=== PATIENT | female | born 1985 | race Caucasian/White ===

== ENCOUNTER 2019-08-12 11:07 | Emergency (ER) | payer OTHER, SELFPAY ==
--- NOTE | ~2019-08-12 | CT_ITS ---
EXAMINATION: CT soft tissue neck w con EXAM DATE: 08/12/2019 12:47 INDICATION: Left-sided facial swelling, started on antibiotics for infected tooth. Swelling has progr essed. TECHNIQUE: Spiral CT of the neck was performed following intravenous injection of 75 mL Omnipaque 350 . Axial, coronal and sagittal images were reviewed. The dose-length product (DLP) for this examinat ion was 493.52 mGy-cm. The exposure was tailored according to patient size (auto mA exposure control ), and iterative reconstruction (ASIR) was used as additional dose reduction technique. There is no prior study for comparison. FINDINGS: There is swelling along the left side of the face, superficial and deep to the platysmas mu scle. There is some reactive left submandibular lymph node. No pathologically enlarged lymph nodes or drainable abscess identified. There are several dental cavities noted. There is a thin-walled cystic mass in the midline at the level of the hyoid and thyroid cartilage jacobo suring up to 3 cm, without any solid component or adjacent inflammation. Appearance is most consisten t with an incidental thyroglossal duct cyst. The thyroid gland is unremarkable. The submandibular and parotid glands are symmetric. The superior mediastinum is unremarkable. The airway is unremar kable. Parapharyngeal and pre-glottic fat planes are preserved. The opacified vasculature is solis nt. The orbits are unremarkable. Visualized sinuses and mastoid air cells are well aerated. Mary g apices are clear. Cervical spine unremarkable. IMPRESSION: 1. Left facial swelling, some reactive submandibular lymph nodes. No drainable abscess. 2. Incidental anterior midline simple cystic neck mass most likely thyroglossal duct cyst. 3. Dental cavities. Reviewed, dictated and finalized at location B. IMPRESSION: 1. Left facial swelling, some reactive submandibular lymph nodes. No drainable abscess. 2. Incidental anterior midline simple cystic neck mass most likely thyroglossa l duct cyst. 3. Dental cavities.
[2019-08-12 11:11] VITALS: BP 131/95; PULSE 99; RESP 17; TEMP 37.4; O2SAT 98
[2019-08-12] MEDS: SODIUM CHLORIDE 0.9% IV 1,000 ML 999 ML IV CONT (12:06)
[2019-08-12] MEDS: CLINDAMYCIN 900 MG/NS 50 ML 900 MG/50 ML PIGGYBACK 50 MG IVPB (12:10)
[2019-08-12 12:17] LABS: Basophils Absolute Auto 0.1 K/mm3 (0.0-0.1); Basophils Percent Auto 0.4 % (0.2-1.2); Eosinophils Absolute Auto 0.3 K/mm3 (0-0.3); Eosinophils Percent Auto 2.8 % (0-4.4); Hematocrit 44.8 % (37.0-47.0); Hemoglobin 14.7 g/dL (12.0-15.0); Immature Granulocyte Absolute 0.04 K/mm3 (0.00-0.031); Immature Granulocyte Percent A 0.3 % (0-0.5); Lymphocytes Absolute Auto 2.99 K/mm3 (0.9-3.2); Lymphocytes Percent Auto 24.5 % (18.3-44.2); Mean Corpuscular HGB Conc 32.8 g/dl (32-36); Mean Corpuscular Hemoglobin 27.4 pg (26-34); Mean Corpuscular Volume 83.6 fl (80-100); Mean Platelet Volume 11.6 fl (7.4-10.4); Monocytes Absolute Auto 1.1 K/mm3 (0.1-0.6); Monocytes Percent Auto 9.2 % (2.6-8.5); Neutrophils Absolute Auto 7.7 K/mm3 (1.3-6.7); Neutrophils Percent Auto 62.8 % (45.5-73.1); Platelet Count Result 262 k/mm3 (150-375); Red Blood Count 5.36 M/mm3 (4.2-5.4); Red Cell Distribution Width 13.6 % (11.5-14.5); White Blood Count 12.2 K/mm3 (4.5-10.0)
--- NOTE | 2019-08-12 12:19 | ED.GENADULT ---
HPI - General Adult General Chief complaint: Unspecified <Zaid Amaya PA-C - Last Filed: 08/12/19 14:19> Stated complaint: left side of face is swollen <Zaid Amaya PA-C - Last Filed: 08/12/19 14:19> Time Seen by Provider: 08/12/19 11:08 <Zaid Amaya PA-C - Last Filed: 08/12/19 14:19> Source: patient <Zaid Amaya PA-C - Last Filed: 08/12/19 14:19> Mode of arrival: ambulatory <Zaid Amaya PA-C - Last Filed: 08/12/19 14:19> Limitations: no limitations <Zaid Amaya PA-C - Last Filed: 08/12/19 14:19> History of Present Illness HPI narrative: Patient is a 34-year-old female who presents with left-sided facial pain and dental pain that began over the course of the last several days on Monday was started on amoxicillin twice daily. Patient has been taking this medication with minimal improvement noting that she continues to have some swelling also took ibuprofen patient denies any difficulty swallowing patient denies any fever chills nausea vomiting. Patient notes that her sugars have been normal and have not elevated. On arrival patient in the room in no distress <Zaid Amaya PA-C - Last Filed: 08/12/19 14:19> Related Data Home medications: Home Medications Medication Instructions Recorded Confirmed amoxicillin 250 mg PO TID 08/12/19 <Zaid Amaya PA-C - Last Filed: 08/12/19 14:19> Allergies/adverse reactions: Allergies Allergy/AdvReac Type Severity Reaction Status Date / Time No Known Allergies Allergy Unknown Verified 08/12/19 11:10 <Zaid Amaya PA-C - Last Filed: 08/12/19 14:19> Review of Systems Review of Systems: All systems reviewed & are unremarkable except as noted in HPI and below <Zaid Amaya PA-C - Last Filed: 08/12/19 14:19> PMFSH Past Medical History Medical History: Medical History Diabetes <CONNER Irvin Last Filed: 08/12/19 14:19> Social History Social History: Social History Smoking status: Never smoker Gender identity (if verbalized by the patient): Female <Zaid Amaya PA-C - Last Filed: 08/12/19 14:19> Exam Narrative: Exam Narrative: GENERAL: Well-appearing, obese, and in no acute distress. HEAD: Normocephalic, atraumatic. Swelling along the left cheek no erythema with tenderness along the mandible EYES: PERRLA and EOMI. ENT: Nares clear, no rhinorrhea or epistaxis. Mucous membranes moist. Oropharynx without tonsillar hypertrophy exudate or other lesions. Patient with gross dentition with tenderness along the lateral gumline patient with soft floor of the mouth uvula midline no trismus or drooling NECK: Supple. No adenopathy or masses. CHEST: Clear to auscultation. No respiratory distress. No wheezes rales or rhonchi HEART: Regular rate and rhythm. No murmur heard. EXTREMITIES: Normal range of motion. No edema. SKIN: Warm, dry, no rash. NEURO: No focal deficits. Alert and oriented x3. PSYCH: Normal mood and affect. <Zaid Amaya PA-C - Last Filed: 08/12/19 14:19> Course Course Emergency Course: Patient in the room aware of case findings treatment plan and diagnosis was given medications in the emergency department will be switched to clindamycin and advised to follow-up with dentistry and given reasons to return patient is afebrile nontoxic-appearing no distress <Zaid Amaya PA-C - Last Filed: 08/12/19 14:19> Vital Signs Vital signs: Vital Signs Temperature 99.3 F 08/12/19 11:11 Pulse Rate 99 08/12/19 11:11 Respiratory Rate 17 08/12/19 11:11 Blood Pressure 131/95 H 08/12/19 11:11 Pulse Oximetry 98 08/12/19 11:11 Temperature 99.3 F 08/12/19 11:11 Pulse Rate 88 08/12/19 14:25 Respiratory Rate 19 08/12/19 14:25 Blood Pressure 118/85 08/12/19 14:25 Pulse Oximetr
[2019-08-12 12:33] LABS: Blood Urea Nitrogen 11 mg/dL (7-17); Carbon Dioxide 27 mmol/L (22-30); Chloride 102 mmol/L (98-107); Estimated Glomerular Filt Rate > 60; Glucose 276 mg/dL (65-105); Potassium 3.5 mmol/L (3.4-5.0); Sodium 139 mmol/L (137-145)
[2019-08-12 12:36] LABS: Estimated Glomerular Filt Rate > 60
[2019-08-12 14:25] VITALS: BP 118/85; PULSE 88; RESP 19; O2SAT 98
== END 2019-08-12 14:27 | disposition home or self-care (01) ==
PROVIDERS: Emergency Medicine Emergency Medical Services; Emergency Provider General Practice
DX: K04.7 Periapical abscess without sinus (principal); E11.9 Type 2 diabetes mellitus without complications
CPT/HCPCS: 36415; 70491; 80048; 81025; 85025; 96365; 96375; 99284; J0131; J7030; Q9967

== ENCOUNTER 2020-06-08 20:48 | Emergency (ER) | payer OTHER, SELFPAY ==
[2020-06-08 20:53] VITALS: BP 157/100; PULSE 111; RESP 16; TEMP 37; O2SAT 100
--- NOTE | 2020-06-08 21:56 | ED.SKABFB ---
HPI - Skin/Abscess/Foreign Bdy General Chief complaint: Skin/Abscess/Foreign Body Stated complaint: lump on my back, bump to left axilla Time Seen by Provider: 06/08/20 21:12 History of Present Illness HPI narrative: Patient is a 35-year-old female who presents ER with concerns for abscess formation. Patient reports on her right back she developed an area couple days ago that began draining pus and is very tender around it. She has a similar lesion along the hairline back of her head that is actively draining. She also started developing a lump in her left axilla that is not red and has no draining. She is unsure why this is occurring. She said no fevers or chills or sweats. No nausea/vomiting. Related Data Home Medications Medication Instructions Recorded Confirmed amoxicillin 250 mg PO TID 08/12/19 Allergies Allergy/AdvReac Type Severity Reaction Status Date / Time No Known Allergies Allergy Unknown Verified 06/08/20 20:49 Review of Systems Constitutional: Constitutional: Denies chills, Denies fever(s) and Denies weakness Musculoskeletal: Musculoskeletal: Denies back pain, Denies muscle cramps and Denies muscle weakness Integumentary/Breasts: Skin/Breast: Reports erythema Comments: Pain, abscesses. [facility] Past Medical History Medical History (Updated 06/08/20 @ 23:36 by Imtiaz Looney MD) Asthma Diabetes Hypercholesterolemia Hypertension Psoriasis Surgical History Surgical History (Updated 06/08/20 @ 21:58 by Imtiaz Looney MD) History of tonsillectomy Social History Social History Smoking status: Never smoker Gender identity (if verbalized by the patient): Female Exam Narrative: Exam Narrative: GENERAL: Well-appearing, well-nourished, and in no acute distress. HEAD: Normocephalic, atraumatic. EXTREMITIES: Normal range of motion. No edema. SKIN: Warm, dry. Small cutaneous abscess right back near the scapula that has 4 cm diameter of cellulitis. There is additional small abscess at the nape of the neck posteriorly is actively draining with scant cellulitis surrounding it. Left axilla with a palpable abscess without overlying cellulitis. NEURO: Alert and oriented x3. PSYCH: Normal mood and affect. Course Course Emergency Course: Patient tolerated procedure well. Discharged with Bactrim. Follow-up with PCP. Remove packing in 2 days. Vital Signs Vital signs: Vital Signs Temperature 98.6 F 06/08/20 20:53 Pulse Rate 111 H 06/08/20 20:53 Respiratory Rate 16 06/08/20 20:53 Blood Pressure 157/100 H 06/08/20 20:53 Pulse Oximetry 100 06/08/20 20:53 Temperature 98.6 F 06/08/20 20:53 Pulse Rate 111 H 06/08/20 20:53 Respiratory Rate 16 06/08/20 20:53 Blood Pressure 157/100 H 06/08/20 20:53 Pulse Oximetry 100 06/08/20 20:53 Procedures Abscess I/D back: Date of Incision: 06/08/20 Time of Incision: 23:00 Local Anesthetic: lidocaine 1% and with epi Amount of anesthesia used (mL): 5 Technique: incised with #11 blade Irrigation: No Packing used?: iodoform I&D Results: Pus Complications: pain left axilla: Date of Incision: 06/08/20 Time of Incision: 23:15 Local Anesthetic: lidocaine 1% and with epi Amount of anesthesia used (mL): 4 Technique: incised with #11 blade Packing used?: iodoform I&D Results: Pus Discharge Plan Discharge Clinical Impression: Abscess of skin or subcutaneous tissue Patient Disposition: Home, Self-Care Condition: Stable Instructions: Antibiotic Form, Abscess (ED) Additional Instructions: Remove your packing in 2 days. Return the ER if you have fever over 100.4 ?F, you have increased swelling or pain, or you have any additional concerns. Prescriptions: New sulfamethoxazole-trimethoprim [Bactrim DS] 800-160 mg tablet 1 tablet PO Q12H Qty: 14 RF:
--- NOTE | 2020-06-08 23:18 | PC.NURSE ---
Assumed care of Pt. at this time. Report from SUSIE Hood
[2020-06-08 23:40] VITALS: BP 132/87; PULSE 71; RESP 20; O2SAT 97
== END 2020-06-08 23:40 | disposition home or self-care (01) ==
PROVIDERS: Emergency Provider Emergency Medicine; PCP Internal Medicine Gastroenterology
DX: L02.412 Cutaneous abscess of left axilla (principal); L02.212 Cutaneous abscess of back [any part, except buttock and flank]; J45.909 Unspecified asthma, uncomplicated; E11.9 Type 2 diabetes mellitus without complications; I10 Essential (primary) hypertension; E78.00 Pure hypercholesterolemia, unspecified; L40.9 Psoriasis, unspecified
CPT/HCPCS: 10061; 95863; 99283

== ENCOUNTER 2020-06-30 20:42 | Emergency (ER) | payer OTHER, SELFPAY ==
[2020-06-30 21:28] VITALS: BP 130/89; PULSE 110; RESP 20; TEMP 36.4; O2SAT 97
[2020-07-01] VITALS: BP 144/85; PULSE 118; O2SAT 95
[2020-07-01 00:03] VITALS: BP 154/94; PULSE 114; RESP 18; O2SAT 96
--- NOTE | 2020-07-01 00:10 | ED.SKABFB ---
HPI - Skin/Abscess/Foreign Bdy General Chief complaint: Skin/Abscess/Foreign Body Stated complaint: abcess on back Time Seen by Provider: 06/30/20 23:56 Source: patient Mode of arrival: ambulatory Limitations: no limitations History of Present Illness HPI narrative: 35-year-old female comes into the emergency department with complaints of an abscess on her upper back. Patient states that she gets multiple abscesses and usually has to have them drained. She states this 1 has been there for approximately 1 week and is been very tender. She notes that it does continuously open has started draining on its own. Patient denies any fevers or chills. Related Data Home Medications Medication Instructions Recorded Confirmed amoxicillin 250 mg PO TID 08/12/19 Allergies Allergy/AdvReac Type Severity Reaction Status Date / Time No Known Allergies Allergy Unknown Verified 06/08/20 20:49 Review of Systems Review of Systems: Narrative: CONSTITUTIONAL: Denies fever, chills, or sweats. EYES: Denies visual changes, redness, or discharge. ENT: Denies rhinorrhea, congestion, sore throat, or otalgia. CARDIOVASCULAR: Denies chest pain, palpitations, or edema. RESPIRATORY: Denies cough or dyspnea. GASTROINTESTINAL: Denies abdominal pain, nausea, vomiting, or diarrhea. GENITOURINARY: Denies dysuria or hematuria. SKIN: Denies rash or itching. MUSCULOSKELETAL: Denies back pain, joint pain, or myalgia. NEUROLOGIC: Denies headache, numbness, dizziness, or weakness. PSYCHIATRIC: Denies anxiety or depression. [facility] Past Medical History Medical History Asthma Diabetes Hypercholesterolemia Hypertension Psoriasis Surgical History Surgical History History of tonsillectomy Social History Social History Smoking status: Never smoker Gender identity (if verbalized by the patient): Female Exam Narrative: Exam Narrative: GENERAL: Well-appearing, well-nourished, and in no acute distress. HEAD: Normocephalic, atraumatic. EYES: PERRLA and EOMI. ENT: Nares clear, no rhinorrhea or epistaxis. Mucous membranes moist. Oropharynx without tonsillar hypertrophy exudate or other lesions. Bilateral TMs pearly zheng nonbulging NECK: Supple. No adenopathy or masses. No carotid bruits or JVD CHEST: Clear to auscultation. No respiratory distress. No wheezes rales or rhonchi HEART: Regular rate and rhythm. No murmur heard. Normal peripheral pulses. ABDOMEN: Soft, nontender, nondistended, normal active bowel sounds. EXTREMITIES: Normal range of motion. No edema. SKIN: Warm, dry, no rash. Indurated area at the level of T2-T4, approximately 5 cm in diameter. Actively draining purulent material NEURO: No focal deficits. Alert and oriented x3. PSYCH: Normal mood and affect. Course Vital Signs Vital signs: Vital Signs Temperature 36.4 C L 06/30/20 21:28 Pulse Rate 110 H 06/30/20 21:28 Respiratory Rate 20 06/30/20 21:28 Blood Pressure 130/89 06/30/20 21:28 Pulse Oximetry 97 06/30/20 21:28 Temperature 36.4 C L 06/30/20 21:28 Pulse Rate 110 H 06/30/20 21:28 Respiratory Rate 20 06/30/20 21:28 Blood Pressure 130/89 06/30/20 21:28 Pulse Oximetry 97 06/30/20 21:28 MDM - Skin/Abscess/Foreign Bdy MDM Narrative Medical decision making narrative: In brief this 35-year-old female came into the emergency department with complaints of an actively draining abscess. On my exam I did see an indurated area with a spontaneous opening draining purulent material. I was able to express a good deal of purulent material out. Patient was given a dose of pain medication antibiotics. She will be given a prescription for Bactrim upon discharge. Encouraged patient and family member to continue expressing purulent material so that the tract does not close back up. She states that she
[2020-07-01] MEDS: HYDROcodone/acetaminophen (*CRX) 5-325 MG TABLET 1 TAB PO (01:02)
[2020-07-01] MEDS: IBUPROFEN 600 MG TABLET PO (01:03)
[2020-07-01 01:08] VITALS: BP 144/90; PULSE 98; RESP 15; O2SAT 99
== END 2020-07-01 01:09 | disposition home or self-care (01) ==
PROVIDERS: Emergency Provider Emergency Medicine; PCP Internal Medicine Gastroenterology
DX: L02.212 Cutaneous abscess of back [any part, except buttock and flank] (principal); J45.909 Unspecified asthma, uncomplicated; E11.9 Type 2 diabetes mellitus without complications; E78.00 Pure hypercholesterolemia, unspecified; I10 Essential (primary) hypertension
CPT/HCPCS: 99283; A9270

== ENCOUNTER 2021-03-10 22:10 | Inpatient (IN) | payer OTHER, SELFPAY ==
--- NOTE | ~2021-03-10 | XR_ITS ---
EXAMINATION: XR foot LT min 3V DATE: 03/11/2021 01:22 INDICATION: Osteomyelitis TECHNIQUE: Dorsoplantar, two oblique and lateral views of the left foot were obtained. COMPARISON: 04/18/2014 FINDINGS: There is osteolysis at the base of the left fourth proximal phalanx consistent with osteomyelitis. Mi nimally displaced secondary pathologic fracture extending across the proximal metaphyseal region. Ali gnment remains near-anatomic. There is slight widening of the fourth metatarsophalangeal joint space suspicious for septic arthritis although there is no evident osteolysis of the head of the fourth met atarsal. No other fractures or lesions suspicious for osteomyelitis identified. Mild osteoarthritis a t a few of the interphalangeal joints. Small Achilles and plantar calcaneal spurs. Soft tissue swelli ng in the forefoot centered about the base of the fourth toe. No evident soft tissue gas or radiopaqu e foreign bodies. IMPRESSION: 1. Osteomyelitis and secondary pathologic fracture at the base of the left fourth proximal phalanx wi th possible septic arthritis at the fourth metatarsophalangeal joint. Reviewed, dictated and finalized at location A. IMPRESSION: 1. Osteomyelitis and secondary pathologic fracture at the base of the left four th proximal phalanx with possible septic arthritis at the fourth metatarsophala ngeal joint.
--- NOTE | ~2021-03-10 | US_ITS ---
EXAMINATION: US soft tissue upper back EXAM DATE: 03/11/2021 09:06 INDICATION: Assess extent of abscess. TECHNIQUE: Multiple grayscale and Doppler images of the soft tissue upper back were obtained (by a te chnologist who performed the scan) and subsequently reviewed. There is no prior study for comparison . FINDINGS: Scanning in symptomatic region demonstrates ill-defined heterogeneous subcutaneous region measuring a bout 1 cm in thickness by about 2 cm in diameter. Within the more superficial and central portion of this there is focal region with echogenic wall causing some shadowing measuring about 8 mm. The echog enic foci could be some calcification such as calcified sebaceous cyst wall, or could be foci of gas. Central portion to this does not well evaluated due to artifact, uncertain whether or not there is a ny drainable fluid but the possible drainable component would be less than 7 mm in diameter. Larger s urrounding ill-defined region does have some hypervascularity, consistent with phlegmon given history provided. No evidence of involvement of underlying musculature. IMPRESSION: Heterogeneous hypervascular subcutaneous upper back region as reported above. Reviewed, dictated and finalized at location A. IMPRESSION: Heterogeneous hypervascular subcutaneous upper back region as repor marni above.
--- NOTE | ~2021-03-10 | XR_ITS ---
XR chest PICC line DATE: 03/13/2021 20:31 INDICATION: PICC placement TECHNIQUE: Portable AP chest on 03/13/20212024 hours COMPARISON: 03/27/2019 PA and lateral chest FINDINGS: Right upper extremity PICC catheter tip overlies the proximal superior vena cava. Patchy diffuse bilateral pulmonary infiltrates. No pleural effusion. No pneumothorax. Heart size is l ikely within normal range considering magnification associated with AP projection. IMPRESSION: Right upper extremity PIC catheter tip overlying proximal superior vena cava Reviewed, dictated and finalized at Location A. Reviewed, dictated and finalized at location A.
[2021-03-10 23:02] VITALS: BP 138/71; PULSE 120; RESP 18; TEMP 37.3; O2SAT 98
[2021-03-10 23:16] VITALS: O2SAT 96
[2021-03-10 23:19] VITALS: BP 116/70; RESP 17; O2SAT 94
[2021-03-10 23:56] VITALS: PULSE 117; RESP 17; O2SAT 95
[2021-03-10 23:56] LABS: Add Urine Microscopic? YES; Appearance Urine Cloudy (Clear); Bilirubin Urine Negative (Negative); Blood Urine 1+ (Negative); Color Urine Yellow (Yellow); Glucose Urine UA 3+ mg/dL (Negative); Ketones Urine Negative (Negative); Leukocyte Esterase Ur 2+ LEU/UL (Negative); Nitrate Urine Negative (Negative); Protein Urine 1+ mg/dL (Negative); Specific Grav Ur 1.028 (1.001-1.035); Squamous Epithelial Cell Urine Many /hpf (Few); Urobilinogen Urine Negative mg/dL (<2.0); WBC Urine 51-75 /hpf
[2021-03-11] VITALS (13 sets, daily range): BP systolic 105–136; BP diastolic 62–77; PULSE 89–120; RESP 13–23; TEMP 36.1–37.1; O2SAT 92–100; BMI 39.4
[2021-03-11] MEDS: SODIUM CHLORIDE 0.9% IV 1,000 ML 150 ML IV CONT (00:25)
[2021-03-11 00:45] LABS: Basophils Absolute Auto 0.1 K/mm3 (0.0-0.1); Basophils Percent Auto 0.7 % (0.2-1.2); Eosinophils Absolute Auto 0.2 K/mm3 (0-0.3); Eosinophils Percent Auto 1.7 % (0-4.4); Hematocrit 39.2 % (37.0-47.0); Hemoglobin 11.9 g/dL (12.0-15.0); Immature Granulocyte Absolute 0.03 K/mm3 (0.00-0.031); Immature Granulocyte Percent A 0.3 % (0-0.5); Lymphocytes Absolute Auto 2.73 K/mm3 (0.9-3.2); Lymphocytes Percent Auto 23.8 % (18.3-44.2); Mean Corpuscular HGB Conc 30.4 g/dl (32-36); Mean Corpuscular Hemoglobin 26.8 pg (26-34); Mean Corpuscular Volume 88.3 fl (80-100); Mean Platelet Volume 10.5 fl (7.4-10.4); Monocytes Absolute Auto 0.9 K/mm3 (0.1-0.6); Neutrophils Absolute Auto 7.5 K/mm3 (1.3-6.7); Neutrophils Percent Auto 65.5 % (45.5-73.1); Platelet Count Result 383 k/mm3 (150-375); Red Blood Count 4.44 M/mm3 (4.2-5.4); Red Cell Distribution Width 13.8 % (11.5-14.5); White Blood Count 11.5 K/mm3 (4.5-10.0)
[2021-03-11 00:47] LABS: Lactic Acid Reflex 1.9 mmol/L (0.7-2.1)
--- NOTE | 2021-03-11 00:51 | ED.EXTPRO ---
HPI - Extremity Problem General Chief complaint: Extremity Problem,Nontraumatic Stated complaint: left foot swelling x 2 weeks Time Seen by Provider: 03/10/21 23:19 Source: patient Mode of arrival: ambulatory Limitations: no limitations History of Present Illness HPI Narrative: 36-year-old with a history of diabetes here with complaints of left foot ulcer for past 1 week. Patient states that she was seen in [facility] was started on antibiotic and she also states that she has seen her primary doctor who ordered an x-ray but had no results. She states that she has been having chills. Denies any nausea or vomiting. She states her blood sugars are running high Complaint: extremity pain and extremity swelling Onset (ago): week(s) (1) Pain Consistency: constant Location: left Radiation: none Relieving factors: nothing Exacerbating factors: nothing Related Data Home Medications Medication Instructions Recorded Confirmed amoxicillin 250 mg PO TID 08/12/19 Allergies Allergy/AdvReac Type Severity Reaction Status Date / Time No Known Allergies Allergy Unknown Verified 06/08/20 20:49 Review of Systems Review of Systems: All systems reviewed & are unremarkable except as noted in HPI and below Constitutional: Constitutional: Reports no additional constitutional complaints Eyes: Eyes: Reports no additional eye complaints ENT: Reports system reviewed and no additional complaints, except as documented Cardiovascular: Cardiovascular: Reports no additional cardiovascular complaints Respiratory: Respiratory: Reports no additional respiratory complaints Gastrointestinal: Gastrointestinal: Reports no additional gastrointestinal complaints Musculoskeletal: Musculoskeletal: Reports as per HPI Integumentary/Breasts: Skin/Breast: Reports as per HPI PMFSH Past Medical History Medical History Asthma Diabetes Hypercholesterolemia Hypertension Psoriasis Surgical History Surgical History History of tonsillectomy Social History Social History Smoking status: Never smoker Gender identity (if verbalized by the patient): Female Exam Narrative: GENERAL: Well-appearing, well-nourished, and in no acute distress. HEAD: Normocephalic, atraumatic. EYES: PERRLA and EOMI. NECK: Supple. CHEST: Clear to auscultation. No respiratory distress. HEART: Regular rate and rhythm. No murmur heard. Normal peripheral pulses. ABDOMEN: Soft, nontender, nondistended, normal active bowel sounds. EXTREMITIES: Normal range of motion. No edema Examination of the left foot . 4 th and 5 th toe are inflamed , pustular with drainage skin on the sole is peeling has pressure ulcer at the base of the great toe. SKIN: Warm, dry, no rash. NEURO: No focal deficits. Alert and oriented x3. PSYCH: Normal mood and affect. Course Course Emergency Course: Informed pt about her lab work , will admit to the Hospital and start on IV Antibiotic. Vital Signs Vital signs: Vital Signs Temperature 37.3 C 03/10/21 23:02 Pulse Rate 120 H 03/10/21 23:02 Respiratory Rate 18 03/10/21 23:02 Blood Pressure 138/71 03/10/21 23:02 Pulse Oximetry 98 03/10/21 23:02 Temperature 37.3 C 03/10/21 23:02 Pulse Rate 120 H 03/10/21 23:02 Respiratory Rate 18 03/10/21 23:02 Blood Pressure 138/71 03/10/21 23:02 Pulse Oximetry 98 03/10/21 23:02 MDM - Extremity (Nontraumatic) Lab Data Result diagrams: 03/11/21 00:24 03/11/21 00:24 Labs: Lab Results 03/10/21 03/11/21 03/11/21 Range/Units 23:45 00:24 00:24 WBC 11.5 H (4.5-10.0) K/mm3 RBC 4.44 (4.2-5.4) M/mm3 Hgb 11.9 L (12.0-15.0) g/dL Hct 39.2 (37.0-47.0) % MCV 88.3 (80-100) fl MCH 26.8 (26-34) pg MCHC 30.4 L (32-36) g/dl RDW 13.8 (11.5-1
[2021-03-11 01:09] LABS: Alanine Aminotransferase 23 U/L (4-35); Albumin Level 3.8 g/dL (3.5-5.1); Alkaline Phosphatase 110 U/L (38-126); Anion Gap 8 mmol/L (8-16); Aspartate Amino Transferase 25 U/L (14-36); Bilirubin,Total 0.4 mg/dL (0.2-1.3); Blood Urea Nitrogen 11 mg/dL (7-17); Calcium 9.5 mg/dL (8.4-10.2); Carbon Dioxide 25 mmol/L (22-30); Chloride 100 mmol/L (98-107); Estimated Glomerular Filt Rate > 60; Glucose 419 mg/dL (65-110); Potassium 4.3 mmol/L (3.4-5.0); Sodium 133 mmol/L (137-145)
--- NOTE | 2021-03-11 03:20 | PC.NURSE ---
RN spoke with Dr. Laboy (Hospitalist) about elevated BG level. Dr. Rahman had already left for the night.MD gave order that he did not want to give additional insulin, wanted to continue SSI but start AM dose now for aspart. RN attempted to call Sindhu RICHARDS on the floor to relay message, but RN busy and will call back
--- NOTE | 2021-03-11 03:45 | ADMGEN ---
This patient, Gem Morales, was admitted to Medical Room 258-01. Patient/family oriented to hospital policies and general routines including ID bracelet, bed and alarms, visiting hours, pain management, procedures, bathroom and other care routines, personal items, smoking policy, room service/diet, and visiting hours. Information on how to activate the Rapid Response Team has been discussed. Patient/Family are encouraged to report perceived risks to care and to ask questions if they do not understand what they are told or what they should do.
[2021-03-11] MEDS: SODIUM CHLORIDE 0.9% IV 1,000 ML 75 ML IV CONT ×2 (03:54→21:11)
[2021-03-11] MEDS: INSULIN ASPART (*BKC) 100 UNITS/ML SUB-Q ×3 (04:28→16:36)
--- NOTE | 2021-03-11 05:25 | PM.IMHP ---
H&P: HPI History of Present Illness Date/Time: 03/11/21 05:25 Chief Complaint: Left foot wound Narrative: 36-year-old with a history of diabetes on oral hypoglycemic agent presents with left foot infection for the past 2 weeks. She states that it started with some shortness in her left 4th and 5th toe without any blister however started to turn reddish with increased pain. She was seen in [facility] and was started on antibiotic and later saw her primary care doctor who ordered an x-ray the result of which is not known. She reports no fever or chills no nausea vomiting abdominal pain. She notes her blood sugar has been running high. She does not know her recent A1c. The foot wound has worsened with increased involvement of her forefoot and hence came to the ED for evaluation. Which is an ongoing since past several months. It was not draining until today when he started draining pus-like drainage is from a small opening in the back. She states it does not hurt in that area and wants it to be left alone. Review of Systems Review of Systems: - CONSTITUTIONAL: Denies weight loss, fever and chills. - HEENT: Denies changes in vision and hearing - RESPIRATORY: Denies SOB and cough. - CV: Denies palpitations and CP. - GI: Denies abdominal pain, nausea, vomiting and diarrhea. - : Denies dysuria and urinary frequency. - MSK: Denies myalgia and joint pain. Reports left foot wound as described in HPI - SKIN: Denies rash and pruritus. - NEUROLOGICAL: Denies headache and syncope. - PSYCHIATRIC: Denies recent changes in mood. Denies anxiety and depression. All systems reviewed & are unremarkable except as noted in HPI and below Constitutional: Constitutional: Reports fatigue and Reports weakness Neurologic: Reports weakness Endocrine: Endocrine: Reports fatigue PMF Past Medical History Medical History (Updated 03/11/21 @ 05:38 by Julien Snowden MD) Asthma Diabetes Hypercholesterolemia Hypertension Psoriasis Surgical History Surgical History History of tonsillectomy Social History Social History Smoking status: Never smoker Alcohol intake: never Substance use: never Gender identity (if verbalized by the patient): Female Spiritual care concerns: No Meds Home Medications and Allergies Home Medications Medication Instructions Recorded Confirmed Type ibuprofen [Motrin IB] 600 mg PO Q6H PRN 3 Days #7 cap 03/10/19 Rx amoxicillin 250 mg PO TID 08/12/19 History clindamycin HCl 300 mg PO BID 03/11/21 03/11/21 History gabapentin 1,200 mg PO HS 03/11/21 03/11/21 History gabapentin 600 mg PO BID 03/11/21 03/11/21 History metformin 1,000 mg PO BID 03/11/21 03/11/21 History Allergies Allergy/AdvReac Type Severity Reaction Status Date / Time No Known Allergies Allergy Unknown Verified 03/11/21 05:18 Vital Signs Vital Signs - 24 hr 03/10/21 23:02 03/10/21 23:16 03/10/21 23:19 Temperature 99.2 F Pulse Rate 120 H Respiratory Rate 18 17 Blood Pressure 138/71 116/70 Pulse Oximetry 98 96 94 03/10/21 23:56 03/11/21 00:00 03/11/21 00:01 Temperature Pulse Rate 117 H 120 H 118 H Respiratory Rate 17 23 H 20 Blood Pressure 136/68 Pulse Oximetry 95 03/11/21 00:15 03/11/21 00:30 03/11/21 01:21 Temperature Pulse Rate 109 H 109 H 100 Respiratory Rate 13 21 H 20 Blood Pressure Pulse Oximetry 03/11/21 01:36 03/11/21 01:37 03/11/21 01:45 Temperature Pulse Rate 89 91 95 Respiratory Rate 17 15 20 Blood Pressure 105/64 Pulse Oximetry 93 94 92 03/11/21 04:00 Temperature 97.0 F L Pulse Rate 93 Respiratory Rate 21 H Blood Pressure 111/73 Pulse Oximetry 100 Exam Narrative: GENERAL: Well-appearing, well-nourished, and in no acute distress. HEAD: Normocephalic, atraumatic. EYES: PERRLA and EOMI. NECK: Supple. Nontender er
[2021-03-11] MEDS: INSULIN GLARGINE (*BKC) 100 UNITS/ML 20 UNITS SUB-Q ×2 (06:26→08:16)
[2021-03-11 07:44] LABS: Glucose Point of Care 193 mg/dl (65-105)
[2021-03-11 08:03] LABS: Glucose Point of Care 230 mg/dl (65-105)
[2021-03-11 08:03] LABS: Glucose Point of Care 321 mg/dl (65-105)
[2021-03-11] MEDS: HYDROcodone/acetaminophen (*CRX) 5-325 MG TABLET 1 TAB PO ×3 (08:15→21:06)
[2021-03-11] MEDS: INSULIN ASPART (*BKC) 100 UNITS/ML 7 UNITS SUB-Q ×3 (08:15→16:36)
[2021-03-11 12:03] LABS: Glucose Point of Care 210 mg/dl (65-105)
[2021-03-11 12:49] LABS: Hemoglobin A1C 13.5 % (<5.7)
--- NOTE | 2021-03-11 15:07 | PM.IMPN ---
Progress Note: A&P Assessment and Plan (1) Osteomyelitis of ankle or foot, left, acute: Code(s): M86.172 - Other acute osteomyelitis, left ankle and foot Status: Acute (2) Pathological fracture: Qualifiers: Pathology associated with fracture: unspecified disease Site of pathological fracture: foot Encounter type: initial encounter Laterality: left Qualified Code(s): M84.475A - Pathological fracture, left foot, initial encounter for fracture Code(s): M84.40XA - Pathological fracture, unspecified site, initial encounter for fracture Status: Acute (3) Septic arthritis: Qualifiers: Septic arthritis organism: due to unspecified organism Laterality: left Septic arthritis location: foot Qualified Code(s): M00.9 - Pyogenic arthritis, unspecified Code(s): M00.9 - Pyogenic arthritis, unspecified Status: Acute (4) Leukocytosis: Qualifiers: Leukocytosis type: unspecified Qualified Code(s): D72.829 - Elevated white blood cell count, unspecified Code(s): D72.829 - Elevated white blood cell count, unspecified Status: Acute (5) Hyponatremia: Code(s): E87.1 - Hypo-osmolality and hyponatremia Status: Acute (6) Abnormal urinalysis: Code(s): R82.90 - Unspecified abnormal findings in urine Status: Acute (7) Hypertension: Qualifiers: Hypertension type: unspecified Qualified Code(s): I10 - Essential (primary) hypertension Code(s): I10 - Essential (primary) hypertension Status: Acute (8) Hypercholesterolemia: Code(s): E78.00 - Pure hypercholesterolemia, unspecified Status: Acute (9) Diabetic foot ulcer: Qualifiers: Diabetes mellitus type: type 2 Diabetic foot ulcer location: toe Laterality: left Non-pressure ulcer stage: limited to breakdown of skin Qualified Code(s): E11.621 - Type 2 diabetes mellitus with foot ulcer; L97.521 - Non-pressure chronic ulcer of other part of left foot limited to breakdown of skin Code(s): E11.621 - Type 2 diabetes mellitus with foot ulcer; L97.509 - Non-pressure chronic ulcer of other part of unspecified foot with unspecified severity Status: Acute (10) Cellulitis: Qualifiers: Laterality: left Site of cellulitis: extremity Site of cellulitis of extremity: toe Qualified Code(s): L03.032 - Cellulitis of left toe Code(s): L03.90 - Cellulitis, unspecified Status: Acute (11) Type 2 diabetes mellitus: Qualifiers: Diabetes mellitus meterman insulin use: without meterman use Diabetes mellitus complication status: with hyperglycemia Qualified Code(s): E11.65 - Type 2 diabetes mellitus with hyperglycemia Code(s): E11.9 - Type 2 diabetes mellitus without complications Status: Acute (12) Abscess of back: Code(s): L02.212 - Cutaneous abscess of back [any part, except buttock] Status: Acute Additional Plan 1. Osteomyelitis of the left fourth proximal phalanx: -patient remaining ulcer noted over the left 4th proximal phalanx probing to the bone -started on IV vancomycin and imipenem; continue for now -blood cultures sent -given the abscess or the back which has been present for a longer time than the development of this osteomyelitis, we will wait for blood cultures to result before moving ahead with the possibility of an ECHO -podiatry be brought on board for further recommendations regarding possibility of debridement, if required -based on recommendations from Podiatry and if debridement is needed, patient will be considered for long-term IV antibiotics for osteomyelitis; antibiotics will need to be streamlined as per wound culture results 2. Pathological fracture at the base of left 4th proximal phalanx: -noted in the x-ray -await recommendations from Podiatry 3. Septic arthritis 4th metatarsophalangeal joint: -continue antibiotics as above 4. Disposition: -will wait for Podia
--- NOTE | 2021-03-11 15:09 | PM.CNGS ---
Assessment and Plan Assessment and plan (1) Osteomyelitis of ankle or foot, left, acute: Code(s): M86.172 - Other acute osteomyelitis, left ankle and foot Status: Acute Assessment and Plan: imaging and wound reviewed, will likely need amputation, pt would like second opinion, will get ortho to see, cont local wound care and IV abx for now (2) Abscess of back: Code(s): L02.212 - Cutaneous abscess of back [any part, except buttock] Status: Acute Assessment and Plan: likely infected sebaceous cyst, already drained, no s/s active infection, cont local wound care (3) Type 2 diabetes mellitus: Qualifiers: 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 Pt reports area had a small ulcer that she had been treating at home and seemed to be controlled. About 2 wks ago, area became much more infected appearing. Pt was seen at OSH and admitted for IV abx. Pt then dc'd c po abx. Pt reports area cont to worsen after dc and finally came to ED last night because area had extended to forefoot. Pt also c small abscess on mid upper back. Pt reports area has already opened up and drained. Pt denies any pain from that area. Pt denies any systemic sx although reports sugars have been out of control. Review of Systems Constitutional: Constitutional: Denies chills, Reports fatigue, Denies fever(s), Denies headache(s), Denies lethargy, Denies malaise, Denies poor appetite, Reports weakness, Denies weight gain and Denies weight loss Eyes: Eyes: Reports no additional eye complaints ENT: Reports system reviewed and no additional complaints, except as documented Cardiovascular: Cardiovascular: Reports no additional cardiovascular complaints Respiratory: Respiratory: Reports no additional respiratory complaints Gastrointestinal: Gastrointestinal: Reports no additional gastrointestinal complaints Genitourinary: Genitourinary: Reports no additional female genitourinary complaints Musculoskeletal: Musculoskeletal: Reports as per HPI, Reports abnormal gait, Reports arthralgias and Reports joint swelling Integumentary/Breasts: Skin/Breast: Reports as per HPI, Reports swelling, Reports skin ulcer and Reports wounds Neurologic: Reports system reviewed and no additional complaints, except as documented Psychiatric: Psychiatric: Reports no additional psychiatric complaints Endocrine: Endocrine: Reports no additional endocrine complaints Hematologic/Lymphatic: Hematologic/Lymphatic: Reports no additional hematologic/lymphatic complaints Allergic/Immunologic: Allergic/Immunologic: Reports no additional allergic/immunologic complaints [facility] Past Medical History Medical History Asthma Diabetes Hypercholesterolemia Hypertension Psoriasis Surgical History Surgical History History of tonsillectomy Social History Social History Smoking status: Never smoker Alcohol intake: never Substance use: never Gender identity (if verbalized by the patient): Female Spiritual care concerns: No Meds Home Medications and Allergies Home Medications Medication Instructions Recorded Confirmed Type clindamycin HCl 300 mg PO BID 03/11/21 03/11/21 History gabapentin 1,200 mg PO HS 03/11/21 03/11/21
--- NOTE | 2021-03-11 15:44 | PC.NURSE ---
Call placed to Dr Barclay regarding consult, stated that he does not see patients with diabetic wounds on their feet, pt needs podiatry.
--- NOTE | 2021-03-11 16:03 | PC.NURSE ---
Spoke with Rosa with Dr. Solo's office regarding consult for orthopedics. Dr. Barclay (on-call ortho) declined consult. Called Dr. Cadena (podiatry) who also declined consult. Per Rosa, Dr. Solo wishes to consult Dr. Bingham. Spoke with Jessica Doan, Dr. Bingham cannot accept consult due to being out of town. Notified Uma with Dr. Solo's office of the unsuccessful consults.
[2021-03-11 16:27] LABS: Glucose Point of Care 314 mg/dl (65-105)
[2021-03-11] MEDS: GABAPENTIN 400 MG CAPSULE 1200 MG PO (16:37)
[2021-03-11] MEDS: HEPARIN SODIUM 5,000 UNITS/ML VIAL 5000 UNITS SUB-Q (20:51)
[2021-03-12 01:30] VITALS: BP 120/66; PULSE 87; RESP 14; TEMP 36.6; O2SAT 99
[2021-03-12 02:35] LABS: Glucose Point of Care 179 mg/dl (65-105)
[2021-03-12 05:30] VITALS: BP 122/81; PULSE 85; RESP 14; TEMP 36.4; O2SAT 96
[2021-03-12 07:49] LABS: Glucose Point of Care 191 mg/dl (65-105)
[2021-03-12 08:00] VITALS: BP 109/66; PULSE 92; RESP 14; TEMP 36.2; O2SAT 95
[2021-03-12] MEDS: INSULIN ASPART (*BKC) 100 UNITS/ML 7 UNITS SUB-Q ×3 (08:03→16:36)
[2021-03-12] MEDS: INSULIN GLARGINE (*BKC) 100 UNITS/ML 20 UNITS SUB-Q (08:03)
[2021-03-12] MEDS: GABAPENTIN 300 MG CAPSULE 600 MG PO ×2 (08:03→11:56)
[2021-03-12] MEDS: HEPARIN SODIUM 5,000 UNITS/ML VIAL 5000 UNITS SUB-Q ×2 (08:03→21:52)
[2021-03-12 10:05] LABS: Basophils Absolute Auto 0.1 K/mm3 (0.0-0.1); Basophils Percent Auto 0.5 % (0.2-1.2); Eosinophils Absolute Auto 0.2 K/mm3 (0-0.3); Eosinophils Percent Auto 2.4 % (0-4.4); Hematocrit 35.3 % (37.0-47.0); Hemoglobin 11.4 g/dL (12.0-15.0); Immature Granulocyte Absolute 0.03 K/mm3 (0.00-0.031); Immature Granulocyte Percent A 0.3 % (0-0.5); Lymphocytes Absolute Auto 2.91 K/mm3 (0.9-3.2); Lymphocytes Percent Auto 30.5 % (18.3-44.2); Mean Corpuscular HGB Conc 32.3 g/dl (32-36); Mean Corpuscular Hemoglobin 26.7 pg (26-34); Mean Corpuscular Volume 82.7 fl (80-100); Mean Platelet Volume 9.8 fl (7.4-10.4); Monocytes Absolute Auto 0.8 K/mm3 (0.1-0.6); Neutrophils Absolute Auto 5.6 K/mm3 (1.3-6.7); Neutrophils Percent Auto 58.3 % (45.5-73.1); Platelet Count Result 352 k/mm3 (150-375); Red Blood Count 4.27 M/mm3 (4.2-5.4); Red Cell Distribution Width 13.6 % (11.5-14.5); White Blood Count 9.6 K/mm3 (4.5-10.0)
[2021-03-12 10:31] LABS: Vancomycin Trough 10.5 ug/mL (10.0-20.0)
[2021-03-12 10:43] LABS: Hemoglobin A1C 12.4 % (<5.7)
[2021-03-12 11:12] LABS: Alanine Aminotransferase 25 U/L (4-35); Albumin Level 3.7 g/dL (3.5-5.1); Alkaline Phosphatase 98 U/L (38-126); Anion Gap 11 mmol/L (8-16); Aspartate Amino Transferase 35 U/L (14-36); Bilirubin,Total 0.4 mg/dL (0.2-1.3); Blood Urea Nitrogen 7 mg/dL (7-17); CRP 14.8 mg/dL (<1.0); Calcium 9.3 mg/dL (8.4-10.2); Carbon Dioxide 25 mmol/L (22-30); Chloride 102 mmol/L (98-107); Creatine Kinase 35 U/L (30-135); Estimated Glomerular Filt Rate > 60; Glucose 269 mg/dL (65-110); Magnesium 1.8 mg/dL (1.6-2.3); Phosphorus 3.1 mg/dL (2.5-4.5); Potassium 3.9 mmol/L (3.4-5.0); Sodium 138 mmol/L (137-145)
--- NOTE | 2021-03-12 11:45 | PM.PNGS ---
Progress Note: A&P Assessment and Plan (1) Diabetic foot ulcer: Qualifiers: Diabetes mellitus type: type 2 Diabetic foot ulcer location: toe Laterality: left Non-pressure ulcer stage: limited to breakdown of skin Qualified Code(s): E11.621 - Type 2 diabetes mellitus with foot ulcer; L97.521 - Non-pressure chronic ulcer of other part of left foot limited to breakdown of skin Code(s): E11.621 - Type 2 diabetes mellitus with foot ulcer; L97.509 - Non-pressure chronic ulcer of other part of unspecified foot with unspecified severity Status: Acute Assessment and Plan: long d/w pt re: likely need for amputation, pt would like to try conservative mgmt c IV abx and wound care for now (2) Osteomyelitis of ankle or foot, left, acute: Code(s): M86.172 - Other acute osteomyelitis, left ankle and foot Status: Acute Assessment and Plan: will need IV abx, likely needs PICC (3) Type 2 diabetes mellitus: Qualifiers: 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: without half-way use Diabetes mellitus complication status: with hyperglycemia Qualified Code(s): E11.65 - Type 2 diabetes mellitus with hyperglycemia Code(s): E11.9 - Type 2 diabetes mellitus without complications Status: Acute Assessment and Plan: stressed importance of tight control Subjective Subjective Date/Time Seen: 03/12/21 11:45 feels ok, no acute issues, pt much more receptive today Review of Systems Review of Systems: All systems reviewed & are unremarkable except as noted in HPI and below Exam Const: General: cooperative, comfortable and no acute distress Resp: Effort & Inspection: normal respiratory effort Auscultation: clear to auscultation bilaterally Cardio: Rate: regular rate Rhythm: regular rhythm GI: Inspection: normal to inspection, no edema and non-distended GI Palp: Yes Soft to palpation Skin: Other: L 4th digit ulcer - unchanged, dressing C/D/I Objective Data Vital Signs Vital Signs: Vital Signs - 24 hr 03/11/21 12:00 03/11/21 16:00 03/11/21 21:12 Temperature 36.2 C L 36.3 C L 37.1 C Pulse Rate 97 97 94 Respiratory Rate 21 H 20 18 Blood Pressure 108/62 110/62 123/77 Pulse Oximetry 98 98 97 03/12/21 01:30 03/12/21 05:30 03/12/21 08:00 Temperature 36.6 C 36.4 C 36.2 C L Pulse Rate 87 85 92 Respiratory Rate 14 14 14 Blood Pressure 120/66 122/81 109/66 Pulse Oximetry 99 96 95 Intake/Output Intake/Output: Intake & Output 03/09/21 03/10/21 03/11/21 03/12/21 23:59 23:59 23:59 23:59 Intake Total 4120 1190 Output Total 1050 800 Balance 3070 390 Meds/Results Medications: Active Medications Generic Name Dose Route Start Last Admin Trade Name Freq PRN Reason Stop Dose Admin Acetaminophen 650 mg 03/11/21 01:18 Acetaminophen 325 Mg Tablet PO Q4H PRN Mild Pain (1-3) or Fever Hydrocodone Bitart/Acetaminophen 1 tab 03/11/21 01:18 03/11/21 21:06 Hydrocodone/Acetaminophen (*Crx) 5-325 Mg Tablet PO 1 tab Q4H PRN Administration Pain Rated 4-6 Dextrose 12.5 gm 03/11/21 05:35 Dextrose 50% 25 Gm/50 Ml Syringe IV PUSH PRN PRN Hypoglycemia Protocol Gabapentin 600 mg 03/12/21 08:00 03/12/21 08:03 Gabapentin 300 Mg Capsule PO 600 mg DAILY@0800,1200 LELE Administration Gabapentin 1,200 mg 03/11/21 17:00 03/11/21 16:37 Gabapentin 400 Mg Capsule PO 1,200 mg DAILY@1700 LELE Administration Glucagon 1 mg 03/11/21 05:35 Glucagon For Inj 1 Mg Vial IM PRN PRN Hypoglycemia Protocol Glucose 15 gm 03/11/21 05:35 Glucose Oral Gel 15 Gm Of Glucse In 37.5 Gm Tube PO PRN PRN Hypoglycemia Protocol Heparin Sodium (Porcine) 5,000 units 03/11/21 21:00 03/12/21 08:03 Heparin Sodium 5,000 Units/Ml Vial SUB-Q 5,000 units Q12HR LELE Administration Sodium Chloride 1,000 mls @ 75 mls/hr 03/11/21 06:00 03/11/21 21:11 Normal Saline Iv IV CONT
[2021-03-12 11:48] LABS: Glucose Point of Care 226 mg/dl (65-105)
[2021-03-12] MEDS: INSULIN ASPART (*BKC) 100 UNITS/ML SUB-Q ×2 (11:55→16:37)
[2021-03-12 12:00] VITALS: BP 118/64; PULSE 93; RESP 14; TEMP 36.4; O2SAT 96
[2021-03-12] MEDS: HYDROcodone/acetaminophen (*CRX) 5-325 MG TABLET 1 TAB PO (12:59)
[2021-03-12] MEDS: SILVERGEL (ELTA) 45 ML 1 APPLIC TOPICAL (14:18)
--- NOTE | 2021-03-12 14:33 | WPDINFPN2 ---
Progress Note: A&P Assessment and Plan (1) Osteomyelitis of ankle or foot, left, acute: Code(s): M86.172 - Other acute osteomyelitis, left ankle and foot Status: Acute Assessment and Plan: I spoke personally with Dr. Solo, and he asked me to see this patient in consultation re: osteomyelitis. IMP Acute OM of L 4th toe and MT and intervening joint REC Ray amputation at a minimum (further resection if any would be decided during the operation). If instead she opts for medical treatment, she will need 6 weeks of her current Imipenem and Vanc, today is #3. I think there is less than 5 % chance that she will achieve cure with medical therapy. We discussed pros and cons of all modes of treatment. If surgery done, oral antibiotic 14 post op. Call if Qs. Subjective Date/time seen: 03/12/21 14:33 Objective Data Vital Signs Vital Signs: Vital Signs - 24 hr 03/11/21 16:00 03/11/21 21:12 03/12/21 01:30 Temperature 36.3 C L 37.1 C 36.6 C Pulse Rate 97 94 87 Respiratory Rate 20 18 14 Blood Pressure 110/62 123/77 120/66 Pulse Oximetry 98 97 99 03/12/21 05:30 03/12/21 08:00 03/12/21 12:00 Temperature 36.4 C 36.2 C L 36.4 C L Pulse Rate 85 92 93 Respiratory Rate 14 14 14 Blood Pressure 122/81 109/66 118/64 Pulse Oximetry 96 95 96 Intake/Output Intake/Output: Intake & Output 03/09/21 03/10/21 03/11/21 03/12/21 23:59 23:59 23:59 23:59 Intake Total 4120 1530 Output Total 1050 800 Balance 3070 730 Meds/Results Medications: Active Medications Generic Name Dose Route Start Last Admin Trade Name Freq PRN Reason Stop Dose Admin Acetaminophen 650 mg 03/11/21 01:18 Acetaminophen 325 Mg Tablet PO Q4H PRN Mild Pain (1-3) or Fever Hydrocodone Bitart/Acetaminophen 1 tab 03/12/21 12:27 03/12/21 12:59 Hydrocodone/Acetaminophen (*Crx) 5-325 Mg Tablet PO 1 tab Q6H PRN Administration Pain Rated 4-10 Dextrose 12.5 gm 03/11/21 05:35 Dextrose 50% 25 Gm/50 Ml Syringe IV PUSH PRN PRN Hypoglycemia Protocol Gabapentin 600 mg 03/12/21 08:00 03/12/21 11:56 Gabapentin 300 Mg Capsule PO 600 mg DAILY@0800,1200 LELE Administration Gabapentin 1,200 mg 03/11/21 17:00 03/11/21 16:37 Gabapentin 400 Mg Capsule PO 1,200 mg DAILY@1700 LELE Administration Glucagon 1 mg 03/11/21 05:35 Glucagon For Inj 1 Mg Vial IM PRN PRN Hypoglycemia Protocol Glucose 15 gm 03/11/21 05:35 Glucose Oral Gel 15 Gm Of Glucse In 37.5 Gm Tube PO PRN PRN Hypoglycemia Protocol Heparin Sodium (Porcine) 5,000 units 03/11/21 21:00 03/12/21 08:03 Heparin Sodium 5,000 Units/Ml Vial SUB-Q 5,000 units Q12HR LELE Administration Sodium Chloride 1,000 mls @ 75 mls/hr 03/11/21 06:00 03/11/21 21:11 Normal Saline Iv IV CONT 75 mls/hr .[id number] LELE Administration Imipenem/Cilastatin Sodium 500 mg in 100 mls @ 300 mls/hr 03/11/21 02:00 03/12/21 08:33 Primaxin 500 Mg/D5w 100 Ml IVPB Infused Q6H LELE Infusion Dextrose 1,000 mls @ 100 mls/hr 03/11/21 05:35 Dextrose 5% 1,000 Ml IVPB PRN PRN Hypoglycemia Protocol Vancomycin HCl 1,750 mg in 500 mls @ 250 mls/hr 03/12/21 12:00 03/12/21 12:58 Vancomycin 1,750 Mg/D5w 500 Ml IVPB 250 mls/hr Q12H LELE Administration Insulin Aspart 7 units 03/11/21 08:00 03/12/21 11:55 Insulin Aspart (*Bkc) 100 Units/Ml SUB-Q 7 units TIDWM LELE Administration Insulin Aspart 3 - 6 units 03/11/21 08:00 03/12/21 11:55 Insulin Aspart (*Bkc) 100 Units/Ml SUB-Q 3 units TIDWM LELE Administration Protocol Insulin Glargine 20 units 03/11/21 05:40 03/12/21 08:03 Insulin Glargine (*Bkc) 100 Units/Ml SUB-Q 20 units DAILY LELE Administration Ondansetron HCl 4 mg 03/11/21 01:18 Ondansetron Inj 4 Mg/2 Ml Vial IV PUSH Q4H PRN Nausea Silver Nitrate 1 applic 03/12/21 09:00 03/12/21 14:18 Silvergel (Elta) 45 Ml TOPICAL 1
[2021-03-12 15:00] VITALS: BMI 39.4
[2021-03-12 16:00] VITALS: BP 122/76; PULSE 93; RESP 14; TEMP 36.4; O2SAT 96
[2021-03-12 16:33] LABS: Glucose Point of Care 237 mg/dl (65-105)
[2021-03-12] MEDS: GABAPENTIN 400 MG CAPSULE 1200 MG PO (16:44)
--- NOTE | 2021-03-12 17:06 | PM.IMPN ---
Progress Note: A&P Assessment and Plan (1) Osteomyelitis of ankle or foot, left, acute: Code(s): M86.172 - Other acute osteomyelitis, left ankle and foot Status: Acute (2) Pathological fracture: Qualifiers: Pathology associated with fracture: unspecified disease Site of pathological fracture: foot Encounter type: initial encounter Laterality: left Qualified Code(s): M84.475A - Pathological fracture, left foot, initial encounter for fracture Code(s): M84.40XA - Pathological fracture, unspecified site, initial encounter for fracture Status: Acute (3) Septic arthritis: Qualifiers: Septic arthritis location: foot Septic arthritis organism: due to unspecified organism Laterality: left Qualified Code(s): M00.9 - Pyogenic arthritis, unspecified Code(s): M00.9 - Pyogenic arthritis, unspecified Status: Acute (4) Leukocytosis: Qualifiers: Leukocytosis type: unspecified Qualified Code(s): D72.829 - Elevated white blood cell count, unspecified Code(s): D72.829 - Elevated white blood cell count, unspecified Status: Acute (5) Hyponatremia: Code(s): E87.1 - Hypo-osmolality and hyponatremia Status: Acute (6) Abnormal urinalysis: Code(s): R82.90 - Unspecified abnormal findings in urine Status: Acute (7) Hypertension: Qualifiers: Hypertension type: unspecified Qualified Code(s): I10 - Essential (primary) hypertension Code(s): I10 - Essential (primary) hypertension Status: Acute (8) Hypercholesterolemia: Code(s): E78.00 - Pure hypercholesterolemia, unspecified Status: Acute (9) Diabetic foot ulcer: Qualifiers: Diabetes mellitus type: type 2 Diabetic foot ulcer location: toe Laterality: left Non-pressure ulcer stage: limited to breakdown of skin Qualified Code(s): E11.621 - Type 2 diabetes mellitus with foot ulcer; L97.521 - Non-pressure chronic ulcer of other part of left foot limited to breakdown of skin Code(s): E11.621 - Type 2 diabetes mellitus with foot ulcer; L97.509 - Non-pressure chronic ulcer of other part of unspecified foot with unspecified severity Status: Acute (10) Cellulitis: Qualifiers: Laterality: left Site of cellulitis: extremity Site of cellulitis of extremity: toe Qualified Code(s): L03.032 - Cellulitis of left toe Code(s): L03.90 - Cellulitis, unspecified Status: Acute (11) Type 2 diabetes mellitus: Qualifiers: Diabetes mellitus intermediate designer insulin use: without nursing home use Diabetes mellitus complication status: with hyperglycemia Qualified Code(s): E11.65 - Type 2 diabetes mellitus with hyperglycemia Code(s): E11.9 - Type 2 diabetes mellitus without complications Status: Acute (12) Abscess of back: Code(s): L02.212 - Cutaneous abscess of back [any part, except buttock] Status: Acute Additional Plan 1. Osteomyelitis of the left fourth proximal phalanx and intervening joint : -patient remaining ulcer noted over the left 4th proximal phalanx probing to the bone -continue on IV vancomycin and imipenem; continue for now -blood cultures sent; Results are pending at the time of the dictation. - Per ID less dense 5% chance of medical cure; however patient wants to pursue this avenue. -given the abscess or the back which has been present for a longer time than the development of this osteomyelitis, we will wait for blood cultures 2. Pathological fracture at the base of left 4th proximal phalanx: -noted in the x-ray -Per surgery: likely need for amputation, pt would like to try conservative mgmt c IV abx and wound care for now 3. Disposition -Continue IV antibiotics. -Decision for 6-week antibiotic prior to discharge to a facility would be required for the duration of the time she would require antibiotics Subjective Date/time seen: 03/12/21 17:06 S: Patient is examined at
--- NOTE | 2021-03-12 17:15 | CONS_ITS ---
DATE OF CONSULTATION: 03/12/2021 REASON FOR CONSULTATION: Osteomyelitis. HISTORY OF PRESENT ILLNESS: 36-year-old female who has had diabetes for some 8 to 10 years. She reports her best A1c in the past has been about 8.0%. She does admit to higher Accu-Cheks recently, but is vague on timing. She has had no previous operations to the toe, knows of no trauma, and knows of no vascular compromise to the left lower extremity. She was admitted through the emergency room 2 days ago with 2 weeks of left 4th toe pain, swelling, redness with subsequent skin breakdown, also 1 week of erythema, pain, swelling over the adjacent aspects of the dorsal foot. She has been given imipenem and vancomycin and consultation requested today. No events here in the hospital. No fever, chills, sweats. No previous treatment for left foot infections. No previous operations. She has known peripheral neuropathy due to her diabetes. She denies any other end-organ complications. ALLERGIES: NONE KNOWN. PRESENT MEDICATIONS: See above. No immunosuppressants, was on clindamycin from her primary physician just before admission, per record. SOCIAL HISTORY: She lives with her parents locally. Does not work. FAMILY HISTORY: Not pertinent to her present illness. PAST MEDICAL HISTORY: Tonsillectomy, psoriasis, no systemic immunosuppressants, hypertension, hyperlipidemia, asthma, morbid obesity. REVIEW OF SYSTEMS: Hyperglycemia. Draining nodule over her back that she is not interested in having examined by me. 14-point review otherwise negative. PHYSICAL EXAMINATION: GENERAL: Young female appears her actual age. No respiratory distress. VITAL SIGNS: On arrival, 37.9, afebrile since. 118/64, 93, 14, 96%. SKIN: No generalized rashes. Warm and dry. EENT: Conjunctivae are normal. The pupils are equal, round, and reactive to light. Extraocular movements are normal. No paranasal sinus inflammation. The oropharynx, oral mucosa normal. Teeth in good repair. NECK: No masses, thyromegaly, tenderness, or meningismus. LUNGS: Clear to auscultation and percussion. CARDIAC: Regular rate and rhythm. No murmurs or gallops. Peripheral pulses are 2+ and equal, dorsalis pedis, popliteals, radials. ABDOMEN: Obese. No masses, tenderness, organomegaly, or distention, and she has normal bowel sounds. No bruits. EXTREMITIES: Right lower extremity is bland. On the left, she has erythema of the 3rd and 5th toes as well as in the distal dorsal lateral foot. She has skin breakdown, erythema, slough over the entire fourth toe. No bone is exposed and no purulence is apparent. She has tenderness over the dorsum of the foot. LAB: A superficial swab from her back wound has Staph aureus to be identified. Blood cultures, no growth so far, 1-1/2 days incubation. White count 11.5 initially, now 9.6; hemoglobin 11.4, platelets are 352. Differential is normal. Chemistry panel normal other than hyperglycemia. Her A1c is 12.4%. CRP 14.8. Liver function tests otherwise normal. RADIOLOGY: Plain films of the foot, osteolysis base of the 4th proximal phalanx, pathologic fracture at the proximal metaphysis, widening of the MTP. No osteolysis present at the 4th metatarsal head, osteoarthritis, spurring, soft tissue edema, no gas, foreign body. ASSESSMENT: 1. Diabetic foot infection with acute osteomyelitis of the left proximal phalanx #4 and also the MTP joint. I suspect she has osteomyelitis of the metatarsal head, despite her plain films. Skin ashanti suspected rather than hematogenous spread from a distant focus of infection. History and exam do not suggest regional infection elsewhere in the foot primarily. However, exam does suggest that she has soft tissue infection proximal to the toe. 2. Fever and leukocyto
[2021-03-12 20:00] VITALS: BP 114/65; PULSE 88; RESP 18; TEMP 36.3; O2SAT 96
[2021-03-12 23:00] LABS: Glucose Point of Care 230 mg/dl (65-105)
[2021-03-13] VITALS: BP 122/73; PULSE 90; RESP 20; TEMP 36.1; O2SAT 96
[2021-03-13 04:00] VITALS: BP 105/67; PULSE 86; RESP 16; TEMP 35.9; O2SAT 94
[2021-03-13 07:49] LABS: Glucose Point of Care 143 mg/dl (65-105)
[2021-03-13 08:00] VITALS: BP 114/75; PULSE 86; RESP 20; TEMP 35.9; O2SAT 97
[2021-03-13 08:01] LABS: Estimated Glomerular Filt Rate > 60
[2021-03-13] MEDS: SILVERGEL (ELTA) 45 ML 1 APPLIC TOPICAL (08:28)
[2021-03-13] MEDS: HEPARIN SODIUM 5,000 UNITS/ML VIAL 5000 UNITS SUB-Q ×2 (08:28→21:06)
[2021-03-13] MEDS: GABAPENTIN 300 MG CAPSULE 600 MG PO ×2 (08:28→12:19)
[2021-03-13] MEDS: INSULIN ASPART (*BKC) 100 UNITS/ML 7 UNITS SUB-Q ×3 (08:29→17:53)
[2021-03-13] MEDS: INSULIN GLARGINE (*BKC) 100 UNITS/ML 20 UNITS SUB-Q (08:29)
--- NOTE | 2021-03-13 08:51 | PM.PNGS ---
Progress Note: A&P Assessment and Plan (1) Osteomyelitis of ankle or foot, left, acute: Code(s): M86.172 - Other acute osteomyelitis, left ankle and foot Status: Acute Assessment and Plan: cont abx and local wound care, appreciate ID consultation, await decision re: surgery vs abx per pt Subjective Subjective Date/Time Seen: 03/13/21 08:51 no acute issues, long d/w pt and she is leaning towards surgery but has not yet made a final decision Review of Systems Review of Systems: All systems reviewed & are unremarkable except as noted in HPI and below Exam Const: General: cooperative and comfortable Resp: Effort & Inspection: normal respiratory effort Auscultation: clear to auscultation bilaterally Cardio: Rate: regular rate Rhythm: regular rhythm GI: Inspection: normal to inspection GI Palp: Yes Soft to palpation and No Tenderness to palpation present (GI) Skin: Other: L foot - dressing C/D/I Objective Data Vital Signs Vital Signs: Vital Signs - 24 hr 03/12/21 12:00 03/12/21 16:00 03/12/21 20:00 Temperature 36.4 C L 36.4 C 36.3 C L Pulse Rate 93 93 88 Respiratory Rate 14 14 18 Blood Pressure 118/64 122/76 114/65 Pulse Oximetry 96 96 96 03/13/21 00:00 03/13/21 04:00 Temperature 36.1 C L 35.9 C L Pulse Rate 90 86 Respiratory Rate 20 16 Blood Pressure 122/73 105/67 Pulse Oximetry 96 94 Intake/Output Intake/Output: Intake & Output 03/10/21 03/11/21 03/12/21 03/13/21 23:59 23:59 23:59 23:59 Intake Total 4120 2470 240 Output Total 1050 2750 Balance 3070 -280 240 Meds/Results Medications: Active Medications Generic Name Dose Route Start Last Admin Trade Name Freq PRN Reason Stop Dose Admin Acetaminophen 650 mg 03/11/21 01:18 Acetaminophen 325 Mg Tablet PO Q4H PRN Mild Pain (1-3) or Fever Hydrocodone Bitart/Acetaminophen 1 tab 03/12/21 12:27 03/12/21 12:59 Hydrocodone/Acetaminophen (*Crx) 5-325 Mg Tablet PO 1 tab Q6H PRN Administration Pain Rated 4-10 Dextrose 12.5 gm 03/11/21 05:35 Dextrose 50% 25 Gm/50 Ml Syringe IV PUSH PRN PRN Hypoglycemia Protocol Gabapentin 600 mg 03/12/21 08:00 03/12/21 11:56 Gabapentin 300 Mg Capsule PO 600 mg DAILY@0800,1200 LELE Administration Gabapentin 1,200 mg 03/11/21 17:00 03/12/21 16:44 Gabapentin 400 Mg Capsule PO 1,200 mg DAILY@1700 LELE Administration Glucagon 1 mg 03/11/21 05:35 Glucagon For Inj 1 Mg Vial IM PRN PRN Hypoglycemia Protocol Glucose 15 gm 03/11/21 05:35 Glucose Oral Gel 15 Gm Of Glucse In 37.5 Gm Tube PO PRN PRN Hypoglycemia Protocol Heparin Sodium (Porcine) 5,000 units 03/11/21 21:00 03/12/21 21:52 Heparin Sodium 5,000 Units/Ml Vial SUB-Q 5,000 units Q12HR LELE Administration Sodium Chloride 1,000 mls @ 75 mls/hr 03/11/21 06:00 03/12/21 15:14 Normal Saline Iv IV CONT 0 mls/hr .[id number] LELE Infusion Imipenem/Cilastatin Sodium 500 mg in 100 mls @ 300 mls/hr 03/11/21 02:00 03/13/21 01:59 Primaxin 500 Mg/D5w 100 Ml IVPB Not Given Q6H LELE Dextrose 1,000 mls @ 100 mls/hr 03/11/21 05:35 Dextrose 5% 1,000 Ml IVPB PRN PRN Hypoglycemia Protocol Vancomycin HCl 1,750 mg in 500 mls @ 250 mls/hr 03/12/21 12:00 03/13/21 00:58 Vancomycin 1,750 Mg/D5w 500 Ml IVPB Not Given Q12H LELE Insulin Aspart 7 units 03/11/21 08:00 03/12/21 16:36 Insulin Aspart (*Bkc) 100 Units/Ml SUB-Q 7 units TIDWM LELE Administration Insulin Aspart 3 - 6 units 03/11/21 08:00 03/13/21 08:23 Insulin Aspart (*Bkc) 100 Units/Ml SUB-Q Not Given TIDWM LELE Protocol Insulin Glargine 20 units 03/11/21 05:40 03/12/21 08:03 Insulin Glargine (*Bkc) 100 Units/Ml SUB-Q 20 units DAILY LELE Administration Ondansetron HCl 4 mg 03/11/21 01:18 Ondansetron Inj 4 Mg/2 Ml Vial IV PUSH Q4H PRN Nausea Silver Nitrate 1 applic 03/12/21 09:00
[2021-03-13] MEDS: HYDROcodone/acetaminophen (*CRX) 5-325 MG TABLET 1 TAB PO ×3 (08:59→23:35)
--- NOTE | 2021-03-13 09:52 | PC.NURSE ---
UNABLE TO HANG FLUIDS OR IMEPENEM THIS MORNING. PT HAS NOT HAD IV ACCESS SINCE YESTERDAY. FAILED ATTEMPTS FROM MULTIPLE NURSES WELL ULTRASOUND. MD NOTIFIED AND WILL TALK WITH PATIENT
[2021-03-13 11:46] LABS: Glucose Point of Care 171 mg/dl (65-105)
[2021-03-13 12:00] VITALS: BP 126/82; PULSE 86; RESP 16; TEMP 36.1; O2SAT 95
--- NOTE | 2021-03-13 12:35 | PM.IMPN ---
Progress Note: A&P Assessment and Plan (1) Osteomyelitis of ankle or foot, left, acute: Code(s): M86.172 - Other acute osteomyelitis, left ankle and foot Status: Acute (2) Pathological fracture: Qualifiers: Pathology associated with fracture: unspecified disease Site of pathological fracture: foot Encounter type: initial encounter Laterality: left Qualified Code(s): M84.475A - Pathological fracture, left foot, initial encounter for fracture Code(s): M84.40XA - Pathological fracture, unspecified site, initial encounter for fracture Status: Acute (3) Septic arthritis: Qualifiers: Septic arthritis location: foot Septic arthritis organism: due to unspecified organism Laterality: left Qualified Code(s): M00.9 - Pyogenic arthritis, unspecified Code(s): M00.9 - Pyogenic arthritis, unspecified Status: Acute (4) Leukocytosis: Qualifiers: Leukocytosis type: unspecified Qualified Code(s): D72.829 - Elevated white blood cell count, unspecified Code(s): D72.829 - Elevated white blood cell count, unspecified Status: Acute Assessment and Plan: Currently improving with a WBC down from 11 0.5-9.6 on 03/12/2021. Continue to monitor. (5) Hyponatremia: Code(s): E87.1 - Hypo-osmolality and hyponatremia Status: Acute Assessment and Plan: Resolved with a sodium of 138 on 03/12/2021. (6) Abnormal urinalysis: Code(s): R82.90 - Unspecified abnormal findings in urine Status: Acute (7) Hypertension: Qualifiers: Hypertension type: unspecified Qualified Code(s): I10 - Essential (primary) hypertension Code(s): I10 - Essential (primary) hypertension Status: Acute Assessment and Plan: Currently blood pressure is stable and go without any antihypertensive. Continue to monitor. (8) Hypercholesterolemia: Code(s): E78.00 - Pure hypercholesterolemia, unspecified Status: Acute (9) Diabetic foot ulcer: Qualifiers: Diabetes mellitus type: type 2 Diabetic foot ulcer location: toe Laterality: left Non-pressure ulcer stage: limited to breakdown of skin Qualified Code(s): E11.621 - Type 2 diabetes mellitus with foot ulcer; L97.521 - Non-pressure chronic ulcer of other part of left foot limited to breakdown of skin Code(s): E11.621 - Type 2 diabetes mellitus with foot ulcer; L97.509 - Non-pressure chronic ulcer of other part of unspecified foot with unspecified severity Status: Acute (10) Cellulitis: Qualifiers: Laterality: left Site of cellulitis: extremity Site of cellulitis of extremity: toe Qualified Code(s): L03.032 - Cellulitis of left toe Code(s): L03.90 - Cellulitis, unspecified Status: Acute Assessment and Plan: Continue imipenem min and vancomycin by ID recommendation. (11) Type 2 diabetes mellitus: Qualifiers: Diabetes mellitus bed bug exterminator insulin use: without m[facility]p use Diabetes mellitus complication status: with hyperglycemia Qualified Code(s): E11.65 - Type 2 diabetes mellitus with hyperglycemia Code(s): E11.9 - Type 2 diabetes mellitus without complications Status: Acute Assessment and Plan: Accu-Cheks are in the 143-171 range . (12) Abscess of back: Code(s): L02.212 - Cutaneous abscess of back [any part, except buttock] Status: Acute Additional Plan 1. Osteomyelitis of the left fourth proximal phalanx and intervening joint : -patient remaining ulcer noted over the left 4th proximal phalanx probing to the bone -continue on IV vancomycin and imipenem; -there is no IV access currently and patient is declining the placement of a PICC line. Consult surgery for a midline placement. -blood cultures sent; Results are pending at the time of the dictation. - Per ID less dense 5% chance of medical cure; however patient wants to pursue this avenue. -wound culture is growing
[2021-03-13] MEDS: ACETAMINOPHEN 325 MG TABLET 650 MG PO (13:59)
[2021-03-13 16:00] VITALS: BP 114/75; PULSE 82; RESP 16; TEMP 35.9; O2SAT 94
[2021-03-13 16:59] LABS: Glucose Point of Care 178 mg/dl (65-105)
[2021-03-13] MEDS: GABAPENTIN 400 MG CAPSULE 1200 MG PO (17:54)
[2021-03-13 20:00] VITALS: BP 143/77; PULSE 96; RESP 16; TEMP 36.5; O2SAT 100
[2021-03-13] MEDS: SODIUM CHLORIDE 0.9% IV 1,000 ML 75 ML IV CONT (21:02)
[2021-03-14] VITALS (8 sets, daily range): BP systolic 102–120; BP diastolic 60–65; PULSE 76–90; RESP 16–17; TEMP 36–36.6; O2SAT 93–99
[2021-03-14 00:15] LABS: Glucose Point of Care 179 mg/dl (65-105)
[2021-03-14 00:55] LABS: Vancomycin Trough < 5.0 ug/mL (10.0-20.0)
--- NOTE | 2021-03-14 03:20 | PC.NURSE ---
Daylight Savings Time For Daylight Savings Time Ending in the Fall - Clocks are moved back. For Daylight Savings Time Beginning in the Spring - Clocks are moved ahead. For [facility], the time of change occurs at 0200 hrs. Time is taken from the process server. This entry on the patient's chart recognizes the change in time reflected during documentation. Example: 2 entries for vital signs may be charted for 0200 hrs.
[2021-03-14 06:47] LABS: Basophils Absolute Auto 0.1 K/mm3 (0.0-0.1); Basophils Percent Auto 0.6 % (0.2-1.2); Eosinophils Absolute Auto 0.3 K/mm3 (0-0.3); Eosinophils Percent Auto 3.9 % (0-4.4); Hematocrit 32.1 % (37.0-47.0); Hemoglobin 10.3 g/dL (12.0-15.0); Immature Granulocyte Absolute 0.03 K/mm3 (0.00-0.031); Immature Granulocyte Percent A 0.4 % (0-0.5); Lymphocytes Absolute Auto 2.51 K/mm3 (0.9-3.2); Mean Corpuscular HGB Conc 32.1 g/dl (32-36); Mean Corpuscular Hemoglobin 26.3 pg (26-34); Mean Corpuscular Volume 82.1 fl (80-100); Mean Platelet Volume 9.7 fl (7.4-10.4); Monocytes Absolute Auto 0.8 K/mm3 (0.1-0.6); Neutrophils Absolute Auto 4.6 K/mm3 (1.3-6.7); Neutrophils Percent Auto 55.1 % (45.5-73.1); Platelet Count Result 369 k/mm3 (150-375); Red Blood Count 3.91 M/mm3 (4.2-5.4); Red Cell Distribution Width 13.5 % (11.5-14.5); White Blood Count 8.4 K/mm3 (4.5-10.0)
[2021-03-14 06:57] LABS: Anion Gap 6 mmol/L (8-16); Blood Urea Nitrogen 12 mg/dL (7-17); Calcium 8.5 mg/dL (8.4-10.2); Carbon Dioxide 28 mmol/L (22-30); Chloride 103 mmol/L (98-107); Estimated Glomerular Filt Rate > 60; Glucose 188 mg/dL (65-110); Potassium 4.1 mmol/L (3.4-5.0); Sodium 137 mmol/L (137-145)
[2021-03-14] MEDS: HYDROcodone/acetaminophen (*CRX) 5-325 MG TABLET 1 TAB PO ×3 (07:51→22:02)
[2021-03-14 08:09] LABS: Glucose Point of Care 165 mg/dl (65-105)
[2021-03-14] MEDS: SILVERGEL (ELTA) 45 ML 1 APPLIC TOPICAL (09:11)
[2021-03-14] MEDS: GABAPENTIN 300 MG CAPSULE 600 MG PO ×2 (09:11→12:05)
[2021-03-14] MEDS: HEPARIN SODIUM 5,000 UNITS/ML VIAL 5000 UNITS SUB-Q ×2 (09:11→21:06)
[2021-03-14] MEDS: INSULIN GLARGINE (*BKC) 100 UNITS/ML 20 UNITS SUB-Q (09:12)
[2021-03-14] MEDS: INSULIN ASPART (*BKC) 100 UNITS/ML 7 UNITS SUB-Q ×3 (09:14→17:43)
--- NOTE | 2021-03-14 09:52 | PM.PNGS ---
Progress Note: A&P Assessment and Plan (1) Osteomyelitis of ankle or foot, left, acute: Code(s): M86.172 - Other acute osteomyelitis, left ankle and foot Status: Acute Assessment and Plan: pt still c no decision re: surgery vs abx, cont conservative management for now (2) Type 2 diabetes mellitus: Qualifiers: Diabetes mellitus long-term insulin use: without equipment operator intermodal yard use Diabetes mellitus complication status: with hyperglycemia Qualified Code(s): E11.65 - Type 2 diabetes mellitus with hyperglycemia Code(s): E11.9 - Type 2 diabetes mellitus without complications Status: Acute Assessment and Plan: better control Subjective Subjective Date/Time Seen: 03/14/21 09:52 feels ok, no acute issues, PICC placed yesterday Review of Systems Review of Systems: All systems reviewed & are unremarkable except as noted in HPI and below Exam Const: General: cooperative, comfortable and no acute distress Resp: Effort & Inspection: normal respiratory effort Auscultation: clear to auscultation bilaterally Cardio: Rate: regular rate Rhythm: regular rhythm GI: Inspection: normal to inspection GI Palp: Yes Soft to palpation and No Tenderness to palpation present (GI) Extrem: Other: LLE - juang C/D/I Objective Data Vital Signs Vital Signs: Vital Signs - 24 hr 03/13/21 12:00 03/13/21 16:00 03/13/21 20:00 Temperature 36.1 C L 35.9 C L 36.5 C Pulse Rate 86 82 96 Respiratory Rate 16 16 16 Blood Pressure 126/82 114/75 143/77 H Pulse Oximetry 95 94 100 03/14/21 00:00 03/14/21 01:52 CDT 03/14/21 04:00 Temperature 36.0 C L 36.2 C L Pulse Rate 76 76 Respiratory Rate 16 16 Blood Pressure 102/64 120/65 Pulse Oximetry 97 93 98 03/14/21 08:00 Temperature 36.3 C L Pulse Rate 84 Respiratory Rate 16 Blood Pressure 118/63 Pulse Oximetry 99 Intake/Output Intake/Output: Intake & Output 03/11/21 03/12/21 03/13/21 03/14/21 23:59 23:59 23:59 22:59 Intake Total 4120 2470 1740 1340 Output Total 1050 2750 652 1200 Balance 3070 -280 1088 140 Meds/Results Medications: Active Medications Generic Name Dose Route Start Last Admin Trade Name Sterlingq PRN Reason Stop Dose Admin Acetaminophen 650 mg 03/11/21 01:18 03/13/21 13:59 Acetaminophen 325 Mg Tablet PO 650 mg Q4H PRN Administration Mild Pain (1-3) or Fever Hydrocodone Bitart/Acetaminophen 1 tab 03/12/21 12:27 03/14/21 07:51 Hydrocodone/Acetaminophen (*Crx) 5-325 Mg Tablet PO 1 tab Q6H PRN Administration Pain Rated 4-10 Dextrose 12.5 gm 03/11/21 05:35 Dextrose 50% 25 Gm/50 Ml Syringe IV PUSH PRN PRN Hypoglycemia Protocol Gabapentin 600 mg 03/12/21 08:00 03/14/21 09:11 Gabapentin 300 Mg Capsule PO 600 mg DAILY@0800,1200 LELE Administration Gabapentin 1,200 mg 03/11/21 17:00 03/13/21 17:54 Gabapentin 400 Mg Capsule PO 1,200 mg DAILY@1700 LELE Administration Glucagon 1 mg 03/11/21 05:35 Glucagon For Inj 1 Mg Vial IM PRN PRN Hypoglycemia Protocol Glucose 15 gm 03/11/21 05:35 Glucose Oral Gel 15 Gm Of Glucse In 37.5 Gm Tube PO PRN PRN Hypoglycemia Protocol Heparin Sodium (Porcine) 5,000 units 03/11/21 21:00 03/14/21 09:11 Heparin Sodium 5,000 Units/Ml Vial SUB-Q 5,000 units Q12HR LELE Administration Sodium Chloride 1,000 mls @ 75 mls/hr 03/11/21 06:00 03/13/21 21:02 Normal Saline Iv IV CONT 75 mls/hr .[id number] LELE Administration Dextrose 1,000 mls @ 100 mls/hr 03/11/21 05:35 Dextrose 5% 1,000 Ml IVPB PRN PRN Hypoglycemia Protocol Vancomycin HCl 1,750 mg in 500 mls @ 250 mls/hr 03/12/21 12:00 03/14/21 02:32 Vancomycin 1,750 Mg/D5w 500 Ml IVPB Infused Q12H LELE Infusion Imipenem/Cilastatin Sodium 500 mg in 100 mls @ 300 mls/hr 03/14/21 03:00 03/14/21 09:12 Primaxin 500 Mg/D5w 100 Ml IVPB 200 mls/hr Q6H LELE Administration Insulin Aspart 7 uni
[2021-03-14 11:52] LABS: Glucose Point of Care 176 mg/dl (65-105)
--- NOTE | 2021-03-14 14:21 | PM.IMPN ---
Progress Note: A&P Assessment and Plan (1) Osteomyelitis of ankle or foot, left, acute: Code(s): M86.172 - Other acute osteomyelitis, left ankle and foot Status: Acute Assessment and Plan: 1. Osteomyelitis of the left fourth proximal phalanx and intervening joint : -patient remaining ulcer noted over the left 4th proximal phalanx probing to the bone -continue on IV vancomycin and imipenem; - PICC line Was placed for continuation of IV antibiotics on 03/13/2021. -blood cultures sent; Results are pending at the time of the dictation. - Per ID less dense 5% chance of medical cure; however patient wants to pursue this avenue. -wound culture is growing MRSA. Patient was already appro (2) Pathological fracture: Qualifiers: Encounter type: initial encounter Laterality: left Pathology associated with fracture: unspecified disease Site of pathological fracture: foot Qualified Code(s): M84.475A - Pathological fracture, left foot, initial encounter for fracture Code(s): M84.40XA - Pathological fracture, unspecified site, initial encounter for fracture Status: Acute (3) Septic arthritis: Qualifiers: Laterality: left Septic arthritis location: foot Septic arthritis organism: due to unspecified organism Qualified Code(s): M00.9 - Pyogenic arthritis, unspecified Code(s): M00.9 - Pyogenic arthritis, unspecified Status: Acute (4) Leukocytosis: Qualifiers: Leukocytosis type: unspecified Qualified Code(s): D72.829 - Elevated white blood cell count, unspecified Code(s): D72.829 - Elevated white blood cell count, unspecified Status: Acute Assessment and Plan: Currently improving with a WBC down from 11 0.5-9.6 on 03/12/2021. Continue to monitor. (5) Hyponatremia: Code(s): E87.1 - Hypo-osmolality and hyponatremia Status: Acute Assessment and Plan: Resolved with a sodium of 138 on 03/12/2021. (6) Abnormal urinalysis: Code(s): R82.90 - Unspecified abnormal findings in urine Status: Acute (7) Hypertension: Qualifiers: Hypertension type: unspecified Qualified Code(s): I10 - Essential (primary) hypertension Code(s): I10 - Essential (primary) hypertension Status: Acute Assessment and Plan: Currently blood pressure is stable and go without any antihypertensive. Continue to monitor. (8) Hypercholesterolemia: Code(s): E78.00 - Pure hypercholesterolemia, unspecified Status: Acute (9) Diabetic foot ulcer: Qualifiers: Diabetes mellitus type: type 2 Diabetic foot ulcer location: toe Laterality: left Non-pressure ulcer stage: limited to breakdown of skin Qualified Code(s): E11.621 - Type 2 diabetes mellitus with foot ulcer; L97.521 - Non-pressure chronic ulcer of other part of left foot limited to breakdown of skin Code(s): E11.621 - Type 2 diabetes mellitus with foot ulcer; L97.509 - Non-pressure chronic ulcer of other part of unspecified foot with unspecified severity Status: Acute (10) Cellulitis: Qualifiers: Laterality: left Site of cellulitis: extremity Site of cellulitis of extremity: toe Qualified Code(s): L03.032 - Cellulitis of left toe Code(s): L03.90 - Cellulitis, unspecified Status: Acute Assessment and Plan: Continue imipenem min and vancomycin by ID recommendation. (11) Type 2 diabetes mellitus: Qualifiers: Diabetes mellitus complication status: with hyperglycemia Diabetes mellitus care home insulin use: without care home use Qualified Code(s): E11.65 - Type 2 diabetes mellitus with hyperglycemia Code(s): E11.9 - Type 2 diabetes mellitus without complications Status: Acute Assessment and Plan: Accu-Cheks are in the 143-171 range . (12) Abscess of back: Code(s): L02.212 - Cutaneous abscess of back [any part, except buttock] Status: Acute Additional
[2021-03-14] MEDS: SODIUM CHLORIDE 0.9% IV 1,000 ML 75 ML IV CONT (15:11)
[2021-03-14 16:37] LABS: Glucose Point of Care 202 mg/dl (65-105)
[2021-03-14] MEDS: GABAPENTIN 400 MG CAPSULE 1200 MG PO (17:42)
[2021-03-14] MEDS: INSULIN ASPART (*BKC) 100 UNITS/ML SUB-Q (17:43)
[2021-03-14 22:19] LABS: Glucose Point of Care 128 mg/dl (65-105)
[2021-03-15] VITALS (8 sets, daily range): BP systolic 100–119; BP diastolic 54–76; PULSE 52–94; RESP 14–18; TEMP 35.8–36.6; O2SAT 95–100
[2021-03-15 06:35] LABS: Basophils Percent Auto 0.5 % (0.2-1.2); Eosinophils Absolute Auto 0.4 K/mm3 (0-0.3); Eosinophils Percent Auto 4.7 % (0-4.4); Hematocrit 32.3 % (37.0-47.0); Hemoglobin 10.2 g/dL (12.0-15.0); Immature Granulocyte Absolute 0.03 K/mm3 (0.00-0.031); Immature Granulocyte Percent A 0.4 % (0-0.5); Lymphocytes Absolute Auto 2.61 K/mm3 (0.9-3.2); Lymphocytes Percent Auto 34.8 % (18.3-44.2); Mean Corpuscular HGB Conc 31.6 g/dl (32-36); Mean Corpuscular Hemoglobin 26.5 pg (26-34); Mean Corpuscular Volume 83.9 fl (80-100); Mean Platelet Volume 9.4 fl (7.4-10.4); Monocytes Absolute Auto 0.9 K/mm3 (0.1-0.6); Monocytes Percent Auto 11.3 % (2.6-8.5); Neutrophils Absolute Auto 3.6 K/mm3 (1.3-6.7); Neutrophils Percent Auto 48.3 % (45.5-73.1); Platelet Count Result 376 k/mm3 (150-375); Red Blood Count 3.85 M/mm3 (4.2-5.4); Red Cell Distribution Width 13.7 % (11.5-14.5); White Blood Count 7.5 K/mm3 (4.5-10.0)
[2021-03-15 06:45] LABS: Anion Gap 6 mmol/L (8-16); Blood Urea Nitrogen 9 mg/dL (7-17); Calcium 8.4 mg/dL (8.4-10.2); Carbon Dioxide 27 mmol/L (22-30); Chloride 105 mmol/L (98-107); Estimated Glomerular Filt Rate > 60; Glucose 167 mg/dL (65-110); Potassium 3.9 mmol/L (3.4-5.0); Sodium 138 mmol/L (137-145)
--- NOTE | 2021-03-15 06:48 | PM.IMPN ---
Progress Note: A&P Assessment and Plan (1) Osteomyelitis of ankle or foot, left, acute: Code(s): M86.172 - Other acute osteomyelitis, left ankle and foot Status: Acute Assessment and Plan: 1. Osteomyelitis of the left fourth proximal phalanx and intervening joint : -patient remaining ulcer noted over the left 4th proximal phalanx probing to the bone -continue on IV vancomycin and imipenem; - PICC line Was placed for continuation of IV antibiotics on 03/13/2021. -blood cultures sent; Results are pending at the time of the dictation. - Per ID less dense 5% chance of medical cure; however patient wants to pursue this avenue. -wound culture is growing MRSA. (2) Pathological fracture: Qualifiers: Pathology associated with fracture: unspecified disease Site of pathological fracture: foot Encounter type: initial encounter Laterality: left Qualified Code(s): M84.475A - Pathological fracture, left foot, initial encounter for fracture Code(s): M84.40XA - Pathological fracture, unspecified site, initial encounter for fracture Status: Acute (3) Septic arthritis: Qualifiers: Septic arthritis location: foot Septic arthritis organism: due to unspecified organism Laterality: left Qualified Code(s): M00.9 - Pyogenic arthritis, unspecified Code(s): M00.9 - Pyogenic arthritis, unspecified Status: Acute (4) Leukocytosis: Qualifiers: Leukocytosis type: unspecified Qualified Code(s): D72.829 - Elevated white blood cell count, unspecified Code(s): D72.829 - Elevated white blood cell count, unspecified Status: Acute Assessment and Plan: Resolved. (5) Hyponatremia: Code(s): E87.1 - Hypo-osmolality and hyponatremia Status: Acute Assessment and Plan: Resolved with a sodium of 138 on 03/12/2021. (6) Abnormal urinalysis: Code(s): R82.90 - Unspecified abnormal findings in urine Status: Acute (7) Hypertension: Qualifiers: Hypertension type: unspecified Qualified Code(s): I10 - Essential (primary) hypertension Code(s): I10 - Essential (primary) hypertension Status: Acute Assessment and Plan: Currently blood pressure is stable and go without any antihypertensive. Continue to monitor. (8) Hypercholesterolemia: Code(s): E78.00 - Pure hypercholesterolemia, unspecified Status: Acute (9) Diabetic foot ulcer: Qualifiers: Diabetes mellitus type: type 2 Diabetic foot ulcer location: toe Laterality: left Non-pressure ulcer stage: limited to breakdown of skin Qualified Code(s): E11.621 - Type 2 diabetes mellitus with foot ulcer; L97.521 - Non-pressure chronic ulcer of other part of left foot limited to breakdown of skin Code(s): E11.621 - Type 2 diabetes mellitus with foot ulcer; L97.509 - Non-pressure chronic ulcer of other part of unspecified foot with unspecified severity Status: Acute (10) Cellulitis: Qualifiers: Laterality: left Site of cellulitis: extremity Site of cellulitis of extremity: toe Qualified Code(s): L03.032 - Cellulitis of left toe Code(s): L03.90 - Cellulitis, unspecified Status: Acute Assessment and Plan: Continue imipenem min and vancomycin by ID recommendation. (11) Type 2 diabetes mellitus: Qualifiers: Diabetes mellitus termite exterminator helper insulin use: without group home use Diabetes mellitus complication status: with hyperglycemia Qualified Code(s): E11.65 - Type 2 diabetes mellitus with hyperglycemia Code(s): E11.9 - Type 2 diabetes mellitus without complications Status: Acute Assessment and Plan: Fasting blood sugar is 167. Accu-Cheks are in the 138-152 range . (12) Abscess of back: Code(s): L02.212 - Cutaneous abscess of back [any part, except buttock] Status: Acute Additional Plan priately started on vancomycin. 2. Pathological fracture at th
[2021-03-15] MEDS: HYDROcodone/acetaminophen (*CRX) 5-325 MG TABLET 1 TAB PO ×3 (06:55→23:09)
[2021-03-15 07:41] LABS: Glucose Point of Care 138 mg/dl (65-105)
[2021-03-15] MEDS: HEPARIN SODIUM 5,000 UNITS/ML VIAL 5000 UNITS SUB-Q ×2 (08:20→22:06)
[2021-03-15] MEDS: INSULIN ASPART (*BKC) 100 UNITS/ML 7 UNITS SUB-Q ×3 (08:21→16:50)
[2021-03-15] MEDS: GABAPENTIN 300 MG CAPSULE 600 MG PO ×2 (08:21→12:04)
[2021-03-15] MEDS: INSULIN GLARGINE (*BKC) 100 UNITS/ML 20 UNITS SUB-Q (08:22)
[2021-03-15] MEDS: CENTRAL LINE FLUSH 20 ML IV PUSH (11:14)
[2021-03-15 11:53] LABS: Glucose Point of Care 152 mg/dl (65-105)
[2021-03-15 13:48] LABS: Vancomycin Trough 12.7 ug/mL (10.0-20.0)
[2021-03-15] MEDS: SILVERGEL (ELTA) 45 ML 1 APPLIC TOPICAL (13:57)
[2021-03-15] MEDS: CENTRAL LINE FLUSH 10 ML IV PUSH ×2 (14:09→22:07)
--- NOTE | 2021-03-15 15:38 | PM.PNGS ---
Progress Note: A&P Assessment and Plan (1) Osteomyelitis of ankle or foot, left, acute: Code(s): M86.172 - Other acute osteomyelitis, left ankle and foot Status: Acute Assessment and Plan: Patient decided to choose non-surgical treatment and to continue with long-term course of IV antibiotics (ID rec 6 weeks) with close outpatient follow-up. She knows the potential risks and complications that can arise with this treatment option. I discussed this with her again today, and we talked about worsening infection that extends proximally that could require more extensive amputation. She understands the risks. Okay from our standpoint to discharge when okay with other services. Continue local wound care. IV abx per ID. I have asked the wound care nurses to set up an appointment for her to follow-up with Dr. Solo in the wound clinic in 1-2 weeks as an outpatient. I discussed with the patient reasons to call sooner. (2) Type 2 diabetes mellitus: Qualifiers: Diabetes mellitus manager intermediate insulin use: without senior living use Diabetes mellitus complication status: with hyperglycemia Qualified Code(s): E11.65 - Type 2 diabetes mellitus with hyperglycemia Code(s): E11.9 - Type 2 diabetes mellitus without complications Status: Acute Assessment and Plan: Management per primary service. We spoke about the need for tight glycemic control even once discharged to help avoid complications with healing or infections. Additional Plan I have discussed the patient's case and plan of care with Dr. Solo. Subjective Subjective Date/Time Seen: 03/15/21 13:38 Patient reports: no new complaints, feels better and afebrile Interval history: This is a 36 yo obese diabetic female who was admitted with osteomyelitis of the left 4th phalanx and possibly metatarsal head, surrounding soft tissue infection, back abscess, and hyperglycemia. She was started on broad-spectrum IV antibiotics. ID was consulted and has narrowed this. Our service has seen the patient for surgical evaluation of the osteomyelitis and diabetic left foot infection. Chart reviewed. The patient is seen on the medical floor with her boyfriend at the bedside. She reports feeling well today. She has had multiple conversations with Dr. Solo, the Hospitalist, and ID regarding treatment options. She had a PICC line placed over the weekend due to lack of peripheral IV access. She would like to continue with a long-term IV abx course rather than proceeding with surgical intervention. She has no further questions today. No specific complaints. Her left foot dressing was recently changed and wrapped shortly before I entered the room. Review of Systems Review of Systems: All systems reviewed & are unremarkable except as noted in HPI and below Exam Const: General: comfortable, no acute distress, alert and awake Orientation/consciousness: patient oriented x3 Extrem: Right upper extremity: Extremity exam: right hand (slight edema reportedly from IV infiltration) other (Right PICC in place, drsg clean and dry) Left upper extremity: elbow/forearm (bruising noted reportedly from previous IV attempts) Right lower extremity: normal to inspection Left lower extremity: lower leg Details: other (1-2+ edema noted to lower leg) Other: LLE - drsg C/D/I Psych: Appearance: grossly normal Insight: Good insight present (Psych) Judgement: Good judgement present (Psych) Objective Data Vital Signs Vital Signs: Vital Signs - 24 hr 03/14/21 16:00 03/14/21 19:56 03/14/21 23:16 Temperature 98 F 98 F Pulse Rate 83 86 Respiratory Rate 16 17 Blood Pressure 112/60 104/60 Pulse Oximetry 96 98 95 03/15/21 00:00 03/15/21 03:28 03/15/21 10:08 Temperature 97 F L 96.5 F L 96.9 F L Pulse Rate 52 L 83 85 Respiratory Rate 17 18 16 Blood Pressure 102/76 100/54 L 102/62 Pulse Oximetry 99 96 95 03/15/21 15:00 Temperature 97.6 F Pulse Rate 78 Respiratory Rate 14 Blood Pre
[2021-03-15] MEDS: INSULIN ASPART (*BKC) 100 UNITS/ML SUB-Q (16:50)
[2021-03-15] MEDS: GABAPENTIN 400 MG CAPSULE 1200 MG PO (16:53)
[2021-03-15 17:05] LABS: Glucose Point of Care 256 mg/dl (65-105)
[2021-03-15 22:20] LABS: Glucose Point of Care 185 mg/dl (65-105)
[2021-03-16 03:52] VITALS: BP 110/72; PULSE 76; RESP 16; TEMP 36.6; O2SAT 98
[2021-03-16] MEDS: CENTRAL LINE FLUSH 10 ML IV PUSH ×3 (06:13→21:01)
[2021-03-16] MEDS: HYDROcodone/acetaminophen (*CRX) 5-325 MG TABLET 1 TAB PO ×3 (07:05→21:00)
--- NOTE | 2021-03-16 07:11 | P.DS_ITS ---
DS: Summary Time Spent with Patient Time attestation: Total time spent providing and/or coordinating discharge ser vices: DS: Data Data Completed and Pending Labs on day of discharge: Labs from last 24 hours 03/15/21 03/15/21 03/15/21 22:10 16:41 11:41 POC Capillary Glucose 185 H 256 H 152 H Vancomycin Trough 03/15/21 03/15/21 11:13 07:31 POC Capillary Glucose 138 H Vancomycin Trough 12.7 Preliminary micro results at discharge 03/11/21 01:05 Blood Culture - Preliminary Blood 03/11/21 00:24 Blood Culture - Preliminary Blood Discharge Plan Discharge Attending physician on discharge: Mila Hernandez Consulting providers: Lilian Solo Discharging Clinician: Mila Hernandez Anticipated Discharge Date/Time: 03/16/21 11:00 Activity: september shower Diet: diabetic Wound Care Instructions: other - see discharge instructions Discharge Instructions: Daily apply silver gel to open wound on the left foot, cover with dry gauze dressing. Follow up with Dr Lilian Solo on April 06 at 1:00 pm at [facility] wound center. arrive 30 minutes early to register before appointment. register at [facility] Lab/registration area. After registration proceed to the wound center on the 2nd floor. Patient Language: Ukrainian Follow-up/Referrals: Lisa Vieira APRN [Advanced Practice Nurse] - 2 Weeks Lilian Solo MD [Physician] - 04/06/21 1:00 pm (arrive 30 minutes early to register, appointment is at the [facility] wound center.) Darin,Alissa Monson MD [Primary Care Provider] - 1 Week Discharge Medications: No Action metformin 500 mg tablet 1,000 mg PO BID RF: 0 gabapentin 600 mg tablet 600 mg PO BID RF: 0 gabapentin 600 mg tablet 1,200 mg PO DAILY@1700 RF: 0 clindamycin HCl 300 mg capsule 300 mg PO BID RF: 0 Other Ambulatory Orders: Complete Blood Count no Diff (DAILY) Timeframe: [id number] Location: Determined by Patient Ordered By: Mila Hernandez CRP (Routine) Timeframe: 1 Week Location: Determined by Patient Ordered By: Mila Hernandez Erythrocyte Sedimentation Rate (Routine) Timeframe: 1 Week Location: Determined by Patient Ordered By: Mila Hernandez Date of admission: 03/11/21 01:18 Primary Care Provider: DarinAlissa Admitting Provider: Julien Snowden Attending physician on admission: Michelle Sotelo Condition: Stable Quality VTE Prophylaxis VTE prophylaxis: pharmacologic ordered
[2021-03-16 07:19] LABS: Basophils Percent Auto 0.4 % (0.2-1.2); Eosinophils Absolute Auto 0.4 K/mm3 (0-0.3); Eosinophils Percent Auto 5.8 % (0-4.4); Hematocrit 33.9 % (37.0-47.0); Hemoglobin 10.8 g/dL (12.0-15.0); Immature Granulocyte Absolute 0.04 K/mm3 (0.00-0.031); Immature Granulocyte Percent A 0.6 % (0-0.5); Lymphocytes Absolute Auto 2.52 K/mm3 (0.9-3.2); Lymphocytes Percent Auto 36.4 % (18.3-44.2); Mean Corpuscular HGB Conc 31.9 g/dl (32-36); Mean Corpuscular Hemoglobin 26.7 pg (26-34); Mean Corpuscular Volume 83.9 fl (80-100); Mean Platelet Volume 9.7 fl (7.4-10.4); Monocytes Absolute Auto 0.8 K/mm3 (0.1-0.6); Monocytes Percent Auto 11.3 % (2.6-8.5); Neutrophils Absolute Auto 3.2 K/mm3 (1.3-6.7); Neutrophils Percent Auto 45.5 % (45.5-73.1); Platelet Count Result 387 k/mm3 (150-375); Red Blood Count 4.04 M/mm3 (4.2-5.4); Red Cell Distribution Width 13.6 % (11.5-14.5); White Blood Count 6.9 K/mm3 (4.5-10.0)
[2021-03-16 07:34] LABS: Anion Gap 6 mmol/L (8-16); Blood Urea Nitrogen 8 mg/dL (7-17); Calcium 8.8 mg/dL (8.4-10.2); Carbon Dioxide 29 mmol/L (22-30); Chloride 103 mmol/L (98-107); Estimated Glomerular Filt Rate > 60; Glucose 167 mg/dL (65-110); Potassium 3.8 mmol/L (3.4-5.0); Sodium 138 mmol/L (137-145)
[2021-03-16 07:47] LABS: Glucose Point of Care 144 mg/dl (65-105)
[2021-03-16] MEDS: INSULIN GLARGINE (*BKC) 100 UNITS/ML 20 UNITS SUB-Q (08:47)
[2021-03-16] MEDS: GABAPENTIN 300 MG CAPSULE 600 MG PO ×2 (08:47→12:28)
[2021-03-16] MEDS: INSULIN ASPART (*BKC) 100 UNITS/ML 7 UNITS SUB-Q ×3 (08:48→16:33)
[2021-03-16] MEDS: HEPARIN SODIUM 5,000 UNITS/ML VIAL 5000 UNITS SUB-Q ×2 (08:49→20:53)
[2021-03-16 10:00] VITALS: BP 100/64; PULSE 87; RESP 16; TEMP 35.5; O2SAT 95
--- NOTE | 2021-03-16 11:27 | PC.NURSE ---
On 03/16/21, the student, [ Sherri Cm], provided care and completed [facility] documentation on this patient. I have reviewed the student's documentation and agree with the findings.
--- NOTE | 2021-03-16 11:37 | PM.PNGS ---
Progress Note: A&P Assessment and Plan (1) Osteomyelitis of ankle or foot, left, acute: Code(s): M86.172 - Other acute osteomyelitis, left ankle and foot Status: Acute Assessment and Plan: Patient decided to choose non-surgical treatment and to continue with long-term course of IV antibiotics (ID rec 6 weeks) with close outpatient follow-up. She knows the potential risks and complications that can arise with this treatment option, has had multiple discussions with multiple providers involved. Working on disposition for discharge. She has been accepted with [facility], but does not currently have a provider who will follow her IV antibiotics as an outpatient. PCP and ID unable to manage these IV abx per CC. Patient is going to call her insurance and see what possible PCPs would accept her insurance and call to see if any other primary care provider would follow her abx and be able to get her in within a week after discharge. If this is not possible, she may also need to consider a SNF if unable to find a provider to follow her IV abx. I have discussed this with the patient. Will continue to work on discharge planning. (2) Type 2 diabetes mellitus: Qualifiers: Diabetes mellitus terminal press operator insulin use: without terminal press operator use Diabetes mellitus complication status: with hyperglycemia Qualified Code(s): E11.65 - Type 2 diabetes mellitus with hyperglycemia Code(s): E11.9 - Type 2 diabetes mellitus without complications Status: Acute Additional Plan I have discussed the patient's case and plan of care with Dr. Solo. Subjective Subjective Date/Time Seen: 03/16/21 11:37 Patient reports: no new complaints and afebrile Interval history: The patient has no complaints this morning. She has had no acute events overnight. Spoke with the nurse and care coordination this morning. There is an issue with who can follow her IV antibiotics with [facility] after discharge. ID is not able to follow. Her PCP will not follow/manage the IV abx. Review of Systems Review of Systems: All systems reviewed & are unremarkable except as noted in HPI and below Exam Const: General: comfortable, no acute distress, alert and awake Nutritional Appearance: obese Orientation/consciousness: patient oriented x3 Extrem: General: full ROM Right upper extremity: Extremity exam: right hand (slight edema reportedly from IV infiltration) other (Right PICC in place, drsg clean and dry) Left upper extremity: elbow/forearm (bruising noted reportedly from previous IV attempts) Right lower extremity: normal to inspection Left lower extremity: lower leg Details: other (1-2+ edema noted to lower leg) Other: LLE - drsg C/D/I Psych: Appearance: grossly normal Insight: Good insight present (Psych) Judgement: Good judgement present (Psych) Objective Data Vital Signs Vital Signs: Vital Signs - 24 hr 03/15/21 15:00 03/15/21 18:10 03/15/21 19:50 Temperature 97.6 F 97.9 F 96.8 F L Pulse Rate 78 87 94 Respiratory Rate 14 16 18 Blood Pressure 112/64 119/69 114/66 Pulse Oximetry 98 100 97 03/15/21 22:49 03/15/21 23:19 03/16/21 03:52 Temperature 96.8 F L 98 F Pulse Rate 87 76 Respiratory Rate 17 16 Blood Pressure 115/69 110/72 Pulse Oximetry 95 98 98 03/16/21 10:00 Temperature 96 F L Pulse Rate 87 Respiratory Rate 16 Blood Pressure 100/64 Pulse Oximetry 95 Intake/Output Intake/Output: Intake & Output 03/14/21 03/14/21 03/15/21 03/16/21 00:59 23:59 23:59 23:59 Intake Total 5610 1840 Output Total 5700 1800 Balance -90 40 Meds/Results Medications: Active Medications Generic Name Dose Route Start Last Admin Trade Name Freq PRN Reason Stop Dose Admin Acetaminophen 650 mg 03/11/21 01:18 03/13/21 13:59 Acetaminophen 325 Mg Tablet PO 650 mg Q4H PRN Administration Mild Pain (1-3) or Fever Hydrocodone Bitart/Acetaminophen 1 tab 03/12/21 12:27 03/16/21 07:05 Hydrocodone/Acet
[2021-03-16 11:53] LABS: Glucose Point of Care 170 mg/dl (65-105)
--- NOTE | 2021-03-16 12:06 | PM.IMPN ---
Progress Note: A&P Assessment and Plan (1) Osteomyelitis of ankle or foot, left, acute: Code(s): M86.172 - Other acute osteomyelitis, left ankle and foot Status: Acute Assessment and Plan: 1. Osteomyelitis of the left fourth proximal phalanx and intervening joint : -patient remaining ulcer noted over the left 4th proximal phalanx probing to the bone -continue on IV vancomycin and imipenem; - PICC line was placed for continuation of IV antibiotics on 03/13/2021. -blood cultures sent; Results are pending at the time of the dictation. - Per ID less dense 5% chance of medical cure; however patient wants to pursue this avenue. -wound culture is growing MRSA. -primary care to monitor IV antibiotics as an outpatient. Plan for discharge as soon as insurance coverage is verified. (2) Pathological fracture: Qualifiers: Pathology associated with fracture: unspecified disease Site of pathological fracture: foot Encounter type: initial encounter Laterality: left Qualified Code(s): M84.475A - Pathological fracture, left foot, initial encounter for fracture Code(s): M84.40XA - Pathological fracture, unspecified site, initial encounter for fracture Status: Acute Assessment and Plan: Continue pain management. Currently on IV antibiotics. Patient instructed to follow-up with surgery if there is any deterioration for immediate amputation. Continue IV antibiotics for 6-weeks. (3) Septic arthritis: Qualifiers: Septic arthritis location: foot Septic arthritis organism: due to unspecified organism Laterality: left Qualified Code(s): M00.9 - Pyogenic arthritis, unspecified Code(s): M00.9 - Pyogenic arthritis, unspecified Status: Acute Assessment and Plan: Pathological fracture at the base of left 4th proximal phalanx: -noted in the x-ray -Per surgery: Requires amputation, pt would like to try conservative mgmt c IV abx and wound care for now (4) Leukocytosis: Qualifiers: Leukocytosis type: unspecified Qualified Code(s): D72.829 - Elevated white blood cell count, unspecified Code(s): D72.829 - Elevated white blood cell count, unspecified Status: Acute Assessment and Plan: Resolved. (5) Hyponatremia: Code(s): E87.1 - Hypo-osmolality and hyponatremia Status: Acute Assessment and Plan: Resolved with a sodium of 138 on 03/12/2021. (6) Abnormal urinalysis: Code(s): R82.90 - Unspecified abnormal findings in urine Status: Acute (7) Hypertension: Qualifiers: Hypertension type: unspecified Qualified Code(s): I10 - Essential (primary) hypertension Code(s): I10 - Essential (primary) hypertension Status: Acute Assessment and Plan: Currently blood pressure is stable and go without any antihypertensive. Continue to monitor. (8) Hypercholesterolemia: Code(s): E78.00 - Pure hypercholesterolemia, unspecified Status: Acute (9) Diabetic foot ulcer: Qualifiers: Diabetes mellitus type: type 2 Diabetic foot ulcer location: toe Laterality: left Non-pressure ulcer stage: limited to breakdown of skin Qualified Code(s): E11.621 - Type 2 diabetes mellitus with foot ulcer; L97.521 - Non-pressure chronic ulcer of other part of left foot limited to breakdown of skin Code(s): E11.621 - Type 2 diabetes mellitus with foot ulcer; L97.509 - Non-pressure chronic ulcer of other part of unspecified foot with unspecified severity Status: Acute (10) Cellulitis: Qualifiers: Laterality: left Site of cellulitis: extremity Site of cellulitis of extremity: toe Qualified Code(s): L03.032 - Cellulitis of left toe Code(s): L03.90 - Cellulitis, unspecified Status: Acute Assessment and Plan: Continue imipenem min and vancomycin by ID recommendation. (11) Type 2 diabetes mellitus: Qualifiers: Diabetes mellitus long
[2021-03-16 14:10] VITALS: BP 131/80; PULSE 86; RESP 18; TEMP 36.5; O2SAT 100
[2021-03-16] MEDS: SILVERGEL (ELTA) 45 ML 1 APPLIC TOPICAL (16:29)
[2021-03-16] MEDS: INSULIN ASPART (*BKC) 100 UNITS/ML SUB-Q (16:33)
[2021-03-16] MEDS: GABAPENTIN 400 MG CAPSULE 1200 MG PO (16:33)
[2021-03-16 16:36] LABS: Glucose Point of Care 232 mg/dl (65-105)
[2021-03-16 18:25] VITALS: BP 127/75; PULSE 92; RESP 18; TEMP 36.2; O2SAT 97
[2021-03-16 20:50] VITALS: BP 109/65; PULSE 84; RESP 14; TEMP 36.7; O2SAT 96
[2021-03-16 21:39] LABS: Glucose Point of Care 170 mg/dl (65-105)
[2021-03-17 00:02] VITALS: BP 107/58; PULSE 83; RESP 14; TEMP 36.5; O2SAT 95
[2021-03-17 01:51] LABS: Vancomycin Trough 18.6 ug/mL (10.0-20.0)
[2021-03-17 05:08] VITALS: BP 102/54; PULSE 80; RESP 14; TEMP 36.7; O2SAT 94
[2021-03-17 06:31] LABS: Basophils Absolute Auto 0.1 K/mm3 (0.0-0.1); Basophils Percent Auto 0.7 % (0.2-1.2); Eosinophils Absolute Auto 0.4 K/mm3 (0-0.3); Eosinophils Percent Auto 5.1 % (0-4.4); Hematocrit 32.7 % (37.0-47.0); Hemoglobin 10.4 g/dL (12.0-15.0); Immature Granulocyte Absolute 0.05 K/mm3 (0.00-0.031); Immature Granulocyte Percent A 0.7 % (0-0.5); Lymphocytes Absolute Auto 2.56 K/mm3 (0.9-3.2); Lymphocytes Percent Auto 34.6 % (18.3-44.2); Mean Corpuscular HGB Conc 31.8 g/dl (32-36); Mean Corpuscular Hemoglobin 26.3 pg (26-34); Mean Corpuscular Volume 82.8 fl (80-100); Mean Platelet Volume 9.8 fl (7.4-10.4); Monocytes Absolute Auto 0.8 K/mm3 (0.1-0.6); Monocytes Percent Auto 11.1 % (2.6-8.5); Neutrophils Absolute Auto 3.5 K/mm3 (1.3-6.7); Neutrophils Percent Auto 47.8 % (45.5-73.1); Platelet Count Result 341 k/mm3 (150-375); Red Blood Count 3.95 M/mm3 (4.2-5.4); Red Cell Distribution Width 13.7 % (11.5-14.5); White Blood Count 7.4 K/mm3 (4.5-10.0)
[2021-03-17 06:47] LABS: Anion Gap 6 mmol/L (8-16); Blood Urea Nitrogen 10 mg/dL (7-17); Calcium 8.7 mg/dL (8.4-10.2); Carbon Dioxide 28 mmol/L (22-30); Chloride 102 mmol/L (98-107); Estimated Glomerular Filt Rate > 60; Glucose 214 mg/dL (65-110); Potassium 4.1 mmol/L (3.4-5.0); Sodium 136 mmol/L (137-145)
[2021-03-17] MEDS: CENTRAL LINE FLUSH 10 ML IV PUSH ×3 (06:52→21:18)
--- NOTE | 2021-03-17 07:22 | PM.IMPN ---
Progress Note: A&P Assessment and Plan (1) Osteomyelitis of ankle or foot, left, acute: Code(s): M86.172 - Other acute osteomyelitis, left ankle and foot Status: Acute Assessment and Plan: 1. Osteomyelitis of the left fourth proximal phalanx and intervening joint : -patient presenting with an ulcer noted over the left 4th proximal phalanx probing to the bone -continue on IV vancomycin and imipenem; - PICC line was placed for continuation of IV antibiotics on 03/13/2021. -blood cultures sent; Results are pending at the time of the dictation. - Per ID less dense 5% chance of medical cure; however patient wants to pursue this avenue. -wound culture is growing MRSA. -primary care to monitor IV antibiotics as an outpatient. Plan for discharge as soon as insurance coverage is verified. (2) Pathological fracture: Qualifiers: Pathology associated with fracture: unspecified disease Site of pathological fracture: foot Encounter type: initial encounter Laterality: left Qualified Code(s): M84.475A - Pathological fracture, left foot, initial encounter for fracture Code(s): M84.40XA - Pathological fracture, unspecified site, initial encounter for fracture Status: Acute Assessment and Plan: Continue pain management. Currently on IV antibiotics. Patient instructed to follow-up with surgery if there is any deterioration for immediate amputation. Patient was educated about the risk inherent to delaying her surgery, including higher level of amputation. She still wants to explore a conservative management. Continue IV antibiotics for 6-weeks. (3) Septic arthritis: Qualifiers: Septic arthritis location: foot Septic arthritis organism: due to unspecified organism Laterality: left Qualified Code(s): M00.9 - Pyogenic arthritis, unspecified Code(s): M00.9 - Pyogenic arthritis, unspecified Status: Acute Assessment and Plan: Pathological fracture at the base of left 4th proximal phalanx: -noted in the x-ray -Per surgery: Requires amputation, pt would like to try conservative mgmt c IV abx and wound care for now (4) Leukocytosis: Qualifiers: Leukocytosis type: unspecified Qualified Code(s): D72.829 - Elevated white blood cell count, unspecified Code(s): D72.829 - Elevated white blood cell count, unspecified Status: Acute Assessment and Plan: Resolved. (5) Hyponatremia: Code(s): E87.1 - Hypo-osmolality and hyponatremia Status: Acute Assessment and Plan: Resolved with a sodium of 136 on 03/12/2021. (6) Abnormal urinalysis: Code(s): R82.90 - Unspecified abnormal findings in urine Status: Acute (7) Hypertension: Qualifiers: Hypertension type: unspecified Qualified Code(s): I10 - Essential (primary) hypertension Code(s): I10 - Essential (primary) hypertension Status: Acute Assessment and Plan: Currently blood pressure is stable and go without any antihypertensive. Continue to monitor. (8) Hypercholesterolemia: Code(s): E78.00 - Pure hypercholesterolemia, unspecified Status: Acute (9) Diabetic foot ulcer: Qualifiers: Diabetes mellitus type: type 2 Diabetic foot ulcer location: toe Laterality: left Non-pressure ulcer stage: limited to breakdown of skin Qualified Code(s): E11.621 - Type 2 diabetes mellitus with foot ulcer; L97.521 - Non-pressure chronic ulcer of other part of left foot limited to breakdown of skin Code(s): E11.621 - Type 2 diabetes mellitus with foot ulcer; L97.509 - Non-pressure chronic ulcer of other part of unspecified foot with unspecified severity Status: Acute (10) Cellulitis: Qualifiers: Laterality: left Site of cellulitis: extremity Site of cellulitis of extremity: toe Qualified Code(s): L03.032 - Cellulitis of left toe Code(s): L03.90 - Cellulitis, unspecified Status: Ac
[2021-03-17 08:03] LABS: Glucose Point of Care 170 mg/dl (65-105)
[2021-03-17] MEDS: GABAPENTIN 300 MG CAPSULE 600 MG PO ×2 (08:26→12:46)
[2021-03-17] MEDS: HEPARIN SODIUM 5,000 UNITS/ML VIAL 5000 UNITS SUB-Q ×2 (08:26→21:18)
[2021-03-17] MEDS: HYDROcodone/acetaminophen (*CRX) 5-325 MG TABLET 1 TAB PO ×3 (08:27→21:17)
[2021-03-17] MEDS: INSULIN ASPART (*BKC) 100 UNITS/ML 7 UNITS SUB-Q ×3 (08:27→16:45)
[2021-03-17] MEDS: INSULIN GLARGINE (*BKC) 100 UNITS/ML 20 UNITS SUB-Q (08:31)
[2021-03-17 10:12] VITALS: BP 110/69; PULSE 86; RESP 14; TEMP 35.7; O2SAT 95
--- NOTE | 2021-03-17 10:30 | PCCDE ---
Diabetes education f/up: pt continues on basal, bolus and corrrection scale insulin regimen. Noted BG pattern 03/16 [phone], 03/17 170 Provided h/o Mealtime insulin Management and reviewed types of insulin and when to take each. Explained how to use correction scale and pt was able to v/u. Would recommend discharge with correction scale to optimize glycemic control for healing. Pt stated she was out of test strips and then pt wasn't sure what meter she has or if it is covered by [employer]. Provided ONE TOUCH VERIO REFLECT BG meter (free of charge and test strips covered by [employer]). Recommended to use with ONE TOUCH REVEAL jethro. Discussed the importance of consistent carb intake while on set insulin doses. Insulin coverage by [employer] is: Marv Ramso and Nacho Mendoza Pt to call DM Specialist with questions
--- NOTE | 2021-03-17 11:54 | PM.PNGS ---
Progress Note: A&P Assessment and Plan (1) Osteomyelitis of ankle or foot, left, acute: Code(s): M86.172 - Other acute osteomyelitis, left ankle and foot Status: Acute Assessment and Plan: Patient decided to choose non-surgical treatment and to continue with long-term course of IV antibiotics (ID rec 6 weeks) with close outpatient follow-up. She knows the potential risks and complications that can arise with this treatment option, has had multiple discussions with multiple providers involved. Continue working on discharge planning. I discussed with patient and care coordination today, they are awaiting a reply from a PCP who potentially will follow her IV antibiotics. (2) Type 2 diabetes mellitus: Qualifiers: Diabetes mellitus keno terminal operator insulin use: without keno terminal operator use Diabetes mellitus complication status: with hyperglycemia Qualified Code(s): E11.65 - Type 2 diabetes mellitus with hyperglycemia Code(s): E11.9 - Type 2 diabetes mellitus without complications Status: Acute Additional Plan I have discussed the plan of care with Dr. Solo. Subjective Subjective Date/Time Seen: 03/17/21 11:00 Patient reports: no new complaints, feels better and afebrile Interval history: Patient seen and examined today. The patient reports still having some pain in her left foot but it has improved some since admission. She is being compliant with the post-op shoe when ambulating. She reports that she has called her insurance regarding discharge planning, and care coordination was working on a PCP who potentially would follow her IV antibiotics. The patient refused to have her dressing removed on her left foot so I could assess this. She wanted to wait until the afternoon when it needs to be changed. Review of Systems Review of Systems: All systems reviewed & are unremarkable except as noted in HPI and below Exam Const: General: comfortable, no acute distress, alert and awake Nutritional Appearance: obese Orientation/consciousness: patient oriented x3 Extrem: Right upper extremity: Extremity exam: right hand (slight edema reportedly from IV infiltration) other (Right PICC in place, drsg clean and dry) Left upper extremity: elbow/forearm (bruising noted reportedly from previous IV attempts) Left lower extremity: lower leg Details: other (1-2+ edema noted to lower leg) Other: LLE - drsg C/D/I Psych: Appearance: grossly normal Judgement: Good judgement present (Psych) Objective Data Vital Signs Vital Signs: Vital Signs - 24 hr 03/16/21 14:10 03/16/21 18:25 03/16/21 20:50 Temperature 97.7 F 97.1 F L 98.1 F Pulse Rate 86 92 84 Respiratory Rate 18 18 14 Blood Pressure 131/80 127/75 109/65 Pulse Oximetry 100 97 96 03/17/21 00:02 03/17/21 05:08 03/17/21 10:12 Temperature 97.7 F 98.1 F 96.2 F L Pulse Rate 83 80 86 Respiratory Rate 14 14 14 Blood Pressure 107/58 L 102/54 L 110/69 Pulse Oximetry 95 94 95 Intake/Output Intake/Output: Intake & Output 03/14/21 03/15/21 03/16/21 03/17/21 23:59 23:59 23:59 23:59 Intake Total 5610 3620 990 Output Total 5700 4000 800 Balance -90 -380 190 Meds/Results Medications: Active Medications Generic Name Dose Route Start Last Admin Trade Name Freq PRN Reason Stop Dose Admin Acetaminophen 650 mg 03/11/21 01:18 03/13/21 13:59 Acetaminophen 325 Mg Tablet PO 650 mg Q4H PRN Administration Mild Pain (1-3) or Fever Hydrocodone Bitart/Acetaminophen 1 tab 03/12/21 12:27 03/17/21 08:27 Hydrocodone/Acetaminophen (*Crx) 5-325 Mg Tablet PO 1 tab Q6H PRN Administration Pain Rated 4-10 Dextrose 12.5 gm 03/11/21 05:35 Dextrose 50% 25 Gm/50 Ml Syringe IV PUSH PRN PRN Hypoglycemia Protocol Gabapentin 600 mg 03/12/21 08:00 03/17/21 08:26 Gabapentin 300 Mg Capsule PO 600 mg DAILY@0800,1200 LELE Administration Gabapentin 1,200 mg 03/11/21 17:00 03/16/21 16:33 Gabapentin 400 Mg Capsule
[2021-03-17 12:26] LABS: Glucose Point of Care 152 mg/dl (65-105)
[2021-03-17 15:45] VITALS: BP 127/75; PULSE 78; RESP 14; TEMP 36.3; O2SAT 97
[2021-03-17] MEDS: SILVERGEL (ELTA) 45 ML 1 APPLIC TOPICAL (16:27)
[2021-03-17] MEDS: GABAPENTIN 400 MG CAPSULE 1200 MG PO (16:42)
[2021-03-17] MEDS: INSULIN ASPART (*BKC) 100 UNITS/ML SUB-Q (16:45)
[2021-03-17 17:05] LABS: Glucose Point of Care 224 mg/dl (65-105)
[2021-03-17 19:47] VITALS: BP 101/54; PULSE 81; RESP 17; TEMP 36.6; O2SAT 95
[2021-03-17 21:34] LABS: Glucose Point of Care 236 mg/dl (65-105)
[2021-03-17 23:44] VITALS: BP 100/52; PULSE 80; RESP 17; TEMP 36.6; O2SAT 94
[2021-03-18 03:35] VITALS: BP 103/60; PULSE 82; RESP 16; TEMP 36.4; O2SAT 96
[2021-03-18 05:30] LABS: Basophils Absolute Auto 0.1 K/mm3 (0.0-0.1); Basophils Percent Auto 0.6 % (0.2-1.2); Eosinophils Absolute Auto 0.5 K/mm3 (0-0.3); Eosinophils Percent Auto 6.4 % (0-4.4); Hematocrit 32.2 % (37.0-47.0); Hemoglobin 10.5 g/dL (12.0-15.0); Immature Granulocyte Absolute 0.05 K/mm3 (0.00-0.031); Immature Granulocyte Percent A 0.6 % (0-0.5); Lymphocytes Percent Auto 33.4 % (18.3-44.2); Mean Corpuscular HGB Conc 32.6 g/dl (32-36); Mean Corpuscular Hemoglobin 26.8 pg (26-34); Mean Corpuscular Volume 82.1 fl (80-100); Mean Platelet Volume 9.5 fl (7.4-10.4); Monocytes Absolute Auto 0.8 K/mm3 (0.1-0.6); Monocytes Percent Auto 10.8 % (2.6-8.5); Neutrophils Absolute Auto 3.8 K/mm3 (1.3-6.7); Neutrophils Percent Auto 48.2 % (45.5-73.1); Platelet Count Result 324 k/mm3 (150-375); Red Blood Count 3.92 M/mm3 (4.2-5.4); White Blood Count 7.8 K/mm3 (4.5-10.0)
[2021-03-18 05:49] LABS: Anion Gap 8 mmol/L (8-16); Blood Urea Nitrogen 10 mg/dL (7-17); Carbon Dioxide 26 mmol/L (22-30); Chloride 102 mmol/L (98-107); Estimated Glomerular Filt Rate > 60; Glucose 284 mg/dL (65-110); Sodium 136 mmol/L (137-145)
[2021-03-18 05:50] LABS: Calcium 8.6 mg/dL (8.4-10.2)
[2021-03-18] MEDS: CENTRAL LINE FLUSH 10 ML IV PUSH ×3 (06:37→21:55)
[2021-03-18 08:02] LABS: Glucose Point of Care 186 mg/dl (65-105)
[2021-03-18] MEDS: INSULIN ASPART (*BKC) 100 UNITS/ML 7 UNITS SUB-Q ×3 (08:17→16:50)
[2021-03-18] MEDS: INSULIN GLARGINE (*BKC) 100 UNITS/ML 20 UNITS SUB-Q (08:18)
[2021-03-18] MEDS: GABAPENTIN 300 MG CAPSULE 600 MG PO ×2 (08:22→11:49)
[2021-03-18] MEDS: SILVERGEL (ELTA) 45 ML 1 APPLIC TOPICAL (08:22)
[2021-03-18] MEDS: HYDROcodone/acetaminophen (*CRX) 5-325 MG TABLET 1 TAB PO ×3 (08:31→21:56)
[2021-03-18 09:50] VITALS: BP 107/65; PULSE 88; RESP 18; TEMP 36.2; O2SAT 96
--- NOTE | 2021-03-18 10:36 | PM.IMPN ---
Progress Note: A&P Assessment and Plan (1) Osteomyelitis of ankle or foot, left, acute: Code(s): M86.172 - Other acute osteomyelitis, left ankle and foot Status: Acute Assessment and Plan: 1. Osteomyelitis of the left fourth proximal phalanx and intervening joint : -patient presenting with an ulcer noted over the left 4th proximal phalanx probing to the bone -continue on IV vancomycin and imipenem; - PICC line was placed for continuation of IV antibiotics on 03/13/2021. -blood cultures have remained unrevealing. Wound cultures growing MRSA. - Per ID less dense 5% chance of medical cure; however patient wants to pursue this avenue. -wound culture is growing MRSA. -primary care to monitor IV antibiotics as an outpatient. Plan for discharge as soon as insurance coverage is verified. (2) Pathological fracture: Qualifiers: Pathology associated with fracture: unspecified disease Site of pathological fracture: foot Encounter type: initial encounter Laterality: left Qualified Code(s): M84.475A - Pathological fracture, left foot, initial encounter for fracture Code(s): M84.40XA - Pathological fracture, unspecified site, initial encounter for fracture Status: Acute Assessment and Plan: Continue pain management. Currently on broad-spectrum IV antibiotics. Patient instructed to follow-up with surgery if there is any deterioration for immediate amputation. Patient was educated about the risk inherent to delaying her surgery, including higher level of amputation. She still wants to explore a conservative management. Continue IV antibiotics for 6-weeks. (3) Septic arthritis: Qualifiers: Septic arthritis location: foot Septic arthritis organism: due to unspecified organism Laterality: left Qualified Code(s): M00.9 - Pyogenic arthritis, unspecified Code(s): M00.9 - Pyogenic arthritis, unspecified Status: Acute Assessment and Plan: Pathological fracture at the base of left 4th proximal phalanx: -noted in the x-ray -Per surgery: Requires amputation, pt would like to try conservative mgmt c IV abx and wound care for now (4) Abnormal urinalysis: Code(s): R82.90 - Unspecified abnormal findings in urine Status: Acute (5) Hypertension: Qualifiers: Hypertension type: unspecified Qualified Code(s): I10 - Essential (primary) hypertension Code(s): I10 - Essential (primary) hypertension Status: Acute Assessment and Plan: Currently blood pressure is stable and go without any antihypertensive. Continue to monitor. (6) Hypercholesterolemia: Code(s): E78.00 - Pure hypercholesterolemia, unspecified Status: Acute (7) Diabetic foot ulcer: Qualifiers: Diabetes mellitus type: type 2 Diabetic foot ulcer location: toe Laterality: left Non-pressure ulcer stage: limited to breakdown of skin Qualified Code(s): E11.621 - Type 2 diabetes mellitus with foot ulcer; L97.521 - Non-pressure chronic ulcer of other part of left foot limited to breakdown of skin Code(s): E11.621 - Type 2 diabetes mellitus with foot ulcer; L97.509 - Non-pressure chronic ulcer of other part of unspecified foot with unspecified severity Status: Acute (8) Cellulitis: Qualifiers: Laterality: left Site of cellulitis: extremity Site of cellulitis of extremity: toe Qualified Code(s): L03.032 - Cellulitis of left toe Code(s): L03.90 - Cellulitis, unspecified Status: Acute Assessment and Plan: Continue imipenem and vancomycin by ID recommendation. Wound culture is growing MRSA.. (9) Type 2 diabetes mellitus: Qualifiers: Diabetes mellitus correction insulin use: without correction use Diabetes mellitus complication status: with hyperglycemia Qualified Code(s): E11.65 - Type 2 diabetes mellitus with hyperglycemia Code(s): E11.9 - Type 2 diabetes mellitus without complications
[2021-03-18] MEDS: ALTEPLASE 2 MG VIAL (CATHFLO) IV PUSH (10:37)
--- NOTE | 2021-03-18 12:20 | PCNWS ---
Weekly nutritional screen. Patient is tolerating current diet with adequate intake of 100%. No weight loss reported. No nutritional needs at this time.
[2021-03-18 13:15] LABS: Glucose Point of Care 171 mg/dl (65-105)
[2021-03-18 14:40] VITALS: BP 114/78; PULSE 86; RESP 18; TEMP 35.7; O2SAT 97
--- NOTE | 2021-03-18 16:27 | PM.PNGS ---
Progress Note: A&P Assessment and Plan (1) Osteomyelitis of ankle or foot, left, acute: Code(s): M86.172 - Other acute osteomyelitis, left ankle and foot Status: Acute Assessment and Plan: Patient decided to choose non-surgical treatment and to continue with long-term course of IV antibiotics (ID rec 6 weeks) with close outpatient follow-up. She knows the potential risks and complications that can arise with this treatment option, has had multiple discussions with multiple providers involved. Her PCP has agreed to follow her IV antibiotics. Working on approval from insurance for discharge. Continue with discharge planning. Continue IV abx per ID. Okay to d/c from our standpoint. F/u with Dr. Solo in the wound clinic in 1-2 weeks. 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 Solo. Subjective Subjective Date/Time Seen: 03/18/21 15:27 Patient reports: no new complaints, feels better and afebrile Interval history: Patient seen and examined. She reports that her swelling in the left foot has come down and she feels her pain with ambulation is improved with wearing the post-op shoe. No new complaints. Overall feeling better. Review of Systems Review of Systems: All systems reviewed & are unremarkable except as noted in HPI and below Constitutional: Constitutional: Denies fever(s) Exam Const: General: comfortable, no acute distress, alert and awake Nutritional Appearance: obese Orientation/consciousness: patient oriented x3 Extrem: Right upper extremity: Extremity exam: right hand other (Right PICC in place, drsg clean and dry) Left upper extremity: elbow/forearm (bruising noted reportedly from previous IV attempts) Left lower extremity: lower leg Details: other (1+ edema noted to left foot, improving) Other: Left 4th toe with erythema and black ulcer on the plantar aspect of distal part of toe and a small pinpoint open wound at the base of the toe on the dorsal aspect. Edema appears to be improving. No erythema extending to the foot. Able to wiggle toes. Strong palpable DP and PT pulses. Psych: Appearance: grossly normal Insight: Good insight present (Psych) Judgement: Good judgement present (Psych) Objective Data Vital Signs Vital Signs: Vital Signs - 24 hr 03/17/21 19:47 03/17/21 23:44 03/18/21 03:35 Temperature 97.8 F 98 F 97.6 F Pulse Rate 81 80 82 Respiratory Rate 17 17 16 Blood Pressure 101/54 L 100/52 L 103/60 Pulse Oximetry 95 94 96 03/18/21 09:50 03/18/21 14:40 Temperature 97.1 F L 96.3 F L Pulse Rate 88 86 Respiratory Rate 18 18 Blood Pressure 107/65 114/78 Pulse Oximetry 96 97 Intake/Output Intake/Output: Intake & Output 03/15/21 03/16/21 03/17/21 03/18/21 23:59 23:59 23:59 23:59 Intake Total 5610 3620 3370 2780 Output Total 5700 4000 3800 1500 Balance -90 -380 -430 1280 Meds/Results Medications: Active Medications Generic Name Dose Route Start Last Admin Trade Name Freq PRN Reason Stop Dose Admin Acetaminophen 650 mg 03/11/21 01:18 03/13/21 13:59 Acetaminophen 325 Mg Tablet PO 650 mg Q4H PRN Administration Mild Pain (1-3) or Fever Hydrocodone Bitart/Acetaminophen 1 tab 03/12/21 12:27 03/18/21 14:13 Hydrocodone/Acetaminophen (*Crx) 5-325 Mg Tablet PO 1 tab Q6H PRN Administration Pain Rated 4-10 Alteplase, Recombinant 2 mg 03/18/21 10:13 03/18/21 10:37 Alteplase 2 Mg Vial (Cathflo) IV PUSH 2 mg ONCE PRN Administration Line Occlusion Dextrose 12.5 gm 03/11/21 05:35 Dextrose 50% 25 Gm/50 Ml Syringe IV PUSH PRN PRN Hypoglycemia Protocol Gabapen
[2021-03-18 16:45] LABS: Glucose Point of Care 252 mg/dl (65-105)
[2021-03-18] MEDS: INSULIN ASPART (*BKC) 100 UNITS/ML SUB-Q (16:51)
[2021-03-18] MEDS: GABAPENTIN 400 MG CAPSULE 1200 MG PO (16:53)
[2021-03-18 18:00] VITALS: BP 123/79; PULSE 105; RESP 20; TEMP 36.1; O2SAT 99
[2021-03-18 19:41] VITALS: BP 100/58; PULSE 86; RESP 18; TEMP 37.1; O2SAT 96
[2021-03-18 21:51] VITALS: BP 109/57
[2021-03-18 22:12] LABS: Glucose Point of Care 202 mg/dl (65-105)
[2021-03-19 00:13] VITALS: BP 100/50; PULSE 89; RESP 17; TEMP 36.4; O2SAT 95
[2021-03-19 03:15] VITALS: BP 100/64; PULSE 86; RESP 17; TEMP 35.8; O2SAT 97
[2021-03-19 03:51] LABS: Vancomycin Trough 20.1 ug/mL (10.0-20.0)
[2021-03-19] MEDS: CENTRAL LINE FLUSH 10 ML IV PUSH ×3 (05:48→21:00)
[2021-03-19 05:54] LABS: Basophils Absolute Auto 0.1 K/mm3 (0.0-0.1); Basophils Percent Auto 0.6 % (0.2-1.2); Eosinophils Absolute Auto 0.5 K/mm3 (0-0.3); Eosinophils Percent Auto 5.7 % (0-4.4); Hematocrit 34.3 % (37.0-47.0); Hemoglobin 10.8 g/dL (12.0-15.0); Immature Granulocyte Absolute 0.05 K/mm3 (0.00-0.031); Immature Granulocyte Percent A 0.5 % (0-0.5); Lymphocytes Absolute Auto 3.22 K/mm3 (0.9-3.2); Lymphocytes Percent Auto 34.6 % (18.3-44.2); Mean Corpuscular HGB Conc 31.5 g/dl (32-36); Mean Corpuscular Hemoglobin 26.8 pg (26-34); Mean Corpuscular Volume 85.1 fl (80-100); Mean Platelet Volume 9.5 fl (7.4-10.4); Monocytes Percent Auto 10.9 % (2.6-8.5); Neutrophils Absolute Auto 4.4 K/mm3 (1.3-6.7); Neutrophils Percent Auto 47.7 % (45.5-73.1); Platelet Count Result 350 k/mm3 (150-375); Red Blood Count 4.03 M/mm3 (4.2-5.4); Red Cell Distribution Width 13.9 % (11.5-14.5); White Blood Count 9.3 K/mm3 (4.5-10.0)
[2021-03-19 06:00] LABS: Anion Gap 6 mmol/L (8-16); Blood Urea Nitrogen 11 mg/dL (7-17); Calcium 9.1 mg/dL (8.4-10.2); Carbon Dioxide 28 mmol/L (22-30); Chloride 103 mmol/L (98-107); Estimated Glomerular Filt Rate > 60; Glucose 177 mg/dL (65-110); Potassium 4.4 mmol/L (3.4-5.0); Sodium 137 mmol/L (137-145)
--- NOTE | 2021-03-19 07:34 | PCNSR ---
On 03/19/21, the student,Puja Harris, provided care and completed [facility] documentation on this patient. I have reviewed the student's documentation and agree with the findings.
[2021-03-19] MEDS: INSULIN ASPART (*BKC) 100 UNITS/ML 8 UNITS SUB-Q ×3 (07:54→16:34)
[2021-03-19] MEDS: INSULIN GLARGINE (*BKC) 100 UNITS/ML 22 UNITS SUB-Q (07:55)
[2021-03-19 07:57] LABS: Glucose Point of Care 147 mg/dl (65-105)
[2021-03-19] MEDS: GABAPENTIN 300 MG CAPSULE 600 MG PO ×2 (07:58→12:16)
[2021-03-19 08:08] VITALS: BP 118/64; PULSE 85; RESP 16; TEMP 36.6; O2SAT 97
[2021-03-19] MEDS: HYDROcodone/acetaminophen (*CRX) 5-325 MG TABLET 1 TAB PO ×3 (08:16→22:01)
--- NOTE | 2021-03-19 08:48 | PM.IMPN ---
Progress Note: A&P Assessment and Plan (1) Osteomyelitis of ankle or foot, left, acute: Code(s): M86.172 - Other acute osteomyelitis, left ankle and foot Status: Acute Assessment and Plan: 1. Osteomyelitis of the left fourth proximal phalanx and intervening joint : -patient presenting with an ulcer noted over the left 4th proximal phalanx probing to the bone -continue on IV vancomycin and imipenem; run, he level was 20.1 on 03/19/2021. Recheck level prior to next dose tomorrow morning. - PICC line was placed for continuation of IV antibiotics on 03/13/2021. -blood cultures have remained unrevealing. Wound cultures growing MRSA. - Per ID less dense 5% chance of medical cure; however patient wants to pursue this avenue. -wound culture is growing MRSA. -primary care to monitor IV antibiotics as an outpatient. Plan for discharge as soon as insurance coverage for home antibiotic therapy is verified. (2) Pathological fracture: Qualifiers: Pathology associated with fracture: unspecified disease Site of pathological fracture: foot Encounter type: initial encounter Laterality: left Qualified Code(s): M84.475A - Pathological fracture, left foot, initial encounter for fracture Code(s): M84.40XA - Pathological fracture, unspecified site, initial encounter for fracture Status: Acute Assessment and Plan: Continue pain management. Currently on broad-spectrum IV antibiotics. Patient instructed to follow-up with surgery if there is any deterioration for immediate amputation. Patient was educated about the risk inherent to delaying her surgery, including higher level of amputation. She still wants to explore a conservative management. Continue IV antibiotics for 6-weeks. (3) Septic arthritis: Qualifiers: Septic arthritis location: foot Septic arthritis organism: due to unspecified organism Laterality: left Qualified Code(s): M00.9 - Pyogenic arthritis, unspecified Code(s): M00.9 - Pyogenic arthritis, unspecified Status: Acute Assessment and Plan: Pathological fracture at the base of left 4th proximal phalanx: -noted in the x-ray -Per surgery: Requires amputation, pt would like to try conservative mgmt c IV abx and wound care for now (4) Abnormal urinalysis: Code(s): R82.90 - Unspecified abnormal findings in urine Status: Acute Assessment and Plan: Currently asymptomatic. Nothing to do. (5) Hypertension: Qualifiers: Hypertension type: unspecified Qualified Code(s): I10 - Essential (primary) hypertension Code(s): I10 - Essential (primary) hypertension Status: Acute Assessment and Plan: Currently blood pressure is stable and at goal without any antihypertensive. Continue to monitor. (6) Hypercholesterolemia: Code(s): E78.00 - Pure hypercholesterolemia, unspecified Status: Acute (7) Diabetic foot ulcer: Qualifiers: Diabetes mellitus type: type 2 Diabetic foot ulcer location: toe Laterality: left Non-pressure ulcer stage: limited to breakdown of skin Qualified Code(s): E11.621 - Type 2 diabetes mellitus with foot ulcer; L97.521 - Non-pressure chronic ulcer of other part of left foot limited to breakdown of skin Code(s): E11.621 - Type 2 diabetes mellitus with foot ulcer; L97.509 - Non-pressure chronic ulcer of other part of unspecified foot with unspecified severity Status: Acute (8) Cellulitis: Qualifiers: Laterality: left Site of cellulitis: extremity Site of cellulitis of extremity: toe Qualified Code(s): L03.032 - Cellulitis of left toe Code(s): L03.90 - Cellulitis, unspecified Status: Acute Assessment and Plan: Continue imipenem and vancomycin by ID recommendation. Wound culture is growing MRSA.. 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
[2021-03-19 12:09] LABS: Glucose Point of Care 156 mg/dl (65-105)
[2021-03-19] MEDS: SILVERGEL (ELTA) 45 ML 1 APPLIC TOPICAL (14:56)
[2021-03-19 14:57] VITALS: BP 148/64
[2021-03-19 16:35] LABS: Glucose Point of Care 195 mg/dl (65-105)
[2021-03-19] MEDS: GABAPENTIN 400 MG CAPSULE 1200 MG PO (17:29)
[2021-03-19 18:00] VITALS: BP 109/65; PULSE 92; RESP 16; TEMP 36.9; O2SAT 100
[2021-03-19 21:07] LABS: Glucose Point of Care 244 mg/dl (65-105)
[2021-03-19 22:00] VITALS: BP 125/82; PULSE 95; RESP 18; TEMP 36.2; O2SAT 99
[2021-03-20 02:00] VITALS: BP 94/56; PULSE 75; RESP 18; TEMP 36.1; O2SAT 97
[2021-03-20] MEDS: CENTRAL LINE FLUSH 10 ML IV PUSH (06:22)
[2021-03-20] MEDS: CENTRAL LINE FLUSH 20 ML IV PUSH (06:23)
[2021-03-20 06:33] LABS: Basophils Absolute Auto 0.1 K/mm3 (0.0-0.1); Basophils Percent Auto 0.8 % (0.2-1.2); Eosinophils Absolute Auto 0.6 K/mm3 (0-0.3); Eosinophils Percent Auto 6.4 % (0-4.4); Hematocrit 35.3 % (37.0-47.0); Hemoglobin 11.2 g/dL (12.0-15.0); Immature Granulocyte Absolute 0.05 K/mm3 (0.00-0.031); Immature Granulocyte Percent A 0.6 % (0-0.5); Lymphocytes Percent Auto 34.5 % (18.3-44.2); Mean Corpuscular HGB Conc 31.7 g/dl (32-36); Mean Corpuscular Hemoglobin 26.7 pg (26-34); Mean Corpuscular Volume 84.2 fl (80-100); Mean Platelet Volume 9.3 fl (7.4-10.4); Monocytes Absolute Auto 0.9 K/mm3 (0.1-0.6); Monocytes Percent Auto 10.7 % (2.6-8.5); Neutrophils Absolute Auto 4.1 K/mm3 (1.3-6.7); Platelet Count Result 361 k/mm3 (150-375); Red Blood Count 4.19 M/mm3 (4.2-5.4); Red Cell Distribution Width 13.8 % (11.5-14.5); White Blood Count 8.7 K/mm3 (4.5-10.0)
[2021-03-20 06:47] LABS: Anion Gap 9 mmol/L (8-16); Blood Urea Nitrogen 11 mg/dL (7-17); Calcium 8.8 mg/dL (8.4-10.2); Carbon Dioxide 28 mmol/L (22-30); Chloride 102 mmol/L (98-107); Estimated Glomerular Filt Rate > 60; Glucose 195 mg/dL (65-110); Potassium 4.7 mmol/L (3.4-5.0); Sodium 139 mmol/L (137-145)
[2021-03-20 07:52] LABS: Glucose Point of Care 173 mg/dl (65-105)
[2021-03-20 08:00] VITALS: BP 116/70; PULSE 90
[2021-03-20] MEDS: HYDROcodone/acetaminophen (*CRX) 5-325 MG TABLET 1 TAB PO (08:06)
[2021-03-20] MEDS: GABAPENTIN 300 MG CAPSULE 600 MG PO (08:07)
[2021-03-20] MEDS: INSULIN ASPART (*BKC) 100 UNITS/ML 8 UNITS SUB-Q (08:08)
[2021-03-20] MEDS: INSULIN GLARGINE (*BKC) 100 UNITS/ML 22 UNITS SUB-Q (08:09)
[2021-03-20] MEDS: SILVERGEL (ELTA) 45 ML 1 APPLIC TOPICAL (08:11)
--- NOTE | 2021-03-20 08:51 | PM.DS ---
DS: Admitting Diagnosis Discharge Date 03/20/21 Admitting Diagnosis left toe cellulitis diabetic foot ulcer diabetes mellitus hyperlipidemia hypertension asthma DS: Discharge Diagnosis Discharge Diagnosis (1) Osteomyelitis of ankle or foot, left, acute: Code(s): M86.172 - Other acute osteomyelitis, left ankle and foot Status: Acute Assessment and Plan: 1. Osteomyelitis of the left fourth proximal phalanx and intervening joint : -patient presenting with an ulcer noted over the left 4th proximal phalanx probing to the bone -continue on IV vancomycin and imipenem. infectious Disease has evaluated the patient and recommended 6 weeks of antibiotics. She was started on antibiotics on 03/11/21 and the last dose of antibiotics will be 04/22/21. - PICC line was placed for continuation of IV antibiotics on 03/13/2021. -blood cultures have remained unrevealing. Wound cultures growing MRSA. - Per ID 5% chance of medical cure; however patient wants to pursue this avenue. -wound culture is growing MRSA. -primary care to monitor IV antibiotics as an outpatient. (2) Pathological fracture: Qualifiers: Pathology associated with fracture: unspecified disease Site of pathological fracture: foot Encounter type: initial encounter Laterality: left Qualified Code(s): M84.475A - Pathological fracture, left foot, initial encounter for fracture Code(s): M84.40XA - Pathological fracture, unspecified site, initial encounter for fracture Status: Acute Assessment and Plan: Continue pain management. Currently on broad-spectrum IV antibiotics. Patient instructed to follow-up with surgery if there is any deterioration for immediate amputation. Patient was educated about the risk inherent to delaying her surgery, including higher level of amputation. She still wants to explore a conservative management. Continue IV antibiotics for 6-weeks. (3) Septic arthritis: Qualifiers: Septic arthritis location: foot Septic arthritis organism: due to unspecified organism Laterality: left Qualified Code(s): M00.9 - Pyogenic arthritis, unspecified Code(s): M00.9 - Pyogenic arthritis, unspecified Status: Acute Assessment and Plan: Pathological fracture at the base of left 4th proximal phalanx: -noted in the x-ray -Per surgery: Requires amputation, pt would like to try conservative mgmt c IV abx and wound care for now (4) Abnormal urinalysis: Code(s): R82.90 - Unspecified abnormal findings in urine Status: Acute Assessment and Plan: Currently asymptomatic. culture remained negative. (5) Hypertension: Qualifiers: Hypertension type: unspecified Qualified Code(s): I10 - Essential (primary) hypertension Code(s): I10 - Essential (primary) hypertension Status: Acute Assessment and Plan: Currently blood pressure is stable and at goal without any antihypertensive. Continue to monitor. (6) Hypercholesterolemia: Code(s): E78.00 - Pure hypercholesterolemia, unspecified Status: Acute Assessment and Plan: Continue to monitor (7) Diabetic foot ulcer: Qualifiers: Diabetes mellitus type: type 2 Diabetic foot ulcer location: toe Laterality: left Non-pressure ulcer stage: limited to breakdown of skin Qualified Code(s): E11.621 - Type 2 diabetes mellitus with foot ulcer; L97.521 - Non-pressure chronic ulcer of other part of left foot limited to breakdown of skin Code(s): E11.621 - Type 2 diabetes mellitus with foot ulcer; L97.509 - Non-pressure chronic ulcer of other part of unspecified foot with unspecified severity Status: Acute Assessment and Plan: as above (8) Cellulitis: Qualifiers: Laterality: left Site of cellulitis: extremity Site of cellulitis of extremity: toe Qualified Code(s): L03.032 - Cellulitis of left toe Code(s): L03.90 - Cellulitis, unspec
== END 2021-03-20 11:40 | disposition home health service (06) | DRG 344 ==
LOC: ANHED 03-11 00:51 → ANH2MED 03-11 07:17
PROVIDERS: Internal Medicine; Admitting Provider Internal Medicine; Emergency Provider Family Medicine; PCP Internal Medicine Gastroenterology; Visit Provider Internal Medicine
DX: L03.032 Cellulitis of left toe (principal); E11.621 Type 2 diabetes mellitus with foot ulcer; L97.521 Non-pressure chronic ulcer of other part of left foot limited to breakdown of skin; L02.212 Cutaneous abscess of back [any part, except buttock and flank]; E78.00 Pure hypercholesterolemia, unspecified; E78.5 Hyperlipidemia, unspecified; I10 Essential (primary) hypertension; M86.172 Other acute osteomyelitis, left ankle and foot; E11.69 Type 2 diabetes mellitus with other specified complication; M84.478A Pathological fracture, left toe(s), initial encounter for fracture; M00.9 Pyogenic arthritis, unspecified; J45.909 Unspecified asthma, uncomplicated; D72.829 Elevated white blood cell count, unspecified; R82.90 Unspecified abnormal findings in urine; L40.9 Psoriasis, unspecified; E87.1 Hypo-osmolality and hyponatremia; B95.62 Methicillin resistant Staphylococcus aureus infection as the cause of diseases classified elsewhere; E11.65 Type 2 diabetes mellitus with hyperglycemia; E11.42 Type 2 diabetes mellitus with diabetic polyneuropathy; Z28.21 Immunization not carried out because of patient refusal; E66.01 Morbid (severe) obesity due to excess calories; Z68.39 Body mass index [BMI] 39.0-39.9, adult; Z79.84 Long term (current) use of oral hypoglycemic drugs; Z79.899 Other long term (current) drug therapy
CPT/HCPCS: 36415; 36569; 73630; 76604; 80048; 80053; 80202; 81001; 81025; 82550; 82565; 82948; 83036; 83605; 83735; 84100; 85025; 86140; 87040; 87070; 87086; 87088; 87147; 87186; 87205; 99285; A9270; C1751; J0743; J1644; J1815; J2997; J3370; J7030

== ENCOUNTER 2021-03-23 17:50 | Emergency (ER) | payer OTHER, SELFPAY ==
--- NOTE | ~2021-03-23 | XR_ITS ---
EXAMINATION: XR chest 1V portable DATE: 03/23/2021 21:23 INDICATION: PICC line placement TECHNIQUE: frontal view of the chest was obtained. COMPARISON: Chest radiograph dated 03/13/2021 FINDINGS: Right upper extremity peripherally inserted central venous catheter (PICC) tip remains at the cephala d superior vena cava. Lungs are clear with no focal airspace opacities, pulmonary edema, pleural effu perry or pneumothorax. The cardiomediastinal silhouette is normal. Visualized bones and soft tissues a re unremarkable. IMPRESSION: 1. Right PICC line tip unchanged in the cephalad superior vena cava. 2. No acute cardiopulmonary disease. Reviewed, dictated and finalized at location [facility]
[2021-03-23 18:02] VITALS: BP 118/79; PULSE 107; RESP 18; TEMP 36.6; O2SAT 98
[2021-03-23 20:20] VITALS: BP 129/86; PULSE 106; RESP 18; TEMP 36.6; O2SAT 95
--- NOTE | 2021-03-23 21:30 | ED.GENADULT ---
HPI - General Adult General Chief complaint: Unspecified Stated complaint: my PICC line is coming out Time Seen by Provider: 03/23/21 21:08 Source: patient and RN notes reviewed History of Present Illness HPI narrative: Patient is a 36 y/o female complaining of right arm PICC line partially came out. She states that she was getting outpatient IV antibiotics from her PICC line. She was recently diagnosed with osteomyelitis of right foot and she is receiving IV antibiotics. Related Data Home Medications Medication Instructions Recorded Confirmed gabapentin 1,200 mg PO DAILY@1700 03/11/21 03/27/21 gabapentin 600 mg PO BID 03/11/21 03/27/21 metformin 1,000 mg PO BID 03/11/21 03/27/21 tramadol 50 mg PO Q8H PRN 03/27/21 03/27/21 Allergies Allergy/AdvReac Type Severity Reaction Status Date / Time No Known Allergies Allergy Unknown Verified 03/26/21 23:48 Review of Systems Constitutional: Constitutional: Denies chills, Denies fever(s), Denies headache(s) and Denies weakness Eyes: Eyes: Denies blurry vision ENT: Denies headache(s) and Denies neck pain Cardiovascular: Cardiovascular: Denies chest pain and Denies dyspnea Respiratory: Respiratory: Denies cough and Denies dyspnea Gastrointestinal: Gastrointestinal: Denies abdominal pain, Denies diarrhea, Denies nausea and Denies vomiting Genitourinary: Genitourinary: Denies hematuria and Denies dysuria Musculoskeletal: Musculoskeletal: Denies back pain, Denies neck pain and Reports other (right foot pain) Neurologic: Denies headache(s) and Denies weakness [facility] Past Medical History Medical History (Updated 03/30/21 @ 12:23 by Mechelle Felton MD) Asthma Diabetes 03/12/2021 hemoglobin A1c 12.4 Diabetic neuropathy GERD (gastroesophageal reflux disease) Hypercholesterolemia Hypertension Kidney stones Obesity (BMI 30.0-34.9) Psoriasis Surgical History Surgical History History of tonsillectomy Family History Family History Grandparent Diabetes mellitus Father Diabetes mellitus Mother Diabetes mellitus Mother Hypertension Social History Social History (Updated 03/27/21 @ 06:54 by SOLIS Morley Social History: She lives at home with 19-year-old and 14-year-old children. As well as her mother. 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 Smoking status: Never smoker Alcohol intake: current Drinks per week: 1 Substance use: never Gender identity (if verbalized by the patient): Female Spiritual care concerns: No Exam Const: General: no acute distress and well developed Orientation/consciousness: oriented to person, oriented to place, oriented to time and patient oriented x3 HENMT: Head: normocephalic Ears: external ears normal General nose exam: Normal external nose present Eyes: General: appearance normal, both eyes and all related structures Conjunctivae: conjunctivae normal Neck: Neck: normal visual inspection and full ROM Chest: Chest palpation & inspection: normal inspection of the chest and no tenderness Resp: Effort & Inspection: normal respiratory effort Auscultation: clear to auscultation bilaterally Cardio: Rate: regular rate Rhythm: regular rhythm GI: GI Palp: No abdominal tenderness and Yes Soft to palpation Skin: General skin exam: normal color and turgor normal Neuro: General: oriented to person, oriented to place, oriented to time and patient oriented x3 Cognition (Neuro): normal cognition Extrem: General: normal to inspection, full ROM and no pedal edema Psych: Appearance: grossly normal Mental Status: mental status grossly normal Affect: normal affect Course Reevaluation(s) Reevaluation #1: Patient is expected to have new PICC inserted in AM and be discharged after. Dr. Braun is informed that patient will be
[2021-03-24] MEDS: traMADol HCL (*CRX) 50 MG TABLET PO (02:44)
--- NOTE | 2021-03-24 03:26 | PC.NURSE ---
pt had stated it was silvadine cream that she was using at home for her wound on the left foot, but when RN took the jar into the RM pt stated that it did not look the same as what she is using at home. RN unable to find name of medication, will change dressing and just do a dry dressing
--- NOTE | 2021-03-24 07:42 | PC.NURSE ---
PICC line nurse called and reports she will be coming in to see patient to redress and reeducate patient on PICC line. No ETA given at this time. Will continue to monitor patient.
[2021-03-24] MEDS: ALTEPLASE 2 MG VIAL (CATHFLO) IV PUSH ×4 (08:46→11:24)
[2021-03-24] MEDS: WATER, STERILE FOR INJECTION 10 ML VIAL XX (08:49)
[2021-03-24 08:52] VITALS: BP 107/70; PULSE 99; RESP 14; O2SAT 98
--- NOTE | 2021-03-24 09:02 | PC.NURSE ---
Patient was seen by nurse and had PICC line redressed. Upon assessment, PICC line did not have blood return. New orders received. Will continue to monitor patient.
--- NOTE | 2021-03-24 11:09 | PC.NURSE ---
Patient PICC line was not cleared with the first dose of the medication. Patient is due for IV antibiotics at this time. Attempted to do peripheral IV on patient to maintain antibiotic schedule. Patient refused this, states she will not allow anyone to try for one. States if needed she will allow a new PICC line if the 2nd dose does not clear the PICC line, but will not do a peripheral. Charge nurse made aware of this at this time.
[2021-03-24 14:17] VITALS: BP 110/80; PULSE 88; RESP 14; O2SAT 99
== END 2021-03-24 14:37 | disposition home or self-care (01) ==
PROVIDERS: Emergency Provider Emergency Medicine; PCP Internal Medicine Gastroenterology
DX: Z45.2 Encounter for adjustment and management of vascular access device (principal); M86.9 Osteomyelitis, unspecified; J45.909 Unspecified asthma, uncomplicated; E11.40 Type 2 diabetes mellitus with diabetic neuropathy, unspecified; K21.9 Gastro-esophageal reflux disease without esophagitis; E78.00 Pure hypercholesterolemia, unspecified; Z87.442 Personal history of urinary calculi; E66.9 Obesity, unspecified; Z68.33 Body mass index [BMI] 33.0-33.9, adult; Z79.84 Long term (current) use of oral hypoglycemic drugs
CPT/HCPCS: 37195; 71045; 96365; 96366; 96367; 96376; 99284; A9270; J0743; J2997; J3370

== ENCOUNTER 2021-03-26 15:01 | Observation (INO) | payer OTHER, SELFPAY ==
--- NOTE | ~2021-03-26 | XR_ITS ---
EXAMINATION: XR chest PICC line EXAM DATE: 03/28/2021 10:49 INDICATION: PICC line placement. TECHNIQUE: Portable AP frontal chest x-ray was obtained. Comparison is made to prior examination from 03/26/2021. FINDINGS: There is a new left-sided PICC line, tip projecting over cavoatrial junction, expected posi tion. The right-sided PICC line is at the brachiocephalic junction. No confluent consolidation, pneum othorax or pleural effusion suspected. Cardiomediastinal silhouette is normal. There are no osseous a bnormalities identified. IMPRESSION: 1. Left PICC line in position. 2. Right PICC line retraction. Reviewed, dictated and finalized at location A. STRIAL SEWER
--- NOTE | ~2021-03-26 | XR_ITS ---
EXAMINATION: XR chest 1V portable DATE: 03/26/2021 17:08 INDICATION: Midsternal issues and sluggish return on a PICC line. TECHNIQUE: frontal view of the chest was obtained. COMPARISON: Chest radiograph dated 03/23/2021 FINDINGS: The lungs remain clear with no focal airspace opacities, pulmonary edema, pleural effusion or pneumot horax. The cardiomediastinal silhouette is normal. Visualized bones and soft tissues are unremarkable . Right upper extremity peripherally inserted central venous catheter (PICC) tip near the junction of the right brachiocephalic vein and superior vena cava. IMPRESSION: 1. No acute cardiopulmonary disease. Reviewed, dictated and finalized at location A. E BLOCK MAKER
[2021-03-26 15:31] VITALS: BP 115/75; PULSE 101; RESP 14; TEMP 36; O2SAT 100
--- NOTE | 2021-03-26 17:14 | ED.GENADULT ---
HPI - General Adult General Chief complaint: Unspecified <CONNER Lyons Last Filed: 03/26/21 22:04> Stated complaint: PICC line not working right <CONNER Lyons Last Filed: 03/26/21 22:04> Time Seen by Provider: 03/26/21 16:37 <CONNER Lyons Last Filed: 03/26/21 22:04> Source: patient <CONNER Lyons Last Filed: 03/26/21 22:04> Mode of arrival: ambulatory <CONNER Lyons Last Filed: 03/26/21 22:04> Limitations: no limitations <CONNER Lyons Last Filed: 03/26/21 22:04> History of Present Illness HPI narrative: This is a 36 year old female that presents to the ER for PICC line issues. Reports she was seen for this a couple of days ago. Had catheters flushed with Cathflo and a chest x-ray that showed PICC line in place. Reports since yesterday she has been having trouble with her Primaxin. It is supposed to take 30 minutes and has been taking a couple of hours. She is not having any issues with the Vancomycin. Denies erythema of the area or fevers. <CONNER Lyons Last Filed: 03/26/21 22:04> Related Data Home medications: Home Medications Medication Instructions Recorded Confirmed gabapentin 1,200 mg PO DAILY@1700 03/11/21 03/11/21 gabapentin 600 mg PO BID 03/11/21 03/11/21 metformin 1,000 mg PO BID 03/11/21 03/11/21 <CONNER Lyons Last Filed: 03/26/21 22:04> Allergies/adverse reactions: Allergies Allergy/AdvReac Type Severity Reaction Status Date / Time No Known Allergies Allergy Unknown Verified 03/11/21 05:18 <CONNER Lyons Last Filed: 03/26/21 22:04> Review of Systems Review of Systems: CONSTITUTIONAL: Denies fever SKIN: Denies rash <Emy Young PA-C - Last Filed: 03/26/21 22:04> All systems reviewed & are unremarkable except as noted in HPI and below <Emy Young PA-C - Last Filed: 03/26/21 22:04> [facility] Past Medical History Medical History: Medical History Asthma Diabetes Hypercholesterolemia Hypertension Psoriasis <Emy Young PA-C - Last Filed: 03/26/21 22:04> Surgical History Surgical History: Surgical History History of tonsillectomy <Emy Young PA-C - Last Filed: 03/26/21 22:04> Social History Social History: Social History Smoking status: Never smoker Alcohol intake: never Substance use: never Gender identity (if verbalized by the patient): Female Spiritual care concerns: No <Emy Young PA-C - Last Filed: 03/26/21 22:04> Exam Narrative: GENERAL: Well-appearing, well-nourished, and in no acute distress. HEAD: Normocephalic, atraumatic. EYES: EOMI. CHEST: No respiratory distress. HEART: Regular rate EXTREMITIES: Normal range of motion. No edema or erythema. PICC line in place in the right upper arm SKIN: Warm, dry, no rash. NEURO: No focal deficits. Alert and oriented x3. PSYCH: Normal mood and affect <Emy Young PA-C - Last Filed: 03/26/21 22:04> Course ALLEY TENDER/PA Physician Supervision Patient seen and examined, vital signs stable, not in distress, regular rhythm, clear to auscultation bilateral, soft nontender nondistended, awake alert and oriented x4. Agreed with current plan and treatment. <Guillermo Braun MD - Last Filed: 03/26/21 22:16> Consultations Consultation #1: Spoke with Dr. Farah about patient and workup who accepts admission <Emy Young PA-C - Last Filed: 03/26/21 22:04> Date: 03/26/21 <Emy Young PA-C - Last Filed: 03/26/21 22:04> Time: 21:58 <Emy Young PA-C - Last Filed: 03/26/21 22:04> Vital Signs Vital signs: Vital Signs Temperature 36.0 C L 03/26/21 15:31 Pulse Rate 101 H 03/26/21 15:31 Respiratory Rate 14 03/26/21 15:31 Blood Pressure 115/75
[2021-03-26] MEDS: ALTEPLASE 2 MG VIAL (CATHFLO) IV PUSH ×2 (17:57)
--- NOTE | 2021-03-26 18:08 | PC.NURSE ---
Cathflo started at 1800.
[2021-03-26 19:25] VITALS: BP 116/79; PULSE 94; RESP 16; O2SAT 100
--- NOTE | 2021-03-26 20:11 | PC.NURSE ---
Cathflo treatment completed, little improvement noted in PICC. Blood return is sluggish.
[2021-03-26 23:17] LABS: Basophils Percent Auto 0.2 % (0.2-1.2); Eosinophils Absolute Auto 0.5 K/mm3 (0-0.3); Eosinophils Percent Auto 9.2 % (0-4.4); Hematocrit 31.9 % (37.0-47.0); Hemoglobin 10.4 g/dL (12.0-15.0); Immature Granulocyte Absolute 0.01 K/mm3 (0.00-0.031); Immature Granulocyte Percent A 0.2 % (0-0.5); Lymphocytes Absolute Auto 2.07 K/mm3 (0.9-3.2); Lymphocytes Percent Auto 35.4 % (18.3-44.2); Mean Corpuscular HGB Conc 32.6 g/dl (32-36); Mean Corpuscular Volume 82.9 fl (80-100); Monocytes Absolute Auto 0.6 K/mm3 (0.1-0.6); Monocytes Percent Auto 9.4 % (2.6-8.5); Neutrophils Absolute Auto 2.7 K/mm3 (1.3-6.7); Neutrophils Percent Auto 45.6 % (45.5-73.1); Platelet Count Result 205 k/mm3 (150-375); Red Blood Count 3.85 M/mm3 (4.2-5.4); Red Cell Distribution Width 14.4 % (11.5-14.5); White Blood Count 5.8 K/mm3 (4.5-10.0)
[2021-03-26 23:18] VITALS: BP 112/74; PULSE 97; RESP 16; O2SAT 100
--- NOTE | 2021-03-26 23:18 | PC.NURSE ---
Assuming care of pt.
[2021-03-26 23:19] LABS: Anion Gap 4 mmol/L (8-16); Blood Urea Nitrogen 10 mg/dL (7-17); Calcium 8.8 mg/dL (8.4-10.2); Carbon Dioxide 30 mmol/L (22-30); Chloride 99 mmol/L (98-107); Estimated Glomerular Filt Rate > 60; Glucose 234 mg/dL (65-110); Potassium 3.8 mmol/L (3.4-5.0); Sodium 133 mmol/L (137-145)
--- NOTE | 2021-03-26 23:37 | ADMGEN ---
This patient, Gem Morales, was admitted to Medical Room 347-. Patient/family oriented to hospital policies and general routines including ID bracelet, bed and alarms, visiting hours, pain management, procedures, bathroom and other care routines, personal items, smoking policy, room service/diet, and visiting hours. Information on how to activate the Rapid Response Team has been discussed. Patient/Family are encouraged to report perceived risks to care and to ask questions if they do not understand what they are told or what they should do.
[2021-03-27] VITALS: BP 129/73; PULSE 94; RESP 20; TEMP 36.2; O2SAT 99; BMI 34.7
[2021-03-27 00:49] VITALS: O2SAT 98
--- NOTE | 2021-03-27 04:39 | PM.IMHP ---
H&P: HPI History of Present Illness Date/Time: 03/27/21 04:39 Chief Complaint: PICC line not working Narrative: 36-year-old female with a past medical history of obesity, hypertension, psoriasis, diabetes, diabetic peripheral neuropathy and left diabetic foot infection presented to the ER with issues with her PICC line not infusing correctly. The patient was hospitalized 03/11/2021 through 03/20/2021 due to a left diabetic foot infection and was found to have osteomyelitis of the proximal 4th phalanx. ID was consulted during her last hospitalization and stated the patient had a 5% chance of medical care with antibiotic therapy but the patient wanted to give a trial for this. Surgery concurred and recommended amputation. The patient wanted to try management with antibiotic therapy. Patient was placed on Primaxin and vancomycin. The plan was to continue antibiotics through 04/22/2021 for MRSA osteomyelitis. She had a PICC line placed on 03/13/2021 for outpatient antibiotic administration. She began having difficulty with infusing antibiotics through the PICC line after PICC line had pulled out slightly and she was evaluated in the ER on 03/23/2021 were Cathflo was administered. However she still continued to have difficulty infusing the antibiotics instead of antibiotics infusing over 20 minutes they were taking 3 hours to infuse. She was on antibiotics 4 times a day. She is also having sluggish return of blood from the PICC line. On the she again started having difficulty with infusing her Primaxin. Her vancomycin infusions without difficulty. Her PICC line appeared to have pulled out further than on previous exam. In the ER she was given another dose of calf flow in the ER this time but the staff was still not able to give blood return from 1 of the lumens and very 1st sluggish return from the other lumen. Staff was able to infuse the medications with a pump in the ER. However, the patient's medical supply company is unable to provide her with a pump. Subsequently the patient has been admitted as observation for placement of a new PICC line. The patient denies any fevers, chills, nausea, vomiting, changes in appetite. She is still having some mild drainage from her foot but it is improved compared to the drainage during her last hospitalization. She has been changing her dressings daily. She is having pain in her foot but was recently evaluated as outpatient and prescribed tramadol. She reports that the tramadol helps significantly with her pain. In the ER the patient's glucoses were elevated at 234. She was started on Lantus, mealtime bolus insulin and metformin at the hospital. She reports that since she has been home her sugars from most part have been running between 120 and 170. She previously at chronically uncontrolled diabetes with her hemoglobin A1c 03/12/2021 of 12.4%. The patient had only been on oral hypoglycemic medications prior to her recent hospitalization. She has only had 1 hypoglycemic episode since discharge from the hospital. She reports she does have some increased hyperglycemia after vancomycin administration since it is mixed with dextrose. Review of Systems Review of Systems: 10 systems were reviewed with pertinent positives and negatives per HPI. Except as documented in the HPI, all other systems were reviewed and are negative. [facility] Past Medical History Medical History (Updated 03/27/21 @ 05:02 by Gertrudis Farah DO) Asthma Diabetes 03/12/2021 hemoglobin A1c 12.4 Diabetic neuropathy GERD (gastroesophageal reflux disease) Hypercholesterolemia Hypertension Kidney stones Obesity (BMI 30.0-34.9) Psoriasis Surgical History Surgical History History of tonsillectomy Family History Family History Grandparent Diabetes mellitus Father Diabetes mellitus Mother Diabetes mellitus Mother Hy
[2021-03-27 06:00] VITALS: BP 116/70; PULSE 101; RESP 20; TEMP 36.2; O2SAT 98
[2021-03-27] MEDS: traMADol HCL (*CRX) 50 MG TABLET PO ×2 (06:15→16:27)
--- NOTE | 2021-03-27 06:29 | PC.NURSE ---
NEHA MESSAGE FOR LISA Reyes ON EXT [id number] REGARDING PICC PLACEMENT ORDER.
[2021-03-27 07:47] LABS: Glucose Point of Care 101 mg/dl (65-105)
--- NOTE | 2021-03-27 08:17 | PC.NURSE ---
Patient refused PICC line, hospitalist Ryan escobar.
[2021-03-27] MEDS: GABAPENTIN 300 MG CAPSULE 600 MG PO ×2 (08:24→12:20)
[2021-03-27] MEDS: metFORMIN HCL 500 MG TABLET 1000 MG PO ×2 (08:24→16:28)
--- NOTE | 2021-03-27 08:30 | PM.IMPN ---
Progress Note: A&P Assessment and Plan (1) Status post peripherally inserted central catheter (PICC) central line placement: Code(s): Z95.828 - Presence of other vascular implants and grafts Status: Acute Assessment and Plan: PICC line is no longer in the superior rate and cava it has migrated to the brachiocephalic junction. Complaints of issues with flow and infusion Tiny extension tubing attached Extension tubing changed out and flow and rate is fine Blood return and flushes fine Chest xray confirms placement Will hold off on replacement PICC for now Antibiotics given at gravity and only took one hour (2) Osteomyelitis: Qualifiers: Laterality: left Osteomyelitis location: foot Osteomyelitis type: unspecified type Qualified Code(s): M86.9 - Osteomyelitis, unspecified Code(s): M86.9 - Osteomyelitis, unspecified Status: Acute Assessment and Plan: Continue Primaxin and vancomycin as previously ordered until 04/22/2021 (3) Septic arthritis: Qualifiers: Septic arthritis location: foot Septic arthritis organism: due to unspecified organism Laterality: left Qualified Code(s): M00.9 - Pyogenic arthritis, unspecified Code(s): M00.9 - Pyogenic arthritis, unspecified Status: Acute Assessment and Plan: As discussed above. 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 Will resume patient's home Lantus and mealtime bolus insulin. moderate dose sliding scale insulin Accu-Cheks a.c. HS She would benefit from instructions on sliding scale insulin on discharge. Additional Plan Working with PICC line Time Spent With Patient Time with patient: Greater than 35 minutes Subjective Date/time seen: 03/27/21 13:58 Interval history: Date/Time: 03/27/21 04:39 Narrative: 36-year-old female with a past medical history of obesity, hypertension, psoriasis, diabetes, diabetic peripheral neuropathy and left diabetic foot infection presented to the ER with issues with her PICC line not infusing correctly. The patient was hospitalized 03/11/2021 through 03/20/2021 due to a left diabetic foot infection and was found to have osteomyelitis of the proximal 4th phalanx. ID was consulted during her last hospitalization and stated the patient had a 5% chance of medical care with antibiotic therapy but the patient wanted to give a trial for this. Surgery concurred and recommended amputation. The patient wanted to try management with antibiotic therapy. Patient was placed on Primaxin and vancomycin. The plan was to continue antibiotics through 04/22/2021 for MRSA osteomyelitis. She had a PICC line placed on 03/13/2021 for outpatient antibiotic administration. She began having difficulty with infusing antibiotics through the PICC line after PICC line had pulled out slightly and she was evaluated in the ER on 03/23/2021 were Cathflo was administered. However she still continued to have difficulty infusing the antibiotics instead of antibiotics infusing over 20 minutes they were taking 3 hours to infuse. She was on antibiotics 4 times a day. She is also having sluggish return of blood from the PICC line. On the she again started having difficulty with infusing her Primaxin. Her vancomycin infusions without difficulty. Her PICC line appeared to have pulled out further than on previous exam. In the ER she was given another dose of calf flow in the ER this time but the staff was still not able to give blood return from 1 of the lumens and very 1st sluggish return from the other lumen. Staff
[2021-03-27] MEDS: INSULIN ASPART (*BKC) 100 UNITS/ML 8 UNITS SUB-Q ×2 (08:40→16:30)
[2021-03-27] MEDS: INSULIN GLARGINE (*BKC) 100 UNITS/ML 22 UNITS SUB-Q (08:40)
[2021-03-27 11:26] LABS: Glucose Point of Care 84 mg/dl (65-105)
[2021-03-27 14:00] VITALS: BP 108/64; PULSE 94; RESP 16; TEMP 36.4; O2SAT 98
[2021-03-27 16:13] LABS: Glucose Point of Care 138 mg/dl (65-105)
[2021-03-27] MEDS: GABAPENTIN 400 MG CAPSULE 1200 MG PO (16:27)
[2021-03-27 21:27] VITALS: BP 107/60; PULSE 87; RESP 12; TEMP 36.9; O2SAT 98
[2021-03-27 21:53] LABS: Glucose Point of Care 124 mg/dl (65-105)
[2021-03-28 05:10] VITALS: BP 116/68; PULSE 94; RESP 12; TEMP 36.8; O2SAT 100
[2021-03-28] MEDS: traMADol HCL (*CRX) 50 MG TABLET PO ×2 (05:33→13:20)
--- NOTE | 2021-03-28 05:36 | PC.NURSE ---
attempt of morning lab draw through both lumens unsuccessful. cathflo order placed.
[2021-03-28] MEDS: ALTEPLASE 2 MG VIAL (CATHFLO) IV PUSH (06:11)
--- NOTE | 2021-03-28 07:20 | PM.DS ---
DS: Admitting Diagnosis Discharge Date Date of service 03/28/2021 at 0720am Admitting Diagnosis Dysfunctional PICC line DS: Discharge Diagnosis Discharge Diagnosis (1) Status post peripherally inserted central catheter (PICC) central line placement: Code(s): Z95.828 - Presence of other vascular implants and grafts Status: Acute Assessment and Plan: PICC line is no longer in the superior rate and cava it has migrated to the brachiocephalic junction. Complaints of issues with flow and infusion Tiny extension tubing attached Extension tubing changed out and flow and rate is fine Blood return and flushes fine Chest xray confirms placement Will hold off on replacement PICC for now Antibiotics given at gravity and only took one hour New PICC line inserted (2) Osteomyelitis: Qualifiers: Laterality: left Osteomyelitis location: foot Osteomyelitis type: unspecified type Qualified Code(s): M86.9 - Osteomyelitis, unspecified Code(s): M86.9 - Osteomyelitis, unspecified Status: Acute Assessment and Plan: Continue Primaxin and vancomycin as previously ordered until 04/22/2021 (3) Septic arthritis: Qualifiers: Laterality: left Septic arthritis location: foot Septic arthritis organism: due to unspecified organism Qualified Code(s): M00.9 - Pyogenic arthritis, unspecified Code(s): M00.9 - Pyogenic arthritis, unspecified Status: Acute Assessment and Plan: As discussed above. (4) Type 2 diabetes mellitus with hyperglycemia: Qualifiers: Diabetes mellitus alf insulin use: unspecified alf insulin use status Qualified Code(s): E11.65 - Type 2 diabetes mellitus with hyperglycemia Code(s): E11.65 - Type 2 diabetes mellitus with hyperglycemia Status: Acute Assessment and Plan: Current glucose 234 With recent addition of insulin use. Will resume patient's home Lantus and mealtime bolus insulin. moderate dose sliding scale insulin Accu-Cheks a.c. HS She would benefit from instructions on sliding scale insulin on discharge. DS: Summary Hospital Course Hospital Course: Patient is a 36-year-old female with a past medical history obesity, hypertension, psoriasis, diabetes, diabetic neuropathy with left diabetic foot infection who presented the ED for evaluation of her PICC line that was not working/. Cathflo was initiated and did work to get blood flow. However that did not last. Patient does use very small extension tubing which was switched with other tubing and it worked fine. However this morning she was not able to get blood return so the PICC line was switched out today. Patient has no complaints today and was feeling fine. When I went into the room she was eating breakfast. Patient denies chest pain, shortness of breath, weakness, fatigue, sweats, fevers, chills. Patient's glucose was also trended throughout the visit and has been stable. Status at Discharge Functional status at discharge: independent ambulation Overall status at discharge: patient is back to baseline Time Spent with Patient Time attestation: Total time spent providing and/or coordinating discharge services: 45 minutes Time spent: Greater than 30 minutes Exam Const: General: cooperative, healthy appearing, no acute distress, well developed, alert and awake Nutritional Appearance: well nourished Orientation/consciousness: patient oriented x3 Limitations: no limitations HENMT: Head: normal to inspection Ears: hearing grossly normal bilaterally General nose exam: Normal external nose present Mouth: Yes Normal oral and palatal mucosa present, Yes lip normal and Yes tongue normal Teeth and gingiva: abnormal tooth and associated gingiva and poor dentition Eyes: General: appearance normal, both eyes and all related structures Neck: Neck: normal visual inspection, full ROM, trachea midline and supple Ches
[2021-03-28 08:07] LABS: Glucose Point of Care 105 mg/dl (65-105)
[2021-03-28] MEDS: metFORMIN HCL 500 MG TABLET 1000 MG PO (09:14)
[2021-03-28] MEDS: INSULIN GLARGINE (*BKC) 100 UNITS/ML 22 UNITS SUB-Q (09:15)
[2021-03-28] MEDS: INSULIN ASPART (*BKC) 100 UNITS/ML 8 UNITS SUB-Q (09:15)
[2021-03-28] MEDS: GABAPENTIN 300 MG CAPSULE 600 MG PO ×2 (09:15→12:03)
[2021-03-28 12:02] LABS: Glucose Point of Care 116 mg/dl (65-105)
== END 2021-03-28 15:59 | disposition home health service (06) ==
LOC: ANHED 22:03 → ANH3MED 03-27 07:30
PROVIDERS: Physician Assistant; Admitting Provider Internal Medicine; Emergency Provider Emergency Medicine; PCP Internal Medicine Gastroenterology; Visit Provider Internal Medicine
DX: T82.898A Other specified complication of vascular prosthetic devices, implants and grafts, initial encounter (principal); M86.9 Osteomyelitis, unspecified; L97.529 Non-pressure chronic ulcer of other part of left foot with unspecified severity; B95.62 Methicillin resistant Staphylococcus aureus infection as the cause of diseases classified elsewhere; E66.9 Obesity, unspecified; E11.42 Type 2 diabetes mellitus with diabetic polyneuropathy; E11.65 Type 2 diabetes mellitus with hyperglycemia; E11.621 Type 2 diabetes mellitus with foot ulcer; I10 Essential (primary) hypertension; L40.9 Psoriasis, unspecified; M00.9 Pyogenic arthritis, unspecified; Z68.34 Body mass index [BMI] 34.0-34.9, adult; Z79.84 Long term (current) use of oral hypoglycemic drugs
CPT/HCPCS: 36415; 36569; 71045; 80048; 82948; 85025; 96365; 96366; 96367; 96368; 96375; 96376; 99285; A9270; C1751; G0378; G0379; J0743; J1815; J2997; J3370; J7040

== ENCOUNTER 2021-03-31 22:15 | Emergency (ER) | payer OTHER, SELFPAY ==
--- NOTE | ~2021-03-31 | XR_ITS ---
XR chest 1V portable 03/31/2021 22:57 Indication: PICC line placement Procedure: AP portable chest Comparison: Comparison to multiple prior studies sequentially, with oldest reviewed study dated 10/2020. Findings: Left subclavian PICC line tip in the SVC. Heart size normal. Subtle right basilar airspace disease. No pleural effusion, edema or pneumothorax. Impression: 1: Subtle right basilar airspace disease which may represent atelectasis or pneumonia. Reviewed, dictated and finalized at location A. MOTIVE POWER ELECTRONICS ENGINEER Impression: 1: Subtle right basilar airspace disease which may represent atelectasis or pne umonia.
[2021-03-31 22:21] VITALS: BP 137/90; PULSE 113; RESP 18; TEMP 36; O2SAT 100
--- NOTE | 2021-03-31 22:57 | PC.NURSE ---
cap removed that patient states is leaking, extension tubing applied to pic line no drainage noted
--- NOTE | 2021-04-01 00:16 | ED.GENADULT ---
HPI - General Adult General Chief complaint: Unspecified Stated complaint: PICC line leakage, clogging Time Seen by Provider: 03/31/21 22:59 Source: patient, RN notes reviewed and old records reviewed Mode of arrival: ambulatory Limitations: no limitations History of Present Illness HPI narrative: This is a 36 year old female with history DM , osteomyelitis of toe who presents for evaluation of dysfunction of her PICC line. She states she had PICC line placed on Monday for her IV antibiotics. She reports today she has some leakage from port in PICC line today. She also reports her home health nurse had difficulty drawing blood from her PICC line and her infusion was running slow. On arrival to ER, nursing staff removed cap that was leaking so there is no more leaking. He is able to flush through both lines. He was unable to draw blood. PAtient came to ER to get Cathflo. Related Data Home Medications Medication Instructions Recorded Confirmed gabapentin 1,200 mg PO DAILY@1700 03/11/21 03/27/21 gabapentin 600 mg PO BID 03/11/21 03/27/21 metformin 1,000 mg PO BID 03/11/21 03/27/21 tramadol 50 mg PO Q8H PRN 03/27/21 03/27/21 Allergies Allergy/AdvReac Type Severity Reaction Status Date / Time No Known Allergies Allergy Unknown Verified 03/26/21 23:48 Review of Systems Review of Systems: All systems reviewed & are unremarkable except as noted in HPI and below PMFSH Past Medical History Medical History Asthma Diabetes 03/12/2021 hemoglobin A1c 12.4 Diabetic neuropathy GERD (gastroesophageal reflux disease) Hypercholesterolemia Hypertension Kidney stones Obesity (BMI 30.0-34.9) Psoriasis Surgical History Surgical History History of tonsillectomy Family History Family History Grandparent Diabetes mellitus Father Diabetes mellitus Mother Diabetes mellitus Mother Hypertension Social History Social History (Updated 03/27/21 @ 06:54 by Gertrudis Farah DO) Social History: She lives at home with 19-year-old and 14-year-old children. As well as her mother. 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 Smoking status: Never smoker Alcohol intake: current Drinks per week: 1 Substance use: never Gender identity (if verbalized by the patient): Female Spiritual care concerns: No Exam Narrative: GENERAL: Well-appearing, well-nourished, and in no acute distress. HEAD: Normocephalic, atraumatic EYES: and EOMI, conjunctiva clear without discharge NECK: Supple, without lymphadenopathy or mass RESPIRATORY: No respiratory distress, Airway patent, Respirations non-labored, Clear to auscultation without rales, rhonchi or wheeze HEART: Regular rate and rhythm. No murmur heard. Normal peripheral pulses. ABDOMEN: Soft, nontender, nondistended, normal active bowel sounds. No masses. No rebound or guarding, No organomegaly. EXTREMITIES: left foot wrapped in bandage; PICC line in placed in left arm, no leakage, no erythema, SKIN: Warm, dry, normal color without rash NEURO: Alert and oriented x3. CN 2-12 grossly intact. No focal deficits. PSYCH: Normal mood and affect. Course Reevaluation(s) Reevaluation #1: Nursing staff reports both lines in PICC line are now working and drawing blood. Patient's PICC line tip in SVC . She will be discharged home Date: 04/01/21 Time: 03:18 Vital Signs Vital signs: Vital Signs Temperature 96.8 F L 03/31/21 22:21 Pulse Rate 113 H 03/31/21 22:21 Respiratory Rate 18 03/31/21 22:21 Blood Pressure 137/90 03/31/21 22:21 Pulse Oximetry 100 03/31/21 22:21 Temperature 96.8 F L 03/31/21 22:21 Pulse Rate 87 04/01/21 03:12 Respiratory Rate 16 04/01/21 03:12 Blood Pressure 121/76 04/01/21 03:12 Pulse O
[2021-04-01] MEDS: ALTEPLASE 2 MG VIAL (CATHFLO) IV PUSH ×2 (00:55→00:56)
[2021-04-01] MEDS: WATER, STERILE FOR INJECTION 10 ML VIAL XX (00:57)
--- NOTE | 2021-04-01 03:10 | PC.NURSE ---
6cc blood withdrew after cathflo treatment to both ports left pic line, both ports flushed with 20cc saline flush
[2021-04-01 03:12] VITALS: BP 121/76; PULSE 87; RESP 16; O2SAT 98
== END 2021-04-01 03:27 | disposition home or self-care (01) ==
PROVIDERS: Emergency Provider General Practice; PCP Internal Medicine Gastroenterology
DX: T82.594A Other mechanical complication of infusion catheter, initial encounter (principal); M86.172 Other acute osteomyelitis, left ankle and foot; E11.40 Type 2 diabetes mellitus with diabetic neuropathy, unspecified; E66.9 Obesity, unspecified; Z68.37 Body mass index [BMI] 37.0-37.9, adult; E78.00 Pure hypercholesterolemia, unspecified; K21.9 Gastro-esophageal reflux disease without esophagitis; Z87.442 Personal history of urinary calculi; R91.8 Other nonspecific abnormal finding of lung field; Z79.4 Long term (current) use of insulin; Z79.84 Long term (current) use of oral hypoglycemic drugs
CPT/HCPCS: 36593; 37195; 71045; 99283; J2997

== ENCOUNTER 2021-04-06 20:20 | Emergency (ER) | payer OTHER, SELFPAY ==
[2021-04-06 20:31] VITALS: BP 126/70; PULSE 100; RESP 16; TEMP 36.6; O2SAT 99
--- NOTE | 2021-04-06 21:39 | ED.GENADULT ---
HPI - General Adult General Chief complaint: Unspecified Stated complaint: PICC needs flushed Time Seen by Provider: 04/06/21 21:16 History of Present Illness HPI narrative: Patient is a 36-year-old female who presents to emergency department with complaint of PICC line issue. Patient reports that she has osteomyelitis in her left foot and is currently receiving IV antibiotics. The patient states that the PICC line about every 4 days gets clogged and that she has to get the PICC line cleared. The patient states she is not having any other complaints reports that her antibiotic took about 2-1/2 hours versus 1 hour to run. Patient denies chest pain denies fever reports the foot is getting better. Related Data Home Medications Medication Instructions Recorded Confirmed gabapentin 1,200 mg PO DAILY@1700 03/11/21 04/06/21 gabapentin 600 mg PO BID 03/11/21 04/06/21 metformin 1,000 mg PO BID 03/11/21 04/06/21 tramadol 50 mg PO Q8H PRN 03/27/21 04/06/21 Allergies Allergy/AdvReac Type Severity Reaction Status Date / Time No Known Allergies Allergy Unknown Verified 04/06/21 20:54 Review of Systems Review of Systems: A 10 system review of systems was completed on the patient and is negative except for what is stated in the HPI. Nursing and ancillary documentation was reviewed. [facility] Past Medical History Medical History Asthma Diabetes 03/12/2021 hemoglobin A1c 12.4 Diabetic neuropathy GERD (gastroesophageal reflux disease) Hypercholesterolemia Hypertension Kidney stones Obesity (BMI 30.0-34.9) Psoriasis Surgical History Surgical History History of tonsillectomy Family History Family History Grandparent Diabetes mellitus Father Diabetes mellitus Mother Diabetes mellitus Mother Hypertension Social History Social History Social History: She lives at home with 19-year-old and 14-year-old children. As well as her mother. 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 Smoking status: Never smoker Alcohol intake: current Drinks per week: 1 Substance use: never Gender identity (if verbalized by the patient): Female Spiritual care concerns: No Exam Narrative: GENERAL: Well-appearing, well-nourished, and in no acute distress. HEAD: Normocephalic, atraumatic. EYES: PERRLA and EOMI. ENT: Nares clear, no rhinorrhea or epistaxis. Mucous membranes moist. NECK: Supple. CHEST: Clear to auscultation. No respiratory distress. HEART: Regular rate and rhythm. No murmur heard. Normal peripheral pulses. ABDOMEN: Soft, nontender, nondistended, normal active bowel sounds. EXTREMITIES: Normal range of motion. No edema. There is a PICC line present in the left upper extremity SKIN: Warm, dry, no rash. NEURO: No focal deficits. Alert and oriented x3. PSYCH: Normal mood and affect. Course Vital Signs Vital signs: Vital Signs Temperature 36.6 C 04/06/21 20:31 Pulse Rate 100 04/06/21 20:31 Respiratory Rate 16 04/06/21 20:31 Blood Pressure 126/70 04/06/21 20:31 Pulse Oximetry 99 04/06/21 20:31 Temperature 36.6 C 04/06/21 20:31 Pulse Rate 101 H 04/06/21 23:28 Respiratory Rate 18 04/06/21 23:28 Blood Pressure 129/88 04/06/21 23:28 Pulse Oximetry 98 04/06/21 23:28 Medical Decision Making Vital Signs Vital Signs: Vital Signs Temperature 36.6 C 04/06/21 20:31 Pulse Rate 100 04/06/21 20:31 Respiratory Rate 16 04/06/21 20:31 Blood Pressure 126/70 04/06/21 20:31 Pulse Oximetry 99 04/06/21 20:31 Temperature 36.6 C 04/06/21 20:31 Pulse Rate 101 H 04/06/21 23:28 Respiratory Rate 18 04/06/21 23:28 Blood Pressure 129/88
[2021-04-06] MEDS: ALTEPLASE 2 MG VIAL (CATHFLO) IV PUSH ×2 (22:03→22:04)
--- NOTE | 2021-04-06 22:11 | PC.NURSE ---
CathFlo inserted, labeled per policy. Pt educated on Cathflo. Prior to administration, PICC line flushed sluggishly, no blood return noted. Reassess in two hours.
[2021-04-06 23:28] VITALS: BP 129/88; PULSE 101; RESP 18; O2SAT 98
--- NOTE | 2021-04-07 00:28 | PC.NURSE ---
PICC line flushed successfully at this time.
[2021-04-07 00:36] VITALS: BP 121/87; PULSE 102; RESP 16; O2SAT 98
== END 2021-04-07 00:37 | disposition home or self-care (01) ==
PROVIDERS: Emergency Provider Emergency Medicine; PCP Internal Medicine Gastroenterology
DX: T82.898A Other specified complication of vascular prosthetic devices, implants and grafts, initial encounter (principal); J45.909 Unspecified asthma, uncomplicated; E11.9 Type 2 diabetes mellitus without complications; Z79.84 Long term (current) use of oral hypoglycemic drugs; K21.9 Gastro-esophageal reflux disease without esophagitis; E78.5 Hyperlipidemia, unspecified; I10 Essential (primary) hypertension; Z87.442 Personal history of urinary calculi
CPT/HCPCS: 96374; 99284; J2997

== ENCOUNTER 2021-04-07 15:14 | Outpatient (CLI) | payer OTHER, SELFPAY ==
--- NOTE | ~2021-04-07 | XR_ITS ---
EXAMINATION: XR foot LT 2V EXAM DATE: 04/07/2021 15:25 INDICATION: M86.172 - Other acute osteomyelitis, left ankle and foot. TECHNIQUE: Left foot frontal and lateral projections. Comparison is made to prior examination from 05/11/2020. FINDINGS: Again there is abnormal appearance to the left 5th phalanx, with both erosive change along the medial cortex and also interval development of sclerosis of this bone, healing response. Appearan ce is consistent with subacute osteomyelitis. No erosions of other bones. There may be some swelling over the forefoot. There are no acute fractures identified. Small posterior and inferior calcaneal sp urs. IMPRESSION: Left 4th proximal phalangeal subacute osteomyelitis. Reviewed, dictated and finalized at location A. [employer]
== END 2021-04-07 15:15 | disposition home or self-care (01) ==
LOC: ANHIMG 15:16
PROVIDERS: PCP Internal Medicine Gastroenterology; Visit Provider Surgery
DX: M86.172 Other acute osteomyelitis, left ankle and foot (principal); M77.32 Calcaneal spur, left foot
CPT/HCPCS: 73620

== ENCOUNTER 2021-04-08 10:56 | Emergency (ER) | payer OTHER, SELFPAY ==
[2021-04-08 11:04] VITALS: BP 127/86; PULSE 88; RESP 20; O2SAT 98
--- NOTE | 2021-04-08 11:44 | ED.GENADULT ---
HPI - General Adult General Chief complaint: Unspecified Stated complaint: PICC not working Time Seen by Provider: 04/08/21 11:44 Source: patient Mode of arrival: ambulatory Limitations: no limitations History of Present Illness HPI narrative: The patient is a 36-year-old female who presents to emergency department with complaint of PICC line being clogged. Patient has a history of osteomyelitis in her left foot and is currently receiving IV antibiotics through this. Patient with recent PICC line clogged and visit to this ER with resolution approximately one week ago. Pt states that her PICC line is clogged again. This is her fourth visit for this where she requires the cath flow. She denies any arm pain, redness, swelling. No numbness or weakness. She denies chest pain. No fever or chills. Foot seems to be improving to her. Pt is quite frustrated that there is not a way for this to be remedied outside of the ER. Pt states initially she had a left arm PICC line but had similar issues, and it was moved to her right arm. Related Data Home Medications Medication Instructions Recorded Confirmed gabapentin 1,200 mg PO DAILY@1700 03/11/21 04/06/21 gabapentin 600 mg PO BID 03/11/21 04/06/21 metformin 1,000 mg PO BID 03/11/21 04/06/21 tramadol 50 mg PO Q8H PRN 03/27/21 04/06/21 Allergies Allergy/AdvReac Type Severity Reaction Status Date / Time No Known Allergies Allergy Unknown Verified 04/06/21 20:54 Review of Systems Review of Systems: CONSTITUTIONAL: Denies fever CARDIOVASCULAR: Denies chest pain RESPIRATORY: Denies cough or dyspnea. GASTROINTESTINAL: Denies abdominal pain SKIN: Denies rash MUSCULOSKELETAL: Denies back pain NEUROLOGIC: Denies headache REPLACED BY [facility] Past Medical History Medical History Asthma Diabetes 03/12/2021 hemoglobin A1c 12.4 Diabetic neuropathy GERD (gastroesophageal reflux disease) Hypercholesterolemia Hypertension Kidney stones Obesity (BMI 30.0-34.9) Psoriasis Surgical History Surgical History History of tonsillectomy Family History Family History Grandparent Diabetes mellitus Father Diabetes mellitus Mother Diabetes mellitus Mother Hypertension Social History Social History Social History: She lives at home with 19-year-old and 14-year-old children. As well as her mother. 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 Smoking status: Never smoker Alcohol intake: current Drinks per week: 1 Substance use: never Gender identity (if verbalized by the patient): Female Spiritual care concerns: No Exam Narrative: GENERAL: Awake, alert, conversant HEAD: Normocephalic, atraumatic. EYES: PERRLA and EOMI. ENT: Nares clear, no rhinorrhea or epistaxis. Mucous membranes moist. NECK: Supple. CHEST: No respiratory distress, breathing even and non labored HEART: Regular rate, sinus rhythm ABDOMEN:Non distended, non tender EXTREMITIES: Normal range of motion. No edema. PICC line present left upper extremity. No induration, erythema or pain at the site. Radial pulse 2+. Intact sensation m/u/r nerve distribution. SKIN: Warm, dry, no rash. NEURO:No focal deficits. Alert and oriented x3 Course Vital Signs Vital signs: Vital Signs Pulse Rate 88 04/08/21 11:04 Respiratory Rate 20 04/08/21 11:04 Blood Pressure 127/86 04/08/21 11:04 Pulse Oximetry 98 04/08/21 11:04 Pulse Rate 88 04/08/21 11:04 Respiratory Rate 20 04/08/21 11:04 Blood Pressure 127/86 04/08/21 11:04 Pulse Oximetry 98 04/08/21 11:04 Medical Decision Making MDM Narrative Medical decision making narrative: Patient presents for occlusion of PICC line. At the time of assessment, ABCs are
[2021-04-08] MEDS: ALTEPLASE 2 MG VIAL (CATHFLO) IV PUSH (12:45)
--- NOTE | 2021-04-08 14:46 | PC.NURSE ---
After pt 2 hours of cath flow, pt PICC line was drawn 5ml of blood each, and flushed without resistance
== END 2021-04-08 15:40 | disposition home or self-care (01) ==
PROVIDERS: Emergency Provider Emergency Medicine; PCP Internal Medicine Gastroenterology
DX: T82.898A Other specified complication of vascular prosthetic devices, implants and grafts, initial encounter (principal); E11.40 Type 2 diabetes mellitus with diabetic neuropathy, unspecified; E78.00 Pure hypercholesterolemia, unspecified; I10 Essential (primary) hypertension; E66.9 Obesity, unspecified; Z87.09 Personal history of other diseases of the respiratory system; Z87.19 Personal history of other diseases of the digestive system; Z87.442 Personal history of urinary calculi; Z90.89 Acquired absence of other organs
CPT/HCPCS: 96374; 99281; 99284; J2997

== ENCOUNTER 2021-04-08 22:17 | Emergency (ER) | payer OTHER, SELFPAY ==
[2021-04-08 22:20] VITALS: BP 123/86; PULSE 96; RESP 20; TEMP 36.5; O2SAT 100
--- NOTE | 2021-04-08 23:39 | PC.NURSE ---
patient states she was here earlier today and is still unable to flush one of her ports. RN able to flush port without difficulty
--- NOTE | 2021-04-08 23:54 | ED.GENADULT ---
HPI - General Adult General Chief complaint: Unspecified Stated complaint: PICC Line not flushing Time Seen by Provider: 04/08/21 23:39 History of Present Illness HPI narrative: Patient is a 36-year-old female presents emerged from with chief complaint of catheter not flushing. Patient states she has a PICC line in her left upper extremity is receiving IV antibiotics and reports this evening it was difficult for it to flush. Patient is seen in emergency department earlier today received TPA to unclog the port. The patient states his evening the 2nd port was flushing well. Related Data Home Medications Medication Instructions Recorded Confirmed gabapentin 1,200 mg PO DAILY@1700 03/11/21 04/06/21 gabapentin 600 mg PO BID 03/11/21 04/06/21 metformin 1,000 mg PO BID 03/11/21 04/06/21 tramadol 50 mg PO Q8H PRN 03/27/21 04/06/21 Allergies Allergy/AdvReac Type Severity Reaction Status Date / Time No Known Allergies Allergy Unknown Verified 04/06/21 20:54 Review of Systems Review of Systems: A 10 system review of systems was completed on the patient and is negative except for what is stated in the HPI. Nursing and ancillary documentation was reviewed. [facility] Past Medical History Medical History Asthma Diabetes 03/12/2021 hemoglobin A1c 12.4 Diabetic neuropathy GERD (gastroesophageal reflux disease) Hypercholesterolemia Hypertension Kidney stones Obesity (BMI 30.0-34.9) Psoriasis Surgical History Surgical History History of tonsillectomy Family History Family History Grandparent Diabetes mellitus Father Diabetes mellitus Mother Diabetes mellitus Mother Hypertension Social History Social History Social History: She lives at home with 19-year-old and 14-year-old children. As well as her mother. 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 Smoking status: Never smoker Alcohol intake: current Drinks per week: 1 Substance use: never Gender identity (if verbalized by the patient): Female Spiritual care concerns: No Exam Narrative: GENERAL: Well-appearing, well-nourished, and in no acute distress. HEAD: Normocephalic, atraumatic. EYES: PERRLA and EOMI. ENT: Nares clear, no rhinorrhea or epistaxis. Mucous membranes moist. NECK: Supple. CHEST: Clear to auscultation. No respiratory distress. HEART: Regular rate and rhythm. No murmur heard. Normal peripheral pulses. ABDOMEN: Soft, nontender, nondistended, normal active bowel sounds. EXTREMITIES: Normal range of motion. No edema. There is a PICC line present in the left upper extremity SKIN: Warm, dry, no rash. NEURO: No focal deficits. Alert and oriented x3. PSYCH: Normal mood and affect. Course Course Emergency Course: The PICC line flushed without difficulty by two nurses. Vital Signs Vital signs: Vital Signs Temperature 36.5 C 04/08/21 22:20 Pulse Rate 96 04/08/21 22:20 Respiratory Rate 20 04/08/21 22:20 Blood Pressure 123/86 04/08/21 22:20 Pulse Oximetry 100 04/08/21 22:20 Temperature 36.5 C 04/08/21 22:20 Pulse Rate 96 04/08/21 22:20 Respiratory Rate 20 04/08/21 22:20 Blood Pressure 123/86 04/08/21 22:20 Pulse Oximetry 100 04/08/21 22:20 Medical Decision Making Vital Signs Vital Signs: Vital Signs Temperature 36.5 C 04/08/21 22:20 Pulse Rate 96 04/08/21 22:20 Respiratory Rate 20 04/08/21 22:20 Blood Pressure 123/86 04/08/21 22:20 Pulse Oximetry 100 04/08/21 22:20 Temperature 36.5 C 04/08/21 22:20 Pulse Rate 96 04/08/21 22:20 Respiratory Rate 20 04/08/21 22:20 Blood Pressure 123/86 04/08/21 22:20 Pulse Oximetry 100 04/08/21 22:20
== END 2021-04-09 00:04 | disposition home or self-care (01) ==
PROVIDERS: Emergency Provider Emergency Medicine; PCP Internal Medicine Gastroenterology
DX: Z45.2 Encounter for adjustment and management of vascular access device (principal); E11.40 Type 2 diabetes mellitus with diabetic neuropathy, unspecified; E78.00 Pure hypercholesterolemia, unspecified; I10 Essential (primary) hypertension; E66.9 Obesity, unspecified; Z87.09 Personal history of other diseases of the respiratory system; Z87.19 Personal history of other diseases of the digestive system; Z87.442 Personal history of urinary calculi
CPT/HCPCS: 99281

== ENCOUNTER 2021-04-09 11:37 | Outpatient (NON) | payer OTHER, SELFPAY ==
[2021-04-09 12:17] LABS: Basophils Absolute Auto 0.1 K/mm3 (0.0-0.1); Basophils Percent Auto 1.1 % (0.2-1.2); Eosinophils Absolute Auto 0.6 K/mm3 (0-0.3); Eosinophils Percent Auto 8.6 % (0-4.4); Hematocrit 33.4 % (37.0-47.0); Hemoglobin 10.8 g/dL (12.0-15.0); Immature Granulocyte Absolute 0.03 K/mm3 (0.00-0.031); Immature Granulocyte Percent A 0.4 % (0-0.5); Lymphocytes Absolute Auto 2.24 K/mm3 (0.9-3.2); Lymphocytes Percent Auto 31.4 % (18.3-44.2); Mean Corpuscular HGB Conc 32.3 g/dl (32-36); Mean Corpuscular Hemoglobin 26.9 pg (26-34); Mean Corpuscular Volume 83.1 fl (80-100); Mean Platelet Volume 10.3 fl (7.4-10.4); Monocytes Absolute Auto 0.8 K/mm3 (0.1-0.6); Monocytes Percent Auto 10.7 % (2.6-8.5); Neutrophils Absolute Auto 3.4 K/mm3 (1.3-6.7); Neutrophils Percent Auto 47.8 % (45.5-73.1); Platelet Count Result 257 k/mm3 (150-375); Red Blood Count 4.02 M/mm3 (4.2-5.4); Red Cell Distribution Width 14.5 % (11.5-14.5); White Blood Count 7.1 K/mm3 (4.5-10.0)
== END 2021-04-09 11:38 | disposition home or self-care (01) ==
LOC: HOME HLTH 11:42
PROVIDERS: PCP Internal Medicine Gastroenterology; Visit Provider Internal Medicine Gastroenterology
DX: L02.12 Furuncle of neck (principal); M86.172 Other acute osteomyelitis, left ankle and foot
CPT/HCPCS: 85025

== ENCOUNTER 2021-04-11 21:18 | Emergency (ER) | payer OTHER, SELFPAY ==
[2021-04-11 21:32] VITALS: BP 133/80; PULSE 99; RESP 18; TEMP 35.8; O2SAT 98
--- NOTE | 2021-04-12 01:20 | ED.GENADULT ---
HPI - General Adult General Chief complaint: Unspecified Stated complaint: picc line running slow again Time Seen by Provider: 04/12/21 00:07 Source: patient History of Present Illness HPI narrative: Patient has a PICC line for IV antibiotics due to osteomyelitis. Reports it frequently runs low when administering her antibiotics. Reports she has frequently had come to the ER for the situation she usually Cathflo and her device works for the next 4 to 7 days after return to the ER. She she has a time to contact her PICC team multiple times. Related Data Home Medications Medication Instructions Recorded Confirmed gabapentin 1,200 mg PO DAILY@1700 03/11/21 04/06/21 gabapentin 600 mg PO BID 03/11/21 04/06/21 metformin 1,000 mg PO BID 03/11/21 04/06/21 tramadol 50 mg PO Q8H PRN 03/27/21 04/06/21 Allergies Allergy/AdvReac Type Severity Reaction Status Date / Time No Known Allergies Allergy Unknown Verified 04/11/21 21:35 Review of Systems Review of Systems: CONSTITUTIONAL: Denies fever, chills, or sweats. EYES: Denies visual changes, redness, or discharge. ENT: Denies rhinorrhea, congestion, sore throat, or otalgia. CARDIOVASCULAR: Denies chest pain, palpitations, or edema. RESPIRATORY: Denies cough or dyspnea. GASTROINTESTINAL: Denies abdominal pain, nausea, vomiting, or diarrhea. GENITOURINARY: Denies dysuria or hematuria. SKIN: Denies rash or itching. MUSCULOSKELETAL: Denies back pain, joint pain, or myalgia. NEUROLOGIC: Denies headache, numbness, dizziness, or weakness. PSYCHIATRIC: Denies anxiety or depression. All systems reviewed & are unremarkable except as noted in HPI and below [facility] Past Medical History Medical History Asthma Diabetes 03/12/2021 hemoglobin A1c 12.4 Diabetic neuropathy GERD (gastroesophageal reflux disease) Hypercholesterolemia Hypertension Kidney stones Obesity (BMI 30.0-34.9) Psoriasis Surgical History Surgical History History of tonsillectomy Family History Family History Grandparent Diabetes mellitus Father Diabetes mellitus Mother Diabetes mellitus Mother Hypertension Social History Social History Social History: She lives at home with 19-year-old and 14-year-old children. As well as her mother. 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 Smoking status: Never smoker Alcohol intake: current Drinks per week: 1 Substance use: never Gender identity (if verbalized by the patient): Female Spiritual care concerns: No Exam Narrative: GENERAL: Well-appearing, well-nourished, and in no acute distress. HEAD: Normocephalic, atraumatic. EYES: PERRLA and EOMI. ENT: Nares clear, no rhinorrhea or epistaxis. Mucous membranes moist. NECK: Supple. No masses. No JVD EXTREMITIES: Normal range of motion. No edema. SKIN: Warm, dry, no rash. NEURO: No focal deficits. Alert and oriented x3. PSYCH: Normal mood and affect. Course Vital Signs Vital signs: Vital Signs Temperature 35.8 C L 04/11/21 21:32 Pulse Rate 99 04/11/21 21:32 Respiratory Rate 18 04/11/21 21:32 Blood Pressure 133/80 04/11/21 21:32 Pulse Oximetry 98 04/11/21 21:32 Temperature 35.8 C L 04/11/21 21:32 Pulse Rate 100 04/12/21 04:47 Respiratory Rate 18 04/12/21 04:47 Blood Pressure 129/89 04/12/21 04:47 Pulse Oximetry 96 04/12/21 04:47 Medical Decision Making [facility] Narrative Medical decision making narrative: H&P as above, vss, pt looks clinically well, exam reassuring, labs/img considered, symptomatic relief available as needed, patient was treated with Cathflo.Through this PICC line remains of unclear etiology however seems to be functioning outpatient is appropriate for c
[2021-04-12] MEDS: ALTEPLASE 2 MG VIAL (CATHFLO) IV PUSH ×2 (02:39→02:43)
[2021-04-12 04:47] VITALS: BP 129/89; PULSE 100; RESP 18; O2SAT 96
--- NOTE | 2021-04-12 04:53 | PC.NURSE ---
0440 blood return from both ports left picc line each port flushed with 10cc ns easily.
== END 2021-04-12 04:57 | disposition home or self-care (01) ==
PROVIDERS: Emergency Provider Emergency Medicine; PCP Internal Medicine Gastroenterology
DX: T82.868A Thrombosis due to vascular prosthetic devices, implants and grafts, initial encounter (principal); M86.9 Osteomyelitis, unspecified; E11.9 Type 2 diabetes mellitus without complications; Z79.84 Long term (current) use of oral hypoglycemic drugs; K21.9 Gastro-esophageal reflux disease without esophagitis; J45.909 Unspecified asthma, uncomplicated; E78.5 Hyperlipidemia, unspecified; I10 Essential (primary) hypertension; Z87.442 Personal history of urinary calculi
CPT/HCPCS: 36593; 96374; 99284; J2997

== ENCOUNTER 2021-04-12 10:00 | Outpatient (NON) | payer OTHER, SELFPAY ==
[2021-04-12 10:23] LABS: Alanine Aminotransferase 30 U/L (4-35); Albumin Level 3.7 g/dL (3.5-5.1); Alkaline Phosphatase 71 U/L (38-126); Anion Gap 7 mmol/L (8-16); Aspartate Amino Transferase 41 U/L (14-36); Bilirubin,Total 0.3 mg/dL (0.2-1.3); Blood Urea Nitrogen 11 mg/dL (7-17); Calcium 8.9 mg/dL (8.4-10.2); Carbon Dioxide 26 mmol/L (22-30); Chloride 103 mmol/L (98-107); Estimated Glomerular Filt Rate > 60; Glucose 94 mg/dL (65-110); Potassium 3.3 mmol/L (3.4-5.0); Sodium 136 mmol/L (137-145)
[2021-04-12 10:28] LABS: Basophils Absolute Auto 0.1 K/mm3 (0.0-0.1); Basophils Percent Auto 1.4 % (0.2-1.2); Eosinophils Absolute Auto 0.6 K/mm3 (0-0.3); Eosinophils Percent Auto 7.4 % (0-4.4); Hematocrit 32.5 % (37.0-47.0); Hemoglobin 10.3 g/dL (12.0-15.0); Immature Granulocyte Absolute 0.03 K/mm3 (0.00-0.031); Immature Granulocyte Percent A 0.4 % (0-0.5); Lymphocytes Absolute Auto 3.46 K/mm3 (0.9-3.2); Lymphocytes Percent Auto 43.7 % (18.3-44.2); Mean Corpuscular HGB Conc 31.7 g/dl (32-36); Mean Corpuscular Hemoglobin 26.4 pg (26-34); Mean Corpuscular Volume 83.3 fl (80-100); Mean Platelet Volume 10.3 fl (7.4-10.4); Monocytes Percent Auto 12.9 % (2.6-8.5); Neutrophils Absolute Auto 2.7 K/mm3 (1.3-6.7); Neutrophils Percent Auto 34.2 % (45.5-73.1); Platelet Count Result 277 k/mm3 (150-375); Red Cell Distribution Width 14.6 % (11.5-14.5); White Blood Count 7.9 K/mm3 (4.5-10.0)
[2021-04-12 12:04] LABS: Vancomycin Trough 7.5 ug/mL (10.0-20.0)
[2021-04-12 13:45] LABS: Erythrocyte Sedimentation Rate 31 mm/hr (0-20)
== END 2021-04-12 10:01 | disposition home or self-care (01) ==
LOC: HOME HLTH 10:03
PROVIDERS: PCP Internal Medicine Gastroenterology; Visit Provider Internal Medicine
DX: L02.212 Cutaneous abscess of back [any part, except buttock and flank] (principal); M86.172 Other acute osteomyelitis, left ankle and foot
CPT/HCPCS: 80053; 80202; 85025; 85652; 86140

== ENCOUNTER 2021-04-16 20:41 | Emergency (ER) | payer OTHER, SELFPAY ==
[2021-04-16 20:46] VITALS: BP 139/81; PULSE 100; RESP 20; TEMP 36.3; O2SAT 100
--- NOTE | 2021-04-16 21:15 | PC.NURSE ---
Charge nurse to wr to update all waiting pts on delay.
--- NOTE | 2021-04-16 22:36 | PC.NURSE ---
Pt seen by Dr. Monteiro in triage room.
--- NOTE | 2021-04-16 22:36 | ED.GENADULT ---
HPI - General Adult General Chief complaint: Unspecified Stated complaint: Picc line running slow Time Seen by Provider: 04/16/21 22:36 Source: patient Mode of arrival: ambulatory Limitations: no limitations History of Present Illness HPI narrative: Patient is a 36-year-old female with a history of diabetes, osteomyelitis, currently receiving antibiotics on PICC line in her left upper extremity, who presents for evaluation of a slowed rate of antibiotic administration through her PICC line. Patient states it is taking 2 to 3 hours to administer her antibiotic. Patient states that usually when this happens, it means that she is going to have complete occlusion without ability to administer antibiotic within the next day or so. Patient denies any arm pain or wrist pain. Patient has worked through [employer] last week with my visit with her, but she currently does not have any access to [employer] through [employer]. Related Data Home Medications Medication Instructions Recorded Confirmed gabapentin 1,200 mg PO DAILY@1700 03/11/21 04/06/21 gabapentin 600 mg PO BID 03/11/21 04/06/21 metformin 1,000 mg PO BID 03/11/21 04/06/21 tramadol 50 mg PO Q8H PRN 03/27/21 04/06/21 Allergies Allergy/AdvReac Type Severity Reaction Status Date / Time No Known Allergies Allergy Unknown Verified 04/16/21 20:49 Review of Systems Review of Systems: CONSTITUTIONAL: Denies fever CARDIOVASCULAR: Denies chest pain RESPIRATORY: Denies cough or dyspnea. GASTROINTESTINAL: Denies abdominal pain SKIN: Denies rash MUSCULOSKELETAL: Denies back pain NEUROLOGIC: Denies headache [facility] Past Medical History Medical History Asthma Diabetes 03/12/2021 hemoglobin A1c 12.4 Diabetic neuropathy GERD (gastroesophageal reflux disease) Hypercholesterolemia Hypertension Kidney stones Obesity (BMI 30.0-34.9) Psoriasis Surgical History Surgical History History of tonsillectomy Family History Family History Grandparent Diabetes mellitus Father Diabetes mellitus Mother Diabetes mellitus Mother Hypertension Social History Social History Social History: She lives at home with 19-year-old and 14-year-old children. As well as her mother. 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 Smoking status: Never smoker Alcohol intake: current Drinks per week: 1 Substance use: never Gender identity (if verbalized by the patient): Female Spiritual care concerns: No Exam Narrative: GENERAL: Awake, alert, conversant HEAD: Normocephalic, atraumatic. EYES: PERRLA and EOMI. ENT: Nares clear, no rhinorrhea or epistaxis. Mucous membranes moist. NECK: Supple. CHEST: No respiratory distress, breathing even and non labored HEART: Regular rate, sinus rhythm ABDOMEN:Non distended, non tender EXTREMITIES: Normal range of motion. No edema. PICC line left upper extremity. SKIN: Warm, dry, no rash. NEURO:No focal deficits. Alert and oriented x3 Course Vital Signs Vital signs: Vital Signs Temperature 36.3 C L 04/16/21 20:46 Pulse Rate 100 04/16/21 20:46 Respiratory Rate 20 04/16/21 20:46 Blood Pressure 139/81 04/16/21 20:46 Pulse Oximetry 100 04/16/21 20:46 Temperature 36.3 C L 04/16/21 20:46 Pulse Rate 100 04/16/21 20:46 Respiratory Rate 20 04/16/21 20:46 Blood Pressure 139/81 04/16/21 20:46 Pulse Oximetry 100 04/16/21 20:46 Medical Decision Making MDM Narrative Medical decision making narrative: Patient here for evaluation of PICC line which may be consistent with partial occlusion, however when tested at bedside with nursing staff, PICC line is flushing appropriately. Patient states that it runs very slowly on her pump
--- NOTE | 2021-04-16 22:41 | PC.NURSE ---
Pt denies pain, sob, and chest pain. Pt picc line running slow and would like it to be flushed.
[2021-04-16] MEDS: ALTEPLASE 2 MG VIAL (CATHFLO) IV PUSH ×2 (23:13→23:19)
--- NOTE | 2021-04-16 23:58 | PC.NURSE ---
Seen in wr talking with other patients, no s/s of distress noted. awaiting cath-giovanny instill time of 2 hours at 0110.
[2021-04-17 01:17] VITALS: BP 128/86; PULSE 96; RESP 18; O2SAT 100
== END 2021-04-17 01:36 | disposition home or self-care (01) ==
LOC: ANHED 23:26
PROVIDERS: Emergency Provider Emergency Medicine; PCP Internal Medicine Gastroenterology
DX: T82.868A Thrombosis due to vascular prosthetic devices, implants and grafts, initial encounter (principal); M86.9 Osteomyelitis, unspecified; J45.909 Unspecified asthma, uncomplicated; E11.40 Type 2 diabetes mellitus with diabetic neuropathy, unspecified; K21.9 Gastro-esophageal reflux disease without esophagitis; E78.00 Pure hypercholesterolemia, unspecified; I10 Essential (primary) hypertension; Z87.442 Personal history of urinary calculi; E66.9 Obesity, unspecified; Z68.37 Body mass index [BMI] 37.0-37.9, adult; Z79.4 Long term (current) use of insulin
CPT/HCPCS: 36593; 96374; 99284; J2997

== ENCOUNTER 2021-04-19 19:47 | Emergency (ER) | payer OTHER, SELFPAY ==
[2021-04-19 19:56] VITALS: BP 134/76; PULSE 114; RESP 16; TEMP 36.2; O2SAT 100
--- NOTE | 2021-04-20 | ED.GENADULT ---
HPI - General Adult General Chief complaint: Unspecified Stated complaint: PICC line issue Time Seen by Provider: 04/19/21 23:53 Source: patient History of Present Illness HPI narrative: presents with PICC line occlusion. Reports her antibiotics were not infusing this evening. Patient's been seen multiple times in this ER for the same complaint multiple attempts been made to contact care coordination and PICC team without success. Patient reports she gets Cathflo her PICC line works for a few days she will return to the ER for occlusion. Patient denies any fevers, cough, congestion, chest pain Related Data Home Medications Medication Instructions Recorded Confirmed gabapentin 1,200 mg PO DAILY@1700 03/11/21 04/06/21 gabapentin 600 mg PO BID 03/11/21 04/06/21 metformin 1,000 mg PO BID 03/11/21 04/06/21 tramadol 50 mg PO Q8H PRN 03/27/21 04/06/21 Allergies Allergy/AdvReac Type Severity Reaction Status Date / Time No Known Allergies Allergy Unknown Verified 04/19/21 19:58 Review of Systems Review of Systems: CONSTITUTIONAL: Denies fever, chills, or sweats. EYES: Denies visual changes, redness, or discharge. ENT: Denies rhinorrhea, congestion, sore throat, or otalgia. CARDIOVASCULAR: Denies chest pain, palpitations, or edema. RESPIRATORY: Denies cough or dyspnea. GASTROINTESTINAL: Denies abdominal pain, nausea, vomiting, or diarrhea. GENITOURINARY: Denies dysuria or hematuria. SKIN: Denies rash or itching. MUSCULOSKELETAL: Denies back pain, joint pain, or myalgia. NEUROLOGIC: Denies headache, numbness, dizziness, or weakness. PSYCHIATRIC: Denies anxiety or depression. All systems reviewed & are unremarkable except as noted in HPI and below [facility] Past Medical History Medical History Asthma Diabetes 03/12/2021 hemoglobin A1c 12.4 Diabetic neuropathy GERD (gastroesophageal reflux disease) Hypercholesterolemia Hypertension Kidney stones Obesity (BMI 30.0-34.9) Psoriasis Surgical History Surgical History History of tonsillectomy Family History Family History Grandparent Diabetes mellitus Father Diabetes mellitus Mother Diabetes mellitus Mother Hypertension Social History Social History Social History: She lives at home with 19-year-old and 14-year-old children. As well as her mother. 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 Smoking status: Never smoker Alcohol intake: current Drinks per week: 1 Substance use: never Gender identity (if verbalized by the patient): Female Spiritual care concerns: No Exam Narrative: GENERAL: Well-appearing, well-nourished, and in no acute distress. HEAD: Normocephalic, atraumatic. EYES: PERRLA and EOMI. ENT: Nares clear, no rhinorrhea or epistaxis. Mucous membranes moist. NECK: Supple. No masses. No JVD EXTREMITIES: Normal range of motion. No edema. SKIN: Warm, dry, no rash. NEURO: No focal deficits. Alert and oriented x3. PSYCH: Normal mood and affect. Course Vital Signs Vital signs: Vital Signs Temperature 36.2 C L 04/19/21 19:56 Pulse Rate 114 H 04/19/21 19:56 Respiratory Rate 16 04/19/21 19:56 Blood Pressure 134/76 04/19/21 19:56 Pulse Oximetry 100 04/19/21 19:56 Temperature 36.2 C L 04/19/21 19:56 Pulse Rate 94 04/20/21 03:30 Respiratory Rate 16 04/20/21 03:30 Blood Pressure 124/65 04/20/21 03:30 Pulse Oximetry 100 04/20/21 03:30 Medical Decision Making MDM Narrative Medical decision making narrative: H&P as above, vss, pt looks clinically well, exam reassuring, additional labs/img considered, symptomatic relief available as needed, patient given Cathflo on reevaluation pt continues to looks clinically well,
[2021-04-20 00:07] VITALS: BP 137/85; PULSE 99; RESP 17; O2SAT 100
[2021-04-20] MEDS: ALTEPLASE 2 MG VIAL (CATHFLO) IV PUSH (01:24)
[2021-04-20 03:30] VITALS: BP 124/65; PULSE 94; RESP 16; O2SAT 100
== END 2021-04-20 03:34 | disposition home or self-care (01) ==
PROVIDERS: Emergency Provider Emergency Medicine; PCP Internal Medicine Gastroenterology
DX: T82.868A Thrombosis due to vascular prosthetic devices, implants and grafts, initial encounter (principal); J45.909 Unspecified asthma, uncomplicated; E11.40 Type 2 diabetes mellitus with diabetic neuropathy, unspecified; K21.9 Gastro-esophageal reflux disease without esophagitis; E78.00 Pure hypercholesterolemia, unspecified; I10 Essential (primary) hypertension; Z87.442 Personal history of urinary calculi; E66.9 Obesity, unspecified; Z68.37 Body mass index [BMI] 37.0-37.9, adult; Z79.4 Long term (current) use of insulin
CPT/HCPCS: 36593; 96374; 99284; J2997

== ENCOUNTER 2021-04-24 18:15 | Emergency (ER) | payer OTHER, SELFPAY ==
[2021-04-24 18:36] VITALS: BP 144/84; PULSE 100; RESP 19; TEMP 36.2; O2SAT 100
--- NOTE | 2021-04-24 22:23 | PC.NURSE ---
waiting on orders from ERP
--- NOTE | 2021-04-24 22:44 | ED.GENADULT ---
HPI - General Adult General Chief complaint: Recheck/Abnormal Lab/Rx Stated complaint: picc line not working Time Seen by Provider: 04/24/21 21:29 History of Present Illness HPI narrative: Patient 36-year-old female presents the emergency department with chief complaint of slow flowing PICC line. The patient states that she noticed that her antibiotic has not been flowing quickly through the line and states that this feels like whenever she gets clotted up and needs Cathflo PICC line. The patient denies shortness of breath denies chest pain reports that her wound is healing okay and reports that hopefully she will be able to have her PICC line removed later this week Related Data Home Medications Medication Instructions Recorded Confirmed gabapentin 1,200 mg PO DAILY@1700 03/11/21 04/06/21 gabapentin 600 mg PO BID 03/11/21 04/06/21 metformin 1,000 mg PO BID 03/11/21 04/06/21 tramadol 50 mg PO Q8H PRN 03/27/21 04/06/21 Allergies Allergy/AdvReac Type Severity Reaction Status Date / Time No Known Allergies Allergy Unknown Verified 04/19/21 19:58 Review of Systems Review of Systems: A 10 system review of systems was completed on the patient and is negative except for what is stated in the HPI. Nursing and ancillary documentation was reviewed. [facility] Past Medical History Medical History Asthma Diabetes 03/12/2021 hemoglobin A1c 12.4 Diabetic neuropathy GERD (gastroesophageal reflux disease) Hypercholesterolemia Hypertension Kidney stones Obesity (BMI 30.0-34.9) Psoriasis Surgical History Surgical History History of tonsillectomy Family History Family History Grandparent Diabetes mellitus Father Diabetes mellitus Mother Diabetes mellitus Mother Hypertension Social History Social History Social History: She lives at home with 19-year-old and 14-year-old children. As well as her mother. 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 Smoking status: Never smoker Alcohol intake: current Drinks per week: 1 Substance use: never Gender identity (if verbalized by the patient): Female Spiritual care concerns: No Exam Narrative: GENERAL: Well-appearing, well-nourished, and in no acute distress. HEAD: Normocephalic, atraumatic. EYES: PERRLA and EOMI. ENT: Nares clear, no rhinorrhea or epistaxis. Mucous membranes moist. NECK: Supple. CHEST: Clear to auscultation. No respiratory distress. HEART: Regular rate and rhythm. No murmur heard. Normal peripheral pulses. ABDOMEN: Soft, nontender, nondistended, normal active bowel sounds. EXTREMITIES: Normal range of motion. No edema. There is a PICC line present in the left upper extremity SKIN: Warm, dry, no rash. NEURO: No focal deficits. Alert and oriented x3. PSYCH: Normal mood and affect. Course Vital Signs Vital signs: Vital Signs Temperature 36.2 C L 04/24/21 18:36 Pulse Rate 100 04/24/21 18:36 Respiratory Rate 19 04/24/21 18:36 Blood Pressure 144/84 H 04/24/21 18:36 Pulse Oximetry 100 04/24/21 18:36 Temperature 36.2 C L 04/24/21 18:36 Pulse Rate 100 04/24/21 18:36 Respiratory Rate 19 04/24/21 18:36 Blood Pressure 144/84 H 04/24/21 18:36 Pulse Oximetry 100 04/24/21 18:36 Medical Decision Making Vital Signs Vital Signs: Vital Signs Temperature 36.2 C L 04/24/21 18:36 Pulse Rate 100 04/24/21 18:36 Respiratory Rate 19 04/24/21 18:36 Blood Pressure 144/84 H 04/24/21 18:36 Pulse Oximetry 100 04/24/21 18:36 Temperature 36.2 C L 04/24/21 18:36 Pulse Rate 100 04/24/21 18:36 Respiratory Rate 19 04/24/21 18:36 Blood Pressure 144/84 H 04/24/21 18:36 Pulse Oxime
[2021-04-24] MEDS: ALTEPLASE 2 MG VIAL (CATHFLO) IV PUSH ×2 (23:47→23:48)
[2021-04-25 02:14] VITALS: PULSE 68; RESP 16; O2SAT 100
== END 2021-04-25 02:16 | disposition home or self-care (01) ==
PROVIDERS: Emergency Provider Emergency Medicine; PCP Internal Medicine Gastroenterology
DX: T82.868A Thrombosis due to vascular prosthetic devices, implants and grafts, initial encounter (principal); I10 Essential (primary) hypertension; E11.40 Type 2 diabetes mellitus with diabetic neuropathy, unspecified; K21.9 Gastro-esophageal reflux disease without esophagitis; J45.909 Unspecified asthma, uncomplicated; Z87.442 Personal history of urinary calculi; E66.9 Obesity, unspecified; Z68.37 Body mass index [BMI] 37.0-37.9, adult; Z79.84 Long term (current) use of oral hypoglycemic drugs; Z79.4 Long term (current) use of insulin
CPT/HCPCS: 36593; 96374; 99284; J2997

== ENCOUNTER 2021-04-26 10:35 | Outpatient (RCR) | payer OTHER, SELFPAY ==
[2021-03-23 15:10] LABS: Basophils Percent Auto 0.6 % (0.2-1.2); Eosinophils Absolute Auto 0.5 K/mm3 (0-0.3); Eosinophils Percent Auto 8.1 % (0-4.4); Hematocrit 33.6 % (37.0-47.0); Hemoglobin 10.7 g/dL (12.0-15.0); Immature Granulocyte Absolute 0.03 K/mm3 (0.00-0.031); Immature Granulocyte Percent A 0.5 % (0-0.5); Lymphocytes Absolute Auto 2.23 K/mm3 (0.9-3.2); Lymphocytes Percent Auto 33.5 % (18.3-44.2); Mean Corpuscular HGB Conc 31.8 g/dl (32-36); Mean Corpuscular Hemoglobin 26.6 pg (26-34); Mean Corpuscular Volume 83.4 fl (80-100); Mean Platelet Volume 10.3 fl (7.4-10.4); Monocytes Absolute Auto 0.9 K/mm3 (0.1-0.6); Monocytes Percent Auto 13.4 % (2.6-8.5); Neutrophils Absolute Auto 2.9 K/mm3 (1.3-6.7); Neutrophils Percent Auto 43.9 % (45.5-73.1); Platelet Count Result 297 k/mm3 (150-375); Red Blood Count 4.03 M/mm3 (4.2-5.4); Red Cell Distribution Width 14.3 % (11.5-14.5); White Blood Count 6.7 K/mm3 (4.5-10.0)
[2021-03-23 15:15] LABS: Anion Gap 9 mmol/L (8-16); Carbon Dioxide 25 mmol/L (22-30); Chloride 105 mmol/L (98-107); Sodium 139 mmol/L (137-145)
[2021-03-23 15:16] LABS: Alanine Aminotransferase 26 U/L (4-35); Albumin Level 3.4 g/dL (3.5-5.1); Alkaline Phosphatase 73 U/L (38-126); Aspartate Amino Transferase 51 U/L (14-36); Bilirubin,Total 0.4 mg/dL (0.2-1.3); Blood Urea Nitrogen 13 mg/dL (7-17); CRP 3.4 mg/dL (<1.0); Calcium 9.2 mg/dL (8.4-10.2); Estimated Glomerular Filt Rate > 60; Glucose 165 mg/dL (65-110)
[2021-03-23 15:18] LABS: Potassium 4.6 mmol/L (3.4-5.0); Vancomycin Trough 15.9 ug/mL (10.0-20.0)
[2021-03-25 10:10] LABS: Alanine Aminotransferase 25 U/L (4-35); Albumin Level 3.9 g/dL (3.5-5.1); Alkaline Phosphatase 68 U/L (38-126); Anion Gap 9 mmol/L (8-16); Aspartate Amino Transferase 50 U/L (14-36); Bilirubin,Total 0.4 mg/dL (0.2-1.3); Blood Urea Nitrogen 12 mg/dL (7-17); Calcium 9.2 mg/dL (8.4-10.2); Carbon Dioxide 25 mmol/L (22-30); Chloride 102 mmol/L (98-107); Estimated Glomerular Filt Rate > 60; Glucose 127 mg/dL (65-110); Potassium 4.2 mmol/L (3.4-5.0); Sodium 136 mmol/L (137-145)
[2021-03-25 10:17] LABS: Vancomycin Trough 12.1 ug/mL (10.0-20.0)
[2021-03-25 10:26] LABS: Basophils Percent Auto 0.3 % (0.2-1.2); Eosinophils Absolute Auto 0.6 K/mm3 (0-0.3); Eosinophils Percent Auto 8.6 % (0-4.4); Hematocrit 33.6 % (37.0-47.0); Hemoglobin 10.6 g/dL (12.0-15.0); Immature Granulocyte Absolute 0.03 K/mm3 (0.00-0.031); Immature Granulocyte Percent A 0.4 % (0-0.5); Lymphocytes Absolute Auto 2.61 K/mm3 (0.9-3.2); Lymphocytes Percent Auto 37.4 % (18.3-44.2); Mean Corpuscular HGB Conc 31.5 g/dl (32-36); Mean Corpuscular Hemoglobin 26.4 pg (26-34); Mean Corpuscular Volume 83.8 fl (80-100); Mean Platelet Volume 10.3 fl (7.4-10.4); Monocytes Absolute Auto 0.8 K/mm3 (0.1-0.6); Monocytes Percent Auto 11.3 % (2.6-8.5); Neutrophils Absolute Auto 2.9 K/mm3 (1.3-6.7); Platelet Count Result 250 k/mm3 (150-375); Red Blood Count 4.01 M/mm3 (4.2-5.4); Red Cell Distribution Width 14.3 % (11.5-14.5)
[2021-03-29 10:37] LABS: Alanine Aminotransferase 29 U/L (4-35); Albumin Level 3.7 g/dL (3.5-5.1); Alkaline Phosphatase 89 U/L (38-126); Anion Gap 7 mmol/L (8-16); Aspartate Amino Transferase 43 U/L (14-36); Bilirubin,Total 0.4 mg/dL (0.2-1.3); Blood Urea Nitrogen 13 mg/dL (7-17); Calcium 9.6 mg/dL (8.4-10.2); Carbon Dioxide 28 mmol/L (22-30); Chloride 103 mmol/L (98-107); Estimated Glomerular Filt Rate > 60; Glucose 114 mg/dL (65-110); Sodium 138 mmol/L (137-145)
[2021-03-29 10:38] LABS: Vancomycin Trough 13.4 ug/mL (10.0-20.0)
[2021-03-29 11:01] LABS: Basophils Percent Auto 0.3 % (0.2-1.2); Eosinophils Absolute Auto 0.7 K/mm3 (0-0.3); Eosinophils Percent Auto 8.4 % (0-4.4); Hematocrit 31.9 % (37.0-47.0); Hemoglobin 10.3 g/dL (12.0-15.0); Immature Granulocyte Absolute 0.03 K/mm3 (0.00-0.031); Immature Granulocyte Percent A 0.4 % (0-0.5); Lymphocytes Absolute Auto 2.63 K/mm3 (0.9-3.2); Lymphocytes Percent Auto 33.2 % (18.3-44.2); Mean Corpuscular HGB Conc 32.3 g/dl (32-36); Mean Corpuscular Volume 83.7 fl (80-100); Mean Platelet Volume 10.6 fl (7.4-10.4); Monocytes Percent Auto 12.4 % (2.6-8.5); Neutrophils Absolute Auto 3.6 K/mm3 (1.3-6.7); Neutrophils Percent Auto 45.3 % (45.5-73.1); Platelet Count Result 224 k/mm3 (150-375); Red Blood Count 3.81 M/mm3 (4.2-5.4); Red Cell Distribution Width 14.2 % (11.5-14.5); White Blood Count 7.9 K/mm3 (4.5-10.0)
[2021-03-31 09:45] LABS: Basophils Absolute Auto 0.1 K/mm3 (0.0-0.1); Basophils Percent Auto 0.7 % (0.2-1.2); Eosinophils Absolute Auto 0.7 K/mm3 (0-0.3); Eosinophils Percent Auto 8.1 % (0-4.4); Hematocrit 33.1 % (37.0-47.0); Hemoglobin 10.9 g/dL (12.0-15.0); Immature Granulocyte Absolute 0.02 K/mm3 (0.00-0.031); Immature Granulocyte Percent A 0.2 % (0-0.5); Lymphocytes Absolute Auto 2.51 K/mm3 (0.9-3.2); Lymphocytes Percent Auto 29.8 % (18.3-44.2); Mean Corpuscular HGB Conc 32.9 g/dl (32-36); Mean Corpuscular Hemoglobin 26.7 pg (26-34); Mean Corpuscular Volume 80.9 fl (80-100); Mean Platelet Volume 10.3 fl (7.4-10.4); Monocytes Absolute Auto 0.9 K/mm3 (0.1-0.6); Monocytes Percent Auto 10.9 % (2.6-8.5); Neutrophils Absolute Auto 4.2 K/mm3 (1.3-6.7); Neutrophils Percent Auto 50.3 % (45.5-73.1); Platelet Count Result 270 k/mm3 (150-375); Red Blood Count 4.09 M/mm3 (4.2-5.4); Red Cell Distribution Width 14.2 % (11.5-14.5); White Blood Count 8.4 K/mm3 (4.5-10.0)
[2021-03-31 10:05] LABS: Alanine Aminotransferase 26 U/L (4-35); Albumin Level 3.8 g/dL (3.5-5.1); Alkaline Phosphatase 95 U/L (38-126); Anion Gap 10 mmol/L (8-16); Aspartate Amino Transferase 35 U/L (14-36); Bilirubin,Total 0.4 mg/dL (0.2-1.3); Blood Urea Nitrogen 10 mg/dL (7-17); Calcium 9.1 mg/dL (8.4-10.2); Carbon Dioxide 26 mmol/L (22-30); Chloride 104 mmol/L (98-107); Estimated Glomerular Filt Rate > 60; Glucose 120 mg/dL (65-110); Potassium 3.6 mmol/L (3.4-5.0); Sodium 140 mmol/L (137-145)
[2021-03-31 10:17] LABS: Vancomycin Trough 12.7 ug/mL (10.0-20.0)
[2021-04-05 10:47] LABS: Basophils Absolute Auto 0.1 K/mm3 (0.0-0.1); Basophils Percent Auto 1.2 % (0.2-1.2); Eosinophils Percent Auto 10.8 % (0-4.4); Hematocrit 32.3 % (37.0-47.0); Hemoglobin 10.6 g/dL (12.0-15.0); Immature Granulocyte Absolute 0.05 K/mm3 (0.00-0.031); Immature Granulocyte Percent A 0.5 % (0-0.5); Lymphocytes Absolute Auto 3.14 K/mm3 (0.9-3.2); Lymphocytes Percent Auto 33.8 % (18.3-44.2); Mean Corpuscular HGB Conc 32.8 g/dl (32-36); Mean Corpuscular Hemoglobin 26.8 pg (26-34); Mean Corpuscular Volume 81.6 fl (80-100); Mean Platelet Volume 10.2 fl (7.4-10.4); Monocytes Absolute Auto 1.2 K/mm3 (0.1-0.6); Monocytes Percent Auto 12.9 % (2.6-8.5); Neutrophils Absolute Auto 3.8 K/mm3 (1.3-6.7); Neutrophils Percent Auto 40.8 % (45.5-73.1); Platelet Count Result 274 k/mm3 (150-375); Red Blood Count 3.96 M/mm3 (4.2-5.4); Red Cell Distribution Width 14.3 % (11.5-14.5); White Blood Count 9.3 K/mm3 (4.5-10.0)
[2021-04-05 11:07] LABS: Alanine Aminotransferase 28 U/L (4-35); Albumin Level 3.6 g/dL (3.5-5.1); Alkaline Phosphatase 84 U/L (38-126); Anion Gap 10 mmol/L (8-16); Aspartate Amino Transferase 40 U/L (14-36); Bilirubin,Total 0.4 mg/dL (0.2-1.3); Blood Urea Nitrogen 17 mg/dL (7-17); Calcium 9.2 mg/dL (8.4-10.2); Carbon Dioxide 26 mmol/L (22-30); Chloride 103 mmol/L (98-107); Estimated Glomerular Filt Rate > 60; Glucose 95 mg/dL (65-110); Potassium 3.8 mmol/L (3.4-5.0); Sodium 139 mmol/L (137-145)
[2021-04-05 11:10] LABS: Vancomycin Trough 10.8 ug/mL (10.0-20.0)
[2021-04-08 11:01] LABS: Alanine Aminotransferase 34 U/L (4-35); Albumin Level 3.7 g/dL (3.5-5.1); Alkaline Phosphatase 72 U/L (38-126); Anion Gap 10 mmol/L (8-16); Aspartate Amino Transferase 41 U/L (14-36); Bilirubin,Total 0.5 mg/dL (0.2-1.3); Blood Urea Nitrogen 12 mg/dL (7-17); Calcium 9.3 mg/dL (8.4-10.2); Carbon Dioxide 25 mmol/L (22-30); Chloride 105 mmol/L (98-107); Estimated Glomerular Filt Rate > 60; Glucose 96 mg/dL (65-110); Sodium 140 mmol/L (137-145)
[2021-04-08 11:04] LABS: Vancomycin Trough 11.2 ug/mL (10.0-20.0)
[2021-04-15 10:05] LABS: Basophils Absolute Auto 0.1 K/mm3 (0.0-0.1); Basophils Percent Auto 1.2 % (0.2-1.2); Eosinophils Absolute Auto 0.6 K/mm3 (0-0.3); Eosinophils Percent Auto 6.5 % (0-4.4); Hematocrit 34.9 % (37.0-47.0); Hemoglobin 11.2 g/dL (12.0-15.0); Immature Granulocyte Absolute 0.05 K/mm3 (0.00-0.031); Immature Granulocyte Percent A 0.5 % (0-0.5); Lymphocytes Absolute Auto 3.18 K/mm3 (0.9-3.2); Lymphocytes Percent Auto 32.7 % (18.3-44.2); Mean Corpuscular HGB Conc 32.1 g/dl (32-36); Mean Corpuscular Hemoglobin 26.7 pg (26-34); Mean Corpuscular Volume 83.3 fl (80-100); Mean Platelet Volume 10.1 fl (7.4-10.4); Monocytes Absolute Auto 1.2 K/mm3 (0.1-0.6); Neutrophils Absolute Auto 4.6 K/mm3 (1.3-6.7); Neutrophils Percent Auto 47.1 % (45.5-73.1); Platelet Count Result 291 k/mm3 (150-375); Red Blood Count 4.19 M/mm3 (4.2-5.4); Red Cell Distribution Width 14.9 % (11.5-14.5); White Blood Count 9.7 K/mm3 (4.5-10.0)
[2021-04-15 10:14] LABS: Alanine Aminotransferase 32 U/L (4-35); Albumin Level 3.8 g/dL (3.5-5.1); Alkaline Phosphatase 70 U/L (38-126); Anion Gap 9 mmol/L (8-16); Aspartate Amino Transferase 40 U/L (14-36); Bilirubin,Total 0.4 mg/dL (0.2-1.3); Blood Urea Nitrogen 11 mg/dL (7-17); Calcium 9.3 mg/dL (8.4-10.2); Carbon Dioxide 26 mmol/L (22-30); Chloride 104 mmol/L (98-107); Estimated Glomerular Filt Rate > 60; Glucose 126 mg/dL (65-110); Sodium 139 mmol/L (137-145)
[2021-04-15 10:18] LABS: Vancomycin Trough 13.3 ug/mL (10.0-20.0)
[2021-04-19 10:39] LABS: Hematocrit 33.1 % (37.0-47.0); Hemoglobin 10.5 g/dL (12.0-15.0); Mean Corpuscular HGB Conc 31.7 g/dl (32-36); Mean Corpuscular Hemoglobin 26.6 pg (26-34); Mean Corpuscular Volume 83.8 fl (80-100); Mean Platelet Volume 10.5 fl (7.4-10.4); Platelet Count Result 255 k/mm3 (150-375); Red Blood Count 3.95 M/mm3 (4.2-5.4); White Blood Count 8.6 K/mm3 (4.5-10.0)
[2021-04-19 10:49] LABS: Alanine Aminotransferase 36 U/L (4-35); Albumin Level 3.8 g/dL (3.5-5.1); Alkaline Phosphatase 65 U/L (38-126); Anion Gap 7 mmol/L (8-16); Aspartate Amino Transferase 55 U/L (14-36); Bilirubin,Total 0.4 mg/dL (0.2-1.3); Blood Urea Nitrogen 10 mg/dL (7-17); Carbon Dioxide 27 mmol/L (22-30); Chloride 100 mmol/L (98-107); Estimated Glomerular Filt Rate > 60; Glucose 144 mg/dL (65-110); Potassium 3.7 mmol/L (3.4-5.0); Sodium 134 mmol/L (137-145)
[2021-04-23 11:35] LABS: Basophils Absolute Auto 0.1 K/mm3 (0.0-0.1); Basophils Percent Auto 1.1 % (0.2-1.2); Eosinophils Absolute Auto 0.6 K/mm3 (0-0.3); Eosinophils Percent Auto 6.2 % (0-4.4); Hemoglobin 11.6 g/dL (12.0-15.0); Immature Granulocyte Absolute 0.02 K/mm3 (0.00-0.031); Immature Granulocyte Percent A 0.2 % (0-0.5); Lymphocytes Percent Auto 32.5 % (18.3-44.2); Mean Corpuscular HGB Conc 31.4 g/dl (32-36); Mean Corpuscular Hemoglobin 26.2 pg (26-34); Mean Corpuscular Volume 83.5 fl (80-100); Mean Platelet Volume 10.5 fl (7.4-10.4); Monocytes Absolute Auto 1.2 K/mm3 (0.1-0.6); Monocytes Percent Auto 12.7 % (2.6-8.5); Neutrophils Absolute Auto 4.4 K/mm3 (1.3-6.7); Neutrophils Percent Auto 47.3 % (45.5-73.1); Platelet Count Result 284 k/mm3 (150-375); Red Blood Count 4.43 M/mm3 (4.2-5.4); White Blood Count 9.2 K/mm3 (4.5-10.0)
[2021-04-23 11:52] LABS: Alanine Aminotransferase 54 U/L (4-35); Albumin Level 4.3 g/dL (3.5-5.1); Alkaline Phosphatase 63 U/L (38-126); Anion Gap 8 mmol/L (8-16); Aspartate Amino Transferase 89 U/L (14-36); Bilirubin,Total 0.6 mg/dL (0.2-1.3); Blood Urea Nitrogen 11 mg/dL (7-17); Calcium 9.4 mg/dL (8.4-10.2); Carbon Dioxide 27 mmol/L (22-30); Chloride 102 mmol/L (98-107); Estimated Glomerular Filt Rate > 60; Glucose 102 mg/dL (65-110); Potassium 4.8 mmol/L (3.4-5.0); Sodium 137 mmol/L (137-145)
[2021-04-23 11:54] LABS: Vancomycin Trough 14.6 ug/mL (10.0-20.0)
[2021-04-26 11:15] LABS: Basophils Absolute Auto 0.1 K/mm3 (0.0-0.1); Basophils Percent Auto 1.1 % (0.2-1.2); Eosinophils Absolute Auto 0.4 K/mm3 (0-0.3); Eosinophils Percent Auto 5.3 % (0-4.4); Hematocrit 35.6 % (37.0-47.0); Hemoglobin 11.3 g/dL (12.0-15.0); Immature Granulocyte Absolute 0.02 K/mm3 (0.00-0.031); Immature Granulocyte Percent A 0.2 % (0-0.5); Lymphocytes Absolute Auto 3.48 K/mm3 (0.9-3.2); Lymphocytes Percent Auto 41.5 % (18.3-44.2); Mean Corpuscular HGB Conc 31.7 g/dl (32-36); Mean Corpuscular Hemoglobin 26.5 pg (26-34); Mean Corpuscular Volume 83.4 fl (80-100); Mean Platelet Volume 10.5 fl (7.4-10.4); Monocytes Absolute Auto 1.2 K/mm3 (0.1-0.6); Monocytes Percent Auto 14.1 % (2.6-8.5); Neutrophils Absolute Auto 3.2 K/mm3 (1.3-6.7); Neutrophils Percent Auto 37.8 % (45.5-73.1); Platelet Count Result 273 k/mm3 (150-375); Red Blood Count 4.27 M/mm3 (4.2-5.4); Red Cell Distribution Width 14.9 % (11.5-14.5); White Blood Count 8.4 K/mm3 (4.5-10.0)
[2021-04-26 11:17] LABS: Vancomycin Trough 11.9 ug/mL (10.0-20.0)
[2021-04-26 11:19] LABS: Alanine Aminotransferase 53 U/L (4-35); Alkaline Phosphatase 74 U/L (38-126); Anion Gap 8 mmol/L (8-16); Aspartate Amino Transferase 74 U/L (14-36); Bilirubin,Total 0.4 mg/dL (0.2-1.3); Blood Urea Nitrogen 14 mg/dL (7-17); Calcium 9.5 mg/dL (8.4-10.2); Carbon Dioxide 28 mmol/L (22-30); Chloride 103 mmol/L (98-107); Estimated Glomerular Filt Rate > 60; Glucose 109 mg/dL (65-110); Sodium 139 mmol/L (137-145)
== END 2021-06-20 23:59 | disposition home or self-care (01) ==
LOC: HOME HLTH 10:35
PROVIDERS: PCP Internal Medicine Gastroenterology; Visit Provider Internal Medicine Infectious Disease
DX: L02.212 Cutaneous abscess of back [any part, except buttock and flank] (principal); M86.172 Other acute osteomyelitis, left ankle and foot; E11.621 Type 2 diabetes mellitus with foot ulcer; L97.521 Non-pressure chronic ulcer of other part of left foot limited to breakdown of skin
CPT/HCPCS: 80053; 80202; 85025; 85027; 86140

== ENCOUNTER → 2021-05-14 03:19 | Outpatient (CLI) | payer OTHER, SELFPAY ==
[2021-05-14 22:12] LABS: SARS-CoV-2 RNA PCR Negative
== END ==
PROVIDERS: PCP Internal Medicine Gastroenterology; Visit Provider Surgery
DX: Z01.812 Encounter for preprocedural laboratory examination (principal); Z20.822 Contact with and (suspected) exposure to COVID-19
CPT/HCPCS: 93005; C9803; U0003; U0005

== ENCOUNTER 2021-05-14 09:07 | Outpatient (CLI) | payer OTHER, SELFPAY ==
--- NOTE | 2021-05-14 09:17 | ECG_ITS ---
Measurements Intervals [place] Rate: 91 P: 47 NE: 167 QRS: 9 QRSD: 108 T: 43 QT: 340 QTc: 419 Interpretive Statements SINUS RHYTHM ANTEROSEPTAL INFARCT, AGE INDETERMINATE BASELINE ARTIFACT- I, III, AVL, AVF ABNORMAL ECG Electronically Signed On 05-14-2021 10:18:25 SAP BASIS CONSULTANT by Arnol Berry D.O.
== END 2021-05-14 09:08 | disposition home or self-care (01) ==
LOC: ANHSURGERY 09:12
PROVIDERS: PCP Internal Medicine Gastroenterology; Visit Provider Surgery
DX: Z01.810 Encounter for preprocedural cardiovascular examination (principal); E11.9 Type 2 diabetes mellitus without complications; I25.2 Old myocardial infarction
CPT/HCPCS: 93005

== ENCOUNTER 2021-06-07 07:32 | Outpatient (RCR) | payer OTHER, SELFPAY ==
--- NOTE | 2021-04-06 14:11 | WPDWOUNDNOTE ---
Wound Care Note Date/Time: 04/06/21 14:11 feels better, reports toe seems to be healing and swelling resolved Assessment and Plan Assessment and plan (1) Osteomyelitis of ankle or foot, left, acute: Code(s): M86.172 - Other acute osteomyelitis, left ankle and foot Status: Acute Assessment and Plan: no progression of disease, cont abx and local wound care, reevaluate after completion of IV abx, will repeat foot xray as well Review of Systems Review of Systems: All systems reviewed & are unremarkable except as noted in HPI and below Exam Const: General: cooperative, comfortable and no acute distress Nutritional Appearance: obese Resp: Effort & Inspection: normal respiratory effort Auscultation: clear to auscultation bilaterally Cardio: Rate: regular rate Rhythm: regular rhythm GI: Inspection: normal to inspection and non-distended GI Palp: Yes Soft to palpation and No Tenderness to palpation present (GI) Skin: General skin exam: normal color and no rashes or lesions noted Neuro: General: patient oriented x3 Extrem: Other: L foot 4th digit - 1x1x1 cm ulcer plantar surface distally, no drainage, no s/s active infection, DIP space c 1 cm opening that tunnels superiorly 1 cm, previous plantar ulcer healed
[2021-04-06 14:12] VITALS: BMI 34.7
--- NOTE | 2021-05-05 10:00 | WPDWOUNDNOTE ---
Wound Care Note Date/Time: 05/05/21 10:00 cont pain and swelling in L 4th toe, reports ulcer on forefoot is resolved Assessment and Plan Assessment and plan (1) Diabetic foot ulcer: Qualifiers: Diabetes mellitus type: type 2 Diabetic foot ulcer location: toe Laterality: left Non-pressure ulcer stage: limited to breakdown of skin Qualified Code(s): E11.621 - Type 2 diabetes mellitus with foot ulcer; L97.521 - Non-pressure chronic ulcer of other part of left foot limited to breakdown of skin Code(s): E11.621 - Type 2 diabetes mellitus with foot ulcer; L97.509 - Non-pressure chronic ulcer of other part of unspecified foot with unspecified severity Status: Acute Assessment and Plan: evidence of cont infection/compromise of L 4th digit, d/w pt and plan for amputation Review of Systems Review of Systems: All systems reviewed & are unremarkable except as noted in HPI and below Exam Const: General: cooperative, comfortable and no acute distress Nutritional Appearance: obese Orientation/consciousness: patient oriented x3 Resp: Effort & Inspection: normal respiratory effort Auscultation: clear to auscultation bilaterally Cardio: Rate: regular rate Rhythm: regular rhythm GI: Inspection: normal to inspection GI Palp: Yes Soft to palpation and No Tenderness to palpation present (GI) Skin: Other: L 4th digit foot - discolored, cool to touch, mod TTP, mod induration, no further extension to forefoot, small ulceration top of digit c no tracking/drainage
== END 2021-07-05 08:10 | disposition home or self-care (01) ==
LOC: ANHWOC 07:32
PROVIDERS: PCP Internal Medicine Gastroenterology; Visit Provider Surgery
DX: E11.621 Type 2 diabetes mellitus with foot ulcer (principal); L97.529 Non-pressure chronic ulcer of other part of left foot with unspecified severity
CPT/HCPCS: 99211; 99212; 99213; G0463

== ENCOUNTER → 2021-06-21 03:06 | Outpatient (CLI) | payer OTHER, SELFPAY ==
[2021-06-21 17:26] LABS: SARS-CoV-2 RNA PCR Negative
== END ==
PROVIDERS: PCP Internal Medicine Gastroenterology; Visit Provider Surgery
DX: Z01.812 Encounter for preprocedural laboratory examination (principal); Z20.822 Contact with and (suspected) exposure to COVID-19
CPT/HCPCS: C9803; U0003; U0005

== ENCOUNTER 2021-06-24 00:16 | Day surgery (SDC) | payer OTHER, SELFPAY ==
[2021-05-11 09:36] VITALS: BMI 36.3
--- NOTE | 2021-05-11 10:01 | PC.NURSE ---
Addendum entered by Maya Molina RN 06/15/21 12:13: PT TO ARRIVE AT 1000 ON 06/24/21 FOR SURGERY AT 1200. COVID TEST ON 06/21 AT 0930. Original Note: Report to the Outpatient Waiting Room, entrance under the green pavilion located off [facility], at time 10:30 on date 05/17/21. OR Time: 12:30. - You will be asked a series of questions to screen for COVID 19 for your protection. - A mask is required within the hospital. - No visitors are allowed at this time. Preoperative COVID Testing Requirements: COVID TEST 05/14 AT 9:10 No COVID Test needed if: (proof is required; if not received patient will have Rapid Test prior to entry) - Patient has received COVID Vaccine at least 14 days prior to procedure date or - Patient has positive COVID test result within last 90 days of surgery date. COVID Test needed if above criteria is not met If not COVID vaccinated a COVID test must be conducted within 72 hours of surgery and patient is asked to isolate self from time of testing until procedure. You will go to the [facility] Site for your COVID testing. The [facility] site is located at the corner of [address] from [facility]. You will only be called if COVID results are positive and your surgeon may reschedule your elective surgery date. Patients may have clear liquids (water, carbonated beverages, clear teas, apple juice) until 3 hours prior to surgery (9:30) with a maximum of 20 ounces. - No food from midnight until time of surgery Take the following medications with a SIP of water the morning of surgery: GABAPENTIN, PAIN PILL (IF NEEDED), 11 UNITS INSULIN (1/2 OF NORMAL DOSE - DO NOT TAKE THE SHORT ACTING) Medications to discontinue per physician: VITAMINS/SUPPLEMENTS Date to take last dose: 05/14/21 AM Please no make-up, nail montserratian, hairspray, perfume, deodorant, or body powder the day of surgery. No jewelry (including any body piercings) or valuables the day of surgery, leave them at home. Please take a shower or bath the night before, or the morning of, surgery with an antibacterial soap. Wear comfortable, loose fitting clothing. - Jewelry must be removed prior to entering the operating room. Rings and piercings that are not removed may be cut off. - The hospital will not accept responsibility for valuables. - Please leave all valuables, including medications, at home the day of surgery. If you are going home after surgery, a licensed hazardous materials tanker driver must drive you home. - NO public transportation without another adult. - We recommend that an adult stay with you for 24 hours following discharge. - We also recommend that you do not drive, make important decision, drink alcoholic beverages, or take any drugs that were not prescribed by your health care provider for at least 24 hours after your discharge time. Follow any additional instructions given to you from your surgeon. Telephone instructions given to JUAN J MAURICIO and asked if any additional questions and then verbalized understanding. Patient advised to call surgeon office or pre surgery nurse liaison [phone] if any additional questions.
--- NOTE | 2021-05-17 08:27 | SUR.PREOP ---
PATIENT ARRIVED STATES WAS SICK WITH RUNNY NOSE SORE THROAT AND COUCH SPOKE TO DR SIEGEL AND DR STATON WHO BOTH STATED CASE CANCELED TODAY PATIENT ADVISED TO CALL OFFICE TO RESCHEDULE AND CALL PRIMARY IF SICKNESS WORSENS
--- NOTE | 2021-06-15 12:13 | PC.NURSE ---
Pt states no changes in medications since initial interview. Medical history updated. New instructions reviewed with pt. Pt denies further questions at this time.
[2021-06-24] VITALS (7 sets, daily range): BP systolic 119–148; BP diastolic 69–88; PULSE 70–93; RESP 13–20; TEMP 35.9–36.1; O2SAT 95–100
[2021-06-24] MEDS: LACTATED RINGERS 1,000 ML 30 ML IV CONT ×2 (10:20→14:16)
[2021-06-24 10:25] LABS: Glucose Point of Care 109 mg/dl (65-105)
--- NOTE | 2021-06-24 10:53 | WPDANESEPPF ---
Anes - Initial Pre Proc Eval Procedure: Operation Date: 06/24/21 11:30 Proposed Procedures p Amputation of Left Fourth Toe - Lilian Solo MD Date/Time: 06/24/21 10:53 Surgeon: Lilian Solo MD Pre Op Diagnosis: diabetic left foot ulcer Patient Data Age: 36 Gender: F Height: 1.51 m Weight: 83.6 kg Last Vital Signs Temp 35.9 C L 06/24/21 09:37 Pulse 93 06/24/21 09:37 Resp 20 06/24/21 09:37 BP 148/88 H 06/24/21 09:37 Pulse Ox 100 06/24/21 09:37 Allergies Allergy/AdvReac Type Severity Reaction Status Date / Time No Known Allergies Allergy Unknown Verified 06/24/21 09:52 Home Medications Medication Instructions Recorded Confirmed Type gabapentin See Rx Instructions .ROUTE .COMPLEX 03/11/21 06/24/21 History gabapentin See Rx Instructions .ROUTE .COMPLEX 03/11/21 06/24/21 History metformin 1,000 mg PO BID 03/11/21 06/24/21 History tramadol 50 mg PO Q8H PRN 03/27/21 06/24/21 History hydrocodone 5 mg-acetaminophen 325 1 tablet PO Q6H PRN #30 tablet 04/06/21 06/24/21 Rx mg tablet lactobacillus combo no.11 1 cap PO BID 05/11/21 06/24/21 History [Probiotic] Lantus U-100 Insulin 22 unit SUBCUT QAM 06/24/21 06/24/21 History insulin lispro [Humalog KwikPen 8 unit SUBCUT TIDWMEAL 06/24/21 06/24/21 History Insulin] Laboratory Tests 06/24/21 10:21 POC Capillary Glucose 109 mg/dl H mg/dl (65-105) Patient hx anesthesia problems: none Family hx anesthesia problems: none Results Review: All pre-operative results and documents have been reviewed as part of the pre-operative evaluation. [facility] Past Medical History Medical History Asthma Diabetes 03/12/2021 hemoglobin A1c 12.4 Diabetic neuropathy GERD (gastroesophageal reflux disease) Hypercholesterolemia Hypertension Kidney stones Obesity (BMI 30.0-34.9) Psoriasis Surgical History Surgical History History of tonsillectomy Family History Family History Grandparent Diabetes mellitus Father Diabetes mellitus Mother Diabetes mellitus Mother Hypertension Social History Social History Social History: She lives at home with 19-year-old and 14-year-old children. As well as her mother. 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 Smoking status: Never smoker Alcohol intake: current Drinks per week: 1 Alcohol use details: A COUPLE/YEAR Substance use: never Substance use type: does not use Living arrangements: with family Gender identity (if verbalized by the patient): Female Spiritual care concerns: No Anes - Eval Final PreProcedure Day of Procedure 06/24/21 10:53 Patient weight: obese Heart: regular rate and rhythm Lungs: clear to auscultation and normal air movement Airway: Mallampati scale class II Neurological: alert and oriented Last oral intake: >/= 8 hours ASA classification: III Emergent: no Anesthetic plan: proceed Anesthesia type and monitoring: general GIVS Results Review: All pre-operative results and documents have been reviewed as part of the pre-operative evaluation. Informed Consent: The patient's anesthetic plan and its attendant risks and benefits were discussed with the patient/family/POA. Questions were solicited and answers provided to the satisfaction of the patient/family/POA.
--- NOTE | 2021-06-24 12:18 | SUR.PREOP ---
1205-PT AWARE SURGEON DELAYS SELF 1- 1 1/2HOURS. PT WILL TEXT MOM TO MAKE HER AWARE.
--- NOTE | 2021-06-24 12:58 | PM.IMHP ---
H&P: HPI History of Present Illness Date/Time: 06/24/21 12:58 Pt is a 36 y/o F well known to my service. Pt c DM and known non-healing L 4th toe ulcer. Pt c known osteomyelitis to toe as well. Pt has been on halfway IV abx and area has not really improved. Chief Complaint: L 4th toe osteomyelitis, diabetic ulcer Review of Systems Review of Systems: All systems reviewed & are unremarkable except as noted in HPI and below PMFSH Past Medical History Medical History Asthma Diabetes 03/12/2021 hemoglobin A1c 12.4 Diabetic neuropathy GERD (gastroesophageal reflux disease) Hypercholesterolemia Hypertension Kidney stones Obesity (BMI 30.0-34.9) Psoriasis Surgical History Surgical History History of tonsillectomy Family History Family History Grandparent Diabetes mellitus Father Diabetes mellitus Mother Diabetes mellitus Mother Hypertension Social History Social History Social History: She lives at home with 19-year-old and 14-year-old children. As well as her mother. 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 Smoking status: Never smoker Alcohol intake: current Drinks per week: 1 Alcohol use details: A COUPLE/YEAR Substance use: never Substance use type: does not use Living arrangements: with family Gender identity (if verbalized by the patient): Female Spiritual care concerns: No Meds Home Medications and Allergies Home Medications Medication Instructions Recorded Confirmed Type gabapentin See Rx Instructions .ROUTE .COMPLEX 03/11/21 06/24/21 History gabapentin See Rx Instructions .ROUTE .COMPLEX 03/11/21 06/24/21 History metformin 1,000 mg PO BID 03/11/21 06/24/21 History tramadol 50 mg PO Q8H PRN 03/27/21 06/24/21 History hydrocodone 5 mg-acetaminophen 325 1 tablet PO Q6H PRN #30 tablet 04/06/21 06/24/21 Rx mg tablet lactobacillus combo no.11 1 cap PO BID 05/11/21 06/24/21 History [Probiotic] Lantus U-100 Insulin 22 unit SUBCUT QAM 06/24/21 06/24/21 History insulin lispro [Humalog KwikPen 8 unit SUBCUT TIDWMEAL 06/24/21 06/24/21 History Insulin] Allergies Allergy/AdvReac Type Severity Reaction Status Date / Time No Known Allergies Allergy Unknown Verified 06/24/21 09:52 Vital Signs Vital Signs - 24 hr 06/24/21 09:37 Temperature 35.9 C L Pulse Rate 93 Respiratory Rate 20 Blood Pressure 148/88 H Pulse Oximetry 100 Exam Const: General: cooperative, comfortable and no acute distress Orientation/consciousness: patient oriented x3 Limitations: no limitations Resp: Effort & Inspection: normal respiratory effort Auscultation: clear to auscultation bilaterally Cardio: Rate: regular rate Rhythm: regular rhythm GI: Inspection: normal to inspection GI Palp: Yes Soft to palpation, No Tenderness to palpation present (GI) and No Guarding due to palpation present (GI) Skin: Other: L 4th toe - moderate swelling, TTP, no drainage Assessment and Plan Assessment and plan (1) Diabetic foot ulcer: Qualifiers: Diabetes mellitus type: type 2 Diabetic foot ulcer location: toe Laterality: left Non-pressure ulcer stage: limited to breakdown of skin Qualified Code(s): E11.621 - Type 2 diabetes mellitus with foot ulcer; L97.521 - Non-pressure chronic ulcer of other part of left foot limited to breakdown of skin Code(s): E11.621 - Type 2 diabetes mellitus with foot ulcer; L97.509 - Non-pressure chronic ulcer of other part of unspecified foot with unspecified severity Status: Acute Assessment and Plan: will setup for amputation of left 4th toe in OR
--- NOTE | 2021-06-24 13:02 | WPDHPUPDATE1 ---
History and Physical Update Update Date/Time: 06/24/21 13:02 History and Physical has been reviewed, including an updated exam of the patient. There are NO changes in the patient's condition. Risks, benefits, and alternatives have been discussed and questions answered. Patient agrees to proceed with procedure.
[2021-06-24] MEDS: ceFAZolin 2 GM/D5W 50 ML 2 GM/50 ML BAG IVPB (13:47)
[2021-06-24 14:24] LABS: Glucose Point of Care 83 mg/dl (65-105)
--- NOTE | 2021-06-24 14:32 | W.PM.PROC2 ---
Procedure Note - Detailed Date of Procedure 06/24/21 Pre-op Diagnosis diabetic left 4th toe ulcer, osteomyelitis Post-op Diagnosis same Procedure Performed left 4th toe amputation Surgeon Lilian Solo MD Anesthesia general Indications 36-year-old female with known left 4th toe diabetic foot ulcer and osteomyelitis refractory to IV antibiotics Findings left 4th toe osteomyelitis and proximal phalanx Description of Procedure The patient was taken to the operating room and placed in the supine position. After adequate induction of general anesthesia, the patient was prepped and draped in the normal sterile fashion. A time-out was then done to verify the patient's identity, as well as the procedure being performed. I began by making an fishmouth incision around the 4th digit of the left toe. This was carried through the dermis and into the subcutaneous tissue. I was able to note a nonhealing ulcer on the plantar aspect of her distal 4th toe. Upon getting to the proximal phalanx, it was noted that the bone was very soft and spongy. I then disarticulated the proximal phalanx. The toe was then completely detached by transecting the tendon. The specimen will be sent to pathology for further review. The bone in the forefoot was noted to be largely unremarkable, no other signs or symptoms of infection was noted. I then copiously washed out the wound. I then closed the incision with interrupted 3-0 nylon horizontal mattress sutures. Sterile dressing was then placed. The patient tolerated the procedure well and was extubated in the operating room postoperatively. She will be sent to the recovery room in stable condition. Estimated Blood Loss 10 Drains No Packing No Pathology yes Complications No immediate complications Condition stable Disposition PACU
--- NOTE | 2021-06-24 16:34 | SUR.PHASEII ---
this nurse called md taylor and he said pt can use her boot she has at home and no other assistive devices needed. He also said pt did not need to be on any antibiotics after her surgery.
== END 2021-06-24 16:20 | disposition home or self-care (01) ==
PROVIDERS: PCP Internal Medicine Gastroenterology; Visit Provider Surgery
PROC: (CPT 28825; principal; 2021-06-24 11:30)
DX: E11.621 Type 2 diabetes mellitus with foot ulcer (principal); L97.521 Non-pressure chronic ulcer of other part of left foot limited to breakdown of skin; E11.69 Type 2 diabetes mellitus with other specified complication; M86.8X7 Other osteomyelitis, ankle and foot; J45.909 Unspecified asthma, uncomplicated; K21.9 Gastro-esophageal reflux disease without esophagitis; E11.40 Type 2 diabetes mellitus with diabetic neuropathy, unspecified; E78.00 Pure hypercholesterolemia, unspecified; I10 Essential (primary) hypertension; L40.9 Psoriasis, unspecified; Z79.84 Long term (current) use of oral hypoglycemic drugs; Z79.4 Long term (current) use of insulin; E66.9 Obesity, unspecified; Z68.36 Body mass index [BMI] 36.0-36.9, adult
CPT/HCPCS: 28825; 82948; 88305; 88311; J0690; J2250; J2270; J2405; J2704; J7120

== ENCOUNTER 2021-07-03 13:56 | Emergency (ER) | payer OTHER, SELFPAY ==
--- NOTE | ~2021-07-03 | XR_ITS ---
EXAMINATION: XR foot LT min 3V DATE: 07/03/2021 14:56 INDICATION: Left foot wound, history of fourth toe amputation TECHNIQUE: Dorsoplantar, lateral, and 2 oblique views of the left foot were obtained. COMPARISON: 04/07/2021 FINDINGS: There are changes of interval fourth toe resection with a small remnant of the proximal pha lanx. No fracture is identified. 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 There is no fracture. There is mild dorsal soft tissue swelling of the distal foot overlying the metatarsals. . IMPRESSION: 1. Changes of interval fourth toe resection without acute osseous abnormality. Reviewed, dictated and finalized at location F. OPERATOR
[2021-07-03 13:58] VITALS: BP 144/94; PULSE 92; RESP 18; TEMP 36.4; O2SAT 100
--- NOTE | 2021-07-03 14:17 | ED.EXTPRO ---
HPI - Extremity Problem General Chief complaint: Extremity Problem,Nontraumatic Stated complaint: wound drainage Time Seen by Provider: 07/03/21 14:03 Source: patient Mode of arrival: ambulatory Limitations: no limitations History of Present Illness HPI Narrative: 36-year-old female presents with drainage from the left fourth toe x2 days. Patient states she had her left fourth toe amputated [address] Solo related to osteomyelitis. Patient states she is not on antibiotics currently. Patient denies fever nausea, vomiting, or abdominal pain. Patient denies any injuries or any other symptoms. Onset (ago): day(s) (2 days) Related Data Home Medications Medication Instructions Recorded Confirmed gabapentin See Rx Instructions .ROUTE .COMPLEX 03/11/21 06/24/21 gabapentin See Rx Instructions .ROUTE .COMPLEX 03/11/21 06/24/21 metformin 1,000 mg PO BID 03/11/21 06/24/21 tramadol 50 mg PO Q8H PRN 03/27/21 06/24/21 Probiotic 1 cap PO BID 05/11/21 06/24/21 Lantus U-100 Insulin 22 unit SUBCUT QAM 06/24/21 06/24/21 insulin lispro [Humalog KwikPen 8 unit SUBCUT TIDWMEAL 06/24/21 06/24/21 Insulin] Allergies Allergy/AdvReac Type Severity Reaction Status Date / Time No Known Allergies Allergy Unknown Verified 06/24/21 09:52 Review of Systems Constitutional: Constitutional: Reports no additional constitutional complaints Eyes: Eyes: Reports no additional eye complaints ENT: Reports system reviewed and no additional complaints, except as documented Cardiovascular: Cardiovascular: Reports no additional cardiovascular complaints Respiratory: Respiratory: Reports no additional respiratory complaints Gastrointestinal: Gastrointestinal: Reports no additional gastrointestinal complaints Genitourinary: Genitourinary: Reports no additional female genitourinary complaints Musculoskeletal: Musculoskeletal: Reports no additional musculoskeletal complaints Integumentary/Breasts: Skin/Breast: Reports erythema Neurologic: Reports system reviewed and no additional complaints, except as documented Psychiatric: Psychiatric: Reports no additional psychiatric complaints Endocrine: Endocrine: Reports no additional endocrine complaints Hematologic/Lymphatic: Hematologic/Lymphatic: Reports no additional hematologic/lymphatic complaints Allergic/Immunologic: Allergic/Immunologic: Reports no additional allergic/immunologic complaints PMFSH Past Medical History Medical History Asthma Diabetes 03/12/2021 hemoglobin A1c 12.4 Diabetic neuropathy GERD (gastroesophageal reflux disease) Hypercholesterolemia Hypertension Kidney stones Obesity (BMI 30.0-34.9) Psoriasis Surgical History Surgical History History of tonsillectomy Family History Family History Grandparent Diabetes mellitus Father Diabetes mellitus Mother Diabetes mellitus Mother Hypertension Social History Social History Social History: She lives at home with 19-year-old and 14-year-old children. As well as her mother. 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 Smoking status: Never smoker Alcohol intake: current Drinks per week: 1 Alcohol use details: A COUPLE/YEAR Substance use: never Substance use type: does not use Gender identity (if verbalized by the patient): Female Spiritual care concerns: No Exam Narrative: General appearance: Well-developed, well-nourished Skin: White drainage from left fourth digit with 6 sutures present. Left fourth digit is removed with erythema around the area incision senior site manager: Normocephalic, nontraumatic Eyes: Clear conjunctiva ENT: Oropharynx normal, ears normal, nose normal Neck: Supple, nontender Chest and re
[2021-07-03 14:48] LABS: Basophils Absolute Auto 0.1 K/mm3 (0.0-0.1); Basophils Percent Auto 0.5 % (0.2-1.2); Eosinophils Absolute Auto 0.2 K/mm3 (0-0.3); Eosinophils Percent Auto 2.2 % (0-4.4); Hematocrit 42.2 % (37.0-47.0); Hemoglobin 13.7 g/dL (12.0-15.0); Immature Granulocyte Absolute 0.03 K/mm3 (0.00-0.031); Immature Granulocyte Percent A 0.3 % (0-0.5); Lymphocytes Absolute Auto 3.13 K/mm3 (0.9-3.2); Lymphocytes Percent Auto 29.3 % (18.3-44.2); Mean Corpuscular HGB Conc 32.5 g/dl (32-36); Mean Corpuscular Hemoglobin 26.4 pg (26-34); Mean Corpuscular Volume 81.5 fl (80-100); Monocytes Absolute Auto 0.8 K/mm3 (0.1-0.6); Monocytes Percent Auto 7.3 % (2.6-8.5); Neutrophils Absolute Auto 6.5 K/mm3 (1.3-6.7); Neutrophils Percent Auto 60.4 % (45.5-73.1); Platelet Count Result 365 k/mm3 (150-375); Red Blood Count 5.18 M/mm3 (4.2-5.4); Red Cell Distribution Width 16.1 % (11.5-14.5); White Blood Count 10.7 K/mm3 (4.5-10.0)
[2021-07-03 15:03] LABS: Alanine Aminotransferase 33 U/L (4-35); Albumin Level 4.6 g/dL (3.5-5.1); Alkaline Phosphatase 82 U/L (38-126); Anion Gap 11 mmol/L (8-16); Aspartate Amino Transferase 39 U/L (14-36); Bilirubin,Total 0.5 mg/dL (0.2-1.3); Blood Urea Nitrogen 17 mg/dL (7-17); Calcium 9.6 mg/dL (8.4-10.2); Carbon Dioxide 25 mmol/L (22-30); Chloride 105 mmol/L (98-107); Estimated Glomerular Filt Rate > 60; Glucose 177 mg/dL (65-110); Potassium 4.7 mmol/L (3.4-5.0); Sodium 141 mmol/L (137-145)
== END 2021-07-03 16:27 | disposition home or self-care (01) ==
PROVIDERS: Emergency Provider Nurse Practitioner Family; PCP Internal Medicine Gastroenterology
DX: T81.41XA Infection following a procedure, superficial incisional surgical site, initial encounter (principal); L08.9 Local infection of the skin and subcutaneous tissue, unspecified; E11.40 Type 2 diabetes mellitus with diabetic neuropathy, unspecified; K21.9 Gastro-esophageal reflux disease without esophagitis; E78.00 Pure hypercholesterolemia, unspecified; I10 Essential (primary) hypertension; Z89.422 Acquired absence of other left toe(s); Z87.442 Personal history of urinary calculi; Z79.4 Long term (current) use of insulin; Z79.84 Long term (current) use of oral hypoglycemic drugs; E66.9 Obesity, unspecified; Z68.36 Body mass index [BMI] 36.0-36.9, adult
CPT/HCPCS: 36415; 73630; 80053; 85025; 87070; 87147; 87186; 87205; 99283

== ENCOUNTER 2022-04-24 21:24 | Inpatient (IN) | payer OTHER, SELFPAY ==
--- NOTE | ~2022-04-24 | US_ITS ---
EXAMINATION: US abdomen limited DATE: 04/25/2022 07:49 INDICATION: Abdominal pain. TECHNIQUE: Multiple grayscale and Doppler ultrasound images of the abdomen were obtained. COMPARISON: CT abdomen and pelvis 04/25/2022 FINDINGS: The visualized portions of the body of the pancreas are normal. Note that ultrasound has po or sensitivity for pancreatitis. There is diffuse hepatic steatosis. There is normal flow in main por divina vein. The gallbladder is normal in size. No gallstones or gallbladder wall thickening. There was no sonographic Espinoza sign. The common duct is normal and measures 5 mm . IMPRESSION: 1. Diffuse hepatic steatosis. Reviewed, dictated and finalized at location A. UTER CLERK
--- NOTE | ~2022-04-24 | NM_ITS ---
EXAMINATION: NM hepatobiliary w pharm DATE: 04/29/2022 15:21 INDICATION: Right upper quadrant abdominal pain. Assess gallbladder function. COMPARISON: None. TECHNIQUE: 4.5 mCi Tc-99m mebrofenin (Choletec) was administered intravenously. Scintigraphic images of the abdomen were obtained for one hour. 2 mg morphine was administered by slow intravenous infusi on, and imaging was continued for 30 minutes. FINDINGS: There is normal clearance of radiotracer from the blood pool. There is homogeneous tracer uptake by t he liver. Activity progresses to the common bile duct by 10 minutes with activity first seen within the small bowel at 20 minutes. There is activity accumulation within the gallbladder following morphi ne administration which essentially excludes acute cholecystitis. Following morphine administration t here is some reflux of activity into the stomach. IMPRESSION: 1. Activity in the gallbladder during the first one of imaging with delayed accumulation occurring f ollowing morphine administration which argues against acute cholecystitis but which could be seen wit h chronic cholecystitis. 2. Gastroduodenal reflux of activity following morphine administration. Reviewed, dictated and finalized at location A. OR QUALITY SUPERVISOR IMPRESSION: 1. Activity in the gallbladder during the first one of imaging with delayed ac cumulation occurring following morphine administration which argues against acu te cholecystitis but which could be seen with chronic cholecystitis. 2. Gastroduodenal reflux of activity following morphine administration.
--- NOTE | ~2022-04-24 | CT_ITS ---
EXAMINATION: CT abdomen pelvis w con DATE: 04/25/2022 05:29 INDICATION: Generalized abdominal pain. Nausea and vomiting. TECHNIQUE: Computed tomography (CT) of the abdomen and pelvis was performed with 100 mL Omnipaque 350 intravenous contrast. Automated exposure control and iterative reconstruction technique were employe d. The dose-length product was 1033.22 mGy-cm. COMPARISON: CT abdomen and pelvis 02/17/2019 FINDINGS: The visualized portions of the lung bases demonstrate mild atelectasis. No pleural effusion . The heart size is normal. No pericardial effusion. There is diffuse hepatic steatosis. The gallblad betsy, spleen, and adrenal glands are normal. There is fat stranding around the pancreas, consistent wi th acute interstitial pancreatitis. There are calcifications in the head of the pancreas, consistent with chronic pancreatitis. There is cortical thinning of the kidneys. There are cysts in the kidneys measuring up to 9 mm on the right. There are approximately 4 stones in right kidney measuring up to 2 mm. There is a 2 mm stone in left kidney. There is an intrauterine device in expected position. Ther e are no dilated loops of bowel. The appendix is normal. There are no pathologically enlarged lymph n odes. There is no free intraperitoneal fluid. There is mild thoracolumbar spondylosis. IMPRESSION: 1. Acute interstitial pancreatitis on chronic pancreatitis. Reviewed, dictated and finalized at location A. RDING ARTIST
[2022-04-24 21:34] VITALS: BP 130/80; PULSE 134; RESP 18; TEMP 36.3; O2SAT 100
[2022-04-25] VITALS (7 sets, daily range): BP systolic 138–157; BP diastolic 78–96; PULSE 100–118; RESP 18–21; TEMP 36.6–36.8; O2SAT 94–100
--- NOTE | 2022-04-25 03:08 | PC.NURSE ---
Patient will not answer this nurses questions. Patient will not look at the nurse at all. Patient family member in the room tried to answer questions for this patient.
[2022-04-25 03:16] LABS: Glucose Point of Care 227 mg/dl (65-105)
[2022-04-25] MEDS: SODIUM CHLORIDE 0.9% IV 1,000 ML 999 ML IV CONT (04:04)
[2022-04-25] MEDS: ONDANSETRON INJ 4 MG/2 ML VIAL IV PUSH (04:05)
--- NOTE | 2022-04-25 04:35 | ED.ABDPAIN ---
HPI - Abdominal Pain General Chief Complaint: Abdominal Pain Stated Complaint: ABD PAIN FOR 2 DAYS Time Seen by Provider: 04/25/22 03:07 History of Present Illness HPI narrative: Patient is a 37-year-old female who presents ER with upper abdominal pain. Ongoing for 2 days. Cannot describe aggravating or alleviating factors or if it radiates. History given to me from the boyfriend. Patient walked back to the room and I saw the patient within several minutes of her arrival. As I see her she will not wake up to talk to me. I have sternal rub to her and applied pressure to the nailbeds patient will wake up and talk but is very poor historian. Her friend reports she is not sleeping out in the waiting room. Currently her blood sugar is 227. Related Data Home Medications Medication Instructions Recorded Confirmed gabapentin 600 mg tablet See Rx Instructions .Route .COMPLEX 03/11/21 09/01/21 gabapentin 600 mg tablet See Rx Instructions .Route .COMPLEX 03/11/21 09/01/21 metformin 500 mg tablet 1,000 mg PO BID 03/11/21 09/01/21 lactobacillus combo no.11 15 1 cap PO BID 05/11/21 09/01/21 billion cell sprinkle capsule (Probiotic) insulin glargine 100 unit/mL 22 unit subcut QAM 06/24/21 09/01/21 subcutaneous solution (Lantus U-100 Insulin) insulin lispro 100 unit/mL 8 unit subcut TIDWMEAL 06/24/21 09/01/21 subcutaneous pen (Humalog KwikPen (U-100) Insulin) Allergies Allergy/AdvReac Type Severity Reaction Status Date / Time No Known Allergies Allergy Unknown Verified 09/01/21 10:07 Review of Systems Review of Systems: ROS unobtainable: Yes unobtainable due to medical condition PMFSH Past Medical History Medical History Asthma Diabetes 03/12/2021 hemoglobin A1c 12.4 Diabetic neuropathy GERD (gastroesophageal reflux disease) Hypercholesterolemia Hypertension Kidney stones Obesity (BMI 30.0-34.9) Psoriasis Surgical History Surgical History Amputation of toe of left foot 4th toe 06/24/21 History of tonsillectomy Family History Family History Grandparent Diabetes mellitus Father Diabetes mellitus Mother Diabetes mellitus Mother Hypertension Social History Social History Social History: She lives at home with 19-year-old and 14-year-old children. As well as her mother. 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 Smoking status: Never smoker Alcohol intake: current Drinks per week: 1 Alcohol use details: A COUPLE/YEAR Substance use: never Substance use type: does not use Gender identity (if verbalized by the patient): Female Spiritual care concerns: No Exam Narrative: GENERAL: Fatigued-appearing, well-nourished, and in no acute distress. HEAD: Normocephalic, atraumatic. EYES: PERRL and EOMI. ENT: Mucous membranes moist. CHEST: Clear to auscultation. No respiratory distress. HEART: Tachycardic regular. Normal peripheral pulses. ABDOMEN: Soft, bilateral upper quadrant tenderness with guarding, nondistended. EXTREMITIES: Normal range of motion. No edema. SKIN: Warm, dry, no rash. NEURO: Alert and oriented x3. PSYCH: Normal mood and affect. Course Vital Signs Vital signs: Vital Signs Temperature 97.3 F L 04/24/22 21:34 Pulse Rate 134 H 04/24/22 21:34 Respiratory Rate 18 04/24/22 21:34 Blood Pressure 130/80 04/24/22 21:34 Pulse Oximetry 100 04/24/22 21:34 Temperature 97.3 F L 04/24/22 21:34 Pulse Rate 110 H 04/25/22 08:01 Respiratory Rate 20 04/25/22 08:01 Blood Pressure 152/96 H 04/25/22 08:01 Pulse Oximetry 99 04/25/22 08:01 MDM - Abdominal Pain Lab Data 04/25/22 04:31 04/25/22 04:31 Labs: Lab Results 04/25/22 1
[2022-04-25 04:45] LABS: Basophils Absolute Auto 0.1 K/mm3 (0.0-0.1); Basophils Percent Auto 0.3 % (0.2-1.2); Hematocrit 43.3 % (37.0-47.0); Hemoglobin 14.5 g/dL (12.0-15.0); Immature Granulocyte Absolute 0.22 K/mm3 (0.00-0.031); Immature Granulocyte Percent A 0.8 % (0-0.5); Lymphocytes Absolute Auto 2.67 K/mm3 (0.9-3.2); Lymphocytes Percent Auto 9.9 % (18.3-44.2); Mean Corpuscular HGB Conc 33.5 g/dl (32-36); Mean Corpuscular Hemoglobin 27.9 pg (26-34); Mean Corpuscular Volume 83.4 fl (80-100); Mean Platelet Volume 11.3 fl (7.4-10.4); Monocytes Absolute Auto 1.5 K/mm3 (0.1-0.6); Monocytes Percent Auto 5.5 % (2.6-8.5); Neutrophils Absolute Auto 22.4 K/mm3 (1.3-6.7); Neutrophils Percent Auto 83.5 % (45.5-73.1); Platelet Count Result 284 k/mm3 (150-375); Red Blood Count 5.19 M/mm3 (4.2-5.4); Red Cell Distribution Width 14.3 % (11.5-14.5); White Blood Count 26.9 K/mm3 (4.5-10.0)
[2022-04-25 05:02] LABS: Lactic Acid Reflex 1.2 mmol/L (0.7-2.0)
[2022-04-25 05:03] LABS: Alanine Aminotransferase 32 U/L (6-35); Albumin Level 4.6 g/dL (3.5-5.1); Alkaline Phosphatase 105 U/L (38-126); Anion Gap 10 mmol/L (8-16); Aspartate Amino Transferase 28 U/L (14-36); Bilirubin,Total 0.8 mg/dL (0.2-1.3); Blood Urea Nitrogen 21 mg/dL (7-17); Calcium 8.6 mg/dL (8.4-10.2); Carbon Dioxide 25 mmol/L (22-30); Chloride 101 mmol/L (98-107); Estimated Glomerular Filt Rate > 60; Glucose 219 mg/dL (65-110); Lipase 1620 U/L (23-300); Potassium 3.9 mmol/L (3.4-5.0); Sodium 136 mmol/L (137-145)
[2022-04-25 06:00] LABS: Add Urine Microscopic? YES; Appearance Urine Clear (Clear); Bilirubin Urine 2+ (Negative); Blood Urine 1+ (Negative); Color Urine Yellow (Yellow); Glucose Urine UA 1+ mg/dL (Negative); Ketones Urine 3+ mg/dL (Negative); Leukocyte Esterase Ur Negative LEU/UL (Negative); Nitrate Urine Negative (Negative); Protein Urine 3+ mg/dL (Negative); Specific Grav Ur >= 1.030 (1.001-1.035); Urobilinogen Urine 0.2 mg/dL (<2.0); pH Urine 5.5 (5.0-9.0)
[2022-04-25 06:20] LABS: Budding Yeast Urine Present /hpf; Mucus Urine Rare /lpf; Squamous Epithelial Cell Urine Many /hpf (Few)
[2022-04-25 06:30] LABS: Bacteria Urine 2+ /hpf
[2022-04-25 06:44] LABS: Lactate Dehydrogenase 285 U/L (120-246)
--- NOTE | 2022-04-25 07:16 | PM.IMHP ---
H&P: HPI History of Present Illness Date/Time: 04/25/22 07:16 Chief Complaint: abd pain Narrative: Gem Morales is a 37 yo female with insulin dependent diabetes mellitus with neuropathy, GERD, hypertension, obesity BMI 34, intermittent asthma, and osteomyelitis s/p amputation in June of this year. She presented to the ED for evaluation of acute abdominal pain for approximately 2 days. The pain is constant, aching in the epigastric region and radiating to her back. She reports associated nausea, non-bloody vomiting, fever Tmax 101F at home, chills, and anorexia. She does endorse occasional nonproductive cough and temporary SOB yesterday, that has since resolved. She does not know when her last BM was or when she last administered her insulin. She denies recent medication changes or sick contacts. She has never had this pain before and did not take any medications at home for symptoms. In the ED, she was afebrile T97.3F, tachycardiac HR 136 bpm, RR 18, BP 130/80 and spO2 100% room air. Lab work was significant for leukocytosis WBC 26.9 with bandemia, stable H/H and platelets. Chemistry showed normal electrolytes, stable renal function, elevated lipase 1620, glucose 219, and LDH 285. LFTs and lactic acid were within normal limits. UA showed WBC 4-6, many epi cells, 2+ bacteria, 3+ ketones, 3+ protein and 1+ blood. CT abdomen & pelvis demonstrated acute interstitial pancreatitis and calcifications in the head of the pancreas suggestive of chronic pancreatitis. She was treated with 1L NS fluids and morephine 4 mg IV for pain. She will be admitted to the medical floor further management of pancreatitis. Review of Systems Review of Systems: All systems reviewed & are unremarkable except as noted in HPI and below [facility] Past Medical History Medical History (Updated 04/25/22 @ 16:22 by Monica Kaur APRN) Asthma Diabetes 03/12/2021 hemoglobin A1c 12.4 Diabetic neuropathy GERD (gastroesophageal reflux disease) Hypercholesterolemia Hypertension Kidney stones Obesity (BMI 30.0-34.9) Osteomyelitis of ankle or foot, left, acute Psoriasis Surgical History Surgical History (Updated 04/25/22 @ 15:54 by Monica Kaur APRN) Amputation of toe of left foot 4th toe 06/24/21 History of tonsillectomy Family History Family History Grandparent Diabetes mellitus Father Diabetes mellitus Mother Diabetes mellitus Mother Hypertension Social History Social History Social History: She lives at home with 19-year-old and 14-year-old children. As well as her mother. 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 Smoking status: Never smoker Alcohol intake: never Drinks per week: 1 Alcohol use details: A COUPLE/YEAR Substance use: never Substance use type: does not use Lack of Transportation: No Lack of Food: Never True Current Housing: I Have Housing Concerned About Future Housing: No Difficulty Paying Gas/Electric Bills: No Difficulty Paying for Meds: No Currently Unemployed: No Education: Don't Know Difficulty w/ Childcare or Family Care: No Gender identity (if verbalized by the patient): Female Spiritual care concerns: No Meds Home Medications and Allergies Home Medications Medication Instructions Recorded Confirmed Type gabapentin 600 mg tablet 600 mg PO TID 03/11/21 04/25/22 History metformin 500 mg tablet 1,000 mg PO BID 03/11/21 04/25/22 History lactobacillus combo no.11 15 1 cap PO BID 05/11/21 04/25/22 History billion cell sprinkle capsule (Probiotic) insulin glargine 100 unit/mL 22 unit subcut QAM 06/24/21 04/25/22 History subcutaneous solution (Lantus U-100 Insulin) insulin lispro 100 unit/mL 8 unit subcut TIDWMEAL 06/24/21 04/25/22 History subcutaneous pen (Humalog KwikPen (U
[2022-04-25 07:56] LABS: Influenza A QL RT-PCR Negative (Negative); Influenza B QL RT-PCR Negative (Negative); SARS-CoV-2 RNA PCR Negative
[2022-04-25] MEDS: SODIUM CHLORIDE 0.9% IV 1,000 ML 200 ML IV CONT ×3 (07:58→20:20)
[2022-04-25 08:09] LABS: Glucose Point of Care 188 mg/dl (65-105)
--- NOTE | 2022-04-25 08:10 | PC.NURSE ---
Blood sugar 188
[2022-04-25 08:11] LABS: Hemoglobin A1C 8.1 % (<5.7)
[2022-04-25 08:13] LABS: Cholesterol 249 mg/dL (0-200); HDL Direct 42 mg/dL; Triglycerides 210 mg/dL (<150)
[2022-04-25 08:24] LABS: LDL Cholesterol Direct 135 mg/dL
[2022-04-25 12:47] LABS: Lipase 581 U/L (23-300)
[2022-04-25 13:38] LABS: Glucose Point of Care 177 mg/dl (65-105)
--- NOTE | 2022-04-25 15:30 | ADMGEN ---
This patient, Gem Morales, was admitted to Medical Room 261-01. Patient/family oriented to hospital policies and general routines including ID bracelet, bed and alarms, visiting hours, pain management, procedures, bathroom and other care routines, personal items, smoking policy, room service/diet, and visiting hours. Information on how to activate the Rapid Response Team has been discussed. Patient/Family are encouraged to report perceived risks to care and to ask questions if they do not understand what they are told or what they should do.
--- NOTE | 2022-04-25 15:53 | PC.NURSE ---
This RN was completing patient's admission and was informed pt had medications from home with her. During reconciliation, hydrocodone-acetaminophen was listed as a prescribed medication but pt stated she does not take it . When asked which medications pt had on hand, pt stated she only had insulin and metformin on her. RN advised patient that we would have to lock up the medications either in her closet or in our med room. Pt was hesitant and stated I'm just going to send them with my boyfriend when he gets here. RN informed pt that would be fine, however we would still need them to be locked up in the meantime. RN lowered pt's bedside table and noticed several prescription bottles in pt's purse, however pt only turned in 2 prescription bottles, 2 insulin pens, and a generic [employer] Stool Softener. Pt then zipped her purse closed. Informed RN caring for patient that it was unknown if pt had more medications on her that were not turned in.
--- NOTE | 2022-04-25 15:55 | PC.NURSE ---
Nurse educated patient on pain medication. Made especially aware of the importance of avoiding mixing any home pain medications with the hospital's medication. Patient verbalized understanding and will take IV pain medicine per hospital policy.
[2022-04-25] MEDS: MORPHINE SULFATE (*CRX) 4 MG/ML INJ IV PUSH ×2 (15:58→20:23)
[2022-04-25] MEDS: ENOXAPARIN 40 MG/0.4 ML SYRINGE SUB-Q (17:44)
[2022-04-25] MEDS: GABAPENTIN 300 MG CAPSULE 600 MG PO (17:45)
[2022-04-25 17:46] LABS: Glucose Point of Care 147 mg/dl (65-105)
[2022-04-25] MEDS: INSULIN GLARGINE (*BKC) 100 UNITS/ML SUB-Q (20:20)
[2022-04-25 21:42] LABS: Glucose Point of Care 148 mg/dl (65-105)
[2022-04-26] VITALS (8 sets, daily range): BP systolic 116–136; BP diastolic 67–77; PULSE 100–110; RESP 16–20; TEMP 36.7–37.4; O2SAT 93–97
[2022-04-26] MEDS: MORPHINE SULFATE (*CRX) 4 MG/ML INJ IV PUSH ×5 (00:15→16:16)
[2022-04-26 00:58] LABS: Glucose Point of Care 139 mg/dl (65-105)
[2022-04-26] MEDS: SODIUM CHLORIDE 0.9% IV 1,000 ML 200 ML IV CONT (03:47)
[2022-04-26 05:28] LABS: Basophils Absolute Auto 0.1 K/mm3 (0.0-0.1); Basophils Percent Auto 0.3 % (0.2-1.2); Eosinophils Absolute Auto 0.1 K/mm3 (0-0.3); Eosinophils Percent Auto 0.2 % (0-4.4); Hematocrit 36.9 % (37.0-47.0); Hemoglobin 12.1 g/dL (12.0-15.0); Immature Granulocyte Absolute 0.29 K/mm3 (0.00-0.031); Immature Granulocyte Percent A 1.3 % (0-0.5); Lymphocytes Absolute Auto 2.62 K/mm3 (0.9-3.2); Lymphocytes Percent Auto 11.5 % (18.3-44.2); Mean Corpuscular HGB Conc 32.8 g/dl (32-36); Mean Corpuscular Hemoglobin 27.8 pg (26-34); Mean Corpuscular Volume 84.8 fl (80-100); Mean Platelet Volume 10.9 fl (7.4-10.4); Monocytes Absolute Auto 1.4 K/mm3 (0.1-0.6); Monocytes Percent Auto 6.3 % (2.6-8.5); Neutrophils Absolute Auto 18.3 K/mm3 (1.3-6.7); Neutrophils Percent Auto 80.4 % (45.5-73.1); Platelet Count Result 235 k/mm3 (150-375); Red Blood Count 4.35 M/mm3 (4.2-5.4); Red Cell Distribution Width 14.2 % (11.5-14.5); White Blood Count 22.7 K/mm3 (4.5-10.0)
[2022-04-26 05:32] LABS: Alanine Aminotransferase 22 U/L (6-35); Albumin Level 3.7 g/dL (3.5-5.1); Alkaline Phosphatase 91 U/L (38-126); Anion Gap 8 mmol/L (8-16); Aspartate Amino Transferase 21 U/L (14-36); Bilirubin,Total 0.6 mg/dL (0.2-1.3); Blood Urea Nitrogen 11 mg/dL (7-17); Calcium 7.5 mg/dL (8.4-10.2); Carbon Dioxide 23 mmol/L (22-30); Chloride 106 mmol/L (98-107); Estimated Glomerular Filt Rate > 60; Glucose 129 mg/dL (65-110); Lipase 248 U/L (23-300); Potassium 3.8 mmol/L (3.4-5.0); Sodium 137 mmol/L (137-145)
[2022-04-26 06:02] LABS: Glucose Point of Care 123 mg/dl (65-105)
[2022-04-26] MEDS: GABAPENTIN 300 MG CAPSULE 600 MG PO ×3 (08:12→16:17)
[2022-04-26] MEDS: SODIUM CHLORIDE 0.9% IV 1,000 ML 100 ML IV CONT ×2 (11:35→21:11)
[2022-04-26 12:43] LABS: Glucose Point of Care 120 mg/dl (65-105)
--- NOTE | 2022-04-26 13:05 | PM.IMPN ---
Progress Note: A&P Assessment and Plan (1) Acute pancreatitis: Qualifiers: Acute pancreatitis complication: no infection or necrosis Pancreatitis type: idiopathic Qualified Code(s): K85.00 - Idiopathic acute pancreatitis without necrosis or infection Code(s): K85.90 - Acute pancreatitis without necrosis or infection, unspecified Status: Acute Assessment and Plan: c/o epigastric pain radiating to her back, lipase 1620, CT scan shows pancreatic fat stranding around the pancreas with head of pancreas with calcifications suggesting chronic pancreatitis. trial clear liquid diet, 04/26 continue IV hydration- transition to normal saline at 100 mL/hour Lipase trending down Pain control with IV morphine PRN, add p.r.n. [place] 5325 mg tablets if patient is able to take p.o. Antiemetics for nausea Triglycerides not significantly elevated RUQ US shows hepatic steatosis, but no acute/chronic cholecystitis, sludge, gallstones or obstruction. She denies alcohol intake. She takes metformin, but is not on any other medications to predispose to pancreatitis. Calcium within normal limits. (2) Hepatic steatosis: Code(s): K76.0 - Fatty (change of) liver, not elsewhere classified Status: Acute Assessment and Plan: Presumed PEREZ secondary to obesity Recommend weight loss and low fat diet (3) Abnormal urinalysis: Code(s): R82.90 - Unspecified abnormal findings in urine Status: Acute Assessment and Plan: UA with 2+ bacteria, WBC 4-6, but no leukocytes or nitrates and many epi cells suggesting contamination/mixed ashanti. WBC is 26, however this is likely from pancreatitis. Will hold antibiotics for now as she denies urinary symptoms. WBC 22.7 and trending down off antibiotics. Leukocytosis is likely secondary to acute pancreatitis. Continue to monitor. (4) Type 2 diabetes mellitus with hyperglycemia: Qualifiers: Diabetes mellitus half-way insulin use: unspecified half-way insulin use status Qualified Code(s): E11.65 - Type 2 diabetes mellitus with hyperglycemia Code(s): E11.65 - Type 2 diabetes mellitus with hyperglycemia Status: Chronic Assessment and Plan: A1c 8.1% improved from 12% in 03/2021 Continue basal lantus 5 units with sliding scale insulin Q6 hours while on clears. insulin will need to be adjusted if patient is taking oral intake. Fasting glucose 165 this a.m. Adjust insulin per blood sugars with goal <180 mg/dL. Accu-checks Q6 hours Hold metformin while inpatient. Continue gabapentin for neuropathy as pain/nausea allows (5) Asthma: Qualifiers: Asthma complication type: uncomplicated Asthma persistence: intermittent Asthma severity: mild Qualified Code(s): J45.20 - Mild intermittent asthma, uncomplicated Code(s): J45.909 - Unspecified asthma, uncomplicated Status: Chronic Assessment and Plan: Mild, intermittent without acute exacerbations. She denies maintenance inhaler use or day/nighttime symptoms. No prior hospitalizations for asthma and minimal rescue inhaler use, per patient. PRN albuterol nebs for SOB/wheezing. Stable (6) Hypertension: Qualifiers: Hypertension type: unspecified Qualified Code(s): I10 - Essential (primary) hypertension Code(s): I10 - Essential (primary) hypertension Status: Chronic Assessment and Plan: Blood pressures reviewed and mildly elevated. SBP 140-150s. She does not appear to be taking any antihypertensives per medication reconciliation. Patient did not know her medications when interviewed. Add PRN Hydralazine IV SBP>160 stable Plan CODE STATUS: FULL CODE Disposition: observation Discharge plan: possible discharge home tomorrow if tolerating diet. Time Spent With Patient Time with patient: 15 - 25 minutes Subjective Date/time seen: 04/26/22 13:05 she reports abdominal pain is somewhat improve
[2022-04-26 17:28] LABS: Glucose Point of Care 131 mg/dl (65-105)
[2022-04-26] MEDS: HYDROcodone/acetaminophen (*CRX) 5-325 MG TABLET 1 TAB PO (18:54)
[2022-04-26] MEDS: INSULIN GLARGINE (*BKC) 100 UNITS/ML SUB-Q (21:11)
[2022-04-27] VITALS (8 sets, daily range): BP systolic 119–139; BP diastolic 71–81; PULSE 81–105; RESP 16–20; TEMP 35.7–37.1; O2SAT 91–98
[2022-04-27] MEDS: HYDROcodone/acetaminophen (*CRX) 5-325 MG TABLET 1 TAB PO ×2 (01:09→16:31)
[2022-04-27 01:15] LABS: Glucose Point of Care 135 mg/dl (65-105)
[2022-04-27 06:05] LABS: Basophils Absolute Auto 0.1 K/mm3 (0.0-0.1); Basophils Percent Auto 0.4 % (0.2-1.2); Eosinophils Absolute Auto 0.2 K/mm3 (0-0.3); Eosinophils Percent Auto 1.4 % (0-4.4); Hemoglobin 11.6 g/dL (12.0-15.0); Immature Granulocyte Absolute 0.17 K/mm3 (0.00-0.031); Immature Granulocyte Percent A 1.1 % (0-0.5); Lymphocytes Absolute Auto 2.21 K/mm3 (0.9-3.2); Lymphocytes Percent Auto 14.8 % (18.3-44.2); Mean Corpuscular HGB Conc 32.2 g/dl (32-36); Mean Corpuscular Hemoglobin 27.8 pg (26-34); Mean Corpuscular Volume 86.1 fl (80-100); Mean Platelet Volume 10.8 fl (7.4-10.4); Neutrophils Absolute Auto 11.2 K/mm3 (1.3-6.7); Neutrophils Percent Auto 75.3 % (45.5-73.1); Platelet Count Result 221 k/mm3 (150-375); Red Blood Count 4.18 M/mm3 (4.2-5.4); Red Cell Distribution Width 14.1 % (11.5-14.5); White Blood Count 14.9 K/mm3 (4.5-10.0)
[2022-04-27 06:18] LABS: Alanine Aminotransferase 19 U/L (6-35); Albumin Level 3.3 g/dL (3.5-5.1); Alkaline Phosphatase 93 U/L (38-126); Anion Gap 7 mmol/L (8-16); Aspartate Amino Transferase 27 U/L (14-36); Bilirubin,Total 0.8 mg/dL (0.2-1.3); Blood Urea Nitrogen 9 mg/dL (7-17); Calcium 7.7 mg/dL (8.4-10.2); Carbon Dioxide 22 mmol/L (22-30); Chloride 103 mmol/L (98-107); Estimated Glomerular Filt Rate > 60; Glucose 122 mg/dL (65-110); Potassium 3.6 mmol/L (3.4-5.0); Sodium 132 mmol/L (137-145)
[2022-04-27] MEDS: SODIUM CHLORIDE 0.9% IV 1,000 ML 100 ML IV CONT ×2 (08:29→18:28)
[2022-04-27] MEDS: GABAPENTIN 300 MG CAPSULE 600 MG PO ×3 (08:30→16:29)
[2022-04-27] MEDS: ENOXAPARIN 40 MG/0.4 ML SYRINGE SUB-Q (08:30)
[2022-04-27] MEDS: MORPHINE SULFATE (*CRX) 4 MG/ML INJ IV PUSH ×3 (08:30→22:25)
[2022-04-27 09:15] LABS: Glucose Point of Care 126 mg/dl (65-105)
[2022-04-27 11:54] LABS: Glucose Point of Care 123 mg/dl (65-105)
--- NOTE | 2022-04-27 14:26 | PM.IMPN ---
Progress Note: A&P Assessment and Plan (1) Acute pancreatitis: Qualifiers: Acute pancreatitis complication: no infection or necrosis Pancreatitis type: idiopathic Qualified Code(s): K85.00 - Idiopathic acute pancreatitis without necrosis or infection Code(s): K85.90 - Acute pancreatitis without necrosis or infection, unspecified Status: Acute Assessment and Plan: c/o epigastric pain radiating to her back, lipase 1620, CT scan shows pancreatic fat stranding around the pancreas with head of pancreas with calcifications suggesting chronic pancreatitis. trial clear liquid diet, 04/26 continue IV hydration- transition to normal saline at 100 mL/hour Lipase trending down and within normal limits as of 04/27/2022 Pain control with IV morphine PRN, add p.r.n. [place] 5325 mg tablets if patient is able to take p.o. Antiemetics for nausea Triglycerides not significantly elevated RUQ US shows hepatic steatosis, but no acute/chronic cholecystitis, sludge, gallstones or obstruction. She denies alcohol intake. She takes metformin, but is not on any other medications to predispose to pancreatitis. Calcium within normal limits. Consulted dietitian. Increased patient's diet to full liquid. Plan to advance patient's diet as tolerated. (2) Hepatic steatosis: Code(s): K76.0 - Fatty (change of) liver, not elsewhere classified Status: Acute Assessment and Plan: Presumed PEREZ secondary to obesity Recommend weight loss and low fat diet (3) Abnormal urinalysis: Code(s): R82.90 - Unspecified abnormal findings in urine Status: Acute Assessment and Plan: UA with 2+ bacteria, WBC 4-6, but no leukocytes or nitrates and many epi cells suggesting contamination/mixed ashanti. WBC is 26, however this is likely from pancreatitis. Will hold antibiotics for now as she denies urinary symptoms. WBC 22.7 and trending down off antibiotics. Leukocytosis is likely secondary to acute pancreatitis. Continue to monitor. 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 insulin will need to be adjusted if patient is taking oral intake. Fasting glucose 165 this a.m. Adjust insulin per blood sugars with goal <180 mg/dL. Accu-checks Q6 hours Hold metformin while inpatient. Continue gabapentin for neuropathy as pain/nausea allows (5) Asthma: Qualifiers: Asthma complication type: uncomplicated Asthma persistence: intermittent Asthma severity: mild Qualified Code(s): J45.20 - Mild intermittent asthma, uncomplicated Code(s): J45.909 - Unspecified asthma, uncomplicated Status: Chronic Assessment and Plan: Mild, intermittent without acute exacerbations. She denies maintenance inhaler use or day/nighttime symptoms. No prior hospitalizations for asthma and minimal rescue inhaler use, per patient. PRN albuterol nebs for SOB/wheezing. Stable (6) Hypertension: Qualifiers: Hypertension type: unspecified Qualified Code(s): I10 - Essential (primary) hypertension Code(s): I10 - Essential (primary) hypertension Status: Chronic Assessment and Plan: Blood pressures reviewed and mildly elevated. SBP 140-150s. She does not appear to be taking any antihypertensives per medication reconciliation. Patient did not know her medications when interviewed. Add PRN Hydralazine IV SBP>160 stable Plan CODE STATUS: FULL CODE Disposition: observation Discharge plan: possible discharge home tomorrow if tolerating diet. Time
[2022-04-27 17:07] LABS: Glucose Point of Care 155 mg/dl (65-105)
[2022-04-27] MEDS: INSULIN GLARGINE (*BKC) 100 UNITS/ML SUB-Q (22:23)
[2022-04-27] MEDS: diphenhydrAMINE HCl CAP 25 MG CAPSULE PO (22:49)
[2022-04-28] VITALS (8 sets, daily range): BP systolic 115–134; BP diastolic 60–78; PULSE 72–100; RESP 16–20; TEMP 36.3–37.1; O2SAT 91–99
[2022-04-28 01:10] LABS: Glucose Point of Care 108 mg/dl (65-105)
[2022-04-28] MEDS: SODIUM CHLORIDE 0.9% IV 1,000 ML 100 ML IV CONT ×2 (04:07→18:06)
[2022-04-28] MEDS: MORPHINE SULFATE (*CRX) 4 MG/ML INJ IV PUSH ×3 (04:26→20:38)
[2022-04-28 05:23] LABS: Basophils Absolute Auto 0.1 K/mm3 (0.0-0.1); Basophils Percent Auto 0.4 % (0.2-1.2); Eosinophils Absolute Auto 0.3 K/mm3 (0-0.3); Eosinophils Percent Auto 2.1 % (0-4.4); Hematocrit 34.2 % (37.0-47.0); Hemoglobin 11.3 g/dL (12.0-15.0); Immature Granulocyte Absolute 0.12 K/mm3 (0.00-0.031); Immature Granulocyte Percent A 0.8 % (0-0.5); Lymphocytes Absolute Auto 2.32 K/mm3 (0.9-3.2); Lymphocytes Percent Auto 14.5 % (18.3-44.2); Mean Corpuscular Hemoglobin 28.2 pg (26-34); Mean Corpuscular Volume 85.3 fl (80-100); Mean Platelet Volume 10.5 fl (7.4-10.4); Monocytes Absolute Auto 1.2 K/mm3 (0.1-0.6); Monocytes Percent Auto 7.2 % (2.6-8.5); Platelet Count Result 252 k/mm3 (150-375); Red Blood Count 4.01 M/mm3 (4.2-5.4)
[2022-04-28 05:36] LABS: Alanine Aminotransferase 28 U/L (6-35); Albumin Level 3.3 g/dL (3.5-5.1); Alkaline Phosphatase 127 U/L (38-126); Anion Gap 7 mmol/L (8-16); Aspartate Amino Transferase 42 U/L (14-36); Bilirubin,Total 0.7 mg/dL (0.2-1.3); Blood Urea Nitrogen 7 mg/dL (7-17); Calcium 7.8 mg/dL (8.4-10.2); Carbon Dioxide 23 mmol/L (22-30); Chloride 101 mmol/L (98-107); Estimated Glomerular Filt Rate > 60; Glucose 142 mg/dL (65-110); Lipase 131 U/L (23-300); Potassium 3.3 mmol/L (3.4-5.0); Sodium 131 mmol/L (137-145)
[2022-04-28 08:33] LABS: Glucose Point of Care 129 mg/dl (65-105)
[2022-04-28] MEDS: GABAPENTIN 300 MG CAPSULE 600 MG PO ×3 (09:22→18:06)
[2022-04-28] MEDS: ENOXAPARIN 40 MG/0.4 ML SYRINGE SUB-Q (09:22)
[2022-04-28 12:39] LABS: Glucose Point of Care 141 mg/dl (65-105)
[2022-04-28] MEDS: polyethylene glycoL 3350 17 GM POWD.PACK PO (12:53)
[2022-04-28] MEDS: HYDROcodone/acetaminophen (*CRX) 5-325 MG TABLET 1 TAB PO ×3 (12:58→23:49)
--- NOTE | 2022-04-28 14:38 | PM.IMPN ---
Progress Note: A&P Assessment and Plan (1) Acute pancreatitis: Qualifiers: Acute pancreatitis complication: no infection or necrosis Pancreatitis type: idiopathic Qualified Code(s): K85.00 - Idiopathic acute pancreatitis without necrosis or infection Code(s): K85.90 - Acute pancreatitis without necrosis or infection, unspecified Status: Acute Assessment and Plan: c/o epigastric pain radiating to her back, lipase 1620, CT scan shows pancreatic fat stranding around the pancreas with head of pancreas with calcifications suggesting chronic pancreatitis. trial clear liquid diet, 04/26 04/27 continue IV hydration- transition to normal saline at 100 mL/hour Lipase trending down and within normal limits as of 04/27/2022 Pain control with IV morphine PRN, add p.r.n. [place] 5325 mg tablets if patient is able to take p.o. Antiemetics for nausea Triglycerides not significantly elevated RUQ US shows hepatic steatosis, but no acute/chronic cholecystitis, sludge, gallstones or obstruction. She denies alcohol intake. She takes metformin, but is not on any other medications to predispose to pancreatitis. Calcium within normal limits. Consulted dietitian. Increased patient's diet to full liquid 04/27. Plan to advance patient's diet as tolerated. 04/28 Patient still having abdominal pain today Patient has had recent abdominal ultrasound and CTA abdomen pelvis on 04/25 that revealed hepatic steatosis. Ordered HIDA scan to rule out gallbladder dysfunction. Lipase decreased to 131 Continue IV hydration Advance diet to low-fat GI consulted (2) Hepatic steatosis: Code(s): K76.0 - Fatty (change of) liver, not elsewhere classified Status: Acute Assessment and Plan: Presumed PEREZ secondary to obesity Recommend weight loss and low fat diet (3) Abnormal urinalysis: Code(s): R82.90 - Unspecified abnormal findings in urine Status: Acute Assessment and Plan: UA with 2+ bacteria, WBC 4-6, but no leukocytes or nitrates and many epi cells suggesting contamination/mixed ashanti. WBC is 26, however this is likely from pancreatitis. Will hold antibiotics for now as she denies urinary symptoms. WBC 22.7 and trending down off antibiotics. Leukocytosis is likely secondary to acute pancreatitis. Continue to monitor. 04/28/22 Due to patient still having abdominal pain plan to repeat UA. 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 insulin will need to be adjusted if patient is taking oral intake. Fasting glucose 165 this a.m. Adjust insulin per blood sugars with goal <180 mg/dL. Accu-checks Q6 hours Hold metformin while inpatient. Continue gabapentin for neuropathy as pain/nausea allows (5) Asthma: Qualifiers: Asthma complication type: uncomplicated Asthma persistence: intermittent Asthma severity: mild Qualified Code(s): J45.20 - Mild intermittent asthma, uncomplicated Code(s): J45.909 - Unspecified asthma, uncomplicated Status: Chronic Assessment and Plan: Mild, intermittent without acute exacerbations. She denies maintenance inhaler use or day/nighttime symptoms. No prior hospitalizations for asthma and minimal rescue inhaler use, per patient. PRN albuterol nebs for SOB/wheezing. Stable (6) Hypertension: Qualifiers: Hypertension type: unspecified Qualified Code(s): I10 - Essential (primary) hypertension Code(s): I10 - Essential (primary) hypertension Status: Chronic Assessment
[2022-04-28 17:34] LABS: Glucose Point of Care 149 mg/dl (65-105)
[2022-04-28] MEDS: INSULIN GLARGINE (*BKC) 100 UNITS/ML SUB-Q (20:30)
[2022-04-28] MEDS: diphenhydrAMINE HCl CAP 25 MG CAPSULE PO (20:38)
[2022-04-28 20:55] LABS: Add Urine Microscopic? YES; Appearance Urine Cloudy (Clear); Bilirubin Urine Negative (Negative); Blood Urine 2+ (Negative); Color Urine Light Yellow (Yellow); Glucose Urine UA 2+ mg/dL (Negative); Ketones Urine Negative (Negative); Leukocyte Esterase Ur Negative LEU/UL (Negative); Nitrate Urine Negative (Negative); Protein Urine 1+ mg/dL (Negative); pH Urine 6.5 (5.0-9.0)
[2022-04-28 21:00] LABS: Amorphous Sediment Urine Few; Bacteria Urine 2+ /hpf; Mucus Urine Rare /lpf; Squamous Epithelial Cell Urine Many /hpf (Few); WBC Urine 16-20 /hpf
[2022-04-28 21:56] LABS: Glucose Point of Care 176 mg/dl (65-105)
[2022-04-29] VITALS: BP 115/74; PULSE 88; RESP 18; TEMP 36.9; O2SAT 95
[2022-04-29 04:00] VITALS: BP 122/72; PULSE 84; RESP 20; TEMP 36.6; O2SAT 92
[2022-04-29] MEDS: SODIUM CHLORIDE 0.9% IV 1,000 ML 100 ML IV CONT ×2 (05:01→18:33)
[2022-04-29 06:27] LABS: Hematocrit 33.8 % (37.0-47.0); Hemoglobin 11.2 g/dL (12.0-15.0); Mean Corpuscular HGB Conc 33.1 g/dl (32-36); Mean Corpuscular Hemoglobin 27.6 pg (26-34); Mean Corpuscular Volume 83.3 fl (80-100); Mean Platelet Volume 10.4 fl (7.4-10.4); Platelet Count Result 256 k/mm3 (150-375); Red Blood Count 4.06 M/mm3 (4.2-5.4); White Blood Count 15.1 K/mm3 (4.5-10.0)
[2022-04-29 06:47] LABS: Alanine Aminotransferase 51 U/L (6-35); Albumin Level 3.4 g/dL (3.5-5.1); Alkaline Phosphatase 147 U/L (38-126); Anion Gap 6 mmol/L (8-16); Aspartate Amino Transferase 56 U/L (14-36); Bilirubin,Total 0.5 mg/dL (0.2-1.3); Blood Urea Nitrogen 9 mg/dL (7-17); Calcium 8.2 mg/dL (8.4-10.2); Carbon Dioxide 26 mmol/L (22-30); Chloride 106 mmol/L (98-107); Estimated Glomerular Filt Rate > 60; Glucose 132 mg/dL (65-110); Lipase 164 U/L (23-300); Potassium 3.4 mmol/L (3.4-5.0); Sodium 138 mmol/L (137-145)
[2022-04-29] MEDS: HYDROcodone/acetaminophen (*CRX) 5-325 MG TABLET 1 TAB PO ×3 (06:55→20:11)
[2022-04-29 08:08] VITALS: BP 127/73; PULSE 91; RESP 16; TEMP 37.1; O2SAT 94
--- NOTE | 2022-04-29 08:11 | PM.IMPN ---
Progress Note: A&P Assessment and Plan (1) Acute pancreatitis: Qualifiers: Acute pancreatitis complication: no infection or necrosis Pancreatitis type: idiopathic Qualified Code(s): K85.00 - Idiopathic acute pancreatitis without necrosis or infection Code(s): K85.90 - Acute pancreatitis without necrosis or infection, unspecified Status: Acute Assessment and Plan: c/o epigastric pain radiating to her back, lipase 1620, CT scan shows pancreatic fat stranding around the pancreas with head of pancreas with calcifications suggesting chronic pancreatitis. trial clear liquid diet, 04/26 04/27 continue IV hydration- transition to normal saline at 100 mL/hour Lipase trending down and within normal limits as of 04/27/2022 Pain control with IV morphine PRN, add p.r.n. [place] 5325 mg tablets if patient is able to take p.o. Antiemetics for nausea Triglycerides not significantly elevated RUQ US shows hepatic steatosis, but no acute/chronic cholecystitis, sludge, gallstones or obstruction. She denies alcohol intake. She takes metformin, but is not on any other medications to predispose to pancreatitis. Calcium within normal limits. Consulted dietitian. Increased patient's diet to full liquid 04/27. Plan to advance patient's diet as tolerated. 04/28 Patient still having abdominal pain today Patient has had recent abdominal ultrasound and CTA abdomen pelvis on 04/25 that revealed hepatic steatosis. Ordered HIDA scan to rule out gallbladder dysfunction. Lipase decreased to 131 Continue IV hydration Advance diet to low-fat GI consulted 04/29 Patient still having abdominal pain today, when touching the patient's abdomen elicits a significant amount of pain and the patient bends over and cries out in pain. I checked a lactic acid rule out ischemia and it was within normal limits. GI has been consulted. (2) Hepatic steatosis: Code(s): K76.0 - Fatty (change of) liver, not elsewhere classified Status: Acute Assessment and Plan: Presumed PEREZ secondary to obesity Recommend weight loss and low fat diet (3) Abnormal urinalysis: Code(s): R82.90 - Unspecified abnormal findings in urine Status: Acute Assessment and Plan: UA with 2+ bacteria, WBC 4-6, but no leukocytes or nitrates and many epi cells suggesting contamination/mixed ashanti. WBC is 26, however this is likely from pancreatitis. Will hold antibiotics for now as she denies urinary symptoms. WBC 22.7 and trending down off antibiotics. Leukocytosis is likely secondary to acute pancreatitis. Continue to monitor. 04/28/22 Due to patient still having abdominal pain plan to repeat UA. (4) Type 2 diabetes mellitus with hyperglycemia: Qualifiers: Diabetes mellitus terminal makeup operator insulin use: unspecified group home insulin use status Qualified Code(s): E11.65 - Type 2 diabetes mellitus with hyperglycemia Code(s): E11.65 - Type 2 diabetes mellitus with hyperglycemia Status: Chronic Assessment and Plan: A1c 8.1% improved from 12% in 03/2021 Continue basal lantus 5 units with sliding scale insulin Q6 hours while on clears. insulin will need to be adjusted if patient is taking oral intake. Fasting glucose 165 this a.m. Adjust insulin per blood sugars with goal <180 mg/dL. Accu-checks Q6 hours Hold metformin while inpatient. Continue gabapentin for neuropathy as pain/nausea allows (5) Asthma: Qualifiers: Asthma complication type: uncomplicated Asthma persistence: intermittent Asthma severity: mild Qualified Code(s): J45.20 - Mild intermittent asthma, uncomplicated Code(s): J45.909 - Unspecified asthma, uncomplicated Status: Chronic Assessment and Plan: Mild, intermittent without acute exacerbations. She denies maintenance inhaler use or day/nighttime symptoms. No prior hospitalizations for asthma and minimal rescue inhaler use, per patient. PRN
[2022-04-29 08:28] LABS: Glucose Point of Care 145 mg/dl (65-105)
[2022-04-29 10:05] LABS: Basophils Absolute Auto 0.1 K/mm3 (0.0-0.1); Basophils Percent Auto 0.6 % (0.2-1.2); Eosinophils Absolute Auto 0.4 K/mm3 (0-0.3); Hematocrit 35.4 % (37.0-47.0); Hemoglobin 11.3 g/dL (12.0-15.0); Immature Granulocyte Absolute 0.13 K/mm3 (0.00-0.031); Immature Granulocyte Percent A 0.9 % (0-0.5); Lymphocytes Absolute Auto 2.75 K/mm3 (0.9-3.2); Lymphocytes Percent Auto 18.9 % (18.3-44.2); Mean Corpuscular HGB Conc 31.9 g/dl (32-36); Mean Corpuscular Hemoglobin 27.7 pg (26-34); Mean Corpuscular Volume 86.8 fl (80-100); Mean Platelet Volume 10.9 fl (7.4-10.4); Monocytes Absolute Auto 1.2 K/mm3 (0.1-0.6); Monocytes Percent Auto 8.1 % (2.6-8.5); Neutrophils Absolute Auto 9.9 K/mm3 (1.3-6.7); Neutrophils Percent Auto 68.5 % (45.5-73.1); Platelet Count Result 266 k/mm3 (150-375); Red Blood Count 4.08 M/mm3 (4.2-5.4); Red Cell Distribution Width 14.5 % (11.5-14.5); White Blood Count 14.5 K/mm3 (4.5-10.0)
[2022-04-29 10:57] LABS: Lactic Acid Reflex 0.7 mmol/L (0.7-2.0)
[2022-04-29 12:36] LABS: Glucose Point of Care 120 mg/dl (65-105)
[2022-04-29] MEDS: MORPHINE SULFATE (*CRX) 2 MG/ML INJ IV PUSH (14:37)
--- NOTE | 2022-04-29 15:43 | WPDGICN ---
Assessment and Plan Assessment and plan (1) Acute pancreatitis: Qualifiers: Acute pancreatitis complication: no infection or necrosis Pancreatitis type: idiopathic Qualified Code(s): K85.00 - Idiopathic acute pancreatitis without necrosis or infection Code(s): K85.90 - Acute pancreatitis without necrosis or infection, unspecified Status: Acute Assessment and Plan: pain control, feeling better CL diet and will reassess GB was normal, mild elevated transaminases, denies alcohol changes of possible chronic pancreatitis but denies previous episode, h/o DM (2) Hepatic steatosis: Code(s): K76.0 - Fatty (change of) liver, not elsewhere classified Status: Acute (3) Type 2 diabetes mellitus with hyperglycemia: Qualifiers: Diabetes mellitus snf insulin use: unspecified snf insulin use status Qualified Code(s): E11.65 - Type 2 diabetes mellitus with hyperglycemia Code(s): E11.65 - Type 2 diabetes mellitus with hyperglycemia Status: Chronic Assessment and Plan: on meds (4) Nausea and vomiting in adult: Code(s): R11.2 - Nausea with vomiting, unspecified Status: Acute Assessment and Plan: better (5) Leukocytosis: Qualifiers: Leukocytosis type: unspecified Qualified Code(s): D72.829 - Elevated white blood cell count, unspecified Code(s): D72.829 - Elevated white blood cell count, unspecified Status: Resolved Assessment and Plan: monitor, probably due to pancreatitis/stress response GI Consult Note Consult date/time: 04/29/22 15:43 Reason for consult: pancreatitis, n/v HPI: Gem Morales is a 37 year old female with history of insulin dependent diabetes mellitus with neuropathy, GERD, hypertension, obesity BMI 34, intermittent asthma, and osteomyelitis s/p amputation in June of this year. She came to the ED with new onset of severe pain in upper abdomen radiating to her back. Also had nausea, non-bloody vomiting, fever Tmax 101F at home, chills, and anorexia. She denies recent medication changes or sick contacts. She has never had this pain before, denies alcohol use. In the ED lab work was significant for leukocytosis WBC 26.9 with bandemia, stable H/H and platelets. She had elevated lipase 1620, glucose 219, and LDH 285. transaminases 50's, normal lactic acid. CT abdomen & pelvis demonstrated acute interstitial pancreatitis and calcifications in the head of the pancreas suggestive of chronic pancreatitis.?She still has pain but improved after pain med, still npo. Review of Systems Constitutional: Constitutional: Reports chills Eyes: Eyes: Denies blurry vision ENT: Reports Normal hearing present Cardiovascular: Cardiovascular: Denies chest pain Respiratory: Respiratory: Denies hemoptysis Gastrointestinal: Gastrointestinal: Reports abdominal pain, Reports nausea and Reports vomiting Genitourinary: Genitourinary: Denies urinary incontinence Musculoskeletal: Musculoskeletal: Denies myalgias Integumentary/Breasts: Skin/Breast: Denies dry skin Neurologic: Denies Abnormal speech present Psychiatric: Psychiatric: Denies behavioral changes [facility] Past Medical History Medical History (Updated 04/29/22 @ 15:47 by Issac Delvalle MD) Asthma Diabetes 03/12/2021 hemoglobin A1c 12.4 Diabetic neuropathy GERD (gastroesophageal reflux disease) Hypercholesterolemia Hypertension Kidney stones Nausea and vomiting in adult Obesity (BMI 30.0-34.9) Osteomyelitis of ankle or foot, left, acute Psoriasis Surgical History Surgical History (Updated 04/25/22 @ 15:54 by Monica Kaur APRN) Amputation of toe of left foot 4th toe 06/24/21 History of tonsillectomy Family History Family History Grandparent Diabetes mellitus Father Diabetes mellitus Mother Diabetes mellitus Mother Hypertension Social His
[2022-04-29 16:08] VITALS: BP 136/80; PULSE 88; RESP 18; TEMP 37; O2SAT 97
[2022-04-29] MEDS: GABAPENTIN 300 MG CAPSULE 600 MG PO (16:22)
[2022-04-29 17:10] LABS: Hepatitis B Surface Antigen Negative (Negative)
[2022-04-29 17:16] LABS: Glucose Point of Care 115 mg/dl (65-105)
[2022-04-29 17:24] LABS: HAV RESULT Negative (Negative); Hepatitis B Core IgM Result Negative (Negative); Hepatitis C Virus Antibody Negative (Negative)
[2022-04-29 20:00] VITALS: BP 132/71; PULSE 86; RESP 16; TEMP 36.6; O2SAT 99
[2022-04-29] MEDS: INSULIN GLARGINE (*BKC) 100 UNITS/ML SUB-Q (20:08)
[2022-04-29] MEDS: diphenhydrAMINE HCl CAP 25 MG CAPSULE PO (20:15)
[2022-04-29 23:06] LABS: Glucose Point of Care 128 mg/dl (65-105)
[2022-04-30] MEDS: HYDROcodone/acetaminophen (*CRX) 5-325 MG TABLET 1 TAB PO (01:15)
[2022-04-30 04:00] VITALS: BP 117/68; PULSE 78; RESP 16; TEMP 36.8; O2SAT 100
[2022-04-30] MEDS: SODIUM CHLORIDE 0.9% IV 1,000 ML 100 ML IV CONT (04:33)
[2022-04-30 05:41] LABS: Basophils Absolute Auto 0.1 K/mm3 (0.0-0.1); Basophils Percent Auto 0.4 % (0.2-1.2); Eosinophils Absolute Auto 0.4 K/mm3 (0-0.3); Eosinophils Percent Auto 3.3 % (0-4.4); Hematocrit 31.7 % (37.0-47.0); Hemoglobin 10.3 g/dL (12.0-15.0); Immature Granulocyte Absolute 0.21 K/mm3 (0.00-0.031); Immature Granulocyte Percent A 1.8 % (0-0.5); Lymphocytes Absolute Auto 2.27 K/mm3 (0.9-3.2); Lymphocytes Percent Auto 19.5 % (18.3-44.2); Mean Corpuscular HGB Conc 32.5 g/dl (32-36); Mean Corpuscular Hemoglobin 27.5 pg (26-34); Mean Corpuscular Volume 84.5 fl (80-100); Mean Platelet Volume 10.2 fl (7.4-10.4); Monocytes Percent Auto 8.2 % (2.6-8.5); Neutrophils Absolute Auto 7.8 K/mm3 (1.3-6.7); Neutrophils Percent Auto 66.8 % (45.5-73.1); Platelet Count Result 256 k/mm3 (150-375); Red Blood Count 3.75 M/mm3 (4.2-5.4); White Blood Count 11.7 K/mm3 (4.5-10.0)
[2022-04-30 05:53] LABS: Alanine Aminotransferase 31 U/L (6-35); Alkaline Phosphatase 116 U/L (38-126); Anion Gap 3 mmol/L (8-16); Aspartate Amino Transferase 27 U/L (14-36); Bilirubin,Total 0.3 mg/dL (0.2-1.3); Blood Urea Nitrogen 7 mg/dL (7-17); Calcium 7.7 mg/dL (8.4-10.2); Carbon Dioxide 26 mmol/L (22-30); Chloride 104 mmol/L (98-107); Estimated Glomerular Filt Rate > 60; Glucose 134 mg/dL (65-110); Potassium 3.1 mmol/L (3.4-5.0); Sodium 133 mmol/L (137-145)
--- NOTE | 2022-04-30 08:02 | PM.IMPN ---
Progress Note: A&P Assessment and Plan (1) Acute pancreatitis: Qualifiers: Acute pancreatitis complication: no infection or necrosis Pancreatitis type: idiopathic Qualified Code(s): K85.00 - Idiopathic acute pancreatitis without necrosis or infection Code(s): K85.90 - Acute pancreatitis without necrosis or infection, unspecified Status: Acute Assessment and Plan: c/o epigastric pain radiating to her back, lipase 1620, CT scan shows pancreatic fat stranding around the pancreas with head of pancreas with calcifications suggesting chronic pancreatitis. trial clear liquid diet, 04/26 04/27 continue IV hydration- transition to normal saline at 100 mL/hour Lipase trending down and within normal limits as of 04/27/2022 Pain control with IV morphine PRN, add p.r.n. [place] 5325 mg tablets if patient is able to take p.o. Antiemetics for nausea Triglycerides not significantly elevated RUQ US shows hepatic steatosis, but no acute/chronic cholecystitis, sludge, gallstones or obstruction. She denies alcohol intake. She takes metformin, but is not on any other medications to predispose to pancreatitis. Calcium within normal limits. Consulted dietitian. Increased patient's diet to full liquid 04/27. Plan to advance patient's diet as tolerated. 04/28 Patient still having abdominal pain today Patient has had recent abdominal ultrasound and CTA abdomen pelvis on 04/25 that revealed hepatic steatosis. Ordered HIDA scan to rule out gallbladder dysfunction. Lipase decreased to 131 Continue IV hydration Advance diet to low-fat GI consulted 04/29 Patient still having abdominal pain today, when touching the patient's abdomen elicits a significant amount of pain and the patient bends over and cries out in pain. I checked a lactic acid rule out ischemia and it was within normal limits. GI has been consulted. 04/30 Hepatobiliary Scan Nuclear Medicine revealed chronic cholecystitis. This could explain patients acute on chronic pancreatitis. Pt has a hx of intermittent abdominal pain in the past but never this bad. Does not have hx of previous acute pancreatitis. General surgery consulted for possible cholecystectomy. GI has evaluated pt and have agreed to follow, appreciate their recommendations. (2) Hepatic steatosis: Code(s): K76.0 - Fatty (change of) liver, not elsewhere classified Status: Acute Assessment and Plan: Presumed PEREZ secondary to obesity Recommend weight loss and low fat diet (3) Abnormal urinalysis: Code(s): R82.90 - Unspecified abnormal findings in urine Status: Acute Assessment and Plan: UA with 2+ bacteria, WBC 4-6, but no leukocytes or nitrates and many epi cells suggesting contamination/mixed ashanti. WBC is 26, however this is likely from pancreatitis. Will hold antibiotics for now as she denies urinary symptoms. WBC 22.7 and trending down off antibiotics. Leukocytosis is likely secondary to acute pancreatitis. Continue to monitor. 04/28/22 Due to patient still having abdominal pain plan to repeat UA. 04/30 Pt not having urinary symptoms and urine appears to be contaminated. Will not treat for now and continue to monitor. (4) Type 2 diabetes mellitus with hyperglycemia: Qualifiers: Diabetes mellitus mcc insulin use: unspecified terminal operations manager insulin use status Qualified Code(s): E11.65 - Type 2 diabetes mellitus with hyperglycemia Code(s): E11.65 - Type 2 diabetes mellitus with hyperglycemia Status: Chronic Assessment and Plan: A1c 8.1% improved from 12% in 03/2021 Continue basal lantus 5 units with sliding scale insulin Q6 hours while on clears. insulin will need to be adjusted if patient is taking oral intake. Fasting glucose 165 this a.m. Adjust insulin per blood sugars with goal <180 mg/dL. Accu-checks Q6 hours Hold metformin while inpatient. Continue gabapentin for neuropathy as biju
[2022-04-30 08:43] LABS: Glucose Point of Care 111 mg/dl (65-105)
[2022-04-30] MEDS: ENOXAPARIN 40 MG/0.4 ML SYRINGE SUB-Q (09:37)
[2022-04-30] MEDS: GABAPENTIN 300 MG CAPSULE 600 MG PO ×2 (09:37→13:26)
[2022-04-30] MEDS: ACETAMINOPHEN 325 MG TABLET 650 MG PO ×2 (09:38→13:32)
[2022-04-30] MEDS: polyethylene glycoL 3350 17 GM POWD.PACK PO (09:38)
[2022-04-30] MEDS: DOCUSATE SODIUM 100 MG CAPSULE PO (09:52)
--- NOTE | 2022-04-30 10:43 | WPDGIPROGNO ---
Progress Note: A&P Assessment and Plan (1) Acute pancreatitis: Qualifiers: Acute pancreatitis complication: no infection or necrosis Pancreatitis type: idiopathic Qualified Code(s): K85.00 - Idiopathic acute pancreatitis without necrosis or infection Code(s): K85.90 - Acute pancreatitis without necrosis or infection, unspecified Status: Acute Assessment and Plan: improving, liver enzymes back to normal first episode per patient, imaging showed calcification in pancreas ? chronic surgery to see patient but no obvious GS liquid diet and advance as tolerated pain control with oral med, also given miralax (2) Nausea and vomiting in adult: Code(s): R11.2 - Nausea with vomiting, unspecified Status: Acute Assessment and Plan: improving (3) Hepatic steatosis: Code(s): K76.0 - Fatty (change of) liver, not elsewhere classified Status: Acute (4) Type 2 diabetes mellitus with hyperglycemia: Qualifiers: Diabetes mellitus alf insulin use: unspecified alf insulin use status Qualified Code(s): E11.65 - Type 2 diabetes mellitus with hyperglycemia Code(s): E11.65 - Type 2 diabetes mellitus with hyperglycemia Status: Chronic (5) Elevated liver enzymes: Code(s): R74.8 - Abnormal levels of other serum enzymes Status: Acute Assessment and Plan: normalization of liver enzymes bilirubin was normal Subjective Date/time seen: 04/30/22 10:43 Interval history: overall better but still with pain, she just took tylenol and would like to try without iv narcotics before going home. Still has not had a BM, just took miralax and stool softners Review of Systems Review of Systems: All systems reviewed & are unremarkable except as noted in HPI and below Exam Const: General: no acute distress Other: obese HENMT: Face/Nose/Sinus: Normal nares present Eyes: General: appearance normal, both eyes and all related structures Neck: Neck: no JVD Resp: Auscultation: clear to auscultation bilaterally Cardio: Rate: regular rate Rhythm: regular rhythm GI: GI Palp: Yes Soft to palpation, Yes Tenderness to palpation present (GI) (mild ttp in epigastric, no rebound) and No Guarding due to palpation present (GI) Auscultation: normal bowel sounds Skin: General skin exam: normal color Neuro: Speech: normal speech Motor exam (neuro): 5/5 motor strength present throughout Extrem: General: normal to inspection Psych: Mental Status: mental status grossly normal Objective Data Vital Signs Vital Signs: Vital Signs - 24 hr 04/29/22 16:08 04/29/22 20:00 04/29/22 20:00 Temperature 98.6 F 97.8 F Pulse Rate 88 86 Respiratory Rate 18 16 Blood Pressure 136/80 132/71 Pulse Oximetry 97 99 Oxygen Delivery Room Air 04/30/22 04:00 Temperature 98.2 F Pulse Rate 78 Respiratory Rate 16 Blood Pressure 117/68 Pulse Oximetry 100 Oxygen Delivery Intake/Output Intake/Output: Intake & Output 04/27/22 04/28/22 04/29/22 04/30/22 23:59 23:59 23:59 23:59 Intake Total 3400 3420 3240 1550 Balance 3400 3420 3240 1550 Meds/Results Medications: Active Medications Generic Name Dose Route Start Last Admin Trade Name Freq PRN Reason Stop Dose Admin Acetaminophen 650 mg 04/25/22 16:26 04/30/22 09:38 Acetaminophen 325 Mg Tablet PO 650 mg Q4H PRN Administration Mild Pain (1-3) or Fever Hydrocodone Bitart/Acetaminophen 1 tab 04/26/22 08:57 04/30/22 01:15 Hydrocodone/Acetaminophen (*Crx) 5-325 Mg Tablet PO 1 tab Q4H PRN Administration Pain Rated 4-6 Albuterol 2.5 mg 04/25/22 10:53 Albuterol Sulfate Neb 2.5 Mg/3 Ml Inh INHALATION Q4HRT PRN Shortness Of Breath Or Wheezing Dextrose 12.5 gm 04/25/22 07:20 Dextrose 50% 25 Gm/50 Ml Syringe IV PUSH PRN PRN Hypoglycemia Protocol Diphenhydramine HCl 25 mg 04/27/22 22:28 04/29/22 20:15 Diphenhydramine H
[2022-04-30 11:12] VITALS: O2SAT 94
[2022-04-30 11:24] VITALS: BP 138/71; PULSE 89; RESP 18; TEMP 36.9; O2SAT 97
--- NOTE | 2022-04-30 11:58 | PM.CNGS ---
Assessment and Plan Assessment and plan (1) Acute pancreatitis: Qualifiers: Acute pancreatitis complication: no infection or necrosis Pancreatitis type: idiopathic Qualified Code(s): K85.00 - Idiopathic acute pancreatitis without necrosis or infection Code(s): K85.90 - Acute pancreatitis without necrosis or infection, unspecified Status: Acute Assessment and Plan: I have reviewed the patient's CT and discussed all of the imaging findings with the patient. She presented with acute pancreatitis and does not have any history of heavy alcohol use. Gallbladder seems likely as a potential cause, however her imaging has not shown any definite signs of gallbladder as the cause. She could have some signs of chronic cholecystitis, but she has no signs of gallstones to suggest this would be a recurring problem. She does not require emergent surgery at this time since her pain is gradually improving and pancreatitis appears to be resolving. She is okay to be discharged when medically stable. I will follow-up with patient as an outpatient discuss proceeding with elective cholecystectomy at some point in the future. Optimizing glucose control will help perioperative risks. Would recommend low-fat diet to prevent recurrent pancreatitis. (2) Type 2 diabetes mellitus with hyperglycemia: Qualifiers: Diabetes mellitus exterminator helper insulin use: unspecified exterminator helper insulin use status Qualified Code(s): E11.65 - Type 2 diabetes mellitus with hyperglycemia Code(s): E11.65 - Type 2 diabetes mellitus with hyperglycemia Status: Chronic (3) Elevated liver enzymes: Code(s): R74.8 - Abnormal levels of other serum enzymes Status: Acute History of Present Illness Consult details Consult date: 04/30/22 Reason for consult: other (Possible chronic cholecystitis) Narrative: This is a 37-year-old woman who I am asked to see for possible chronic cholecystitis as a cause for acute pancreatitis. She was admitted to the hospital 5 days ago with findings of acute pancreatitis. She began having abdominal pain about 2 days prior to presentation. She does not recall anything that she ate that cause the pain. She denies any alcohol use. She has never experienced symptoms like this past. Her pain has gradually improved since being admitted. Her initial imaging showed evidence of acute pancreatitis but no evidence of cholelithiasis or cholecystitis. She then had a gallbladder ultrasound which was normal aside from hepatic steatosis. She then also had a HIDA scan which still showed patent cystic duct excluding acute cholecystitis. Review of Systems Review of Systems: All systems reviewed & are unremarkable except as noted in HPI and below Eyes: Eyes: Denies change in vision ENT: Denies hearing loss, Denies neck pain and Denies sore throat Cardiovascular: Cardiovascular: Denies chest pain and Denies dyspnea Respiratory: Respiratory: Denies cough, Denies dyspnea and Denies wheezing Gastrointestinal: Gastrointestinal: Reports as per HPI Genitourinary: Genitourinary: Denies hematuria and Denies dysuria Musculoskeletal: Musculoskeletal: Denies arthralgias, Denies joint swelling and Denies neck pain Allergic/Immunologic: Allergic/Immunologic: Denies wheezing [facility] Past Medical History Medical History (Updated 04/30/22 @ 10:45 by Issac Delvalle MD) Asthma Diabetes 03/12/2021 hemoglobin A1c 12.4 Diabetic neuropathy Elevated liver enzymes GERD (gastroesophageal reflux disease) Hypercholesterolemia Hypertension Kidney stones Nausea and vomiting in adult Obesity (BMI 30.0-34.9) Osteomyelitis of ankle or foot, left, acute Psoriasis Surgical History Surgical History (Updated 04/25/22 @ 15:54 by Monica Kaur APRN) Amputation of toe of left foot 4th toe 06/24/21 History of tonsillectomy Family History Family History
[2022-04-30 12:16] LABS: Glucose Point of Care 165 mg/dl (65-105)
--- NOTE | 2022-04-30 13:15 | PM.DS ---
DS: Admitting Diagnosis Discharge Date 04/30/22 Admitting Diagnosis Acute pancreatitis DS: Discharge Diagnosis Discharge Diagnosis (1) Acute pancreatitis: Qualifiers: Acute pancreatitis complication: no infection or necrosis Pancreatitis type: idiopathic Qualified Code(s): K85.00 - Idiopathic acute pancreatitis without necrosis or infection Code(s): K85.90 - Acute pancreatitis without necrosis or infection, unspecified Status: Acute Assessment and Plan: c/o epigastric pain radiating to her back, lipase 1620, CT scan shows pancreatic fat stranding around the pancreas with head of pancreas with calcifications suggesting chronic pancreatitis. trial clear liquid diet, 04/26 04/27 continue IV hydration- transition to normal saline at 100 mL/hour Lipase trending down and within normal limits as of 04/27/2022 Pain control with IV morphine PRN, add p.r.n. [employer] 5325 mg tablets if patient is able to take p.o. Antiemetics for nausea Triglycerides not significantly elevated RUQ US shows hepatic steatosis, but no acute/chronic cholecystitis, sludge, gallstones or obstruction. She denies alcohol intake. She takes metformin, but is not on any other medications to predispose to pancreatitis. Calcium within normal limits. Consulted dietitian. Increased patient's diet to full liquid 04/27. Plan to advance patient's diet as tolerated. 04/28 Patient still having abdominal pain today Patient has had recent abdominal ultrasound and CTA abdomen pelvis on 04/25 that revealed hepatic steatosis. Ordered HIDA scan to rule out gallbladder dysfunction. Lipase decreased to 131 Continue IV hydration Advance diet to low-fat GI consulted 04/29 Patient still having abdominal pain today, when touching the patient's abdomen elicits a significant amount of pain and the patient bends over and cries out in pain. I checked a lactic acid rule out ischemia and it was within normal limits. GI has been consulted. 04/30 Hepatobiliary Scan Nuclear Medicine revealed chronic cholecystitis. This could explain patients acute on chronic pancreatitis. Pt has a hx of intermittent abdominal pain in the past but never this bad. Does not have hx of previous acute pancreatitis. General surgery consulted for possible cholecystectomy. GI has evaluated pt and have agreed to follow, appreciate their recommendations. (2) Hepatic steatosis: Code(s): K76.0 - Fatty (change of) liver, not elsewhere classified Status: Acute Assessment and Plan: Presumed PEREZ secondary to obesity Recommend weight loss and low fat diet (3) Abnormal urinalysis: Code(s): R82.90 - Unspecified abnormal findings in urine Status: Acute Assessment and Plan: UA with 2+ bacteria, WBC 4-6, but no leukocytes or nitrates and many epi cells suggesting contamination/mixed ashanti. WBC is 26, however this is likely from pancreatitis. Will hold antibiotics for now as she denies urinary symptoms. WBC 22.7 and trending down off antibiotics. Leukocytosis is likely secondary to acute pancreatitis. Continue to monitor. 04/28/22 Due to patient still having abdominal pain plan to repeat UA. 04/30 Pt not having urinary symptoms and urine appears to be contaminated. Will not treat for now and continue to monitor. (4) Type 2 diabetes mellitus with hyperglycemia: Qualifiers: Diabetes mellitus halfway insulin use: unspecified halfway insulin use status Qualified Code(s): E11.65 - Type 2 diabetes mellitus with hyperglycemia Code(s): E11.65 - Type 2 diabetes mellitus with hyperglycemia Status: Chronic Assessment and Plan: A1c 8.1% improved from 12% in 03/2021 Continue basal lantus 5 units with sliding scale insulin Q6 hours while on clears. insulin will need to be adjusted if patient is taking oral intake. Fasting glucose 165 this a.m. Adjust insulin per blood sugars with goal <180 mg/dL.
[2022-04-30 17:44] LABS: Glucose Point of Care 140 mg/dl (65-105)
== END 2022-04-30 18:33 | disposition home or self-care (01) | DRG 282 ==
LOC: ANHED 04-25 03:07 → ANH3MEDSUR 04-25 09:42 → ANH2MED 04-25 15:01
PROVIDERS: Nurse Practitioner Family; Admitting Provider Internal Medicine; Emergency Provider Emergency Medicine; PCP Internal Medicine Gastroenterology; Visit Provider Internal Medicine Critical Care Medicine
DX: K85.00 Idiopathic acute pancreatitis without necrosis or infection (principal); E11.40 Type 2 diabetes mellitus with diabetic neuropathy, unspecified; K75.81 Nonalcoholic steatohepatitis (NASH); E11.65 Type 2 diabetes mellitus with hyperglycemia; E66.9 Obesity, unspecified; Z68.34 Body mass index [BMI] 34.0-34.9, adult; J45.20 Mild intermittent asthma, uncomplicated; Z20.822 Contact with and (suspected) exposure to COVID-19; I10 Essential (primary) hypertension; K21.9 Gastro-esophageal reflux disease without esophagitis; Z83.3 Family history of diabetes mellitus; Z79.84 Long term (current) use of oral hypoglycemic drugs; Z82.49 Family history of ischemic heart disease and other diseases of the circulatory system; Z79.4 Long term (current) use of insulin; Z79.899 Other long term (current) drug therapy
CPT/HCPCS: 36415; 74177; 76705; 78227; 80053; 80061; 80074; 81001; 81025; 82948; 83036; 83605; 83615; 83690; 85025; 85027; 87086; 87088; 87636; 96361; 96374; 96375; 99285; A9270; A9537; G0378; G0379; J1650; J1815; J2270; J2405; J7030; Q9967

== ENCOUNTER 2022-06-14 11:17 | Outpatient (CLI) | payer OTHER, SELFPAY ==
--- NOTE | 2022-06-14 11:27 | ECG_ITS ---
Measurements Intervals [place] Rate: 82 P: 46 PA: 176 QRS: 26 QRSD: 75 T: 37 QT: 348 QTc: 407 Interpretive Statements SINUS RHYTHM ANTEROSEPTAL MYOCARDIAL INFARCTION [40+ ms Q WAVE IN V1-V4], PROBABLY OLD COMPARED TO ECG 05/14/2021 09:47:25 NO SIGNIFICANT CHANGES Electronically Signed On 06-14-2022 14:54:45 GROUP RESERVATIONS COORDINATOR by Johan Rogel M.D.
[2022-06-14 12:05] LABS: Amylase 53 U/L (30-110); Anion Gap 6 mmol/L (8-16); Blood Urea Nitrogen 10 mg/dL (7-17); Calcium 8.8 mg/dL (8.4-10.2); Carbon Dioxide 28 mmol/L (22-30); Chloride 103 mmol/L (98-107); Estimated Glomerular Filt Rate > 60; Glucose 203 mg/dL (65-110); Potassium 4.7 mmol/L (3.4-5.0); Sodium 137 mmol/L (137-145)
== END 2022-06-14 11:18 | disposition home or self-care (01) ==
LOC: ANHSURGERY 11:21
PROVIDERS: Anesthesiology; PCP Internal Medicine Gastroenterology; Visit Provider Surgery
DX: Z01.818 Encounter for other preprocedural examination (principal); K81.1 Chronic cholecystitis; E11.9 Type 2 diabetes mellitus without complications; R94.31 Abnormal electrocardiogram [ECG] [EKG]
CPT/HCPCS: 36415; 80048; 82150; 93005

== ENCOUNTER 2022-06-20 00:11 | Day surgery (SDC) | payer OTHER, SELFPAY ==
[2022-06-07 13:02] VITALS: BMI 35.3
--- NOTE | 2022-06-07 13:05 | SUR.PREOP ---
Report to the Outpatient Waiting Room, entrance under the green pavilion located off [facility], at time ___1000____ on date ____06/20/22___. Planned Procedure Time: ___1200____. Time changes happen often and if your time is changed the preop area will call you the afternoon before. - You and your visitor will be asked to self-screen and do not enter if you have any COVID symptoms. - Only one visitor is requested with a max of two and NO children visitors are allowed at this time. - The patient visitor may be requested to leave or wait in car when not with patient due to distancing restrictions. - A mask is optional within the hospital at this time. Patients may have clear liquids (water, carbonated beverages, clear teas, apple juice) until 3 hours prior to surgery with a maximum of 20 ounces. - No food from midnight until time of surgery - Infants may have breast milk until 4 hours before surgery, formula 6 hours prior to surgery. - Children will be allowed to drink immediately following surgery. If applicable, please bring a bottle or sippy cup to assist with drinking. Juice, water, soda, and popsicles are readily available. For infants on formula, please bring formula the day of surgery. Pacifiers are allowed. Take the following medications with a SIP of water the morning of surgery: MAY TAKE GABAPENTIN DAY OF PROCEDURE DO NOT STOP ANY OF YOUR OTHER PRESCRIPTION MEDICATIONS PRIOR TO SURGERY ?EXCEPT THE FOLLOWING Medications to discontinue per physician N/A Date to take last dose N/A Please no make-up, nail italian, hairspray, perfume, deodorant, or body powder the day of surgery. No jewelry (including any body piercings) or valuables the day of surgery, leave them at home. Please take a shower or bath the night before, or the morning of, surgery with an antibacterial soap. Wear comfortable, loose fitting clothing. Children are encouraged to wear pajamas. - Jewelry must be removed prior to entering the operating room. Rings and piercings that are not removed may be cut off. - The hospital will not accept responsibility for valuables. - Please leave all valuables, including medications, at home the day of surgery. If you are going home after surgery, a licensed yard driver must drive you home. - NO public transportation without another adult if you receive anesthesia. - We recommend that an adult stay with you for 24 hours following discharge. - We also recommend that you do not drive, make important decision, drink alcoholic beverages, or take any drugs that were not prescribed by your health care provider for at least 24 hours after your discharge time. For Pediatric surgeries, we recommend two adults accompany the child home. Follow any additional instructions given to you from your surgeon. If you or anyone in your household have experienced Covid symptoms in the past week, please notify your surgeon or the nurse liaison at the phone number below for possible testing. Telephone instructions given to JUAN J MAURICIO and asked if any additional questions and then verbalized understanding. Patient advised to call surgeon office or pre surgery nurse liaison [phone] if any additional questions.
[2022-06-20] VITALS (9 sets, daily range): BP systolic 99–152; BP diastolic 67–90; PULSE 76–92; RESP 12–16; TEMP 36.4–36.8; O2SAT 93–100
--- NOTE | ~2022-06-20 | XR_ITS ---
EXAMINATION: XR cholangiogram surg 1st inj DATE: 06/20/2022 12:55 INDICATION: Laparoscopic cholecystectomy TECHNIQUE: 69 intraoperative fluoroscopic images of the right upper quadrant were obtained during int raoperative cholangiography performed by the surgeon. I was not present in the operating room. Fluoro scopy exposure time was 12.1 seconds. COMPARISON: None. FINDINGS: There is no stone or stricture of the common bile duct. The common bile duct is normal in c aliber. IMPRESSION: 1. Unremarkable intraoperative cholangiogram. Reviewed, dictated and finalized at location B. D TRUCK OPERATOR
[2022-06-20] MEDS: ACETAMINOPHEN 500 MG TABLET 1000 MG PO (10:12)
--- NOTE | 2022-06-20 10:41 | WPDANESEPPF ---
Anes - Initial Pre Proc Eval Procedure: Operation Date: 06/20/22 12:00 Proposed Procedures p Laparoscopic Cholecystectomy with Intraoperative Cholangiogram, Possible Open - Glenn Milton DO Date/Time: 06/20/22 10:41 Surgeon: Glenn Milton DO Pre Op Diagnosis: Chronic Cholecystitis, Accute Pancreatitis Patient Data Age: 37 Gender: F Height: 1.5 m Weight: 79.38 kg Allergies Allergy/AdvReac Type Severity Reaction Status Date / Time No Known Allergies Allergy Unknown Verified 06/20/22 10:09 Home Medications Medication Instructions Recorded Confirmed Type gabapentin 600 mg tablet 600 mg PO TID 03/11/21 06/07/22 History insulin glargine 100 unit/mL 22 unit subcut HS 06/24/21 06/07/22 History subcutaneous solution (Lantus U-100 Insulin) insulin lispro 100 unit/mL 8 unit subcut TIDWMEAL 06/24/21 06/07/22 History subcutaneous pen (Humalog KwikPen (U-100) Insulin) acetaminophen 325 mg capsule 650 mg PO Q4-6H PRN fever or pain 04/30/22 06/20/22 Rx #30 caps ondansetron HCl 4 mg tablet 4 mg PO Q8H PRN nausea and 04/30/22 06/07/22 Rx vomiting #14 tabs Patient hx anesthesia problems: none Family hx anesthesia problems: none Results Review: All pre-operative results and documents have been reviewed as part of the pre-operative evaluation. [facility] Past Medical History Medical History Asthma Diabetes 03/12/2021 hemoglobin A1c 12.4 Diabetic neuropathy Elevated liver enzymes GERD (gastroesophageal reflux disease) Hypercholesterolemia Hypertension Kidney stones Nausea and vomiting in adult Obesity (BMI 30.0-34.9) Osteomyelitis of ankle or foot, left, acute Psoriasis Surgical History Surgical History Amputation of toe of left foot 4th toe 06/24/21 History of tonsillectomy Family History Family History Grandparent Diabetes mellitus Father Diabetes mellitus Mother Diabetes mellitus Mother Hypertension Social History Social History Social History: She lives at home with 19-year-old and 14-year-old children. As well as her mother. 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 Smoking status: Never smoker Alcohol intake: never Drinks per week: 1 Alcohol use details: A COUPLE/YEAR Substance use: never Substance use type: does not use Lack of Transportation: No Lack of Food: Never True Current Housing: I Have Housing Concerned About Future Housing: No Difficulty Paying Gas/Electric Bills: No Difficulty Paying for Meds: No Currently Unemployed: No Education: Don't Know Difficulty w/ Childcare or Family Care: No Living arrangements: with family Gender identity (if verbalized by the patient): Female Spiritual care concerns: No Anes - Eval Final PreProcedure Day of Procedure 06/20/22 10:41 Patient weight: obese Heart: regular rate and rhythm Lungs: clear to auscultation Airway: Mallampati scale class II Neurological: alert and oriented Last oral intake: >/= 8 hours ASA classification: III Emergent: no Anesthetic plan: proceed Anesthesia type and monitoring: general ETT and standard monitoring Results Review: All pre-operative results and documents have been reviewed as part of the pre-operative evaluation. Informed Consent: The patient's anesthetic plan and its attendant risks and benefits were discussed with the patient/family/POA. Questions were solicited and answers provided to the satisfaction of the patient/family/POA.
[2022-06-20] MEDS: LACTATED RINGERS 1,000 ML 30 ML IV CONT ×2 (10:54→14:01)
[2022-06-20] MEDS: KETOROLAC 15 MG/ML VIAL (*BKC) IV PUSH (10:54)
[2022-06-20 10:55] LABS: Glucose Point of Care 282 mg/dl (65-105)
--- NOTE | 2022-06-20 10:57 | SUR.PREOP ---
Informed Dr Somers of blood sugar 282.
--- NOTE | 2022-06-20 11:58 | WPDHPUPDATE1 ---
History and Physical Update Update Date/Time: 06/20/22 11:58 History and Physical has been reviewed, including an updated exam of the patient. There are NO changes in the patient's condition. Risks, benefits, and alternatives have been discussed and questions answered. Patient agrees to proceed with procedure.
--- NOTE | 2022-06-20 11:58 | PM.IMHP ---
H&P: HPI History of Present Illness Date/Time: 06/20/22 11:58 Chief Complaint: chronic cholecystitis Narrative: 37 yo woman presents for lap sherman with ioc. She denies any changes since last seen in office. Review of Systems Review of Systems: All systems reviewed & are unremarkable except as noted in HPI and below Constitutional: Constitutional: Denies chills, Denies fever(s), Denies headache(s) and Denies weight loss Eyes: Eyes: Denies change in vision ENT: Denies dizziness, Denies headache(s), Denies neck mass and Denies throat swelling Cardiovascular: Cardiovascular: Denies chest pain, Denies lightheadedness and Denies dyspnea Respiratory: Respiratory: Denies cough, Denies dyspnea and Denies wheezing Gastrointestinal: Gastrointestinal: Denies abdominal pain, Denies change in bowel habits, Denies nausea and Denies vomiting Genitourinary: Genitourinary: Denies hematuria and Denies dysuria Musculoskeletal: Musculoskeletal: Reports as per HPI Integumentary/Breasts: Skin/Breast: Reports as per HPI Neurologic: Denies dizziness and Denies headache(s) Allergic/Immunologic: Allergic/Immunologic: Denies throat swelling and Denies wheezing [facility] Past Medical History Medical History Asthma Diabetes 03/12/2021 hemoglobin A1c 12.4 Diabetic neuropathy Elevated liver enzymes GERD (gastroesophageal reflux disease) Hypercholesterolemia Hypertension Kidney stones Nausea and vomiting in adult Obesity (BMI 30.0-34.9) Osteomyelitis of ankle or foot, left, acute Psoriasis Surgical History Surgical History Amputation of toe of left foot 4th toe 06/24/21 History of tonsillectomy Family History Family History Grandparent Diabetes mellitus Father Diabetes mellitus Mother Diabetes mellitus Mother Hypertension Social History Social History Social History: She lives at home with 19-year-old and 14-year-old children. As well as her mother. 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 Smoking status: Never smoker Alcohol intake: never Drinks per week: 1 Alcohol use details: A COUPLE/YEAR Substance use: never Substance use type: does not use Lack of Transportation: No Lack of Food: Never True Current Housing: I Have Housing Concerned About Future Housing: No Difficulty Paying Gas/Electric Bills: No Difficulty Paying for Meds: No Currently Unemployed: No Education: Don't Know Difficulty w/ Childcare or Family Care: No Living arrangements: with family Gender identity (if verbalized by the patient): Female Spiritual care concerns: No Meds Home Medications and Allergies Home Medications Medication Instructions Recorded Confirmed Type gabapentin 600 mg tablet 600 mg PO TID 03/11/21 06/07/22 History insulin glargine 100 unit/mL 22 unit subcut HS 06/24/21 06/07/22 History subcutaneous solution (Lantus U-100 Insulin) insulin lispro 100 unit/mL 8 unit subcut TIDWMEAL 06/24/21 06/07/22 History subcutaneous pen (Humalog KwikPen (U-100) Insulin) acetaminophen 325 mg capsule 650 mg PO Q4-6H PRN fever or pain 04/30/22 06/20/22 Rx #30 caps ondansetron HCl 4 mg tablet 4 mg PO Q8H PRN nausea and 04/30/22 06/07/22 Rx vomiting #14 tabs Allergies Allergy/AdvReac Type Severity Reaction Status Date / Time No Known Allergies Allergy Unknown Verified 06/20/22 10:09 Vital Signs Vital Signs - 24 hr 06/20/22 10:58 Temperature 36.8 C Pulse Rate 92 Respiratory Rate 16 Blood Pressure 152/80 H Pulse Oximetry 99 Oxygen Delivery Room Air Exam Const: General: no acute distress and alert Orientation/consciousness: patient oriented x3 HENMT: Head: normocephalic and atr
[2022-06-20] MEDS: ceFAZolin 2 GM/D5W 50 ML 2 GM/50 ML BAG IVPB (12:05)
[2022-06-20] MEDS: BUPIVACAINE/EPINEPHRINE 0.5% 30 ML VIAL INFILTRATE (12:57)
--- NOTE | 2022-06-20 13:06 | W.PM.PROC2 ---
Procedure Note - Detailed Date of Procedure 06/20/22 Pre-op Diagnosis Chronic Cholecystitis, Accute Pancreatitis Post-op Diagnosis Same Procedure Performed Laparoscopic Cholecystectomy with cholangiogram Surgeon Glenn Milton, DO Anesthesia General and Local (0.5% bupivacaine) Indications This is a 37-year-old woman who presented with a prior history of acute pancreatitis. The cause of pancreatitis was unknown, but she did have frequent prior episodes of pain after eating fried or fatty foods. She had a gallbladder ultrasound which was normal but HIDA scan showed a slight delay an uptake into the gallbladder. There was concern for findings of chronic cholecystitis. Discussions were made with the patient about treatment options and decision was made to proceed laparoscopic cholecystectomy with cholangiogram. Findings Laparoscopic cholecystectomy with cholangiogram was performed. The patient did have a few pericholecystic adhesions. The gallbladder appeared size. The cystic duct appeared normal in size. Intraoperative cholangiogram was obtained and there did not appear to be any evidence of filling defects or obstruction. The gallbladder was removed and sent to the lab for pathology. Description of Procedure Procedure as well as risks, benefits, and alternatives were discussed with patient. Written consent was obtained and placed in chart prior to procedure. The patient was brought back to surgical suite. Patient was placed in supine position on operating table. Time-out was done to confirm patient and procedure. Patient was then intubated by the anesthesia department. Abdomen was prepped and draped in sterile fashion using chlorhexidine prep. 0.5% bupivacaine with epinephrine was infiltrated at each site of incision. A 5 millimeter incision was made near the umbilicus, and a 5 millimeter Optiview trocar was advanced through the abdominal layers under direct visualization. Once inside the abdominal cavity, carbon dioxide was insufflated to create a pneumoperitoneum. The camera was inserted and the abdomen was inspected. No immediate abnormalities were identified. The patient was placed in reverse Trendelenburg position and rotated slightly to the left. An 11 millimeter incision was made in the subxiphoid region, and an 11 millimeter trocar was inserted under direct visualization. Two 5 millimeter incisions were made in the right upper quadrant, and two 5 millimeter trocars were inserted under direct visualization. The gallbladder was identified and grasped at the fundus and retracted superiorly. It was then grasped at the infundibulum retracted laterally. Careful dissection around the neck of the gallbladder was performed using blunt dissection with a [place] grasper and hook electrocautery. The cystic duct was identified, and a window was created behind it. The cystic artery was also identified and a window was created behind it. The critical view of safety was identified, visualizing the cystic duct running directly into the neck of the gallbladder, and the cystic artery running directly into the wall of the gallbladder. A 5 millimeter clip medical social worker was then used to place 2 clips proximally and 1 clip distally on the cystic artery. It was then transected using endoscopic scissors. The Alcaraz clamp was then placed across the neck of the gallbladder and the cholangiocatheter was advanced into the distal neck of the gallbladder. The catheter flushed with saline with ease. The patient was then flattened out of bed and fluoroscopy was used to obtain a cholangiogram using Omnipaque contrast. The images were then sent to Radiology for interpretation. The patient was then placed back in reverse Trendelenburg position. The cholangiocatheter was removed. A 5 mm Endoclip medical social worker was used to place 2 clips proximally 1 clip distally on the cystic duct. It was then transected using endoscopic scissors. Once safely away from the jose david hepatitis, th
[2022-06-20 13:52] LABS: Glucose Point of Care 194 mg/dl (65-105)
[2022-06-20] MEDS: fentaNYL CITRATE INJ (*CRX) 100 MCG/2 ML VIAL 25 MCG IV PUSH ×2 (14:04→14:09)
[2022-06-20] MEDS: ONDANSETRON INJ 4 MG/2 ML VIAL IV PUSH (14:05)
[2022-06-20] MEDS: oxyCODONE HCL (*CRX) 5 MG TAB IR PO (14:53)
--- NOTE | 2022-06-20 16:36 | SUR.PHASEII ---
PATIENT CALLED TO SAY THAT [facility] IN [place] DOES NOT PRESENTLY CARRY HYDROCODONE WITH TYLENOL 5/. PRESCRIPTION CANCELLED THERE. DR. LEBLANC NOTIFIED WHO WILL SEND IN PRESCRIPTION TO [facility] IN [place].
== END 2022-06-20 15:34 | disposition home or self-care (01) ==
PROVIDERS: PCP Internal Medicine Gastroenterology; Visit Provider Surgery
PROC: 0FT44ZZ Resection of Gallbladder, Percutaneous Endoscopic Approach (ICD-10-PCS; CPT 47562; principal; 2022-06-20 12:00)
DX: K81.1 Chronic cholecystitis (principal); K85.90 Acute pancreatitis without necrosis or infection, unspecified; E11.40 Type 2 diabetes mellitus with diabetic neuropathy, unspecified; Z79.4 Long term (current) use of insulin; E66.9 Obesity, unspecified; Z68.35 Body mass index [BMI] 35.0-35.9, adult
CPT/HCPCS: 47563; 36415; 74300; 82948; 86850; 86900; 86901; 88304; A9270; J0330; J0690; J1100; J1170; J1885; J2250; J2405; J2704; J2710; J3010; J7030; J7120; Q9966

== ENCOUNTER 2022-10-30 22:20 | Emergency (ER) | payer OTHER, SELFPAY ==
--- NOTE | ~2022-10-30 | XR_ITS ---
Right foot Technique: AP, oblique, and lateral views were obtained. Clinical History: Cellulitis, diabetic neuropathy Findings: Suspected transverse fracture through the proximal shaft of the fifth proximal phalanx. Rem aining osseous structures are intact. Joint spaces are preserved without erosive or degenerative bentley ge.. There is dorsal soft tissue swelling over the forefoot. Impression: Probable transverse fracture of the proximal shaft of the fifth proximal phalanx. No radiographic evidence for osteomyelitis. Dorsal soft tissue swelling. Reviewed, dictated and finalized at location . Impression: Probable transverse fracture of the proximal shaft of the fifth proximal phalan x. No radiographic evidence for osteomyelitis. Dorsal soft tissue swelling.
[2022-10-30 22:25] VITALS: BP 147/91; PULSE 102; RESP 19; TEMP 36.2; O2SAT 97
--- NOTE | 2022-10-31 00:32 | ED.GENADULT ---
HPI - General Adult General Chief complaint: Extremity Problem,Nontraumatic Stated complaint: toe swelling and discoloration Time Seen by Provider: 10/30/22 22:44 History of Present Illness HPI narrative: this is a 29-year-old female with history of diabetic a TS and diabetic neuropathy presenting ED with swelling of her 2nd right toe. patient noticed it earlier today. She has no other symptoms. Patient does have diabetic neuropathy is not feeling feet well. Distally she has got cellulitis in the other foot that was not treated promptly and resulted in an amputation. Related Data Home Medications Medication Instructions Recorded Confirmed gabapentin 600 mg tablet 600 mg PO TID 03/11/21 07/04/22 insulin glargine 100 unit/mL 22 unit subcut HS 06/24/21 07/04/22 subcutaneous solution (Lantus U-100 Insulin) insulin lispro 100 unit/mL 8 unit subcut TIDWMEAL 06/24/21 07/04/22 subcutaneous pen (Humalog KwikPen (U-100) Insulin) amoxicillin 875 mg-potassium tablet 10/30/22 clavulanate 125 mg tablet atorvastatin 20 mg tablet mg 10/30/22 ergocalciferol (vitamin D2) 1,250 10/30/22 mcg (50,000 unit) capsule triamcinolone acetonide 0.1 % applic topical 10/30/22 topical cream Allergies Allergy/AdvReac Type Severity Reaction Status Date / Time No Known Allergies Allergy Unknown Verified 10/30/22 22:46 [facility] Past Medical History Medical History Asthma Diabetes 03/12/2021 hemoglobin A1c 12.4 Diabetic neuropathy Elevated liver enzymes GERD (gastroesophageal reflux disease) Hypercholesterolemia Hypertension Kidney stones Nausea and vomiting in adult Obesity (BMI 30.0-34.9) Osteomyelitis of ankle or foot, left, acute Psoriasis Surgical History Surgical History Amputation of toe of left foot 4th toe 06/24/21 History of tonsillectomy Hx laparoscopic cholecystectomy laparoscopic cholecystectomy w/cholangiogram 06/20/2022 Family History Family History Grandparent Diabetes mellitus Father Diabetes mellitus Mother Diabetes mellitus Mother Hypertension Social History Social History Social History: She lives at home with 19-year-old and 14-year-old children. As well as her mother. 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 Smoking status: Never smoker Alcohol intake: never Drinks per week: 1 Alcohol use details: A COUPLE/YEAR Substance use: never Substance use type: does not use Lack of Transportation: No Lack of Food: Never True Current Housing: I Have Housing Concerned About Future Housing: No Difficulty Paying Gas/Electric Bills: No Difficulty Paying for Meds: No Currently Unemployed: No Education: Don't Know Difficulty w/ Childcare or Family Care: No Living arrangements: with family Gender identity (if verbalized by the patient): Female Spiritual care concerns: No Exam Narrative: APPEARANCE: No apparent distress. Head: atraumatic. EYES: EOMI, NOSE: Atraumatic NECK: Trachea midline RESPIRATORY: No increased rate of breathing CARDIOVASCULAR: RRR, ABDOMINAL: Non-distended MUSCULOSKELETAl: Redness and swelling of the 2nd toe on the right foot. The nail is broken. No exposed bone or blisters or ulcerations. NEURO: Alert. Moving 4/4 extremities SKIN:: Warm, dry. Normal color PSYCHIATRIC: Normal affect Course Vital Signs Vital signs: Vital Signs Temperature 97.1 F L 10/30/22 22:25 Pulse Rate 102 H 10/30/22 22:25 Respiratory Rate 19 10/30/22 22:25 Blood Pressure 147/91 H 10/30/22 22:25 Pulse Oximetry 97 10/30/22 22:25 Oxygen Delivery Room Air 10/30/22 22:25 Temperature 97.1 F L 10/30/22 22:25 Pulse Rate 102 H 10/30/22 22:
[2022-10-31] MEDS: CEPHALEXIN 500 MG CAPSULE PO (00:49)
[2022-10-31 00:52] VITALS: BP 138/76; PULSE 100; RESP 20; TEMP 36.4; O2SAT 92
== END 2022-10-31 00:55 | disposition home or self-care (01) ==
PROVIDERS: Emergency Provider Emergency Medicine; PCP Internal Medicine Gastroenterology
DX: L03.031 Cellulitis of right toe (principal); E11.40 Type 2 diabetes mellitus with diabetic neuropathy, unspecified; E78.00 Pure hypercholesterolemia, unspecified; I10 Essential (primary) hypertension; K21.9 Gastro-esophageal reflux disease without esophagitis; E66.9 Obesity, unspecified; Z68.35 Body mass index [BMI] 35.0-35.9, adult; Z87.442 Personal history of urinary calculi; Z89.422 Acquired absence of other left toe(s); Z90.49 Acquired absence of other specified parts of digestive tract; Z79.4 Long term (current) use of insulin
CPT/HCPCS: 73630; 99283; A9270

== ENCOUNTER 2022-11-11 06:49 | Outpatient (CLI) | payer OTHER, SELFPAY ==
--- NOTE | ~2022-11-11 | MR_ITS ---
EXAMINATION: MR foot RT wo con DATE: 11/11/2022 07:35 INDICATION: Right foot osteomyelitis TECHNIQUE: Magnetic resonance imaging (MRI) of the right fore/mid foot was performed without intraven ous contrast. Sequences included sagittal T1-weighted FSE, sagittal fluid sensitive FSE STIR, coronal T2-weighted FS FSE, coronal T1-weighted FSE, axial T2-weighted FS FSE, and axial T1-weighted FSE. COMPARISON: Right foot radiographs dated 10/30/2022 FINDINGS: There is prominent marrow edema throughout the fifth proximal phalanx surrounding an oblique linear l ow signal intensity nondisplaced fracture plane extending across the proximal metaphyseal region. Ali gnment remains near-anatomic. Bone marrow signal is otherwise normal throughout with no other fractur es, osteomyelitis or other pathologic marrow replacing process. There is moderate fatty atrophy and m ild increased fluid signal throughout the intrinsic musculature of the foot suggestive of acute on ch ronic denervation change such as in the setting of diabetes. The flexor and extensor tendons are norm al. The Lisfranc ligament complexes along with the collateral ligament complex at the metatarsophalan geal and interphalangeal joints are normal. Nonspecific subcutaneous edema over the dorsum of the for efoot. Physiologic amount fluid in the joint space. No abscess or other abnormal fluid collections. IMPRESSION: 1. No findings to suggest osteomyelitis or abscess. 2. Nondisplaced extra-articular fracture at the proximal metaphysis of the right fifth proximal phala nx. Reviewed, dictated and finalized at location B. IMPRESSION: 1. No findings to suggest osteomyelitis or abscess. 2. Nondisplaced extra-articular fracture at the proximal metaphysis of the righ t fifth proximal phalanx.
== END 2022-11-11 06:50 | disposition home or self-care (01) ==
PROVIDERS: PCP Internal Medicine Gastroenterology
DX: M86.8X7 Other osteomyelitis, ankle and foot (principal); S92.514A Nondisplaced fracture of proximal phalanx of right lesser toe(s), initial encounter for closed fracture; X58.XXXA Exposure to other specified factors, initial encounter
CPT/HCPCS: 73718

== ENCOUNTER 2022-12-17 23:13 | Inpatient (IN) | payer OTHER, SELFPAY ==
--- NOTE | ~2022-12-17 | CT_ITS ---
EXAMINATION: CT abdomen pelvis w con DATE: 12/18/2022 02:09 INDICATION: Epigastric abdominal pain. Nausea. TECHNIQUE: Computed tomography (CT) of the abdomen and pelvis was performed with 100 mL Omnipaque 350 intravenous contrast. Automated exposure control and iterative reconstruction technique were employe d. The dose-length product was 1354.30 mGy-cm. COMPARISON: CT abdomen and pelvis 04/25/2022 FINDINGS: The visualized portions of the lung bases demonstrate mild atelectasis. No pleural effusion . The heart size is normal. No pericardial effusion. There is diffuse hepatic steatosis. There are ch anges of cholecystectomy. The spleen is normal. There are calcifications in the pancreas, consistent with chronic pancreatitis. There is fat stranding around the pancreas, consistent with acute intersti tial pancreatitis. The adrenal glands are normal. There are three 1-2 mm stones in right kidney. Ther e are two 1-2 mm stones in left kidney. There is an intrauterine device in expected position. There i s a 3.3 cm cyst in left ovary, likely a follicular cyst. There are no dilated loops of bowel. The jethro endix is normal. There are no pathologically enlarged lymph nodes. There is no ascites. There is mild thoracic and lumbar spondylosis. IMPRESSION: 1. Acute interstitial pancreatitis superimposed on chronic pancreatitis. 2. 3.3 cm cyst in left ovary, likely a follicular cyst. Reviewed, dictated and finalized at location E.
[2022-12-17 23:15] VITALS: BP 145/84; PULSE 114; RESP 16; TEMP 36.5; O2SAT 99
--- NOTE | 2022-12-17 23:43 | ED.GENADULT ---
HPI - General Adult General Chief complaint: Abdominal Pain Stated complaint: epigastric pain Time Seen by Provider: 12/17/22 23:25 History of Present Illness HPI narrative: this is a 29-year-old female presenting ED with to come days of epigastric pain. Patient says that around noon yesterday she started have a sharp pain in the epigastric area that is nonradiating, 10 out 10 intensity and comes and goes. She has never had pain like this before. She does notice that the pain occurred after she had chicken fingers, Estonian food and fried catfish. patient has some nausea but no vomiting. Subjective chills. Denies fevers chest pain difficulty breathing or urinary symptoms. Related Data Home Medications Medication Instructions Recorded Confirmed gabapentin 600 mg tablet 600 mg PO TID 03/11/21 07/04/22 insulin glargine 100 unit/mL 22 unit subcut HS 06/24/21 07/04/22 subcutaneous solution (Lantus U-100 Insulin) insulin lispro 100 unit/mL 8 unit subcut TIDWMEAL 06/24/21 07/04/22 subcutaneous pen (Humalog KwikPen (U-100) Insulin) amoxicillin 875 mg-potassium tablet 10/30/22 clavulanate 125 mg tablet atorvastatin 20 mg tablet mg 10/30/22 ergocalciferol (vitamin D2) 1,250 10/30/22 mcg (50,000 unit) capsule triamcinolone acetonide 0.1 % applic topical 10/30/22 topical cream Allergies Allergy/AdvReac Type Severity Reaction Status Date / Time No Known Allergies Allergy Unknown Verified 10/30/22 22:46 [facility] Past Medical History Medical History Asthma Diabetes 03/12/2021 hemoglobin A1c 12.4 Diabetic neuropathy Elevated liver enzymes GERD (gastroesophageal reflux disease) Hypercholesterolemia Hypertension Kidney stones Nausea and vomiting in adult Obesity (BMI 30.0-34.9) Osteomyelitis of ankle or foot, left, acute Psoriasis Surgical History Surgical History Amputation of toe of left foot 4th toe 06/24/21 History of tonsillectomy Hx laparoscopic cholecystectomy laparoscopic cholecystectomy w/cholangiogram 06/20/2022 Family History Family History Grandparent Diabetes mellitus Father Diabetes mellitus Mother Diabetes mellitus Mother Hypertension Social History Social History Social History: She lives at home with 19-year-old and 14-year-old children. As well as her mother. 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 Smoking status: Never smoker Alcohol intake: never Drinks per week: 1 Alcohol use details: A COUPLE/YEAR Substance use: never Substance use type: does not use Lack of Transportation: No Lack of Food: Never True Current Housing: I Have Housing Concerned About Future Housing: No Difficulty Paying Gas/Electric Bills: No Difficulty Paying for Meds: No Currently Unemployed: No Education: Don't Know Difficulty w/ Childcare or Family Care: No Living arrangements: with family Gender identity (if verbalized by the patient): Female Spiritual care concerns: No Exam Narrative: APPEARANCE: No apparent distress. Head: atraumatic. EYES: EOMI, NOSE: Atraumatic NECK: Trachea midline RESPIRATORY: No increased rate of breathing CARDIOVASCULAR: RRR, ABDOMINAL: Abdomen is obese with tenderness in the epigastric area and left lower quadrant. Rest the abdomen is soft nontender no guarding or rebound. MUSCULOSKELETAl: No obvious deformities NEURO: Alert. Moving 4/4 extremities SKIN:: Warm, dry. Normal color PSYCHIATRIC: Normal affect Course Vital Signs Vital signs: Vital Signs Temperature 97.7 F 12/17/22 23:15 Pulse Rate 114 H 12/17/22 23:15 Respiratory Rate 16 12/17/22 23:15 Blood Pressure 145/84 H 12/17/22 23:15 Pulse Oximetry 99
[2022-12-17] MEDS: SODIUM CHLORIDE 0.9% IV 1,000 ML 999 ML IV CONT (23:56)
[2022-12-17] MEDS: ONDANSETRON INJ 4 MG/2 ML VIAL IV PUSH (23:56)
[2022-12-17] MEDS: MAG HYDROX/AL HYDROX/SIMETH 30 ML UDC PO (23:56)
[2022-12-17] MEDS: FAMOTIDINE 20 MG/2 ML VIAL IV PUSH (23:56)
[2022-12-18] VITALS (31 sets, daily range): BP systolic 105–168; BP diastolic 67–107; PULSE 96–99; RESP 18–20; TEMP 36.7–36.9; O2SAT 92–99
[2022-12-18 00:18] LABS: Basophils Absolute Auto 0.1 K/mm3 (0.0-0.1); Basophils Percent Auto 0.6 % (0.2-1.2); Eosinophils Absolute Auto 0.3 K/mm3 (0-0.3); Eosinophils Percent Auto 1.9 % (0-4.4); Hematocrit 42.4 % (37.0-47.0); Hemoglobin 14.1 g/dL (12.0-15.0); Immature Granulocyte Absolute 0.08 K/mm3 (0.00-0.031); Immature Granulocyte Percent A 0.5 % (0-0.5); Lactic Acid Reflex 1.6 mmol/L (0.7-2.0); Lymphocytes Absolute Auto 3.54 K/mm3 (0.9-3.2); Mean Corpuscular HGB Conc 33.3 g/dl (32-36); Mean Corpuscular Hemoglobin 28.5 pg (26-34); Mean Corpuscular Volume 85.8 fl (80-100); Mean Platelet Volume 11.2 fl (7.4-10.4); Monocytes Absolute Auto 1.2 K/mm3 (0.1-0.6); Monocytes Percent Auto 7.7 % (2.6-8.5); Neutrophils Absolute Auto 10.2 K/mm3 (1.3-6.7); Neutrophils Percent Auto 66.3 % (45.5-73.1); Platelet Count Result 212 k/mm3 (150-375); Red Blood Count 4.94 M/mm3 (4.2-5.4); Red Cell Distribution Width 13.8 % (11.5-14.5); White Blood Count 15.4 K/mm3 (4.5-10.0)
[2022-12-18 00:56] LABS: Appearance Urine Clear (Clear); Bilirubin Urine Negative (Negative); Blood Urine Trace-intact (Negative); Color Urine Yellow (Yellow); Glucose Urine UA 3+ mg/dL (Negative); Ketones Urine 1+ mg/dL (Negative); Leukocyte Esterase Ur Negative LEU/UL (Negative); Nitrate Urine Negative (Negative); Protein Urine 2+ mg/dL (Negative); Specific Grav Ur 1.015 (1.001-1.035); pH Urine 5.5 (5.0-9.0)
[2022-12-18 01:02] LABS: Add Urine Microscopic? YES; RBC Urine 0-2 /hpf (0-2)
[2022-12-18 01:03] LABS: WBC Urine 0-3 /hpf
[2022-12-18 01:07] LABS: Alanine Aminotransferase 47 U/L (6-35); Albumin Level 4.3 g/dL (3.5-5.1); Alkaline Phosphatase 102 U/L (38-126); Anion Gap 9 mmol/L (8-16); Aspartate Amino Transferase 40 U/L (14-36); Bilirubin,Total 0.7 mg/dL (0.2-1.3); Blood Urea Nitrogen 17 mg/dL (7-17); Calcium 8.6 mg/dL (8.4-10.2); Carbon Dioxide 24 mmol/L (22-30); Chloride 98 mmol/L (98-107); Estimated Glomerular Filt Rate > 60; Glucose 332 mg/dL (65-110); Potassium 4.5 mmol/L (3.4-5.0); Sodium 131 mmol/L (137-145)
[2022-12-18 01:10] LABS: Lipase 3653 U/L (23-300)
[2022-12-18] MEDS: HYDROmorphone HCL INJ (*CRX) 1 MG/ML SYR 0.5 MG IV PUSH ×2 (02:16→15:55)
[2022-12-18] MEDS: KETOROLAC 15 MG/ML VIAL (*BKC) IV PUSH (02:16)
[2022-12-18] MEDS: LACTATED RINGERS 1,000 ML 125 ML IV CONT ×3 (06:29→22:13)
[2022-12-18 11:50] LABS: Glucose Point of Care 250 mg/dl (65-105)
--- NOTE | 2022-12-18 15:15 | PM.IMHP ---
H&P: HPI History of Present Illness Date/Time: 12/18/22 18:00 Chief Complaint: Abdominal pain. Narrative: This is a 37-year-old female with history of pancreatitis, kidney stones, insulin-dependent diabetes, and dyslipidemia presented to the emergency department last night via private vehicle from home for evaluation of abdominal pain. The patient provides the following history. Yesterday around noon time she started to experience a sharp and shooting pain in the epigastric region which was severe, rated 10/10 at its worst. The pain seems to come and go in waves of intensity. It is nonradiating. No significant aggravating or alleviating factors. Associated symptoms include nausea but no vomiting. She reports chills but has not had a fever to her knowledge. Symptoms are similar to prior episode of pancreatitis. Patient reports eating chicken fingers, Nepali food, and fried catfish yesterday before the symptoms started. At the time my evaluation she reports that her pain has improved and she tells me that she is extremely hungry and thinks that eating would make her feel better. Preliminary workup in the ED was significant for a WBC count of 15.4, random glucose 332, AST 40, ALT 47, lipase 3653. CT of the abdomen and pelvis showed acute interstitial pancreatitis superimposed on chronic pancreatitis. She is being admitted in this setting for further treatment. She denies significant alcohol use. She is on a statin for dyslipidemia. No recent change in medications. She had her gallbladder out in June of this year. No history of peptic ulcers. Review of Systems Review of Systems: Twelve systems were reviewed and are negative except for as per HPI. [facility] Past Medical History Medical History (Updated 12/18/22 @ 20:50 by Delia Dhaliwal PA-C) Asthma Diabetic neuropathy Dyslipidemia Gastroesophageal reflux disease Hypertension Insulin dependent type 2 diabetes mellitus Kidney stones Osteomyelitis of ankle or foot, left, acute Psoriasis Surgical History Surgical History (Updated 12/18/22 @ 15:19 by Delia Dhaliwal PA-C) Amputation of toe of left foot (06/24/21) 4th toe History of laparoscopic cholecystectomy (06/20/22) History of tonsillectomy Family History Family History Grandparent Diabetes mellitus Father Diabetes mellitus Mother Diabetes mellitus Mother Hypertension Social History Social History (Updated 12/18/22 @ 15:23 by KALYAN Waddell Social History: Surrogate medical decision maker: Carlee River, mother. Code status: Full code. Smoking status: Never smoker Alcohol intake: never Alcohol use details: Rare alcohol use. Substance use: never Substance use type: does not use Lack of Transportation: No Lack of Food: Never True Current Housing: I Have Housing Concerned About Future Housing: No Difficulty Paying Gas/Electric Bills: No Difficulty Paying for Meds: No Currently Unemployed: No Education: Don't Know Difficulty w/ Childcare or Family Care: No Living arrangements: with family Additional living arrangements comments: Lives in [place]. Two children at home. Spiritual care concerns: No Meds Home Medications and Allergies Home Medications Medication Instructions Recorded Confirmed Type gabapentin 600 mg tablet 600 mg PO TID 03/11/21 12/18/22 History insulin glargine 100 unit/mL 30 unit subcut HS 06/24/21 12/18/22 History subcutaneous solution (Lantus U-100 Insulin) insulin lispro 100 unit/mL 8 unit subcut TIDWMEAL 06/24/21 12/18/22 History subcutaneous pen (Humalog KwikPen (U-100) Insulin) Allergies Allergy/AdvReac Type Severity Reaction Status Date / Time No Known Allergies Allergy Unknown Verified 10/30/22 22:46 Vital Signs Vital Signs - 24 hr 12/17/22 23:15 12/18/22 00:02 12/18/22 00:04 Temperature 97.7 F Pulse Rate 114 H Resp
[2022-12-18 17:03] LABS: Glucose Point of Care 203 mg/dl (65-105)
[2022-12-18 17:16] LABS: Hemoglobin A1C 10.5 % (<5.7)
[2022-12-18 17:26] LABS: LDL Cholesterol Direct 106 mg/dL
[2022-12-18 17:27] LABS: Cholesterol 215 mg/dL (0-200); HDL Direct 32 mg/dL
[2022-12-18 18:29] LABS: Triglycerides 629 mg/dL (<150)
[2022-12-18 20:06] LABS: Glucose Point of Care 226 mg/dl (65-105)
[2022-12-18] MEDS: FAMOTIDINE 20 MG/2 ML VIAL IV PUSH (20:47)
[2022-12-18] MEDS: INSULIN GLARGINE (*BKC) 100 UNITS/ML 17 UNITS SUB-Q (20:47)
[2022-12-18 23:35] LABS: Glucose Point of Care 256 mg/dl (65-105)
[2022-12-18] MEDS: INSULIN ASPART (*BKC) 100 UNITS/ML SUB-Q (23:41)
[2022-12-19] MEDS: HYDROmorphone HCL INJ (*CRX) 1 MG/ML SYR 0.5 MG IV PUSH ×4 (03:18→21:07)
[2022-12-19 03:36] VITALS: BMI 42.7
[2022-12-19 05:15] LABS: Glucose Point of Care 191 mg/dl (65-105)
[2022-12-19 05:23] LABS: Hematocrit 40.5 % (37.0-47.0); Hemoglobin 13.1 g/dL (12.0-15.0); Mean Corpuscular HGB Conc 32.3 g/dl (32-36); Mean Corpuscular Hemoglobin 27.7 pg (26-34); Mean Corpuscular Volume 85.6 fl (80-100); Mean Platelet Volume 11.4 fl (7.4-10.4); Platelet Count Result 210 k/mm3 (150-375); Red Blood Count 4.73 M/mm3 (4.2-5.4); Red Cell Distribution Width 13.3 % (11.5-14.5); White Blood Count 14.9 K/mm3 (4.5-10.0)
[2022-12-19 05:29] VITALS: BP 123/79; PULSE 102; RESP 18; TEMP 37.1; O2SAT 93
[2022-12-19] MEDS: LACTATED RINGERS 1,000 ML 150 ML IV CONT ×3 (05:37→18:51)
[2022-12-19 05:39] LABS: Alanine Aminotransferase 37 U/L (6-35); Albumin Level 3.7 g/dL (3.5-5.1); Alkaline Phosphatase 90 U/L (38-126); Anion Gap 6 mmol/L (8-16); Aspartate Amino Transferase 32 U/L (14-36); Bilirubin,Total 0.5 mg/dL (0.2-1.3); Blood Urea Nitrogen 9 mg/dL (7-17); Calcium 8.3 mg/dL (8.4-10.2); Carbon Dioxide 23 mmol/L (22-30); Chloride 101 mmol/L (98-107); Estimated Glomerular Filt Rate > 60; Glucose 206 mg/dL (65-110); Magnesium 2.1 mg/dL (1.6-2.3); Potassium 3.8 mmol/L (3.4-5.0); Sodium 130 mmol/L (137-145)
[2022-12-19 08:17] LABS: Lipase 11192 U/L (23-300)
[2022-12-19 08:34] VITALS: RESP 18; O2SAT 93
[2022-12-19] MEDS: GABAPENTIN 300 MG CAPSULE 600 MG PO ×3 (08:34→16:56)
[2022-12-19] MEDS: FAMOTIDINE 20 MG/2 ML VIAL IV PUSH ×2 (08:34→20:18)
[2022-12-19 12:20] LABS: Glucose Point of Care 189 mg/dl (65-105)
--- NOTE | 2022-12-19 12:56 | PM.IMPN ---
Progress Note: A&P Assessment and Plan (1) Acute on chronic pancreatitis: Code(s): K85.90 - Acute pancreatitis without necrosis or infection, unspecified; K86.1 - Other chronic pancreatitis Status: Acute Assessment and Plan: The patient presented to the emergency department for evaluation of abdominal pain. She reports that her symptoms are similar to prior episodes of pancreatitis and indeed she was found to have acute on chronic pancreatitis on CT scan. Lipase is 3653 [place] repeat was [address]. Continue bowel rest and IV fluid rehydration. Advance diet as tolerated. Analgesics and antiemetics are available as needed. (2) Insulin dependent type 2 diabetes mellitus: Code(s): E11.9 - Type 2 diabetes mellitus without complications; Z79.4 - intermediate frame tender (current) use of insulin Status: Acute Assessment and Plan: Initiate sliding scale insulin, Accu-Cheks, and hypoglycemic protocol. Check hemoglobin A1c. (3) Dyslipidemia: Code(s): E78.5 - Hyperlipidemia, unspecified Status: Acute Assessment and Plan: Hold statin for now. Plan Check triglyceride level. Random glucose on presentation was 332. Continue basal insulin at a decreased dose as she is currently NPO. Her home medications will be reviewed and resumed as appropriate. Subjective Date/time seen: 12/19/22 12:56 Interval history: Patient doing okay today and feeling much better than presentation. She continues to have intermittent abdominal pain but handling it well. She did tolerate her clear liquids. Will keep patient on clear liquids for now and see how she does. Lipase did increase today to 11,000. Continue to trend. She denies any nausea vomiting. Exam Narrative: GENERAL: Comfortable, no acute distress HENMT: moist mucous membranes EYES: EOM intact b/l NECK: no lymphadenopathy RESPIRATORY: clear to auscultation CARDIO: RRR GI: soft, mild epigastric pain, bowel sounds present SKIN: no rashes EXTREMITIES: no edema, redness or tenderness Objective Data Vital Signs Vital Signs: Vital Signs - 24 hr 12/18/22 14:00 12/18/22 20:35 12/19/22 05:29 Temperature 98.1 F 98.4 F 98.7 F Pulse Rate 96 99 102 H Respiratory Rate 19 18 18 Blood Pressure 134/70 133/68 123/79 Pulse Oximetry 94 94 93 Oxygen Delivery 12/19/22 08:34 Temperature Pulse Rate Respiratory Rate 18 Blood Pressure Pulse Oximetry 93 Oxygen Delivery Room Air Intake/Output Intake/Output: Intake & Output 12/16/22 12/17/22 12/18/22 12/19/22 23:59 23:59 23:59 23:59 Intake Total 3000 2480 Balance 3000 2480 Meds/Results Medications: Active Medications Generic Name Dose Route Start Last Admin Trade Name Freq PRN Reason Stop Dose Admin Dextrose 12.5 gm 12/18/22 15:13 Dextrose 50% 25 Gm/50 Ml Syringe IV PUSH PRN PRN Hypoglycemia Protocol Famotidine 20 mg 12/18/22 21:00 12/19/22 08:34 Famotidine 20 Mg/2 Ml Vial IV PUSH 20 mg Q12HR LELE Administration Gabapentin 600 mg 12/19/22 09:00 12/19/22 12:10 Gabapentin 300 Mg Capsule PO 600 mg TID LELE Administration Glucagon 1 mg 12/18/22 15:13 Glucagon For Inj 1 Mg Vial IM PRN PRN Hypoglycemia Protocol Glucose 15 gm 12/18/22 15:13 Glucose Oral Gel 15 Gm Of Glucse In 37.5 Gm Tube PO PRN PRN Hypoglycemia Protocol Hydromorphone HCl 0.5 mg 12/18/22 15:13 12/19/22 09:54 Hydromorphone Hcl Inj (*Crx) 1 Mg/Ml Syr IV PUSH 0.5 mg Q3H PRN Administration Pain Rated 7-10 Lactated Ringer's 1,000 mls @ 150 mls/hr 12/18/22 05:30 12/19/22 12:10 Lr - Lactated Ringers Iv IV CONT 150 mls/hr .[id number] LELE Administration Dextrose 1,000 mls @ 100 mls/hr 12/18/22 15:13 Dextrose 5% 1,000 Ml IVPB PRN PRN Hypoglycemia Protocol Insulin Aspart 3 - 6 units 12/18/22 18:00 12/19/22 12:15 Insulin Aspart (*Bkc) 100 Units/Ml SUB-Q
[2022-12-19 14:00] VITALS: BP 141/91; PULSE 99; RESP 20; TEMP 36.9; O2SAT 96
[2022-12-19 17:17] LABS: Glucose Point of Care 175 mg/dl (65-105)
[2022-12-19] MEDS: INSULIN GLARGINE (*BKC) 100 UNITS/ML 17 UNITS SUB-Q (20:18)
[2022-12-19 20:51] VITALS: BP 128/71; PULSE 96; RESP 18; TEMP 36.8; O2SAT 95
[2022-12-19 23:56] LABS: Glucose Point of Care 172 mg/dl (65-105)
[2022-12-20] MEDS: LACTATED RINGERS 1,000 ML 150 ML IV CONT ×2 (00:43→07:01)
[2022-12-20 05:17] LABS: Basophils Absolute Auto 0.1 K/mm3 (0.0-0.1); Basophils Percent Auto 0.4 % (0.2-1.2); Eosinophils Absolute Auto 0.4 K/mm3 (0-0.3); Eosinophils Percent Auto 3.1 % (0-4.4); Hematocrit 37.8 % (37.0-47.0); Hemoglobin 12.3 g/dL (12.0-15.0); Immature Granulocyte Absolute 0.05 K/mm3 (0.00-0.031); Immature Granulocyte Percent A 0.4 % (0-0.5); Mean Corpuscular HGB Conc 32.5 g/dl (32-36); Mean Corpuscular Hemoglobin 27.8 pg (26-34); Mean Corpuscular Volume 85.5 fl (80-100); Mean Platelet Volume 11.2 fl (7.4-10.4); Monocytes Percent Auto 8.3 % (2.6-8.5); Neutrophils Percent Auto 68.8 % (45.5-73.1); Platelet Count Result 230 k/mm3 (150-375); Red Blood Count 4.42 M/mm3 (4.2-5.4); Red Cell Distribution Width 13.6 % (11.5-14.5); White Blood Count 11.6 K/mm3 (4.5-10.0)
[2022-12-20 05:28] LABS: Alanine Aminotransferase 32 U/L (6-35); Albumin Level 3.5 g/dL (3.5-5.1); Alkaline Phosphatase 94 U/L (38-126); Anion Gap 6 mmol/L (8-16); Aspartate Amino Transferase 32 U/L (14-36); Bilirubin,Total 0.5 mg/dL (0.2-1.3); Blood Urea Nitrogen 6 mg/dL (7-17); Calcium 8.4 mg/dL (8.4-10.2); Carbon Dioxide 25 mmol/L (22-30); Chloride 102 mmol/L (98-107); Estimated Glomerular Filt Rate > 60; Glucose 147 mg/dL (65-110); Potassium 3.8 mmol/L (3.4-5.0); Sodium 133 mmol/L (137-145)
[2022-12-20 05:31] VITALS: BP 141/72; PULSE 101; RESP 18; TEMP 37.5; O2SAT 96
[2022-12-20 05:41] LABS: Glucose Point of Care 152 mg/dl (65-105)
[2022-12-20 05:49] LABS: Lipase 5399 U/L (23-300)
[2022-12-20] MEDS: HYDROmorphone HCL INJ (*CRX) 1 MG/ML SYR 0.5 MG IV PUSH ×2 (07:00→13:54)
[2022-12-20] MEDS: GABAPENTIN 300 MG CAPSULE 600 MG PO ×3 (08:42→16:45)
[2022-12-20 08:43] VITALS: RESP 18; O2SAT 96
[2022-12-20] MEDS: FAMOTIDINE 20 MG/2 ML VIAL IV PUSH ×2 (08:43→20:28)
[2022-12-20 12:36] LABS: Glucose Point of Care 172 mg/dl (65-105)
--- NOTE | 2022-12-20 13:11 | PM.IMPN ---
Progress Note: A&P Assessment and Plan (1) Acute on chronic pancreatitis: Code(s): K85.90 - Acute pancreatitis without necrosis or infection, unspecified; K86.1 - Other chronic pancreatitis Status: Acute Assessment and Plan: The patient presented to the emergency department for evaluation of abdominal pain. She reports that her symptoms are similar to prior episodes of pancreatitis and indeed she was found to have acute on chronic pancreatitis on CT scan. [place] 3653, [address], 5399 IV fluid rehydration. Advance diet as tolerated. Analgesics and antiemetics are available as needed. (2) Insulin dependent type 2 diabetes mellitus: Code(s): E11.9 - Type 2 diabetes mellitus without complications; Z79.4 - long-term (current) use of insulin Status: Acute Assessment and Plan: Initiate sliding scale insulin, Accu-Cheks, and hypoglycemic protocol. Check hemoglobin A1c. (3) Dyslipidemia: Code(s): E78.5 - Hyperlipidemia, unspecified Status: Acute Assessment and Plan: Hold statin for now. (4) Hypertriglyceridemia: Code(s): E78.1 - Pure hyperglyceridemia Status: Acute Assessment and Plan: Patient present with elevated triglycerides at 629. Patient already on atorvastatin daily. Fenofibrate added. Plan Check triglyceride level. Random glucose on presentation was 332. Continue basal insulin at a decreased dose as she is currently NPO. Her home medications will be reviewed and resumed as appropriate. Subjective Date/time seen: 12/20/22 13:11 Interval history: Patient feeling a little bit better today. Advance diet to full liquids and then low-fat diet. Patient's IV fluids rate decreased and will likely discontinue fluids tomorrow. Continue to trend lipase. She denies any nausea vomiting. Her abdominal pain is improving but still intermittent. Exam Narrative: GENERAL: Comfortable, no acute distress HENMT: moist mucous membranes EYES: EOM intact b/l NECK: no lymphadenopathy RESPIRATORY: clear to auscultation CARDIO: RRR GI: soft, mild epigastric pain, bowel sounds present SKIN: no rashes EXTREMITIES: no edema, redness or tenderness Objective Data Vital Signs Vital Signs: Vital Signs - 24 hr 12/19/22 14:00 12/19/22 20:51 12/20/22 05:31 Temperature 98.4 F 98.2 F 99.5 F Pulse Rate 99 96 101 H Respiratory Rate 20 18 18 Blood Pressure 141/91 H 128/71 141/72 H Pulse Oximetry 96 95 96 Oxygen Delivery 12/20/22 08:43 Temperature Pulse Rate Respiratory Rate 18 Blood Pressure Pulse Oximetry 96 Oxygen Delivery Room Air Intake/Output Intake/Output: Intake & Output 12/17/22 12/18/22 12/19/22 12/20/22 23:59 23:59 23:59 23:59 Intake Total 3000 4270 2792 Balance 3000 4270 2792 Meds/Results Medications: Active Medications Generic Name Dose Route Start Last Admin Trade Name Freq PRN Reason Stop Dose Admin Dextrose 12.5 gm 12/18/22 15:13 Dextrose 50% 25 Gm/50 Ml Syringe IV PUSH PRN PRN Hypoglycemia Protocol Famotidine 20 mg 12/18/22 21:00 12/20/22 08:43 Famotidine 20 Mg/2 Ml Vial IV PUSH 20 mg Q12HR LELE Administration Gabapentin 600 mg 12/19/22 09:00 12/20/22 12:38 Gabapentin 300 Mg Capsule PO 600 mg TID LELE Administration Glucagon 1 mg 12/18/22 15:13 Glucagon For Inj 1 Mg Vial IM PRN PRN Hypoglycemia Protocol Glucose 15 gm 12/18/22 15:13 Glucose Oral Gel 15 Gm Of Glucse In 37.5 Gm Tube PO PRN PRN Hypoglycemia Protocol Hydromorphone HCl 0.5 mg 12/18/22 15:13 12/20/22 07:00 Hydromorphone Hcl Inj (*Crx) 1 Mg/Ml Syr IV PUSH 0.5 mg Q3H PRN Administration Pain Rated 7-10 Lactated Ringer's 1,000 mls @ 75 mls/hr 12/18/22 05:30 12/20/22 12:38 Lr - Lactated Ringers Iv IV CONT 75 mls/hr .[id number] LELE Infusion Dextrose 1,000 mls @ 100 mls/hr 12/18/22 15:13 Dextrose 5%
[2022-12-20] MEDS: LACTATED RINGERS 1,000 ML 75 ML IV CONT (13:55)
[2022-12-20 14:00] VITALS: BP 131/65; PULSE 94; RESP 18; TEMP 36.6; O2SAT 98
[2022-12-20 17:11] LABS: Glucose Point of Care 178 mg/dl (65-105)
[2022-12-20] MEDS: HYDROcodone/acetaminophen (*CRX) 5-325 MG TABLET 1 TAB PO (18:39)
[2022-12-20 20:00] VITALS: PULSE 83; RESP 18; O2SAT 99
[2022-12-20] MEDS: INSULIN GLARGINE (*BKC) 100 UNITS/ML 17 UNITS SUB-Q (20:28)
[2022-12-20 21:28] VITALS: BP 119/68; PULSE 83; RESP 18; TEMP 35.7; O2SAT 99
[2022-12-21 02:07] LABS: Glucose Point of Care 259 mg/dl (65-105)
[2022-12-21] MEDS: LACTATED RINGERS 1,000 ML 75 ML IV CONT (03:14)
[2022-12-21 04:50] VITALS: BP 121/68; PULSE 85; RESP 20; TEMP 36.7; O2SAT 98
[2022-12-21 05:05] LABS: Basophils Absolute Auto 0.1 K/mm3 (0.0-0.1); Basophils Percent Auto 0.6 % (0.2-1.2); Eosinophils Absolute Auto 0.6 K/mm3 (0-0.3); Eosinophils Percent Auto 6.2 % (0-4.4); Hematocrit 36.9 % (37.0-47.0); Hemoglobin 11.8 g/dL (12.0-15.0); Immature Granulocyte Absolute 0.05 K/mm3 (0.00-0.031); Immature Granulocyte Percent A 0.6 % (0-0.5); Lymphocytes Absolute Auto 2.46 K/mm3 (0.9-3.2); Lymphocytes Percent Auto 27.9 % (18.3-44.2); Mean Corpuscular Hemoglobin 27.6 pg (26-34); Mean Corpuscular Volume 86.4 fl (80-100); Mean Platelet Volume 10.8 fl (7.4-10.4); Monocytes Absolute Auto 0.8 K/mm3 (0.1-0.6); Monocytes Percent Auto 9.2 % (2.6-8.5); Neutrophils Absolute Auto 4.9 K/mm3 (1.3-6.7); Neutrophils Percent Auto 55.5 % (45.5-73.1); Platelet Count Result 239 k/mm3 (150-375); Red Blood Count 4.27 M/mm3 (4.2-5.4); Red Cell Distribution Width 13.6 % (11.5-14.5); White Blood Count 8.8 K/mm3 (4.5-10.0)
[2022-12-21 05:17] LABS: Alanine Aminotransferase 30 U/L (6-35); Albumin Level 3.2 g/dL (3.5-5.1); Alkaline Phosphatase 91 U/L (38-126); Anion Gap 2 mmol/L (8-16); Aspartate Amino Transferase 28 U/L (14-36); Bilirubin,Total 0.3 mg/dL (0.2-1.3); Blood Urea Nitrogen 7 mg/dL (7-17); Calcium 8.5 mg/dL (8.4-10.2); Carbon Dioxide 27 mmol/L (22-30); Chloride 105 mmol/L (98-107); Estimated Glomerular Filt Rate > 60; Glucose 193 mg/dL (65-110); Lipase 694 U/L (23-300); Potassium 3.4 mmol/L (3.4-5.0); Sodium 134 mmol/L (137-145); Triglycerides 213 mg/dL (<150)
[2022-12-21 05:19] LABS: Glucose Point of Care 176 mg/dl (65-105)
[2022-12-21 08:00] VITALS: PULSE 98; RESP 16; O2SAT 95
[2022-12-21 08:01] LABS: Glucose Point of Care 176 mg/dl (65-105)
[2022-12-21] MEDS: FENOFIBRATE 160 MG TABLET PO (08:05)
[2022-12-21] MEDS: GABAPENTIN 300 MG CAPSULE 600 MG PO ×3 (08:05→16:25)
[2022-12-21] MEDS: FAMOTIDINE 20 MG/2 ML VIAL IV PUSH (08:05)
[2022-12-21] MEDS: HYDROcodone/acetaminophen (*CRX) 5-325 MG TABLET 1 TAB PO ×2 (08:07→16:25)
[2022-12-21] MEDS: CALCIUM CARBONATE (TUMS) 500 MG (200 MG ELEMENTAL) PO (10:30)
[2022-12-21 11:51] LABS: Glucose Point of Care 298 mg/dl (65-105)
[2022-12-21] MEDS: INSULIN ASPART (*BKC) 100 UNITS/ML SUB-Q ×2 (12:03→17:35)
--- NOTE | 2022-12-21 12:10 | PM.IMPN ---
Progress Note: A&P Assessment and Plan (1) Acute on chronic pancreatitis: Code(s): K85.90 - Acute pancreatitis without necrosis or infection, unspecified; K86.1 - Other chronic pancreatitis Status: Acute Assessment and Plan: The patient presented to the emergency department for evaluation of abdominal pain. She reports that her symptoms are similar to prior episodes of pancreatitis and indeed she was found to have acute on chronic pancreatitis on CT scan. [place]ase [place] 3653, 34384, 5399 IV fluids discontinued Advance diet as tolerated. Analgesics and antiemetics are available as needed. 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 Check hemoglobin A1c. (3) Dyslipidemia: Code(s): E78.5 - Hyperlipidemia, unspecified Status: Acute Assessment and Plan: Hold statin for now. (4) Hypertriglyceridemia: Code(s): E78.1 - Pure hyperglyceridemia Status: Acute Assessment and Plan: Patient present with elevated triglycerides at 629. Patient already on atorvastatin daily. Fenofibrate added. Plan Check triglyceride level. Random glucose on presentation was 332. Continue basal insulin at a decreased dose as she is currently NPO. Her home medications will be reviewed and resumed as appropriate. Subjective Date/time seen: 12/21/22 12:10 Interval history: Patient tolerating diet well. Although patient states that she is having chest pain that is intermittent. Patient's pain did develop after she had low-fat diet today. Patient states that pain starts in her epigastric area and radiates up to her chest and describes that as stabbing and chest pressure at the same time. She is not tachycardic, diaphoretic or having any radiation of the chest pain. Patient's vital signs are within normal limits. Patient is likely experiencing symptoms of indigestion due to her not having any solid food in several days. Will check a troponin just to rule out cardiac ischemia. physical exam revealed regular rate and rhythm and clear breath sounds. Will monitor overnight in hopes to discharge in the morning. Review of Systems Review of Systems: All systems reviewed & are unremarkable except as noted in HPI and below Exam Narrative: GENERAL: Comfortable, no acute distress HENMT: moist mucous membranes EYES: EOM intact b/l NECK: no lymphadenopathy RESPIRATORY: clear to auscultation CARDIO: RRR GI: soft, nontender, bowel sounds present SKIN: no rashes EXTREMITIES: no edema, redness or tenderness Objective Data Vital Signs Vital Signs: Vital Signs - 24 hr 12/20/22 14:00 12/20/22 21:28 12/20/22 20:00 Temperature 97.9 F 96.2 F L Pulse Rate 94 83 83 Respiratory Rate 18 18 18 Blood Pressure 131/65 119/68 Pulse Oximetry 98 99 99 Oxygen Delivery Room Air 12/21/22 04:50 Temperature 98.1 F Pulse Rate 85 Respiratory Rate 20 Blood Pressure 121/68 Pulse Oximetry 98 Oxygen Delivery Intake/Output Intake/Output: Intake & Output 12/18/22 12/19/22 12/20/22 12/21/22 23:59 23:59 23:59 23:59 Intake Total 3000 4270 4982 1850 Balance 3000 4270 4982 1850 Meds/Results Medications: Active Medications Generic Name Dose Route Start Last Admin Trade Name Freq PRN Reason Stop Dose Admin Acetaminophen 500 mg 12/20/22 14:02 Acetaminophen 500 Mg Tablet PO Q6H PRN Mild Pain (1-3) or Fever Hydrocodone Bitart/Acetaminophen 1 tab 12/20/22 14:02 12/21/22 08:07 Hydrocodone/Acetaminophen (*Crx) 5-325 Mg Tablet PO 1 tab Q4H PRN Administration Pain Rated 4-6 Calcium Carbonate 200 mg 12/21/22 09:34 12/21/22 10:30 Calcium Carbonate (Tums) 500 Mg (200 Mg Elemental) PO 200 mg Q6
[2022-12-21 14:34] VITALS: BP 129/61; PULSE 98; RESP 16; TEMP 36.8; O2SAT 95
[2022-12-21 16:03] LABS: Troponin I < 0.012 ng/mL (0.000-0.034)
[2022-12-21 16:45] LABS: Glucose Point of Care 267 mg/dl (65-105)
[2022-12-21 19:41] LABS: Glucose Point of Care 300 mg/dl (65-105)
[2022-12-21 20:00] VITALS: PULSE 86; RESP 18; O2SAT 98
[2022-12-21 20:33] VITALS: BP 137/80; PULSE 86; RESP 18; TEMP 36.7; O2SAT 98
[2022-12-21] MEDS: INSULIN ASPART (*BKC) 100 UNITS/ML 6 UNITS SUB-Q (21:16)
[2022-12-21] MEDS: INSULIN GLARGINE (*BKC) 100 UNITS/ML 17 UNITS SUB-Q (21:16)
[2022-12-21] MEDS: PANTOPRAZOLE SODIUM IV 40 MG VIAL IV PUSH (21:17)
[2022-12-22] MEDS: HYDROcodone/acetaminophen (*CRX) 5-325 MG TABLET 1 TAB PO (03:35)
[2022-12-22 05:18] LABS: Basophils Percent Auto 0.4 % (0.2-1.2); Eosinophils Absolute Auto 0.6 K/mm3 (0-0.3); Eosinophils Percent Auto 5.9 % (0-4.4); Hematocrit 35.9 % (37.0-47.0); Hemoglobin 11.9 g/dL (12.0-15.0); Immature Granulocyte Absolute 0.04 K/mm3 (0.00-0.031); Immature Granulocyte Percent A 0.4 % (0-0.5); Lymphocytes Absolute Auto 2.63 K/mm3 (0.9-3.2); Lymphocytes Percent Auto 27.4 % (18.3-44.2); Mean Corpuscular HGB Conc 33.1 g/dl (32-36); Mean Corpuscular Volume 84.5 fl (80-100); Mean Platelet Volume 10.6 fl (7.4-10.4); Monocytes Absolute Auto 0.8 K/mm3 (0.1-0.6); Monocytes Percent Auto 8.8 % (2.6-8.5); Neutrophils Absolute Auto 5.5 K/mm3 (1.3-6.7); Neutrophils Percent Auto 57.1 % (45.5-73.1); Platelet Count Result 270 k/mm3 (150-375); Red Blood Count 4.25 M/mm3 (4.2-5.4); Red Cell Distribution Width 13.5 % (11.5-14.5); White Blood Count 9.6 K/mm3 (4.5-10.0)
[2022-12-22 05:26] VITALS: BP 120/68; PULSE 88; RESP 18; TEMP 36.6; O2SAT 96
[2022-12-22 05:36] LABS: Alanine Aminotransferase 30 U/L (6-35); Albumin Level 3.4 g/dL (3.5-5.1); Alkaline Phosphatase 89 U/L (38-126); Anion Gap 4 mmol/L (8-16); Aspartate Amino Transferase 32 U/L (14-36); Bilirubin,Total 0.3 mg/dL (0.2-1.3); Blood Urea Nitrogen 10 mg/dL (7-17); Calcium 8.9 mg/dL (8.4-10.2); Carbon Dioxide 25 mmol/L (22-30); Chloride 103 mmol/L (98-107); Estimated Glomerular Filt Rate > 60; Glucose 170 mg/dL (65-110); Lipase 450 U/L (23-300); Potassium 3.5 mmol/L (3.4-5.0); Sodium 132 mmol/L (137-145)
[2022-12-22 08:04] LABS: Glucose Point of Care 172 mg/dl (65-105)
[2022-12-22] MEDS: PANTOPRAZOLE SODIUM IV 40 MG VIAL IV PUSH (08:56)
[2022-12-22] MEDS: GABAPENTIN 300 MG CAPSULE 600 MG PO ×2 (08:56→12:26)
[2022-12-22] MEDS: FENOFIBRATE 160 MG TABLET PO (09:01)
--- NOTE | 2022-12-22 11:19 | PM.DS ---
DS: Admitting Diagnosis Discharge Date 12/22/22 Admitting Diagnosis Acute pancreatitis DS: Discharge Diagnosis Discharge Diagnosis (1) Acute on chronic pancreatitis: Code(s): K85.90 - Acute pancreatitis without necrosis or infection, unspecified; K86.1 - Other chronic pancreatitis Status: Acute (2) Insulin dependent type 2 diabetes mellitus: Code(s): E11.9 - Type 2 diabetes mellitus without complications; Z79.4 - resident care technician (current) use of insulin Status: Acute (3) Dyslipidemia: Code(s): E78.5 - Hyperlipidemia, unspecified Status: Acute (4) Hypertriglyceridemia: Code(s): E78.1 - Pure hyperglyceridemia Status: Acute DS: Summary Hospital Course Hospital Course: This is a 29-year-old female with a history of 1 episode of pancreatitis, kidney stones, diabetes and hyperlipidemia the presented to the ED due to acute abdominal pain. Patient did not have any nausea or vomiting associated with her abdominal pain. Patient is found have a white count of 15.4, random glucose of 332, AST 40 and ALT 47. Patient's lipase was 3600. CT abdomen pelvis showed acute pancreatitis. Patient denies alcohol use. I asked patient if she had changed her diet from last time she had pancreatitis and she said no. Patient was put on IV fluids and analgesics p.r.n.. The next day patient's lipase increased to 11,100 . Patient continued to have abdominal pain at this time and bowel rest was continued. The next day patient's lipase was 5399 and she was started on a clear liquid diet. Patient tolerated a clear liquid diet well and then her diet was advanced as tolerated. IV fluids were then discontinued. Patient did have some abdominal pain with a low-fat diet but after 1 day she tolerated the diet well. On day of discharge patient's lipase was 450. Advised patient to make dietary changes and she was agreeable to this. Discussed the risks and benefits of her diet. Labs and vital signs stable and she is medically have discharge. Time Spent with Patient Time attestation: Total time spent providing and/or coordinating discharge services: Exam Narrative: GENERAL: Comfortable, no acute distress HENMT: moist mucous membranes EYES: EOM intact b/l NECK: no lymphadenopathy RESPIRATORY: clear to auscultation CARDIO: RRR GI: soft, nontender, bowel sounds present SKIN: no rashes EXTREMITIES: no edema, redness or tenderness DS: Data Data Completed and Pending Labs on day of discharge: Labs from last 24 hours 12/22/22 12/22/22 12/21/22 08:01 05:03 19:38 WBC 9.6 RBC 4.25 Hgb 11.9 L Hct 35.9 L MCV 84.5 MCH 28.0 MCHC 33.1 RDW 13.5 Plt Count 270 MPV 10.6 H Immature Gran % (Auto) 0.4 Neut % (Auto) 57.1 Lymph % (Auto) 27.4 [place] % (Auto) 8.8 H Eos % (Auto) 5.9 H Baso % (Auto) 0.4 Lymph # (Auto) 2.63 [place] # (Auto) 0.8 H Eos # (Auto) 0.6 H Baso # (Auto) 0.0 Abs Immat Gran (auto) 0.04 H Absolute Neuts (auto) 5.5 Absolute Nucleated RBC 0.0 Nucleated RBC % 0.0 Sodium 132 L Potassium 3.5 Chloride 103 Carbon Dioxide 25 Anion Gap 4 L BUN 10 Creatinine 0.70 Estim Creat Clear Calc Not Reportable Estimated GFR > 60 Glucose 170 H POC Capillary Glucose 172 H 300 H Calcium 8.9 Total Bilirubin 0.3 AST 32 ALT 30 Alkaline Phosphatase 89 Troponin I Total Protein 7.0 Albumin 3.4 L Lipase 450 H 12/21/22 12/21/22 12/21/22 16:42 11:48 04:37 WBC RBC Hgb Hct MCV MCH MCHC RDW Plt Count MPV Immature Gran % (Auto) Neut % (Auto) Lymph % (Auto) [place] % (Auto) Eos % (Auto) Baso % (Auto) Lymph # (Auto) [place] # (Auto) Eos # (Auto) Baso # (Auto) Abs Immat Gran (auto) Absolute Neuts (auto) Absolute Nucleated RBC Nucleated RBC % Sodium Potassium Chloride Carbon Dioxide Anion G
[2022-12-22 11:58] LABS: Glucose Point of Care 282 mg/dl (65-105)
[2022-12-22] MEDS: INSULIN ASPART (*BKC) 100 UNITS/ML SUB-Q (12:27)
== END 2022-12-22 13:11 | disposition home or self-care (01) | DRG 282 ==
LOC: ANHED 12-18 05:26 → ANH3MEDSUR 12-18 06:29 → ANH2MED 12-18 07:22
PROVIDERS: Physician Assistant; Admitting Provider Internal Medicine; Emergency Provider Emergency Medicine; PCP Internal Medicine Gastroenterology; Visit Provider Internal Medicine Critical Care Medicine
DX: K85.90 Acute pancreatitis without necrosis or infection, unspecified (principal); E11.40 Type 2 diabetes mellitus with diabetic neuropathy, unspecified; K86.1 Other chronic pancreatitis; I10 Essential (primary) hypertension; J45.909 Unspecified asthma, uncomplicated; E78.00 Pure hypercholesterolemia, unspecified; E78.1 Pure hyperglyceridemia; K21.9 Gastro-esophageal reflux disease without esophagitis; Z87.442 Personal history of urinary calculi; Z89.422 Acquired absence of other left toe(s); Z79.4 Long term (current) use of insulin
CPT/HCPCS: 36415; 74177; 80053; 80061; 81001; 81003; 81025; 82948; 83036; 83605; 83690; 83735; 84478; 84484; 85025; 85027; 96361; 96374; 96375; 99285; A9270; C9113; G0378; G0379; J1170; J1815; J1885; J2405; J7030; J7120; Q9967

== ENCOUNTER 2023-02-28 08:00 | Outpatient (CLI) | payer OTHER, SELFPAY ==
--- NOTE | ~2023-02-28 | CT_ITS ---
EXAMINATION: CT foot RT wo con DATE: 02/28/2023 08:31 INDICATION: Right foot fracture. TECHNIQUE: Computed tomography (CT) of the right foot was performed without intravenous contrast. Aut omated exposure control and iterative reconstruction technique were employed. The dose-length product was 441.71 mGy-cm. COMPARISON: Right foot radiograph 10/30/2022, MRI 11/11/2022 FINDINGS: There is a transverse fracture of neck of second middle phalanx. The distal fracture fragme nt millimeters dorsal displacement. There is a fracture deformity of base of fifth proximal phalanx. There is mild osteoarthritis of first metatarsophalangeal joint. There are enthesophytes at the poste rior and plantar aspects of calcaneal tuberosity. There is subcutaneous edema of the foot and ankle. IMPRESSION: 1. Transverse fracture of neck of second middle phalanx. 2. Healing/healed fracture deformity of base of fifth proximal phalanx. Reviewed, dictated and finalized at location E.
== END 2023-02-28 08:01 | disposition home or self-care (01) ==
LOC: ANHIMG 08:06
PROVIDERS: PCP Internal Medicine Gastroenterology
DX: S92.504D Nondisplaced unspecified fracture of right lesser toe(s), subsequent encounter for fracture with routine healing (principal); S92.524A Nondisplaced fracture of middle phalanx of right lesser toe(s), initial encounter for closed fracture
CPT/HCPCS: 73700

== ENCOUNTER 2023-03-14 08:41 | Inpatient (IN) | payer OTHER, SELFPAY ==
--- NOTE | ~2023-03-14 | XR_ITS ---
EXAMINATION: XR chest 2V DATE: 03/14/2023 09:24 INDICATION: Chest pain TECHNIQUE: PA and lateral views of the chest are obtained. COMPARISON: 03/31/2021 FINDINGS: There is mild atelectasis of the left lung base. No pleural effusion or pneumothorax. The c ardiomediastinal silhouette is normal. There is mild thoracic spondylosis. Surgical clips in the righ t upper quadrant are likely from prior cholecystectomy. IMPRESSION: 1. Mild atelectasis of the left lung base. Reviewed, dictated and finalized at location L. STIGATION SPECIALIST
--- NOTE | ~2023-03-14 | CT_ITS ---
EXAMINATION: CT abdomen pelvis w con DATE: 03/14/2023 10:37 INDICATION: Epigastric pain TECHNIQUE: Computed tomography (CT) of the abdomen and pelvis was performed with 100 mL Omnipaque-350 intravenous contrast. Automated exposure control and iterative reconstruction technique were employe d. The dose-length product was 1230.24 mGy-cm. COMPARISON: 12/18/2022 FINDINGS: Scattered discoid atelectasis in the bilateral lower lungs. Heart size is normal. No pericardial or p leural effusion. Cholecystectomy clips at the gallbladder fossa. Diffuse hepatic steatosis. There is peripancreatic stranding consistent with acute appendicitis with coarse dystrophic calcific lesions a t the head of the pancreas, likely sequela of prior chronic pancreatitis. No evident necrosis or locu lated fluid collections. Spleen, bilateral adrenal glands are normal. Bilateral nephrolithiasis with three 1-2 mm nonobstructing stones in the right kidney and two in the left kidney. Bowels including t he appendix are normal. T-shaped IUD in expected position within the anteverted uterus. 1.3 cm naboth nicolette cyst at the cervix. 3.7 cm right ovarian cyst/follicle. Bladder and left adnexa are unremarkable. No free intraperitoneal gas or fluid. No pathologically enlarged abdominal or pelvic lymphadenopathy . IMPRESSION: 1. Acute on chronic interstitial pancreatitis. 2. Bilateral nonobstructing nephrolithiasis. 3. IUD in expected position. Reviewed, dictated and finalized at location A. DAM RAKER
--- NOTE | ~2023-03-14 | MR_ITS ---
EXAMINATION: MR MRCP wo/w con/w 3D wo ind DATE: 03/17/2023 09:15 INDICATION: Acute pancreatitis, epigastric pain TECHNIQUE: Magnetic resonance imaging (MRI) of the abdomen was performed without and with intravenous contrast. Sequences included coronal T2-weighted SS-FSE ARC, coronal T2-weighted FS SS-FSE, coronal T2-weighted 2D FS FIESTA, Water:Coronal LAVA-Flex, sagittal T2-weighted SS-FSE ARC, axial SSFSE ARC, axial 3D DualEcho, axial DWI B=600, axial T1-weighted LAVA, FAT:Coronal LAVA-Flex, and coronal in and opposed phase LAVA-Flex. Thick-slab T2-weighted FRFSE-XL images were obtained for magnetic resonance cholangiopancreatography (MRCP). Maximum intensity projection 3-D reconstructions of the volumetric data were created by the technologist. Postcontrast sequences included a time course of axial T1-weig hted LAVA, FAT:Coronal LAVA-Flex, coronal in and opposed phase LAVA-Flex, and Water:Coronal LAVA-Flex . COMPARISON: CT, 03/14/2023 CONTRAST: Multihance, 20 cc FINDINGS: ABDOMEN MRI: There is mild atelectasis of the lung bases. The heart size is normal. There is loss of hepatic parenchymal signal on opposed phase imaging, consistent with hepatic steatosis. There are riaz nges of cholecystectomy. There is mild diffuse edema of the pancreas with subtle peripancreatic fluid . There appears to be uniform enhancement throughout the pancreas. The spleen, kidneys and adrenal gl ands are unremarkable. There are no pathologically enlarged abdominal lymph nodes. No dilated loops o f bowel are identified. There are cysts of the right ovary. ABDOMEN MRCP: No intrahepatic or extrahepatic biliary dilatation. No stones or stricture identified i n the common bile duct. The pancreatic duct is normal in course and somewhat effaced by diffuse pancr eatic edema. There is no pancreatic duct dilatation. IMPRESSION: 1. MR findings consistent with acute interstitial edematous pancreatitis with acute peripancreatic fl uid collection. 2. No biliary stones, stricture, intrahepatic or extrahepatic biliary dilatation. Reviewed, dictated and finalized at location B. CLEANER IMPRESSION: 1. MR findings consistent with acute interstitial edematous pancreatitis with a cute peripancreatic fluid collection. 2. No biliary stones, stricture, intrahepatic or extrahepatic biliary dilatatio n.
--- NOTE | 2023-03-14 08:42 | ECG_ITS ---
Measurements Intervals [place] Rate: 104 P: 45 IA: 154 QRS: 21 QRSD: 89 T: 60 QT: 326 QTc: 429 Interpretive Statements SINUS TACHYCARDIA DELAYED PRECORDIAL R/S TRANSITION BASELINE WANDER- V5-V6 BORDERLINE ECG COMPARED TO ECG 06/14/2022 11:49:14 SINUS TACHYCARDIA NOW PRESENT Electronically Signed On 03-14-2023 9:03:34 DOCTOR OF MEDICINE by Anrol Berry D.O.
[2023-03-14 08:45] VITALS: BP 168/102; PULSE 112; RESP 20; TEMP 36.8; O2SAT 97
[2023-03-14 08:47] VITALS: BP 168/102; PULSE 111; RESP 16; O2SAT 94
--- NOTE | 2023-03-14 08:50 | ED.CHESTPAIN ---
HPI - Chest Pain General Chief Complaint: Chest Pain Stated Complaint: Chest pain and stomach pain Time Seen by Provider: 03/14/23 08:44 History of Present Illness HPI narrative: Pt says she waoke between 2 and 3 am with epigastric and lowe substernal CP. Pt tried to go back to sleep but pain persisted and she mentioned it to mmother at 0400. Pt says the pain feel the same as her pancreatitis in the past. Pt denies SOB. Pt pancreatitis initially thought to be related to gallbladder but had that removed and still had another episode. Pt does not drink alcohol. Pt denies FH of CAD. rated 9/10 pain. Related Data Home Medications Medication Instructions Recorded Confirmed gabapentin 600 mg tablet 600 mg PO TID 03/11/21 03/14/23 insulin glargine 100 unit/mL 30 unit subcut HS 06/24/21 03/14/23 subcutaneous solution (Lantus U-100 Insulin) insulin lispro 100 unit/mL 8 unit subcut TIDWMEAL 06/24/21 03/14/23 subcutaneous pen (Humalog KwikPen (U-100) Insulin) atorvastatin 20 mg tablet 20 mg PO HS 12/19/22 03/14/23 ergocalciferol (vitamin D2) 1,250 50,000 unit PO WEEKLY 12/19/22 03/14/23 mcg (50,000 unit) capsule tramadol 50 mg PO Q6H PRN Pain 03/14/23 03/14/23 Allergies Allergy/AdvReac Type Severity Reaction Status Date / Time No Known Allergies Allergy Unknown Verified 03/14/23 08:50 Review of Systems Review of Systems: All systems reviewed & are unremarkable except as noted in HPI and below PMFSH Past Medical History Medical History (Updated 03/14/23 @ 11:39 by Edison Ortiz III, DO) Asthma Diabetic neuropathy Dyslipidemia Gastroesophageal reflux disease Hypertension Insulin dependent type 2 diabetes mellitus Kidney stones Osteomyelitis of ankle or foot, left, acute Psoriasis Surgical History Surgical History (Updated 12/18/22 @ 15:19 by Delia Dhaliwal PA-C) Amputation of toe of left foot (06/24/21) 4th toe History of laparoscopic cholecystectomy (06/20/22) History of tonsillectomy Family History Family History (Updated 12/19/22 @ 03:36 by Steven A. Vieyra, RN) Grandparent Diabetes mellitus Father Diabetes mellitus Mother Hypertension Grandparent Diabetes mellitus Grandparent Diabetes mellitus Social History Social History (Updated 12/18/22 @ 15:23 by Delia Dhaliwal PA-C) Social History: Surrogate medical decision maker: Carlee River, mother. Code status: Full code. Smoking status: Never smoker Alcohol intake: former Alcohol use details: Rare alcohol use. Substance use: never Substance use type: prescription drug Lack of Transportation: No Lack of Food: Never True Current Housing: I Do Not Have Housing Concerned About Future Housing: No Difficulty Paying Gas/Electric Bills: No Difficulty Paying for Meds: No Currently Unemployed: No Education: High School Diploma/GED Difficulty w/ Childcare or Family Care: No Living arrangements: with family Additional living arrangements comments: Lives in [place]. Two children at home. Spiritual care concerns: No Exam Const: General: healthy appearing and no acute distress Nutritional Appearance: well nourished and obese Orientation/consciousness: patient oriented x3 Limitations: no limitations Eyes: Conjunctivae: conjunctivae normal Neck: Neck: normal visual inspection and no lymphadenopathy Chest: Chest palpation & inspection: normal inspection of the chest Resp: Effort & Inspection: normal respiratory effort Auscultation: clear to auscultation bilaterally Cardio: Rate: tachycardic Rhythm: regular rhythm GI: Auscultation: normal bowel sounds Other: tender to palpation epigastric region Back/Spine/Pelvis: Back: no CVA tenderness Skin: General skin exam: normal color Wounds: no wounds Neuro: General: patient oriented x3, moves all extremities, no meningeal signs and no focal motor deficits Speech: normal speech Extrem: General: normal to ins
[2023-03-14 09:18] LABS: Basophils Absolute Auto 0.1 K/mm3 (0.0-0.1); Basophils Percent Auto 0.5 % (0.2-1.2); Eosinophils Absolute Auto 0.3 K/mm3 (0-0.3); Eosinophils Percent Auto 2.5 % (0-4.4); Hematocrit 43.6 % (37.0-47.0); Hemoglobin 14.6 g/dL (12.0-15.0); Immature Granulocyte Absolute 0.03 K/mm3 (0.00-0.031); Immature Granulocyte Percent A 0.2 % (0-0.5); Lymphocytes Absolute Auto 4.27 K/mm3 (0.9-3.2); Lymphocytes Percent Auto 34.8 % (18.3-44.2); Mean Corpuscular HGB Conc 33.5 g/dl (32-36); Mean Corpuscular Hemoglobin 27.8 pg (26-34); Mean Corpuscular Volume 82.9 fl (80-100); Mean Platelet Volume 11.3 fl (7.4-10.4); Monocytes Absolute Auto 0.9 K/mm3 (0.1-0.6); Monocytes Percent Auto 7.3 % (2.6-8.5); Neutrophils Absolute Auto 6.7 K/mm3 (1.3-6.7); Neutrophils Percent Auto 54.7 % (45.5-73.1); Platelet Count Result 238 k/mm3 (150-375); Red Blood Count 5.26 M/mm3 (4.2-5.4); Red Cell Distribution Width 13.4 % (11.5-14.5); White Blood Count 12.3 K/mm3 (4.5-10.0)
[2023-03-14] MEDS: ASPIRIN 81 MG CHEWABLE TABLET 324 MG PO (09:29)
[2023-03-14] MEDS: ONDANSETRON INJ 4 MG/2 ML VIAL IV PUSH (09:29)
[2023-03-14] MEDS: fentaNYL CITRATE INJ (*CRX) 100 MCG/2 ML VIAL 50 MCG IV PUSH (09:30)
[2023-03-14 09:33] LABS: INR 0.9; Prothrombin Time 12.4 Seconds (11.1-14.7)
[2023-03-14 09:34] LABS: Partial Thromboplastin Time 27.3 SECONDS (22.3-36.8)
[2023-03-14 09:36] LABS: Alanine Aminotransferase 59 U/L (6-35); Albumin Level 4.2 g/dL (3.5-5.1); Alkaline Phosphatase 109 U/L (38-126); Anion Gap 8 mmol/L (8-16); Aspartate Amino Transferase 60 U/L (14-36); Bilirubin,Total 0.5 mg/dL (0.2-1.3); Blood Urea Nitrogen 17 mg/dL (7-17); Calcium 9.5 mg/dL (8.4-10.2); Carbon Dioxide 26 mmol/L (22-30); Chloride 99 mmol/L (98-107); Estimated Glomerular Filt Rate > 60; Glucose 404 mg/dL (65-110); Potassium 4.4 mmol/L (3.4-5.0); Sodium 133 mmol/L (137-145)
[2023-03-14 09:44] LABS: Troponin I 0.019 ng/mL (0.000-0.034)
[2023-03-14 10:18] VITALS: BP 154/75; PULSE 104; RESP 18; O2SAT 97
[2023-03-14 10:20] VITALS: BP 154/75; PULSE 103; RESP 24; O2SAT 97
[2023-03-14 10:51] LABS: Lipase 10638 U/L (23-300)
[2023-03-14] MEDS: SODIUM CHLORIDE 0.9% IV 1,000 ML 125 ML IV CONT (12:09)
[2023-03-14 12:25] LABS: Triglycerides 340 mg/dL (<150)
--- NOTE | 2023-03-14 12:30 | PC.NURSE ---
This RN made aware BG [id number], no actions needed.
[2023-03-14 12:31] VITALS: BP 134/82; PULSE 98; RESP 16; O2SAT 99
[2023-03-14 12:31] LABS: Glucose Point of Care 294 mg/dl (65-105)
[2023-03-14 12:37] LABS: Troponin I 0.014 ng/mL (0.000-0.034)
[2023-03-14 14:08] VITALS: BMI 42.5
--- NOTE | 2023-03-14 14:18 | ADMGEN ---
This patient, Gem Morales, was admitted to [facility] Surg Room 323-02. Patient/family oriented to hospital policies and general routines including ID bracelet, bed and alarms, visiting hours, pain management, procedures, bathroom and other care routines, personal items, smoking policy, room service/diet, and visiting hours. Information on how to activate the Rapid Response Team has been discussed. Patient/Family are encouraged to report perceived risks to care and to ask questions if they do not understand what they are told or what they should do.
[2023-03-14 15:30] LABS: Troponin I 0.014 ng/mL (0.000-0.034)
--- NOTE | 2023-03-14 17:07 | PM.IMHP ---
H&P: HPI History of Present Illness Date/Time: 03/14/23 17:07 Chief Complaint: Epigastric Pain Narrative: 38 y/o F presents here with epigastric pain and chest tightness with PMH of asthma, dyslipidemia, GERD, HTN, dm2, psoriasis, kidney stones, and pancreatitis. Patient reports that last night before she went to bed at 1 am she felt like her normal self. Around 430 she believes she was woken up due to epigastric pain. Significant other attempted to convince patient to come seek care at the hospital, however patient wanted to make sure her child was dropped off at school in the morning. After child was dropped off, she sought care here. Reports that she has been having epigastric pain that radiates into her back and across her chest that is constant. Describes chest discomfort as tightness. Associated nausea without vomiting. She denies change in stool color or diarrhea. Currently following with a GI provider, 1st appointment was 1-2 weeks ago and she is awaiting a follow-up appointment which will be scheduled after they obtain her records. She denies any current alcohol use and has been attempting to cut red meat out of her diet and only occasionally consumes this. She has had to exacerbations of pancreatitis in the past year with a 1st in April and the 2nd in December. During initial pancreatitis workup, hepatobiliary scan revealed chronic cholecystitis, potentially driving factor of chronic pancreatitis. Has since had cholecystectomy. Currently requesting to attempt clear liquid diet. Review of Systems Review of Systems: All systems reviewed & are unremarkable except as noted in HPI and below PMFSH Past Medical History Medical History (Updated 03/14/23 @ 21:58 by Jamaica Cao APRN) Asthma Chronic pancreatitis Diabetic neuropathy Dyslipidemia Gastroesophageal reflux disease Hepatic steatosis Hypertension Insulin dependent type 2 diabetes mellitus Kidney stones Osteomyelitis of ankle or foot, left, acute Psoriasis Surgical History Surgical History Amputation of toe of left foot (06/24/21) 4th toe History of laparoscopic cholecystectomy (06/20/22) History of tonsillectomy Family History Family History Grandparent Diabetes mellitus Father Diabetes mellitus Mother Hypertension Grandparent Diabetes mellitus Grandparent Diabetes mellitus Social History Social History (Updated 03/14/23 @ 22:02 by Jamaica Cao APRN) Social History: Lives with Mother, significant other (bf), and children. Surrogate medical decision maker: Carlee River, mother. Code status: Full code. Smoking status: Never smoker Alcohol intake: former Alcohol use details: Rare alcohol use. Substance use: never Substance use type: prescription drug Lack of Transportation: No Lack of Food: Never True Current Housing: I Do Not Have Housing Concerned About Future Housing: No Difficulty Paying Gas/Electric Bills: No Difficulty Paying for Meds: No Currently Unemployed: No Education: High School Diploma/GED Difficulty w/ Childcare or Family Care: No Living arrangements: with family Additional living arrangements comments: Lives in [place]. Two children at home. Spiritual care concerns: No Meds Home Medications and Allergies Home Medications Medication Instructions Recorded Confirmed Type gabapentin 600 mg tablet 600 mg PO TID 03/11/21 03/14/23 History insulin glargine 100 unit/mL 30 unit subcut HS 06/24/21 03/14/23 History subcutaneous solution (Lantus U-100 Insulin) insulin lispro 100 unit/mL 8 unit subcut TIDWMEAL 06/24/21 03/14/23 History subcutaneous pen (Humalog KwikPen (U-100) Insulin) atorvastatin 20 mg tablet 20 mg PO HS 12/19/22 03/14/23 History ergocalciferol (vitamin D2) 1,250 50,000 unit PO WEEKLY 12/19/22 03/14/23 History
[2023-03-14] MEDS: GABAPENTIN 300 MG CAPSULE 600 MG PO (17:25)
[2023-03-14] MEDS: INSULIN ASPART (*BKC) 100 UNITS/ML 8 UNITS SUB-Q (17:25)
[2023-03-14] MEDS: KETOROLAC 30 MG/ML VIAL (*BKC) IV PUSH (17:26)
[2023-03-14 18:42] LABS: Glucose Point of Care 223 mg/dl (65-105)
[2023-03-14 20:39] LABS: Glucose Point of Care 326 mg/dl (65-105)
[2023-03-14] MEDS: INSULIN GLARGINE (*BKC) 100 UNITS/ML 30 UNITS SUB-Q (20:58)
[2023-03-14] MEDS: INSULIN ASPART (*BKC) 100 UNITS/ML SUB-Q (20:58)
[2023-03-14] MEDS: SENNA/DOCUSATE SODIUM TABLET 1 TAB PO (21:05)
[2023-03-14 21:36] VITALS: BP 121/69; PULSE 86; RESP 14; TEMP 36.1; O2SAT 98
[2023-03-15] MEDS: fentaNYL CITRATE INJ (*CRX) 100 MCG/2 ML VIAL 50 MCG IV PUSH ×5 (05:06→20:32)
[2023-03-15] MEDS: SODIUM CHLORIDE 0.9% IV 1,000 ML 125 ML IV CONT ×3 (05:07→20:32)
[2023-03-15 05:49] VITALS: BP 113/64; PULSE 86; RESP 13; TEMP 36.1; O2SAT 99
[2023-03-15 06:04] LABS: Alanine Aminotransferase 53 U/L (6-35); Aspartate Amino Transferase 61 U/L (14-36); Lipase 902 U/L (23-300)
[2023-03-15 06:09] LABS: Hemoglobin A1C 10.3 % (<5.7)
[2023-03-15 08:07] LABS: Glucose Point of Care 182 mg/dl (65-105)
[2023-03-15] MEDS: INSULIN ASPART (*BKC) 100 UNITS/ML 8 UNITS SUB-Q ×3 (09:26→17:19)
[2023-03-15] MEDS: GABAPENTIN 300 MG CAPSULE 600 MG PO ×3 (09:27→17:18)
[2023-03-15] MEDS: PANTOPRAZOLE 40 MG TABLET PO (09:27)
--- NOTE | 2023-03-15 10:23 | PM.IMPN ---
Progress Note: A&P Assessment and Plan (1) Acute on chronic pancreatitis: Code(s): K85.90 - Acute pancreatitis without necrosis or infection, unspecified; K86.1 - Other chronic pancreatitis Status: Acute (2) Insulin dependent type 2 diabetes mellitus: Code(s): E11.9 - Type 2 diabetes mellitus without complications; Z79.4 - jail (current) use of insulin Status: Acute (3) Elevated liver enzymes: Code(s): R74.8 - Abnormal levels of other serum enzymes Status: Acute Plan Problem List 1. Acute on chronic pancreatitis IVF con't trend lipase, currently 902 trend LFTs, current AST 61 and ALT 53. Last checked in December and WNL. Held atorvastatin and fenofibrate, resume as appropriate. triglycerides - 340, previously elevated at 629 with downtrend to 213 in 12/2022 during last pancreatic flare. calcium - 9.5 pain control with Fentanyl 50 mcg IV Q2H, transition to PO once able to tolerate. Home tramadol held. zofran prn for nausea CT abd/pelvis w con - acute on chronic interstitial pancreatitis, bilateral nonobstructing nephrolithiasis, IUD in place. ETOH - She denies alcohol intake. meds - no other predisposing medications to pancreatitis. hold on consultation to dietitian - patient currently reporting adherence to a low-fat diet and attempting to cut red meat, consider re-education if indicated. diet - trial full liquid diet per patient request. Plan to advance patient's diet as tolerated. 2. DM2, insulin dependent hypoglycemia protocol POC blood glucose ACHS Home medication resumed: Humalog (NovoLog subbed) 8 units t.i.d. WM and Lantus 30 units HS correct regimen ordered - low dose TIDWM and HS A1C - 10.3 Chronic Conditions - HLD: hold atorvastatin and fenofibrate, LFTs elevated. Resume as appropriate. - Continue home gabapentin, vitamin D2, pantoprazole - requested meds for constipation - start MiraLax daily and senna/docusate PRN daily Diet: trial of full liquid diet GI Prophylaxis: continue home pantoprazole DVT Prophylaxis: SCDs, low risk - hold pharm Lines: pIV Code Status: Full Code Subjective Date/time seen: 03/15/23 10:23 Interval history: 38 YO female admitted for epigastric pain and chest tightness with PMH of asthma, dyslipidemia, GERD, HTN, dm2, psoriasis, kidney stones, and chronic pancreatitis. She had a cholecystectomy in June of this year, with no complications. She is sitting up tolerating clear liquids this morning. She reports having some abdominal pain but is controlled with pain medications. She denies worsening of her symptoms with liquids. She is not currently taking any weight loss medications. She denies N/V, chills. She had a BM this morning. Her lipase is trending down at 902 this morning. Liver enzymes slightly improved. Will continue IVF and see how she tolerates full liquids this afternoon. Review of Systems Review of Systems: All systems reviewed & are unremarkable except as noted in HPI and below Exam Narrative: General: Awake, alert and oriented. No acute distress. Well developed, hydrated and nourished. Appears stated age. Skin: Skin in warm, dry and intact without rashes or lesions. Eyes: Conjunctivae are clear without exudates or hemorrhage. EOM are intact, PERRLA. Nose: Nasal mucosa is pink and moist. The nasal septum is midline. Nares are patent bilaterally. Neck: The neck is supple without adenopathy. Trachea is midline. Thyroid gland is normal without masses. Cardiac: RRR. No murmurs, gallops, or rubs are auscultated. Respiratory: The chest wall is symmetric and without deformity. No signs of trauma.No signs of respiratory distress. Lung sounds clear in all lobes bilaterally without rales, ronchi, or wheezes. Abdominal: Abdomen is soft, tender to palpation.Bowel sounds are present and normoactive in all four quadrants. No masses, hepatomegaly, or splenomegaly are noted. Extremities: No s
[2023-03-15 11:38] LABS: Glucose Point of Care 314 mg/dl (65-105)
[2023-03-15] MEDS: INSULIN ASPART (*BKC) 100 UNITS/ML SUB-Q ×3 (11:55→21:16)
[2023-03-15 14:00] VITALS: BP 118/72; PULSE 88; RESP 16; TEMP 36.9; O2SAT 96
[2023-03-15 17:02] LABS: Glucose Point of Care 220 mg/dl (65-105)
[2023-03-15] MEDS: ONDANSETRON INJ 4 MG/2 ML VIAL IV PUSH (18:51)
[2023-03-15] MEDS: INSULIN GLARGINE (*BKC) 100 UNITS/ML 30 UNITS SUB-Q (21:16)
[2023-03-15 21:45] LABS: Glucose Point of Care 252 mg/dl (65-105)
[2023-03-15 22:00] VITALS: BP 129/87; PULSE 99; RESP 16; TEMP 36.9; O2SAT 90
[2023-03-16] MEDS: ONDANSETRON INJ 4 MG/2 ML VIAL IV PUSH ×3 (02:05→21:34)
[2023-03-16] MEDS: fentaNYL CITRATE INJ (*CRX) 100 MCG/2 ML VIAL 50 MCG IV PUSH ×5 (02:05→21:34)
[2023-03-16] MEDS: SODIUM CHLORIDE 0.9% IV 1,000 ML 125 ML IV CONT ×2 (04:19→12:27)
[2023-03-16 06:00] VITALS: BP 125/77; PULSE 102; RESP 18; TEMP 36.3; O2SAT 93
[2023-03-16 08:01] LABS: Glucose Point of Care 169 mg/dl (65-105)
[2023-03-16 08:23] LABS: Hemoglobin 12.4 g/dL (12.0-15.0); Mean Corpuscular HGB Conc 31.8 g/dl (32-36); Mean Corpuscular Hemoglobin 27.4 pg (26-34); Mean Corpuscular Volume 86.1 fl (80-100); Mean Platelet Volume 10.7 fl (7.4-10.4); Platelet Count Result 197 k/mm3 (150-375); Red Blood Count 4.53 M/mm3 (4.2-5.4); Red Cell Distribution Width 13.8 % (11.5-14.5); White Blood Count 11.5 K/mm3 (4.5-10.0)
[2023-03-16] MEDS: INSULIN ASPART (*BKC) 100 UNITS/ML 8 UNITS SUB-Q ×2 (08:42→12:33)
[2023-03-16] MEDS: GABAPENTIN 300 MG CAPSULE 600 MG PO ×3 (08:43→17:33)
[2023-03-16] MEDS: PANTOPRAZOLE 40 MG TABLET PO (08:43)
[2023-03-16] MEDS: polyethylene glycoL 3350 17 GM POWD.PACK PO (08:43)
[2023-03-16 08:44] LABS: Anion Gap 3 mmol/L (8-16); Blood Urea Nitrogen 8 mg/dL (7-17); Calcium 8.4 mg/dL (8.4-10.2); Carbon Dioxide 30 mmol/L (22-30); Chloride 105 mmol/L (98-107); Estimated Glomerular Filt Rate > 60; Glucose 174 mg/dL (65-110); Potassium 3.9 mmol/L (3.4-5.0); Sodium 138 mmol/L (137-145)
[2023-03-16 09:13] LABS: Lipase 6534 U/L (23-300)
--- NOTE | 2023-03-16 10:39 | PM.IMPN ---
Progress Note: A&P Assessment and Plan (1) Acute on chronic pancreatitis: Code(s): K85.90 - Acute pancreatitis without necrosis or infection, unspecified; K86.1 - Other chronic pancreatitis Status: Acute (2) Insulin dependent type 2 diabetes mellitus: Code(s): E11.9 - Type 2 diabetes mellitus without complications; Z79.4 - custodial (current) use of insulin Status: Acute (3) Elevated liver enzymes: Code(s): R74.8 - Abnormal levels of other serum enzymes Status: Acute Plan Problem List 1. Acute on chronic pancreatitis IVF con't trend lipase, jump from 902 to >6000 today; GI consulted trend LFTs, Held atorvastatin and fenofibrate, resume as appropriate. triglycerides - 340, previously elevated at 629 with downtrend to 213 in 12/2022 during last pancreatic flare. calcium - 9.5 pain control with Fentanyl 50 mcg IV Q2H, transition to PO once able to tolerate. Home tramadol held. zofran prn for nausea CT abd/pelvis w con - acute on chronic interstitial pancreatitis, bilateral nonobstructing nephrolithiasis, IUD in place. ETOH - She denies alcohol intake. meds - no other predisposing medications to pancreatitis. hold on consultation to dietitian - patient currently reporting adherence to a low-fat diet and attempting to cut red meat, consider re-education if indicated. diet - trial full liquid diet failed, will scale back to clears. Consider NPO if needed. 2. DM2, insulin dependent hypoglycemia protocol POC blood glucose ACHS Home medication resumed: Humalog (NovoLog subbed) 8 units t.i.d. WM and Lantus 30 units HS correct regimen ordered - low dose TIDWM and HS A1C - 10.3 Chronic Conditions - HLD: hold atorvastatin and fenofibrate, LFTs elevated. Resume as appropriate. - Continue home gabapentin, vitamin D2, pantoprazole - requested meds for constipation - start MiraLax daily and senna/docusate PRN daily Diet: clears GI Prophylaxis: continue home pantoprazole DVT Prophylaxis: SCDs, low risk - hold pharm Lines: pIV Code Status: Full Code Subjective Date/time seen: 03/16/23 10:39 Interval history: 38 YO female admitted for epigastric pain and chest tightness with PMH of asthma, dyslipidemia, GERD, HTN, dm2, psoriasis, kidney stones, and chronic pancreatitis. She had a cholecystectomy in June of this year, with no complications. She attempted full liquids yesterday including, chicken noodle soup and applesauce which did not settle well. She felt her pain worsened in the afternoon and that her pain medication gave relief for only about an hour. She experienced nausea as well. She was requiring pain medication as often as it could be given throughout the rest of the day. She is passing gas, but has not yet had a bowel movement today. Her lipase went from 902 to >6000 this morning. Will continue IVF and scale back to clears. May need to be NPO. GI consulted for recommendations on if additional imaging is needed given her history of a sherman this year. Review of Systems Review of Systems: All systems reviewed & are unremarkable except as noted in HPI and below Exam Narrative: General: Awake, alert and oriented. No acute distress. Well developed, hydrated and nourished. Appears stated age. Skin: Skin in warm, dry and intact without rashes or lesions. Eyes: Conjunctivae are clear without exudates or hemorrhage. EOM are intact, PERRLA. Nose: Nasal mucosa is pink and moist. The nasal septum is midline. Nares are patent bilaterally. Neck: The neck is supple without adenopathy. Trachea is midline. Thyroid gland is normal without masses. Cardiac: RRR. No murmurs, gallops, or rubs are auscultated. Respiratory: The chest wall is symmetric and without deformity. No signs of trauma.No signs of respiratory distress. Lung sounds clear in all lobes bilaterally without rales, ronchi, or wheezes. Abdominal: Abdomen is soft, tender to palpation. Bowel
[2023-03-16 12:14] LABS: Glucose Point of Care 207 mg/dl (65-105)
[2023-03-16] MEDS: METOCLOPRAMIDE HCL INJ 10 MG/2 ML VIAL IV PUSH (12:26)
[2023-03-16] MEDS: INSULIN ASPART (*BKC) 100 UNITS/ML SUB-Q (12:34)
[2023-03-16 14:00] VITALS: BP 114/62; PULSE 97; RESP 16; TEMP 36.9; O2SAT 95
--- NOTE | 2023-03-16 14:45 | WPDGICN ---
Assessment and Plan Assessment and plan (1) Acute pancreatitis: Code(s): K85.90 - Acute pancreatitis without necrosis or infection, unspecified Status: Acute Assessment and Plan: Patient has acute pancreatitis. Her lipase up to 6000 today. I would recommend she be kept NPO with strict bowel rest at present. Continue pain control. Supportive care for now. She previously had a cholecystectomy. She does not drink alcohol. I suspect this may be idiopathic pancreatitis. Her lipid level reveals triglycerides 340 which is not high enough typically to cause pancreatitis. We will check IgG4 level to exclude autoimmune hepatitis. Continue supportive care for now and only reintroduce diet after pain is subsided not requiring such significant amount of pain medications. (2) Insulin dependent type 2 diabetes mellitus: Code(s): E11.9 - Type 2 diabetes mellitus without complications; Z79.4 - [employer] continuous [employer] (current) use of insulin Status: Acute (3) History of laparoscopic cholecystectomy: Onset Date: 06/20/22 Code(s): Z90.49 - Acquired absence of other specified parts of digestive tract Status: Acute GI Consult Note Consult date/time: 03/16/23 14:45 Reason for consult: Pancreatitis. HPI: Gem Morales is a 38 year old female I am asked to see at the request the hospitalist service because of pancreatitis. Patient reports upper abdominal pain over the last 2-3 days. Patient went to the emergency room because of this ongoing pain and was found to have elevated lipase consistent with pancreatitis. CT scan revealed interstitial pancreatitis. Patient reports this is the 3rd episode of pancreatitis this year. She initially had an episode of pancreatitis in May. She underwent cholecystectomy pathology showed chronic cholecystitis. She did have a subsequent episode several months ago, in now this is our 3rd episode. Patient denies any family history of pancreatitis. She denies alcohol intake. She has had no new medications. She is treated for diabetes mellitus and has peripheral neuropathy for which she takes gabapentin. She has had a toe fracture and a toe amputation in the past. Patient continues to require pain medications at present. Review of Systems Review of Systems: Review of systems noncontributory. [facility] Past Medical History Medical History (Updated 03/16/23 @ 14:48 by Pacheco Johns MD) Asthma Chronic pancreatitis Diabetic neuropathy Dyslipidemia Gastroesophageal reflux disease Hepatic steatosis Hypertension Insulin dependent type 2 diabetes mellitus Kidney stones Osteomyelitis of ankle or foot, left, acute Psoriasis Surgical History Surgical History (Updated 03/16/23 @ 14:48 by Pacheco Johns MD) Amputation of toe of left foot (06/24/21) 4th toe History of laparoscopic cholecystectomy (06/20/22) History of tonsillectomy Family History Family History Grandparent Diabetes mellitus Father Diabetes mellitus Mother Hypertension Grandparent Diabetes mellitus Grandparent Diabetes mellitus Social History Social History (Updated 03/14/23 @ 22:02 by Jamaica Cao APRN) Social History: Lives with Mother, significant other (bf), and children. Surrogate medical decision maker: Carlee River, mother. Code status: Full code. Smoking status: Never smoker Alcohol intake: former Alcohol use details: Rare alcohol use. Substance use: never Substance use type: prescription drug Lack of Transportation: No Lack of Food: Never True Current Housing: I Do Not Have Housing Concerned About Future Housing: No Difficulty Paying Gas/Electric Bills: No Difficulty Paying for Meds: No Currently Unemployed: No Education: High School Diploma/GED Difficulty w/ Childcare or Family Care: No Living arrangements: with family Additional living arrangements comment
[2023-03-16 17:01] LABS: Glucose Point of Care 150 mg/dl (65-105)
[2023-03-16 17:02] LABS: Lipase 3314 U/L (23-300)
[2023-03-16] MEDS: LACTATED RINGERS 1,000 ML 100 ML IV CONT (17:32)
[2023-03-16 22:00] VITALS: BP 119/75; PULSE 98; RESP 16; TEMP 36.3; O2SAT 95
[2023-03-17 00:24] LABS: Glucose Point of Care 128 mg/dl (65-105)
[2023-03-17] MEDS: LACTATED RINGERS 1,000 ML 100 ML IV CONT ×2 (03:34→13:24)
[2023-03-17] MEDS: ONDANSETRON INJ 4 MG/2 ML VIAL IV PUSH (04:25)
[2023-03-17] MEDS: fentaNYL CITRATE INJ (*CRX) 100 MCG/2 ML VIAL 50 MCG IV PUSH (04:26)
[2023-03-17 06:00] VITALS: BP 115/68; PULSE 88; RESP 17; TEMP 37; O2SAT 90
[2023-03-17 06:52] LABS: Glucose Point of Care 140 mg/dl (65-105)
--- NOTE | 2023-03-17 06:55 | WPDGIPROGNO ---
Progress Note: A&P Assessment and Plan (1) Acute on chronic pancreatitis: Code(s): K85.90 - Acute pancreatitis without necrosis or infection, unspecified; K86.1 - Other chronic pancreatitis Status: Acute Assessment and Plan: etiology is uncertain. She had a cholecystectomy earlier this year thinking that would solve it. She has had 2 episodes of pancreatitis since then. Will obtain MRCP today to rule out choledocholithiasis. She may also have ampullary stenosis. At some point she may need ERCP. (2) Hypertriglyceridemia: Code(s): E78.1 - Pure hyperglyceridemia Status: Acute Assessment and Plan: Primary care physician treat her hyperlipidemia. Although her triglycerides are elevated I do not think that that is the sole reason for her pancreatitis. (3) History of laparoscopic cholecystectomy: Onset Date: 06/20/22 Code(s): Z90.49 - Acquired absence of other specified parts of digestive tract Status: Acute Assessment and Plan: Cholecystectomy in June of this year. Gallbladder was intact. There were no stones seen which reduces the likelihood of her having choledocholithiasis (4) Insulin dependent type 2 diabetes mellitus: Code(s): E11.9 - Type 2 diabetes mellitus without complications; Z79.4 - alf (current) use of insulin Status: Acute Assessment and Plan: she has been on insulin for some time. Her weight fluctuates. She has not been able to lose any significant amount of weight Subjective Date/time seen: 03/17/23 06:55 she is feeling a bit better today. Willing to try liquids. She is concerned about the fact she continues to get pancreatitis as she thought the cholecystectomy which prevent that. She had been told yesterday that she may have debris in her common bile duct. I told her that that is a good possibility. I will order an MRCP although it would likely miss Sludge and very small stones. I told that she may need ERCP. Exam Const: General: cooperative and healthy appearing Nutritional Appearance: obese Orientation/consciousness: patient oriented x3 HENMT: Head: normal to inspection Ears: hearing grossly normal bilaterally Mouth: Yes Normal oral and palatal mucosa present Eyes: General: appearance normal, both eyes and all related structures Neck: Neck: normal visual inspection Chest: Chest palpation & inspection: normal inspection of the chest Resp: Effort & Inspection: normal respiratory effort Auscultation: clear to auscultation bilaterally Cardio: Rate: regular rate Rhythm: regular rhythm GI: Inspection: normal to inspection GI Palp: Yes Soft to palpation, Yes Tenderness to palpation present (GI) ( mild, upper abdomen), No Guarding due to palpation present (GI) and Yes No hepatosplenomegaly present Auscultation: normal bowel sounds Skin: General skin exam: normal color and no jaundice Neuro: General: patient oriented x3 Speech: normal speech Objective Data Vital Signs Vital Signs: Vital Signs - 24 hr 03/16/23 14:00 03/16/23 22:00 03/16/23 20:00 Temperature 36.9 C 36.3 C L Pulse Rate 97 98 Respiratory Rate 16 16 Blood Pressure 114/62 119/75 Pulse Oximetry 95 95 Oxygen Delivery Room Air 03/17/23 06:00 Temperature 37.0 C Pulse Rate 88 Respiratory Rate 17 Blood Pressure 115/68 Pulse Oximetry 90 Oxygen Delivery Intake/Output Intake/Output: Intake & Output 03/14/23 03/15/23 03/16/23 03/17/23 23:59 23:59 23:59 23:59 Intake Total 4348 2980 1250 Balance 4348 2980 1250 Meds/Results Medications: Active Medications Generic Name Dose Route Start Last Admin Trade Name Freq PRN Reason Stop Dose Admin Dextrose 12.5 gm 03/14/23 17:11 Dextrose 50% 25 Gm/50 Ml Syringe IV PUSH PRN PRN Hypoglycemia Protocol Ergocalciferol 50,000 units 03/17/23 09:00 Ergocalciferol 50,000 Units Capsule PO WEEKLY LELE Fentanyl Citrate 50 mcg
[2023-03-17 07:00] LABS: Hematocrit 35.6 % (37.0-47.0); Hemoglobin 11.3 g/dL (12.0-15.0); Mean Corpuscular HGB Conc 31.7 g/dl (32-36); Mean Corpuscular Hemoglobin 27.6 pg (26-34); Mean Platelet Volume 11.3 fl (7.4-10.4); Platelet Count Result 194 k/mm3 (150-375); Red Blood Count 4.09 M/mm3 (4.2-5.4); Red Cell Distribution Width 13.9 % (11.5-14.5); White Blood Count 11.6 K/mm3 (4.5-10.0)
[2023-03-17 07:24] LABS: Alanine Aminotransferase 33 U/L (6-35); Albumin Level 3.1 g/dL (3.5-5.1); Alkaline Phosphatase 69 U/L (38-126); Anion Gap 6 mmol/L (8-16); Aspartate Amino Transferase 35 U/L (14-36); Bilirubin,Total 0.6 mg/dL (0.2-1.3); Blood Urea Nitrogen 9 mg/dL (7-17); Calcium 8.4 mg/dL (8.4-10.2); Carbon Dioxide 25 mmol/L (22-30); Chloride 105 mmol/L (98-107); Estimated Glomerular Filt Rate > 60; Glucose 132 mg/dL (65-110); Potassium 4.2 mmol/L (3.4-5.0); Sodium 136 mmol/L (137-145)
[2023-03-17] MEDS: GABAPENTIN 300 MG CAPSULE 600 MG PO ×2 (11:07→16:45)
[2023-03-17] MEDS: polyethylene glycoL 3350 17 GM POWD.PACK PO (11:07)
[2023-03-17] MEDS: ERGOCALCIFEROL 50,000 UNITS CAPSULE 50000 UNITS PO (11:07)
[2023-03-17] MEDS: PANTOPRAZOLE 40 MG TABLET PO (11:07)
[2023-03-17 11:52] LABS: Glucose Point of Care 155 mg/dl (65-105)
[2023-03-17 13:01] LABS: Glucose Point of Care 269 mg/dl (65-105)
[2023-03-17] MEDS: INSULIN ASPART (*BKC) 100 UNITS/ML 8 UNITS SUB-Q (13:19)
[2023-03-17] MEDS: INSULIN ASPART (*BKC) 100 UNITS/ML SUB-Q (13:20)
[2023-03-17 14:00] VITALS: BP 124/77; PULSE 104; RESP 16; TEMP 37; O2SAT 99
--- NOTE | 2023-03-17 15:56 | PM.IMPN ---
Progress Note: A&P Assessment and Plan (1) Acute on chronic pancreatitis: Code(s): K85.90 - Acute pancreatitis without necrosis or infection, unspecified; K86.1 - Other chronic pancreatitis Status: Acute (2) Insulin dependent type 2 diabetes mellitus: Code(s): E11.9 - Type 2 diabetes mellitus without complications; Z79.4 - [facility] (current) use of insulin Status: Acute (3) Elevated liver enzymes: Code(s): R74.8 - Abnormal levels of other serum enzymes Status: Acute Plan Problem List 1. Acute on chronic pancreatitis IVF con't, trial clears again today trend lipase, down to 3314 today GI consulted trend LFTs, Held atorvastatin and fenofibrate, resume as appropriate. triglycerides - 340, previously elevated at 629 with downtrend to 213 in 12/2022 during last pancreatic flare. calcium - 9.5 pain control with Fentanyl 50 mcg IV Q2H, transition to PO once able to tolerate. Home tramadol held. zofran, reglan prn for nausea CT abd/pelvis w con - acute on chronic interstitial pancreatitis, bilateral nonobstructing nephrolithiasis, IUD in place. diet - trial full liquid diet failed, will scale back to clears. 2. DM2, insulin dependent hypoglycemia protocol POC blood glucose ACHS Home medication resumed: Humalog (NovoLog subbed) 8 units t.i.d. WM and Lantus 30 units HS correct regimen ordered - low dose TIDWM and HS A1C - 10.3 Chronic Conditions - HLD: hold atorvastatin and fenofibrate, LFTs elevated. Resume as appropriate. - Continue home gabapentin, vitamin D2, pantoprazole - requested meds for constipation - start MiraLax daily and senna/docusate PRN daily Diet: clears GI Prophylaxis: continue home pantoprazole DVT Prophylaxis: SCDs, low risk - hold pharm Lines: pIV Code Status: Full Code Subjective Date/time seen: 03/17/23 15:56 Interval history: 38 YO female admitted for epigastric pain and chest tightness with PMH of asthma, dyslipidemia, GERD, HTN, dm2, psoriasis, kidney stones, and chronic pancreatitis. She had a cholecystectomy in June of this year, with no complications. She was NPO throughout the night with some improvement in her pain. She has not required pain medication yet this morning. She is passing gas, but has not yet had a bowel movement today. Her lipase has decreased overnight. Will continue IVF and trial clear liquids. GI consulted and ordered MRCP which showed some acute pancreatic edema, will await GI plan if we watch and wait or if intervention is needed. Review of Systems Review of Systems: All systems reviewed & are unremarkable except as noted in HPI and below Exam Narrative: General: Awake, alert and oriented. No acute distress. Well developed, hydrated and nourished. Appears stated age. Skin: Skin in warm, dry and intact without rashes or lesions. Eyes: Conjunctivae are clear without exudates or hemorrhage. EOM are intact, PERRLA. Nose: Nasal mucosa is pink and moist. The nasal septum is midline. Nares are patent bilaterally. Neck: The neck is supple without adenopathy. Trachea is midline. Thyroid gland is normal without masses. Cardiac: RRR. No murmurs, gallops, or rubs are auscultated. Respiratory: The chest wall is symmetric and without deformity. No signs of trauma.No signs of respiratory distress. Lung sounds clear in all lobes bilaterally without rales, ronchi, or wheezes. Abdominal: Abdomen is soft, tender to palpation. Bowel sounds are present and normoactive in all four quadrants. No masses, hepatomegaly, or splenomegaly are noted. Extremities: No swelling or erythema. Pulses palpable. Steady gait noted. Neurological: A&O x3 with normal speech.Cranial nerves are intact. Memory is normal and thought process is intact. No gait abnormalities are appreciated. Psychiatric: Appropriate mood and affect. Good judgement and insight. No visual or auditory hallucinations. No suicidal or homicidal ideatio
[2023-03-17 17:40] LABS: Glucose Point of Care 168 mg/dl (65-105)
[2023-03-17 20:41] LABS: Glucose Point of Care 192 mg/dl (65-105)
[2023-03-17] MEDS: INSULIN GLARGINE (*BKC) 100 UNITS/ML 30 UNITS SUB-Q (21:15)
[2023-03-17 21:28] VITALS: BP 115/71; PULSE 85; RESP 14; TEMP 36.7; O2SAT 93
[2023-03-17] MEDS: HYDROcodone/acetaminophen (*CRX) 5-325 MG TABLET 1 TAB PO (22:53)
[2023-03-17 23:36] LABS: Glucose Point of Care 149 mg/dl (65-105)
[2023-03-18] MEDS: LACTATED RINGERS 1,000 ML 100 ML IV CONT ×2 (01:15→12:12)
[2023-03-18 05:34] LABS: Glucose Point of Care 142 mg/dl (65-105)
[2023-03-18 06:00] VITALS: BP 102/63; PULSE 81; RESP 13; TEMP 36.4; O2SAT 93
[2023-03-18 08:11] LABS: Hematocrit 34.8 % (37.0-47.0); Mean Corpuscular HGB Conc 31.6 g/dl (32-36); Mean Corpuscular Hemoglobin 27.2 pg (26-34); Mean Corpuscular Volume 86.1 fl (80-100); Mean Platelet Volume 11.4 fl (7.4-10.4); Platelet Count Result 201 k/mm3 (150-375); Red Blood Count 4.04 M/mm3 (4.2-5.4); Red Cell Distribution Width 13.9 % (11.5-14.5); White Blood Count 9.1 K/mm3 (4.5-10.0)
[2023-03-18 08:25] LABS: Lipase 215 U/L (23-300)
--- NOTE | 2023-03-18 08:40 | WPDGIPROGNO ---
Progress Note: A&P Assessment and Plan (1) Acute on chronic pancreatitis: Code(s): K85.90 - Acute pancreatitis without necrosis or infection, unspecified; K86.1 - Other chronic pancreatitis Status: Acute Assessment and Plan: etiology is uncertain. She had a cholecystectomy earlier this year thinking that would solve it. She has had 2 episodes of pancreatitis since then. Will obtain MRCP today to rule out choledocholithiasis. She may also have ampullary stenosis. At some point she may need ERCP. MRCP did not reveal choledocholithiasis, pancreas divisum, or dilatation of ducts. (2) Hypertriglyceridemia: Code(s): E78.1 - Pure hyperglyceridemia Status: Acute Assessment and Plan: Primary care physician treat her hyperlipidemia. Although her triglycerides are elevated I do not think that that is the sole reason for her pancreatitis. (3) History of laparoscopic cholecystectomy: Onset Date: 06/20/22 Code(s): Z90.49 - Acquired absence of other specified parts of digestive tract Status: Acute Assessment and Plan: Cholecystectomy in June of this year. Gallbladder was intact. There were no stones seen which reduces the likelihood of her having choledocholithiasis (4) Insulin dependent type 2 diabetes mellitus: Code(s): E11.9 - Type 2 diabetes mellitus without complications; Z79.4 - watermaster (current) use of insulin Status: Acute Assessment and Plan: she has been on insulin for some time. Her weight fluctuates. She has not been able to lose any significant amount of weight Plan We will advance diet cautiously. I offered to give her full liquids this morning but she wants to hold off for couple of hours and see how she feels later this morning. Subjective Date/time seen: 03/18/23 08:40 She feels much better today. Pain is minimal. She is however for a to eat anymore. She is not particularly hungry and she recalls that when her diet was advanced to full liquids previously that her lipase jumped and the pain was exacerbated. She has no new complaints at this time we discussed the fact that her MRCP did not reveal any abnormalities of the ducts, pancreas divisum, or choledocholithiasis. Exam Const: General: cooperative and healthy appearing Nutritional Appearance: obese Orientation/consciousness: patient oriented x3 HENMT: Head: normal to inspection Ears: hearing grossly normal bilaterally Mouth: Yes Normal oral and palatal mucosa present Eyes: General: appearance normal, both eyes and all related structures Neck: Neck: normal visual inspection Chest: Chest palpation & inspection: normal inspection of the chest Resp: Effort & Inspection: normal respiratory effort Auscultation: clear to auscultation bilaterally Cardio: Rate: regular rate Rhythm: regular rhythm GI: Inspection: normal to inspection GI Palp: Yes Soft to palpation, Yes Tenderness to palpation present (GI) ( mild, upper abdomen), No Guarding due to palpation present (GI) and Yes No hepatosplenomegaly present Auscultation: normal bowel sounds Skin: General skin exam: normal color and no jaundice Neuro: General: patient oriented x3 Speech: normal speech Objective Data Vital Signs Vital Signs: Vital Signs - 24 hr 03/17/23 11:07 03/17/23 14:00 03/17/23 21:28 Temperature 37.0 C 36.7 C Pulse Rate 104 H 85 Respiratory Rate 16 14 Blood Pressure 124/77 115/71 Pulse Oximetry 99 93 Oxygen Delivery Room Air 03/18/23 06:00 Temperature 36.4 C Pulse Rate 81 Respiratory Rate 13 Blood Pressure 102/63 Pulse Oximetry 93 Oxygen Delivery Intake/Output Intake/Output: Intake & Output 03/15/23 03/16/23 03/17/23 03/18/23 23:59 23:59 23:59 23:59 Intake Total 4348 2980 3486 1000 Balance 4348 2980 3486 1000 Meds/Results Medications: Active Medications Generic Name Dose Route Start Last Admin Trade Name Freq PRN Reason Stop Dose Admin
[2023-03-18 08:58] LABS: Glucose Point of Care 169 mg/dl (65-105)
[2023-03-18] MEDS: PANTOPRAZOLE 40 MG TABLET PO (09:56)
[2023-03-18] MEDS: GABAPENTIN 300 MG CAPSULE 600 MG PO ×3 (09:56→17:25)
[2023-03-18 11:50] LABS: Glucose Point of Care 192 mg/dl (65-105)
[2023-03-18] MEDS: INSULIN ASPART (*BKC) 100 UNITS/ML 8 UNITS SUB-Q (12:41)
[2023-03-18 14:00] VITALS: BP 125/69; PULSE 92; RESP 16; TEMP 36.9; O2SAT 97
--- NOTE | 2023-03-18 14:32 | PM.IMPN ---
Progress Note: A&P Assessment and Plan (1) Acute on chronic pancreatitis: Code(s): K85.90 - Acute pancreatitis without necrosis or infection, unspecified; K86.1 - Other chronic pancreatitis Status: Acute (2) Insulin dependent type 2 diabetes mellitus: Code(s): E11.9 - Type 2 diabetes mellitus without complications; Z79.4 - [facility] (current) use of insulin Status: Acute (3) Elevated liver enzymes: Code(s): R74.8 - Abnormal levels of other serum enzymes Status: Acute Plan Problem List 1. Acute on chronic pancreatitis IVF con't, trial full liquids and advance as tolerated. Plan to d/c fluids trend lipase, down to 215 today GI consulted - no further intervention at this time trend LFTs, Held atorvastatin and fenofibrate, resume as appropriate. triglycerides - 340, previously elevated at 629 with downtrend to 213 in 12/2022 during last pancreatic flare. pain control with Fentanyl 50 mcg IV Q2H, transition to PO once able to tolerate. Home tramadol held. zofran, reglan prn for nausea CT abd/pelvis w con - acute on chronic interstitial pancreatitis, bilateral nonobstructing nephrolithiasis, IUD in place. MRCP not concerning for choledocholithiasis, pancreas divisum, or dilatation of ducts. 2. DM2, insulin dependent hypoglycemia protocol POC blood glucose ACHS Home medication resumed: Humalog (NovoLog subbed) 8 units t.i.d. WM and Lantus 30 units HS correct regimen ordered - low dose TIDWM and HS A1C - 10.3 Chronic Conditions - HLD: hold atorvastatin and fenofibrate, LFTs elevated. Resume as appropriate. - Continue home gabapentin, vitamin D2, pantoprazole - requested meds for constipation - start MiraLax daily and senna/docusate PRN daily Diet: clears GI Prophylaxis: continue home pantoprazole DVT Prophylaxis: SCDs, low risk - hold pharm Lines: pIV Code Status: Full Code Subjective Date/time seen: 03/18/23 14:32 Interval history: 38 YO female admitted for epigastric pain and chest tightness with PMH of asthma, dyslipidemia, GERD, HTN, dm2, psoriasis, kidney stones, and chronic pancreatitis. She had a cholecystectomy in June of this year, with no complications. She is now tolerating clear liquids and has not required pain medication as frequently. She is feeling better today and would like to start full liquids if her lipase has come down. This morning it was at 215 which is a large decrease. Will advance diet and see how she tolerates this afternoon. She is passing gas, but has not yet had a bowel movement today. Will d/c fluids if she is tolerating fluids consistently. GI following and does not think she needs any additional interventions at this time. Will plan to d/c tomorrow if tolerating some food intake and pain is improved. Review of Systems Review of Systems: All systems reviewed & are unremarkable except as noted in HPI and below Exam Narrative: General: Awake, alert and oriented. No acute distress. Well developed, hydrated and nourished. Appears stated age. Skin: Skin in warm, dry and intact without rashes or lesions. Eyes: Conjunctivae are clear without exudates or hemorrhage. EOM are intact, PERRLA. Nose: Nasal mucosa is pink and moist. The nasal septum is midline. Nares are patent bilaterally. Neck: The neck is supple without adenopathy. Trachea is midline. Thyroid gland is normal without masses. Cardiac: RRR. No murmurs, gallops, or rubs are auscultated. Respiratory: The chest wall is symmetric and without deformity. No signs of trauma. No signs of respiratory distress. Lung sounds clear in all lobes bilaterally without rales, ronchi, or wheezes. Abdominal: Abdomen is soft, tender to palpation. Bowel sounds are present and normoactive in all four quadrants. No masses, hepatomegaly, or splenomegaly are noted. Extremities: No swelling or erythema. Pulses palpable. Steady gait noted. Neurological: A&O x3 with normal speech
[2023-03-18 17:06] LABS: Glucose Point of Care 127 mg/dl (65-105)
[2023-03-18 20:22] LABS: Glucose Point of Care 227 mg/dl (65-105)
[2023-03-18] MEDS: INSULIN GLARGINE (*BKC) 100 UNITS/ML 30 UNITS SUB-Q (20:22)
[2023-03-18] MEDS: INSULIN ASPART (*BKC) 100 UNITS/ML SUB-Q (20:24)
[2023-03-18 21:52] VITALS: BP 118/76; PULSE 88; RESP 14; TEMP 36.8; O2SAT 100
[2023-03-19 05:50] VITALS: BP 123/71; PULSE 86; RESP 13; TEMP 36.6; O2SAT 100
[2023-03-19 07:42] LABS: Glucose Point of Care 139 mg/dl (65-105)
--- NOTE | 2023-03-19 07:48 | WPDGIPROGNO ---
Progress Note: A&P Assessment and Plan (1) Acute on chronic pancreatitis: Code(s): K85.90 - Acute pancreatitis without necrosis or infection, unspecified; K86.1 - Other chronic pancreatitis Status: Acute Assessment and Plan: etiology is uncertain. She had a cholecystectomy earlier this year thinking that would solve it. She has had 2 episodes of pancreatitis since then. Will obtain MRCP today to rule out choledocholithiasis. She may also have ampullary stenosis. At some point she may need ERCP. MRCP did not reveal choledocholithiasis, pancreas divisum, or dilatation of ducts. I do think that there is possibility she could have ampullary fibrosis. (2) Hypertriglyceridemia: Code(s): E78.1 - Pure hyperglyceridemia Status: Acute Assessment and Plan: Primary care physician treats her hyperlipidemia. Although her triglycerides are elevated I do not think that that is the sole reason for her pancreatitis. (3) History of laparoscopic cholecystectomy: Onset Date: 06/20/22 Code(s): Z90.49 - Acquired absence of other specified parts of digestive tract Status: Acute Assessment and Plan: Cholecystectomy in June of this year. Gallbladder was intact. There were no stones seen which reduces the likelihood of her having choledocholithiasis . (4) Insulin dependent type 2 diabetes mellitus: Code(s): E11.9 - Type 2 diabetes mellitus without complications; Z79.4 - [facility] (current) use of insulin Status: Acute Assessment and Plan: she has been on insulin for some time. Her weight fluctuates. She has not been able to lose any significant amount of weight Plan tolerated regular food last night. Will start her on pancreatic enzyme supplements with her low-fat diet. She should follow up with Dr. Johns in 2 weeks. May need ERCP To rule out or treat possible ampullary fibrosis. Subjective Date/time seen: 03/19/23 07:48 she tolerated full liquids yesterday afternoon and regular diet last night. Had regular food last night without difficulty. I told her that I agree that she should be able to go home today, assuming no problem eating breakfast. I would like her to take pancreatic enzyme supplement, Creon [id number] units with each meal for the next 2 weeks. Exam Const: General: cooperative and healthy appearing Nutritional Appearance: obese Orientation/consciousness: patient oriented x3 HENMT: Head: normal to inspection Ears: hearing grossly normal bilaterally Mouth: Yes Normal oral and palatal mucosa present Eyes: General: appearance normal, both eyes and all related structures Neck: Neck: normal visual inspection Chest: Chest palpation & inspection: normal inspection of the chest Resp: Effort & Inspection: normal respiratory effort Auscultation: clear to auscultation bilaterally Cardio: Rate: regular rate Rhythm: regular rhythm GI: Inspection: normal to inspection GI Palp: Yes Soft to palpation, Yes Tenderness to palpation present (GI) ( mild, upper abdomen), No Guarding due to palpation present (GI) and Yes No hepatosplenomegaly present Auscultation: normal bowel sounds Skin: General skin exam: normal color and no jaundice Neuro: General: patient oriented x3 Speech: normal speech Objective Data Vital Signs Vital Signs: Vital Signs - 24 hr 03/18/23 09:56 03/18/23 14:00 03/18/23 21:52 Temperature 36.9 C 36.8 C Pulse Rate 92 88 Respiratory Rate 16 14 Blood Pressure 125/69 118/76 Pulse Oximetry 97 100 Oxygen Delivery Room Air 03/19/23 05:50 Temperature 36.6 C Pulse Rate 86 Respiratory Rate 13 Blood Pressure 123/71 Pulse Oximetry 100 Oxygen Delivery Intake/Output Intake/Output: Intake & Output 03/16/23 03/17/23 03/18/23 03/19/23 23:59 23:59 23:59 23:59 Intake Total 2980 3486 3146 1000 Balance 2980 3486 3146 1000 Meds/Results Medications: Active Medications Generic Name Dose Ro
[2023-03-19 07:51] LABS: Hematocrit 39.2 % (37.0-47.0); Hemoglobin 12.4 g/dL (12.0-15.0); Mean Corpuscular HGB Conc 31.6 g/dl (32-36); Mean Corpuscular Hemoglobin 27.1 pg (26-34); Mean Corpuscular Volume 85.8 fl (80-100); Mean Platelet Volume 11.2 fl (7.4-10.4); Platelet Count Result 272 k/mm3 (150-375); Red Blood Count 4.57 M/mm3 (4.2-5.4); Red Cell Distribution Width 13.6 % (11.5-14.5); White Blood Count 8.7 K/mm3 (4.5-10.0)
[2023-03-19 08:00] LABS: Anion Gap 10 mmol/L (8-16); Blood Urea Nitrogen 7 mg/dL (7-17); Carbon Dioxide 30 mmol/L (22-30); Chloride 104 mmol/L (98-107); Estimated Glomerular Filt Rate > 60; Glucose 158 mg/dL (65-110); Lipase 215 U/L (23-300); Potassium 3.8 mmol/L (3.4-5.0); Sodium 144 mmol/L (137-145)
[2023-03-19] MEDS: LIPASE/AMYLASE/PROTEASE 12,000 UNITS CAP 3 CAP PO (08:43)
[2023-03-19] MEDS: PANTOPRAZOLE 40 MG TABLET PO (08:43)
[2023-03-19] MEDS: GABAPENTIN 300 MG CAPSULE 600 MG PO (08:43)
--- NOTE | 2023-03-19 10:36 | PM.DS ---
DS: Admitting Diagnosis Discharge Date 03/19/23 Admitting Diagnosis acute on chronic pancreatitis DS: Discharge Diagnosis Discharge Diagnosis (1) Acute on chronic pancreatitis: Code(s): K85.90 - Acute pancreatitis without necrosis or infection, unspecified; K86.1 - Other chronic pancreatitis Status: Acute (2) Insulin dependent type 2 diabetes mellitus: Code(s): E11.9 - Type 2 diabetes mellitus without complications; Z79.4 - prison (current) use of insulin Status: Acute (3) Elevated liver enzymes: Code(s): R74.8 - Abnormal levels of other serum enzymes Status: Acute Plan Problem List 1. Acute on chronic pancreatitis tolerating regular diet, discussed low fat diet until symptoms have completely resolved and she has f/u trend lipase remain 215 today GI consulted - f/u with Dr. Johns in 2 weeks CREON 3x times daily with meals for next [address] abd/pelvis w con - acute on chronic interstitial pancreatitis, bilateral nonobstructing nephrolithiasis, IUD in place. MRCP not concerning for choledocholithiasis, pancreas divisum, or dilatation of ducts. 2. DM2, insulin dependent A1C - 10.3 Home medication resumed Chronic Conditions - HLD: resume home medications - Continue home gabapentin, vitamin D2, pantoprazole - MiraLax PRN and senna/docusate PRN daily as needed for constipation DS: Summary Hospital Course Hospital Course: 38 YO female admitted for epigastric pain and chest tightness with PMH of asthma, dyslipidemia, GERD, HTN, dm2, psoriasis, kidney stones, and chronic pancreatitis. She had a cholecystectomy in June of this year, with no complications. She was admitted for IVF, pain control and monitoring of acute on chronic pancreatitis. She is now tolerating regular diet and has not required pain medication since yesterday. Lipase has stabilized at 215. She is passing gas, but has not yet had a bowel movement since , will continue PRN laxative and stool softener as needed for constipation. GI following and does not think she needs any additional interventions at this time, but will start on CREON 3x daily with meals and follow up with Dr. Johns in 2 weeks as there is concern for possible ampullary fibrosis and may need ERCP outpatient. Patient is ready to go home and stable for discharge today. Status at Discharge Functional status at discharge: independent ambulation Overall status at discharge: patient is progressing back to baseline Time Spent with Patient Time attestation: Total time spent providing and/or coordinating discharge services: Exam Narrative: General: Awake, alert and oriented. No acute distress. Well developed, hydrated and nourished. Appears stated age. Skin: Skin in warm, dry and intact without rashes or lesions. Eyes: Conjunctivae are clear without exudates or hemorrhage. EOM are intact, PERRLA. Nose: Nasal mucosa is pink and moist. The nasal septum is midline. Nares are patent bilaterally. Neck: The neck is supple without adenopathy. Trachea is midline. Thyroid gland is normal without masses. Cardiac: RRR. No murmurs, gallops, or rubs are auscultated. Respiratory: The chest wall is symmetric and without deformity. No signs of trauma. No signs of respiratory distress. Lung sounds clear in all lobes bilaterally without rales, ronchi, or wheezes. Abdominal: Abdomen is soft, tender to palpation. Bowel sounds are present and normoactive in all four quadrants. No masses, hepatomegaly, or splenomegaly are noted. Extremities: No swelling or erythema. Pulses palpable. Steady gait noted. Neurological: A&O x3 with normal speech.Cranial nerves are intact. Memory is normal and thought process is intact. No gait abnormalities are appreciated. Psychiatric: Appropriate mood and affect. Good judgement and insight. No visual or auditory hallucinations. No suicidal or homicidal ideation. DS: Data Data Completed and Pending Labs o
[2023-03-19 11:42] LABS: Glucose Point of Care 244 mg/dl (65-105)
--- NOTE | 2023-03-19 14:54 | PC.NURSE ---
Pt is A&O4 female who has participated and contributed in plan of care. Pt has reported pain off and on over the last 3 days. Pt has denied any pain today and is tolerating her diet well. Pt is discharging home with Creon. Pt was started on medication here and is tolerating well. Pt was educated on discharge orders. Pt verbalizes understanding. Pt was monitored for any changes in status while here.
== END 2023-03-19 13:30 | disposition home or self-care (01) | DRG 282 ==
LOC: ANHED 11:39 → ANH3MEDSUR 12:25
PROVIDERS: Internal Medicine Gastroenterology; Student in an Organized Health Care Education/Training Program; Admitting Provider Hospitalist; Emergency Provider Emergency Medicine; PCP Internal Medicine Gastroenterology; Visit Provider Nurse Practitioner
DX: K85.80 Other acute pancreatitis without necrosis or infection (principal); E11.42 Type 2 diabetes mellitus with diabetic polyneuropathy; E78.5 Hyperlipidemia, unspecified; I10 Essential (primary) hypertension; J45.909 Unspecified asthma, uncomplicated; K59.00 Constipation, unspecified; K21.9 Gastro-esophageal reflux disease without esophagitis; L40.9 Psoriasis, unspecified; N20.0 Calculus of kidney; R74.8 Abnormal levels of other serum enzymes; Z79.4 Long term (current) use of insulin; Z90.49 Acquired absence of other specified parts of digestive tract; Z89.422 Acquired absence of other left toe(s)
CPT/HCPCS: 36415; 71046; 74177; 74183; 76376; 80048; 80053; 80076; 81025; 82948; 83036; 83690; 84450; 84460; 84478; 84484; 85025; 85027; 85610; 85730; 93005; 96374; 96375; 99285; A9270; A9577; J1815; J1885; J2405; J2765; J3010; J7030; J7120; Q9967

== ENCOUNTER 2023-07-16 22:32 | Emergency (ER) | payer OTHER, SELFPAY ==
--- NOTE | ~2023-07-16 | CT_ITS ---
CT Facial Bones Clinical Indication: Right-sided abscess, pain Technique: Following intravenous administration of 75 cc of Omnipaque 350 contrast material, axial sc ans were obtained through the facial bones followed by coronal and sagittal reconstructions. Dose red uction technique was used on this scan by utilizing automated exposure control and iterative reconstr uction technique. The dose-length product (DLP) was 637.01 mGy-cm. Findings: No fractures are identified. The visualized paranasal sinuses are clear. Intraorbital soft tissues appear normal. There is mild right maxillary sinus disease. There is mild left sphenoid sinus disease. Remaining paranasal sinuses and mastoid air cells are clear. There is a 2.9 cm cystic mass in the anterior neck at the midline, just superficial to the apex of the thyroid cartilage, most like ly thyroglossal duct cyst. Probable small subperiosteal abscess along the right maxilla measuring approximately 2 cm in length b y 5 mm in thickness. Impression: Suspected small subperiosteal abscess along the right maxilla, as noted above. 2.9 cm probably thyroglossal duct cyst, as detailed above. Mild sinus disease, as above. Reviewed, dictated and finalized at location . Impression: Suspected small subperiosteal abscess along the right maxilla, as noted above. 2.9 cm probably thyroglossal duct cyst, as detailed above. Mild sinus disease, as above.
[2023-07-16 22:38] VITALS: BP 158/84; PULSE 106; RESP 14; TEMP 36.1; O2SAT 100
--- NOTE | 2023-07-17 01:24 | ED.DENTAL ---
HPI - Dental/Oral General Chief complaint: Dental/Oral <Emy Young PA-C - Last Filed: 07/19/23 09:23> Stated complaint: DENTAL ABCESS <Emy Young PA-C - Last Filed: 07/19/23 09:23> Time Seen by Provider: 07/17/23 01:00 <Emy Young PA-C - Last Filed: 07/19/23 09:23> Source: patient <Emy Young PA-C - Last Filed: 07/19/23 09:23> Mode of arrival: ambulatory <CONNER Lyons Last Filed: 07/19/23 09:23> Limitations: no limitations <Emy Young PA-C - Last Filed: 07/19/23 09:23> History of Present Illness HPI Narrative: This is a 38-year-old female that presents to the emergency department for dentalgia ongoing over the last week. Reports she was seen at urgent care and started on clindamycin. She has been on this for about 5 days without relief. Reports swelling around the area. Denies fevers or drainage. <Emy Young PA-C - Last Filed: 07/19/23 09:23> MD Complaint: tooth pain <CONNER Lyons Last Filed: 07/19/23 09:23> Location: Tooth # (5) <Emy Yuong PA-C - Last Filed: 07/19/23 09:23> Related Data Home medications: Home Medications Medication Instructions Recorded Confirmed gabapentin 600 mg tablet 600 mg PO TID 03/11/21 04/11/23 insulin glargine 100 unit/mL 30 unit subcut HS 06/24/21 04/11/23 subcutaneous solution (Lantus U-100 Insulin) insulin lispro 100 unit/mL 8 unit subcut TIDWMEAL 06/24/21 04/11/23 subcutaneous pen (Humalog KwikPen (U-100) Insulin) atorvastatin 20 mg tablet 20 mg PO HS 12/19/22 04/11/23 ergocalciferol (vitamin D2) 1,250 50,000 unit PO WEEKLY 12/19/22 04/11/23 mcg (50,000 unit) capsule <Emy Young PA-C - Last Filed: 07/19/23 09:23> Allergies/adverse reactions: Allergies Allergy/AdvReac Type Severity Reaction Status Date / Time No Known Allergies Allergy Unknown Verified 07/16/23 23:28 <Emy Young PA-C - Last Filed: 07/19/23 09:23> Review of Systems Review of Systems: CONSTITUTIONAL: Denies fever ENT: Reports dentalgia. <Emy Young PA-C - Last Filed: 07/19/23 09:23> All systems reviewed & are unremarkable except as noted in HPI and below <Emy Young PA-C - Last Filed: 07/19/23 09:23> [facility] Past Medical History Medical History: Medical History Asthma Chronic pancreatitis Diabetic neuropathy Dyslipidemia Gastroesophageal reflux disease Hepatic steatosis Hypertension Insulin dependent type 2 diabetes mellitus Kidney stones Osteomyelitis of ankle or foot, left, acute Psoriasis <Emy Young PA-C - Last Filed: 07/19/23 09:23> Surgical History Surgical History: Surgical History Amputation of toe of left foot (06/24/21) 4th toe History of laparoscopic cholecystectomy (06/20/22) History of tonsillectomy <Emy Young PA-C - Last Filed: 07/19/23 09:23> Family History Family History: Family History Grandparent Diabetes mellitus Father Diabetes mellitus Mother Hypertension Grandparent Diabetes mellitus Grandparent Diabetes mellitus <CONNER Lyons Last Filed: 07/19/23 09:23> Social History Social History: Social History Social History: Lives with Mother, significant other (bf), and children. Surrogate medical decision maker: Carlee River, mother. Code status: Full code. Smoking status: Never smoker Alcohol intake: former Alcohol use details: Rare alcohol use. Substance use: never Substance use type: prescription drug Lack of Transportation: No Lack of Food: Never True Current Housing: I Do Not Have Housing Concerned About Future Housing: No Difficulty Paying Gas/Electric Bills: No Difficulty Paying f
--- NOTE | 2023-07-17 01:33 | PC.NURSE ---
Pt in restroom at this time when attempting to obtain blood and start abx.
[2023-07-17] MEDS: AMPICILLIN SULB 3 GM/NS 100 ML 3 GM/100 ML VIAL IVPB (02:21)
[2023-07-17 02:30] LABS: Basophils Absolute Auto 0.1 K/mm3 (0.0-0.1); Basophils Percent Auto 0.5 % (0.2-1.2); Eosinophils Absolute Auto 0.4 K/mm3 (0-0.3); Eosinophils Percent Auto 3.9 % (0-4.4); Hematocrit 47.4 % (37.0-47.0); Hemoglobin 14.9 g/dL (12.0-15.0); Immature Granulocyte Absolute 0.06 K/mm3 (0.00-0.031); Immature Granulocyte Percent A 0.6 % (0-0.5); Lymphocytes Absolute Auto 3.97 K/mm3 (0.9-3.2); Lymphocytes Percent Auto 39.5 % (18.3-44.2); Mean Corpuscular HGB Conc 31.4 g/dl (32-36); Mean Corpuscular Hemoglobin 27.6 pg (26-34); Mean Corpuscular Volume 87.9 fl (80-100); Mean Platelet Volume 11.1 fl (7.4-10.4); Monocytes Absolute Auto 0.8 K/mm3 (0.1-0.6); Monocytes Percent Auto 8.2 % (2.6-8.5); Neutrophils Absolute Auto 4.8 K/mm3 (1.3-6.7); Neutrophils Percent Auto 47.3 % (45.5-73.1); Platelet Count Result 236 k/mm3 (150-375); Red Blood Count 5.39 M/mm3 (4.2-5.4); Red Cell Distribution Width 14.9 % (11.5-14.5); White Blood Count 10.1 K/mm3 (4.5-10.0)
[2023-07-17 02:48] LABS: Anion Gap 8 mmol/L (8-16); Blood Urea Nitrogen 17 mg/dL (7-17); CRP 6.2 mg/dL (<1.0); Calcium 10.6 mg/dL (8.4-10.2); Carbon Dioxide 22 mmol/L (22-30); Chloride 110 mmol/L (98-107); Estimated Glomerular Filt Rate > 60; Glucose 244 mg/dL (65-110); Potassium 4.9 mmol/L (3.4-5.0); Sodium 140 mmol/L (137-145)
[2023-07-17] MEDS: KETOROLAC 15 MG/ML VIAL (*BKC) IV PUSH (03:20)
[2023-07-17 03:36] LABS: Erythrocyte Sedimentation Rate 16 mm/hr (0-20)
[2023-07-17 03:37] VITALS: BP 142/81; PULSE 99; RESP 16; O2SAT 99
[2023-07-17 05:59] VITALS: BP 149/79; PULSE 100; RESP 17; O2SAT 99
== END 2023-07-17 06:07 | disposition home or self-care (01) ==
PROVIDERS: Emergency Provider Physician Assistant; PCP Internal Medicine Gastroenterology
DX: K04.7 Periapical abscess without sinus (principal); Q89.2 Congenital malformations of other endocrine glands; J45.909 Unspecified asthma, uncomplicated; I10 Essential (primary) hypertension; E11.40 Type 2 diabetes mellitus with diabetic neuropathy, unspecified; E78.5 Hyperlipidemia, unspecified; K86.1 Other chronic pancreatitis; K21.9 Gastro-esophageal reflux disease without esophagitis; L40.9 Psoriasis, unspecified; Z87.442 Personal history of urinary calculi; Z89.422 Acquired absence of other left toe(s); Z90.49 Acquired absence of other specified parts of digestive tract; J32.9 Chronic sinusitis, unspecified; Z79.4 Long term (current) use of insulin
CPT/HCPCS: 36415; 70487; 80048; 85025; 85652; 86140; 96365; 96375; 99284; J0295; J1885; Q9967

== ENCOUNTER 2023-08-10 16:54 | Emergency (ER) | payer OTHER, SELFPAY ==
--- NOTE | ~2023-08-10 | CT_ITS ---
EXAMINATION: CT abdomen pelvis wo con DATE: 08/10/2023 19:42 INDICATION: Low back pain and right flank pain. TECHNIQUE: Computed tomography (CT) of the abdomen and pelvis was performed without intravenous contr ast. Automated exposure control and iterative reconstruction technique were employed. The dose-length product was 1116.02 mGy-cm. COMPARISON: 03/14/2023 FINDINGS: Lung bases are clear. Heart size is normal. Atherosclerotic coronary artery calcification. No pericar dial or pleural effusion. Diffuse hepatic steatosis. Cholecystectomy clips the gallbladder fossa. Dys trophic calcification is at the head of the pancreas likely sequela of chronic pancreatitis. Spleen a nd bilateral adrenal glands are normal. Bilateral nephrolithiasis with 3 stones measuring up to 2 mm at the right kidney and one 2 mm stone at the left kidney. No ureteral stones or hydronephrosis. Blad betsy is normal. T-shaped IUD in expected position within the anteverted uterus. No significant change in a 3.6 similar right ovarian cyst.. Left adnexa is unremarkable. Bowels including the appendix are normal. No free intraperitoneal gas or fluid. No pathologically enlarged abdominal or pelvic lymphade nopathy. Mild lumbar levocurvature with mild to moderate spondylosis. IMPRESSION: 1. Bilateral nonobstructing nephrolithiasis. 2. Coarse parenchymal calcifications at the head of pancreas consistent with chronic pancreatitis. 3. IUD in expected position. . Reviewed, dictated and finalized at location A. IMPRESSION: 1. Bilateral nonobstructing nephrolithiasis. 2. Coarse parenchymal calcifications at the head of pancreas consistent with ch ronic pancreatitis. 3. IUD in expected position. .
[2023-08-10 17:00] VITALS: BP 151/90; PULSE 99; RESP 19; TEMP 36.4; O2SAT 99
--- NOTE | 2023-08-10 17:32 | ED.FEMALEGU ---
HPI - Female Genitourinary General Chief complaint: Urogenital-Female <Chastity Beckwith PA-C - Last Filed: 08/10/23 19:25> Stated complaint: UTI <CONNER Mercado Last Filed: 08/10/23 19:25> Time Seen by Provider: 08/10/23 17:32 <CONNER Mercado Last Filed: 08/10/23 19:25> Source: patient <CONNER Mercado Last Filed: 08/10/23 19:25> Mode of arrival: ambulatory <CONNER Mercado Last Filed: 08/10/23 19:25> Limitations: no limitations <CONNER Mercado Last Filed: 08/10/23 19:25> History of Present Illness HPI Narrative: Patient is a 38-year-old female who presents the ED with report of urinary symptoms. Patient reports having urinary frequency with small void urines, dysuria since yesterday. She is a diabetic and has history of frequent UTIs, reporting symptoms feel similar. States her blood sugars have been under control recently. Reports some hematuria, but notes she is also currently on her menstrual cycle. Reports intermittent lower abdominal pain, which may related to her cycle. Also reports having lower back pain, worse on the right side. Denies nausea, vomiting, fevers. <Chastity Beckwith PA-C - Last Filed: 08/10/23 19:25> Related Data Home medications: Home Medications Medication Instructions Recorded Confirmed gabapentin 600 mg tablet 600 mg PO TID 03/11/21 04/11/23 insulin glargine 100 unit/mL 30 unit subcut HS 06/24/21 04/11/23 subcutaneous solution (Lantus U-100 Insulin) insulin lispro 100 unit/mL 8 unit subcut TIDWMEAL 06/24/21 04/11/23 subcutaneous pen (Humalog KwikPen (U-100) Insulin) atorvastatin 20 mg tablet 20 mg PO HS 12/19/22 04/11/23 ergocalciferol (vitamin D2) 1,250 50,000 unit PO WEEKLY 12/19/22 04/11/23 mcg (50,000 unit) capsule <Chastity Beckwith PA-C - Last Filed: 08/10/23 19:25> Allergies/Adverse reactions: Allergies Allergy/AdvReac Type Severity Reaction Status Date / Time No Known Allergies Allergy Unknown Verified 07/16/23 23:28 <Chastity Beckwith PA-C - Last Filed: 08/10/23 19:25> Review of Systems Review of Systems: CONSTITUTIONAL: Denies fever, chills, or sweats. CARDIOVASCULAR: Denies chest pain RESPIRATORY: Denies dyspnea. GASTROINTESTINAL: See HPI. GENITOURINARY: See HPI. MUSCULOSKELETAL: See HPI. <Chastity Beckwith PA-C - Last Filed: 08/10/23 19:25> All systems reviewed & are unremarkable except as noted in HPI and below <Chastity Beckwith PA-C - Last Filed: 08/10/23 19:25> [facility] Past Medical History Medical History: Medical History Asthma Chronic pancreatitis Diabetic neuropathy Dyslipidemia Gastroesophageal reflux disease Hepatic steatosis Hypertension Insulin dependent type 2 diabetes mellitus Kidney stones Osteomyelitis of ankle or foot, left, acute Psoriasis <Chastity Beckwith PA-C - Last Filed: 08/10/23 19:25> Surgical History Surgical History: Surgical History Amputation of toe of left foot (06/24/21) 4th toe History of laparoscopic cholecystectomy (06/20/22) History of tonsillectomy <Chastity Beckwith PA-C - Last Filed: 08/10/23 19:25> Family History Family History: Family History Grandparent Diabetes mellitus Father Diabetes mellitus Mother Hypertension Grandparent Diabetes mellitus Grandparent Diabetes mellitus <Chastity Beckwith PA-C - Last Filed: 08/10/23 19:25> Social History Social History: Social History Social History: Lives with Mother, significant other (bf), and children. Surrogate medical decision maker: Carlee Aleta, mother. Code status: Full code. Smoking status: Never sm
[2023-08-10 18:02] LABS: Appearance Urine Turbid (Clear); Bacteria Urine 1+ /hpf; Bilirubin Urine Negative (Negative); Blood Urine 3+ (Negative); Color Urine Orange (Yellow); Glucose Urine UA 2+ mg/dL (Negative); Ketones Urine Trace mg/dL (Negative); Leukocyte Esterase Ur 1+ LEU/UL (Negative); Need Manual Microscopic Reviewed; Nitrate Urine Negative (Negative); Non Pathogenic Casts 0-2; Protein Urine 2+ mg/dL (Negative); RBC Urine >100 /hpf (0-2); Specific Grav Ur 1.021 (1.001-1.035); Squamous Epithelial Cell Urine Moderate /hpf (Few); Urobilinogen Urine 0.2 mg/dL (<2.0); WBC Urine 21-50 /hpf (0-3); pH Urine 5.5 (5.0-9.0)
[2023-08-10 18:09] LABS: Add Urine Microscopic? YES
[2023-08-10 18:36] LABS: Pregnancy On Board Control Positive; Urine Pregnancy Test Negative
[2023-08-10 19:05] VITALS: BP 141/88; PULSE 86; RESP 19; O2SAT 99
[2023-08-10 20:06] VITALS: BP 139/86; PULSE 81; RESP 17; TEMP 36.9; O2SAT 99
== END 2023-08-10 20:00 | disposition home or self-care (01) ==
LOC: ANHED 19:17
PROVIDERS: Emergency Medicine; Emergency Provider Physician Assistant; PCP Nurse Practitioner Family
DX: N30.01 Acute cystitis with hematuria (principal); J45.909 Unspecified asthma, uncomplicated; E11.40 Type 2 diabetes mellitus with diabetic neuropathy, unspecified; E78.5 Hyperlipidemia, unspecified; I10 Essential (primary) hypertension; K21.9 Gastro-esophageal reflux disease without esophagitis; L40.9 Psoriasis, unspecified; Z87.442 Personal history of urinary calculi; Z89.422 Acquired absence of other left toe(s); Z90.49 Acquired absence of other specified parts of digestive tract; Z79.4 Long term (current) use of insulin
CPT/HCPCS: 74176; 81001; 81025; 87086; 99284

== ENCOUNTER 2023-09-30 14:07 | Emergency (ER) | payer OTHER, SELFPAY ==
--- NOTE | ~2023-09-30 | CT_ITS ---
CT of the Abdomen and Pelvis: Indication: Abdominal pain, back pain Technique: 2.5 mm axial scans were obtained through the abdomen and pelvis following intravenous adm inistration of 100 cc of Omnipaque 350. Dose reduction technique was used on this scan by utilizing a utomated exposure control and iterative reconstruction technique. The dose-length product (DLP) was 9 86.24 mGy-cm. COMPARISON: 08/10/2023 Findings: Scans through the lung bases demonstrate minimal peripheral patchy groundglass opacities. There is diffuse hepatic steatosis. Cholecystectomy clips are present. The spleen, pancreas, adrenals and left kidney are within normal limits. There is a 2-3 mm stone at the right UVJ, without hydronep hrosis. There is an additional 2 mm nonobstructing right renal stone present. No evidence of aortic a neurysm. No lymphadenopathy. No bowel obstruction or bowel wall thickening. There is no evidence to suggest acute appendicitis. Images through the pelvis were performed. Urinary bladder unremarkable. IUD in place. 2.5 cm right ov sheree cyst present. No ascites. Impression: 2-3 mm right UVJ stone, without hydronephrosis. Additional 2 mm nonobstructing right renal stone. Diffuse hepatic steatosis. Minimal peripheral patchy ground glass opacities of the lung bases. Correlate for hypoventilatory riaz nge versus atypical infection including possibility of Covid. Reviewed, dictated and finalized at [facility]. Impression: 2-3 mm right UVJ stone, without hydronephrosis. Additional 2 mm nonobstructing right renal stone. Diffuse hepatic steatosis. Minimal peripheral patchy ground glass opacities of the lung bases. Correlate f or hypoventilatory change versus atypical infection including possibility of Co vid.
[2023-09-30 14:07] VITALS: BP 154/87; PULSE 101; RESP 16; TEMP 36.9; O2SAT 95
[2023-09-30 14:36] LABS: Appearance Urine Clear (Clear); Bacteria Urine None Seen /hpf; Bilirubin Urine Negative (Negative); Blood Urine Negative (Negative); Color Urine Yellow (Yellow); Glucose Urine UA 1+ mg/dL (Negative); Ketones Urine Negative (Negative); Leukocyte Esterase Ur Negative LEU/UL (Negative); Nitrate Urine Negative (Negative); Non Pathogenic Casts 0-2; Protein Urine 1+ mg/dL (Negative); RBC Urine 0-2 /hpf (0-2); Specific Grav Ur 1.019 (1.001-1.035); Squamous Epithelial Cell Urine Few /hpf (Few); Urobilinogen Urine 0.2 mg/dL (<2.0); WBC Urine 0-5 /hpf (0-3); pH Urine 5.5 (5.0-9.0)
[2023-09-30 14:40] LABS: Add Urine Microscopic? YES
--- NOTE | 2023-09-30 15:10 | PC.NURSE ---
PT DECLINES TO HAVE THIS RN DO A PERIPHERAL STICK. SHE IS REQUESTING THAT AN ULTRASOUND TRAINED RN START THE IV.
--- NOTE | 2023-09-30 15:16 | ED.BACK ---
HPI - Back Pain/Injury General Chief Complaint: Back Pain/Injury Stated Complaint: ?UTI sx Time Seen by Provider: 09/30/23 14:55 History of Present Illness HPI Narrative: Patient is a 38-year-old female who presents to the emergency department this afternoon complaining right lower quadrant abdominal pain and right flank pain. Patient states that she has had this pain ongoing for the past few months ever since she was diagnosed with a urinary tract infection. Patient states that she does have a history of recurrent urinary tract infections and although she was recently seen at an urgent care and was told that she does not have urinary tract infection, patient still believes that she has a UTI. Patient admits that she does also have a history of kidney stones and glued this could be due to a kidney stone. She denies any nausea or vomiting at home, denies any fevers, any chest pain or shortness of breath and denies any additional symptoms or concerns at this time. Related Data Home Medications Medication Instructions Recorded Confirmed gabapentin 600 mg tablet 600 mg PO TID 03/11/21 04/11/23 insulin glargine 100 unit/mL 30 unit subcut HS 06/24/21 04/11/23 subcutaneous solution (Lantus U-100 Insulin) insulin lispro 100 unit/mL 8 unit subcut TIDWMEAL 06/24/21 04/11/23 subcutaneous pen (Humalog KwikPen (U-100) Insulin) atorvastatin 20 mg tablet 20 mg PO HS 12/19/22 04/11/23 ergocalciferol (vitamin D2) 1,250 50,000 unit PO WEEKLY 12/19/22 04/11/23 mcg (50,000 unit) capsule Allergies Allergy/AdvReac Type Severity Reaction Status Date / Time No Known Allergies Allergy Unknown Verified 07/16/23 23:28 Review of Systems Review of Systems: All systems are reviewed and are negative unless stated otherwise in the HPI. [facility] Past Medical History Medical History Asthma Chronic pancreatitis Diabetic neuropathy Dyslipidemia Gastroesophageal reflux disease Hepatic steatosis Hypertension Insulin dependent type 2 diabetes mellitus Kidney stones Osteomyelitis of ankle or foot, left, acute Psoriasis Surgical History Surgical History Amputation of toe of left foot (06/24/21) 4th toe History of laparoscopic cholecystectomy (06/20/22) History of tonsillectomy Family History Family History Grandparent Diabetes mellitus Father Diabetes mellitus Mother Hypertension Grandparent Diabetes mellitus Grandparent Diabetes mellitus Social History Social History Social History: Lives with Mother, significant other (bf), and children. Surrogate medical decision maker: Carlee River, mother. Code status: Full code. Smoking status: Never smoker Alcohol intake: former Alcohol use details: Rare alcohol use. Substance use: never Substance use type: prescription drug Lack of Transportation: No Lack of Food: Never True Current Housing: I Do Not Have Housing Concerned About Future Housing: No Difficulty Paying Gas/Electric Bills: No Difficulty Paying for Meds: No Currently Unemployed: No Education: High School Diploma/GED Difficulty w/ Childcare or Family Care: No Living arrangements: with family Additional living arrangements comments: Lives in [place]. Two children at home. Spiritual care concerns: No Exam Narrative: General: Alert, awake, afebrile, in no acute distress. HEENT: PERRL, no rhinorrhea, no post nasal drip, oropharynx clear. Cardiovascular: Regular rate and rhythm, no murmurs, rubs or gallops, no peripheral edema. Respiratory: Clear to auscultation bilaterally, no tachypnea, no wheezing, no rhonchi, no rubs, no respiratory distress. Abdomen: Soft, nontender, nondistended, no rebound, no guarding, no peritoneal signs, positive CV
[2023-09-30] MEDS: ONDANSETRON INJ 4 MG/2 ML VIAL IV PUSH (15:39)
[2023-09-30] MEDS: KETOROLAC 15 MG/ML VIAL (*BKC) IV PUSH (15:39)
[2023-09-30 15:52] LABS: Basophils Absolute Auto 0.1 K/mm3 (0.0-0.1); Basophils Percent Auto 0.5 % (0.2-1.2); Eosinophils Absolute Auto 0.3 K/mm3 (0-0.3); Eosinophils Percent Auto 2.8 % (0-4.4); Hematocrit 40.4 % (37.0-47.0); Hemoglobin 13.4 g/dL (12.0-15.0); Immature Granulocyte Absolute 0.06 K/mm3 (0.00-0.031); Immature Granulocyte Percent A 0.6 % (0-0.5); Lymphocytes Absolute Auto 2.97 K/mm3 (0.9-3.2); Lymphocytes Percent Auto 27.5 % (18.3-44.2); Mean Corpuscular HGB Conc 33.2 g/dl (32-36); Mean Corpuscular Hemoglobin 28.4 pg (26-34); Mean Corpuscular Volume 85.6 fl (80-100); Mean Platelet Volume 11.3 fl (7.4-10.4); Monocytes Absolute Auto 0.7 K/mm3 (0.1-0.6); Monocytes Percent Auto 6.6 % (2.6-8.5); Neutrophils Absolute Auto 6.7 K/mm3 (1.3-6.7); Platelet Count Result 249 k/mm3 (150-375); Red Blood Count 4.72 M/mm3 (4.2-5.4); Red Cell Distribution Width 14.1 % (11.5-14.5); White Blood Count 10.8 K/mm3 (4.5-10.0)
[2023-09-30 16:05] LABS: Alanine Aminotransferase 48 U/L (6-35); Albumin Level 4.2 g/dL (3.5-5.1); Alkaline Phosphatase 87 U/L (38-126); Anion Gap 8 mmol/L (4-12); Aspartate Amino Transferase 75 U/L (14-36); Bilirubin,Total 0.4 mg/dL (0.2-1.3); Blood Urea Nitrogen 16 mg/dL (7-17); Calcium 9.5 mg/dL (8.4-10.2); Carbon Dioxide 24 mmol/L (22-30); Chloride 106 mmol/L (98-107); Estimated Glomerular Filt Rate > 60; Glucose 272 mg/dL (65-110); Lipase 147 U/L (23-300); Potassium 3.9 mmol/L (3.4-5.0); Sodium 138 mmol/L (137-145)
[2023-09-30] MEDS: MORPHINE SULFATE (*CRX) 4 MG/ML INJ IV PUSH (17:46)
== END 2023-09-30 18:20 | disposition home or self-care (01) ==
PROVIDERS: Emergency Provider Emergency Medicine; PCP Nurse Practitioner Family
DX: N20.2 Calculus of kidney with calculus of ureter (principal); I10 Essential (primary) hypertension; J45.909 Unspecified asthma, uncomplicated; E11.42 Type 2 diabetes mellitus with diabetic polyneuropathy; E78.5 Hyperlipidemia, unspecified; K86.1 Other chronic pancreatitis; K21.9 Gastro-esophageal reflux disease without esophagitis; L40.9 Psoriasis, unspecified; Z87.442 Personal history of urinary calculi; Z89.422 Acquired absence of other left toe(s); Z90.49 Acquired absence of other specified parts of digestive tract; Z79.4 Long term (current) use of insulin; Z79.899 Other long term (current) drug therapy; K76.0 Fatty (change of) liver, not elsewhere classified
CPT/HCPCS: 36415; 74177; 80053; 81001; 81025; 82248; 83690; 85025; 96374; 96375; 99284; J1885; J2270; J2405; Q9967

== ENCOUNTER 2023-10-03 01:23 | Inpatient (IN) | payer OTHER, SELFPAY ==
[2023-10-03] VITALS (33 sets, daily range): BP systolic 98–127; BP diastolic 43–81; PULSE 102–133; RESP 9–27; TEMP 36.3–37.1; O2SAT 91–100; BMI 43.9
--- NOTE | 2023-10-03 | ECHO_ITS ---
Patient Info Name: Gem Morales Age: 38 years : 1985 Gender: Female Ht: 59 in Wt: 224 lbs BSA: 2.12 m2 HR: 112 bpm BP: 102 / 65 mmHg Heart Rhythm: Sinus Rhythm, Tachycardia Technical Quality: Fair Exam Date: 10/03/2023 8:59 AM Exam Location: Echo Lab Patient Status: Inpatient Admit Date: 10/03/2023 Staff Ordering Physician: Gertrudis Farah DO Campus Dean: Patti Rausch RDCS Attending Provider: Tyrell Ojeda MD Referring Physician: Gagan FAGAN; Exam Type: CA echo doppler color flow Study Info Indications - Acute respiratory failure, elevated troponin Complete two-dimensional, color flow and Doppler transthoracic echocardiogram is performed with contrast to opacify the left ventricle and to improve the deliniation of the left ventricle endocardial borders. Contrast/Agitated Saline Contrast/Ag. Saline: Definity Amount: 2.00 ml Administered By: Patti Rausch RDCS Existing IV Access: Yes IV Access Condition: patent with no signs of infiltration Summary 1. Left ventricular chamber dimension is normal. 2. There is mildly increased left ventricular wall thickness. 3. Left ventricular systolic function is moderately reduced, estimated at 30-35%. 4. There is hypokinesis of the inferoseptum, mid inferior wall, mid anterior wall, mid anteroseptum, apex. 5. Left atrial chamber dimension is mildly enlarged. 6. There is mild tricuspid valve regurgitation. Left Ventricle There is hypokinesis of the inferoseptum, mid inferior wall, mid anterior wall, mid anteroseptum, apex. Left ventricular chamber dimension is normal. Left ventricular systolic function is moderately reduced, estimated at 30-35%. There is mildly increased left ventricular wall thickness. Right Ventricle Right ventricular chamber dimension is not well visualized. Left Atria Left atrial chamber dimension is mildly enlarged. Right Atria Right atrial chamber dimension is not well visualized. Atrial Septum Intact interatrial septum visualized by color flow imaging. Aortic Valve The aortic valve is probable trileaflet. There is no aortic valve stenosis. There is no aortic valve regurgitation. There is mild aortic valve calcification. Pulmonic Valve The pulmonic valve is not well visualized. Mitral Valve There is trace mitral valve regurgitation. The mitral valve annulus is mildly calcified. Tricuspid Valve There is mild tricuspid valve regurgitation. Pericardium/Pleural There is no pericardial effusion. Inferior Vena Cava Inferior vena cava is not well visualized. Aorta The aortic root size at the sinus of Valsalva is normal. Left Ventricular Outflow Tract Name Value Normal LVOT 2D LVOT Diameter 2.0 cm LVOT Doppler LVOT Peak Gradient 3 mmHg LVOT Mean Gradient 1 mmHg LVOT VTI 13 cm LVOT VTI/AV VTI Ratio 0.7 LVOT Stroke Volume 40 ml LVOT CO 4.2 l/min LVOT CI 2.0 l/min/m2 Pulmonic Valve
--- NOTE | ~2023-10-03 | XR_ITS ---
EXAMINATION: XR abdomen/kub 1V DATE: 10/04/2023 09:11 INDICATION: Ureteral stone. TECHNIQUE: A supine view of the abdomen on 2 radiographs was obtained. COMPARISON: CT abdomen and pelvis 10/03/2023 FINDINGS: There are no dilated loops of bowel. There is an intrauterine device in expected position. Surgical clips in the right upper quadrant are likely from cholecystectomy. There is a phlebolith in the pelvis. IMPRESSION: 1. No visible urolithiasis. Reviewed, dictated and finalized at location A. IMPRESSION: 1. No visible urolithiasis.
--- NOTE | ~2023-10-03 | XR_ITS ---
Portable chest x-ray Comparison: 10/03/2023 Clinical History: Dyspnea Findings: There is hazy perihilar/bibasilar airspace disease bilaterally, right worse than left. No definite pleural effusion. Cardiomediastinal silhouette is stable. Bones and soft tissues are unrema rkable. Impression: Mild to moderate central pulmonary edema pattern, asymmetrically worse in the right lung than the lef t. Correlate clinically for infection. Reviewed, dictated and finalized at location . Impression: Mild to moderate central pulmonary edema pattern, asymmetrically worse in the r ight lung than the left. Correlate clinically for infection.
--- NOTE | ~2023-10-03 | XR_ITS ---
Portable chest x-ray Comparison: 03/14/2023 Clinical History: Chest pain Findings: There is mild bibasilar pulmonary haziness. No pleural effusion or pneumothorax. Cardiome diastinal silhouette is stable. Bones and soft tissues are unremarkable. Impression: Probable mild bibasilar pulmonary edema versus atypical infection. Reviewed, dictated and finalized at [facility]. Impression: Probable mild bibasilar pulmonary edema versus atypical infection.
--- NOTE | ~2023-10-03 | XR_ITS ---
XR chest 1V portable 10/04/2023 08:26 Indication: Pulmonary edema. Procedure: AP portable chest Comparison: Comparison to multiple prior studies sequentially, with oldest reviewed study dated 03/09. Findings: Cardiomegaly with pulmonary edema. No change from 10/03/2023. No pleural effusion or pneumot horax. No acute osseous abnormality. Impression: 1: Cardiomegaly with pulmonary edema. Reviewed, dictated and finalized at location B. Impression: 1: Cardiomegaly with pulmonary edema.
--- NOTE | ~2023-10-03 | CT_ITS ---
EXAMINATION: CT brain wo con DATE: 10/04/2023 11:46 INDICATION: Encephalopathy. TECHNIQUE: Computed tomography (CT) of the head was performed without intravenous contrast. The mA wa s adjusted according to patient size. Iterative reconstruction technique was employed. The dose-lengt h product was 605.33 mGy-cm. COMPARISON: None FINDINGS: There is no intracranial hemorrhage, acute infarction, or abnormal intracranial mass lesion . The ventricles are normal in size. There is mild mucosal thickening in sphenoid sinus. The orbits a re normal. The mastoid air cells are normal. IMPRESSION: 1. Normal brain. Reviewed, dictated and finalized at location A. IMPRESSION: 1. Normal brain.
--- NOTE | ~2023-10-03 | CT_ITS ---
Clinical Indication: Hypoxia, abdominal pain CT Scan of the Chest, Abdomen, and Pelvis with Contrast: Technique: Contiguous sections were acquired throughout the chest, abdomen, and pelvis after intraven ous administration of 100 cc of Omnipaque 350. Dose reduction technique was used on this scan by uti lizing automated exposure control and iterative reconstruction technique. The dose-length product (DL P) was 1942.59 mGy-cm. COMPARISON: 09/30/2023 Findings: There is no evidence of any significant mediastinal, hilar or axillary lymphadenopathy. The mediastin al soft tissues appear normal. There is no evidence of pleural or pericardial effusion. There is patchy bilateral lower lobe consolidation with much more mild involvement in the right middl e lobe and inferior right upper lobe. The liver, spleen, and adrenal glands are within normal limits. Cholecystectomy clips are noted. 3 mm nonobstructing right renal stone noted. Punctate nonobstructing left renal stone noted. Focal pancre atic head calcifications are noted. No evidence of aortic aneurysm. No lymphadenopathy. No bowel obstruction or bowel wall thickening. There is no evidence to suggest acute appendicitis. There is a probable 2 mm stone at the right UVJ, without hydronephrosis. IUD in place. 2.8 cm right o varian cyst present. No ascites. Impression: Patchy bilateral lower lobe consolidation with more mild involvement in the right middle lobe and inf erior right upper lobe. Findings are compatible with multifocal pneumonia. Stable 2 mm right UVJ stone, without hydronephrosis. Additional tiny nonobstructing renal stones, as above. Reviewed, dictated and finalized at [facility]. Impression: Patchy bilateral lower lobe consolidation with more mild involvement in the rig ht middle lobe and inferior right upper lobe. Findings are compatible with mult ifocal pneumonia. Stable 2 mm right UVJ stone, without hydronephrosis. Additional tiny nonobstruc ting renal stones, as above.
--- NOTE | 2023-10-03 01:25 | ECG_ITS ---
SEE SCANNED COPY FOR CONFIRMED REPORT MTDD
--- NOTE | 2023-10-03 01:57 | ED.ABDPAIN ---
HPI - Abdominal Pain General Chief Complaint: Abdominal Pain <CONNER Saeed Last Filed: 10/03/23 03:55> Stated Complaint: kidney stones - here two days ago <CONNER Saeed Last Filed: 10/03/23 03:55> Time Seen by Provider: 10/03/23 01:38 <Yamilet Rojo PA-C - Last Filed: 10/03/23 03:55> History of Present Illness HPI narrative: 38-year-old female with a history of chronic pancreatitis, insulin-dependent type 2 diabetes, hypercholesterolemia, s/p cholecystectomy presents to the emergency department complaints of chest pain since this morning. Patient states she has had pancreatitis 3 times the past year next concern she has pancreatitis again. She reports nausea and multiple episodes of emesis as well as epigastric abdominal pain. Upon arrival patient's oxygen saturations were 76% on room air and heart rate was between 120 to 130s. She is placed on 10 L non-rebreather and is now satting 99% on room air. She was seen in our emergency department 3 days ago for right flank pain and right abdominal pain. She is found have a stone at the left UVJ. She states this pain is not changed or worsened. She has reported a cough. Denies shortness of breath, diarrhea, dysuria or hematuria. <Yamilet Rojo PA-C - Last Filed: 10/03/23 03:55> Related Data Home Medications: Home Medications Medication Instructions Recorded Confirmed gabapentin 600 mg tablet 600 mg PO TID 03/11/21 04/11/23 insulin glargine 100 unit/mL 30 unit subcut HS 06/24/21 04/11/23 subcutaneous solution (Lantus U-100 Insulin) insulin lispro 100 unit/mL 8 unit subcut TIDWMEAL 06/24/21 04/11/23 subcutaneous pen (Humalog KwikPen (U-100) Insulin) atorvastatin 20 mg tablet 20 mg PO HS 12/19/22 04/11/23 ergocalciferol (vitamin D2) 1,250 50,000 unit PO WEEKLY 12/19/22 04/11/23 mcg (50,000 unit) capsule <CONNER Saeed Last Filed: 10/03/23 03:55> Allergies/Adverse Reactions: Allergies Allergy/AdvReac Type Severity Reaction Status Date / Time No Known Allergies Allergy Unknown Verified 07/16/23 23:28 <Yamilet Rojo PA-C - Last Filed: 10/03/23 03:55> Review of Systems Review of Systems: CONSTITUTIONAL: Denies fever, chills, or sweats. EYES: Denies visual changes, redness, or discharge. ENT: Denies rhinorrhea, congestion, sore throat, or otalgia. CARDIOVASCULAR: See HPI RESPIRATORY: See HPI GASTROINTESTINAL: See HPI GENITOURINARY: Denies dysuria or hematuria. SKIN: Denies rash or itching. MUSCULOSKELETAL: Denies back pain, joint pain, or myalgia. NEUROLOGIC: Denies headache, numbness, dizziness, or weakness. PSYCHIATRIC: Denies anxiety or depression. <Yamilet Rojo PA-C - Last Filed: 10/03/23 03:55> [facility] Past Medical History Medical History: Medical History (Updated 10/03/23 @ 07:21 by Gertrudis Farah DO) Asthma Chronic pancreatitis Diabetic neuropathy Dyslipidemia Gastroesophageal reflux disease Hepatic steatosis With hepatomegaly Hypertension Hypertriglyceridemia Insulin dependent type 2 diabetes mellitus Poorly controlled with last A1c of 10.3 in 2022 Kidney stones Osteomyelitis of ankle or foot, left, acute (2020) Psoriasis <Yamilet Rojo PA-C - Last Filed: 10/03/23 03:55> Surgical History Surgical History: Surgical History (Updated 10/03/23 @ 07:21 by Gertrudis Farah DO) Amputation of toe of left foot (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
[2023-10-03 02:00] LABS: Basophils Absolute Auto 0.1 K/mm3 (0.0-0.1); Basophils Percent Auto 0.6 % (0.2-1.2); Eosinophils Percent Auto 0.2 % (0-4.4); Hematocrit 39.8 % (37.0-47.0); Hemoglobin 12.4 g/dL (12.0-15.0); Immature Granulocyte Absolute 0.14 K/mm3 (0.00-0.031); Immature Granulocyte Percent A 0.8 % (0-0.5); Lymphocytes Absolute Auto 1.72 K/mm3 (0.9-3.2); Lymphocytes Percent Auto 9.6 % (18.3-44.2); Mean Corpuscular HGB Conc 31.2 g/dl (32-36); Mean Corpuscular Hemoglobin 27.8 pg (26-34); Mean Corpuscular Volume 89.2 fl (80-100); Mean Platelet Volume 11.2 fl (7.4-10.4); Monocytes Absolute Auto 0.8 K/mm3 (0.1-0.6); Monocytes Percent Auto 4.7 % (2.6-8.5); Neutrophils Absolute Auto 15.2 K/mm3 (1.3-6.7); Neutrophils Percent Auto 84.1 % (45.5-73.1); Platelet Count Result 257 k/mm3 (150-375); Red Blood Count 4.46 M/mm3 (4.2-5.4); Red Cell Distribution Width 13.9 % (11.5-14.5)
[2023-10-03] MEDS: ONDANSETRON INJ 4 MG/2 ML VIAL IV PUSH (02:00)
[2023-10-03] MEDS: SODIUM CHLORIDE 0.9% IV 1,000 ML 999 ML IV CONT ×3 (02:00→04:02)
[2023-10-03] MEDS: ASPIRIN 81 MG CHEWABLE TABLET 324 MG PO (02:00)
[2023-10-03 02:15] LABS: Prothrombin Time 13.3 Seconds (11.1-14.7)
[2023-10-03 02:16] LABS: Partial Thromboplastin Time 24.8 Seconds (22.3-36.8)
[2023-10-03 02:19] LABS: Alanine Aminotransferase 35 U/L (6-35); Albumin Level 4.1 g/dL (3.5-5.1); Alkaline Phosphatase 82 U/L (38-126); Anion Gap 10 mmol/L (4-12); Aspartate Amino Transferase 37 U/L (14-36); Bilirubin,Total 0.5 mg/dL (0.2-1.3); Blood Urea Nitrogen 23 mg/dL (7-17); Calcium 9.6 mg/dL (8.4-10.2); Carbon Dioxide 20 mmol/L (22-30); Chloride 106 mmol/L (98-107); Estimated Glomerular Filt Rate > 60; Glucose 234 mg/dL (65-110); Lipase 103 U/L (23-300); Sodium 136 mmol/L (137-145)
[2023-10-03 02:36] LABS: Troponin I 0.481 ng/mL (0.000-0.034)
[2023-10-03 03:00] LABS: Lactic Acid Reflex 1.7 mmol/L (0.7-2.0)
[2023-10-03 03:30] LABS: Influenza A QL RT-PCR Negative (Negative); Influenza B QL RT-PCR Negative (Negative); RSV RNA, RT-PCR Negative (Negative); SARS-CoV-2 RNA PCR Negative (Negative)
--- NOTE | 2023-10-03 03:34 | ECG_ITS ---
SEE SCANNED COPY FOR CONFIRMED REPORT MTDD
--- NOTE | 2023-10-03 03:38 | PC.NURSE ---
this rn obtained 2nd set of blood cultres, and sent down to lab with kurin label in bag with specimen.
[2023-10-03] MEDS: PIPERACILLN/TAZ 3.375GM/NS50ML 3.375 GM/50 ML BAG IVPB (03:45)
[2023-10-03 04:06] LABS: Appearance Urine Clear (Clear); Bacteria Urine None Seen /hpf; Bilirubin Urine Negative (Negative); Blood Urine Trace (Negative); Color Urine Yellow (Yellow); Glucose Urine UA 2+ mg/dL (Negative); Ketones Urine Trace mg/dL (Negative); Leukocyte Esterase Ur Negative LEU/UL (Negative); Nitrate Urine Negative (Negative); Protein Urine 1+ mg/dL (Negative); RBC Urine 0-2 /hpf (0-2); Squamous Epithelial Cell Urine Occasional /hpf (Few); Urobilinogen Urine 0.2 mg/dL (<2.0); WBC Urine 0-5 /hpf (0-3)
[2023-10-03 04:08] LABS: Specific Grav Ur 1.046 (1.001-1.035)
[2023-10-03 04:09] LABS: Add Urine Microscopic? YES
[2023-10-03] MEDS: VANCOMYCIN 1,250 MG/NS 250 ML 1,250 MG/250 ML BAG 166.67 MG IVPB ×2 (04:19→05:56)
[2023-10-03] MEDS: FUROSEMIDE INJ 100 MG/10 ML VIAL 80 MG IV PUSH (04:44)
[2023-10-03 04:52] LABS: NT Pro B Type Natriuretic Pept 1700 pg/mL (19.9-100)
--- NOTE | 2023-10-03 04:54 | PC.NURSE ---
Verbal order read back from EDP Dr. Mcdonough to stop all normal saline bolus.
[2023-10-03 05:16] LABS: Alveolar/Arterial O2 Gradient 582.1 mmHg; Base Excess ABG -6.2 mEq/l (+/-2.0); Fractional Inspired Oxygen 100 %; HCO3 ABG 21.8 mEq/l (22.0-26.0); Oxygen Content ABG 17.5 %vol (16.0-22.0); Oxygen Saturation ABG 92.8 % (95.0-100.0); Oxyhemoglobin 92.8 % THb (90.0-100.0); PCO2 ABG 53.6 mmHg (35.0-45.0); PO2 ABG 77.3 mmHg (80.0-100.0); PO2 FiO2 Ratio Arterial Blood 0.77 %; Total Hemoglobin 13.4 g/dL (12.0-18.0)
[2023-10-03 05:18] LABS: Device NON-REBREATHER MASK; Modified Allen's Test Pass; Site Drawn RIGHT RADIAL; pH ABG 7.227 (7.350-7.450)
[2023-10-03] MEDS: HEPARIN SODIUM 5,000 UNITS/ML VIAL 4000 UNITS IV PUSH ×3 (05:31→19:28)
[2023-10-03] MEDS: HEPARIN SOD/D5W 100 UNITS/ML 25,000 UNITS/250 ML BAG 8 UNITS IV CONT (06:02)
--- NOTE | 2023-10-03 06:34 | PC.NURSE ---
Report received from SUSIE Montalvo.
--- NOTE | 2023-10-03 06:50 | PM.IMHP ---
H&P: HPI History of Present Illness Date/Time: 10/03/23 05:00 Chief Complaint: Chest pain Narrative: 38-year-old female with a complex past medical history including morbid obesity, chronic pancreatitis, kidney stones, poorly controlled insulin-dependent diabetes with complications, dyslipidemia, suspected obstructive sleep apnea and GERD who presented to the ER from home via EMS due to a chief complaint of chest pain but patient was found to be in overt respiratory distress. Patient presented to the ER 2 days ago for lower abdominal pain. She was found have a small 3 cm right UVJ stone. She was discharged on Flomax and [place]. She reports that despite the medications her pain in her lower abdomen remained as a 10/10 intensity. She reports that the abdominal pain is aching in nature and nonradiating. Then just prior to presentation she began having pain in her epigastric region which she is consistent with her chronic pancreatitis. She reports that she has been having some chest pressure on and off they will last for 10 minutes at a time for the last day or 2. It is usually accompanied by some diaphoresis. It was also substernal in nature in pressure-like. The pain was more intense than usual and was 10/10 in intensity. He was associated by some difficulty breathing. On scene the patient was noted to have sats of 76% on room air. She was placed on 10 L non-rebreather with oxygen improved to 100%. Accompanying the onset of the chest pain the patient became diaphoretic and nauseous. She had a couple of emesis 1st 1 of which was clear the 2nd 1 was yellow in nature. She denies any hematochezia or melena. She denies any significant lower extremity swelling. She has had decreased urine output. She has been having a nonproductive cough. She denies the pain being pleuritic in nature. She has had decreased appetite. Patient has CT scan done of her abdomen and pelvis 2 days ago for the kidney stone and also demonstrated basilar opacities concerning for atelectasis or pneumonia. Today when I went down to evaluate the patient she was having labored respirations and markedly tachycardic she was placed on BiPAP. Respiratory had just obtain an ABG before setting up the BiPAP. PH of 7.227 pCO2 of 53 PO2 of 77. His I was at bedside and adjusted BiPAP settings. The patient seemed to respond well to settings of 18/8 and and rate was increased to 24 to supports patient's respirations as she was already breathing 20 8 times a minute. After the patient had been on BiPAP for approximately 5 minutes the patient's respiratory rate decreased significantly down to between 18 and 20 with decreased accessory muscle use. Her heart rate had also improved down into low 100s. The patient was less diaphoretic after being placed on BiPAP. Patient had received approximately 2.5 L of fluid bolus out of her 30 mL/kilos that was ordered. And the patient seemed to become more distressed after the start of the 3 L of fluids in this was discontinued. A BMP was added to the patient's labs which demonstrated BNP of 1700. Repeat chest x-ray was performed which demonstrated worsening infiltrates compared to her prior x-ray and her CTA of the chest. CT of the chest was significant for pneumonia negative for pulmonary embolism. Patient's white count was up to 18. Has CTA had been performed to rule out pulmonary embolism which was negative for PE. Patient has been afebrile. The patient's troponin was elevated on presentation and continued to elevate. EKG did demonstrate sinus tachycardia with a rate in the 120s with some nonspecific T-wave changes and depressions in limb leads. Patient did have some Q-waves but does have history of Q-waves on prior EKGs. Unfortunately old EKGs are still not able to be visualized due to system white technical glitch. ER provider gave the patient 80 mg of IV Lasix prior to my evaluation. Given the patient's elevated troponins cardiology was contacted and re
[2023-10-03] MEDS: IPRATROPIUM BR 0.02% INH SOLN 0.5 MG/2.5 ML VIAL INHALATION ×3 (07:18→21:00)
[2023-10-03] MEDS: LEVALBUTEROL NEB 1.25 MG/3 ML 0.63 MG INHALATION ×3 (07:18→21:00)
[2023-10-03 07:44] LABS: Alveolar/Arterial O2 Gradient 152.3 mmHg; Base Excess ABG -3.5 mEq/l (+/-2.0); Device NON-INVASIVE VENT; Fractional Inspired Oxygen 40 %; HCO3 ABG 22.6 mEq/l (22.0-26.0); Modified Allen's Test Pass; Oxygen Content ABG 17.7 %vol (16.0-22.0); Oxygen Saturation ABG 95.2 % (95.0-100.0); Oxyhemoglobin 94.3 % THb (90.0-100.0); PCO2 ABG 44.7 mmHg (35.0-45.0); PO2 ABG 81.5 mmHg (80.0-100.0); PO2 FiO2 Ratio Arterial Blood 2.04 %; Site Drawn LEFT RADIAL; Total Hemoglobin 13.3 g/dL (12.0-18.0); pH ABG 7.322 (7.350-7.450)
[2023-10-03 07:45] LABS: Non-Invasive Expiratory Pressure 8 CMH2O; Non-Invasive Inspiratory Pressure 16 CMH2O; Non-Invasive Vent Rate 24 /MIN
--- NOTE | 2023-10-03 07:49 | PC.NURSE ---
[email or web address] Rao Redd Admission Note: The patient,Gem Morales,38 y/o, was given written information regarding hospital policies, unit procedures and contact persons. Patient's smoking status: Never smoker.
[2023-10-03] MEDS: CEFEPIME 2 GM/NS 50 ML 2 GM/50 ML BAG IVPB ×2 (08:25→16:52)
[2023-10-03] MEDS: AZITHROMYCIN 500 MG/NS 250 ML 500 MG/250 ML BAG 250 MG IVPB (08:26)
[2023-10-03 08:28] LABS: Procalcitonin 0.2 ng/mL
--- NOTE | 2023-10-03 08:28 | WPDCNINT ---
Assessment and Plan Assessment and plan (1) Acute respiratory failure with hypoxia and hypercapnia: Code(s): J96.01 - Acute respiratory failure with hypoxia; J96.02 - Acute respiratory failure with hypercapnia Status: Acute Assessment and Plan: 10/02 Patient presented with acute respiratory failure, O2 sats 76% on room air on arrival to the ED, patient was placed on 100% non-rebreather and then on a BiPAP. Initial ABG showed hypercapnic respiratory failure -repeat ABGs much improved on BiPAP, settings reviewed and adjusted -currently on 40% FiO2 -respiratory failure likely related to pneumonia, pulmonary edema and NSTEMI -continue BiPAP for now, -continue bronchodilators (2) Sepsis: Qualifiers: Sepsis type: sepsis due to unspecified organism Sepsis acute organ dysfunction status: with acute organ dysfunction Severe sepsis acute organ dysfunction type: acute respiratory failure Acute respiratory failure type: with hypoxia Severe sepsis shock status: without septic shock Qualified Code(s): A41.9 - Sepsis, unspecified organism; R65.20 - Severe sepsis without septic shock; J96.01 - Acute respiratory failure with hypoxia Code(s): A41.9 - Sepsis, unspecified organism Status: Acute Assessment and Plan: Patient presented with shortness of breath, tachycardia, elevated WBC count, bilateral infiltrates and consolidation on chest x-ray CTA chest. -likely source pneumonia -10/02: blood cultures have been ordered - patient started on vancomycin, cefepime and azithromycin (10/02) (3) Pneumonia: Qualifiers: Laterality: bilateral Lung location: unspecified part of lung Pneumonia type: due to unspecified organism Qualified Code(s): J18.9 - Pneumonia, unspecified organism Code(s): J18.9 - Pneumonia, unspecified organism Status: Acute Assessment and Plan: Patchy infiltrates bilaterally on chest CTA -antibiotics as above 10/03/2023: CTA chest abdomen and pelvis Impression: Patchy bilateral lower lobe consolidation with more mild involvement in the right middle lobe and inferior right upper lobe. Findings are compatible with multifocal pneumonia. Stable 2 mm right UVJ stone, without hydronephrosis. Additional tiny nonobstructing renal stones (4) Pulmonary edema: Qualifiers: Chronicity: acute Qualified Code(s): J81.0 - Acute pulmonary edema Code(s): J81.1 - Chronic pulmonary edema Status: Acute Assessment and Plan: Patient received 3 L IV fluid bolus in the ER for sepsis, after which she developed increasing respiratory distress, repeat chest x-ray showed pulmonary edema -patient was given Lasix 80 mg IV x1 in the ER with good urine output -currently on BiPAP -ABGs have improved, FiO2 is down to 40%. -continue to closely monitor (5) Non-ST elevation VT (NSTEMI): Code(s): I21.4 - Non-ST elevation (NSTEMI) myocardial infarction Status: Acute Assessment and Plan: Patient presented with chest pain, epigastric pain, nausea, vomiting, hypoxia, pulmonary edema -troponins are elevated 0.81--> 1.290--> 5.380. -EKG showed ST depressions, no acute ST-elevation, sinus tachycardia -cardiology has been consulted -patient was started on heparin infusion -ordered aspirin -echocardiogram has been ordered (6) Type 2 diabetes mellitus: Qualifiers: Diabetes mellitus fci insulin use: without fci use Diabetes mellitus complication status: with hyperglycemia Qualified Code(s): E11.65 - Type 2 diabetes mellitus with hyperglycemia Code(s): E11.9 - Type 2 diabetes mellitus without complications Status: Acute Assessment and Plan: Continue Accu-Cheks and sliding scale insulin -once patient starts eating will place her on her home Lantus (7) Hypercholesterolemia: Code(s): E78.00 - Pure hypercholesterolemia, unspecified Status: Acute Assessment and Plan: On a statin at home, carri
[2023-10-03 08:34] LABS: Glucose Point of Care 257 mg/dl (65-105)
[2023-10-03 08:43] LABS: Thyroid Stimulating Hormone Reflex 0.541 uIU/mL (0.465-4.68)
--- NOTE | 2023-10-03 08:43 | ECG_ITS ---
SEE SCANNED COPY FOR CONFIRMED REPORT MTDD
[2023-10-03] MEDS: INSULIN ASPART (*BKC) 100 UNITS/ML SUB-Q ×2 (09:29→12:12)
[2023-10-03] MEDS: PERFLUTREN LIPID MICROSPHERES 1.5 ML VIAL DILUTED TO 10 ML TOTAL VOLUME IV PUSH (09:39)
--- NOTE | 2023-10-03 09:57 | WPDURCON ---
Assessment and Plan Assessment and plan (1) Ureteral stone: Code(s): N20.1 - Calculus of ureter Status: Acute Assessment and Plan: Noted to have 2 mm right UVJ stone without hydronephrosis. Given lack of acute symptoms, normal renal function, lack of urinary symptoms, there is no indication for acute intervention of her nonobstructing stone. Continue flomax which was started on 09/30/23. Will obtain KUB to ensure stone is visible and plan for outpatient management if the stone does not pass spontaneously pending improvement of her respiratory status. Urology Consult Note HPI Date Seen: 10/03/23 Requesting Physician: Tyrell Ojeda MD Primary Care Provider: Chayito Sloan, RN TRANSPORT Consult Narrative Narrative: Gme Morales is a 38 year old female with a history of kidney stones who is currently admitted for acute respiratory failure. She is being seen in consultation for evaluation of a right ureteral stone. She was first evaluated on 09/30/23 for right flank pain and found to have a 2-3 mm right UVJ stone without hydronephrosis. Her UA and renal function were unremarkable and therefore she was discharged home with a course of tamsulosin and analgesics. She unfortunately returned to the ER early this morning with complaints of nausea, vomiting, epigastric pain. She was found to be in acute respiratory distress and was admitted to ICU. She had leukocytosis with WBC of 18.0. Creatinine within normal limits at 1.0. Lactic acid 1.7. UA with negative nitrites and leukocytes. CTA of chest/abd/pelvis showed an unchanged 2 mm right UVJ stone without hydronephrosis and punctate nonobstructing renal stones. At the time of my evaluation, she is resting comfortably, on BiPAP. She denies any abdominal pain, flank pain, back pain, nausea, vomiting, fever, chills. She states she has been voiding without difficulty and denies dysuria or hematuria. Review of Systems Review of Systems: All systems reviewed & are unremarkable except as noted in HPI and below PMFSH Past Medical History Medical History Asthma Chronic pancreatitis Diabetic neuropathy Dyslipidemia Gastroesophageal reflux disease Hepatic steatosis With hepatomegaly Hypertension Hypertriglyceridemia Insulin dependent type 2 diabetes mellitus Poorly controlled with last A1c of 10.3 in 2022 Kidney stones Osteomyelitis of ankle or foot, left, acute (2020) Psoriasis Surgical History Surgical History 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 Surrogate medical decision maker: Carlee River, mother. Code status: Full code. Smoking status: Never smoker Alcohol intake: never Alcohol use details: Rare alcohol use. Substance use: never Substance use type: prescription drug Do You Feel Safe in your Home?: Yes Lack of Transportation: No Lack of Food: Never True Current Housing: I Have Housing Concerned About Future Housing: No Difficulty Paying Gas/Electric Bills: No Difficulty Paying for Meds: No Currently Unemployed: No Education: High School Diploma/GED Difficulty w/ Childcare or Family Care: No Living arrangements: with family Additional living arrangements comments: Lives in [place]. Two children at home. Spiritual care concerns: No Meds Home Medications and Allergies Home Medications Medication Instructi
--- NOTE | 2023-10-03 10:14 | IVDEFINITY ---
Prior to administration of IV Definity the patient was educated on the risks and benefits of the imaging enhancing agent including potential adverse side effects. The patient verbalized understanding. Allergies were verified. No exclusion criteria were identified and at least one of the following inclusion criteria were met: 1) physician request, 2) patient technically difficult to image (per the [place] [employer]ocardi[employer] guidelines of two or more segments not discernable within the apical view), or 3) questionable left ventricular function. ?
--- NOTE | 2023-10-03 10:29 | PM.CNCAR ---
Assessment and Plan Assessment and plan (1) Non-ST elevation DC (NSTEMI): Code(s): I21.4 - Non-ST elevation (NSTEMI) myocardial infarction Status: Acute Assessment and Plan: Could be demand ischemia from acute respiratory failure, sepsis, pneumonia. However, cannot rule out acute coronary syndrome at this point. Does have risk factors for coronary disease, including uncontrolled diabetes, morbid obesity. Agree with Heparin drip. Echocardiogram pending. Continue to trend troponins until peak. Continue ASA 81mg once daily. Will increase Atorvastatin from 20mg to 80mg. Will need ischemic evaluation at some point -- timing to be determined by clincal course. (2) Acute respiratory failure with hypoxia and hypercapnia: Code(s): J96.01 - Acute respiratory failure with hypoxia; J96.02 - Acute respiratory failure with hypercapnia Status: Acute Assessment and Plan: Currently on BIPAP (3) Pneumonia: Qualifiers: Laterality: bilateral Lung location: unspecified part of lung Pneumonia type: due to unspecified organism Qualified Code(s): J18.9 - Pneumonia, unspecified organism Code(s): J18.9 - Pneumonia, unspecified organism Status: Acute Assessment and Plan: On antibiotics as per ICU team. (4) Sepsis: Qualifiers: Sepsis type: sepsis due to unspecified organism Sepsis acute organ dysfunction status: with acute organ dysfunction Severe sepsis acute organ dysfunction type: acute respiratory failure Acute respiratory failure type: with hypoxia Severe sepsis shock status: without septic shock Qualified Code(s): A41.9 - Sepsis, unspecified organism; R65.20 - Severe sepsis without septic shock; J96.01 - Acute respiratory failure with hypoxia Code(s): A41.9 - Sepsis, unspecified organism Status: Acute Assessment and Plan: On antibiotics as per ICU team. (5) Insulin dependent type 2 diabetes mellitus: Code(s): E11.9 - Type 2 diabetes mellitus without complications; Z79.4 - care home (current) use of insulin Status: Acute Assessment and Plan: Uncontrolled. Management as per primary team. (6) Ureteral stone: Code(s): N20.1 - Calculus of ureter Status: Acute Assessment and Plan: Does have flank pain. Urology has been consulted. Plan Recommendations and plan discussed with Asset Protection Greeter. History of Present Illness History of Present Illness Consult date/time: 10/03/23 10:29 Requesting physician: Harvinder Mcdonough DO Consult reason: Other (NSTEMI) Reason For Visit: Acute hypoxic hypercapnic respiratory failure requ Narrative: This is a 38 year old female with uncontrolled insulin-dependent diabetes, morbid obesity with BMI 44, chronic pancreatitis, kidney stones, hyperlipidemia who presented to the ED with chest pain, abdominal pain, nausea and vomiting. Given her abdominal pain, she was concerned she was having another episode of pancreatitis. Her chest pain is substernal and lasts for a few minutes.0 Patient was noted to be in acute hypoxic respiratory failure with oxygen saturations of 76% on room air. She was placed on 10L non-rebreather. WBC was 18. Patient meet sepsis criteria, and was started on broad-spectrum antibiotics, as well as fluids. Patient had worsening respiratory distress and was placed on BIPAP, which improved her respiratory status. Concern for fluid overload, therefore, she was given IV Lasix. Workup shows: WBC 18 A1c 9.0 Normal lactic acid of 1.7. Initial troponin of 0.481, followed by 5.380. NT pro BNP of 1700. Initial CXR with probable mild bibasilar pulmonary edema versus atypical infection. Repeat CXR with mild-moderate central pulmonary edema, asymmetrically worse in the right lung than the left CTA C/A/P with patchy bilateral lower lobe consolidation with more mild involvement in the right middle lobe and inferior right upper lobe. Findings are compatible with multifocal pneumonia.
[2023-10-03 10:32] LABS: Partial Thromboplastin Time 32.1 Seconds (22.3-36.8)
[2023-10-03 10:45] LABS: Cholesterol 162 mg/dL (0-200); HDL Direct 45 mg/dL; Triglycerides 257 mg/dL (<150)
[2023-10-03 10:55] LABS: LDL Cholesterol Direct 106 mg/dL
[2023-10-03 11:54] LABS: MRSA (PCR) DETECTED (NOT DETECTE)
[2023-10-03 12:13] LABS: Glucose Point of Care 229 mg/dl (65-105)
[2023-10-03 16:50] LABS: Glucose Point of Care 194 mg/dl (65-105)
--- NOTE | 2023-10-03 18:14 | PM.IMPN ---
Progress Note: A&P Assessment and Plan (1) Ureteral stone: Code(s): N20.1 - Calculus of ureter Status: Acute (2) Morbid obesity with BMI of 45.0-49.9, adult: Code(s): E66.01 - Morbid (severe) obesity due to excess calories; Z68.42 - Body mass index [BMI] 45.0-49.9, adult Status: Acute (3) Sepsis: Qualifiers: Sepsis type: sepsis due to unspecified organism Sepsis acute organ dysfunction status: with acute organ dysfunction Severe sepsis acute organ dysfunction type: acute respiratory failure Acute respiratory failure type: with hypoxia Severe sepsis shock status: without septic shock Qualified Code(s): A41.9 - Sepsis, unspecified organism; R65.20 - Severe sepsis without septic shock; J96.01 - Acute respiratory failure with hypoxia Code(s): A41.9 - Sepsis, unspecified organism Status: Acute (4) Acute respiratory failure with hypoxia and hypercapnia: Code(s): J96.01 - Acute respiratory failure with hypoxia; J96.02 - Acute respiratory failure with hypercapnia Status: Acute (5) Pulmonary edema: Qualifiers: Chronicity: acute Qualified Code(s): J81.0 - Acute pulmonary edema Code(s): J81.1 - Chronic pulmonary edema Status: Acute (6) Non-ST elevation [place] (NSTEMI): Code(s): I21.4 - Non-ST elevation (NSTEMI) myocardial infarction Status: Acute (7) Pneumonia: Qualifiers: Laterality: bilateral Lung location: unspecified part of lung Pneumonia type: due to unspecified organism Qualified Code(s): J18.9 - Pneumonia, unspecified organism Code(s): J18.9 - Pneumonia, unspecified organism Status: Acute (8) Heart failure: Qualifiers: Heart failure chronicity: unspecified Heart failure type: unspecified Qualified Code(s): I50.9 - Heart failure, unspecified Code(s): I50.9 - Heart failure, unspecified Status: Acute (9) Acute pancreatitis: Code(s): K85.90 - Acute pancreatitis without necrosis or infection, unspecified Status: Acute (10) Acute on chronic pancreatitis: Code(s): K85.90 - Acute pancreatitis without necrosis or infection, unspecified; K86.1 - Other chronic pancreatitis Status: Acute (11) Insulin dependent type 2 diabetes mellitus: Code(s): E11.9 - Type 2 diabetes mellitus without complications; Z79.4 - intermission coordinator (current) use of insulin Status: Acute (12) Elevated liver enzymes: Code(s): R74.8 - Abnormal levels of other serum enzymes Status: Acute (13) Nausea and vomiting in adult: Code(s): R11.2 - Nausea with vomiting, unspecified Status: Acute (14) Type 2 diabetes mellitus: Qualifiers: Diabetes mellitus alf insulin use: without rat exterminator use Diabetes mellitus complication status: with hyperglycemia Qualified Code(s): E11.65 - Type 2 diabetes mellitus with hyperglycemia Code(s): E11.9 - Type 2 diabetes mellitus without complications Status: Acute (15) Abnormal urinalysis: Code(s): R82.90 - Unspecified abnormal findings in urine Status: Acute (16) Hyponatremia: Code(s): E87.1 - Hypo-osmolality and hyponatremia Status: Acute (17) Hypercholesterolemia: Code(s): E78.00 - Pure hypercholesterolemia, unspecified Status: Acute Plan 10/03/2023 ... Plan on admission: The patient has acute hypoxic hypercapnic respiratory failure. The patient's respiratory failure is most likely due to underlying pneumonia but worsened after aggressive IV fluid resuscitation provided during sepsis treatment. Some of the hypercapnia is likely due to the patient's body habitus but she does also reported history of asthma. The patient has been started on antibiotic therapy with cefepime and vancomycin. Blood cultures have been obtained and are pending. Will place patient on scheduled nebulizer treatments with Xopenex and Atrovent. Will avoid albuterol due to the patient'
[2023-10-03] MEDS: MORPHINE SULFATE (*CRX) 2 MG/ML INJ IV PUSH ×2 (18:24→22:42)
[2023-10-03 18:54] LABS: Partial Thromboplastin Time 42.3 Seconds (22.3-36.8)
[2023-10-03] MEDS: ATORVASTATIN 40 MG TABLET 80 MG PO (20:52)
[2023-10-03] MEDS: VANCOMYCIN 1,500 MG/NS 500 ML 1,500 MG/500 ML BAG 250 MG IVPB (20:52)
[2023-10-03] MEDS: GABAPENTIN 300 MG CAPSULE 600 MG PO (20:52)
[2023-10-04] VITALS (26 sets, daily range): BP systolic 91–139; BP diastolic 55–94; PULSE 87–106; RESP 14–26; TEMP 36.4–36.8; O2SAT 92–99
[2023-10-04] MEDS: CEFEPIME 2 GM/NS 50 ML 2 GM/50 ML BAG IVPB ×3 (00:04→18:18)
[2023-10-04 00:16] LABS: Glucose Point of Care 248 mg/dl (65-105)
[2023-10-04] MEDS: INSULIN ASPART (*BKC) 100 UNITS/ML SUB-Q ×2 (00:19→04:25)
[2023-10-04 00:35] LABS: Partial Thromboplastin Time 60.2 Seconds (22.3-36.8)
[2023-10-04] MEDS: HEPARIN SOD/D5W 100 UNITS/ML 25,000 UNITS/250 ML BAG 15 UNITS IV CONT (00:43)
[2023-10-04] MEDS: HEPARIN SODIUM 5,000 UNITS/ML VIAL 2500 UNITS IV PUSH (00:44)
[2023-10-04] MEDS: IPRATROPIUM BR 0.02% INH SOLN 0.5 MG/2.5 ML VIAL INHALATION ×3 (01:15→14:15)
[2023-10-04] MEDS: LEVALBUTEROL NEB 1.25 MG/3 ML 0.63 MG INHALATION ×3 (01:16→14:15)
[2023-10-04] MEDS: MORPHINE SULFATE (*CRX) 2 MG/ML INJ IV PUSH ×3 (04:23→13:06)
[2023-10-04 04:26] LABS: Glucose Point of Care 204 mg/dl (65-105)
[2023-10-04 07:21] LABS: Basophils Absolute Auto 0.1 K/mm3 (0.0-0.1); Basophils Percent Auto 0.5 % (0.2-1.2); Eosinophils Absolute Auto 0.3 K/mm3 (0-0.3); Eosinophils Percent Auto 2.5 % (0-4.4); Hematocrit 35.7 % (37.0-47.0); Hemoglobin 11.4 g/dL (12.0-15.0); Immature Granulocyte Absolute 0.03 K/mm3 (0.00-0.031); Immature Granulocyte Percent A 0.3 % (0-0.5); Lymphocytes Absolute Auto 2.96 K/mm3 (0.9-3.2); Lymphocytes Percent Auto 26.9 % (18.3-44.2); Mean Corpuscular HGB Conc 31.9 g/dl (32-36); Mean Corpuscular Hemoglobin 28.4 pg (26-34); Mean Platelet Volume 10.9 fl (7.4-10.4); Monocytes Percent Auto 9.3 % (2.6-8.5); Neutrophils Absolute Auto 6.7 K/mm3 (1.3-6.7); Neutrophils Percent Auto 60.5 % (45.5-73.1); Platelet Count Result 185 k/mm3 (150-375); Red Blood Count 4.01 M/mm3 (4.2-5.4); Red Cell Distribution Width 14.3 % (11.5-14.5)
[2023-10-04 07:30] LABS: Partial Thromboplastin Time 80.7 Seconds (22.3-36.8)
[2023-10-04 07:32] LABS: Alanine Aminotransferase 34 U/L (6-35); Albumin Level 3.8 g/dL (3.5-5.1); Alkaline Phosphatase 80 U/L (38-126); Anion Gap 2 mmol/L (4-12); Aspartate Amino Transferase 72 U/L (14-36); Bilirubin,Total 0.5 mg/dL (0.2-1.3); Blood Urea Nitrogen 17 mg/dL (7-17); Calcium 8.4 mg/dL (8.4-10.2); Carbon Dioxide 31 mmol/L (22-30); Chloride 104 mmol/L (98-107); Estimated Glomerular Filt Rate > 60; Glucose 177 mg/dL (65-110); Magnesium 1.7 mg/dL (1.6-2.3); Phosphorus 2.4 mg/dL (2.5-4.5); Potassium 3.9 mmol/L (3.4-5.0); Sodium 137 mmol/L (137-145)
--- NOTE | 2023-10-04 08:44 | WPDINTPN ---
Progress Note: A&P Assessment and Plan (1) Acute respiratory failure with hypoxia and hypercapnia: Code(s): J96.01 - Acute respiratory failure with hypoxia; J96.02 - Acute respiratory failure with hypercapnia Status: Acute Assessment and Plan: 10/02 Patient presented with acute respiratory failure, O2 sats 76% on room air on arrival to the ED, patient was placed on 100% non-rebreather and then on a BiPAP. Initial ABG showed hypercapnic respiratory failure, chest x-ray showed pulmonary edema -repeat ABGs much improved on BiPAP, settings reviewed and adjusted -chest x-ray this morning: Cardiomegaly with pulmonary edema -respiratory failure likely related to pneumonia, pulmonary edema and NSTEMI -continue BiPAP for now, patient can be switched to nasal cannula -continue bronchodilators (2) Sepsis: Qualifiers: Sepsis type: sepsis due to unspecified organism Sepsis acute organ dysfunction status: with acute organ dysfunction Severe sepsis acute organ dysfunction type: acute respiratory failure Acute respiratory failure type: with hypoxia Severe sepsis shock status: without septic shock Qualified Code(s): A41.9 - Sepsis, unspecified organism; R65.20 - Severe sepsis without septic shock; J96.01 - Acute respiratory failure with hypoxia Code(s): A41.9 - Sepsis, unspecified organism Status: Acute Assessment and Plan: Patient presented with shortness of breath, tachycardia, tachypnea, elevated WBC count, bilateral infiltrates and consolidation on chest x-ray CTA chest. -likely source pneumonia, pulmonary edema -10/02: blood cultures have been ordered - patient started on vancomycin, cefepime and azithromycin (10/02) -WBC count trending down, continue to monitor (3) Pneumonia: Qualifiers: Laterality: bilateral Lung location: unspecified part of lung Pneumonia type: due to unspecified organism Qualified Code(s): J18.9 - Pneumonia, unspecified organism Code(s): J18.9 - Pneumonia, unspecified organism Status: Acute Assessment and Plan: Patchy infiltrates bilaterally on chest CTA -antibiotics as above 10/03/2023: CTA chest abdomen and pelvis Impression: Patchy bilateral lower lobe consolidation with more mild involvement in the right middle lobe and inferior right upper lobe. Findings are compatible with multifocal pneumonia. Stable 2 mm right UVJ stone, without hydronephrosis. Additional tiny nonobstructing renal stones (4) Pulmonary edema: Qualifiers: Chronicity: acute Qualified Code(s): J81.0 - Acute pulmonary edema Code(s): J81.1 - Chronic pulmonary edema Status: Acute Assessment and Plan: Patient received 3 L IV fluid bolus in the ER for sepsis, after which she developed increasing respiratory distress, repeat chest x-ray showed pulmonary edema -patient was given Lasix 80 mg IV x1 in the ER with good urine output -currently on BiPAP -ABGs have improved, FiO2 is down to 40%. -continue to closely monitor -will diurese again today (5) Non-ST elevation ID (NSTEMI): Code(s): I21.4 - Non-ST elevation (NSTEMI) myocardial infarction Status: Acute Assessment and Plan: Patient presented with chest pain, epigastric pain, nausea, vomiting, hypoxia, pulmonary edema -troponins are elevated 0.81--> 1.290--> 5.380-->8.640-->12.900 -EKG showed ST depressions, no acute ST-elevation, sinus tachycardia -appreciate cardiology evaluation recommendation, likely coronary angiogram today -on heparin infusion -continue aspirin and statin 10/03/2023: Echocardiogram Summary ? 1. Left ventricular chamber dimension is normal. ? 2. There is mildly increased left ventricular wall thickness. ? 3. Left ventricular systolic function is moderately reduced, estimated at 30-35%. ? 4. There is hypokinesis of the inferoseptum, mid inferior wall, mid anterior wall, mid anteroseptum, apex. ? 5. Left atrial chamber dimension is mildly enlarged. ?
--- NOTE | 2023-10-04 09:36 | PM.PNCARD ---
Progress Note: A&P Assessment and Plan (1) Non-ST elevation TN (NSTEMI): Code(s): I21.4 - Non-ST elevation (NSTEMI) myocardial infarction Status: Acute Assessment and Plan: Troponin peaked at 12.9. Echocardiogram shows LVEF 30-35% with hypokinesis of the inferoseptum, mid inferior wall, mid anterior wall, mid anteroseptum, apex. Risk factors for CAD include uncontrolled type 2 diabetes mellitus, morbid obesity and hyperlipidemia. Recommend cardiac catheterization given NSTEMI. Discussed the procedure with the patient, including indication for procedure, procedure details, risks vs benefits, alternative management options, etc. Patient is agreeable. Will plan for LHC today. Further recommendations/plan pending results of LHC. If patient does need stents, I am concerned about her compliance with DAPT therapy. (2) Cardiomyopathy: Qualifiers: Cardiomyopathy type: ischemic Qualified Code(s): I25.5 - Ischemic cardiomyopathy Code(s): I42.9 - Cardiomyopathy, unspecified Status: Acute Assessment and Plan: Echocardiogram shows LVEF 30-35%, which is a new diagnosis for cardiomyopathy for the patient. Will plan on C today for ischemic evaluation. Systolic blood pressures are in the 90s to low 100s. Will plan to start low-dose Toprol and see if she can tolerate this. Eventually add ARNI, Spironolactone, Jardiance if her blood pressures can tolerate. (3) Acute respiratory failure with hypoxia and hypercapnia: Code(s): J96.01 - Acute respiratory failure with hypoxia; J96.02 - Acute respiratory failure with hypercapnia Status: Acute Assessment and Plan: Improved with diuresis. Off of BIPAP now. (4) Pneumonia: Qualifiers: Laterality: bilateral Lung location: unspecified part of lung Pneumonia type: due to unspecified organism Qualified Code(s): J18.9 - Pneumonia, unspecified organism Code(s): J18.9 - Pneumonia, unspecified organism Status: Acute Assessment and Plan: On antibiotics as per ICU team. (5) Sepsis: Qualifiers: Sepsis type: sepsis due to unspecified organism Sepsis acute organ dysfunction status: with acute organ dysfunction Severe sepsis acute organ dysfunction type: acute respiratory failure Acute respiratory failure type: with hypoxia Severe sepsis shock status: without septic shock Qualified Code(s): A41.9 - Sepsis, unspecified organism; R65.20 - Severe sepsis without septic shock; J96.01 - Acute respiratory failure with hypoxia Code(s): A41.9 - Sepsis, unspecified organism Status: Acute Assessment and Plan: On antibiotics as per ICU team. (6) Insulin dependent type 2 diabetes mellitus: Code(s): E11.9 - Type 2 diabetes mellitus without complications; Z79.4 - nursing home (current) use of insulin Status: Acute Assessment and Plan: Uncontrolled. Management as per primary team. Recommend that patient be referred to Endocrinology as an outpatient. (7) Ureteral stone: Code(s): N20.1 - Calculus of ureter Status: Acute Assessment and Plan: Urology consulted. UVJ stone does not need intervention. Plan Recommendations and plan discussed with Hospitalist. Subjective Date/time seen: 10/04/23 09:36 Interval history: Reason for visit: NSTEMI, cardiomyopathy HPI: This is a 38 year old female with uncontrolled insulin-dependent diabetes, morbid obesity with BMI 44, chronic pancreatitis, kidney stones, hyperlipidemia who presented to the ED with chest pain, abdominal pain, nausea and vomiting. Given her abdominal pain, she was concerned she was having another episode of pancreatitis. Her chest pain is substernal and lasts for a few minutes.0 Patient was noted to be in acute hypoxic respiratory failure with oxygen saturations of 76% on room air. She was placed on 10L non-rebreather. WBC was 18. Patient meet sepsis criteria, and was started on broad-spectrum antibiotics,
[2023-10-04] MEDS: TAMSULOSIN HCL 0.4 MG CAPSULE PO (09:51)
[2023-10-04] MEDS: ASPIRIN 81 MG CHEWABLE TABLET PO (09:51)
[2023-10-04] MEDS: AZITHROMYCIN 500 MG/NS 250 ML 500 MG/250 ML BAG 250 MG IVPB (09:53)
--- NOTE | 2023-10-04 09:53 | WPDMODSED ---
Moderate Sedation Note-Pt Data Patient Data Diagnosis: NSTEMI Present Complaint: NSTEMI Procedure to be performed/Plan: Coronary angiography, left heart cath, +/- PCI Allergies Allergy/AdvReac Type Severity Reaction Status Date / Time No Known Allergies Allergy Unknown Verified 07/16/23 23:28 Home Medications Medication Instructions Recorded Confirmed Type gabapentin 600 mg tablet 600 mg PO TID 03/11/21 10/03/23 History insulin glargine 100 unit/mL 30 unit subcut HS 06/24/21 10/03/23 History subcutaneous solution (Lantus U-100 Insulin) insulin lispro 100 unit/mL 8 unit subcut TIDWMEAL 06/24/21 10/03/23 History subcutaneous pen (Humalog KwikPen (U-100) Insulin) atorvastatin 20 mg tablet 20 mg PO HS 12/19/22 10/03/23 History ergocalciferol (vitamin D2) 1,250 50,000 unit PO WEEKLY 12/19/22 10/03/23 History mcg (50,000 unit) capsule [id number] 2 cap PO TIDWM #180 caps 04/11/23 10/03/23 Rx 12,000-38,000-60,000 unit capsule,delayed rel (Creon) hydrocodone 5 mg-acetaminophen 325 1 tablet PO Q8H PRN pain #10 tabs 09/30/23 10/03/23 Rx mg tablet ibuprofen 400 mg tablet 400 mg PO Q6H PRN pain #14 tabs 09/30/23 10/03/23 Rx ondansetron 4 mg disintegrating 4 mg PO Q8H PRN nausea and 09/30/23 10/03/23 Rx tablet vomiting #10 tabs tamsulosin 0.4 mg capsule (Flomax) 0.4 mg PO DAILY #10 caps 09/30/23 10/03/23 Rx Current Medications: Active Medications Aspirin (Aspirin 81 Mg Chewable Tablet) 81 mg PO DAILY@0800 [facility] Last Admin: 10/04/23 07:21 Dose: Not Given Atorvastatin Calcium (Atorvastatin 40 Mg Tablet) 80 mg PO HS [facility] Last Admin: 10/03/23 20:52 Dose: 80 mg Dextrose (Dextrose 50% 25 Gm/50 Ml Syringe) 12.5 gm IV PUSH PRN PRN; Protocol PRN Reason: Hypoglycemia Gabapentin (Gabapentin 300 Mg Capsule) 600 mg PO Q8HR [facility] Last Admin: 10/04/23 04:24 Dose: Not Given Glucagon (Glucagon For Inj 1 Mg Vial) 1 mg IM PRN PRN; Protocol PRN Reason: Hypoglycemia Glucose (Glucose Oral Gel 15 Gm Of Glucse In 37.5 Gm Tube) 15 gm PO PRN PRN; Protocol PRN Reason: Hypoglycemia Heparin Sodium (Porcine) (Heparin Sodium 5,000 Units/Ml Vial) 4,000 units IV PUSH PRN PRN PRN Reason: aPTT less than 55 seconds Last Admin: 10/03/23 19:28 Dose: 4,000 units Heparin Sodium (Porcine) (Heparin Sodium 5,000 Units/Ml Vial) 2,500 units IV PUSH PRN PRN PRN Reason: aPTT 55 - 70 seconds Last Admin: 10/04/23 00:44 Dose: 2,500 units Vancomycin HCl (Vancomycin 1,500 Mg/Ns 500 Ml) 1,500 mg in 500 mls @ 250 mls/hr IVPB Q18H [facility] Last Infusion: 10/03/23 23:00 Dose: Infused Heparin Sodium/Dextrose (Heparin Sodium/D5w 100 Units/Ml) 25,000 units in 250 mls @ 15 mls/hr IV CONT .[id number] [facility]; Protocol Last Titration: 10/04/23 06:03 Dose: 1,500 units/hr, 15 mls/hr Dextrose (Dextrose 5% 1,000 Ml) 1,000 mls @ 100 mls/hr IVPB PRN PRN; Protocol PRN Reason: Hypoglycemia Cefepime HCl (Maxipime 2 Gm/Ns 50 Ml) 2 gm in 50 mls @ 100 mls/hr IVPB Q8H [facility] Last Infusion: 10/04/23 00:39 Dose: Infused Azithromycin (Zithromax) 500 mg in 250 mls @ 250 mls/hr IVPB Q24H [facility] Last Infusion: 10/03/23 09:26 Dose: Infused Insulin Aspart (Insulin Aspart (*Bkc) 100 Units/Ml) 4 - 8 units SUB-Q Q6HR [facility]; Protocol Last Admin: 10/04/23 04:25 Dose: 4 units Ipratropium [place] (Ipratropium Br 0.02% Inh Soln 0.5 Mg/2.5 Ml Vial) 0.5 mg INHALATION Q6HRT [facility] Last Admin: 10/04/23 08:35 Dose: 0.5 mg Levalbuterol HCl (Levalbuterol Neb 1.25 Mg/3 Ml) 0.63 mg INHALATION Q6HRT [facility] Last Admin: 10/04/23 08:35 Dose: 0.63 mg Metoprolol Succinate (Metoprolol Succinate Ext Rel 25 Mg Tabcr) 25 mg PO QAM [facility] Morphine Sulfate (Morphine Sulfate (*Crx) 2 Mg/Ml Inj) 2 mg IV PUSH Q4H PRN PRN Reason: Pain Rated 7-10 Last Admin: 10/04/23 07:55 Dose: 2 mg Tamsulosin HCl (Tamsulosin Hcl 0.4 Mg Capsule) 0.4 mg PO QAM [facility] Sedation/Anesthesia: No previous sedation/anesthesia problems (including family history). [facility]
[2023-10-04] MEDS: FUROSEMIDE INJ 40 MG/4 ML VIAL IV PUSH (09:54)
--- NOTE | 2023-10-04 10:51 | WPDCARDPROC ---
Cardiac Cath Procedure Note Date of procedure:: 10/04/23 Performing physician:: CATHETERIZATION LABORATORY REPORT Procedure Date: 10/04/2023 Matrix Bath Attendant: Johan Rogel M.D., [facility]? Referring Physician: Johan Rogel M.D. ? Anesthesia: Versed and Fentanyl were ordered and given in my presence at 10:22, procedure ended at 10:43. Supervision of nurse monitored moderate sedation with Versed and Fentanyl was provided for 21 minutes. Total of Versed 1mg and Fentanyl 50mcg were administered by the Administrative Assistant Coordinator RN Sindhu Torres. Pre-op Diagnosis: NSTEMI Post-op Diagnosis: 1. Significant obstructive two-vessel coronary artery disease involving LAD and left-dominant anomalous LCX. 2. 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 3. Severely elevated left ventricular end-diastolic pressure of 42mmHg. Procedure(s): 1. Moderate sedation 2. Ultrasound-guided access of the right radial artery 3. Coronary angiography 4. Left heart catheterization Access Site: Right radial artery Brief History and Clinical Indications: Patient is a 38 year old female with uncontrolled insulin-dependent diabetes, morbid obesity, hyperlipidemia who is referred for [facility] for NSTEMI. All risks, benefits and alternatives to left heart catheterization with or without percutaneous coronary intervention was discussed at length with the patient. Risk of complications including but not limited to bleeding, infection, arrhythmia, stroke, worsening kidney function, blood loss, groin hematoma, limb loss, emergency coronary artery bypass grafting, and even were discussed with the patient and all questions were answered. The patient understood and wished to proceed. Time out called, patient name, date of , medical record number, allergies, procedure performed, identify Matrix Bath Attendant, patient and staff member concurred with accurate data, procedure carried on. Findings: LEFT HEART CATHETERIZATION FINDINGS: 1. Left main: There is no left main. 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 2. Left anterior descending: The mid portion of the LAD has an 80% stenosis. The first diagonal branch is a very small caliber branch with 90-99% ostial disease. The mid-distal LAD has a 70% stenosis. 3. 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 The left circumflex artery is the dominant vessel. The mid portion of the LCX right after the bifurcation of OM has a 70% stenosis. The mid-distal portion of the OM has an angiographic moderate appearing stenosis. 4. Right coronary artery: The RCA has luminal irregularities without any significant obstructive angiographic disease. The RCA is the non-dominant vessel. 5. Left ventricle: A. End-diastolic pressure 42 mmHg. B. LV gram deferred. C. No significant gradient across aortic valve on catheter pullback. Description of Procedure: Informed consent signed and placed in the chart. Patient transferred to biology laboratory assistant room. Prepped and draped in usual sterile fashion. 2% lidocaine injected subcutaneously in right wrist area. 22-gauge venipuncture catheter used to access the right radial artery under ultrasound guidance. 6-FR slender sheath placed in right radial artery. Nitroglycerine and Verapamil were given intraarterial through the sheath. Versacore wire advanced under fluoroscopy 5F Tig 4 diagnostic catheter engaged LCX. 5F Tig 4 diagnostic catheter engaged Right Coronary Artery. 5F Tig 4 diagnostic catheter engaged in LAD. Multiple orthogonal angiogram obtained and reviewed 5F Pigtail diagnostic catheter crossed aortic valve to obtain LVEDP, LV angiogram deferred. Hemostasis was achieved by application of TR band. Post Operative Condition: Stable No significant blood loss Disposition: ICU Plan: The patient will be monitored in the recovery area
[2023-10-04 11:24] LABS: Glucose Point of Care 196 mg/dl (65-105)
[2023-10-04] MEDS: GABAPENTIN 300 MG CAPSULE 600 MG PO (13:06)
--- NOTE | 2023-10-04 13:30 | WPDUROPN2 ---
Progress Note: A&P Assessment and Plan (1) Ureteral stone: Code(s): N20.1 - Calculus of ureter Status: Acute Assessment and Plan: Noted to have 2 mm right UVJ stone without hydronephrosis. Given lack of acute symptoms and normal renal function, there is no indication for acute intervention of her nonobstructing stone. Continue flomax which was started on 09/30/23. No stone visible on KUB so she may have passed it. She continues to be asymptomatic. Will plan for follow up CT as an outpatient following resolution of her acute issues. No need for further inpatient evaluation unless she were to become septic or develop severe symptoms. Plan Urology will sign off at this time. Please call with any questions or concerns. Subjective Subjective Date/Time Seen: 10/04/23 13:30 Interval history: Feeling well today. No acute events overnight. She denies any flank pain, back pain, abdominal pain, or suprapubic pain. Denies dysuria or hematuria. She has no additional concerns. Review of Systems Review of Systems: All systems reviewed & are unremarkable except as noted in HPI and below Exam Narrative: General: Awake, alert, lying supine in bed, no acute distress HEENT: Normocephalic, atraumatic, sclerae anicteric Respiratory: normal respiratory effort, on supplemental oxygen Abdomen: Nondistended, soft, nontender Skin: Normal coloration, warm and dry Neurologic: No focal neuro deficits noted Psychiatric: Appropriate mood and affect, judgment and insight intact Objective Data Vital Signs Vital Signs: Vital Signs - 24 hr 10/03/23 13:38 10/03/23 13:38 10/03/23 13:51 Temperature Pulse Rate 104 H 104 H Respiratory Rate 16 16 Blood Pressure Pulse Oximetry 100 95 Oxygen Delivery BiPAP BiPAP Oxygen Flow Rate Fraction of Inspired Oxygen 30 10/03/23 13:51 10/03/23 14:00 10/03/23 14:00 Temperature 97.8 F Pulse Rate 102 H 105 H 105 H Respiratory Rate 15 14 Blood Pressure 100/74 Pulse Oximetry 94 Oxygen Delivery Oxygen Flow Rate Fraction of Inspired Oxygen 10/03/23 16:34 10/03/23 16:00 10/03/23 16:00 Temperature Pulse Rate 102 H 102 H 102 H Respiratory Rate 16 16 Blood Pressure Pulse Oximetry 98 98 Oxygen Delivery BiPAP BiPAP Oxygen Flow Rate Fraction of Inspired Oxygen 30 10/03/23 16:00 10/03/23 18:00 10/03/23 18:00 Temperature 98.7 F 97.3 F L Pulse Rate 102 H 103 H 102 H Respiratory Rate 13 14 Blood Pressure 116/80 105/75 Pulse Oximetry 99 93 Oxygen Delivery Oxygen Flow Rate Fraction of Inspired Oxygen 10/03/23 20:00 10/03/23 20:00 10/03/23 20:00 Temperature 97.9 F Pulse Rate 106 H 106 H 105 H Respiratory Rate 17 17 Blood Pressure 122/77 Pulse Oximetry 98 100 Oxygen Delivery Nasal Cannula Oxygen Flow Rate 4 Fraction of Inspired Oxygen 10/03/23 22:00 10/03/23 22:00 10/03/23 21:01 Temperature Pulse Rate 103 H 102 H 112 H Respiratory Rate 13 18 Blood Pressure 116/62 Pulse Oximetry 98 Oxygen Delivery Oxygen Flow Rate Fraction of Inspired Oxygen 10/03/23 22:00 10/03/23 21:22 10/03/23 23:53 Temperature Pulse Rate 112 H 114 H 103 H Respiratory Rate 17 18 19 Blood Pressure Pulse Oximetry 98 93 Oxygen Delivery BiPAP BiPAP Oxygen Flow Rate Fraction of Inspired Oxygen 30 10/04/23 00:00 10/04/23 00:00 10/04/23 01:16 Temperature 97.7 F Pulse Rate 98 104 H 97 Respiratory Rate 16 14 Blood Pressure 118/77 Pulse Oximetry 97 Oxygen Delivery Oxygen Flow Rate Fraction of Inspired Oxygen 10/04/23 01:16 10/04/23 01:28 10/04/23 02:00 Temperature Pulse Rate 99 99 93 Respiratory Rate 15 15 Blood Pressure Pulse Oximetry 95 Oxygen Delivery BiPAP Oxygen Flow Rate Fraction of Inspired Oxygen 10/04/23 02:00 10/04/23 03:00 10/04/23 03:20 Temperature Pulse Rate 90 94 94 Respiratory Rate 16 15 15 Blood Pressure 91/55 L 1
[2023-10-04 15:33] LABS: Vancomycin Trough 9.4 ug/mL (10.0-20.0)
[2023-10-04] MEDS: VANCOMYCIN 1,750 MG/NS 500 ML 1,750 MG/500 ML BAG 250 MG IVPB (16:02)
--- NOTE | 2023-10-04 18:37 | PM.IMPN ---
Progress Note: A&P Assessment and Plan (1) Ureteral stone: Code(s): N20.1 - Calculus of ureter Status: Acute (2) Morbid obesity with BMI of 45.0-49.9, adult: Code(s): E66.01 - Morbid (severe) obesity due to excess calories; Z68.42 - Body mass index [BMI] 45.0-49.9, adult Status: Acute (3) Sepsis: Qualifiers: Sepsis type: sepsis due to unspecified organism Sepsis acute organ dysfunction status: with acute organ dysfunction Severe sepsis acute organ dysfunction type: acute respiratory failure Acute respiratory failure type: with hypoxia Severe sepsis shock status: without septic shock Qualified Code(s): A41.9 - Sepsis, unspecified organism; R65.20 - Severe sepsis without septic shock; J96.01 - Acute respiratory failure with hypoxia Code(s): A41.9 - Sepsis, unspecified organism Status: Acute (4) Acute respiratory failure with hypoxia and hypercapnia: Code(s): J96.01 - Acute respiratory failure with hypoxia; J96.02 - Acute respiratory failure with hypercapnia Status: Acute (5) Pulmonary edema: Qualifiers: Chronicity: acute Qualified Code(s): J81.0 - Acute pulmonary edema Code(s): J81.1 - Chronic pulmonary edema Status: Acute (6) Non-ST elevation [place] (NSTEMI): Code(s): I21.4 - Non-ST elevation (NSTEMI) myocardial infarction Status: Acute (7) Pneumonia: Qualifiers: Laterality: bilateral Lung location: unspecified part of lung Pneumonia type: due to unspecified organism Qualified Code(s): J18.9 - Pneumonia, unspecified organism Code(s): J18.9 - Pneumonia, unspecified organism Status: Acute (8) Heart failure: Qualifiers: Heart failure chronicity: unspecified Heart failure type: unspecified Qualified Code(s): I50.9 - Heart failure, unspecified Code(s): I50.9 - Heart failure, unspecified Status: Acute (9) Acute pancreatitis: Code(s): K85.90 - Acute pancreatitis without necrosis or infection, unspecified Status: Acute (10) Acute on chronic pancreatitis: Code(s): K85.90 - Acute pancreatitis without necrosis or infection, unspecified; K86.1 - Other chronic pancreatitis Status: Acute (11) Insulin dependent type 2 diabetes mellitus: Code(s): E11.9 - Type 2 diabetes mellitus without complications; Z79.4 - bed bug exterminator (current) use of insulin Status: Acute (12) Elevated liver enzymes: Code(s): R74.8 - Abnormal levels of other serum enzymes Status: Acute (13) Nausea and vomiting in adult: Code(s): R11.2 - Nausea with vomiting, unspecified Status: Acute (14) Type 2 diabetes mellitus: Qualifiers: Diabetes mellitus longterm insulin use: without emt intermediate use Diabetes mellitus complication status: with hyperglycemia Qualified Code(s): E11.65 - Type 2 diabetes mellitus with hyperglycemia Code(s): E11.9 - Type 2 diabetes mellitus without complications Status: Acute (15) Abnormal urinalysis: Code(s): R82.90 - Unspecified abnormal findings in urine Status: Acute (16) Hyponatremia: Code(s): E87.1 - Hypo-osmolality and hyponatremia Status: Acute (17) Hypercholesterolemia: Code(s): E78.00 - Pure hypercholesterolemia, unspecified Status: Acute Plan 10/03/2023 ... Plan on admission: The patient has acute hypoxic hypercapnic respiratory failure. The patient's respiratory failure is most likely due to underlying pneumonia but worsened after aggressive IV fluid resuscitation provided during sepsis treatment. Some of the hypercapnia is likely due to the patient's body habitus but she does also reported history of asthma. The patient has been started on antibiotic therapy with cefepime and vancomycin. Blood cultures have been obtained and are pending. Will place patient on scheduled nebulizer treatments with Xopenex and Atrovent. Will avoid albuterol due to the patient'
--- NOTE | 2023-10-05 13:10 | PM.TDS ---
Transfer Discharge Sum: Prov Provider Date of admission: 10/03/23 05:51 Primary care physician: Chayito Sloan, FAMILY DEVELOPMENT EXTENSION SPECIALIST Admitting clinician: Gertrudis Farah DO Attending physician on admission: Gertrudis Farah Consults: 10/03/23 05:52 Consult to Physician Routine Comment: Consulting Provider: Luis Galeas Reason for consultation: NSTEMI Has provider been notified: Yes Consult to Physician Routine Comment: Consulting Provider: Mike Thompson Reason for consultation: Respiratory failure requiring NIPPV Has provider been notified: Yes 10/03/23 09:27 Consult to Physician Routine Comment: spoke with Agustina Peres @0930(,) Consulting Provider: Agustina Peres psychologist/MD group to consult: Urology Reason for consultation: Ureteral stone Has provider been notified: Yes Attending physician on discharge: Tyrell Ojeda Discharging clinician: Tyrell Ojeda Anticipated date of transfer: 10/04/23 Receiving physician/facility: [facility] DS: Admitting Diagnosis Discharge Date 10/04/23 Admitting Diagnosis (1) Acute respiratory failure with hypoxia and hypercapnia: ?Code(s): J96.01 - Acute respiratory failure with hypoxia; J96.02 - Acute respiratory failure with hypercapnia ?Status:?Acute (2) Sepsis: ?Qualifiers: ?Sepsis type:?sepsis due to unspecified organism??Sepsis acute organ dysfunction status:?with acute organ dysfunction??Severe sepsis acute organ dysfunction type:?acute respiratory failure??Acute respiratory failure type:?with hypoxia??Severe sepsis shock status:?without septic shock? Qualified Code(s):?A41.9 - Sepsis, unspecified organism; R65.20 - Severe sepsis without septic shock; J96.01 - Acute respiratory failure with hypoxia ?Code(s): A41.9 - Sepsis, unspecified organism ?Status:?Acute (3) Non-ST elevation [place] (NSTEMI): ?Code(s): I21.4 - Non-ST elevation (NSTEMI) myocardial infarction ?Status:?Acute (4) Pulmonary edema: ?Qualifiers: ?Chronicity:?acute? Qualified Code(s):?J81.0 - Acute pulmonary edema ?Code(s): J81.1 - Chronic pulmonary edema ?Status:?Acute (5) Pneumonia: ?Qualifiers: ?Laterality:?bilateral??Lung location:?unspecified part of lung??Pneumonia type:?due to unspecified organism? Qualified Code(s):?J18.9 - Pneumonia, unspecified organism ?Code(s): J18.9 - Pneumonia, unspecified organism ?Status:?Acute (6) Morbid obesity with BMI of 45.0-49.9, adult: ?Code(s): E66.01 - Morbid (severe) obesity due to excess calories; Z68.42 - Body mass index [BMI] 45.0-49.9, adult ?Status:?Acute DS: Discharge Diagnosis Discharge Diagnosis (1) Multiple vessel coronary artery disease: Code(s): I25.10 - Atherosclerotic heart disease of [place] coronary artery without angina pectoris Status: Acute (2) Cardiomyopathy: Qualifiers: Cardiomyopathy type: ischemic Qualified Code(s): I25.5 - Ischemic cardiomyopathy Code(s): I42.9 - Cardiomyopathy, unspecified Status: Acute (3) Ureteral stone: Code(s): N20.1 - Calculus of ureter Status: Acute (4) Morbid obesity with BMI of 45.0-49.9, adult: Code(s): E66.01 - Morbid (severe) obesity due to excess calories; Z68.42 - Body mass index [BMI] 45.0-49.9, adult Status: Acute (5) Sepsis: Qualifiers: Sepsis type: sepsis due to unspecified organism Sepsis acute organ dysfunction status: with acute organ dysfunction Severe sepsis acute organ dysfunction type: acute respiratory failure Acute respiratory failure type: with hypoxia Severe sepsis shock status: without septic shock Qualified Code(s): A41.9 - Sepsis, unspecified organism; R65.20 - Severe sepsis without septic shock; J96.01 - Acute respiratory failure with hypoxia Code(s): A41.9 - Sepsis, unspecified organism Status: Acute (6) Acute respiratory failure with hypoxia and hypercapnia:
== END 2023-10-04 20:00 | disposition short-term general hospital (02) | DRG 720 ==
LOC: ANHED 05:52 → ANHICU 07:27
PROVIDERS: Internal Medicine; Student in an Organized Health Care Education/Training Program; Admitting Provider Internal Medicine; Emergency Provider Physician Assistant; PCP Nurse Practitioner Family; Visit Provider Family Medicine
PROC: 4A023N7 Measurement of Cardiac Sampling and Pressure, Left Heart, Percutaneous Approach (ICD-10-PCS; CPT 93452; principal; 2023-10-04 10:00)
DX: A41.9 Sepsis, unspecified organism (principal); J96.01 Acute respiratory failure with hypoxia; J96.02 Acute respiratory failure with hypercapnia; I21.4 Non-ST elevation (NSTEMI) myocardial infarction; J18.9 Pneumonia, unspecified organism; R65.20 Severe sepsis without septic shock; I25.10 Atherosclerotic heart disease of native coronary artery without angina pectoris; I11.0 Hypertensive heart disease with heart failure; I50.9 Heart failure, unspecified; I42.9 Cardiomyopathy, unspecified; E87.1 Hypo-osmolality and hyponatremia; E11.40 Type 2 diabetes mellitus with diabetic neuropathy, unspecified; E11.65 Type 2 diabetes mellitus with hyperglycemia; E78.5 Hyperlipidemia, unspecified; E78.00 Pure hypercholesterolemia, unspecified; E66.01 Morbid (severe) obesity due to excess calories; E78.1 Pure hyperglyceridemia; K21.9 Gastro-esophageal reflux disease without esophagitis; K86.1 Other chronic pancreatitis; K76.0 Fatty (change of) liver, not elsewhere classified; N20.2 Calculus of kidney with calculus of ureter; Z20.822 Contact with and (suspected) exposure to COVID-19; Z79.4 Long term (current) use of insulin; Z87.442 Personal history of urinary calculi; Z89.422 Acquired absence of other left toe(s); Z68.41 Body mass index [BMI] 40.0-44.9, adult
CPT/HCPCS: 36415; 36600; 70450; 71045; 71275; 74018; 74177; 80053; 80061; 80202; 81001; 82805; 82948; 83036; 83605; 83690; 83735; 83880; 84100; 84145; 84443; 84484; 85025; 85610; 85730; 87040; 87637; 87641; 93005; 93458; 94003; 94640; 96361; 96365; 96366; 96367; 96375; 99291; A9270; C1769; C1887; C1894; C8929; J0456; J0692; J1644; J1815; J1940; J2250; J2270; J2305; J2405; J2543; J3010; J3370; J7030; Q9957; Q9967

== ENCOUNTER 2024-03-30 17:28 | Emergency (ER) | payer OTHER, SELFPAY ==
--- NOTE | ~2024-03-30 | XR_ITS ---
XR chest 2V DATE: 03/30/2024 17:59 INDICATION: Productive cough, pneumonia. History of asthma. TECHNIQUE: PA and lateral chest COMPARISON: 10/04/2023 portable AP chest FINDINGS: Status post sternotomy and coronary artery bypass graft surgery. Heart size is within normal limits. No hilar or mediastinal enlargement is evident. No pulmonary infiltrate or consolidation, pleural effusion or pulmonary vascular congestion or pneumo thorax is noted. Status post cholecystectomy. IMPRESSION: No active cardiac pulmonary disease Status post CABG Reviewed, dictated and finalized at location A. CELL ENGINEER
[2024-03-30 17:33] VITALS: BP 147/85; PULSE 106; RESP 18; TEMP 36.8; O2SAT 99
--- NOTE | 2024-03-30 17:40 | ED_ITS ---
HPI - General Adult General Chief complaint: Recheck/Abnormal Lab/Rx Stated complaint: pneumonia not improving Time Seen by Provider: 03/30/24 17:40 Source: patient History of Present Illness HPI narrative: 39 years old white female came to the ED complaining of not feeling well, still coughing, had a recent diagnosis of community-acquired pneumonia 4 days ago after having chest xr started on Augmentin and doxycycline. Plus albuterol inhaler. She denies any fever, chills, nausea, vomiting, chest pain or shortness of breath. Related Data Home Medications Medication Instructions Recorded Confirmed gabapentin 600 mg tablet 600 mg PO TID 03/11/21 10/03/23 insulin glargine 100 unit/mL 30 unit subcut HS 06/24/21 10/03/23 subcutaneous solution (Lantus U-100 Insulin) insulin lispro 100 unit/mL 8 unit subcut TIDWMEAL 06/24/21 10/03/23 subcutaneous pen (Humalog KwikPen (U-100) Insulin) atorvastatin 20 mg tablet 20 mg PO HS 12/19/22 10/03/23 ergocalciferol (vitamin D2) 1,250 50,000 unit PO WEEKLY 12/19/22 10/03/23 mcg (50,000 unit) capsule Allergies Allergy/AdvReac Type Severity Reaction Status Date / Time No Known Allergies Allergy Unknown Verified 03/30/24 17:35 Review of Systems Review of Systems: All systems reviewed & are unremarkable except as noted in HPI and below PMFSH Past Medical History Medical History Asthma Chronic pancreatitis Diabetic neuropathy Dyslipidemia Gastroesophageal reflux disease Hepatic steatosis With hepatomegaly Hypertension Hypertriglyceridemia Insulin dependent type 2 diabetes mellitus Poorly controlled with last A1c of 10.3 in 2022 Kidney stones Osteomyelitis of ankle or foot, left, acute (2020) Psoriasis Surgical History Surgical History 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 Surrogate medical decision maker: Carlee [place], mother. Code status: Full code. Smoking status: Never smoker Alcohol intake: never Alcohol use details: Rare alcohol use. Substance use: never Substance use type: prescription drug Do You Feel Safe in your Home?: Yes Lack of Transportation: No Lack of Food: Never True Current Housing: I Have Housing Concerned About Future Housing: No Difficulty Paying Gas/Electric Bills: No Difficulty Paying for Meds: No Currently Unemployed: No Education: High School Diploma/GED Difficulty w/ Childcare or Family Care: No Living arrangements: with family Additional living arrangements comments: Lives in [place]. Two children at home. Spiritual care concerns: No Exam Narrative: General appearance: Well-developed, well-nourished Skin: Normal color Neck: Supple, nontender Chest and respiratory: Airway patent, no respiratory distress, no accessory muscle use Heart: Regular rate/rhythm Abdomen: Soft, nontender, no organomegaly, quiet bowel sounds Vascular: Normal peripheral pulses, normal capillary refill. Neurologic: Alert and oriented ?3, PHD INTERN is normal as tested, no gross motor deficit Course Vital Signs Vital signs: Vital Signs Temperature 36.8 C 03/30/24 17:33 Pulse Rate 106 H 03/30/24 17:33 Respiratory Rate 18 03/30/24 17:33 Blood Pressure 147/85 H 03/30/24 17:33 Pulse Oximetry 99 03/30/24 17:33 Oxygen Delivery Room Air 03/30/24 17:33 Temperature 36.7 C 03/30/24 17:42 Pulse Rate 99 03/30/24 17:42 Respiratory Rate 16 03/30/24 17:42 Blood Pressure 151/98 H 03/30/24 17:42 Pulse Oximetry 98 03/30/24 17:42 Oxygen Delivery Room Air 03/30/24 17:33 Medical Decision Making MDM Narrative Medical decision making narrative: Patient had a diagnosis of community-acquired pneumonia 4 days ago at urgent care, started on doxycycline, Augmentin and albuterol inhaler, patient came to the ED complaining of still coughing a. Vital signs are stable Physical examination showed no significant abnormality Differential diagnosis include out patient failed treatment for pneumonia, bronchitis, viral infection Chest x-ray today showed no acute cardiopulmonary abnormalities. Patient was advised to continue home medication. Differential Diagnosis Differential Diagnosis: As above Vital Signs Vital Signs: Vital Signs Temperature 36.8 C 03/30/24 17:33 Pulse Rate 106 H 03/30/24 17:33 Respiratory Rate 18 03/30/24 17:33 Blood Pressure 147/85 H 03/30/24 17:33 Pulse Oximetry 99 03/30/24 17:33 Oxygen Delivery Room Air 03/30/24 17:33 Temperature 36.7 C 03/30/24 17:42 Pulse Rate 99 03/30/24 17:42 Respiratory Rate 16 03/30/24 17:42 Blood Pressure 151/98 H 03/30/24 17:42 Pulse Oximetry 98 03/30/24 17:42 Oxygen Delivery Room Air 03/30/24 17:33 Imaging Data Radiologist's impression: Impressions Chest X-Ray 03/30/24 18:11 IMPRESSION: No active cardiac pulmonary disease Status post CABG Critical Care Time Critical Care Time Critical Care Time: No Discharge Plan Discharge Clinical Impression: Bronchitis Patient Disposition: Home, Self-Care Condition: Stable Instructions: Acute Bronchitis (ED) Additional Instructions: Continue home medications, Tylenol, ibuprofen as needed Return if symptoms are worsening , call your family physician for appointment, take Tylenol as as needed for aches and pain, continue home medications. Prescriptions: No Action Creon 12,000-38,000 -60,000 unit capsule,delayed release(DR/EC) 2 cap PO TIDWM Qty: 180 0RF insulin lispro [Humalog KwikPen Insulin] 100 unit/mL insulin pen 8 unit SUBCUT TIDWMEAL insulin glargine [Lantus U-100 Insulin] 100 unit/mL solution 30 unit subcut HS gabapentin 600 mg tablet 600 mg PO TID atorvastatin 20 mg tablet 20 mg PO HS ergocalciferol (vitamin D2) 1,250 mcg (50,000 unit) capsule 50,000 unit PO WEEKLY Patient Comments: states she hasn't taken this medication for a couple of weeks. Rx Instructions: Takes on fridays ondansetron 4 mg tablet,disintegrating 4 mg PO Q8H PRN (Reason: nausea and vomiting) Qty: 10 0RF Patient Comments: unknown exact time taken yesterday ibuprofen 400 mg tablet 400 mg PO Q6H PRN (Reason: pain) Qty: 14 0RF Patient Comments: patients states she isn't aware of exact time she last took medication hydrocodone-acetaminophen 5-325 mg tablet 1 tablet PO Q8H PRN (Reason: pain) Qty: 10 0RF Patient Comments: patient states she took pain meds before coming to hospital, unknown exact time. tamsulosin [Flomax] 0.4 mg capsule 0.4 mg PO DAILY Qty: 10 0RF Follow-up/Referrals: Sloan,Chayito Lui APN [Primary Care Provider] -
[2024-03-30 17:42] VITALS: BP 151/98; PULSE 99; RESP 16; TEMP 36.7; O2SAT 98
[2024-03-30 18:36] VITALS: BP 146/90; PULSE 93; RESP 15; TEMP 36.2; O2SAT 98
== END 2024-03-30 18:37 | disposition home or self-care (01) ==
PROVIDERS: Emergency Provider Emergency Medicine; PCP Nurse Practitioner Family
DX: J45.909 Unspecified asthma, uncomplicated (principal); I10 Essential (primary) hypertension; E11.40 Type 2 diabetes mellitus with diabetic neuropathy, unspecified; E78.5 Hyperlipidemia, unspecified; K86.1 Other chronic pancreatitis; K21.9 Gastro-esophageal reflux disease without esophagitis; L40.9 Psoriasis, unspecified; Z95.1 Presence of aortocoronary bypass graft; Z87.442 Personal history of urinary calculi; Z87.01 Personal history of pneumonia (recurrent); Z90.49 Acquired absence of other specified parts of digestive tract; Z89.422 Acquired absence of other left toe(s); Z79.4 Long term (current) use of insulin; Z79.899 Other long term (current) drug therapy
CPT/HCPCS: 71046; 99283

== ENCOUNTER 2024-05-18 21:58 | Emergency (ER) | payer OTHER, SELFPAY ==
--- NOTE | ~2024-05-18 | CT_ITS ---
EXAMINATION: CT abdomen pelvis wo con DATE: 05/19/2024 02:57 INDICATION: Back and flank pain. History of kidney stones. TECHNIQUE: Computed tomography (CT) of the abdomen and pelvis was performed without intravenous contr ast. Automated exposure control and iterative reconstruction technique were employed. Exam dose: 795 .90 mGy-cm total exam DLP. COMPARISON: 10/03/2023 CT chest abdomen FINDINGS: There is minimal primarily dependent right lower lobe infiltrate. Mild patchy left lower lo be infiltrate. More prominent infiltrate or atelectasis is noted at the included lower lingula. Status post sternotomy. Borderline heart size. No pericardial or pleural effusion. Status post cholecystectomy. The liver, spleen are unremarkable. There are amorphous calcifications i n the pancreatic head consistent with chronic pancreatitis. No bile duct or pancreatic duct dilatatio n. Normal morphology of the adrenal glands. Pinpoint nonobstructing lower pole right renal calculus. Pinpoint nonobstructing lower pole left renal calculus. No left or right ureteral calculus or hydroureteronephrosis. The urinary bladder is unremarkable. There is an IUD in expected position within the uterus. Normal caliber of the abdominal aorta. No intraperitoneal or retroperitoneal or pelvic mass lesion or adenopathy or ascites. No evidence of appendicitis. No bowel obstruction, bowel wall thickening, pneumatosis or intraperiton eal free air is detected. No suspicious osteolytic or osteoblastic lesions. IMPRESSION: Small pinpoint nonobstructing calculus in the lower pole of each kidney; no ureteral irvin culus or hydroureteronephrosis IUD within expected position Status post cholecystectomy Mild bibasilar infiltrate and/atelectasis Status post sternotomy Reviewed, dictated and finalized at [facility]. Reviewed, dictated and finalized at location A. EL CLERK IMPRESSION: Small pinpoint nonobstructing calculus in the lower pole of each k idney; no ureteral calculus or hydroureteronephrosis IUD within expected position Status post cholecystectomy Mild bibasilar infiltrate and/atelectasis Status post sternotomy
[2024-05-18 22:02] VITALS: BP 146/83; PULSE 106; RESP 16; TEMP 36.3; O2SAT 93
[2024-05-18 22:20] LABS: Basophils Absolute Auto 0.1 K/mm3 (0.0-0.1); Basophils Percent Auto 0.7 % (0.2-1.2); Eosinophils Absolute Auto 0.2 K/mm3 (0-0.3); Immature Granulocyte Absolute 0.04 K/mm3 (0.00-0.031); Immature Granulocyte Percent A 0.4 % (0-0.5); Lymphocytes Absolute Auto 3.47 K/mm3 (0.9-3.2); Mean Corpuscular HGB Conc 31.7 g/dl (32-36); Mean Corpuscular Hemoglobin 26.4 pg (26-34); Mean Corpuscular Volume 83.3 fl (80-100); Mean Platelet Volume 10.8 fl (7.4-10.4); Monocytes Absolute Auto 0.9 K/mm3 (0.1-0.6); Monocytes Percent Auto 8.3 % (2.6-8.5); Neutrophils Absolute Auto 5.9 K/mm3 (1.3-6.7); Neutrophils Percent Auto 55.6 % (45.5-73.1); Platelet Count Result 223 k/mm3 (150-375); Red Blood Count 4.92 M/mm3 (4.2-5.4); Red Cell Distribution Width 15.3 % (11.5-14.5); White Blood Count 10.5 K/mm3 (4.5-10.0)
[2024-05-18 22:33] LABS: Alanine Aminotransferase 39 U/L (6-35); Albumin Level 3.9 g/dL (3.5-5.1); Alkaline Phosphatase 90 U/L (38-126); Anion Gap 7 mmol/L (4-12); Aspartate Amino Transferase 53 U/L (14-36); Bilirubin,Total 0.5 mg/dL (0.2-1.3); Blood Urea Nitrogen 19 mg/dL (7-17); Calcium 9.6 mg/dL (8.4-10.2); Carbon Dioxide 26 mmol/L (22-30); Chloride 103 mmol/L (98-107); Estimated Glomerular Filt Rate > 60; Glucose 161 mg/dL (65-110); Potassium 4.3 mmol/L (3.4-5.0); Sodium 136 mmol/L (137-145)
[2024-05-18 23:34] LABS: BEDSIDEPREGUCG Negative (Negative)
[2024-05-18 23:44] LABS: Add Urine Microscopic? YES; Appearance Urine Clear (Clear); Bacteria Urine None Seen /hpf; Bilirubin Urine Negative (Negative); Blood Urine Negative (Negative); Color Urine Yellow (Yellow); Glucose Urine UA 1+ mg/dL (Negative); Ketones Urine Negative (Negative); Leukocyte Esterase Ur Negative LEU/UL (Negative); Nitrate Urine Negative (Negative); Non Pathogenic Casts 0-2; Protein Urine 2+ mg/dL (Negative); RBC Urine 0-2 /hpf (0-2); Specific Grav Ur 1.016 (1.001-1.035); Squamous Epithelial Cell Urine Occasional /hpf (Few); WBC Urine 0-5 /hpf (0-3)
[2024-05-19 01:41] VITALS: BP 148/87; PULSE 102; RESP 20; TEMP 36.7; O2SAT 96
[2024-05-19 03:15] LABS: Lipase 152 U/L (23-300)
--- NOTE | 2024-05-19 05:36 | ED_ITS ---
HPI - General Adult General Chief complaint: Urogenital-Female Stated complaint: Lower back pain, uti? Time Seen by Provider: 05/19/24 02:39 History of Present Illness HPI narrative: 39-year-old female presents emergency department for evaluation for abdominal pain. Patient denies any associated nausea vomiting or diarrhea. Patient states the abdominal pain started as lower abdominal pain but has progressed to upper abdominal pain. Patient does have prior history of pancreatitis and she was concerned that this may be an issue. Patient also does have a prior history of ureteral calculi. Related Data Home Medications ?Medication ?Instructions ?Recorded ?Confirmed ?Last Taken ?Type gabapentin 600 mg tablet 600 mg PO TID 03/11/21 10/03/23 10/02/23 20:00 History 600 insulin glargine 100 unit/mL 30 unit subcut HS 06/24/21 10/03/23 10/02/23 21:00 History subcutaneous solution (Lantus 30 Units U-100 Insulin) insulin lispro 100 unit/mL 8 unit subcut TIDWMEAL 06/24/21 10/03/23 10/02/23 18:00 History subcutaneous pen (Humalog KwikPen 8 units (U-100) Insulin) atorvastatin 20 mg tablet 20 mg PO HS 12/19/22 10/03/23 10/02/23 21:00 History 20 ergocalciferol (vitamin D2) 1,250 50,000 unit PO WEEKLY 12/19/22 10/03/23 12/09/22 09:00 History mcg (50,000 unit) capsule Allergies Allergy/AdvReac Type Severity Reaction Status Date / Time No Known Allergies Allergy Unknown Verified 05/18/24 22:06 Review of Systems 2 Review of Systems: All systems reviewed & are unremarkable except as noted in HPI and below PMFSH Past Medical History Medical History Asthma Chronic pancreatitis Diabetic neuropathy Dyslipidemia Gastroesophageal reflux disease Hepatic steatosis With hepatomegaly Hypertension Hypertriglyceridemia Insulin dependent type 2 diabetes mellitus Poorly controlled with last A1c of 10.3 in 2022 Kidney stones Osteomyelitis of ankle or foot, left, acute (2020) Psoriasis Surgical History Surgical History 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 Surrogate medical decision maker: Carlee River, mother. Code status: Full code. Smoking status: Never smoker Alcohol intake: never Alcohol use details: Rare alcohol use. Substance use: never Substance use type: prescription drug Do You Feel Safe in your Home?: Yes Lack of Transportation: No Lack of Food: Never True Current Housing: I Have Housing Concerned About Future Housing: No Difficulty Paying Gas/Electric Bills: No Difficulty Paying for Meds: No Currently Unemployed: No Education: High School Diploma/GED Difficulty w/ Childcare or Family Care: No Living arrangements: with family Additional living arrangements comments: Lives in [place]. Two children at home. Spiritual care concerns: No Exam 2 Narrative: APPEARANCE: Well appearing, no pain, no distress, well-nourished. HEAD: normocephalic, atraumatic. EYES: PERRLA/EOMI, conjunctivae clear. NOSE: Normal no drainage EARS:TMS clear with good light reflex. THROAT: Pharynx clear, no exudate. NECK: Supple. No adenopathy, no masses. RESPIRATORY: Airway patent, respirations nonlabored. Clear to auscultation bilaterally, no rales, rhonchi, wheezing. CARDIOVASCULAR: Regular rate and rhythm without murmurs rubs or gallops. ABDOMINAL: Diffuse abdominal tenderness MUSCULOSKELETAL: Moves all extremities. Strength/ROM intact, No edema, No calf tenderness. NEURO: Alert. Cranial nerves II through XII intact. Good gait. Good coordination SKIN: Warm, dry. Normal Color Course Vital Signs Vital signs: Vital Signs Temperature 97.3 F L 05/18/24 22:02 Pulse Rate 106 H 05/18/24 22:02 Respiratory Rate 16 05/18/24 22:02 Blood Pressure 146/83 H 05/18/24 22:02 Pulse Oximetry 93 05/18/24 22:02 Oxygen Delivery Room Air 05/18/24 22:02 Temperature 98.0 F 05/19/24 01:41 Pulse Rate 102 H 05/19/24 01:41 Respiratory Rate 20 05/19/24 01:41 Blood Pressure 148/87 H 05/19/24 01:41 Pulse Oximetry 96 05/19/24 01:41 Oxygen Delivery Room Air 05/18/24 22:02 Medical Decision Making MDM Narrative Medical decision making narrative: 39-year-old female present to the emergency department for evaluation for abdominal pain. Patient was afebrile with a leukocytosis of 10.5 and hemoglobin of 13.0. No significant abnormalities on the patient's CMP UA was negative for infection. CT was ordered due to the worsening abdominal pain and showed no etiology for the patient's symptoms. Patient was updated on results of workup patient was comfortable plan for discharge and close follow-up with primary care physician. Differential Diagnosis Differential Diagnosis: Colitis, diverticulitis, appendicitis, ureteral calculi, pancreatitis Vital Signs Vital Signs: Vital Signs Temperature 97.3 F L 05/18/24 22:02 Pulse Rate 106 H 05/18/24 22:02 Respiratory Rate 16 05/18/24 22:02 Blood Pressure 146/83 H 05/18/24 22:02 Pulse Oximetry 93 05/18/24 22:02 Oxygen Delivery Room Air 05/18/24 22:02 Temperature 98.0 F 05/19/24 01:41 Pulse Rate 102 H 05/19/24 01:41 Respiratory Rate 20 05/19/24 01:41 Blood Pressure 148/87 H 05/19/24 01:41 Pulse Oximetry 96 05/19/24 01:41 Oxygen Delivery Room Air 05/18/24 22:02 Lab Data Lab results reviewed: Yes I reviewed the patient's lab results. 05/18/24 22:14 05/18/24 22:14 Labs: Lab Results 05/18/24 05/18/24 05/18/24 Range/Units 22:14 23:31 23:32 WBC 10.5 H (4.5-10.0) K/mm3 RBC 4.92 (4.2-5.4) M/mm3 Hgb 13.0 (12.0-15.0) g/dL Hct 41.0 (37.0-47.0) % MCV 83.3 (80-100) fl MCH 26.4 (26-34) pg MCHC 31.7 L (32-36) g/dl RDW 15.3 H (11.5-14.5) % Plt Count 223 (150-375) k/mm3 MPV 10.8 H (7.4-10.4) fl Immature Gran % (Auto) 0.4 (0-0.5) % Neut % (Auto) 55.6 (45.5-73.1) % Lymph % (Auto) 33.0 (18.3-44.2) % Garden % (Auto) 8.3 (2.6-8.5) % Eos % (Auto) 2.0 (0-4.4) % Baso % (Auto) 0.7 (0.2-1.2) % Lymph # (Auto) 3.47 H (0.9-3.2) K/mm3 Garden # (Auto) 0.9 H (0.1-0.6) K/mm3 Eos # (Auto) 0.2 (0-0.3) K/mm3 Baso # (Auto) 0.1 (0.0-0.1) K/mm3 Abs Immat Gran (auto) 0.04 H (0.00-0.031) K/mm3 Absolute Neuts (auto) 5.9 (1.3-6.7) K/mm3 Absolute Nucleated RBC 0.000 (0.0-0.012) K/mm3 Nucleated RBC % 0.0 (0.0-0.2) % Sodium 136 L (137-145) mmol/L Potassium 4.3 (3.4-5.0) mmol/L Chloride 103 (98-107) mmol/L Carbon Dioxide 26 (22-30) mmol/L Anion Gap 7 (4-12) mmol/L BUN 19 H (7-17) mg/dL Creatinine 0.70 (0.7-1.0) mg/dL Estim Creat Clear Calc Not Reportable Estimated GFR > 60 (59 - ) Glucose 161 H (65-110) mg/dL Calcium 9.6 (8.4-10.2) mg/dL Total Bilirubin 0.5 (0.2-1.3) mg/dL AST 53 H (14-36) U/L ALT 39 H (6-35) U/L Alkaline Phosphatase 90 (38-126) U/L Total Protein 8.0 (6.3-8.2) g/dL Albumin 3.9 (3.5-5.1) g/dL Lipase 152 (23-300) U/L Urine Color Yellow (Yellow) Urine Appearance Clear (Clear) Urine pH 7.0 (5.0-9.0) Ur Specific [place] 1.016 (1.001-1.035) Urine Protein 2+ H (Negative) mg/dL Urine Glucose (UA) 1+ H (Negative) mg/dL Urine Ketones Negative (Negative) mg/dL Ur Blood (Man) Negative (Negative) Urine Nitrate Negative (Negative) Urine Bilirubin Negative (Negative) Urine Urobilinogen 1.0 (<2.0) mg/dL Leukocyte Esterase Rfl Negative (Negative) HEATHER/UL Urine RBC 0-2 (0-2) /hpf Urine WBC 0-5 (0-3) /hpf Ur Squamous Epith Cells Occasional (Few) /hpf Urine Bacteria None seen /hpf Urine Casts 0-2 POC Urine HCG, Qual Negative (Negative) Imaging Data Radiologist's impression: Overnight read CT abdomen pelvis without contrast Impression no hydronephrosis or obstructing nephrolithiasis. Nonobstructing bilateral renal calculi are present. Calcifications of the pancreatic head concerning for chronic pancreatitis. An IUD is in good position. There is a 3.4 cm right ovarian cyst. The remaining solid organs are within normal limits. No bowel obstruction. No fracture. Nonspecific subcutaneous edema. Incidental findings. Bilateral airspace opacities are concerning for atypical infection or aspiration. Discharge Plan Discharge Clinical Impression: Abdominal pain Patient Disposition: Home, Self-Care Condition: Stable Instructions: Antibiotic Form, Abdominal Pain (ED) Additional Instructions: Have close follow-up with primary care physician. If you have any worsening symptoms then please call or return to the emergency department. Patient Language: [place] Prescriptions: No Action Creon 12,000-38,000 -60,000 unit capsule,delayed release(DR/EC) 2 cap PO TIDWM Qty: 180 0RF insulin lispro [Humalog KwikPen Insulin] 100 unit/mL insulin pen 8 unit SUBCUT TIDWMEAL insulin glargine [Lantus U-100 Insulin] 100 unit/mL solution 30 unit subcut HS gabapentin 600 mg tablet 600 mg PO TID atorvastatin 20 mg tablet 20 mg PO HS ergocalciferol (vitamin D2) 1,250 mcg (50,000 unit) capsule 50,000 unit PO WEEKLY Patient Comments: states she hasn't taken this medication for a couple of weeks. Rx Instructions: Takes on fridays ondansetron 4 mg tablet,disintegrating 4 mg PO Q8H PRN (Reason: nausea and vomiting) Qty: 10 0RF Patient Comments: unknown exact time taken yesterday ibuprofen 400 mg tablet 400 mg PO Q6H PRN (Reason: pain) Qty: 14 0RF Patient Comments: patients states she isn't aware of exact time she last took medication hydrocodone-acetaminophen 5-325 mg tablet 1 tablet PO Q8H PRN (Reason: pain) Qty: 10 0RF Patient Comments: patient states she took pain meds before coming to hospital, unknown exact time. tamsulosin [Flomax] 0.4 mg capsule 0.4 mg PO DAILY Qty: 10 0RF Follow-up/Referrals: Sloan,Chayito Lui APN [Primary Care Provider] -
== END 2024-05-19 05:52 | disposition home or self-care (01) ==
PROVIDERS: Emergency Provider Emergency Medicine; PCP Nurse Practitioner Family
DX: R10.9 Unspecified abdominal pain (principal); Z79.4 Long term (current) use of insulin; J45.909 Unspecified asthma, uncomplicated; E11.40 Type 2 diabetes mellitus with diabetic neuropathy, unspecified; K21.9 Gastro-esophageal reflux disease without esophagitis; E78.49 Other hyperlipidemia; I10 Essential (primary) hypertension
CPT/HCPCS: 36415; 74176; 80053; 81001; 81025; 83690; 85025; 99284

== ENCOUNTER 2024-06-16 22:21 | Emergency (ER) | payer OTHER, SELFPAY ==
--- NOTE | ~2024-06-16 | CT_ITS ---
Clinical Indication: Abdominal pain CT Scan of the Chest, Abdomen, and Pelvis with Contrast: Technique: Contiguous sections were acquired throughout the chest, abdomen, and pelvis after intraven ous administration of 100 cc of Omnipaque 350. Dose reduction technique was used on this scan by uti lizing automated exposure control and iterative reconstruction technique. The dose-length product (DL P) was 1696.52 mGy-cm. Comparison: 05/19/2024 Findings: There is no evidence of any significant mediastinal, hilar or axillary lymphadenopathy. The mediastin al soft tissues and vascular structures appear normal. There is no evidence of pleural or pericardial effusion. 7 mm apical pulmonary nodule present (axial image 20). There is minimal patchy airspace opacity at th e left lung base. There is diffuse hepatic steatosis. The spleen, pancreas, adrenals and and left kidney are within nor mal limits. Cholecystectomy clips are present. 2 mm nonobstructing right renal stone present. No evid ence of aortic aneurysm. No lymphadenopathy. No bowel obstruction or bowel wall thickening. There is no evidence to suggest acute appendicitis. Urinary bladder is unremarkable. IUD in place. There are cervical nabothian cysts. Small right ovaria n cyst noted. No ascites. Impression: 7 mm right apical pulmonary nodule. According to Fleischner Society criteria, for a low-risk patient, recommend follow-up CT scan in 6-12 months, then consider additional 18-[address] For a high-risk patient, follow-up CT scans at both 6-12 months and 18-24 months are recommended. Minimal patchy airspace opacity left lung base. Correlate for mild atelectasis versus pneumonia. 2 mm nonobstructing right renal stone. IUD in place. Diffuse hepatic steatosis. Reviewed, dictated and finalized at location . & [employer] FOUNDER Impression: 7 mm right apical pulmonary nodule. According to Fleischner Society criteria, f or a low-risk patient, recommend follow-up CT scan in 6-12 months, then conside r additional 18-[address] For a high-risk patient, follow-up CT scans at bot h 6-12 months and 18-24 months are recommended. Minimal patchy airspace opacity left lung base. Correlate for mild atelectasis versus pneumonia. 2 mm nonobstructing right renal stone. IUD in place. Diffuse hepatic steatosis.
--- NOTE | ~2024-06-16 | XR_ITS ---
Portable chest x-ray Comparison: 03/30/2024 Clinical History: Cough Findings: There is mild right basilar haziness. Left lung essentially clear. Cardiomediastinal silh ouette is stable. Bones and soft tissues are unremarkable. Impression: Mild right basilar haziness. Correlate for minimal pulmonary edema versus infection. Status post CABG. Reviewed, dictated and finalized at [facility]. TRAILER FILLER Impression: Mild right basilar haziness. Correlate for minimal pulmonary edema versus infec tion. Status post CABG.
--- OUTSIDE RECORDS SUMMARY | 2024-06-16 22:23 | XMS_ITS | CONTINUITY OF CARE DOCUMENT ---
Author Name dimitrios plunkett Address Unknown Organization [facility] Office Address [address] [place] [address] [address] [place] [address] Phone [phone] Care Team Providers Care Hogshead Wrecker Name Role Phone Germain SHAH, Unavailable [phone]
--- OUTSIDE RECORDS SUMMARY | 2024-06-16 22:23 | XMS_ITS | Referral Summary ---
Author Organization [facility] Address [address] [place] [address] Care Team Providers Care Hr Systems Analyst Name Role Phone Chayito Sloan APRN-GREGORY Primary Care Provider [phone] Source Comments [facility],non-owned Affiliates and Associated Physician Practices is amultiple site organization consisting of ambulatory clinics and hospital sitesin [place], [place], [place] and [place]. This disclosure is being madepursuant to the Care Everywhere program and may not contain all information available regarding this patient. Last updated 18.[facility] Social History Tobacco Use Types Packs/Day Years Used Date Smoking Tobacco: Never Assessed Sex and Gender Information Value Date Recorded Sex Assigned at Not on file Gender Identity Not on file Sexual Orientation Not on file Plan of Treatment Not on file Care Teams Hr Systems Analyst Relationship Specialty Start Date End Date Chayito Sloan APRN-CNP [address] [place] [phone] PCP - General Nurse Practitioner Family 10/11/23
--- OUTSIDE RECORDS SUMMARY | 2024-06-16 22:23 | XMS_ITS ---
Author Organization [facility] Address [address] [place] [address] Care Team Providers Care Car Repossessor Name Role Phone Darin SHAH, Alissa Primary Care Provider Unavail able MIQUEL MACHINING MANAGER, JAYANT Unavailable Oliver SHAH, Lacho Unavailable Unavailable NANDO SHAH, BAILEY Unavailable REASON FOR VISIT ERCP w/stenting for ESWL on 10/20/23 Encounters Encounter Location Date Provider Diagnosis [facility] - Op [address] [place] [id number] 10/18/2023 BAILEY COLLIER PLAN OF TREATMENT No Information Progress Notes * Gem MORALES DDOB: [birth year] (39 yo F)Acc No.[id number]:10/18/2023 Patient: HANG Gem Norton Provider: Bailey Collier MD, FASGE :1985 Age:38 Y Sex:Female Date:10/18/2023 Address:[address], [facility] Pcp:Gemini Lincoln * Images: * Sign off status: Pending * Provider: Bailey Collier MD, FASGE Date: 10/18/2023
--- OUTSIDE RECORDS SUMMARY | 2024-06-16 22:23 | XMS_ITS | Encounter Summary ---
Author Organization [facility] Healthcare Address [address] [place] [address] Care Team Providers Care Principal Trainer Name Role Phone Dejuan Malcolm MD Unavailable [phone] Chayito Sloan NP Primary Care Provider [phone] Dave Oliva MD Unavailable [phone] Johan Rogel MD Unavailable [phone] Tomas Gray MD Unavailable [phone] Encounter Details Date Type Department Care Team (Late st Contact Info) Description 10/03/2023 Orders Only [facility] Health Information Management [address] [place] [address] Gertrudis Farah DO [address] [place] [id number] Social History Tobacco Use Types Packs/Day Years Used Date Smoking Tobacco: Never [facility] Utilities Answer Date Recorded In the past 12 months has [employer], gas, oil, or water [employer] [employer] threatened to shut off services in your home? No 10/05/2023 Social Connection and Isolat ion Panel [NHANES] Answer Date Recorded In a typical week, how many times do you talk on the phone with family, friends, or neighbors? More than three times a week 10/05/2023 How often do you get togethe r with friends or relatives? Once a week 10/05/2023 How often do you attend [facility] or jewish services? Never 10/05/2023 Do you belong to any clubs o r organizations such as tenriism groups, unions, fraternal or athletic groups, or school groups? No 10/05/2023 How often do you attend meet ings of the clubs or organizations you belong to? Never 10/05/2023 Are you , , di vorced, , never , or living with a partner? Living with partner 10/05/2023 AUDIT-C Answer Date Recorded Q1: How often do you have a drink containing alcohol? Never 10/05/2023 Q2: How many drinks containi ng alcohol do you have on a typical day when you are drinking? Patient does not drink Q3: How often do you have si x or more drinks on one occasion? Never 10/05/2023 Overall Financial Resource Strain (CARDIA) Answe r Date Recorded How hard is it for you to pa y for the very basics like food, housing, medical care, and heating? Not hard at all 10/05/2023 Hunger Vital Sign Answer Date Recorded Within the past 12 months, y ou worried that your food would run out before you got the money to buy more. Never true 10/05/19 24 Within the past 12 months, t he food you bought just didn't last and you didn't have money to get more. Never true 10/05/2023 PRAPARE - Transportation Answer Date Re corded In the past 12 months, has l ack of transportation kept you from medical appointments or from getting medications? No 09/07 In the past 12 months, has l ack of transportation kept you from meetings, work, or from getting things needed for daily living? No 10/05/2023 Housing Stability Vital Sign Answer Rajan e Recorded In the last 12 months, was t here a time when you were not able to pay the mortgage or rent on time? No 06/21/2023 In the last 12 months, how many places have you lived? 1 06/21/2023 In the last 12 months, was t here a time when you did not have a steady place to sleep or slept in a penitentiary (including now)? No 06/21/2023 Housing Stability Vital Sign Answer Rajan e Recorded In the last 12 months, was t here a time when you were not able to pay the mortgage or rent on time? No 10/05/2023 In the past 12 months, how m any times have you moved where you were living? 1 10/05/2023 At any time in the past 12 m [facility], were you homeless or living in a penitentiary (including now)? No 10/05/2023 Personal Safety Answer Date Recorded Have you ever been in or are you currently in a harmful physical or emotional relationship or is someone making you feel afraid or unsafe? Denies 09/11/2023 Comments Unknown Sex and Gender Information Value Date Recorded Sex Assigned at Not on file Legal Sex Female 2:12 PM CDT Gender Identity Not on file Sexual Orientation Not on file documented as of this encounter Plan of Treatment Not on file documented as of this encounter Procedures Procedure Name Priority Date/Time Associated Diagnosis Comments CARDIOLOGY DOCUMENT SCAN 10/03/2023 documented in this encounter Results * Cardiology Document Scan (10/03/2023) Anatomical Region Laterality Modality Other Gertrudis Farah [facility] PROCEDURES Final Result documented in this encounter Visit Diagnoses Not on filedocumented in this encounter Additional Health Concerns Infection Onset Date Last Indicated Resolved Time MRSA Comment:Nares 10/14/23 10/14/2023 10/14/2023 04/11/2024 3:06 AM COLOR FINISHER VRE Comment:Urine - 10/14/2023 10/14/2023 10/14/2023 04/11/2024 3: 06 AM COLOR FINISHER documented as of this encounter Care Teams Principal Trainer Relationship Specialty Start Date End Date Chayito Sloan NP [address] [facility] [address] [place] [address] PCP - General Nurse Practitioner 08/29/23 Dejuan Malcolm MD [address] [facility] [address] [place] [address] Consulting Physician Gastroenterology 06/21/23 [place] [address] [place] [address] Surgeon Cardiothoracic Surgery 10/12/23 4 Johan Rogel MD [address] [facility] [address], [place] [address] Consulting Physician Interventional Cardiology 10/12/23 [place] [address] [facility] [address] [place] [address] Consulting Physician Endocrinology Diabetes & Metabolism 10/12/23 documented as of this encounter
--- OUTSIDE RECORDS SUMMARY | 2024-06-16 22:23 | XMS_ITS | Encounter Summary ---
Author Organization [facility] Healthcare Address [address] [place] [address] Care Team Providers Care Director Retail Brand Development Name Role Phone Dejuan Malcolm MD Unavailable Chayito Sloan NP Primary Care Provider [phone] Dave Oliva MD Unavailable [phone] Johan Rogel MD Unavailable [phone] Tomas Gray MD Unavailable [phone] Encounter Details Date Type Department Care Team (Late st Contact Info) Description 10/04/2023 Orders Only [facility] Health Information Management [address] [place] [id number] Scanning, Provider Social History Tobacco Use Types Packs/Day Years Used Date Smoking Tobacco: Never [facility] Utilities Answer Date Recorded In the past 12 months has [employer], gas, oil, or water company threatened to shut off services in your [...] week 10/05/2023 How often do you attend chur ch or samaritan services? Never 10/05/2023 Do you belong to any clubs o r organizations such as advent groups, unions, fraternal or athletic groups, or [...] place to sleep or slept in a half-way (including now)? No 06/21/2023 Housing Stability Vital Sign Answer Rajan e Recorded In the last 12 months, was t here a time when you were not able to pay the mortgage or rent on time? No 10/05/2023 In the past 12 months, how m any times have you moved where you were living? 1 10/05/2023 At any time in the past 12 m [facility], were you homeless or living in a half-way (including now)? No 10/05/2023 Personal Safety Answer [...] Procedure Name Priority Date/Time Associated Diagnosis Comments SCAN - LABS 10/04/2023 documented in this encounter Results * SCAN - LABS (10/04/2023) us Provider Scanning Final Result documented in this encounter Visit Diagnoses Not on filedocumented in this encounter Additional Health Concerns Infection Onset Date Last Indicated Resolved Time MRSA Comment:Nares 10/14/23 10/14/2023 10/14/2023 04/11/2024 3:06 AM VEHICLE INSPECTOR VRE Comment:Urine - 10/14/2023 10/14/2023 10/14/2023 04/11/2024 3: 06 AM VEHICLE INSPECTOR documented as of this encounter Care Teams Director Retail Brand Development Relationship Specialty Start Date End Date Chayito Sloan NP [address] [place] [address] PCP - General Nurse Practitioner 08/29/23 Dejuan Malcolm MD [address] [facility] [address] [place] [address] Consulting Physician Gastroenterology 06/21/23 [place] [address] [place] [address] Surgeon Cardiothoracic Surgery 10/12/23 4 Johan Rogel MD [address] [facility] [address] [place] [address] Consulting Physician Interventional Cardiology 10/12/23 [place] [address] [facility] [address] [place] [address] Consulting Physician Endocrinology Diabetes & Metabolism 10/12/23 documented as of this encounter
--- OUTSIDE RECORDS SUMMARY | 2024-06-16 22:23 | XMS_ITS | Clinical Summary ---
Author Organization [facility] Address [address] [facility] [place] [address] Care Team Providers Care Agent Contract Clerk Name Role Phone Chayito Sloan SCOTT-WESTERN PHILOSOPHY PROFESSOR Primary Care Provider [phone] Source Comments [facility],non-owned Affiliates and Associated Physician Practices is amultiple site organization consisting of ambulatory clinics and hospital sitesin [place], [place], [place] and [place]. This disclosure is being madepursuant to the Care Everywhere program and may not contain all information available regarding this patient. Last updated 18.[facility] [employer] Social History Tobacco Use Types Packs/Day Years Used Date Smoking Tobacco: Never Assessed Sex and Gender Information Value Date Recorded Sex Assigned at Not on file Gender Identity Not on file Sexual Orientation Not on file Plan of Treatment Health Maintenance Due Date Last Done Comments LIPID TESTING 1985 MAMMOGRAM 1985 PAP SMEAR 1984 HIV SCREENING 01/22/1999 HEPATITIS C SCREENING 01/18/2002 DTAP/TDAP/TD VACCINES (1 - Tdap) 01/22/2003 HEPATITIS B VACCINE (1 of 3 - 19+ 3-dose series) 01/22/2003 COVID-19 VACCINE (2023-2 5 season) 2024 INFLUENZA VACCINE (#1) 2024 DEPRESSION SCREENING 05/08/2024 ZOSTER VACCINE (1 of 2) 01/22/2034 HIB VACCINE Aged Out No longer eligi ble based on patient's age to complete this topic HPV VACCINE Aged Out No longer eligi ble based on patient's age to complete this topic MENINGOCOCCAL (Group B) VACCINE Aged Out No longer eligible based on patient's age to complete this topic MENINGOCOCCAL VACCINE Aged Out No shantel alma rosa eligible based on patient's age to complete this topic PNEUMOCOCCAL VACCINE Aged Out No long er eligible based on patient's age to complete this topic Care Teams Agent Contract Clerk Relationship Specialty Start Date End Date Chayito Sloan APRN-WESTERN PHILOSOPHY PROFESSOR [address] [place] [address] PCP - General Nurse Practitioner Family 10/11/23
--- OUTSIDE RECORDS SUMMARY | 2024-06-16 22:23 | XMS_ITS | Encounter Summary ---
Author Organization [facility] Address [address] [place] [address] Phone Care Team Providers Care Marine Photographer Name Role Phone Nathalia Chayito CHAVEZ CNP Primary Care Provider [phone] Broderick Perez MD Unavailable Albert Olivera MD Unavailable [phone] Reason for Visit * Reason Comments Medication Refill Encounter Details Date Type Department Care Team (Late Contact Info) Description [facility]/23[facility] [place] [phone] Albert Olivera MD [address] [place] [phone] Medication Refill Social History Tobacco Use Types Packs/Day Years Used Date Smoking Tobacco: Never Smokeless Tobacco: Never Alcohol Use Standard Drinks/Week Comments Not Currently 0 (1 standard drink = 0.6 oz pur e alcohol) Sexually Active Control Partners Comments Yes Comments Unknown Sex and Gender Information Value Date Recorded Sex Assigned at Not on file Legal Sex Female 8:35 AM PAPER RECLAIMING MACHINE OPERATOR Gender Identity Not on file Sexual Orientation Not on file documented as of this encounter Plan of Treatment Upcoming Encounters Date Type Department Care Team (Late Contact Info) Description 10/21/2024 11:00 AM CDT Office Visit [facility] [address] [place] [phone] Albert Olivera MD [address] [place] [address] documented as of this encounter Visit Diagnoses Not on filedocumented in this encounter Care Teams Marine Photographer Relationship Specialty Start Date End Date Chayito Sloan APRN, CNP [address] [address] PCP - General Family Medicine 11/22/23 Broderick Perez MD [address] [phone] Consulting Physician Endocrinology 01/02/24 Albert Olivera MD [address] [place] [phone] Consulting Physician Neurology 01/23/24 documented as of this encounter
--- OUTSIDE RECORDS SUMMARY | 2024-06-16 22:23 | XMS_ITS | Patient Health Summary ---
Author Organization [facility] Address [address] [place] [address] Care Team Providers Care Rn Discharge Name Role Phone Chayito Sloan Primary Care Provider [phone] Note from [facility],non-owned Affiliates and Associated Physician Practices is amultiple site organization consisting of ambulatory clinics and hospital sitesin [place], [place], [place] and [place]. This disclosure is being madepursuant to the Care Everywhere program and may not contain all information available regarding this patient. Last updated 18.[facility] Social History Tobacco Use Types Packs/Day Years Used Date Smoking Tobacco: Never Assessed Sex and Gender Information Value Date Recorded Sex Assigned at Not on file Gender Identity Not on file Sexual Orientation Not on file Care Teams Rn Discharge Relationship Specialty Start Date End Date Chayito Sloan APRN-CNP [address] [place] [address] PCP - General Nurse Practitioner Family 10/11/23
--- OUTSIDE RECORDS SUMMARY | 2024-06-16 22:23 | XMS_ITS ---
Author Organization [facility] Address [address] [place] [address] Care Team Providers Care Cable Mechanic Name Role Phone Darin SHAH, Alissa Primary Care Provider Unavail able MIQUEL LOAN MANAGER, JAYANT Unavailable [phone] Oliver SHAH, Lacho Unavailable Unavailable NANDO SHAH, BAILEY Unavailable [phone] REASON FOR VISIT ESWL Admit to Sandrine Encounters Encounter Location Date Provider Diagnosis [facility] - Op [address] [place], [place] [id number] 10/20/2023 BAILEY COLLIER PLAN OF TREATMENT No Information Progress Notes * MORALESGem BOX DDOB: [birth year] (39 yo F)Acc No.[id number]:10/20/2023 Patient: Gem MORALES Provider: Bailey Collier MD, FASGE :1985 Age:38 Y Sex:Female Date:10/20/2023 Address:[address], [facility] Pcp:Gemini Lincoln * Images: * Sign off status: Pending * Provider: Bailey Collier MD, FASGE Date: 10/20/2023
--- OUTSIDE RECORDS SUMMARY | 2024-06-16 22:23 | XMS_ITS ---
Author Organization [facility] Address [address] [place] [address] Care Team Providers Care Barrel Bridge Assembler Name Role Phone Darin SHAH, Alissa Primary Care Provider Unavail able MIQUEL MECHANICAL MAINTENANCE FOREMAN, JAYANT Unavailable [phone] Oliver SHAH, Lacho Unavailable Unavailable NANDO SHAH, BAILEY Unavailable REASON FOR VISIT ERCP w/stone extraction Encounters Encounter Location Date Provider Diagnosis [facility] - Op [address] [place], [place] [id number] 10/20/2023 BAILEY COLLIER PLAN OF TREATMENT No Information Progress Notes * Gem MORALES DDOB: [birth year] (39 yo F)Acc No.[id number]:10/20/2023 Patient: Gem MORALES Provider: Bailey Collier MD, FASGE :1985 Age:38 Y Sex:Female Date:10/20/2023 Address:[address], [facility] Pcp:Gemini Lincoln * Images: * Sign off status: Pending * Provider: Bailey Collier MD, FASGE Date: 10/20/2023
--- OUTSIDE RECORDS SUMMARY | 2024-06-16 22:23 | XMS_ITS | Clinical Summary ---
Author Organization [facility] Address [facility] [place] [address] Care Team Providers Care Inbound Sales Manager Name Role Phone Alissa Webster MD Primary Care Provider [phone] Allergies No known active allergies Medications insulin lispro, 1 Unit Dial, (HUMALOG) 100 UNIT/ML injection (PEN) Inject 8 Units into the skin 3 (three) times daily before meals. Active insulin glargine (LANTUS) 100 UNIT/ML injection (PEN) Inject 40 Units into the skin nightly at bedtime. Active gabapentin (NEURONTIN) 600 MG tablet Take 1 tablet (600 mg total) by mouth 3 (three) times daily. 2 tablets three times a day, if pain is less, will sometimes take 1 Active pancrelipase, Vsb-Yysa-Rget, (CREON) 63949 UNIT CAPSULE ENTERIC COATED PARTICLES Take 1 capsule (12,000 units of lipase total) by mouth 3 (three) times daily with meals. Active atorvastatin (LIPITOR) 20 MG tablet Take 1 tablet (20 mg total) by mouth nightly at bedtime. Active vitamin D2 (ERGOCALCIFEROL ) 200 mcg/mL Solution solution Take 0.5 mLs (100 mcg total) by mouth daily. Fridays Active HYDROcodone-deny taminophen (NORCO) 5-325 MG tabletIndicatio ns:Acute Pain < 7 Day Supply Take 1-2 tablets by mouth every 6 (six) hours as needed for Pain. Indications: Acute Pain < 7 Day Supply 30 tablet 4 Active Family History Medical History Relation Comments Diabetes Father No Known Problems Mother Relation Status Comments Father Alive Mother Alive Social History Tobacco Use Types Packs/Day Years Used Date Smoking Tobacco: Never Smokeless Tobacco: Never Tobacco Cessation:Counseling Given: Not Answered Alcohol Use Standard Drinks/Week Comments Never 0 (1 standard drink = 0.6 oz pur e alcohol) Comments No Sex and Gender Information Value Date Recorded Sex Assigned at Not on file Legal Sex Female 10:05 AM FRUIT VENDOR Gender Identity Not on file Sexual Orientation Not on file Last Filed Vital Signs Vital Sign Reading Time Taken Comments Blood Pressure 138/90 05/29/2023 9:45 AM FRUIT VENDOR Pulse 87 05/29/2023 9:45 AM FRUIT VENDOR Temperature 36.7 C (98.1 F) 05/29/2023 9:45 AM FRUIT VENDOR Respiratory Rate 16 05/29/2023 9:45 AM FRUIT VENDOR Oxygen Saturation 97% 05/29/2023 9:45 AM FRUIT VENDOR Inhaled Oxygen Concentration - - Weight 93.9 kg (207 lb 0.2 oz) 05/29/2023 6:10 A M FRUIT VENDOR Height 151.1 cm (4' 11.5 ) 05/22/2023 11:[address] Body Mass Index 41.11 05/22/2023 11:48 AM FRUIT VENDOR Plan of Treatment Health Maintenance Due Date Last Done Comments Cervical Cancer Screening Pa p Smear (Age 30 to 64) Every 3 Years 1985 Annual Physical 01/22/1987 Hepatitis C 01/22/2002 Hepatitis B Vaccines (1 of 3 - 19+ 3-dose series) 01/22/2003 DTaP, Tdap and Td Vaccines ( 1 - Tdap) 06/23/2013 06/22/2013 Cervical Cancer Screening Pa p with HPV Testing (Age 30 to 64) Every 5 Years 01/22/2014 Cervical Cancer Screening with HPV 01/22/2014 COVID-19 Vaccine ( - 2023-2 5 season) 2024 Mammogram Screening 2024 Influenza Adult (#1) 2024 HPV Vaccines Aged Out No longer eligi ble based on patient's age to complete this topic Meningococcal B Vaccine Aged Out No l onger eligible based on patient's age to complete this topic Meningococcal Vaccine Aged Out No shantel alma rosa eligible based on patient's age to complete this topic Pneumococcal Vaccine: Pediat rics (0 to 5 Years) and At-Risk Patients (6 to 64 Years) Aged Out No longer eligi ble based on patient's age to complete this topic RSV Immunizations Under 20 Months Aged Out No longer eligible based on patient's age to complete this topic Insurance [employer] Care Teams Inbound Sales Manager Relationship Specialty Start Date End Date Alissa Webster MD [address] [place] [id number] PCP - General INTERNAL MEDICINE 05/29/23
--- OUTSIDE RECORDS SUMMARY | 2024-06-16 22:23 | XMS_ITS | Clinical Summary ---
Author Organization [facility] Address [address] [place] [address] Phone Care Team Providers Care Tire Fixer Name Role Phone Nathalia, Chayito CHAVEZ CNP Primary Care Provider [phone] Broderick Perez MD Unavailable Albert Olivera MD Unavailable [phone] Allergies Active Allergy Reactions Criticality Noted Date Comments Wound Dressing Adhesive Rash 05/20/2024 Medications ibuprofen (MOTRIN) 800 MG Tablet Take 800 mg by mouth every 6 hours as needed. Active atorvastatin (LIPITOR) 20 MG Tablet Take 20 mg by mouth daily. Active pancrelipase, lipase-proteas e-amylase, (Creon) [id number] Capsule DR Particles Take 1 Capsule by mouth 3 times daily (with meals). Active fenofibrate 160 MG Tablet Take 160 mg by mouth daily. Active gabapentin (NEURONTIN) 600 MG Tablet Take 600 mg by mouth 3 times daily. Active Continuous Glucose Sensor (Dexcom G7 Sensor) MiscIndication s:Type 2 diabetes mellitus with diabetic polyneuropathy , with long-term current use of insulin (HCC) Every 10 days 9 Each 1 4 Active Continuous Glucose Auto Parts Handler (Dexcom G7 Auto [employer] Handler) DeviceIndicati ons:Type 2 diabetes mellitus with diabetic polyneuropathy , with long-term current use of insulin (HCC) Check blood sugar before each meal and at bedtime 1 Each 4 Active Glucose Blood (OneTouch Ultra) Strip 4 times a day 400 Each 3 4 Active Blood Glucose Monitoring Suppl (ONE TOUCH ULTRA 2) w/Device Kit Check blood glucose before each meal and at bedtime 1 Each 4 Active metFORMIN (GLUCOPHAGE) 500 MG Tablet Take 2 Tablets by mouth 2 times daily (with meals). 360 Tablet 1 4 Active insulin glargine (Lantus SoloStar) 100 UNIT/ML Solution Pen-injector 40 Units by Subcutaneous route nightly. 30 mL 1 4 Active Insulin Lispro, 1 Unit Dial, (HumaLOG KwikPen) 100 UNIT/ML Solution Pen-injector 15 units before each meal; correctional factor insulin of 1:15 if >140 mg/dL, up to 70 units/day 60 mL 1 4 Active Insulin Pen Needle (Pen [place]) 31G X 6 MM Misc 4 times a day 400 Each 3 4 Active Lancets Misc 4 times a day 400 Lancet . 3 4 Active DULoxetine (CYMBALTA) [address] Particles Take 1 Capsule by mouth 2 times daily. 60 Capsule 3 4 Active cyclobenzaprin e (FLEXERIL) 10 MG Tablet Take 1 Tablet by mouth 3 times daily as needed (pain) for up to 14 days. 30 Tablet 5 06/03/19 25 Active Problems Problem Noted Date Diagnosed Date Type 2 diabetes mellitus wit h diabetic polyneuropathy, with long-term current use of insulin 01/10/2024 Encounters Date Type Department Care Team Description 05/29/2024 4:45 PM INFANTRY ASSAULTMAN - 05/29/2024 11:59 PM INFANTRY ASSAULTMAN [facility] [address] [place] [address] Chayito Sloan APRN, NURSERY ATTENDANT Discharge Disposition: Discharged to home or Selfcare 05/29/2024 Travel 05/29/2024 Transcribe Orders [facility] Central Scheduling [address] [place] [address] Chayito Sloan APRN, GREGORY Lumbar radiculopathy (Primary Dx) 05/20/2024 9:34 PM INFANTRY ASSAULTMAN - 05/21/2024 12:09 AM INFANTRY ASSAULTMAN Emergency [facility] Emergency [address] [place] [address] Donte Palomares DO Kidney stones Discharge Disposition: Discharged to home or Selfcare 05/20/2024 Travel 04/23/2024 Refill [facility] [address] [place] [address] Albert Olivera MD Medication Refill 04/22/2024 1:45 PM INFANTRY ASSAULTMAN Office Visit [facility] [address] [place] [address] Albert Olivera MD Type 2 diabetes mellitus with diabetic polyneuropathy, with long-term current use of insulin (HCC) (Primary Dx); Ischemic cardiomyopathy; Morbid obesity (HCC); Renal insufficiency Discharge Disposition: Discharged to home or Selfcare 04/22/2024 Travel 03/27/2024 10:00 AM INFANTRY ASSAULTMAN [facility] [address] [place] [address] Albert Olivera MD Type 2 diabetes mellitus with diabetic polyneuropathy, with long-term current use of insulin (HCC) Discharge Disposition: Discharged to home or Selfcare 03/27/2024 Travel 03/25/2024 Travel 03/21/2024 Refill [facility] [address] [place] [address] Albert Olivera MD Medication Refill from Last 3 Months Immunizations Immunization Administration Dates Next Due Human Papillomavirus (HPV) Vaccine, Bivalent Human Papillomavirus Vaccine (HPV), quadrivalent 01/04/2007,11/03/2006 MMR Vaccine 04/27/1993 Pneumococcal conjugate PCV20 , polysaccharide [id number] conjugate, adjuvant, PF 08/17/2021 TDAP Vaccine 11/03/2006 Td, Unspecified Formulation 06/22/2013 Family History Medical History Relation Name Comments Diabetes Father No Known Problems Mother Relation Name Status Comments Father Alive Mother Alive Social History Tobacco Use Types Packs/Day Years Used Date Smoking Tobacco: Never Smokeless Tobacco: Never Tobacco Cessation:Counseling Given: Not Answered Alcohol Use Standard Drinks/Week Comments Not Currently 0 (1 standard drink = 0.6 oz pur e alcohol) Sexually Active Control Partners Comments Yes Comments Unknown Sex and Gender Information Value Date Recorded Sex Assigned at Not on file Legal Sex Female 8:35 AM INFANTRY ASSAULTMAN Gender Identity Not on file Sexual Orientation Not on file Last Filed Vital Signs Vital Sign Reading Time Taken Comments Blood Pressure 148/87 05/20/2024 11:15 PM INFANTRY ASSAULTMAN Pulse 108 05/21/2024 12:00 AM INFANTRY ASSAULTMAN Temperature 36.6 C (97.9 F) 05/20/2024 9:29 PM INFANTRY ASSAULTMAN Respiratory Rate 16 05/20/2024 9:29 PM INFANTRY ASSAULTMAN Oxygen Saturation 95% 05/21/2024 12:00 AM INFANTRY ASSAULTMAN Inhaled Oxygen Concentration - - Weight 93.4 kg (206 lb) 05/20/2024 9:29 PM INFANTRY ASSAULTMAN Height 149.9 cm (4' 11 ) 05/20/2024 9:29 PM INFANTRY ASSAULTMAN Body Mass Index 41.61 05/20/2024 9:29 PM INFANTRY ASSAULTMAN Plan of Treatment Upcoming Encounters Date Type Department Care Team (Late st Contact Info) Description 10/21/2024 11:00 AM CDT Office Visit [facility] [address] [place] [address] Albert Olivera MD [address] [place] [address] Health Maintenance Due Date Last Done Comments Diabetes: Eye Exam 1984 Hepatitis C Virus (HCV) Screening 1984 Hepatitis B Immunization (1 of 3 - 19+ 3-dose series) 01/22/2003 Pap Smear 01/22/2005 Cervical Cancer Screening (CCS) 01/22/2014 HPV/Cotest 01/22/2014 Td Immunization Every 10 Years (Adults With 1 Tdap) 06/22/2023 06/22/2013, 11/03/2006 Influenza Immunization (#1) 2024 SARS-COV-2 Immunization ( season) 2024 08/17/2021, 07/20/2021 Discussion re Starting/Frequency of Mammograms 2024 Diabetes: Hemoglobin A1c 10/18/2024 024, 01/10/2024, 10/04/2023 Diabetes: Foot Exam 01/09/2025 01/10/2024 Diabetes: Nephropathy Screening 05/20/2025 05/20/2024, 01/22/2024 Respiratory Syncytial Virus (RSV) Immunization (Adult) (1 - 1-dose 75+ series) 01/22/2059 TdaP Immunization Discontinued 11/03/2006 DTaP/Tdap/Td Immunization Discontinued 2013, 11/03/2006 Pneumococcal Immunization Combined Completed 08/17/2021 Meningococcal Immunization (ACWY) Aged Out No longer eligible based on patient's age to complete this topic Rotavirus Immunization Aged Out No lo nger eligible based on patient's age to complete this topic Procedures Procedure Name Priority Date/Time Associated Diagnosis Comments XR LUMBAR SPINE 2 OR 3 VIEWS Routine 05/29/2024 4:55 PM INFANTRY ASSAULTMAN Lumbar radiculopathy CT ABDOMEN PELVIS W/ CONTRAST Stat with Interpretation 05/20/2024 11:26 PM INFANTRY ASSAULTMAN BLUE TOP TUBE STAT 05/20/2024 9:44 PM INFANTRY ASSAULTMAN CBC WITH AUTO DIFFERENTIAL STAT 05/20/2024 9:44 PM INFANTRY ASSAULTMAN EXTRA TUBES STAT 05/20/2024 9:44 PM INFANTRY ASSAULTMAN HUMAN CHORIONIC GONADOTROPIN SCRN SERUM STAT 05/20/2024 9:44 PM INFANTRY ASSAULTMAN URINALYSIS REFLEX IF INDICATED BY ABNORMAL RESULTS STAT 05/20/2024 9:44 PM INFANTRY ASSAULTMAN COMPLETE BLOOD COUNT (CBC) WITH DIFF STAT 05/20/2024 9:44 PM INFANTRY ASSAULTMAN CMP (COMPREHENSIVE METABOLIC PANEL) STAT 05/20/2024 9:44 PM INFANTRY ASSAULTMAN EMG Routine 03/27/2024 12:00 AM INFANTRY ASSAULTMAN Type 2 diabetes mellitus with diabetic polyneuropathy, with long-term current use of insulin (HCC) POCT GLYCOSYLATED HEMOGLOBIN Routine 01/10/2024 10:34 AM CDT Type 2 diabetes mellitus with diabetic polyneuropathy, with long-term current use of insulin (HCC) from Last 3 Months or Most Recently Relevant to Health Maintenance Results * XR LUMBAR SPINE 2 OR 3 VIEWS (05/29/2024 4:55 PM INFANTRY ASSAULTMAN) Anatomical Region Laterality Modality Spine, L-spine N/A Digital Radiogra phy 05/30/2024 8:28 AM INFANTRY ASSAULTMAN Impressions 05/30/2024 8:31 AM INFANTRY ASSAULTMAN IMPRESSION: Mild diffuse lumbar degenerative disc disease. Narrative 05/30/2024 8:31 AM INFANTRY ASSAULTMAN EXAM DESCRIPTION: XR LUMBAR SPINE 2 OR 3 VIEWS REASON FOR STUDY: pt c/o lower back pain x 1 month, pt doc believe bulging disc, pt had recent kidney stones, no surgery FINDINGS: Three views submitted with comparison 05/20/2024. No acute fracture. Alignment is normal. There is mild diffuse lumbar degenerative disc disease. There is mild levocurvature of the lumbar spine. Intrauterine device, arterial atherosclerosis and surgical clips are noted. THIS IS AN ELECTRONICALLY VERIFIED FINAL REPORT 05/30/2024 8:28 AM - Electronically signed by Luis Ricks M.D. MF: [id number] Report ID: [id number] Reading Location: [place] [address] Procedure Note Luis Ricks MD - 05/30/2024 EXAM DESCRIPTION: XR LUMBAR SPINE 2 OR 3 VIEWS REASON FOR STUDY: pt c/o lower back pain x 1 month, pt doc believe bulging disc, pt had recent kidney stones, no surgery FINDINGS: Three views submitted with comparison 05/20/2024. No acute fracture. Alignment is normal. There is mild diffuse lumbar degenerative disc disease. There is mild levocurvature of the lumbar spine. Intrauterine device, arterial atherosclerosis and surgical clips are noted. THIS IS AN ELECTRONICALLY VERIFIED FINAL REPORT 05/30/2024 8:28 AM - Electronically signed by Luis Ricks M.D. MF: MF Report ID: [id number] Reading Location: [id number] IMPRESSION: Mild diffuse lumbar degenerative disc disease. us Chayito Sloan SPOOL CARRIER, GREGORY IMG DIAGNOSTIC ORDERABLES Final Result * CT ABDOMEN PELVIS W/ CONTRAST (05/20/2024 11:26 PM INFANTRY ASSAULTMAN) Anatomical Region Laterality Modality Abdomen N/A Computed Tomogra phy 05/20/2024 11:4 9 PM INFANTRY ASSAULTMAN Impressions 05/20/2024 11:52 PM INFANTRY ASSAULTMAN IMPRESSION: No acute finding in the abdomen or pelvis. Bilateral punctate nonobstructive renal calculi. Pancreatic head calcifications representing sequela of chronic pancreatitis. Narrative 05/20/2024 11:52 PM INFANTRY ASSAULTMAN EXAM DESCRIPTION: CT ABDOMEN PELVIS W/ CONTRAST REASON FOR STUDY: c/o bilateral low back pain x 3 weeks, worsening x 5 days. HX: DM, GERD, Pancreatitis, Hepatic steatosis, Kidney stones TECHNIQUE: CT scan of the abdomen and pelvis performed with intravenous and without oral contrast using helical scanning technique with dynamic intravenous contrast injection. Reconstructed coronal and sagittal MPR images reviewed. All images stored on PACS. Automated exposure control was used as a dose optimization technique for this examination. CONTRAST TYPE/DOSE: 100mL of IOPAMIDOL 76 % IV SOLN injected via Intravenous COMPARISON: No prior studies are available for comparison at time of this dictation. FINDINGS: LOWER CHEST: Mild opacity in the dependent lungs most likely represents subsegmental atelectasis. No pleural effusion identified. LIVER: Normal size. No identified cystic or solid masses. GALLBLADDER: Surgically absent. BILE DUCTS: No intrahepatic or extrahepatic ductal dilatation. Trace pneumobilia is likely from prior sphincterotomy. SPLEEN: Normal size. No focal lesions. PANCREAS: There is calcification in the region of the pancreatic head which is most likely sequela of prior pancreatitis. No evidence acute pancreatitis. No ductal dilation or discrete mass. ADRENALS: Normal. KIDNEYS/URINARY TRACT: Punctate nonobstructive bilateral nephrolithiasis. No hydronephrosis or hydroureter. The urinary bladder is unremarkable. GI: Mild distal esophageal wall thickening is a nonspecific finding. Trace sliding hiatal hernia. The stomach is gxwl-qm-arkmllggvo distended. No evidence of small-bowel obstruction. Normal appendix. No significant diverticulosis. PERITONEUM: No ascites or free air. RETROPERITONEUM: No mass or adenopathy. REPRODUCTIVE: Multiple nabothian cysts. Intrauterine device appears normally positioned. No adnexal mass. Simple appearing right adnexal follicle measuring 3.4 cm. VASCULATURE: No abdominal aortic aneurysm. MUSCULOSKELETAL: Partially visualized median sternotomy wires. There is subcutaneous induration anterior to the sternotomy wires. 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 Clinical correlation recommended. Degenerative changes of the lumbar spine are noted most pronounced at L5-S1 with partially calcified disc bulge. OTHER: Small fat containing midline ventral hernia slightly inferior to the xiphoid process. THIS IS AN ELECTRONICALLY VERIFIED FINAL REPORT 05/20/2024 11:49 PM - Electronically signed by Arthur Amaral M.D. MM: MM Report ID: [id number] Reading Location: [place] [address] Procedure Note Arthur Amaral MD - 05/20/2024 EXAM DESCRIPTION: CT ABDOMEN PELVIS W/ CONTRAST REASON FOR STUDY: c/o bilateral low back pain x 3 weeks, worsening x 5 days. HX: DM, GERD, Pancreatitis, Hepatic steatosis, Kidney stones TECHNIQUE: CT scan of the abdomen and pelvis performed with intravenous and without oral contrast using helical scanning technique with dynamic intravenous contrast injection. Reconstructed coronal and sagittal MPR images reviewed. All images stored on PACS. Automated exposure control was used as a dose optimization technique for this examination. CONTRAST TYPE/DOSE: 100mL of IOPAMIDOL 76 % IV SOLN injected via Intravenous COMPARISON: No prior studies are available for comparison at time of this dictation. FINDINGS: LOWER CHEST: Mild opacity in the dependent lungs most likely represents subsegmental atelectasis. No pleural effusion identified. LIVER: Normal size. No identified cystic or solid masses. GALLBLADDER: Surgically absent. BILE DUCTS: No intrahepatic or extrahepatic ductal dilatation. Trace pneumobilia is likely from prior sphincterotomy. SPLEEN: Normal size. No focal lesions. PANCREAS: There is calcification in the region of the pancreatic head which is most likely sequela of prior pancreatitis. No evidence acute pancreatitis. No ductal dilation or discrete mass. ADRENALS: Normal. KIDNEYS/URINARY TRACT: Punctate nonobstructive bilateral nephrolithiasis. No hydronephrosis or hydroureter. The urinary bladder is unremarkable. GI: Mild distal esophageal wall thickening is a nonspecific finding. Trace sliding hiatal hernia. The stomach is ggsb-yc-fkpyylbbir distended. No evidence of small-bowel obstruction. Normal appendix. No significant diverticulosis. PERITONEUM: No ascites or free air. RETROPERITONEUM: No mass or adenopathy. REPRODUCTIVE: Multiple nabothian cysts. Intrauterine device appears normally positioned. No adnexal mass. Simple appearing right adnexal follicle measuring 3.4 cm. VASCULATURE: No abdominal aortic aneurysm. MUSCULOSKELETAL: Partially visualized median sternotomy wires. There is subcutaneous induration anterior to the sternotomy wires. 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 Clinical correlation recommended. Degenerative changes of the lumbar spine are noted most pronounced at L5-S1 with partially calcified disc bulge. OTHER: Small fat containing midline ventral hernia slightly inferior to the xiphoid process. THIS IS AN ELECTRONICALLY VERIFIED FINAL REPORT 05/20/2024 11:49 PM - Electronically signed by Arthur Amaral M.D. MM: MM Report ID: [id number] Reading Location: [place] [address] IMPRESSION: No acute finding in the abdomen or pelvis. Bilateral punctate nonobstructive renal calculi. Pancreatic head calcifications representing sequela of chronic pancreatitis. us Donte Palomares DO IMG CT ORDERABLES Final Result * (ABNORMAL) Urinalysis Reflex if Indicated by Abnormal Results (05/20/2024 9:44 PM INFANTRY ASSAULTMAN) SPECIFIC GRAVITY 1.010 1.003 - 1.030 05/20/2024 10:38 PM INFANTRY ASSAULTMAN [facility] URINE PH 7.0 5.0 - 9.0 05/20/2024 10:38 PM INFANTRY ASSAULTMAN [facility] WBC ESTERASE Negative Negative 05/20/2024 10:38 PM INFANTRY ASSAULTMAN [facility] NITRITE Negative Negative 05/20/2024 10:38 PM INFANTRY ASSAULTMAN [facility] PROTEIN, RANDOM URINE 100 mg/dL(A) Negative 05/20/2024 10:38 PM INFANTRY ASSAULTMAN [facility] URINE GLUCOSE, QUAL 250 mg/dL(A) Negative 05/20/2024 10:38 PM INFANTRY ASSAULTMAN [facility] URINE KETONES Negative Negative 05/20/2024 10:38 PM INFANTRY ASSAULTMAN [facility] UROBILINOGEN Normal Normal mg/dL 05/20/2024 10:38 PM INFANTRY ASSAULTMAN [facility] URINE BLOOD 10 /uL(A) Negative eldon/ul 05/20/2024 10:38 PM INFANTRY ASSAULTMAN [facility] URINALYSIS COLOR Yellow 05/20/19 10:38 PM INFANTRY ASSAULTMAN [facility] URINALYSIS CLARITY Clear 05/20/2024 10:38 PM INFANTRY ASSAULTMAN [facility] WBC (Urine) 0-5 Negative, 0-5 /hpf 05/20/2024 10:38 PM INFANTRY ASSAULTMAN [facility] URINE RBC'S 0-2 Negative, 0-2 /hpf 05/20/2024 10:38 PM INFANTRY ASSAULTMAN [facility] EPITHELIAL CELLS Moderate amount /lpf 05/20/2024 10:38 PM INFANTRY ASSAULTMAN [facility] BACTERIA, URINE Few(A) Negative /hpf 05/20/2024 10:38 PM INFANTRY ASSAULTMAN [facility] Urine URINE SPECIMEN / Unknown Non-Phlebotomy Collection / Unknown 05/20/2024 9:44 PM INFANTRY ASSAULTMAN 05/20/2024 10:03 PM INFANTRY ASSAULTMAN us Donte Palomares DO URINE ORDERABLES Final Result Performing Organization Address City/[facility] Co de Phone Number [facility] [address] [place] [address] * Blue Top Tube (05/20/2024 9:44 PM INFANTRY ASSAULTMAN) Blood No Phlebotomy Charged / Unknown 05/20/2024 9:44 PM INFANTRY ASSAULTMAN 05/20/2024 10:03 PM INFANTRY ASSAULTMAN us Donte Palomares DO HEMATOLOGY ORDERABLES F inal Result Performing Organization Address City/[facility]/ZIP Co de Phone Number [facility] [address] [place] [address] * (ABNORMAL) CBC with Auto Differential (05/20/2024 9:44 PM INFANTRY ASSAULTMAN) WBC 8.99 4.00 - 12.00 10(3)/mcL 05/20/2024 10:10 PM INFANTRY ASSAULTMAN [facility] RBC 5.39(H) 3.80 - 5.30 10(6)/[facility] 05/20/2024 10:[address] [facility] HEMOGLOBIN (HGB) 14.3 12.0 - 15.8 g/dL 05/20/2024 10:[address] [facility] HEMATOCRIT (HCT) 44.4 36.0 - 47.0 % 05/20/2024 10:[address] [facility] MCV 82.4 82.0 - 96.0 fL 05/20/2024 10:[address] [facility] MCH 26.5 26.0 - 34.0 pg 05/20/2024 10:[address] [facility] MCHC 32.2 31.0 - 36.0 g/dL 05/20/2024 10:[address] [facility] PLATELET COUNT 236 140 - 440 10(3)/[facility] 05/20/2024 10:[address] [facility] RDW 15.1 11.8 - 15.5 % 05/20/2024 10:[address] [facility] MPV 10.9 9.7 - 12.4 fL 05/20/2024 10:[address] [facility] NEUTROPHILS 57.0 47.0 - 73.0 % 05/20/2024 10:[address] [facility] LYMPHOCYTES 30.9 18.0 - 42.0 % 05/20/2024 10:[address] [facility] MONOCYTES 7.9 4.0 - 12.0 % 05/20/2024 10:[address] [facility] EOSINOPHILS 3.3 0.0 - 5.0 % 05/20/2024 10:10 PM INFANTRY ASSAULTMAN [facility] BASOPHILS 0.9 0.0 - 1.0 % 05/20/2024 10:10 PM INFANTRY ASSAULTMAN [facility] ABSOLUTE NEUTROPHILS 5.12 1.60 - 7.70 10(3)/[facility] 05/20/2024 10:10 PM INFANTRY ASSAULTMAN [facility] ABSOLUTE LYMPHOCYTES 2.78 1.30 - 3.20 10(3)/[facility] 05/20/2024 10:10 PM INFANTRY ASSAULTMAN [facility] ABSOLUTE MONOCYTES 0.71 0.20 - 1.00 10(3)/[facility] 05/20/2024 10:10 PM INFANTRY ASSAULTMAN [facility] ABSOLUTE EOSINOPHIL 0.30 0.00 - 0.40 10(3)/[facility] 05/20/2024 10:10 PM INFANTRY ASSAULTMAN [facility] ABSOLUTE BASOPHILS 0.08 0.00 - 0.10 10(3)/[facility] 05/20/2024 10:10 PM INFANTRY ASSAULTMAN [facility] NRBC PER 100 WBC 0 05/20/19 10:10 PM INFANTRY ASSAULTMAN [facility] Blood Venipuncture / Unknown 05/20/2024 9:44 PM INFANTRY ASSAULTMAN 05/20/2024 10:03 PM INFANTRY ASSAULTMAN us Donte Palomares DO HEMATOLOGY ORDERABLES F inal Result [facility] [address] [place] [address] * Human Chorionic Gonadotropin Scrn Serum (05/20/2024 9:44 PM INFANTRY ASSAULTMAN) PREG-HCG Negative 05/20/2024 10:32 PM INFANTRY ASSAULTMAN [facility] Blood Venipuncture / Unknown 05/20/2024 9:44 PM INFANTRY ASSAULTMAN 05/20/2024 10:03 PM INFANTRY ASSAULTMAN Donte Palomares DO CHEMISTRY ORDERABLES Fi nal Result [facility] [address] [place] [address] * (ABNORMAL) CMP (Comprehensive Metabolic Panel) (05/20/2024 9:44 PM INFANTRY ASSAULTMAN) SODIUM 139 136 - 145 mmol/L 05/20/2024 10:[address] [facility] POTASSIUM 4.6 3.5 - 5.1 mmol/L 05/20/2024 10:[address] [facility] CHLORIDE 105 98 - 107 mmol/L 05/20/2024 10:[address] [facility] CO2, VENOUS 22 22 - 30 mmol/L 05/20/2024 10:[address] [facility] ANION GAP 16.6 <18.0 mmol/L 05/20/2024 10:[address] [facility] GLUCOSE 175(H) 70 - 99 mg/dL 05/20/2024 10:[address] [facility] BUN 11 5 - 18 mg/dL 05/20/2024 10:[address] [facility] CREATININE, BLOOD 0.95 0.60 - 1.00 mg/dL 05/20/2024 10:[address] [facility] BUN/CREATININE RATIO 12 12 - 20 ratio 05/20/2024 10:[address] [facility] TOTAL PROTEIN 8.1 6.3 - 8.2 g/dL 05/20/2024 10:[address] [facility] ALBUMIN 3.6 3.5 - 5.0 g/dL 05/20/2024 10:[address] [facility] A/G RATIO 0.8(L) 1.0 - 2.2 05/20/2024 10:[address] [facility] CALCIUM 9.2 8.7 - 10.5 mg/dL 05/20/2024 10:[address] [facility] T BILI 0.2 0.2 - 1.2 mg/dL 05/20/2024 10:34 PM INFANTRY ASSAULTMAN [facility] SGOT (AST) 48(H) 5 - 34 U/L 05/20/2024 10:34 PM INFANTRY ASSAULTMAN [facility] SGPT (ALT) 38 0 - 55 U/L 05/20/2024 10:34 PM INFANTRY ASSAULTMAN [facility] ALKALINE PHOSPHATASE 94 40 - 150 U/L 05/20/2024 10:34 PM INFANTRY ASSAULTMAN [facility] GFR, ESTIMATED >60 >=60 05/20/2024 10:34 PM INFANTRY ASSAULTMAN [facility] Comment: Creatinine Clearance is the preferred criteria for selecting drug dose adjustments in renally impaired patients. The GFR is provided as additional pertinent clinical information. GFR is reported in mL/min/1.73 sq m. Calculation based on the Chronic Kidney Disease Epidemiology Collaboration (CKD- EPI) equation refit without adjustment for race. GFR, EST. >60 >=60 025 10:34 PM INFANTRY ASSAULTMAN [facility] GFR, EST. NONAFRICAN >60 >=60 05/20/2024 10:34 PM INFANTRY ASSAULTMAN [facility] Blood Venipuncture / Unknown 05/20/2024 9:44 PM INFANTRY ASSAULTMAN 05/20/2024 10:03 PM INFANTRY ASSAULTMAN us Donte Palomares DO CHEMISTRY ORDERABLES Fi nal Result [facility] [address] [place] [address] * EMG (03/27/2024 12:00 AM INFANTRY ASSAULTMAN) 03/27/2024 us Albert Olivera MD NEUROLOGY ORDERABLES V2 Marilyn l Result SCAN * (ABNORMAL) POCT GLYCOSYLATED HEMOGLOBIN (01/10/2024 10:34 AM CDT) HGB-A1C 10.1(A) 4 - 6 % Blood 01/10/2024 10:3 4 AM CDT Broderick Perez MD POINT OF CARE TESTING (MANUAL) F inal Result from Last 3 Months or Most Recently Relevant to Health Maintenance Insurance MEDICAID [place] Care Teams Tire Fixer Relationship Specialty Start Date End Date Sloan, SCOTT Stratton, NURSERY ATTENDANT [address] [place] [address] [place] [id number] PCP - General Family Medicine 11/22/23 Broderick Perez MD [address] [phone] Consulting Physician Endocrinology 01/02/24 Albert lOivera MD #[address] [place] [phone] Consulting Physician Neurology 01/23/24
--- OUTSIDE RECORDS SUMMARY | 2024-06-16 22:24 | XMS_ITS | Referral Summary ---
Author Organization [facility] Address [address] [place] [phone] Care Team Providers Care Real Time Operator Name Role Phone Dejuan Malcolm MD Unavailable Chayito Sloan NP Primary Care Provider [phone] Johan Rogel MD Unavailable Tomas Gray MD Unavailable [phone] Encounters Date Type Department Care Team Description 05/16/2024 Orders Only [facility] Medical [facility] Diabetes Endocrine Care at [address] [place] [address] Savanna Rogel, DO 05/16/2024 Telephone [facility] Medical Group Diabetes Endocrine Care at [place] [address] [place] [address] [address] [place] [address] Savanna Rogel, DO 05/02/2024 Telephone [facility] Medical [facility] Diabetes Endocrine Care at [address] [place] [address] Savanna Rogel, DO 04/29/2024 Telephone [facility] Medical Group Cardiology [address] [place] [address] Kathy Gallo NP 04/26/2024 10:55 AM CERTIFIED WELLNESS PROGRAM COORDINATOR Lab [facility] [address] [place] [address] Type 2 diabetes mellitus with other circulatory complication, with long-term current use of insulin (HCC) 04/22/2024 Telephone [facility] Primary Care at [address] [place] [phone] Savanna Rogel, 04/22/2024 Telephone [facility] Diabetes Endocrine Care at [address] [place] [phone] Savanna Rogel, 04/19/2024 11:30 AM CERTIFIED WELLNESS PROGRAM COORDINATOR Office Visit [facility] Diabetes Endocrine Care at [address] [place] [phone] Savanna Rogel, DO Type 2 diabetes mellitus with other circulatory complication, with long-term current use of insulin (HCC) (Primary Dx); Neuropathy (CMS/HCC); Hyperlipidemia associated with type 2 diabetes mellitus (HCC) 04/17/2024 Telephone [facility] Cardiology [address] [facility] [facility] [address] [place] [phone] Johan Rogel MD 04/11/2024 9:00 AM CERTIFIED WELLNESS PROGRAM COORDINATOR Ancillary Procedure [facility] Cardiology [address] [place] [phone] Palpitations 04/11/2024 10:00 AM CERTIFIED WELLNESS PROGRAM COORDINATOR Office Visit [facility] Cardiology [address] [place] [address] [address] [place] [phone] Kathy Gallo NP Coronary artery disease involving [place] coronary artery of [place] heart without angina pectoris (Primary Dx); Postoperative atrial fibrillation (CMS/HCC) (HCC); Palpitations; Hx of CABG; Type 2 diabetes mellitus with other circulatory complication, unspecified whether ferry terminal agent insulin use (HCC); BRANDIE (obstructive sleep apnea) from Last 3 Months Allergies No known active allergies Medications pancrelipase (CREON) 12,000 units of lipase capsuleIndication s:exocrine pancreatic insufficiency Take 2 capsules by mouth 3 (three) times a day with meals Active ergocalciferol (VITAMIN D) 50,000 unit capsule Take 1 capsule (50,000 Units total) by mouth once a week Active insulin glargine 100 unit/mL (3 mL) pen for injection Inject 25 Units under the skin 2 (two) times a day 15 mL 1 10/12/19 24 Active Additional Information Patient taking differently: 40 UnitssubcutaneousDaily, Indications: hyperglycemia, Reported on 04/19/2024 acetaminophen 500 mg capsuleIndication s:Pain Take 2 capsules (1,000 mg total) by mouth every 6 (six) hours as needed for pain 10/12/19 24 Active aspirin 81 mg enteric coated tabletIndications :prevention of thrombosis Take 1 tablet (81 mg total) by mouth daily 30 tablet 1 10/13/19 24 Active atorvastatin (LIPITOR) 40 mg tablet Take 1 tablet (40 mg total) by mouth daily 30 tablet 3 10/24/19 24 025 Active diclofenac sodium (VOLTAREN) 1 % gel Apply 2 g topically 3 (three) times a day To the affected leg 2 g 10/23/19 24 Active menthol-zinc oxide 0.44-20.6 % ointmentIndicatio ns:skin irritation Apply 1 Application topically 2 (two) times a day Active ascorbic acid, vitamin C, 250 mg tablet,chewableIn dications:immune support Take 1 tablet/chew tab by mouth daily as needed (immune support) Active TRUEplus Pen Needle 31 gauge x 5/16 needle USE TO INJECT INSULIN 4 TIMES A DAY DIRECTED 11/07/[address] (PROTONIX) 40 mg EC tablet Take 1 tablet (40 mg total) by mouth daily Active metFORMIN (GLUCOPHAGE) 500 mg tablet Take 2 tablets (1,000 mg total) by mouth 2 (two) times a day Active fenofibrate (TRIGLIDE) 160 mg tablet Take 1 tablet (160 mg total) by mouth daily Active albuterol HFA (PROVENTIL HFA,VENTOLIN HFA,PROAIR HFA) 90 mcg/actuation inhaler Inhale 2 puffs 03/26/[address] (CYMBALTA) 30 mg capsule Take 1 capsule (30 mg total) by mouth daily 03/21/20 24 Active gabapentin (NEURONTIN) 600 mg tablet Take 1 tablet (600 mg total) by mouth 3 (three) times a day 04/09/20 24 Active metoprolol XL (TOPROL-XL) 25 mg extended release tabletIndications :Coronary artery disease involving [place] coronary artery of [place] heart without angina pectoris Take 1 tablet (25 mg total) by mouth daily 90 tablet 3 04/11/20 24 025 Active clopidogreL (PLAVIX) 75 mg tablet Take 1 tablet (75 mg total) by mouth daily 90 tablet 2 04/11/20 24 025 Active Dexcom G7 Sensor device 1 Device continuously Change every 10 days. 10 each 3 04/19/20 24 Active insulin lispro (HumaLOG, ADMELOG) 100 unit/mL pen for injectionIndicati ons:type 2 diabetes mellitus Inject 60 Units under the skin 3 (three) times a day with meals 60 mL 3 05/16/19 25 Active Active Problems Problem Noted Date Diagnosed Date Nondisplaced fracture of med ial malleolus of left tibia, initial encounter for closed fracture 10/18/2023 Syncope and collapse 10/14/2023 S/P CABG (coronary artery bypass graft) 10/09/19 Sepsis without acute organ dysfunction Leukocytosis 10/05/2023 Hypertension 10/05/2023 Depression 10/05/2023 NSTEMI (non-ST elevated myocardial infarction) ( [facility]) 10/05/2023 Coronary artery disease invo lving [place] coronary artery of [place] heart without angina pectoris 10/04/2023 Morbid obesity with BMI of 40.0-44.9, adult 09/06 Chronic pancreatitis ([facility]) 10/04/2023 Kidney stones 10/04/2023 Type 2 diabetes mellitus, wi th long-term current use of insulin 10/04/2023 Dyslipidemia 10/04/2023 Obstructive sleep apnea 10/04/2023 Gastroesophageal reflux disease without esophagi tis 10/04/2023 Hepatic steatosis 10/04/2023 Psoriasis (a type of skin inflammation) 10/04/19 Mild asthma 10/04/2023 Bile duct stenosis 06/20/2023 Upper abdominal pain 06/19/2023 Resolved Problems Problem Noted Date Diagnosed Date Resolved Date Coronary artery disease of n ative heart with stable angina pectoris 10/05/2023 10/15/2023 Social History Tobacco Use Types Packs/Day Years Used Date Smoking Tobacco: Never Tobacco Cessation:Counseling Given: Not Answered OASIS D0700: Social Isolation Answer Da te Recorded Frequency of experiencing loneliness or isolatio n Never 01/04/2024 OASIS A1250: Transportation Answer Date Recorded Lack of Transportation (Medical) No 01/04/2024 Lack of Transportation (Non-Medical) No 01/04/2024 Patient Unable or Declines to Respond No 01/04/2024 OASIS B1300: Health Literacy Answer Rajan e Recorded Frequency of needing help to read materials from doctor or pharmacy Never 01/04/2024 [facility] Utilities Answer Date Recorded In the past 12 months has e [employer], [employer], oil, or water [employer] threatened to shut off services in your home? No 10/16/2023 Social Connection and Isolat ion Panel [NHANES] Answer Date Recorded In a typical week, how many times do you talk on the phone with family, friends, or neighbors? More than three times a week 10/16/2023 How often do you get togethe r with friends or relatives? More than three times a week 10/16/2023 How often do you attend chur ch or worship services? Never 10/16/2023 Do you belong to any clubs o r organizations such as evangelical groups, unions, fraternal or athletic groups, or school groups? No 10/16/2023 How often do you attend meet ings of the clubs or organizations you belong to? Never 10/16/2023 Are you , , di vorced, , never , or living with a partner? Living with partner 10/16/2023 AUDIT-C Answer Date Recorded Q1: How often [...] care, and heating? Not hard at all 10/16/2023 Hunger Vital Sign Answer Date Recorded Within the past 12 months, y ou worried that your food would run out before you got the money to buy more. Never true 10/16/19 24 Within the past 12 months, t he food you bought just didn't last and you didn't have money to get more. Never true 10/16/2023 PRAPARE - Transportation Answer Date Re corded In the past 12 months, has l ack of transportation kept you from medical appointments or from getting medications? No 10/06 In the past 12 months, has l ack of transportation kept you from meetings, work, or from getting things needed for daily living? No 10/16/2023 Housing Stability Vital Sign Answer Rajan e [...] place to sleep or slept in a alf (including now)? No 06/21/2023 Housing Stability Vital Sign Answer Rajan e Recorded In the last 12 months, was t here a time when you were not able to pay the mortgage or rent on time? No 10/16/2023 In the past 12 months, how m any times have you moved where you were living? 0 10/16/2023 At any time in the past 12 m [facility], were you homeless or living in a alf (including now)? No 10/16/2023 Personal Safety Answer Date Recorded Have you ever been in or are you currently in a harmful physical or emotional relationship or is someone making you feel afraid or unsafe? Denies 10/14/2023 Comments Unknown Sex and Gender Information Value Date Recorded Sex Assigned at Not on file Legal Sex Female 2:12 PM CDT Gender Identity Not on file Sexual Orientation Not on file Last Filed Vital Signs Vital Sign Reading Time Taken Comments Blood Pressure 124/84 04/19/2024 11:22 AM CERTIFIED WELLNESS PROGRAM COORDINATOR Pulse 98 04/19/2024 11:22 AM CERTIFIED WELLNESS PROGRAM COORDINATOR Temperature 35.8 C (96.5 F) 01/04/2024 10:50 AM CDT Respiratory Rate 20 01/04/2024 10:5 0 AM CDT Oxygen Saturation 95% 04/11/2024 10: 20 AM CERTIFIED WELLNESS PROGRAM COORDINATOR Inhaled Oxygen Concentration - - Weight 99.7 kg (219 lb 14.4 oz) 024 11:22 AM CERTIFIED WELLNESS PROGRAM COORDINATOR Height 149.9 cm (4' 11 ) 04/19/2024 11: 22 AM CERTIFIED WELLNESS PROGRAM COORDINATOR Body Mass Index 44.41 04/19/2024 11:22 AM CERTIFIED WELLNESS PROGRAM COORDINATOR Plan of Treatment Not on file Medical Devices Implanted Type Area Financial Systems Manager Device Identifier Shelf Expiration Date Model / Serial / Lot [employer] Low Profile Screws 4mm 40mm Modular Self Drill Self Tap [id number] - [id number] Implanted:Qty: 1 on 10/18/2023 by Mario Correa Jr., MD at [facility] Left: Ankle [employer] [id number]-40 / / Explanted Type Area Financial Systems Manager Device Identifier Shelf Expiration Date Model / Serial / Lot [employer] Schuster 5fr 9cm Pancreatic Stent [id number] - [id number] Implanted:Qty: 1 on 06/19/2023 by Dejuan Malcolm MD at [facility] Explanted:Qty: 1 on 06/21/2023 by Dejuan Malcolm MD at [facility] Stent [employer] 02/06/2028 [id number] / / [id number] [employer] Gina Wallflex 8mm 8.5fr 60mm 194cm Rapid Exchange Full Cover Closed [id number] - [id number] Implanted:Qty: 1 on 06/19/2023 by Dejuan Malcolm MD at [facility] Explanted:Qty: 1 on 06/21/2023 by Dejuan Malcolm MD at [facility] Stent N/A: Bile Duct [employer] Gina 02/07/2025 [id number] / / [id number] Procedures Procedure Name Priority Date/Time Associated Diagnosis Comments MCT - MOBILE CARDIAC TELEMETRY EVENT MONITOR Routine 04/26/2024 3:03 PM CERTIFIED WELLNESS PROGRAM COORDINATOR Palpitations EGFR Routine 04/26/2024 10:55 AM CERTIFIED WELLNESS PROGRAM COORDINATOR Type 2 diabetes mellitus with other circulatory complication, with long-term current use of insulin (HCC) BASIC METABOLIC PANEL Routine 04/26/2024 10:55 AM CERTIFIED WELLNESS PROGRAM COORDINATOR Type 2 diabetes mellitus with other circulatory complication, with long-term current use of insulin (HCC) C-PEPTIDE Routine 04/26/2024 10:55 AM CERTIFIED WELLNESS PROGRAM COORDINATOR Type 2 diabetes mellitus with other circulatory complication, with long-term current use of insulin (HCC) ALBUMIN CREATININE RATIO, URINE Routine 04/26/2024 10:55 AM CERTIFIED WELLNESS PROGRAM COORDINATOR Type 2 diabetes mellitus with other circulatory complication, with long-term current use of insulin (HCC) POCT HEMOGLOBIN A1C Routine 04/19/2024 1 1:59 AM CERTIFIED WELLNESS PROGRAM COORDINATOR Type 2 diabetes mellitus with other circulatory complication, with long-term current use of insulin (HCC) RETINAVUE SCANNER - OU - BOTH EYES Routine 04/19/2024 Type 2 diabetes mellitus with other circulatory complication, with long-term current use of insulin (HCC) LIPID PANEL Routine 10/04/2023 10:55 PM CDT from Last 3 Months or Most Recently Relevant to Health Maintenance Results * MCT Mobile Cardiac Telemetry Event Monitor (04/26/2024 3:03 PM CERTIFIED WELLNESS PROGRAM COORDINATOR) Anatomical Region Laterality Modality Electrocardiogra phy Narrative 04/26/2024 3:03 PM CERTIFIED WELLNESS PROGRAM COORDINATOR Images from the original result were not included. AMBULATORY ADJUSTER ARBITRATOR REPORT Patient Name: Gem Morales Date of : 1985 Requesting Physician: Johan Rogel M.D. Date of Interpretation: 04/26/24 Type of Monitor: 14 Day Monitor Date of the Study / Enrollment Period: 04/11/2024 to 04/24/2024 Indication: Palpitations Quality of the Study: Average. Total analysis time of 13 days, 6 hours, and 26 minutes. Interpretation: Predominant rhythm is sinus tachycardia. The average heart rate was 104 beats per minute. The minimum heart rate was 71 beats per minute. The maximum heart rate was 129 beats per minute. No evidence of atrial fibrillation, SVT, pauses, heart block, or ventricular tachycardia. The PAC burden is <1%. No PVCs. Patient reported 7 events during the monitoring period. Patient reported heart racing, chest pain, skipped beat, symptom other than listed. Three of these events correlated to sinus tachycardia with PACs. The remainder four events correlated to sinus tachycardia without arrhythmia. Heart rate range of 101 to 119 beats per minute during these symptomatic episodes. Conclusions: Predominant rhythm is sinus tachycardia with an average heart rate of 104 beats per minute. PAC burden of <1%. No other arrhythmias. Patient's symptoms correlate to sinus tachycardia with PACs and sinus tachycardia without arrhythmia. oJhan Rogel M.D., [facility] 04/26/24 Procedure Note Johan Rogel MD - 04/26/2024 Images from the original note were not included. AMBULATORY ADJUSTER ARBITRATOR REPORT Patient Name: Gem Morales Date of : 1985 Requesting Physician: Johan Rogel M.D. Date of Interpretation: 04/26/24 Type of Monitor: 14 Day Monitor Date of the Study / Enrollment Period: 04/11/2024 to 04/24/2024 Indication: Palpitations Quality of the Study: Average. Total analysis time of 13 days, 6 hours,and 26 minutes. Interpretation: Predominant rhythm is sinus tachycardia. The average heart rate was 104beats per minute. The minimum heart rate was 71 beats per minute. Themaximum heart rate was 129 beats per minute. No evidence of atrial fibrillation, SVT, pauses, heart block, orventricular tachycardia. The PAC burden is <1%. No PVCs. Patient reported 7 events during the monitoring period. Patient reportedheart racing, chest pain, skipped beat, symptom other than listed. Threeof these events correlated to sinus tachycardia with PACs. The remainderfour events correlated to sinus tachycardia without arrhythmia. Heart raterange of 101 to 119 beats per minute during these symptomatic episodes. Conclusions: Predominant rhythm is sinus tachycardia with an average heart rate of 104beats per minute. PAC burden of <1%. No other arrhythmias. Patient's symptoms correlate to sinus tachycardia with PACs and sinustachycardia without arrhythmia. Johan Rogel M.D., [facility] 04/26/24 Kathy Gallo NP CV CARDIAC [facility] Final Result * eGFR (04/26/2024 10:55 AM CERTIFIED WELLNESS PROGRAM COORDINATOR) eGFR >90 >=60 mL/min/1. 73 m2 Comment: Interpretive Data Reference Interval Normal >/= 90 mL/min/1.73m2 Mildly decreased* 60 - 89 mL/min/1.73m2 Mildly to moderately decreased 45 - 59 mL/min/1.73m2 Moderately to severely decreased 30 - 44 mL/min/1.73m2 Severely decreased 15 - 29 mL/min/1.73m2 Kidney Failure < 15 mL/min/1.73m2 *Relative to young adult level Estimated glomerular filtration rate is determined by the 2020 CKD-EPI equation recommended by the National Kidney Foundation (A Unifying Approach to GFR Estimation: Recommendations of the NKF-ASK Task Force on Reassessing the Inclusion of Race in Diagnosing Kidney Disease, JASN 2020). The CKD-EPI equation should not be used for patients with unstable renal function and has not been validated in children and those over 70. Current interpretive data was last reviewed 2021. Testing performed by: [address] [address] Blood 04/26/2024 10:5 5 AM CERTIFIED WELLNESS PROGRAM COORDINATOR 04/26/2024 6:01 PM CERTIFIED WELLNESS PROGRAM COORDINATOR Savanna Rogel DO LAB BLOOD ORDERABLES Final Result JUSTINE LAWRENCE ([place]) 1 [facility] Department of Laboratories [place], [place] [id number] * (ABNORMAL) Albumin Creatinine Ratio, Urine (04/26/2024 10:55 AM CERTIFIED WELLNESS PROGRAM COORDINATOR) Albumin Ur 933.1 mg/L Comment: Interpretive Data No reference range established. Current interpretive data was last revised 2018. Testing performed by: [address] [address] Creatinine Ur 55.6 mg/dL JUSTINE BRAVO ([place]IN[place]) Comment: Interpretive Data No reference range established. Current interpretive data was last revised 2018. Testing performed by: [address] [address] Albumin Creatinine Ratio, Ur 1,678(H) 1 - 29 mg/g JUST[facility] ([place]) Comment:Testing performed by : [facility], [address] [place] [address]., [address] Urine 04/26/2024 10:5 5 AM CERTIFIED WELLNESS PROGRAM COORDINATOR 04/26/2024 5:35 PM CERTIFIED WELLNESS PROGRAM COORDINATOR Savanna Rogel DO LAB URINE ORDERABLES Final Result Performing Organization Address City/[facility] Co de Phone Number JUSTINE BRAVO ([place]) 1 [place] [address] * C-peptide (04/26/2024 10:55 AM CERTIFIED WELLNESS PROGRAM COORDINATOR) Pathologist [facility] C-peptide 3.87 1.10 - 4.40 ng/mL Comment:Testing performed by : [facility], [address] [place] [address], [address] Blood 04/26/2024 10:5 5 AM CERTIFIED WELLNESS PROGRAM COORDINATOR 04/27/2024 5:39 PM CERTIFIED WELLNESS PROGRAM COORDINATOR Savanna Rogel DO LAB BLOOD ORDERABLES Final Result Performing Organization Address [facility] [place] de Phone Number JUSTINE BRAVO ([place]) 1 [facility] [place] [address] * Basic metabolic panel (04/26/2024 10:55 AM CERTIFIED WELLNESS PROGRAM COORDINATOR) Pathologist [facility] Sodium 137 135 - 145 mmol/L Comment:Testing performed by : [facility], [address] [place] [address]., [address] Potassium, pl 4.6 3.3 - 4.9 mmol/L [facility] ([place]) Comment:Testing performed by : [facility], [address] [place] [address]., [id number] Chloride 102 97 - 110 mmol/L [facility] ([place]) Comment:Testing performed by : [facility], [address] [place] [address], [id number] CO2 25 22 - 32 mmol/L [facility] ([place]) Comment:Testing performed by : [facility], [address] [place] [address]., [address] Anion gap 10 2 - 15 mmol/L JUSTINE [facility] ([place]) Comment:Testing performed by : [facility], [address] [place] [address]., [address] BUN 14 6 - 25 mg/dL JUSTINE [facility] ([place]) Comment:Testing performed by : [facility], [address] [place] [address]., [address] Creatinine 0.81 0.60 - 1.10 mg/dL JUSTINE BRAVO ([place]) Comment:Testing performed by : [facility], [address] [place] [address], [id number] Glucose 184 70 - 199 mg/dL JUSTINE BRAVO ([place]) Comment: Interpretive Data Fasting glucose >/= 126 mg/dl is diagnostic for diabetes. Fasting is defined as no caloric intake for at least 8 hours. Fasting glucose between 100 mg/dl to 125 mg/dl is diagnostic of prediabetes. In a patient with classic symptoms of hyperglycemia or hyperglycemic crisis, a random glucose >/= 200 mg/dl is diagnostic for diabetes. In the absence of unequivocal hyperglycemia, results should be confirmed by repeat testing. The classification and Diagnosis of Diabetes Diabetes Care 202; 46: S19-S40. Current interpretive data was last revised 2022. Testing performed by: [facility], [address] [place] [address]., [id number] Calcium 9.0 8.5 - 10.3 mg/dL JUSTINE BRAVO ([place]) Comment:Testing performed by : [address], [address] Blood 04/26/2024 10:5 5 AM CERTIFIED WELLNESS PROGRAM COORDINATOR 04/26/2024 5:35 PM CERTIFIED WELLNESS PROGRAM COORDINATOR Savanna Rogel DO LAB BLOOD ORDERABLES Final Result JUSTINE BRAVO ([place]) 1 [facility] Department of Laboratories [place], [place] [id number] * (ABNORMAL) POCT hemoglobin A1c (04/19/2024 11:59 AM CERTIFIED WELLNESS PROGRAM COORDINATOR) Hemoglobin A1C, POC 9.3 4.0 - 5.6 % Blood 04/19/2024 11:5 9 AM CERTIFIED WELLNESS PROGRAM COORDINATOR Betiok Jose Daniel Juan F [place] TEST ORDERABL ES Final Result * RetinaVue Scanner - OU - Both Eyes (04/19/2024) Anatomical Region Laterality Modality Head Fundus Photograp hy 04/19/2024 Savanna Rogel DO OPHTH PHOTOGRAPHY Final Res ult * (ABNORMAL) Lipid panel (10/04/2023 10:55 PM CDT) Cholesterol 165 30 - 199 mg/dL Comment: Interpretive Data Ages < or = 19 years Acceptable: <170 mg/dL Borderline high: 170-199 mg/dL High: >or= 200 mg/dL Ages > or = 20 years Desirable: <200 mg/dL Borderline high: 200-239 mg/dL High: >or= 240 mg/dL Literature References: 1. Expert Panel on Integrated Guidelines for Cardiovascular Health and Risk Reduction in Children and Adolescents. Pediatrics 2011;128:S213 2. NCEP Expert Panel. Circulation 2004;110:227 Current Interpretive Data was last revised on 2017. Triglycerides 253(H) <=149 mg/dL JUSTINE Comment: Interpretive Data Ages < or = 9 years Acceptable: <75 mg/dL Borderline high: 75-99 mg/dL High: >or= 100 mg/dL Ages 10 to 20 years Acceptable: <90 mg/dL Borderline high: 90-129 mg/dL High: >or= 130 mg/dL Ages > or = 20 years Desirable: <150 mg/dL Borderline high: 150-199 mg/dL High: 200-499 mg/dL Very high: >or= 499 mg/dL Literature References: 1. Expert Panel on Integrated Guidelines for Cardiovascular Health and Risk Reduction in Children and Adolescents. Pediatrics 2011;128:S213 2. NCEP Expert Panel. Circulation 2004;110:227 Current Interpretive Data was last revised on 2017. HDL 47 >=40 mg/dL JUSTINE PENA Comment: Interpretive Data Ages < or = 19 years Acceptable: >45 mg/dL Borderline low: 40-45 mg/dL Low: <40 mg/dL Ages > or = 20 years Desirable: >or= 60 mg/dL Low: <40 mg/dL Literature References: 1. Expert Panel on Integrated Guidelines for Cardiovascular Health and Risk Reduction in Children and Adolescents. Pediatrics 2011;128:S213 2. NCEP Expert Panel. Circulation 2004;110:227 Current Interpretive Data was last revised on 2017. LDL, calculated 67 <=129 mg/dL JUSTINE PENA Comment: Interpretive Data Ages < or = 19 years Acceptable: <110 mg/dL Borderline high: 110-129 mg/dL High: >or= 130 mg/dL Ages > or = 20 years Optimal: <100 mg/dL Near optimal: 100-129 mg/dL Borderline high: 130-159 mg/dL High: >160 mg/dL Literature References: 1. Expert Panel on Integrated Guidelines for Cardiovascular Health and Risk Reduction in Children and Adolescents. Pediatrics 2011;128:S213 2. NCEP Expert Panel. Circulation 2004;110:227 Current Interpretive Data was last revised on 2017. Non-HDL Cholesterol 118 mg/dL JUSTINE PENA Comment: Interpretive Data Ages < or = 19 years Acceptable: <120 mg/dL Borderline high: 120-144 mg/dL High: >145 mg/dL Ages > or = 20 years When triglycerides are >200 mg/dL, Non-HDL cholesterol is a secondary target of therapy with treatment goals that are 30 mg/dL greater than the LDL cholesterol target. Literature References: 1. Expert Panel on Integrated Guidelines for Cardiovascular Health and Risk Reduction in Children and Adolescents. Pediatrics 2011;128:S213 2. NCEP Expert Panel. Circulation 2004;110:227 Current Interpretive Data was last revised on 2017. Chol/HDL ratio 4 JUSTINE PENA Blood 10/04/2023 10:5 5 PM CDT 10/04/2023 11:01 PM CDT Karen Allen NP LAB BLOOD ORDERABLES Fin al Result JUSTINE PENA [address] Department [place] [address] from Last 3 Months or Most Recently Relevant to Health Maintenance Insurance [facility] Advance Directives For more information, please contact: [phone] * Full Code (Latest Code Status on File) Date Activated Date Inactivated Comments 10/18/2023 2:29 PM 10/23/2023 8:08 PM * Full Code Date Activated Date Inactivated Comments 10/14/2023 8:30 PM 10/18/2023 2:29 PM * Full Code Date Activated Date Inactivated Comments 10/04/2023 10:25 PM 10/12/2023 11:11 PM * Full Code Date Activated Date Inactivated Comments 06/20/2023 9:18 AM 06/21/2023 11:05 PM Care Teams Real Time Operator Relationship Specialty Start Date End Date Chayito Sloan NP [address] [place] [address] PCP - General Nurse Practitioner 08/29/23 Dejuan Malcolm MD [address] [facility] [address] [place] [address] Consulting Physician Gastroenterology 06/21/23 Johan Rogel MD [address] [facility] [address], [place] [address] Consulting Physician Interventional Cardiology 10/12/23 [place] [address] [address] [facility] [address] [place] [address] Consulting Physician Endocrinology Diabetes & Metabolism 10/12/23
--- OUTSIDE RECORDS SUMMARY | 2024-06-16 22:24 | XMS_ITS | Clinical Summary ---
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 Take 1 tablet [...] 10/05/2023 NSTEMI (non-ST elevated myocardial infarction) ( [facility]) 10/05/2023 Coronary artery disease invo lving squaxin coronary artery 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 10/04/2023 Morbid obesity with BMI of 40.0-44.9, adult 09/06 Chronic pancreatitis ([facility]) 10/04/2023 Kidney stones 10/04/2023 Type 2 diabetes [...] heart with stable angina pectoris 10/05/2023 10/15/2023 Encounters Date Type Department Care Team Description 05/16/2024 Orders Only [facility] Diabetes Endocrine Care at [address] [place] [phone] Savanna Rogel, DO 05/16/2024 Telephone [facility] Diabetes Endocrine Care at [address] [place] [phone] Savanna Rogel, DO 05/02/2024 Telephone [facility] Diabetes Endocrine Care at [address] [place] [phone] Savanna Rogel, DO 04/29/2024 Telephone [facility] Cardiology [address] [facility] [address] [place] [phone] Kathy Gallo NP 04/26/2024 10:55 AM [employer] Lab [facility] [address] [place] [phone] Type 2 diabetes mellitus with other circulatory complication, with long-term current use of insulin (HCC) 04/22/2024 Telephone [facility] Primary Care at [address] [place] [phone] Savanna Rogel, DO 04/22/2024 Telephone [facility] Diabetes Endocrine Care at [address] [place] [phone] Savanna Rogel, 04/19/2024 11:30 AM [employer] Office Visit [facility] Diabetes Endocrine Care at [address] [place] [phone] Savanna Rogel, DO Type 2 diabetes mellitus with other circulatory complication, with long-term current use of insulin (HCC) (Primary Dx); Neuropathy (CMS/HCC); Hyperlipidemia associated with type 2 diabetes mellitus (HCC) 04/17/2024 Telephone [facility] Cardiology 10 [facility] [address] [place] [phone] Johan Rogel MD 04/11/2024 10:00 AM [employer] Office Visit [facility] Cardiology [address] [facility] [address] [place] [phone] Kathy Gallo NP 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 (Primary Dx); Postoperative atrial fibrillation (CMS/HCC) (HCC); Palpitations; Hx of CABG; Type 2 diabetes mellitus with other circulatory complication, unspecified whether skilled nursing insulin use (HCC); BRANDIE (obstructive sleep apnea) 04/11/2024 9:00 AM [employer] Ancillary Procedure [facility] Cardiology [address] [facility] [address] [place] [phone] Palpitations from Last 3 Months Surgical History Surgery Date Site/Laterality Comments CYSTOSCOPY W/ LASER LITHOTRIPSY 05/08/2018 - 05/07/2019 TOE AMPUTATION 05/08/2021 - 05/07/2022 Left FOOT SURGERY 05/08/2023 - 05/07/2024 Right bone removal CHOLECYSTECTOMY 05/08/2022 - 05/07/2023 Medical History Medical History Date Comments Diabetes mellitus (HCC) Delayed emergence from general anesthesia Pancreatitis Hyperlipidemia Asthma Type 2 diabetes mellitus (HCC) Kidney stone Arthritis Family History Medical History Relation Name Comments Diabetes Father Relation Name Status Comments Brother Alive Father Alive Mother Alive Social History Tobacco [...] materials from doctor or pharmacy Never 01/04/2024 [facility] Utilities Answer Date Recorded In the past 12 months has [employer], oil, or water [employer] threatened to shut off services in your [...] 10/16/2023 How often do you attend chur or rastafarian services? Never 10/16/2023 Do you belong to any clubs o r organizations such as restorationist groups, unions, fraternal or athletic groups, or [...] place to sleep or slept in a long term (including now)? No 06/21/2023 Housing Stability Vital Sign Answer Rajan e Recorded In the last 12 months, was t here a time when you were not able to pay the mortgage or rent on time? No 10/16/2023 In the past 12 months, how m any times have you moved where you were living? 0 10/16/2023 [facility] time [facility] were you [facility] or living in a long term (including now)? No 10/16/2023 Personal Safety Answer [...] on file Sexual Orientation Not on file Obstetrics History Last Filed Vital Signs Vital Sign Reading Time Taken Comments Blood Pressure 124/84 04/19/2024 11:22 AM [employer] Pulse 98 04/19/2024 11:22 AM [employer] Temperature 35.8 C (96.5 F) 01/04/2024 10:50 AM CDT Respiratory Rate 20 01/04/2024 10:5 0 AM CDT Oxygen Saturation 95% 04/11/2024 10: 20 AM [employer] Inhaled Oxygen Concentration - - Weight 99.7 kg (219 lb 14.4 oz) 024 11:22 AM [employer] Height 149.9 cm (4' 11 ) 04/19/2024 11: 22 AM [employer] Body Mass Index 44.41 04/19/2024 11:22 AM [employer] Plan of Treatment Health Maintenance Due Date Last Done Comments Breast Cancer Screening-Mammogram 1984 Cervical Cancer Screening 1984 Depression Screening 1984 Hepatitis C Screening 1984 Varicella Vaccines (1 of 2 - 13+ 2-dose series) 01/22/1997 Hepatitis B Screening 01/22/2002 Regular Well Visit/Exam 18-64 01/22/2002 DTaP/Tdap/Td Vaccine (3 - Td or Tdap) 06/22/2023 06/22/2013, 11/03/2006 Covid-19 Vaccine (3 - 2023-2 5 season) 2024 08/17/2021, 07/20/2021 Influenza Vaccine (#1) 2024 Lipid Panel 10/03/2024 10/04/2023 Hemoglobin A1C 10/18/2024 04/19/2024, 10/04/2023 Dilated Eye Exam 04/19/2025 04/19/2024 Foot Exam 04/19/2025 04/19/2024 Albumin Creatinine Ratio, Urine 04/26/2025 eGFR 04/26/2025 04/26/2024, 01/06, 01/22/2024, Additional history exists HPV Vaccines Completed 05/04/2007, 12/08, 11/03/2006 Pneumococcal vaccine <65 Completed 08/17/2021 Medical Devices Implanted Type Area Trimmer Machine Operator Device Identifier Shelf Expiration Date Model / Serial / Lot [employer] Low Profile Screws 4mm 40mm Modular Self Drill Self Tap [id number] - [id number] Implanted:Qty: 1 on 10/18/2023 by Mario Correa Jr., MD at [facility] Left: Ankle [employer] [id number]-40 / / Explanted Type Area Trimmer Machine Operator Device Identifier Shelf Expiration Date Model / Serial / Lot [employer] Schuster 5fr 9cm Pancreatic Stent [id number] - [id number] Implanted:Qty: 1 on 06/19/2023 by Dejuan Malcolm MD at [facility] Explanted:Qty: 1 on 06/21/2023 by Dejuan Malcolm MD at [facility] Stent [employer] 02/06/2028 [id number] / / [id number] [employer] Gina Wallflex 8mm 8.5fr 60mm 194cm Rapid Exchange Full Cover Closed [id number] - [id number] Implanted:Qty: 1 on 06/19/2023 by Dejuan Malcolm MD at [facility] Explanted:Qty: 1 on 06/21/2023 by Dejuan Malcolm MD at [facility] Stent N/A: Bile Duct [employer] Gina 02/07/2025 [id number] / / [id number] Procedures Procedure Name Priority Date/Time Associated Diagnosis Comments MCT - MOBILE CARDIAC TELEMETRY EVENT MONITOR Routine 04/26/2024 3:03 PM [employer] Palpitations EGFR Routine 04/26/2024 10:55 AM [employer] Type 2 diabetes mellitus with other circulatory complication, with long-term current use of insulin (HCC) BASIC METABOLIC PANEL Routine 04/26/2024 10:55 AM [employer] Type 2 diabetes mellitus with other circulatory complication, with long-term current use of insulin (HCC) C-PEPTIDE Routine 04/26/2024 10:55 AM [employer] Type 2 diabetes mellitus with other circulatory complication, with long-term current use of insulin ([facility]) ALBUMIN CREATININE RATIO, URINE Routine 04/26/2024 10:55 AM [employer] Type 2 diabetes mellitus with other circulatory complication, with long-term current use of insulin (HCC) POCT HEMOGLOBIN A1C Routine 04/19/2024 1 1:59 AM [employer] Type 2 diabetes mellitus with other circulatory [...] Cardiac Telemetry Event Monitor (04/26/2024 3:03 PM [employer]) Anatomical Region Laterality Modality Electrocardiogra phy Narrative 04/26/2024 3:03 PM [employer] Images from the original result were not included. AMBULATORY PHYSICAL INSTRUCTOR REPORT Patient Name: Gem Morales Date of [...] with PACs and sinus tachycardia without arrhythmia. Johan Rogel M.D., [facility] 04/26/24 Procedure Note Johan Rogel MD - 04/26/2024 Images from the original note were not included. AMBULATORY PHYSICAL INSTRUCTOR REPORT Patient Name: Gem Morales Date of [...] and sinustachycardia without arrhythmia. Johan Rogel M.D., [facility] 04/26/24 Kathy Gallo NP CV C[facility]IAC [facility] GREGG CM Final Result * eGFR (04/26/2024 10:55 AM [employer]) eGFR >90 >=60 mL/min/1. 73 m2 Comment: [...] was last reviewed 2021. Testing performed by: [facility], [address] [place] [address]., [address] Blood 04/26/2024 10:5 5 AM [employer] 04/26/2024 6:01 PM [employer] Savanna Rogel DO LAB BLOOD ORDERABLES Final Result JUSTINE BRAVO (NINI) 1 [facility] Department [place] [address] * (ABNORMAL) Albumin Creatinine Ratio, Urine (04/26/2024 10:55 AM [employer]) Albumin Ur 933.1 mg/L Comment: Interpretive Data No reference range established. Current interpretive data was last revised 2018. Testing performed by: [address] [address] Creatinine Ur 55.6 mg/dL JUSTINE BRAVO (NINI) Comment: Interpretive Data No reference range established. Current interpretive data was last revised 2018. Testing performed by: [address] [address] Albumin Creatinine Ratio, Ur 1,678(H) 1 - 29 mg/g JUSTINE BRAVO (NINI) Comment:Testing performed by : [address] [address] Urine 04/26/2024 10:5 5 AM [employer] 04/26/2024 5:35 PM [employer] Savanna Rogel DO LAB URINE ORDERABLES Final Result JUSTINE BRAVO (NINI) 1 [facility] [place] [address] * C-peptide (04/26/2024 10:55 AM [employer]) C-peptide 3.87 1.10 - 4.40 ng/mL Comment:Testing performed by : [facility], [address] [place]., [address] Blood 04/26/2024 10:5 5 AM [employer] 04/27/2024 5:39 PM [employer] Savanna Rogel DO LAB BLOOD ORDERABLES Final Result Performing Organization Address [facility] Co de Phone Number JUSTINE BRAVO (NINI) 1 [facility] [place] [address] * Basic metabolic panel (04/26/2024 10:55 AM [employer]) Pathologist [facility] Sodium 137 135 - 145 mmol/L Comment:Testing performed by : [address] [address] Potassium, pl 4.6 3.3 - 4.9 mmol/L [facility] (NINI) Comment:Testing performed by : [facility], [address] [place] [address], [address] Chloride 102 97 - 110 mmol/L [facility] (NINI) Comment:Testing performed by : [address], [address] CO2 25 22 - 32 mmol/L [facility] (NINI) Comment:Testing performed by : [address], [address] Anion gap 10 2 - 15 mmol/L [facility] (NINI) Comment:Testing performed by : [address], [address] BUN 14 6 - 25 mg/dL [facility] (NINI) Comment:Testing performed by : [address] [address] Creatinine 0.81 0.60 - 1.10 mg/dL JUSTINE BRAVO (NINI) Comment:Testing performed by : [address] [address] Glucose 184 70 - 199 mg/dL JUSTINE [...] classification and Diagnosis of Diabetes Diabetes Care 2021; 46: S19-S40. Current interpretive data was last revised 2022. Testing performed by: [address] [address] Calcium 9.0 8.5 - 10.3 mg/dL JUSTINE BRAVO (NINI) Comment:Testing performed by : [address] [address] Blood 04/26/2024 10:5 5 AM [employer] 04/26/2024 5:35 PM [employer] Savanna Rogel DO LAB BLOOD ORDERABLES Final Result JUSTINE BRAVO (MCCLELLAN) 1 [facility] Department [place] [address] * (ABNORMAL) POCT hemoglobin A1c (04/19/2024 11:59 AM [employer]) Hemoglobin A1C, POC 9.3 4.0 - 5.6 % Blood 04/19/2024 11:5 9 AM [employer] Savanna Rogel DO POINT OF CARE TEST ORDERABL ES Final [...] on 2017. Triglycerides 253(H) <=149 mg/dL JUSTINE PENA Comment: Interpretive Data Ages [...] LAB BLOOD ORDERABLES Fin al Result JUSTINE [address] Department [place] [address] from Last 3 Months or Most Recently Relevant to Health Maintenance Insurance [facility] [facility] Advance Directives For more information, please contact: [phone] * Full Code (Latest Code Status on File) Date Activated Date Inactivated Comments 10/18/2023 2:29 PM 10/23/2023 8:08 PM * Full Code Date Activated Date Inactivated Comments 10/14/2023 8:30 PM 10/18/2023 2:29 PM * Full Code Date Activated Date Inactivated Comments 10/04/2023 10:25 PM 10/12/2023 11:11 PM * Full Code Date Activated Date Inactivated Comments 06/20/2023 9:18 AM 06/21/2023 11:05 PM Care Teams Network Security Architect Relationship Specialty Start Date End Date Chayito Sloan NP [address] [place] [address] PCP - General Nurse Practitioner 08/29/23 Dejuan Malcolm MD [address] [place] [address] Consulting Physician Gastroenterology 06/21/23 Johan Rogel MD [address] [facility] [address] [address] Consulting Physician Interventional Cardiology 10/12/23 [place] [address] [address] [facility] [address] [place] [address] Consulting Physician Endocrinology Diabetes & Metabolism 10/12/23
--- OUTSIDE RECORDS SUMMARY | 2024-06-16 22:24 | XMS_ITS | Patient Health Record ---
Author Organization [facility] Address [address] [place] [address] Care Team Providers Care Pulp Drier Name Role Phone Darin SHAH, Alissa Primary Care Provider Unavail able MIQUEL CERDA, JAYANT Unavailable Oliver SHAH, Lacho Unavailable Unavailable NANDO SHAH, BIALEY Unavailable ALLERGIES No Known Allergies REASON FOR REFERRAL Reason EUS to assess pancre atic parenchyma for stone burden/chronic pancreatitis Scheduled for 09/11/23 1100 Diagnosis 1 Other chronic pancre atitis (K86.1) Diagnosis 2 Epigastric pain (R10 .13) Referral Organization [facility] Referring Provider First Name JAYANT Referring Provider Last Name MIQUEL Referring Provider Speciality Gastroente rology Referred Organization [facility] Referred Provider Wang Tijerina Referred Address [address] [facility] [address],[place], [id number], Referred Provider Specialty Gastroentero logy Procedure 1 ENDOSCOPIC ULTRASOUN D EXAM (38395) Referral Priority Routine Referral Appointment Date 09/11/2023 MEDICATIONS Medication SIG (Take, Route, Frequency, Duration) Notes Start Date End Date Status Lantus 40units at [facility] Activ e Creon [id number] UNIT as directed Orall y Take 2 with meals. Max 6/day for 30 days Active HumaLOG Active Gabapentin 600 MG 1 tablet Orally thre e times a day Active PROBLEMS Problem Type ICD Code Onset Dates Problem Status W/U Status Risk SNOMED Code Notes Problem Other chronic pancreatitis (K86.1) Active confirmed Chronic pancreatitis (580508173) Encounters Encounter Location Date Provider Diagnosis [facility] - Op [address] [facility] Sched[facility] [place], [place] [id number] 06/19/2023 BAILEY ALIPERTI [facility] - Op [address] [facility] Scheduling [place], [place] [phone] 06/21/2023 BAILEY ALIPERTI [facility] - Op [address] [facility] Scheduling [place], [place] [phone] 10/18/2023 BAILEY ALIPERTI [facility] - Op [address] [facility] Scheduling [place], [place] [phone] 10/20/2023 BAILEY ALIPERTI [facility] - Op [address] GI Scheduling [place], [place] [phone] 10/20/2023 BAILEY ALIPERTI [facility] [address] [place] [address] 09/22/2023 JAYANT LAFLEUR PLAN OF TREATMENT Pending Test Test Name Order Date Endoscopic Retrograde Cholangiopancreato graphy (ERCP) 05/11/2023 Endoscopic Retrograde Cholangiopancreato graphy (ERCP) 09/22/2023 Insurance Providers Payer Name Payer Address Payer Phone Subscriber Number Group Number Insured Name Patient Relationship to Insured Coverage Start Date Coverage End Date [address] [id number] Gem Morales Self - patient is the insured MEDICAL (GENERAL) HISTORY Medical History History ICD Code diabetes mellitus anxiety kidney stones Surgical History Surgery Date(Month/Year) tonsillectomy toe amputation cholecystectomy
[2024-06-16 22:32] VITALS: BP 168/88; PULSE 101; RESP 17; TEMP 36.4; O2SAT 97
[2024-06-16 22:36] VITALS: O2SAT 97
--- NOTE | 2024-06-16 22:40 | ED_ITS ---
HPI - URI/Sore Throat General Chief Complaint: Upper Respiratory Infection Stated Complaint: flu Time Seen by Provider: 06/16/24 22:33 Source: patient and family Mode of arrival: ambulatory Limitations: no limitations History of Present Illness HPI Narrative: Patient presents with flu-like/upper respiratory infection like symptoms. She has had a cough and congestion. She visited urgent care on Monday but her viral swab was negative. Multiple family members have tested positive for the flu in the past 1-2 weeks.Patient reports that her mother, with whom she lives, has a sinus infection and pneumonia and also had a client who ended up hospitalized due to the flu. She also notes that she is short of breath although with the cough, not at rest. She is having epigastric abdominal pain and has a history of pancreatitis although she states pain is nonradiating; s/p cholecystectomy. She is also having chest pain but states that it feels different than previous chest pain and believes it is secondary to the cough. Her cough is also causing her to have a sore throat. Her last bowel movement was before presenting to the emergency department she denies any diarrhea or constipation. She has a history of neuropathy. Not on a diuretic currently. She was dizzy earlier though states this has resolved. She had a triple bypass performed in October 2023 at [facility] after undergoing cardiac catheterization; her cigarette carton sealer was Dr. Hooks there but she follows with shipping support clerk Dr. Rogel currently. She has been running a low-grade fever, 100 point something and has been trialing Tylenol, cough medicine, and decongestant. She denies any nausea that she did have 2 episodes of posttussive emesis. She has been sneezing. Denies being on anticoagulation. States had previously been diagnosed with asthma although it had been well controlled. At 1 point was told it had resolved and was taken off her albuterol inhaler p.r.n. but then this was represcribed another point. States her heart rate is normally in the 120s. Cough has been productive of sputum. She states she had a pneumonia a few months ago. Nonsmoker. History of NSTEMI. Related Data Home Medications ?Medication ?Instructions ?Recorded ?Confirmed ?Last Taken ?Type gabapentin 600 mg tablet 600 mg PO TID 03/11/21 10/03/23 10/02/23 20:00 History 600 insulin glargine 100 unit/mL 30 unit subcut HS 06/24/21 10/03/23 10/02/23 21:00 History subcutaneous solution (Lantus 30 Units U-100 Insulin) insulin lispro 100 unit/mL 8 unit subcut TIDWMEAL 06/24/21 10/03/23 10/02/23 18:00 History subcutaneous pen (Humalog KwikPen 8 units (U-100) Insulin) atorvastatin 20 mg tablet 20 mg PO HS 12/19/22 10/03/23 10/02/23 21:00 History 20 ergocalciferol (vitamin D2) 1,250 50,000 unit PO WEEKLY 12/19/22 10/03/23 12/09/22 09:00 History mcg (50,000 unit) capsule Allergies Allergy/AdvReac Type Severity Reaction Status Date / Time No Known Allergies Allergy Unknown Verified 05/18/24 22:06 [facility] Past Medical History Medical History (Updated 06/18/24 @ 00:00 by [facility]) Non-ST elevation PR (NSTEMI) Pneumonia 2023 Chronic pancreatitis Hypertriglyceridemia Dyslipidemia Gastroesophageal reflux disease Insulin dependent type 2 diabetes mellitus Poorly controlled with last A1c of 10.3 in 2022 Hepatic steatosis With hepatomegaly Kidney stones Diabetic neuropathy Osteomyelitis of ankle or foot, left, acute (2020) Psoriasis Asthma Hypertension Surgical History Surgical History History of laparoscopic cholecystectomy (06/20/22) 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 Surrogate medical decision maker: Carlee River, mother. Code status: Full code. Smoking status: Never smoker Alcohol intake: never Alcohol use details: Rare alcohol use. Substance use: never Substance use type: prescription drug Do You Feel Safe in your Home?: Yes Lack of Transportation: No Lack of Food: Never True Current Housing: I Have Housing Concerned About Future Housing: No Difficulty Paying Gas/Electric Bills: No Difficulty Paying for Meds: No Currently Unemployed: No Education: High School Diploma/GED Difficulty w/ Childcare or Family Care: No Living arrangements: with family Additional living arrangements comments: Lives in [place] with mother and significant other. Two children at home. Occupation/Education: unemployed Additional occupation/education comments: Applying for disability Spiritual care concerns: No Exam 2 Narrative: GENERAL: Well-appearing, well-nourished, and in no acute distress. HEAD: Normocephalic, atraumatic. EYES: Non injected, non icteric ENT: Nares clear, no rhinorrhea or epistaxis. NECK: Supple. CHEST: Speaking in full sentences. No respiratory distress. Lungs with coarse basilar rhonchi. HEART: Borderline tachycardic rate and rhythm. . ABDOMEN: Soft, nondistended. Morbidly Obese. No rigidity or guarding but Mild tenderness to palpation at the epigastrium and in the right lower quadrant. Not peritoneal. EXTREMITIES: Normal range of motion. Trace lower extremity edema on the right. No lower extremity edema on left. SKIN: Warm, dry, no rash. NEURO: No focal deficits. Alert and oriented x3. PSYCH: Normal mood and affect. Course Vital Signs Vital signs: Vital Signs Temperature 97.5 F L 06/16/24 22:32 Pulse Rate 101 H 06/16/24 22:32 Respiratory Rate 17 06/16/24 22:32 Blood Pressure 168/88 H 06/16/24 22:32 Pulse Oximetry 97 06/16/24 22:32 Oxygen Delivery Room Air 06/16/24 22:32 Temperature 97.5 F L 06/16/24 22:32 Pulse Rate 99 06/17/24 03:36 Respiratory Rate 15 06/17/24 03:36 Blood Pressure 173/92 H 06/17/24 03:36 Pulse Oximetry 98 06/17/24 03:36 Oxygen Delivery Room Air 06/16/24 22:36 MDM - URI/Sore Throat MDM Narrative Medical decision making narrative: Patient presents multiple complaints. Initially her symptoms do sound viral as she has a cough and congestion and multiple other family members have tested positive for the flu who over the past 1-2 weeks. In the emergency department she is afebrile vital signs notable for hypertension and mild tachycardia. However, patient has significant risk factors and is also complaining of shortness of breath and chest pain and she has a history of a triple bypass. She also has mild unilateral edema on exam and is borderline tachycardic. She also has tenderness to palpation on her abdominal exam. Because of this, she will require a larger workup. Patient given Tessalon Perles for the cough and 1 time dose of dexamethasone for pharyngitis while await workup. Will also give morphine for abdominal pain and Albuterol Neb Tx for coarse breath sounds. HEART SCORE History 2 highly suspicious 1 moderately suspicious 0 slightly suspicious History score [address] depression/elevation not due to LBBB, LVH, or digoxin [address] depression but LBBB, LVH, nonspecific repolarization changes 0 normal ECG score 0 Age 2 >/= 65 1 45-64 0 <45 Age score 1 Risk factors (HTN, hypercholesterolemia, DM, obesity with BMI >30, current smoker or cessation </=3mo), positive fam hx with parent or sibling with CVD before age 65, atherosclerotic disease (prior PR, PCI/CABG, CVA/TIA, or peripheral arterial disease) 2 >/= 3 risk factors or history of atherosclerotic dz 1 - 1-2 risk factors 0 no known risk factors Risk factor score: 2 (obese, hx NSTEMI, HTN...) Initial Troponin 2 >3 times normal limit 1 1-3 times normal limit 0 less than or equal to normal limit Troponin score 0 Total HEART Score 3. CT Abd/pelvis ordered given TTP at epigastrium and RLQ; will also add Chest given symptoms and risk factors (not CTA given Dimer negative). She test positive for influenza A. Very mild AST and ALT elevations, chronic/stable from previous. Her BNP is mildly elevated, improved from previous. She is not currently on a diuretic but not volume overloaded on exam, only trace edema. Patient has 1+ bacteria on urinalysis however with moderate squamous cells and without other features that would be concerning for urinary tract infection and for this reason we will defer giving antibiotics for this. CT chest concerning for an atypical right upper lobe pneumonia. First dose of azithromycin given in the emergency department with the rest of the course to be prescribed. Second troponin is negative. IUD is seen on CT imaging. There is also commentary about an enlarged mildly heterogenous cervix. A pelvic exam was offered to the patient further investigate but she states she had a little bit of breakthrough bleeding within this past week. She has an Ob Gyne and declines a pelvic exam today. She has an appointment to see shipping support clerk Dr. Rogel in August. Otherwise stable for discharge at this time. She is also prescribed additional medications for supportive care, Tessalon Perles Cepacol lozenges. All questions answered. Not in need of a work note. Differential Diagnosis Differential diagnosis: Likely upper respiratory infection, viral infection, bronchitis, influenza and other (Pneumonia, pulmonary embolism, ACS) Lab Data Attestation: I reviewed the patient's lab results. 06/16/24 23:09 06/16/24 23:09 Labs: Lab Results 06/16/24 06/16/24 06/17/24 Range/Units 22:36 23:09 00:26 WBC 8.0 (4.5-10.0) K/mm3 RBC 4.99 (4.2-5.4) M/mm3 Hgb 13.7 (12.0-15.0) g/dL Hct 41.7 (37.0-47.0) % MCV 83.6 (80-100) fl MCH 27.5 (26-34) pg MCHC 32.9 (32-36) g/dl RDW 15.2 H (11.5-14.5) % Plt Count 217 (150-375) k/mm3 MPV 10.3 (7.4-10.4) fl Immature Gran % (Auto) 0.2 (0-0.5) % Neut % (Auto) 54.5 (45.5-73.1) % Lymph % (Auto) 33.6 (18.3-44.2) % Ocean % (Auto) 8.8 H (2.6-8.5) % Eos % (Auto) 2.5 (0-4.4) % Baso % (Auto) 0.4 (0.2-1.2) % Lymph # (Auto) 2.70 (0.9-3.2) K/mm3 Ocean # (Auto) 0.7 H (0.1-0.6) K/mm3 Eos # (Auto) 0.2 (0-0.3) K/mm3 Baso # (Auto) 0.0 (0.0-0.1) K/mm3 Abs Immat Gran (auto) 0.02 (0.00-0.031) K/mm3 Absolute Neuts (auto) 4.4 (1.3-6.7) K/mm3 Absolute Nucleated RBC 0.000 (0.0-0.012) K/mm3 Nucleated RBC % 0.0 (0.0-0.2) % PT 12.8 (11.1-14.7) Seconds INR 0.9 APTT 31.4 (22.3-36.8) Seconds D-Dimer 0.27 (<0.48) ug/mL Sodium 139 (137-145) mmol/L Potassium 4.3 (3.4-5.0) mmol/L Chloride 104 (98-107) mmol/L Carbon Dioxide 26 (22-30) mmol/L Anion Gap 9 (4-12) mmol/L BUN 15 (7-17) mg/dL Creatinine 0.81 (0.7-1.0) mg/dL Estim Creat Clear Calc Not Reportable Estimated GFR > 60 (59 - ) Glucose 135 H (65-110) mg/dL Calcium 9.1 (8.4-10.2) mg/dL Total Bilirubin 0.4 (0.2-1.3) mg/dL AST 50 H (14-36) U/L ALT 44 H (6-35) U/L Alkaline Phosphatase 85 (38-126) U/L Troponin I < 0.012 (0.000-0.034) ng/mL NT-Pro-B Natriuret Pep 693 H (19.9-100) pg/mL Total Protein 8.0 (6.3-8.2) g/dL Albumin 3.6 (3.5-5.1) g/dL Lipase 132 (23-300) U/L Urine Color Yellow (Yellow) Urine Appearance Cloudy H (Clear) Urine pH 6.0 (5.0-9.0) Ur Specific Slaughter 1.021 (1.001-1.035) Urine Protein 3+ H (Negative) mg/dL Urine Glucose (UA) 1+ H (Negative) mg/dL Urine Ketones Negative (Negative) mg/dL Ur Blood (Man) 2+ H (Negative) Urine Nitrate Negative (Negative) Urine Bilirubin Negative (Negative) Urine Urobilinogen 1.0 (<2.0) mg/dL Leukocyte Esterase Rfl Negative (Negative) HEATHER/UL Urine RBC 0-2 (0-2) /hpf Urine WBC 0-5 (0-3) /hpf Ur Squamous Epith Cells Moderate (Few) /hpf Urine Bacteria 1+ H /hpf Urine Casts 3-5 Influenza A (RT-PCR) Positive A (Negative) Influenza B (RT-PCR) Negative (Negative) RSV (RT-PCR) Negative (Negative) SARS-CoV-2 RNA (RT-PCR) Negative (Negative) 06/17/24 Range/Units 01:29 WBC (4.5-10.0) K/mm3 RBC (4.2-5.4) M/mm3 Hgb (12.0-15.0) g/dL Hct (37.0-47.0) % MCV (80-100) fl MCH (26-34) pg MCHC (32-36) g/dl RDW (11.5-14.5) % Plt Count (150-375) k/mm3 MPV (7.4-10.4) fl Immature Gran % (Auto) (0-0.5) % Neut % (Auto) (45.5-73.1) % Lymph % (Auto) (18.3-44.2) % Ocean % (Auto) (2.6-8.5) % Eos % (Auto) (0-4.4) % Baso % (Auto) (0.2-1.2) % Lymph # (Auto) (0.9-3.2) K/mm3 Ocean # (Auto) (0.1-0.6) K/mm3 Eos # (Auto) (0-0.3) K/mm3 Baso # (Auto) (0.0-0.1) K/mm3 Abs Immat Gran (auto) (0.00-0.031) K/mm3 Absolute Neuts (auto) (1.3-6.7) K/mm3 Absolute Nucleated RBC (0.0-0.012) K/mm3 Nucleated RBC % (0.0-0.2) % PT (11.1-14.7) Seconds INR APTT (22.3-36.8) Seconds D-Dimer (<0.48) ug/mL Sodium (137-145) mmol/L Potassium (3.4-5.0) mmol/L Chloride (98-107) mmol/L Carbon Dioxide (22-30) mmol/L Anion Gap (4-12) mmol/L BUN (7-17) mg/dL Creatinine (0.7-1.0) mg/dL Estim Creat Clear Calc Estimated GFR (59 - ) Glucose (65-110) mg/dL Calcium (8.4-10.2) mg/dL Total Bilirubin (0.2-1.3) mg/dL AST (14-36) U/L ALT (6-35) U/L Alkaline Phosphatase (38-126) U/L Troponin I < 0.012 (0.000-0.034) ng/mL NT-Pro-B Natriuret Pep (19.9-100) pg/mL Total Protein (6.3-8.2) g/dL Albumin (3.5-5.1) g/dL Lipase (23-300) U/L Urine Color (Yellow) Urine Appearance (Clear) Urine pH (5.0-9.0) Ur Specific Slaughter (1.001-1.035) Urine Protein (Negative) mg/dL Urine Glucose (UA) (Negative) mg/dL Urine Ketones (Negative) mg/dL Ur Blood (Man) (Negative) Urine Nitrate (Negative) Urine Bilirubin (Negative) Urine Urobilinogen (<2.0) mg/dL Leukocyte Esterase Rfl (Negative) HEATHER/UL Urine RBC (0-2) /hpf Urine WBC (0-3) /hpf Ur Squamous Epith Cells (Few) /hpf Urine Bacteria /hpf Urine Casts Influenza A (RT-PCR) (Negative) Influenza B (RT-PCR) (Negative) RSV (RT-PCR) (Negative) SARS-CoV-2 RNA (RT-PCR) (Negative) Imaging Data Radiologist's impression: CT Chest with Contrast: Bilateral airspace opacities are worse on the right upper lobe concerning for atypical infection. Recommend follow-up CT in 3 months to ensure resolution and exclude underlying pulmonary nodule. The heart size is within normal limits. Extensive surgical changes of the mediastinum are noted. No pathologically enlarged lymph nodes. No fracture. No incidental findings CT Abd & Pelvis with Contrast: Enlarged mildly heterogenous cervix. Recommend further evaluation with pelvic exam. An IUD is noted within an otherwise unremarkable uterus. Simple appearing bilateral ovarian cysts measure up to 2.2 cm on the right. Given the size no follow-up is needed. Calcifications of the head of the pancreas are concerning for chronic pancreatitis. Nonobstructing bilateral renal calculi are present. No hydronephrosis of either kidney. The remaining solid organs are within normal limits. Small hiatal hernia. No bowel obstruction. No fracture. Normal appendix. ECG Data EKG #1: Attestation: I personally reviewed and interpreted this ECG as follows: ECG completion date: 06/16/24 ECG completion time: 23:54 Interpretation: Sinus tachycardia at a rate of 100 beats per minute. VA interval 164. QRS 100. QT/QTC 357/414. Incomplete RBBB given QRS less [id number]; RSR' M-shaped pattern in V1-V3; wide, slurred S wave in lateral leads (I, aVL, V5-6). No T- wave inversions. Discharge Plan Discharge Clinical Impression: Influenza A, Elevated SGOT (AST), ALT (SGPT) level raised, Elevated brain natriuretic peptide (BNP) level, Atypical pneumonia Patient Disposition: Home, Self-Care Condition: Stable Instructions: Antibiotic Form, Influenza (ED), Pneumonia (ED) Additional Instructions: As we discussed, you tested positive for influenza a which we do not typically give antibiotics poor however, there was concern for an atypical pneumonia on your CT scan and for this reason your given your 1st dose of antibiotic in the emergency department the rest of the course prescribed. You are also being prescribed some medications that can help which can be taken in addition to the [id number] medications you have been trialing although as we discussed honey has proven to be just as effective so trial a little of this (not much given your diabetes). Rest and maintain your hydration. Follow-up with primary care physician. Follow-up with your Ob Gyne for the findings on CT of the enlarged mildly heterogenous cervix. Keep your upcoming appointment with Dr. Rogel in August. Return to the emergency department with any new or worsening symptoms. Patient Language: Ukrainian Prescriptions: New azithromycin 250 mg tablet 250 mg PO DAILY 4 Days Qty: 4 0RF Rx Instructions: start on day 2 of therapy (06/18/24); already received ABX in the ED 06/17 benzonatate 100 mg capsule 100 mg PO BID PRN (Reason: cough) Qty: 20 0RF Sore Throat and Cough 5-7.5 mg lozenge 1 reza PO Q4H PRN (Reason: cough) Qty: 18 0RF No Action Creon 12,000-38,000 -60,000 unit capsule,delayed release(DR/EC) 2 cap PO TIDWM Qty: 180 0RF insulin lispro [Humalog KwikPen Insulin] 100 unit/mL insulin pen 8 unit SUBCUT TIDWMEAL insulin glargine [Lantus U-100 Insulin] 100 unit/mL solution 30 unit subcut HS gabapentin 600 mg tablet 600 mg PO TID atorvastatin 20 mg tablet 20 mg PO HS ergocalciferol (vitamin D2) 1,250 mcg (50,000 unit) capsule 50,000 unit PO WEEKLY Patient Comments: states she hasn't taken this medication for a couple of weeks. Rx Instructions: Takes on fridays ondansetron 4 mg tablet,disintegrating 4 mg PO Q8H PRN (Reason: nausea and vomiting) Qty: 10 0RF Patient Comments: unknown exact time taken yesterday ibuprofen 400 mg tablet 400 mg PO Q6H PRN (Reason: pain) Qty: 14 0RF Patient Comments: patients states she isn't aware of exact time she last took medication hydrocodone-acetaminophen 5-325 mg tablet 1 tablet PO Q8H PRN (Reason: pain) Qty: 10 0RF Patient Comments: patient states she took pain meds before coming to hospital, unknown exact time. tamsulosin [Flomax] 0.4 mg capsule 0.4 mg PO DAILY Qty: 10 0RF Follow-up/Referrals: Nathalia,Chayito Lui APN [Primary Care Provider] - Time of Disposition: 03:30
--- OUTSIDE RECORDS SUMMARY | 2024-06-16 22:45 | XMS_ITS | Encounter Summary ---
Author Organization [facility] Address [address] [place] [address] Phone Care Team Providers Care Paste Up Copy Camera Operator Name Role Phone Nathalia Chayito CHAVEZ CNP Primary Care Provider [phone] Broderick Perez MD Unavailable Albert Olivera MD Unavailable [phone] Reason for Visit * Reason Comments Medication Refill Encounter Details Date Type Department Care Team (Late Contact Info) Description 04/23/[address] [facility] [address] [place] [phone] Albert Olivera MD [address] [place] [phone] Medication Refill Social History Tobacco Use Types Packs/Day Years Used Date Smoking Tobacco: Never Smokeless Tobacco: Never Alcohol Use Standard Drinks/Week Comments Not Currently 0 (1 standard drink = 0.6 oz pur e alcohol) Sexually Active Control Partners Comments Yes Comments Unknown Sex and Gender Information Value Date Recorded Sex Assigned at Not on file Legal Sex Female 8:35 AM [employer] Gender Identity Not on file Sexual Orientation Not on file documented as of this encounter Plan of Treatment Upcoming Encounters Date Type Department Care Team (Late Contact Info) Description 10/21/2024 11:00 AM CDT Office Visit [facility] [address] [place] [phone] Albert Olivera MD [address] [place] [address] documented as of this encounter Visit Diagnoses Not on filedocumented in this encounter Care Teams Paste Up Copy Camera Operator Relationship Specialty Start Date End Date Chayito Sloan APRN, CNP [address] [address] PCP - General Family Medicine 11/22/23 Broderick Perez MD [address] [phone] Consulting Physician Endocrinology 01/02/24 Albert Olivera MD [address] [place] [phone] Consulting Physician Neurology 01/23/24 documented as of this encounter
--- OUTSIDE RECORDS SUMMARY | 2024-06-16 22:45 | XMS_ITS | Clinical Summary ---
Author Organization [facility] Address [address] [place] [address] Phone Care Team Providers Care Vamp Stitcher Name Role Phone Nathalia, Chayito CHAVEZ CNP Primary Care Provider [phone] Broderick Perez MD Unavailable Albert Olivera MD Unavailable [phone] Allergies Active Allergy Reactions Criticality Noted Date Comments Wound Dressing Adhesive Rash 05/20/2024 Medications ibuprofen (MOTRIN) 800 MG Tablet Take 800 mg by mouth every 6 hours as needed. Active atorvastatin (LIPITOR) 20 MG Tablet Take 20 mg by mouth daily. Active pancrelipase, lipase-proteas e-amylase, (Creon) [id number] Capsule DR Particles Take 1 Capsule by [...] 9 Each 1 4 Active Continuous Glucose Regional Sales Manager (Dexcom G7 Regional Sales Manager) DeviceIndicati ons:Type 2 diabetes mellitus with diabetic [...] 1 4 Active Insulin Pen Needle ([place]) 31G X 6 MM Misc 4 times [...] Department Care Team Description 05/29/2024 4:45 PM MEETING FACILITATOR - 05/29/2024 11:59 PM MEETING FACILITATOR Hospital En[facility] Diagnostic Radiology [address] [place] [address] Chayito Sloan APRN, PROPERTY ADJUSTER Discharge Disposition: Discharged to home or Selfcare 05/29/2024 Travel 05/29/2024 Transcribe Orders [facility] Central Scheduling [address] [place] [address] Chayito Sloan APRN, GREGORY Lumbar radiculopathy (Primary Dx) 05/20/2024 9:34 PM MEETING FACILITATOR - 05/21/2024 12:09 AM MEETING FACILITATOR Emergency [facility] Emergency [address] [place] [address] Donte Palomares DO Kidney stones Discharge Disposition: Discharged to home or Selfcare 05/20/2024 Travel 04/23/2024 Refill [facility] [address] [place] [address] Albert Olivera MD Medication Refill 04/22/2024 1:45 PM MEETING FACILITATOR Office Visit [facility] [address] [place] [address] Albert Olivera MD Type 2 diabetes mellitus with diabetic polyneuropathy, with long-term current use of insulin (HCC) (Primary Dx); Ischemic cardiomyopathy; Morbid obesity (HCC); Renal insufficiency Discharge Disposition: Discharged to home or Selfcare 04/22/2024 Travel 03/27/2024 10:00 AM MEETING FACILITATOR EMG [facility] [address] [place] [address] Albert Olivera MD Type 2 diabetes mellitus with diabetic polyneuropathy, with long-term current use of insulin (HCC) Discharge Disposition: Discharged to home or Selfcare 03/27/2024 Travel 03/25/2024 Travel 03/21/2024 Refill [facility] [address] [place] [address] Albert Olivera MD Medication Refill from Last 3 Months Immunizations Immunization Administration Dates Next Due Human Papillomavirus (HPV) Vaccine, Bivalent Human Papillomavirus Vaccine (HPV), quadrivalent 01/04/2007,11/03/2006 MMR Vaccine 04/27/1993 Pneumococcal conjugate PCV20 , polysaccharide [id number] conjugate, adjuvant, PF 08/17/2021 TDAP Vaccine 11/03/2006 [...] on file Legal Sex Female 8:35 AM MEETING FACILITATOR Gender Identity Not on file Sexual Orientation Not on file Last Filed Vital Signs Vital Sign Reading Time Taken Comments Blood Pressure 148/87 05/20/2024 11:15 PM MEETING FACILITATOR Pulse 108 05/21/2024 12:00 AM MEETING FACILITATOR Temperature 36.6 C (97.9 F) 05/20/2024 9:29 PM MEETING FACILITATOR Respiratory Rate 16 05/20/2024 9:29 PM MEETING FACILITATOR Oxygen Saturation 95% 05/21/2024 12:00 AM MEETING FACILITATOR Inhaled Oxygen Concentration - - Weight 93.4 kg (206 lb) 05/20/2024 9:29 PM MEETING FACILITATOR Height 149.9 cm (4' 11 ) 05/20/2024 9:29 PM MEETING FACILITATOR Body Mass Index 41.61 05/20/2024 9:29 PM MEETING FACILITATOR Plan of Treatment Upcoming Encounters Date Type Department Care Team (Late st Contact Info) Description 10/21/2024 11:00 AM CDT Office Visit [facility] [address] [place] [address] Albert Olivera MD [address] [place] [address] Health Maintenance Due Date Last Done Comments [...] OR 3 VIEWS Routine 05/29/2024 4:55 PM MEETING FACILITATOR Lumbar radiculopathy CT ABDOMEN PELVIS W/ CONTRAST Stat with Interpretation 05/20/2024 11:26 PM MEETING FACILITATOR BLUE TOP TUBE STAT 05/20/2024 9:44 PM MEETING FACILITATOR CBC WITH AUTO DIFFERENTIAL STAT 05/20/2024 9:44 PM MEETING FACILITATOR EXTRA TUBES STAT 05/20/2024 9:44 PM MEETING FACILITATOR HUMAN CHORIONIC GONADOTROPIN SCRN SERUM STAT 05/20/2024 9:44 PM MEETING FACILITATOR URINALYSIS REFLEX IF INDICATED BY ABNORMAL RESULTS STAT 05/20/2024 9:44 PM MEETING FACILITATOR COMPLETE BLOOD COUNT (CBC) WITH DIFF STAT 05/20/2024 9:44 PM MEETING FACILITATOR CMP (COMPREHENSIVE METABOLIC PANEL) STAT 05/20/2024 9:44 PM MEETING FACILITATOR EMG Routine 03/27/2024 12:00 AM MEETING FACILITATOR Type 2 diabetes mellitus with diabetic polyneuropathy, with long-term current use of insulin (HCC) POCT GLYCOSYLATED HEMOGLOBIN Routine 01/10/2024 10:34 AM CDT Type 2 diabetes mellitus with diabetic polyneuropathy, with long-term current use of insulin (HCC) from Last 3 Months or Most Recently Relevant to Health Maintenance Results * XR LUMBAR SPINE 2 OR 3 VIEWS (05/29/2024 4:55 PM MEETING FACILITATOR) Anatomical Region Laterality Modality Spine, L-spine N/A Digital Radiogra phy 05/30/2024 8:28 AM MEETING FACILITATOR Impressions 05/30/2024 8:31 AM MEETING FACILITATOR IMPRESSION: Mild diffuse lumbar degenerative disc disease. Narrative 05/30/2024 8:31 AM MEETING FACILITATOR EXAM DESCRIPTION: XR LUMBAR SPINE 2 OR [...] Luis Ricks M.D. MF: [id number] Report ID: [id number] Reading Location: [place] [address] Procedure Note Luis Ricks MD - 05/30/2024 [...] Luis Ricks M.D. MF: MF Report ID: [id number] Reading Location: [id number] IMPRESSION: Mild diffuse lumbar degenerative disc disease. us Chayito Sloan GLASS FORMING CREW MEMBER, GREGORY IMG DIAGNOSTIC ORDERABLES Final Result * CT ABDOMEN PELVIS W/ CONTRAST (05/20/2024 11:26 PM MEETING FACILITATOR) Anatomical Region Laterality Modality Abdomen N/A Computed Tomogra phy 05/20/2024 11:4 9 PM MEETING FACILITATOR Impressions 05/20/2024 11:52 PM MEETING FACILITATOR IMPRESSION: No acute finding in the abdomen or pelvis. Bilateral punctate nonobstructive renal calculi. Pancreatic head calcifications representing sequela of chronic pancreatitis. Narrative 05/20/2024 11:52 PM MEETING FACILITATOR EXAM DESCRIPTION: CT ABDOMEN PELVIS W/ CONTRAST [...] Trace sliding hiatal hernia. The stomach is [id number] distended. No evidence of small-bowel obstruction. Normal [...] Arthur Amaral M.D. MM: MM Report ID: [id number] Reading Location: [place] [address] Procedure Note Arthur Amaral MD - 05/20/2024 [...] Trace sliding hiatal hernia. The stomach is zoys-zo-qkracgfepl distended. No evidence of small-bowel obstruction. Normal [...] Arthur Amaral M.D. MM: MM Report ID: [id number] Reading Location: [place] [address] IMPRESSION: No acute finding in the abdomen or pelvis. Bilateral punctate nonobstructive renal calculi. Pancreatic head calcifications representing sequela of chronic pancreatitis. us Donte Palomares DO IMG CT ORDERABLES Final Result * (ABNORMAL) Urinalysis Reflex if Indicated by Abnormal Results (05/20/2024 9:44 PM MEETING FACILITATOR) SPECIFIC GRAVITY 1.010 1.003 - 1.030 05/20/2024 10:38 PM MEETING FACILITATOR [facility] URINE PH 7.0 5.0 - 9.0 05/20/2024 10:38 PM MEETING FACILITATOR [facility] WBC ESTERASE Negative Negative 05/20/2024 10:38 PM MEETING FACILITATOR [facility] NITRITE Negative Negative 05/20/2024 10:38 PM MEETING FACILITATOR [facility] PROTEIN, RANDOM URINE 100 mg/dL(A) Negative 05/20/2024 10:38 PM MEETING FACILITATOR [facility] URINE GLUCOSE, QUAL 250 mg/dL(A) Negative 05/20/2024 10:38 PM MEETING FACILITATOR [facility] URINE KETONES Negative Negative 05/20/2024 10:38 PM MEETING FACILITATOR [facility] UROBILINOGEN Normal Normal mg/dL 05/20/2024 10:38 PM MEETING FACILITATOR [facility] URINE BLOOD 10 /uL(A) Negative eldon/ul 05/20/2024 10:38 PM MEETING FACILITATOR [facility] URINALYSIS COLOR Yellow 05/20/19 10:38 PM MEETING FACILITATOR [facility] URINALYSIS CLARITY Clear 05/20/2024 10:38 PM MEETING FACILITATOR [facility] WBC (Urine) 0-5 Negative, 0-5 /hpf 05/20/2024 10:38 PM MEETING FACILITATOR [facility] URINE RBC'S 0-2 Negative, 0-2 /hpf 05/20/2024 10:38 PM MEETING FACILITATOR [facility] EPITHELIAL CELLS Moderate amount /lpf 05/20/2024 10:38 PM MEETING FACILITATOR [facility] BACTERIA, URINE Few(A) Negative /hpf 05/20/2024 10:38 PM MEETING FACILITATOR [facility] Urine URINE SPECIMEN / Unknown Non-Phlebotomy Collection / Unknown 05/20/2024 9:44 PM MEETING FACILITATOR 05/20/2024 10:03 PM MEETING FACILITATOR us Donte Palomares DO URINE ORDERABLES Final Result Performing Organization Address City/[facility] Co de Phone Number [facility] [address] [place] [address] * Blue Top Tube (05/20/2024 9:44 PM MEETING FACILITATOR) Blood No Phlebotomy Charged / Unknown 05/20/2024 9:44 PM MEETING FACILITATOR 05/20/2024 10:03 PM MEETING FACILITATOR us Donte Palomares DO HEMATOLOGY ORDERABLES F inal Result Performing Organization Address City/[facility]/ZIP Co de Phone Number [facility] [address] [place] [address] * (ABNORMAL) CBC with Auto Differential (05/20/2024 9:44 PM MEETING FACILITATOR) WBC 8.99 4.00 - 12.00 10(3)/mcL 05/20/2024 10:10 PM MEETING FACILITATOR [facility] RBC 5.39(H) 3.80 - 5.30 10(6)/[facility] 05/20/2024 10:10 PM [facility] HEMOGLOBIN (HGB) 14.3 12.0 - 15.8 g/dL 05/20/2024 10:10 PM [facility] HEMATOCRIT (HCT) 44.4 36.0 - 47.0 % 05/20/2024 10:10 PM [facility] MCV 82.4 82.0 - 96.0 fL 05/20/2024 10:10 PM [facility] MCH 26.5 26.0 - 34.0 pg 05/20/2024 10:10 PM [facility] MCHC 32.2 31.0 - 36.0 g/dL 05/20/2024 10:10 PM [facility] PLATELET COUNT 236 140 - 440 10(3)/[facility] 05/20/2024 10:10 PM [facility] RDW 15.1 11.8 - 15.5 % 05/20/2024 10:10 PM [facility] MPV 10.9 9.7 - 12.4 fL 05/20/2024 10:10 PM [facility] NEUTROPHILS 57.0 47.0 - 73.0 % 05/20/2024 10:10 PM [facility] LYMPHOCYTES 30.9 18.0 - 42.0 % 05/20/2024 10:10 PM [facility] MONOCYTES 7.9 4.0 - 12.0 % 05/20/2024 10:10 PM [facility] EOSINOPHILS 3.3 0.0 - 5.0 % 05/20/2024 10:10 PM MEETING FACILITATOR [facility] BASOPHILS 0.9 0.0 - 1.0 % 05/20/2024 10:10 PM MEETING FACILITATOR [facility] ABSOLUTE NEUTROPHILS 5.12 1.60 - 7.70 10(3)/[facility] 05/20/2024 10:10 PM MEETING FACILITATOR [facility] ABSOLUTE LYMPHOCYTES 2.78 1.30 - 3.20 10(3)/[facility] 05/20/2024 10:10 PM MEETING FACILITATOR [facility] ABSOLUTE MONOCYTES 0.71 0.20 - 1.00 10(3)/[facility] 05/20/2024 10:10 PM MEETING FACILITATOR [facility] ABSOLUTE EOSINOPHIL 0.30 0.00 - 0.40 10(3)/[facility] 05/20/2024 10:10 PM MEETING FACILITATOR [facility] ABSOLUTE BASOPHILS 0.08 0.00 - 0.10 10(3)/[facility] 05/20/2024 10:10 PM MEETING FACILITATOR [facility] NRBC PER 100 WBC 0 05/20/19 10:10 PM MEETING FACILITATOR [facility] Blood Venipuncture / Unknown 05/20/2024 9:44 PM MEETING FACILITATOR 05/20/2024 10:03 PM MEETING FACILITATOR us Donte Palomares DO HEMATOLOGY ORDERABLES F inal Result [facility] [address] [place] [address] * Human Chorionic Gonadotropin Scrn Serum (05/20/2024 9:44 PM MEETING FACILITATOR) PREG-HCG Negative 05/20/2024 10:32 PM MEETING FACILITATOR [facility] Blood Venipuncture / Unknown 05/20/2024 9:44 PM MEETING FACILITATOR 05/20/2024 10:03 PM MEETING FACILITATOR Donte Palomares DO CHEMISTRY ORDERABLES Fi nal Result [facility] [address] [place] [address] * (ABNORMAL) CMP (Comprehensive Metabolic Panel) (05/20/2024 9:44 PM MEETING FACILITATOR) SODIUM 139 136 - 145 mmol/L 05/20/2024 10:34 PM [facility] POTASSIUM 4.6 3.5 - 5.1 mmol/L 05/20/2024 10:34 PM [facility] CHLORIDE 105 98 - 107 mmol/L 05/20/2024 10:34 PM [facility] CO2, VENOUS 22 22 - 30 mmol/L 05/20/2024 10:34 PM [facility] ANION GAP 16.6 <18.0 mmol/L 05/20/2024 10:34 PM [facility] GLUCOSE 175(H) 70 - 99 mg/dL 05/20/2024 10:34 PM [facility] BUN 11 5 - 18 mg/dL 05/20/2024 10:34 PM [facility] CREATININE, BLOOD 0.95 0.60 - 1.00 mg/dL 05/20/2024 10:34 PM [facility] BUN/CREATININE RATIO 12 12 - 20 ratio 05/20/2024 10:34 PM [facility] TOTAL PROTEIN 8.1 6.3 - 8.2 g/dL 05/20/2024 10:34 PM [facility] ALBUMIN 3.6 3.5 - 5.0 g/dL 05/20/2024 10:34 PM [facility] A/G RATIO 0.8(L) 1.0 - 2.2 05/20/2024 10:34 PM [facility] CALCIUM 9.2 8.7 - 10.5 mg/dL 05/20/2024 10:34 PM [facility] T BILI 0.2 0.2 - 1.2 mg/dL 05/20/2024 10:34 PM MEETING FACILITATOR [facility] SGOT (AST) 48(H) 5 - 34 U/L 05/20/2024 10:34 PM MEETING FACILITATOR [facility] SGPT (ALT) 38 0 - 55 U/L 05/20/2024 10:34 PM MEETING FACILITATOR [facility] ALKALINE PHOSPHATASE 94 40 - 150 U/L 05/20/2024 10:34 PM MEETING FACILITATOR [facility] GFR, ESTIMATED >60 >=60 05/20/2024 10:34 PM MEETING FACILITATOR [facility] Comment: Creatinine Clearance is the preferred criteria for selecting drug dose adjustments in renally impaired patients. The GFR is provided as additional pertinent clinical information. GFR is reported in mL/min/1.73 sq m. Calculation based on the Chronic Kidney Disease Epidemiology Collaboration (CKD- EPI) equation refit without adjustment for race. GFR, EST. >60 >=60 025 10:34 PM MEETING FACILITATOR [facility] GFR, EST. NONAFRICAN >60 >=60 05/20/2024 10:34 PM MEETING FACILITATOR [facility] Blood Venipuncture / Unknown 05/20/2024 9:44 PM MEETING FACILITATOR 05/20/2024 10:03 PM MEETING FACILITATOR us Donte Palomares DO CHEMISTRY ORDERABLES Fi nal Result [facility] [address] [place] [address] * EMG (03/27/2024 12:00 AM MEETING FACILITATOR) 03/27/2024 us Albert Olivera MD NEUROLOGY ORDERABLES V2 Marilyn l Result SCAN * (ABNORMAL) POCT GLYCOSYLATED HEMOGLOBIN (01/10/2024 10:34 AM CDT) HGB-A1C 10.1(A) 4 - 6 % Blood 01/10/2024 10:3 4 AM CDT Broderick Perez MD POINT OF CARE TESTING (MANUAL) F inal Result from Last 3 Months or Most Recently Relevant to Health Maintenance Insurance MEDICAID [place] Care Teams Vamp Stitcher Relationship Specialty Start Date End Date Sloan, SCOTT Stratton, PROPERTY ADJUSTER [address] [place] [id number] PCP - General Family Medicine 11/22/23 Broderick Perez MD [address] [phone] Consulting Physician Endocrinology 01/02/24 Albert Olivera MD [address] [place] [phone] Consulting Physician Neurology 01/23/24
--- OUTSIDE RECORDS SUMMARY | 2024-06-16 22:45 | XMS_ITS | Patient Health Summary ---
Author Organization [facility] Address [address] [place] [address] Care Team Providers Care Rehabilitation Attendant Name Role Phone Chayito Sloan Primary Care Provider [phone] Note from [facility],non-owned Affiliates and Associated Physician Practices is amultiple site organization consisting of ambulatory clinics and hospital sitesin [place], [place], [place] and [place]. This disclosure is being madepursuant to the Care Everywhere program and may not contain all information available regarding this patient. Last updated 18.[facility] Social History Tobacco Use Types Packs/Day Years Used Date Smoking Tobacco: Never Assessed Sex and Gender Information Value Date Recorded Sex Assigned at Not on file Gender Identity Not on file Sexual Orientation Not on file Care Teams Rehabilitation Attendant Relationship Specialty Start Date End Date Chayito Sloan APRN-CNP [address] [place] [address] PCP - General Nurse Practitioner Family 10/11/23
--- OUTSIDE RECORDS SUMMARY | 2024-06-16 22:45 | XMS_ITS | Referral Summary ---
Author Organization [facility] Address [address] [place] [address] Care Team Providers Care Projection Welding Machine Operator Name Role Phone Chayito Sloan APRN-GREGORY Primary Care Provider [phone] Source Comments [facility],non-owned Affiliates and Associated Physician Practices is amultiple site organization consisting of ambulatory clinics and hospital sitesin [place], [place], [place] and [place]. This disclosure is being madepursuant to the Care Everywhere program and may not contain all information available regarding this patient. Last updated 18.[facility] Social History Tobacco Use Types Packs/Day Years Used Date Smoking Tobacco: Never Assessed Sex and Gender Information Value Date Recorded Sex Assigned at Not on file Gender Identity Not on file Sexual Orientation Not on file Plan of Treatment Not on file Care Teams Projection Welding Machine Operator Relationship Specialty Start Date End Date Chayito Sloan APRN-CNP [address] [place] [phone] PCP - General Nurse Practitioner Family 10/11/23
--- OUTSIDE RECORDS SUMMARY | 2024-06-16 22:45 | XMS_ITS | CONTINUITY OF CARE DOCUMENT ---
Author Name dimitrios plunkett Address Unknown Organization [facility] Office Address [address] [place] [address] [address] [place] [address] Phone [phone] Care Team Providers Care Director Clinical Pharmacology Name Role Phone Germain SHAH, Unavailable [phone]
--- OUTSIDE RECORDS SUMMARY | 2024-06-16 22:45 | XMS_ITS | Clinical Summary ---
Author Organization [facility] Address [facility] [place] [address] Care Team Providers Care Television Script Writer Name Role Phone Alissa Webster MD Primary Care Provider [phone] Allergies No known active allergies Medications insulin [...] less, will sometimes take 1 Active pancrelipase, Mvv-Ewkw-Qltn, (CREON) 84366 UNIT CAPSULE ENTERIC COATED PARTICLES Take 1 [...] on file Legal Sex Female 10:05 AM JAVA PROGRAMMER Gender Identity Not on file Sexual Orientation Not on file Last Filed Vital Signs Vital Sign Reading Time Taken Comments Blood Pressure 138/90 05/29/2023 9:45 AM JAVA PROGRAMMER Pulse 87 05/29/2023 9:45 AM JAVA PROGRAMMER Temperature 36.7 C (98.1 F) 05/29/2023 9:45 AM JAVA PROGRAMMER Respiratory Rate 16 05/29/2023 9:45 AM JAVA PROGRAMMER Oxygen Saturation 97% 05/29/2023 9:45 AM JAVA PROGRAMMER Inhaled Oxygen Concentration - - Weight 93.9 kg (207 lb 0.2 oz) 05/29/2023 6:10 A M JAVA PROGRAMMER Height 151.1 cm (4' 11.5 ) 05/22/2023 11:[address] Body Mass Index 41.11 05/22/2023 11:48 AM JAVA PROGRAMMER Plan of Treatment Health Maintenance Due Date [...] complete this topic Insurance [employer] Care Teams Television Script Writer Relationship Specialty Start Date End Date Alissa Webster MD [address] [place] [id number] PCP - General INTERNAL MEDICINE 05/29/23
--- OUTSIDE RECORDS SUMMARY | 2024-06-16 22:45 | XMS_ITS | Clinical Summary ---
Author Organization [facility] Address [address] [place] [address] Care Team Providers Care Educational Technologist Name Role Phone Chayito Sloan SCOTT-BAG MAKER Primary Care Provider [phone] Source Comments [facility],non-owned Affiliates and Associated Physician Practices is amultiple site organization consisting of ambulatory clinics and hospital sitesin [place], [place], [place] and [place]. This disclosure is being madepursuant to the Care Everywhere program and may not contain all information available regarding this patient. Last updated 18.[facility] [place] Social History Tobacco Use Types Packs/Day Years [...] age to complete this topic Care Teams Educational Technologist Relationship Specialty Start Date End Date Chayito Sloan APRN-BAG MAKER [address] [place] [address] PCP - General Nurse Practitioner Family 10/11/23
[2024-06-16] MEDS: dexAMETHasone 2 MG TABLET 10 MG PO (23:15)
[2024-06-16] MEDS: BENZONATATE 100 MG CAPSULE PO (23:15)
--- NOTE | 2024-06-16 23:15 | ECG_ITS ---
Test Date: 2024-06-16 23:54:58 Measurements Intervals [place] Rate: 100 P: 47 LA: 164 QRS: 85 QRSD: 100 T: 52 QT: 357 QTc: 462 Interpretive Statements SINUS TACHYCARDIA POSSIBLE LEFT ATRIAL ENLARGEMENT INCOMPLETE RIGHT BUNDLE BRANCH BLOCK ANTEROSEPTAL INFARCT, AGE INDETERMINATE BORDERLINE ST ABNORMALITY- HIGH LATERAL LEADS ABNORMAL ECG No previous ECG available for comparison Electronically Signed On 06-17-2024 06:24:40 BEAMER HELPER by Arnol Berry D.O.
[2024-06-16 23:16] LABS: Basophils Percent Auto 0.4 % (0.2-1.2); Eosinophils Absolute Auto 0.2 K/mm3 (0-0.3); Eosinophils Percent Auto 2.5 % (0-4.4); Hematocrit 41.7 % (37.0-47.0); Hemoglobin 13.7 g/dL (12.0-15.0); Immature Granulocyte Absolute 0.02 K/mm3 (0.00-0.031); Immature Granulocyte Percent A 0.2 % (0-0.5); Lymphocytes Percent Auto 33.6 % (18.3-44.2); Mean Corpuscular HGB Conc 32.9 g/dl (32-36); Mean Corpuscular Hemoglobin 27.5 pg (26-34); Mean Corpuscular Volume 83.6 fl (80-100); Mean Platelet Volume 10.3 fl (7.4-10.4); Monocytes Absolute Auto 0.7 K/mm3 (0.1-0.6); Monocytes Percent Auto 8.8 % (2.6-8.5); Neutrophils Absolute Auto 4.4 K/mm3 (1.3-6.7); Neutrophils Percent Auto 54.5 % (45.5-73.1); Platelet Count Result 217 k/mm3 (150-375); Red Blood Count 4.99 M/mm3 (4.2-5.4); Red Cell Distribution Width 15.2 % (11.5-14.5)
[2024-06-16 23:18] LABS: Influenza A QL RT-PCR Positive (Negative); Influenza B QL RT-PCR Negative (Negative); RSV RNA, RT-PCR Negative (Negative); SARS-CoV-2 RNA PCR Negative (Negative)
[2024-06-16 23:26] LABS: Alanine Aminotransferase 44 U/L (6-35); Albumin Level 3.6 g/dL (3.5-5.1); Alkaline Phosphatase 85 U/L (38-126); Anion Gap 9 mmol/L (4-12); Aspartate Amino Transferase 50 U/L (14-36); Bilirubin,Total 0.4 mg/dL (0.2-1.3); Blood Urea Nitrogen 15 mg/dL (7-17); Calcium 9.1 mg/dL (8.4-10.2); Carbon Dioxide 26 mmol/L (22-30); Chloride 104 mmol/L (98-107); Estimated Glomerular Filt Rate > 60; Glucose 135 mg/dL (65-110); Lipase 132 U/L (23-300); Potassium 4.3 mmol/L (3.4-5.0); Sodium 139 mmol/L (137-145)
[2024-06-16 23:30] LABS: INR 0.9; Prothrombin Time 12.8 Seconds (11.1-14.7)
[2024-06-16 23:31] LABS: Partial Thromboplastin Time 31.4 Seconds (22.3-36.8)
[2024-06-16] MEDS: MORPHINE SULFATE (*CRX) 4 MG/ML INJ IV PUSH (23:31)
[2024-06-16] MEDS: ALBUTEROL SULFATE NEB 2.5 MG/3 ML INH INHALATION (23:35)
[2024-06-16 23:36] VITALS: PULSE 98; RESP 18
[2024-06-16 23:38] LABS: D Dimer 0.27 ug/mL (<0.48); NT Pro B Type Natriuretic Pept 693 pg/mL (19.9-100); Troponin I < 0.012 ng/mL (0.000-0.034)
[2024-06-16 23:43] VITALS: PULSE 94; RESP 18
[2024-06-17 00:49] LABS: Add Urine Microscopic? YES; Appearance Urine Cloudy (Clear); Bacteria Urine 1+ /hpf; Bilirubin Urine Negative (Negative); Blood Urine 2+ (Negative); Color Urine Yellow (Yellow); Glucose Urine UA 1+ mg/dL (Negative); Ketones Urine Negative (Negative); Leukocyte Esterase Ur Negative LEU/UL (Negative); Nitrate Urine Negative (Negative); Protein Urine 3+ mg/dL (Negative); RBC Urine 0-2 /hpf (0-2); Specific Grav Ur 1.021 (1.001-1.035); Squamous Epithelial Cell Urine Moderate /hpf (Few); WBC Urine 0-5 /hpf (0-3)
[2024-06-17 03:04] LABS: Troponin I < 0.012 ng/mL (0.000-0.034)
[2024-06-17 03:36] VITALS: BP 173/92; PULSE 99; RESP 15; O2SAT 98
[2024-06-17] MEDS: AZITHROMYCIN 250 MG TABLET 500 MG PO (03:36)
== END 2024-06-17 03:41 | disposition home or self-care (01) ==
PROVIDERS: Emergency Provider Student in an Organized Health Care Education/Training Program; PCP Nurse Practitioner Family
DX: J10.00 Influenza due to other identified influenza virus with unspecified type of pneumonia (principal); R74.01 Elevation of levels of liver transaminase levels; R79.89 Other specified abnormal findings of blood chemistry; Z20.822 Contact with and (suspected) exposure to COVID-19; I25.2 Old myocardial infarction; I10 Essential (primary) hypertension; J45.909 Unspecified asthma, uncomplicated; E11.40 Type 2 diabetes mellitus with diabetic neuropathy, unspecified; E78.1 Pure hyperglyceridemia; E78.5 Hyperlipidemia, unspecified; K21.9 Gastro-esophageal reflux disease without esophagitis; K86.1 Other chronic pancreatitis; Z87.442 Personal history of urinary calculi; Z87.01 Personal history of pneumonia (recurrent); Z90.49 Acquired absence of other specified parts of digestive tract; Z89.422 Acquired absence of other left toe(s); R00.0 Tachycardia, unspecified; R94.31 Abnormal electrocardiogram [ECG] [EKG]; I45.10 Unspecified right bundle-branch block; Z97.5 Presence of (intrauterine) contraceptive device; R91.1 Solitary pulmonary nodule; N20.0 Calculus of kidney; K76.0 Fatty (change of) liver, not elsewhere classified; Z79.4 Long term (current) use of insulin; Z79.899 Other long term (current) drug therapy
CPT/HCPCS: 36415; 71045; 71260; 74177; 80053; 81001; 83690; 83880; 84484; 85025; 85380; 85610; 85730; 87637; 93005; 94640; 96374; 99284; A9270; J2270; J8540; Q9967

== ENCOUNTER 2024-08-19 22:20 | Emergency (ER) | payer OTHER, SELFPAY ==
--- NOTE | ~2024-08-19 | XR_ITS ---
XR knee RT 3V Ordering provider: Bryce Jensen PA-C History: . R knee pain and swelling . Comparison: None. FINDINGS: BONES: No acute fracture or dislocation. JOINT SPACES: Normal. SOFT TISSUES: Normal. IMPRESSION: No acute osseous abnormality right knee. Reviewed, dictated and finalized at location A.
[2024-08-19 22:21] VITALS: BP 145/80; PULSE 109; RESP 19; TEMP 36.5; O2SAT 98
--- OUTSIDE RECORDS SUMMARY | 2024-08-19 22:23 | XMS_ITS | Encounter Summary ---
Author Organization [facility] Healthcare Address [address] [place] [address] Care Team Providers Care Shirt Operator Name Role Phone Dejuan Malcolm MD Unavailable Chayito Sloan NP Primary Care Provider [phone] Dave Oliva MD Unavailable [phone] Johan Rogel MD Unavailable [phone] Tomas Gray MD Unavailable [phone] Encounter Details Date Type Department Care Team (Late st Contact Info) Description 10/03/2023 Orders Only [facility] Health Information Management [address] [place] [address] Gertrudis Farah DO [address] [place] [id number] Social History Tobacco Use Types Packs/Day Years Used Date Smoking Tobacco: Never [facility] Utilities Answer Date Recorded In the past 12 months has [employer], gas, oil, or water [employer] threatened to shut off services in your [...] week 10/05/2023 How often do you attend [facility] or confucianism services? Never 10/05/2023 Do you belong to any clubs o r organizations such as pentecostalism groups, unions, fraternal or athletic groups, or [...] place to sleep or slept in a nursing home (including now)? No 06/21/2023 Housing Stability Vital Sign Answer Rajan e Recorded In the last 12 months, was t here a time when you were not able to pay the mortgage or rent on time? No 10/05/2023 In the past 12 months, how m any times have you moved where you were living? 1 10/05/2023 At any time in the past 12 m [facility], were you homeless or living in a nursing home (including now)? No 10/05/2023 Personal Safety Answer [...] on file documented as of this encounter Functional Status * Audit-C Score Answer Date of Assessment Author 0 10/05/2023 3:46 PM CDT Raj Christopher RN * Question Answer Date of Assessment Author Q1: How often do you have a drink containing alcohol? Never 10/05/2023 3:46 PM CDT Daisy Christopher R N Q2: How many drinks containing alcohol do you have on a typical day when you are drinking? Patient does not drink 10/05/2023 3:46 PM CDT Daisy Christopher RN Q3: How often do you have six or more drinks on one occasion? Never 10/05/2023 3:46 PM CDT Daisy Christopher, R N documented as of this encounter Plan of Treatment Not on file documented as of this encounter Procedures Procedure Name Priority Date/Time Associated Diagnosis Comments CARDIOLOGY DOCUMENT SCAN 10/03/2023 documented in this encounter Results * Cardiology Document Scan (10/03/2023) Anatomical Region Laterality Modality Other [facility] Gagan DO CV CARDIAC SERVICES PROCEDURES Final Result documented in this encounter Visit Diagnoses Not on filedocumented in this encounter Additional Health Concerns Infection Onset Date Last Indicated Resolved Time MRSA Comment:Aren 10/14/23 10/14/2023 10/14/2023 04/11/2024 3:06 AM ASSOCIATION EXECUTIVE VRE Comment:Urine - 10/14/2023 10/14/2023 10/14/2023 04/11/2024 3: 06 AM ASSOCIATION EXECUTIVE documented as of this encounter Care Teams Shirt Operator Relationship Specialty Start Date End Date Chayito Sloan NP [address] [place] [address] PCP - General Nurse Practitioner 08/29/23 Dejuan Malcolm MD [address] [place] [address] Consulting Physician Gastroenterology 06/21/23 [place] [address] [place] [address] Surgeon Cardiothoracic Surgery 10/12/23 Johan Santillan MD [address] [facility] [address], [place] [address] Consulting Physician Interventional Cardiology 10/12/23 [place] [address] [facility] [address] [place], [place] [id number] Consulting Physician Endocrinology Diabetes & Metabolism 10/12/23 documented as of this encounter
--- OUTSIDE RECORDS SUMMARY | 2024-08-19 22:23 | XMS_ITS | Clinical Summary ---
Author Organization [facility] Address [facility] [place] [address] Care Team Providers Care Dock Loader Name Role Phone Alissa Webster MD Primary Care Provider [phone] Allergies No known active allergies Medications insulin [...] less, will sometimes take 1 Active pancrelipase, Zbd-Qoxd-Obuk, (CREON) 42110 UNIT CAPSULE ENTERIC COATED PARTICLES Take 1 [...] on file Legal Sex Female 10:05 AM CLINICAL SPECIALTY REP Gender Identity Not on file Sexual Orientation Not on file Last Filed Vital Signs Vital Sign Reading Time Taken Comments Blood Pressure 138/90 05/29/2023 9:45 AM CLINICAL SPECIALTY REP Pulse 87 05/29/2023 9:45 AM CLINICAL SPECIALTY REP Temperature 36.7 C (98.1 F) 05/29/2023 9:45 AM CLINICAL SPECIALTY REP Respiratory Rate 16 05/29/2023 9:45 AM CLINICAL SPECIALTY REP Oxygen Saturation 97% 05/29/2023 9:45 AM CLINICAL SPECIALTY REP Inhaled Oxygen Concentration - - Weight 93.9 kg (207 lb 0.2 oz) 05/29/2023 6:10 A M CLINICAL SPECIALTY REP Height 151.1 cm (4' 11.5 ) 05/22/2023 11:[address] Body Mass Index 41.11 05/22/2023 11:48 AM CLINICAL SPECIALTY REP Plan of Treatment Health Maintenance Due Date [...] 2023-2 5 season) 2024 Mammogram Screening 2024 HPV Vaccines Aged Out No longer [...] 5 Years) and At-Risk Patients (6 to 49 Years) Aged Out No longer eligi ble based on patient's age to complete this topic RSV Immunizations Under 20 Months Aged Out No longer eligible based on patient's age to complete this topic Insurance [employer] Care Teams Dock Loader Relationship Specialty Start Date End Date Alissa Webster MD [address] [place] [address] PCP - General INTERNAL MEDICINE 05/29/23
--- OUTSIDE RECORDS SUMMARY | 2024-08-19 22:23 | XMS_ITS | Referral Summary ---
Author Organization [facility] Address [address] [place] [address] Care Team Providers Care Worship Director Name Role Phone Dejuan Malcolm MD Unavailable Chayito Sloan NP Primary Care Provider [phone] Johan Rogel MD Unavailable Tomas Gray MD Unavailable [phone] Encounters Date Type Department Care Team Description 08/06/2024 9:00 AM CDT Office Visit [facility] Medical Group Diabetes Endocrine Care at [address] [address] Savanna Rogel DO Type 2 diabetes mellitus with hyperglycemia, with long-term current use of insulin (HCC) (Primary Dx); Hyperlipidemia associated with type 2 diabetes mellitus (HCC) 07/31/2024 Orders Only [facility] Medical Group Diabetes Endocrine Care at [address] [address] Savanna Rogel DO 06/27/2024 Orders Only [facility] Medical Group Diabetes Endocrine Care at [address] [address] Savanna Rogel DO from Last 3 Months Allergies No known [...] extended release tabletIndications :Coronary artery disease involving [place] coronary artery of [place] heart without angina pectoris Take 1 tablet [...] Active insulin lispro (HumaLOG, ADMELOG) 100 unit/mL vial for injection Maximum daily dose 270 units via insulin pump 100 mL 6 08/03/19 25 Active insulin lispro (HumaLOG, ADMELOG) 100 unit/mL vial for injection Maximum daily dose 100 units via insulin pump 100 mL 6 06/27/19 25 025 Discontin ued(Reord er) insulin lispro (HumaLOG, ADMELOG) 100 unit/mL vial for injection Maximum daily dose 270 units via insulin pump 100 mL 6 08/01/19 25 025 Discontin ued(Reord er) Active Problems Problem Noted Date Diagnosed Date Nondisplaced fracture of med ial malleolus of left tibia, initial encounter for closed fracture 10/18/2023 Syncope and collapse 10/14/2023 S/P CABG (coronary artery bypass graft) 10/09/19 Sepsis without acute organ dysfunction Leukocytosis 10/05/2023 Hypertension 10/05/2023 Depression 10/05/2023 NSTEMI (non-ST elevated myocardial infarction) 0 10/05/2023 Coronary artery disease invo lving [place] coronary artery of [place] heart without angina pectoris 10/04/2023 Morbid obesity with BMI of 40.0-44.9, adult 09/06 Chronic pancreatitis 10/04/2023 Kidney stones 10/04/2023 Type 2 diabetes [...] Resolved Date 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 Never 10/16/2023 Do you belong to any clubs o r organizations such as mormonism groups, unions, fraternal or athletic groups, or [...] place to sleep or slept in a intermediate (including now)? No 06/21/2023 Housing Stability Vital Sign Answer Rajan e Recorded In the last 12 months, was t here a time when you were not able to pay the mortgage or rent on time? No 10/16/2023 In the past 12 months, how m any times have you moved where you were living? 0 10/16/2023 At any time in the past 12 m [facility], were you homeless or living in a intermediate (including now)? No 10/16/2023 Personal Safety Answer [...] Sign Reading Time Taken Comments Blood Pressure 132/80 08/06/2024 9:07 AM CDT Pulse 100 08/06/2024 9:07 AM CDT Temperature 35.8 C (96.5 F) 01/04/2024 10:50 AM CDT Respiratory Rate 20 01/04/2024 10:50 AM CDT Oxygen Saturation 95% 04/11/2024 10:20 AM AIR CHIEF MARSHAL Inhaled Oxygen Concentration - - Weight 104.6 kg (230 lb 8 oz) 08/06/2024 9:07 AM CDT Height 149.9 cm (4' 11 ) 08/06/2024 9:07 AM CDT Body Mass Index 46.56 08/06/2024 9:07 AM CDT Plan of Treatment Not on file Medical Devices Implanted Type Area Director Craft Center Device Identifier Shelf Expiration Date Model / Serial / Lot [employer] Low Profile Screws 4mm 40mm Modular Self Drill Self Tap [id number]-40 - [id number] Implanted:Qty: 1 on 10/18/2023 by Mario Correa Jr., MD at [facility] Left: Ankle [employer] [id number]-40 / / Explanted Type Area Director Craft Center Device Identifier Shelf Expiration Date Model / Serial / Lot Schuster [employer] Schuster 5fr 9cm Pancreatic Stent [id number] - [id number] Implanted:Qty: 1 on 06/19/2023 by Dejuan Malcolm MD at [facility] Explanted:Qty: 1 on 06/21/2023 by Dejuan Malcolm MD at [facility] Stent [employer] 02/06/2028 [id number] / / [id number] [employer] Gina Wallflex 8mm 8.5fr 60mm 194cm Rapid Exchange Full Cover Closed [id number] - [id number] Implanted:Qty: 1 on 06/19/2023 by Dejuan Malcolm MD at [facility] Explanted:Qty: 1 on 06/21/2023 by Dejuan Malcolm MD at [facility] Stent N/A: Bile Duct [employer] Gina 02/07/2025 [id number] / / [id number] Procedures Procedure Name Priority Date/Time Associated Diagnosis Comments POCT HEMOGLOBIN A1C Routine 08/06/2024 9 :17 AM CDT Type 2 diabetes mellitus with hyperglycemia, with long-term current use of insulin (HCC) COMPREHENSIVE METABOLIC PANEL Routine 05/20/2024 ALBUMIN CREATININE RATIO, URINE Routine 04/26/2024 10:55 AM AIR CHIEF MARSHAL Type 2 diabetes mellitus with other circulatory complication, with long-term current use of insulin (HCC) RETINAVUE SCANNER - OU - BOTH EYES Routine 04/19/2024 Type 2 diabetes mellitus with other circulatory complication, with long-term current use of insulin (HCC) LIPID PANEL Routine 10/04/2023 10:55 PM CDT from Last 3 Months or Most Recently Relevant to Health Maintenance Results * POCT hemoglobin A1c (08/06/2024 9:17 AM CDT) Pathologist [facility] Hemoglobin A1C, POC 8.6 4.0 - 5.6 % Blood 08/06/2024 9:17 AM CDT Savanna Rogel DO POINT OF CARE TEST ORDERABL ES Final Result * Comprehensive metabolic panel (05/20/2024) SCRIBED Sodium 139 - - - mmol/L EXTERNAL LAB SCRIBED Potassium 4.6 - - - mmol/L EXTERNAL LAB SCRIBED Chloride 105 - - - mmol/L EXTERNAL LAB SCRIBED Carbon Dioxide 22 - - - mmol/L EXTERNAL LAB SCRIBED Anion Gap 16.6 - - - mmol/L EXTERNAL LAB SCRIBED Urea Nitrogen (BUN) 11 - - - mg/dl EXTERNAL LAB SCRIBED Creatinine 0.95 - - - mg/dl EXTERNAL LAB SCRIBED Glucose 175 - - - mg/dl EXTERNAL LAB SCRIBED Calcium 9.2 - - - mg/dl EXTERNAL LAB SCRIBED Bilirubin 0.2 - - - mg/dl EXTERNAL LAB SCRIBED Plasma Protein 8.1 - - - g/dl EXTERNAL LAB SCRIBED Albumin 3.6 - - - g/dl EXTERNAL LAB SCRIBED Alkaline Phosphatase 94 - - - Units/L EXTERNAL LAB SCRIBED Alanine Transaminase (ALT) 38 - - - Units/L EXTERNAL LAB SCRIBED Aspartate Transaminase (AST) 48 - - - Units/L EXTERNAL LAB SCRIBED eGFR in >60 - - - EXTERNAL LAB SCRIBED eGFR in NonAfrican Chinese >60 - - - EXTERNAL LAB Blood 05/20/2024 Historical Provider MD LAB BLOOD ORDERABLES Marilyn l Result EXTERNAL LAB * (ABNORMAL) Albumin Creatinine Ratio, Urine (04/26/2024 10:55 AM AIR CHIEF MARSHAL) Albumin Ur 933.1 mg/L Comment: Interpretive Data No reference range established. Current interpretive data was last revised 2018. Testing performed by: [facility], [address] [place] [address]., [address] Creatinine Ur 55.6 mg/dL JUSTINE [facility] (NINI) Comment: Interpretive Data No reference range established. Current interpretive data was last revised 2018. Testing performed by: [facility], [address] [place] [address]., [address] Albumin Creatinine Ratio, Ur 1,678(H) 1 - 29 mg/g JUSTINE [facility] (NINI) Comment:Testing performed by : [address] [address] Urine 04/26/2024 10:5 5 AM AIR CHIEF MARSHAL 04/26/2024 5:35 PM AIR CHIEF MARSHAL Savanna Rogel DO LAB URINE ORDERABLES Final Result JUSTINE [facility] (NINI) [address] [facility] Department [place] [address] * RetinaVue Scanner - OU - Both [...] on 2017. HDL 47 >=40 mg/dL JUSTINE Comment: Interpretive Data Ages < [...] BLOOD ORDERABLES Fin al Result JUSTINE [facility] [address] [address] [place] [address] from Last 3 Months or Most Recently Relevant to Health Maintenance Insurance [facility] Advance Directives For more information, please contact: [phone] * Full Code (Latest Code Status on File) Date Activated Date Inactivated Comments 10/18/2023 2:29 PM 10/23/2023 8:08 PM * Full Code Date Activated Date Inactivated Comments 10/14/2023 8:30 PM 10/18/2023 2:29 PM * Full Code Date Activated Date Inactivated Comments 10/04/2023 10:25 PM 10/12/2023 11:11 PM * Full Code Date Activated Date Inactivated Comments 06/20/2023 9:18 AM 06/21/2023 11:05 PM Care Teams Worship Director Relationship Specialty Start Date End Date Chayito Sloan NP [address] [place] [address] PCP - General Nurse Practitioner 08/29/23 Dejuan Malcolm MD [address] [place] [address] Consulting Physician Gastroenterology 06/21/23 Johan Rogel MD [address] [place] [address] Consulting Physician Interventional Cardiology 10/12/23 [place] [address] [place] [address] Consulting Physician Endocrinology Diabetes & Metabolism 10/12/23
--- OUTSIDE RECORDS SUMMARY | 2024-08-19 22:23 | XMS_ITS | Encounter Summary ---
Author Organization [facility] Address [address] [facility] [place] [address] Phone Care Team Providers Care Milk Truck Driver Name Role Phone Nathalia, Chayito CHAVEZ CNP Primary Care Provider [phone] Broderick Perez MD Unavailable Albert Olivera MD Unavailable Reason for Visit * Reason Comments Medication Refill Encounter Details Date Type Department Care Team (Late st Contact Info) Description 08/11/2024 Refill [facility] - End[facility]ology - [place] [address] [place] [address] Broderick Perez MD [address] [address] Medication Refill Social History Tobacco Use Types Packs/Day Years Used Date Smoking Tobacco: Never Smokeless Tobacco: Never Alcohol Use Standard Drinks/Week Comments Not Currently 0 (1 standard drink = 0.6 oz pur e alcohol) Sexually Active Control Partners Comments Yes Comments Unknown Sex and Gender Information Value Date Recorded Sex Assigned at Not on file Legal Sex Female 8:35 AM SALESFORCE CONSULTANT Gender Identity Not on file Sexual Orientation Not on file documented as of this encounter Miscellaneous Notes * Telephone Encounter - Broderick Perez MD - 08/19/2024 12:51 PM CDT Rx sent * Telephone Encounter - Cally Patel, RN - 08/19/2024 9:51 AM CDT Requested Prescriptions Pending Prescriptions Disp Refills metFORMIN (GLUCOPHAGE) 500 MG Tablet [Pharmacy Med Name: METFORMIN HCL 500 MG TABLET] 360 Tablet 1 Sig: TAKE 2 TABLETS BY MOUTH TWICE A DAY WITH MEALS documented in this encounter Plan of Treatment Upcoming Encounters Date Type Department Care Team (Late st Contact Info) Description 10/21/2024 11:00 AM CDT Office Visit [facility] - [facility]rology [facility] [address] [place] [phone] Albert Olivera MD [address] [place] [phone] 01/31/2025 10:45 AM CDT Office Visit [facility] [address] [place] [address] Marlon Schultz MD [address] [address] documented as of this encounter Visit Diagnoses Not on filedocumented in this encounter Care Teams Milk Truck Driver Relationship Specialty Start Date End Date Chayito Sloan APRN, CNP [address] [place] [address] PCP - General Family Medicine 11/22/23 Broderick Perez MD [address] [address] Consulting Physician Endocrinology 01/02/24 Albert Olivera MD [address] [place] [address] Consulting Physician Neurology 01/23/24 documented as of this encounter
--- OUTSIDE RECORDS SUMMARY | 2024-08-19 22:23 | XMS_ITS ---
Author Organization [facility] Address [address] [place] [address] Care Team Providers Care Rocket Scientist Name Role Phone Darin SHAH, Alissa Primary Care Provider Unavail able MIQUEL SWING MANAGER, JAYANT Unavailable Oliver SHAH, Lacho Unavailable Unavailable NANDO SHAH, BAILEY Unavailable REASON FOR VISIT ERCP w/stone extraction Encounters Encounter Location Date Provider Diagnosis [facility] - Op [address] Scheduling [place], [place] [id number] 10/20/2023 BAILEY COLLIER PLAN OF TREATMENT No Information Progress Notes * Gem MORALES DDOB: [birth year] (39 yo F)Acc No.[id number]:10/20/2023 Patient: Gem MORALES Provider: Bailey Collier MD, FASGE :1985 Age:38 Y Sex:Female Date:10/20/2023 Address:[address], [facility] Pcp:Gemini Lincoln * Images: * Sign off status: Pending * Provider: Bailey Collier MD, FASGE Date: 10/20/2023
--- OUTSIDE RECORDS SUMMARY | 2024-08-19 22:23 | XMS_ITS | Patient Health Record ---
Author Organization [facility] Address [address] [place] [address] Care Team Providers Care Ledger Poster Name Role Phone Darin SHAH, Alissa Primary Care Provider Unavail able MIQUEL CERDA, JAYANT Unavailable Oliver SHAH, Lacho Unavailable Unavailable NANDO SHAH, BAILEY Unavailable ALLERGIES No Known Allergies REASON FOR REFERRAL No Information MEDICATIONS Medication SIG (Take, Route, Frequency, Duration) Notes Start Date End Date Status Lantus 40units at [facility] Activ e Creon [id number] UNIT as directed Orall y Take 2 with meals. Max 6/day for 30 days Active HumaLOG Active Gabapentin 600 MG 1 tablet Orally thre e times a day Active PROBLEMS Problem Type ICD Code Onset Dates Problem Status W/U Status Risk SNOMED Code Notes Problem Other chronic pancreatitis (K86.1) Active confirmed Chronic pancreatitis (858670366) Encounters Encounter Location Date Provider Diagnosis [facility] - Op [address] GI Scheduling [place], [place] [id number] 10/18/2023 BAILEY ALIPERTI [facility] - Op [address] GI Scheduling [place], [place] [id number] 10/20/2023 BAILEY ALIPERTI [facility] - Op [address] GI Scheduling [place], [place] [id number] 10/20/2023 BAILEY ALIPERTI [facility] [address] [place] [address] 09/22/2023 JAYANT LAFLEUR PLAN OF TREATMENT Pending Test Test Name Order Date Endoscopic Retrograde Cholangiopancreato graphy (ERCP) 05/11/2023 Endoscopic Retrograde Cholangiopancreato graphy (ERCP) 09/22/2023 Insurance Providers Payer Name Payer Address Payer Phone Subscriber Number Group Number Insured Name Patient Relationship to Insured Coverage Start Date Coverage End Date [address] [id number] Gem Morales Self - patient is the insured MEDICAL (GENERAL) HISTORY Medical History History ICD Code diabetes mellitus anxiety kidney stones Surgical History Surgery Date(Month/Year) tonsillectomy toe amputation cholecystectomy
--- OUTSIDE RECORDS SUMMARY | 2024-08-19 22:23 | XMS_ITS | Clinical Summary ---
Author Organization [facility] Address [address] [place] [address] Phone Care Team Providers Care Manager Photo Name Role Phone Nathalia, Chayito CHAVEZ CNP Primary Care Provider [phone] Broedrick Perez MD Unavailable Albert Olivera MD Unavailable [phone] Allergies Active Allergy Reactions Criticality Noted Date Comments Wound Dressing Adhesive Rash 05/20/2024 Medications ibuprofen (MOTRIN) 800 MG Tablet Take 800 mg by mouth every 6 hours as needed. Active atorvastatin (LIPITOR) 20 MG Tablet Take 20 mg by mouth daily. Active pancrelipase, lipase-proteas e-amylase, (Creon) [id number] Capsule DR Particles Take 1 Capsule by [...] (HCC) Every 10 days 9 Each 1 01/10/20 24 Active Continuous Glucose Staff Services Manager (Dexcom G7 Staff Services Manager) DeviceIndicati ons:Type 2 diabetes mellitus with diabetic polyneuropathy , with long-term current use of insulin (HCC) Check blood sugar before each meal and at bedtime 1 Each 01/10/20 24 Active Glucose Blood (OneTouch Ultra) Strip 4 times a day 400 Each 3 01/10/20 24 Active Blood Glucose Monitoring Suppl (ONE TOUCH ULTRA 2) w/Device Kit Check blood glucose before each meal and at bedtime 1 Each 01/10/20 24 Active insulin glargine (Lantus SoloStar) 100 UNIT/ML Solution Pen-injector 40 Units by Subcutaneous route nightly. 30 mL 1 01/10/20 24 Active Additional Information Patient not taking.Reported on 08/02/2024 Insulin Lispro, 1 Unit Dial, (HumaLOG KwikPen) 100 UNIT/ML Solution Pen-injector 15 units before each meal; correctional factor insulin of 1:15 if >140 mg/dL, up to 70 units/day 60 mL 1 01/10/20 Active Insulin Pen Needle (Pen [place]) 31G X 6 MM Misc 4 times a day 400 Each 3 01/10/20 Active Additional Information Patient not taking.Reported on 08/02/2024 Lancets Misc 4 times a day 400 Lancet . 3 01/10/20 Active Additional Information Patient not taking.Reported on 08/02/2024 Continuous Glucose Transmitter (Guardian 4 Transmitter) Misc USE with Guardian 4 Sensors TO monitor blood glucose as directed 06/03/19 25 Active DULoxetine (CYMBALTA) [address] Particles TAKE 1 CAPSULE BY MOUTH TWICE A DAY 60 Capsule 3 08/13/19 25 Active metFORMIN (GLUCOPHAGE) 500 MG Tablet TAKE 2 TABLETS BY MOUTH TWICE A DAY WITH MEALS 360 Tablet 08/20/19 25 Active metFORMIN (GLUCOPHAGE) 500 MG Tablet Take 2 Tablets by mouth 2 times daily (with meals). 360 Tablet 1 01/10/20 24 025 Discontinued DULoxetine (CYMBALTA) [address] Particles Take 1 Capsule by mouth 2 times daily. 60 Capsule 3 04/22/20 24 025 Discontinued Active Problems Problem Noted Date Diagnosed Date Type 2 diabetes mellitus wit h diabetic polyneuropathy, with long-term current use of insulin 01/10/2024 Encounters Date Type Department Care Team Description 08/11/2024 Refill [facility] - [place] [address] [place] [phone] Broderick Perez MD Medication Refill 08/09/2024 [facility] - Neurology - [place] [address] [place] [address] Albert Olivera MD Medication Refill 08/02/2024 2:45 PM CDT Office Visit [facility] UROLOGY [address] [place] [address] Marlon Schultz MD Kidney stone (Primary Dx) Discharge Disposition: Discharged to home or Selfcare 08/02/2024 Travel 05/29/2024 4:45 PM COTTRELL BLOWER - 05/29/2024 11:59 PM COTTRELL BLOWER [facility] Diagnostic Radiology [address] [place] [address] Chayito Sloan APRN, CNP Discharge Disposition: Discharged to home or Selfcare 05/29/2024 Travel 05/29/2024 Transcribe Orders [facility] Central Scheduling [address] [place] [address] Chayito Sloan APRN, CNP Lumbar radiculopathy (Primary Dx) 05/20/2024 9:34 PM COTTRELL BLOWER - 05/21/2024 12:09 AM COTTRELL BLOWER Emergency [facility] Emergency [address] [place] [address] Donte Palomares DO Kidney stones Discharge Disposition: Discharged to home or Selfcare from Last 3 Months Immunizations Immunization Administration Dates Next Due Human Papillomavirus (HPV) Vaccine, Bivalent Human Papillomavirus Vaccine (HPV), quadrivalent 01/04/2007,11/03/2006 MMR Vaccine 04/27/1993 Pneumococcal conjugate PCV20 , polysaccharide [id number] conjugate, adjuvant, PF 08/17/2021 TDAP Vaccine 11/03/2006 [...] on file Legal Sex Female 8:35 AM COTTRELL BLOWER Gender Identity Not on file Sexual Orientation Not on file Last Filed Vital Signs Vital Sign Reading Time Taken Comments Blood Pressure 166/97 08/02/2024 2:53 PM CDT Pulse 99 08/02/2024 2:53 PM CDT Temperature 36.6 C (97.9 F) 05/20/2024 9:29 PM COTTRELL BLOWER Respiratory Rate 14 08/02/2024 2:53 PM CDT Oxygen Saturation 99% 08/02/2024 2:53 PM CDT Inhaled Oxygen Concentration - - Weight 96.6 kg (213 lb) 08/02/2024 2:53 PM CDT Height 149.9 cm (4' 11 ) 05/20/2024 9:29 PM COTTRELL BLOWER Body Mass Index 43.02 05/20/2024 9:29 PM COTTRELL BLOWER Plan of Treatment Upcoming Encounters Date Type Department Care Team (Late st Contact Info) Description 10/21/2024 11:00 AM CDT [facility] - [place] [address] [place] [address] Albert Olivera MD [address] [place] [address] 01/31/2025 10:45 AM CDT Office Visit [facility] UR[facility] [address] [place] [address] Marlon Schultz MD [address] [address] Health Maintenance Due Date Last Done Comments Diabetes: Eye Exam 1985 Hepatitis C Virus (HCV) Screening 1985 Mammogram 1985 Hepatitis B Immunization (1 of 3 - 19+ 3-dose series) 01/22/2003 Pap Smear 01/22/2005 Cervical Cancer Screening (CCS) 01/22/2014 HPV/Cotest 01/22/2014 Td Immunization Every 10 Years (Adults With 1 Tdap) 06/22/2023 06/22/2013, 11/03/2006 SARS-COV-2 Immunization ( season) 2024 08/17/2021, 07/20/2021 Discussion re Starting/Frequency of Mammograms 2024 Diabetes: Hemoglobin A1c 10/18/2024 024, 01/10/2024, 10/04/2023 Influenza Immunization (Season Ended) 2025 Diabetes: Foot Exam 01/09/2025 01/10/2024 Diabetes: Nephropathy [...] OR 3 VIEWS Routine 05/29/2024 4:55 PM COTTRELL BLOWER Lumbar radiculopathy CMP (COMPREHENSIVE METABOLIC PANEL) STAT 05/20/2024 9:44 PM COTTRELL BLOWER POCT GLYCOSYLATED HEMOGLOBIN Routine 01/10/2024 10:34 AM CDT Type 2 diabetes mellitus with diabetic polyneuropathy, with long-term current use of insulin (HCC) from Last 3 Months or Most Recently Relevant to Health Maintenance Results * XR LUMBAR SPINE 2 OR 3 VIEWS (05/29/2024 4:55 PM COTTRELL BLOWER) Anatomical Region Laterality Modality Spine, L-spine N/A Digital Radiogra phy 05/30/2024 8:28 AM COTTRELL BLOWER Impressions 05/30/2024 8:31 AM COTTRELL BLOWER IMPRESSION: Mild diffuse lumbar degenerative disc disease. Narrative 05/30/2024 8:31 AM COTTRELL BLOWER EXAM DESCRIPTION: XR LUMBAR SPINE 2 OR [...] Luis Ricks M.D. MF: [id number] Report ID: [id number] Reading Location: [id number] Procedure Note Luis Ricks MD - 05/30/2024 [...] Luis Ricks M.D. MF: [id number] Report ID: [id number] Reading Location: [id number] IMPRESSION: Mild diffuse lumbar degenerative disc disease. [facility] Sloan BATTER DEPOSITOR, AUTO GLASS TECHNICIAN IMG DIAGNOSTIC ORDERABLES Final Result * (ABNORMAL) CMP (Comprehensive Metabolic Panel) (05/20/2024 9:44 PM COTTRELL BLOWER) SODIUM 139 136 - 145 mmol/L 05/20/2024 10:34 PM COTTRELL BLOWER [facility] POTASSIUM 4.6 3.5 - 5.1 mmol/L 05/20/2024 10:34 PM COTTRELL BLOWER [facility] CHLORIDE 105 98 - 107 mmol/L 05/20/2024 10:34 PM [facility] CO2, VENOUS 22 22 - 30 mmol/L 05/20/2024 10:34 PM [facility] ANION GAP 16.6 <18.0 mmol/L 05/20/2024 10:34 PM [facility] GLUCOSE 175(H) 70 - 99 mg/dL 05/20/2024 10:34 PM [facility] BUN 11 5 - 18 mg/dL 05/20/2024 10:34 PM [facility] CREATININE, BLOOD 0.95 0.60 - 1.00 mg/dL 05/20/2024 10:34 PM [facility] BUN/CREATININE RATIO 12 12 - 20 ratio 05/20/2024 10:34 PM [facility] TOTAL PROTEIN 8.1 6.3 - 8.2 g/dL 05/20/2024 10:34 PM [facility] ALBUMIN 3.6 3.5 - 5.0 g/dL 05/20/2024 10:34 PM [facility] A/G RATIO 0.8(L) 1.0 - 2.2 05/20/2024 10:34 PM [facility] CALCIUM 9.2 8.7 - 10.5 mg/dL 05/20/2024 10:34 PM [facility] T BILI 0.2 0.2 - 1.2 mg/dL 05/20/2024 10:34 PM [facility] SGOT (AST) 48(H) 5 - 34 U/L 05/20/2024 10:34 PM [facility] SGPT (ALT) 38 0 - 55 U/L 05/20/2024 10:34 PM [facility] ALKALINE PHOSPHATASE 94 40 - 150 U/L 05/20/2024 10:34 PM [facility] GFR, ESTIMATED >60 >=60 05/20/2024 10:34 PM [facility] Comment: Creatinine Clearance is the preferred criteria for selecting drug dose adjustments in renally impaired patients. The GFR is provided as additional pertinent clinical information. GFR is reported in mL/min/1.73 sq m. Calculation based on the Chronic Kidney Disease Epidemiology Collaboration (CKD- EPI) equation refit without adjustment for race. GFR, EST. >60 >=60 025 10:34 PM COTTRELL BLOWER [facility] GFR, EST. NONAFRICAN >60 >=60 05/20/2024 10:34 PM COTTRELL BLOWER [facility] Blood Venipuncture / Unknown 05/20/2024 9:44 PM COTTRELL BLOWER 05/20/2024 10:03 PM COTTRELL BLOWER us Donte Palomares DO CHEMISTRY ORDERABLES Fi nal Result [facility] [address] [place] [address] * (ABNORMAL) POCT GLYCOSYLATED HEMOGLOBIN (01/10/2024 10:34 AM CDT) HGB-A1C 10.1(A) 4 - 6 % Blood 01/10/2024 10:3 4 AM CDT us Broderick Perez MD POINT OF CARE TESTING (MANUAL) F inal Result from Last 3 Months or Most Recently Relevant to Health Maintenance Insurance MEDICAID [place] Care Teams Manager Photo Relationship Specialty Start Date End Date Sloan, SCOTT Stratton, AUTO GLASS TECHNICIAN [address] [place] [address] PCP - General Family Medicine 11/22/23 Broderick Perez MD [address] [phone] Consulting Physician Endocrinology 01/02/24 Albert Olivera MD [address] [place] [address] Consulting Physician Neurology 01/23/24
--- OUTSIDE RECORDS SUMMARY | 2024-08-19 22:23 | XMS_ITS ---
Author Organization [facility] Address [address] [place] [address] Care Team Providers Care Load Out Person Name Role Phone Darin SHAH, Alissa Primary Care Provider Unavail able MIQUEL ICE PULLER, JAYANT Unavailable Oliver SHAH, Lacho Unavailable Unavailable NANDO SHAH, BAILEY Unavailable REASON FOR VISIT ESWL Admit to Sandrine Encounters Encounter Location Date Provider Diagnosis [facility] - Op [address] Scheduling [place], [place] [id number] 10/20/2023 BAILEY COLLIER PLAN OF TREATMENT No Information Progress Notes * MORALES, Gem DDOB: [birth year] (39 yo F)Acc No.[id number]:10/20/2023 Patient: Gem MORALES Provider: Bailey Collier MD, FASGE :1985 Age:38 Y Sex:Female Date:10/20/2023 Address:[address], [facility] Pcp:Gemini Lincoln * Images: * Sign off status: Pending * Provider: Bailey Collier MD, FASGE Date: 10/20/2023
--- OUTSIDE RECORDS SUMMARY | 2024-08-19 22:23 | XMS_ITS | Clinical Summary ---
Author Organization [facility] Address [address] [place] [address] Care Team Providers Care Gate Person Name Role Phone Dejuan Malcolm MD Unavailable [phone] Chayiot Sloan NP Primary Care Provider [phone] Johan Rogel MD Unavailable [phone] Tomas Gray MD Unavailable [phone] Allergies No known active allergies Medications pancrelipase [...] extended release tabletIndications :Coronary artery disease involving tejon coronary artery of tejon heart without angina pectoris Take 1 tablet [...] 0 10/05/2023 Coronary artery disease invo lving tejon coronary artery of tejon heart without angina pectoris 10/04/2023 Morbid obesity with BMI of 40.0-44.9, adult 09/06 Chronic pancreatitis 10/04/2023 Kidney stones 10/04/2023 Type 2 diabetes mellitus, wi long-term current use of insulin 10/04/2023 Dyslipidemia [...] Description 08/06/2024 9:00 AM CDT Office Visit [facility] Medical Group Diabetes Endocrine Care at [address] [address] Savanna Rogel, Type 2 diabetes mellitus with hyperglycemia, with long-term current use of insulin (HCC) (Primary Dx); Hyperlipidemia associated with type 2 diabetes mellitus (HCC) 07/31/2024 Orders Only [facility] Medical [facility] Diabetes Endocrine Care at [address] [place] [address] Savanna Rogel DO 06/27/2024 Orders Only [facility] Medical Group Diabetes Endocrine Care at [address] [place] [address] Savanna Rogel DO from Last 3 Months Surgical History Surgery [...] materials from doctor or pharmacy Never 01/04/2024 [facility] Utilities Answer Date Recorded In the past 12 months has e [employer], gas, oil, or water [employer] threatened to shut off services in your [...] often do you attend chur ch or jainism services? Never 10/16/2023 Do you belong to any clubs o r organizations such as yarsani groups, unions, fraternal or athletic groups, or [...] any time in the past 12 m [facility], were you homeless or living in a half-way (including now)? No 10/16/2023 Personal Safety Answer [...] CDT Oxygen Saturation 95% 04/11/2024 10:20 AM DISASTER RECOVERY COORDINATOR Inhaled Oxygen Concentration - - Weight 104.6 kg (230 lb 8 oz) 08/06/2024 9:07 AM CDT Height 149.9 cm (4' 11 ) 08/06/2024 9:07 AM CDT Body Mass Index 46.56 08/06/2024 9:07 AM CDT Plan of Treatment Health Maintenance Due Date [...] - 2023-2 5 season) 2024 08/17/2021, 07/20/2021 Lipid Panel 10/03/2024 10/04/2023 Influenza Vaccine (Season Ended) 2025 Hemoglobin A1C 02/05/2025 08/06/2024, 04/07, 10/04/2023 Dilated Eye Exam 04/19/2025 04/19/2024 Foot Exam 04/19/2025 04/19/2024 Albumin Creatinine Ratio, Urine 04/26/2025 eGFR 05/20/2025 05/20/2024, 05/08, 05/20/2024, Additional history exists HPV Vaccines Completed 05/04/2007, 12/08, 11/03/2006 Pneumococcal vaccine <65 Completed 08/17/2021 Medical Devices Implanted Type Area Forestry Biology Specialist Device Identifier Shelf Expiration Date Model / Serial / Lot [employer] Low Profile Screws 4mm 40mm Modular Self Drill Self Tap [id number]-[id number]-40 - [id number] Implanted:Qty: 1 on 10/18/2023 by Mario Correa Jr., MD at [facility] Left: Ankle [employer] AR-8840C-40 / / Explanted Type Area Forestry Biology Specialist Device Identifier Shelf Expiration Date Model / Serial / Lot [employer] Schuster 5fr 9cm Pancreatic Stent [id number] - [id number] Implanted:Qty: 1 on 06/19/2023 by Dejuan Malcolm MD at [facility] Explanted:Qty: 1 on 06/21/2023 by Dejuan Malcolm MD at [facility] Stent [employer] Inc 02/06/2028 [id number] / / [id number] [employer] Gina Wallflex 8mm 8.5fr 60mm 194cm Rapid Exchange Full Cover Closed [id number] - [id number] Implanted:Qty: 1 on 06/19/2023 by Dejuan Malcolm MD at [facility] Explanted:Qty: 1 on 06/21/2023 by Dejuan Malcolm MD at [facility] Stent N/A: Bile Duct [employer] Gina 02/07/2025 [id number] / / [id number] Procedures Procedure Name Priority Date/Time Associated Diagnosis Comments POCT HEMOGLOBIN A1C Routine 08/06/2024 9 :17 AM CDT Type 2 diabetes mellitus with hyperglycemia, with long-term current use of insulin (HCC) COMPREHENSIVE METABOLIC PANEL Routine 05/20/2024 ALBUMIN CREATININE RATIO, URINE Routine 04/26/2024 10:55 AM DISASTER RECOVERY COORDINATOR Type 2 diabetes mellitus with other [...] POCT hemoglobin A1c (08/06/2024 9:17 AM CDT) Hemoglobin A1C, POC 8.6 4.0 - 5.6 [...] - EXTERNAL LAB SCRIBED eGFR in NonAfrican Jordanian >60 - - - EXTERNAL LAB Blood 05/20/2024 [facility] Provider LAB BLOOD ORDERABLES Marilyn l Result Performing Organization Address City/[facility]/ZIP Co de Phone Number EXTERNAL LAB * (ABNORMAL) Albumin Creatinine Ratio, Urine (04/26/2024 10:55 AM DISASTER RECOVERY COORDINATOR) Pathologist [facility] Albumin Ur 933.1 mg/L Comment: Interpretive Data No reference range established. Current interpretive data was last revised 2018. Testing performed by: [facility], [address] [place] [address]., [id number] Creatinine Ur 55.6 mg/dL [facility] (NINI) Comment: Interpretive Data No reference range established. Current interpretive data was last revised 2018. Testing performed by: [facility], [address] [place] [address]., [id number] Albumin Creatinine Ratio, Ur 1,678(H) 1 - 29 mg/g [facility] ([place]) Comment:Testing performed by : [facility], [address] [place] [address]., [address] Urine 04/26/2024 10:5 5 AM DISASTER RECOVERY COORDINATOR 04/26/2024 5:35 PM DISASTER RECOVERY COORDINATOR Savanna Rogel DO LAB URINE ORDERABLES Final Result Performing Organization Address [facility] Co de Phone Number [facility] (NINI) 1 [facility] [place] [address] * RetinaVue Scanner - OU - Both [...] 2017. LDL, calculated 67 <=129 mg/dL JUSTINE Comment: Interpretive Data Ages < [...] BLOOD ORDERABLES Fin al Result JUSTINE PENA [address] [place] [address] from Last 3 Months or Most Recently Relevant to Health Maintenance Insurance [facility] Advance Directives For more information, please contact: [phone] * Full Code (Latest Code Status on File) Date Activated Date Inactivated Comments 10/18/2023 2:29 PM 10/23/2023 8:08 PM * Full Code Date Activated Date Inactivated Comments 10/14/2023 8:30 PM 10/18/2023 2:29 PM * Full Code Date Activated Date Inactivated Comments 10/04/2023 10:25 PM 10/12/2023 11:11 PM * Full Code Date Activated Date Inactivated Comments 06/20/2023 9:18 AM 06/21/2023 11:05 PM Care Teams Gate Person Relationship Specialty Start Date End Date Chayito Sloan NP [address] [place] [address] PCP - General Nurse Practitioner 08/29/23 Dejuan Malcolm MD [address] [facility] [address] [place] [address] Consulting Physician Gastroenterology 06/21/23 Johan Rogel MD [address] [facility] [address], [place] [address] Consulting Physician Interventional Cardiology 10/12/23 [place] [address] [address] [facility] [address] [place] [address] Consulting Physician Endocrinology Diabetes & Metabolism 10/12/23
--- OUTSIDE RECORDS SUMMARY | 2024-08-19 22:23 | XMS_ITS | Encounter Summary ---
Author Organization [facility] Address [address] [place] [address] Phone Care Team Providers Care Guide Travel Name Role Phone Nathalia Chayito CHAVEZ CNP Primary Care Provider [phone] Broderick Perez MD Unavailable Albert Olivera MD Unavailable Reason for Visit * Reason Comments Medication Refill Encounter Details Date Type Department Care Team (Late Contact Info) Description 04/23/2024 [facility] [place] [phone] Albert Olivera MD [address] [place] [phone] Medication Refill Social History Tobacco Use Types Packs/Day Years Used Date Smoking Tobacco: Never Smokeless Tobacco: Never Alcohol Use Standard Drinks/Week Comments Not Currently 0 (1 standard drink = 0.6 oz pur e alcohol) Sexually Active Control Partners Comments Yes Comments Unknown Sex and Gender Information Value Date Recorded Sex Assigned at Not on file Legal Sex Female 8:35 AM BLENDING KETTLE TENDER Gender Identity Not on file Sexual Orientation Not on file documented as of this encounter Plan of Treatment Upcoming Encounters Date Type Department Care Team (Late Contact Info) Description 10/21/2024 11:00 AM CDT Office Visit [facility] [address] [place] [phone] Albert Olivera MD [address] [place] [address] 01/31/2025 10:45 AM CDT Office Visit [facility] [address] [facility] [address] Marlon Schultz MD #2 [facility] [address] [place] [address] documented as of this encounter Visit Diagnoses Not on filedocumented in this encounter Care Teams Guide Travel Relationship Specialty Start Date End Date Chayito Sloan APRN, GREGORY [address] [facility] [address] [place] [address] PCP - General Family Medicine 11/22/23 Broderick Perez MD #2 [facility] [address] [place] [address] Consulting Physician Endocrinology 01/02/24 Albert Olivera MD [address] [place] [address] Consulting Physician Neurology 01/23/24 documented as of this encounter
--- OUTSIDE RECORDS SUMMARY | 2024-08-19 22:23 | XMS_ITS | Encounter Summary ---
Author Organization [facility] Healthcare Address [address] [place] [address] Care Team Providers Care Belt Polisher Name Role Phone Dejuan Malcolm MD Unavailable [phone] Chayito Sloan NP Primary Care Provider [phone] Dave Oliva MD Unavailable [phone] Johan Rogel MD Unavailable [phone] Tomas Gray MD Unavailable [phone] Encounter Details Date Type Department Care Team (Late st Contact Info) Description 10/04/2023 Orders Only [facility] Health Information Management [address] [place] [address] Scanning, Provider Social History Tobacco Use Types Packs/Day Years Used Date Smoking Tobacco: Never [facility] Utilities Answer Date Recorded In the past 12 months has [employer], gas, oil, or water company threatened to [...] often do you attend chur ch or congregation services? Never 10/05/2023 Do you belong to any clubs o r organizations such as confucianist groups, unions, fraternal or athletic groups, or [...] place to sleep or slept in a longterm (including now)? No 06/21/2023 Housing Stability Vital Sign Answer Rjaan e Recorded In the last 12 months, was t here a time when you were not able to pay the mortgage or rent on time? No 10/05/2023 In the past 12 months, how m any times have you moved where you were living? 1 10/05/2023 At any time in the past 12 m [facility], were you homeless or living in a longterm (including now)? No 10/05/2023 Personal Safety Answer [...] Author 0 10/05/2023 3:46 PM CDT Raj Christopher, SUSIE * Question Answer Date of Assessment Author [...] occasion? Never 10/05/2023 3:46 PM CDT Daisy Christopher R N documented as of this encounter [...] Comment:Nares 10/14/23 10/14/2023 10/14/2023 04/11/2024 3:06 AM CUT OUT STITCHER VRE Comment:Urine - 10/14/2023 10/14/2023 10/14/2023 04/11/2024 3: 06 AM CUT OUT STITCHER documented as of this encounter Care Teams Belt Polisher Relationship Specialty Start Date End Date Chayito Sloan NP [address] [place] [address] PCP - General Nurse Practitioner 08/29/23 Dejuan Malcolm MD [address] [facility] [address] [place] [address] Consulting Physician Gastroenterology 06/21/23 [place] [address] [address] [place] [address] Surgeon Cardiothoracic Surgery 10/12/23 4 Johan Rogel MD [address] [facility] [address] [address] Consulting Physician Interventional Cardiology 10/12/23 [place] [address] [address] [facility] [address] [place] [address] Consulting Physician Endocrinology Diabetes & Metabolism 10/12/23 documented as of this encounter
--- OUTSIDE RECORDS SUMMARY | 2024-08-19 22:23 | XMS_ITS ---
Author Organization [facility] Address [address] [place] [address] Care Team Providers Care Awning Maker Name Role Phone Darin SHAH, Alissa Primary Care Provider Unavail able MIQUEL IMPROVEMENT AUDITOR, JAYANT Unavailable [phone] Oliver SHAH, Lacho Unavailable Unavailable NANDO SHAH, BAILEY Unavailable REASON FOR VISIT ERCP w/stenting for ESWL on 10/20/23 Encounters Encounter Location Date Provider Diagnosis [facility] - Op [address] Scheduling [place], [place] [id number] 10/18/2023 BAILEY COLLIER PLAN OF TREATMENT No Information Progress Notes * Gem OMRALES DDOB: [birth year] (39 yo F)Acc No.[id number]:10/18/2023 Patient: HANG Gem Norton Provider: Bailey Collier MD, FASGE :1985 Age:38 Y Sex:Female Date:10/18/2023 Address:[address], [facility] Pcp:Gemini Lincoln * Images: * Sign off status: Pending * Provider: Bailey Collier MD, FASGE Date: 10/18/2023
--- OUTSIDE RECORDS SUMMARY | 2024-08-19 22:23 | XMS_ITS | Clinical Summary ---
Author Organization [facility] Address [address] [place] [address] Care Team Providers Care Engineering Executive Name Role Phone Chayito Sloan SCOTT-LIBRARY SERVICES ASSISTANT Primary Care Provider [phone] Source Comments [facility],non-owned Affiliates and Associated Physician Practices is amultiple site organization consisting of ambulatory clinics and hospital sitesin [place], [place], [place] and [place]. This disclosure is being madepursuant to the Care Everywhere program and may not contain all information available regarding this patient. 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 Gender Identity Not on file Sexual Orientation Not on file Plan of Treatment Health Maintenance Due Date Last Done Comments LIPID TESTING 1985 MAMMOGRAM 1985 PAP SMEAR 1984 HIV SCREENING 01/22/1999 HEPATITIS C SCREENING 01/18/2002 DTAP/TDAP/TD VACCINES (1 - Tdap) 01/22/2003 HEPATITIS B VACCINE (1 of 3 - 19+ 3-dose series) 01/22/2003 COVID-19 VACCINE ( - 2023-2 5 season) 2024 DEPRESSION SCREENING 05/08/2024 INFLUENZA VACCINE (Season Ended) 2025 ZOSTER VACCINE (1 of 2) 01/22/2034 HIB VACCINE Aged Out No longer eligi ble based on patient's age to complete this topic HPV VACCINE Aged Out No longer eligi ble based on patient's age to complete this topic MENINGOCOCCAL (Group B) VACC INE SHARED DECISION-MAKING Aged Out No longer eligibl e based on patient's age to complete this topic MENINGOCOCCAL GROUPS A/C/Y/W VACCINE Aged Out No longer eligible b ased on patient's age to complete this topic PNEUMOCOCCAL VACCINE Aged Out No long er eligible based on patient's age to complete this topic Insurance [facility] [place] [address] Care Teams Engineering Executive Relationship Specialty Start Date End Date Chayito Sloan APRN-GREGORY [address] [place] [address] PCP - General Nurse Practitioner Family 10/11/23
--- OUTSIDE RECORDS SUMMARY | 2024-08-19 22:23 | XMS_ITS | CONTINUITY OF CARE DOCUMENT ---
Author Name dimitrios plunkett Address Unknown Organization [facility] Address [address] [place] [address] [address] [place] [address] Phone [phone] Care Team Providers Care Network Lead Name Role Phone Germain SHAH, Unavailable [phone]
--- OUTSIDE RECORDS SUMMARY | 2024-08-19 23:02 | XMS_ITS | Clinical Summary ---
Author Organization [facility] Address [address] [place] [address] Phone Care Team Providers Care Physiotherapy Assistant Name Role Phone Nathalia, Chayito CHAVEZ CNP Primary Care Provider [phone] Broderick Perez MD Unavailable Albert Olivera MD Unavailable [phone] Allergies Active Allergy Reactions Criticality Noted Date Comments Wound Dressing Adhesive Rash 05/20/2024 Medications ibuprofen (MOTRIN) 800 MG Tablet Take 800 mg by mouth every 6 hours as needed. Active atorvastatin (LIPITOR) 20 MG Tablet Take 20 mg by mouth daily. Active pancrelipase, lipase-proteas e-amylase, (Creon) [id number] Capsule DR Particles Take 1 Capsule by [...] Each 1 01/10/20 24 Active Continuous Glucose Location Worker (Dexcom G7 Location Worker) DeviceIndicati ons:Type 2 diabetes mellitus with diabetic [...] 1 01/10/20 Active Insulin Pen Needle (Pen Bow) 31G X 6 MM Misc 4 times [...] Refill [facility] - [place] [address] [place] [address] Broderick Perez MD Medication Refill 08/09/2024 [facility] - [place] [address] [place] [address] Albert Olivera MD Medication Refill 08/02/2024 2:45 PM CDT Office Visit [facility] [address] [place] [address] Marlon Schultz MD Kidney stone (Primary Dx) Discharge Disposition: Discharged to home or Selfcare 08/02/2024 Travel 05/29/2024 4:45 PM DINING ROOM COORDINATOR - 05/29/2024 11:59 PM DINING ROOM COORDINATOR Hospital [facility] Rad[facility] [address] [place] [address] Chayito Sloan APRN, CNP Discharge Disposition: Discharged to home or Selfcare 05/29/2024 Travel 05/29/2024 Transcribe Orders [facility] Central Scheduling [address] [place] [address] Chayito Sloan APRN, CNP Lumbar radiculopathy (Primary Dx) 05/20/2024 9:34 PM DINING ROOM COORDINATOR - 05/21/2024 12:09 AM DINING ROOM COORDINATOR Emergency [facility] Emergency [address] [place] [address] Donte Palomares DO Kidney stones Discharge Disposition: Discharged to home or Selfcare from Last 3 Months Immunizations Immunization Administration Dates Next Due Human Papillomavirus (HPV) Vaccine, Bivalent Human Papillomavirus Vaccine (HPV), quadrivalent 01/04/2007,11/03/2006 MMR Vaccine 04/27/1993 Pneumococcal conjugate PCV20 , polysaccharide [id number] conjugate, adjuvant, PF 08/17/2021 TDAP Vaccine 11/03/2006 [...] on file Legal Sex Female 8:35 AM DINING ROOM COORDINATOR Gender Identity Not on file Sexual Orientation Not on file Last Filed Vital Signs Vital Sign Reading Time Taken Comments Blood Pressure 166/97 08/02/2024 2:53 PM CDT Pulse 99 08/02/2024 2:53 PM CDT Temperature 36.6 C (97.9 F) 05/20/2024 9:29 PM DINING ROOM COORDINATOR Respiratory Rate 14 08/02/2024 2:53 PM CDT Oxygen Saturation 99% 08/02/2024 2:53 PM CDT Inhaled Oxygen Concentration - - Weight 96.6 kg (213 lb) 08/02/2024 2:53 PM CDT Height 149.9 cm (4' 11 ) 05/20/2024 9:29 PM DINING ROOM COORDINATOR Body Mass Index 43.02 05/20/2024 9:29 PM DINING ROOM COORDINATOR Plan of Treatment Upcoming Encounters Date Type Department Care Team (Late st Contact Info) Description 10/21/2024 11:00 AM CDT [facility] [place] [address] [place] [address] Albert Olivera MD [address] [place] [address] 01/31/2025 10:45 AM CDT Office Visit [facility] [address] [place] [address] Marlon Schultz MD [address] [address] Health Maintenance Due Date Last Done Comments [...] OR 3 VIEWS Routine 05/29/2024 4:55 PM DINING ROOM COORDINATOR Lumbar radiculopathy CMP (COMPREHENSIVE METABOLIC PANEL) STAT 05/20/2024 9:44 PM DINING ROOM COORDINATOR POCT GLYCOSYLATED HEMOGLOBIN Routine 01/10/2024 10:34 AM CDT Type 2 diabetes mellitus with diabetic polyneuropathy, with long-term current use of insulin (HCC) from Last 3 Months or Most Recently Relevant to Health Maintenance Results * XR LUMBAR SPINE 2 OR 3 VIEWS (05/29/2024 4:55 PM DINING ROOM COORDINATOR) Anatomical Region Laterality Modality Spine, L-spine N/A Digital Radiogra phy 05/30/2024 8:28 AM DINING ROOM COORDINATOR Impressions 05/30/2024 8:31 AM DINING ROOM COORDINATOR IMPRESSION: Mild diffuse lumbar degenerative disc disease. Narrative 05/30/2024 8:31 AM DINING ROOM COORDINATOR EXAM DESCRIPTION: XR LUMBAR SPINE 2 OR [...] Luis Ricks M.D. MF: [id number] Report ID: [id number] Reading Location: [id number] Procedure Note Luis Ricks MD - 05/30/2024 [...] Luis Ricks M.D. MF: [id number] Report ID: [id number] Reading Location: [id number] IMPRESSION: Mild diffuse lumbar degenerative disc disease. [facility] Sloan ASSEMBLY STOCK SUPERVISOR, MID WIFE IMG DIAGNOSTIC ORDERABLES Final Result * (ABNORMAL) CMP (Comprehensive Metabolic Panel) (05/20/2024 9:44 PM DINING ROOM COORDINATOR) SODIUM 139 136 - 145 mmol/L 05/20/2024 10:34 PM DINING ROOM COORDINATOR [facility] POTASSIUM 4.6 3.5 - 5.1 mmol/L 05/20/2024 10:34 PM DINING ROOM COORDINATOR [facility] CHLORIDE 105 98 - 107 mmol/L 05/20/2024 10:34 PM [facility] CO2, VENOUS 22 22 - 30 mmol/L 05/20/2024 10:34 PM [facility] ANION GAP 16.6 <18.0 mmol/L 05/20/2024 10:34 PM [facility] GLUCOSE 175(H) 70 - 99 mg/dL 05/20/2024 10:34 PM [facility] BUN 11 5 - 18 mg/dL 05/20/2024 10:34 PM [facility] CREATININE, BLOOD 0.95 0.60 - 1.00 mg/dL 05/20/2024 10:34 PM [facility] BUN/CREATININE RATIO 12 12 - 20 ratio 05/20/2024 10:34 PM [facility] TOTAL PROTEIN 8.1 6.3 - 8.2 g/dL 05/20/2024 10:34 PM [facility] ALBUMIN 3.6 3.5 - 5.0 g/dL 05/20/2024 10:34 PM [facility] A/G RATIO 0.8(L) 1.0 - 2.2 05/20/2024 10:34 PM [facility] CALCIUM 9.2 8.7 - 10.5 mg/dL 05/20/2024 10:34 PM [facility] T BILI 0.2 0.2 - 1.2 mg/dL 05/20/2024 10:34 PM [facility] SGOT (AST) 48(H) 5 - 34 U/L 05/20/2024 10:34 PM [facility] SGPT (ALT) 38 0 - 55 U/L 05/20/2024 10:34 PM [facility] ALKALINE PHOSPHATASE 94 40 - 150 U/L 05/20/2024 10:34 PM [facility] GFR, ESTIMATED >60 >=60 05/20/2024 10:34 PM [facility] Comment: Creatinine Clearance is the preferred criteria for selecting drug dose adjustments in renally impaired patients. The GFR is provided as additional pertinent clinical information. GFR is reported in mL/min/1.73 sq m. Calculation based on the Chronic Kidney Disease Epidemiology Collaboration (CKD- EPI) equation refit without adjustment for race. GFR, EST. >60 >=60 025 10:34 PM DINING ROOM COORDINATOR [facility] GFR, EST. NONAFRICAN >60 >=60 05/20/2024 10:34 PM DINING ROOM COORDINATOR [facility] Blood Venipuncture / Unknown 05/20/2024 9:44 PM DINING ROOM COORDINATOR 05/20/2024 10:03 PM DINING ROOM COORDINATOR us Donte Palomares DO CHEMISTRY ORDERABLES Fi nal Result [facility] [address] [place] [address] * (ABNORMAL) POCT GLYCOSYLATED HEMOGLOBIN (01/10/2024 10:34 AM CDT) HGB-A1C 10.1(A) 4 - 6 % Blood 01/10/2024 10:3 4 AM CDT us Broderick Perez MD POINT OF CARE TESTING (MANUAL) F inal Result from Last 3 Months or Most Recently Relevant to Health Maintenance Insurance MEDICAID [place] Care Teams Physiotherapy Assistant Relationship Specialty Start Date End Date Sloan, SCOTT Stratton, MID WIFE [address] [place] [address] PCP - General Family Medicine 11/22/23 Broderick Perez MD [address] [phone] Consulting Physician Endocrinology 01/02/24 Albert Olivera MD [address] [place] [address] Consulting Physician Neurology 01/23/24
--- OUTSIDE RECORDS SUMMARY | 2024-08-19 23:02 | XMS_ITS | CONTINUITY OF CARE DOCUMENT ---
Author Name dimitrios plunkett Address Unknown Organization [facility] Address [address] [place] [address] [address] [place] [address] Phone [phone] Care Team Providers Care Waste Disposal Attendant Name Role Phone Germain SHAH, Unavailable [phone]
--- OUTSIDE RECORDS SUMMARY | 2024-08-19 23:02 | XMS_ITS | Encounter Summary ---
Author Organization [facility] Address [address] [place] [address] Care Team Providers Care Fancy Packer Name Role Phone Dejuan Malcolm MD Unavailable Chayito Sloan NP Primary Care Provider [phone] Dave Oliva MD Unavailable [phone] Johan Rogel MD Unavailable [phone] Tomas Gray MD Unavailable [phone] Encounter Details Date Type Department Care Team (Late st Contact Info) Description 10/04/2023 Orders Only [facility] Health Information Management [address] [place] [address] Scanning, Provider Social History Tobacco Use Types Packs/Day Years Used Date Smoking Tobacco: Never [facility] Utilities Answer Date Recorded In the past 12 months has [employer], gas, oil, or water company threatened to [...] often do you attend chur ch or mandaeism services? Never 10/05/2023 Do you belong to [...] place to sleep or slept in a retirement (including now)? No 06/21/2023 Housing Stability Vital Sign Answer Rajan e Recorded In the last 12 months, was t here a time when you were not able to pay the mortgage or rent on time? No 10/05/2023 In the past 12 months, how m any times have you moved where you were living? 1 10/05/2023 At any time in the past 12 m [facility], were you homeless or living in a retirement (including now)? No 10/05/2023 Personal Safety Answer [...] Comment:Nares 10/14/23 10/14/2023 10/14/2023 04/11/2024 3:06 AM EVENT MARKETING REPRESENTATIVE VRE Comment:Urine - 10/14/2023 10/14/2023 10/14/2023 04/11/2024 3: 06 AM EVENT MARKETING REPRESENTATIVE documented as of this encounter Care Teams Fancy Packer Relationship Specialty Start Date End Date Chayito Sloan NP [address] [place] [address] PCP - General Nurse Practitioner 08/29/23 Dejuan Malcolm MD [address] [facility] [address] [place] [address] Consulting Physician Gastroenterology 06/21/23 [place] [address] [address] [place] [address] Surgeon Cardiothoracic Surgery 10/12/23 4 Johan Rogel MD [address] [facility] [address], [place] [address] Consulting Physician Interventional Cardiology 10/12/23 [place] [address] [address] [facility] [address] [place] [address] Consulting Physician Endocrinology Diabetes & Metabolism 10/12/23 documented as of this encounter
--- OUTSIDE RECORDS SUMMARY | 2024-08-19 23:02 | XMS_ITS | Encounter Summary ---
Author Organization [facility] Address [address] [place] [address] Phone Care Team Providers Care Systems Navigator Name Role Phone Nathalia Chayito CHAVEZ CNP Primary Care Provider [phone] Broderick Perez MD Unavailable Albert Olivera MD Unavailable Reason for Visit * Reason Comments Medication Refill Encounter Details Date Type Department Care Team (Late Contact Info) Description 04/23/2024 [facility] [place] [address] Albert Olivera MD [address] [place] [phone] Medication Refill Social History Tobacco Use Types Packs/Day Years Used Date Smoking Tobacco: Never Smokeless Tobacco: Never Alcohol Use Standard Drinks/Week Comments Not Currently 0 (1 standard drink = 0.6 oz pur e alcohol) Sexually Active Control Partners Comments Yes Comments Unknown Sex and Gender Information Value Date Recorded Sex Assigned at Not on file Legal 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 Gender Identity Not on file Sexual Orientation Not on file documented as of this encounter Plan of Treatment Upcoming Encounters Date Type Department Care Team (Late Contact Info) Description 10/21/2024 11:00 AM CDT Office Visit [facility] [address] [place] [phone] Albert Olivera MD [address] [place] [address] 01/31/2025 10:45 AM CDT Office Visit [facility] [address] [place] [address] Marlon Schulzt MD #2 [facility] [address] [place] [address] documented as of this encounter Visit Diagnoses Not on filedocumented in this encounter Care Teams Systems Navigator Relationship Specialty Start Date End Date Chayito Sloan APRN, GREGORY [address] [facility] [address] [place] [address] PCP - General Family Medicine 11/22/23 Broderick Perez MD [address]2 [facility] [address] [place] [address] Consulting Physician Endocrinology 01/02/24 Albert Olivera MD [address] [place] [address] Consulting Physician Neurology 01/23/24 documented as of this encounter
--- OUTSIDE RECORDS SUMMARY | 2024-08-19 23:02 | XMS_ITS | Referral Summary ---
Author Organization [facility] Address [address] [place] [address] Care Team Providers Care Curve Cleaner Name Role Phone Dejuan Malcolm MD Unavailable Chayito Sloan NP Primary Care Provider Johan Rogel MD Unavailable Tomas Gray MD Unavailable [phone] Encounters Date Type Department Care Team Description 08/06/2024 9:00 AM CDT Office Visit [facility] Diabetes Endocrine Care at [address] [address] Savanna Rogel DO Type 2 diabetes mellitus with hyperglycemia, with long-term current use of insulin (HCC) (Primary Dx); Hyperlipidemia associated with type 2 diabetes mellitus (HCC) 07/31/2024 Orders Only [facility] Diabetes Endocrine Care at [address] [address] Savanna Rogel DO 06/27/2024 Orders Only [facility] Diabetes Endocrine Care at [address] [address] Savanna Rogel DO from Last [...] extended release tabletIndications :Coronary artery disease involving [place] coronary artery of [place] heart without angina pectoris Take 1 tablet [...] 0 10/05/2023 Coronary artery disease invo lving [place] coronary artery of [place] heart without angina pectoris 10/04/2023 Morbid obesity [...] materials from doctor or pharmacy Never 01/04/2024 [facility] Utilities Answer Date Recorded In the past 12 months has e [employer], [employer], oil, or water [employer] threatened to shut off services in your [...] often do you attend chur ch or sikh services? Never 10/16/2023 Do you belong to any clubs o r organizations such as episcopal groups, unions, fraternal or athletic groups, or [...] place to sleep or slept in a mcc (including now)? No 06/21/2023 Housing Stability Vital Sign Answer Rajan e Recorded In the last 12 months, was t here a time when you were not able to pay the mortgage or rent on time? No 10/16/2023 In the past 12 months, how m any times have you moved where you were living? 0 10/16/2023 At any time in the past 12 m [facility], were you homeless or living in a mcc (including now)? No 10/16/2023 Personal Safety Answer [...] CDT Oxygen Saturation 95% 04/11/2024 10:20 AM DUST COLLECTOR TREATER Inhaled Oxygen Concentration - - Weight 104.6 kg (230 lb 8 oz) 08/06/2024 9:07 AM CDT Height 149.9 cm (4' 11 ) 08/06/2024 9:07 AM CDT Body Mass Index 46.56 08/06/2024 9:07 AM CDT Plan of Treatment Not on file Medical Devices Implanted Type Area Clinical Nursing Instructor Device Identifier Shelf Expiration Date Model / Serial / Lot [employer] Low Profile Screws 4mm 40mm Modular Self Drill Self Tap [id number] - [id number] Implanted:Qty: 1 on 10/18/2023 by Mario Correa Jr., MD at [facility] Left: Ankle [employer] [id number]-40 / / Explanted Type Area Clinical Nursing Instructor Device Identifier Shelf Expiration Date Model / Serial / Lot [employer] Schuster 5fr 9cm Pancreatic Stent [id number] - [id number] Implanted:Qty: 1 on 06/19/2023 by Dejuan Malcolm MD at [facility] Explanted:Qty: 1 on 06/21/2023 by Dejuan Malcolm MD at [facility] Stent [employer] 02/06/2028 [id number] / / [id number] [employer] Gina Wallflex 8mm 8.5fr 60mm 194cm Rapid Exchange Full Cover Closed [id number] - [id number] Implanted:Qty: 1 on 06/19/2023 by Dejuan Malcolm MD at [facility] Explanted:Qty: 1 on 06/21/2023 by Dejuan Malcolm MD at [facility] Stent N/A: Bile Duct [employer] Gina 02/07/2025 [id number] / / [id number] Procedures Procedure Name Priority Date/Time Associated Diagnosis Comments POCT HEMOGLOBIN A1C Routine 08/06/2024 9 :17 AM CDT Type 2 diabetes mellitus with hyperglycemia, with long-term current use of insulin (HCC) COMPREHENSIVE METABOLIC PANEL Routine 05/20/2024 ALBUMIN CREATININE RATIO, URINE Routine 04/26/2024 10:55 AM DUST COLLECTOR TREATER Type 2 diabetes mellitus with other circulatory [...] hemoglobin A1c (08/06/2024 9:17 AM CDT) Pathologist [facility] Hemoglobin A1C, POC 8.6 4.0 - 5.6 [...] - EXTERNAL LAB SCRIBED eGFR in NonAfrican Bermudian >60 - - - EXTERNAL LAB Blood 05/20/2024 Historical Provider MD LAB BLOOD ORDERABLES Marilyn l Result EXTERNAL LAB * (ABNORMAL) Albumin Creatinine Ratio, Urine (04/26/2024 10:55 AM DUST COLLECTOR TREATER) Albumin Ur 933.1 mg/L Comment: Interpretive Data No reference range established. Current interpretive data was last revised 2018. Testing performed by: [facility], [address] [place] [address]., [id number] Creatinine Ur 55.6 mg/dL JUST[facility]VO (NINI) Comment: Interpretive Data No reference range established. Current interpretive data was last revised 2018. Testing performed by: [facility], [address] [place] [address]., [address] Albumin Creatinine Ratio, Ur 1,678(H) 1 - 29 mg/g [facility] (NINI) Comment:Testing performed by : [address] [address] Urine 04/26/2024 10:5 5 AM DUST COLLECTOR TREATER 04/26/2024 5:35 PM DUST COLLECTOR TREATER Savanna Rogel DO LAB URINE ORDERABLES Final Result [facility] (NINI) 1 [facility] Department [place] [address] * RetinaVue Scanner - OU - Both [...] BLOOD ORDERABLES Fin al Result JUSTINE PENA [address] [address] Department [place] [address] from Last 3 Months or Most Recently Relevant to Health Maintenance Insurance [facility] Advance Directives For more information, please contact: [phone] * Full Code (Latest Code Status on File) Date Activated Date Inactivated Comments 10/18/2023 2:29 PM 10/23/2023 8:08 PM * Full Code Date Activated Date Inactivated Comments 10/14/2023 8:30 PM 10/18/2023 2:29 PM * Full Code Date Activated Date Inactivated Comments 10/04/2023 10:25 PM 10/12/2023 11:11 PM * Full Code Date Activated Date Inactivated Comments 06/20/2023 9:18 AM 06/21/2023 11:05 PM Care Teams Curve Cleaner Relationship Specialty Start Date End Date Chayito Sloan NP [address] [place] [address] PCP - General Nurse Practitioner 08/29/23 Dejuan Malcolm MD [address] [place] [address] Consulting Physician Gastroenterology 06/21/23 Johan Rogel MD [address] [place] [address] Consulting Physician Interventional Cardiology 10/12/23 [place] [address] [address] [place] [address] Consulting Physician Endocrinology Diabetes & Metabolism 10/12/23
--- OUTSIDE RECORDS SUMMARY | 2024-08-19 23:02 | XMS_ITS | Clinical Summary ---
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 Take 1 tablet [...] 0 10/05/2023 Coronary artery disease invo lving lac vieux coronary artery of lac vie[place] heart without angina pectoris 10/04/2023 Morbid obesity [...] Description 08/06/2024 9:00 AM CDT Office Visit [facility] Medical Group Diabetes Endocrine Care at [address] [address] Savanna Rogel, Type 2 diabetes mellitus with hyperglycemia, with long-term current use of insulin (HCC) (Primary Dx); Hyperlipidemia associated with type 2 diabetes mellitus (HCC) 07/31/2024 Orders Only [facility] Medical [facility] Diabetes Endocrine Care at [address] [place] [address] Savanna Rogel DO 06/27/2024 Orders Only [facility] Medical Group Diabetes Endocrine Care at [address] [place] [address] Savanna Rogel DO from Last 3 Months [...] materials from doctor or pharmacy Never 01/04/2024 [facility] Utilities Answer Date Recorded In the past 12 months has e [employer], gas, oil, or water [employer] threatened to shut off services in your [...] often do you attend chur ch or faith services? Never 10/16/2023 Do you belong to [...] place to sleep or slept in a fpc (including now)? No 06/21/2023 Housing Stability Vital Sign Answer Rajan e Recorded In the last 12 months, was t here a time when you were not able to pay the mortgage or rent on time? No 10/16/2023 In the past 12 months, how m any times have you moved where you were living? 0 10/16/2023 At any time in the past 12 m [facility], were you homeless or living in a fpc (including now)? No 10/16/2023 Personal Safety Answer [...] CDT Oxygen Saturation 95% 04/11/2024 10:20 AM YOUTH DEVELOPMENT PROFESSIONAL Inhaled Oxygen Concentration - - Weight 104.6 [...] Completed 08/17/2021 Medical Devices Implanted Type Area Assistant Manager Trainee Device Identifier Shelf Expiration Date Model / Serial / Lot [employer] Low Profile Screws 4mm 40mm Modular Self Drill Self Tap [id number]-[id number]-40 - [id number] Implanted:Qty: 1 on 10/18/2023 by Mario Correa Jr., MD at [facility] Left: Ankle [employer] AR-8840C-40 / / Explanted Type Area Assistant Manager Trainee Device Identifier Shelf Expiration Date Model / Serial / Lot [employer] Schuster 5fr 9cm Pancreatic Stent [id number] - [id number] Implanted:Qty: 1 on 06/19/2023 by Dejuan Malcolm MD at [facility] Explanted:Qty: 1 on 06/21/2023 by Dejuan Malcolm MD at [facility] Stent [employer] 02/06/2028 [id number] / / [id number] [employer] Gina Wallflex 8mm 8.5fr 60mm 194cm Rapid Exchange Full Cover Closed [id number] - [id number] Implanted:Qty: 1 on 06/19/2023 by Dejuan Malcolm MD at [facility] Explanted:Qty: 1 on 06/21/2023 by Dejuan Malcolm MD at [facility] Stent N/A: Bile Duct [employer] Gina 02/07/2025 [id number] / / [id number] Procedures Procedure Name Priority Date/Time Associated Diagnosis Comments POCT HEMOGLOBIN A1C Routine 08/06/2024 9 :17 AM CDT Type 2 diabetes mellitus with hyperglycemia, with long-term current use of insulin (HCC) COMPREHENSIVE METABOLIC PANEL Routine 05/20/2024 ALBUMIN CREATININE RATIO, URINE Routine 04/26/2024 10:55 AM YOUTH DEVELOPMENT PROFESSIONAL Type 2 diabetes mellitus with other circulatory [...] - EXTERNAL LAB SCRIBED eGFR in NonAfrican Dominican >60 - - - EXTERNAL LAB Blood 05/20/2024 [facility] Provider LAB BLOOD ORDERABLES Marilyn l Result Performing Organization Address City/[facility]/ZIP Co de Phone Number EXTERNAL LAB * (ABNORMAL) Albumin Creatinine Ratio, Urine (04/26/2024 10:55 AM YOUTH DEVELOPMENT PROFESSIONAL) Pathologist [facility] Albumin Ur 933.1 mg/L Comment: Interpretive Data No reference range established. Current interpretive data was last revised 2018. Testing performed by: [facility], [address] [place] [address]., [id number] Creatinine Ur 55.6 mg/dL [facility] ([place]) Comment: Interpretive Data No reference range established. Current interpretive data was last revised 2018. Testing performed by: [facility], [address] [place] [address]., [id number] Albumin Creatinine Ratio, Ur 1,678(H) 1 - 29 mg/g [facility] ([place]) Comment:Testing performed by : [facility], [address] [place] [address]., [id number] Urine 04/26/2024 10:5 5 AM YOUTH DEVELOPMENT PROFESSIONAL 04/26/2024 5:35 PM YOUTH DEVELOPMENT PROFESSIONAL Savanna Rogel DO LAB URINE ORDERABLES Final Result Performing Organization Address [facility] Co de Phone Number [facility] ([place]) [address] [facility] [place] [address] * RetinaVue Scanner - OU - Both [...] BLOOD ORDERABLES Fin al Result JUSTINE PENA [address] [address] Department [place] [address] from Last 3 Months or Most Recently Relevant to Health Maintenance Insurance [facility] Advance Directives For more information, please contact: [phone] * Full Code (Latest Code Status on File) Date Activated Date Inactivated Comments 10/18/2023 2:29 PM 10/23/2023 8:08 PM * Full Code Date Activated Date Inactivated Comments 10/14/2023 8:30 PM 10/18/2023 2:29 PM * Full Code Date Activated Date Inactivated Comments 10/04/2023 10:25 PM 10/12/2023 11:11 PM * Full Code Date Activated Date Inactivated Comments 06/20/2023 9:18 AM 06/21/2023 11:05 PM Care Teams Keno Writer / Runner Relationship Specialty Start Date End Date Chayito Sloan NP [address] [place] [address] PCP - General Nurse Practitioner 08/29/23 Dejuan Malcolm MD [address] [facility] [address] [place] [address] Consulting Physician Gastroenterology 06/21/23 Johan Rogel MD [address] [facility] [address] [address] Consulting Physician Interventional Cardiology 10/12/23 [place] [address] [address] [facility] [address] [place] [address] Consulting Physician Endocrinology Diabetes & Metabolism 10/12/23
--- OUTSIDE RECORDS SUMMARY | 2024-08-19 23:02 | XMS_ITS | Encounter Summary ---
Author Organization [facility] Address [address] [place] [address] Care Team Providers Care Actuarial Associate Name Role Phone Dejuan Malcolm MD Unavailable [phone] Chayito Sloan NP Primary Care Provider [phone] Dave Oliva MD Unavailable Johan Rogel MD Unavailable [phone] Tomas Gray MD Unavailable [phone] Encounter Details Date Type Department Care Team (Late st Contact Info) Description 10/03/2023 Orders Only [facility] Health Information Management [address] [place] [address] Gertrudis Farah DO [address] [place] [address] Social History Tobacco Use Types Packs/Day Years Used Date Smoking Tobacco: Never [facility] Utilities Answer Date Recorded In the past 12 months has [employer], gas, oil, or water [employer] threatened to shut off services in your [...] week 10/05/2023 How often do you attend [facility] or anabaptist services? Never 10/05/2023 Do you belong to any clubs o r organizations such as rastafarian groups, unions, fraternal or athletic groups, or [...] place to sleep or slept in a snf (including now)? No 06/21/2023 Housing Stability Vital Sign Answer Rajan e Recorded In the last 12 months, was t here a time when you were not able to pay the mortgage or rent on time? No 10/05/2023 In the past 12 months, how m any times have you moved where you were living? 1 10/05/2023 At any time in the past 12 m [facility], were you homeless or living in a snf (including now)? No 10/05/2023 Personal Safety Answer [...] one occasion? Never 10/05/2023 3:46 PM CDT Diasy Christopher, R N documented as of this encounter Plan of Treatment Not on file documented as of this encounter Procedures Procedure Name Priority Date/Time Associated Diagnosis Comments CARDIOLOGY DOCUMENT SCAN 10/03/2023 documented in this encounter Results * Cardiology Document Scan (10/03/2023) Anatomical Region Laterality Modality Other [facility] Gagan DO CV CARDIAC SERVICES PROCEDURES Final Result documented in this encounter Visit Diagnoses Not on filedocumented in this encounter Additional Health Concerns Infection Onset Date Last Indicated Resolved Time MRSA Comment:Aren 10/14/23 10/14/2023 10/14/2023 04/11/2024 3:06 AM SPINNING LATHE OPERATOR VRE Comment:Urine - 10/14/2023 10/14/2023 10/14/2023 04/11/2024 3: 06 AM SPINNING LATHE OPERATOR documented as of this encounter Care Teams Actuarial Associate Relationship Specialty Start Date End Date Chayito Sloan NP [address] [place] [address] PCP - General Nurse Practitioner 08/29/23 Dejuan Malcolm MD [address] [place] [address] Consulting Physician Gastroenterology 06/21/23 [place] [address] [place] [address] Surgeon Cardiothoracic Surgery 10/12/23 Johan Santillan MD [address] [facility] [address], [place] [id number] Consulting Physician Interventional Cardiology 10/12/23 [place] [address] [facility] [address] [place], [place] [id number] Consulting Physician Endocrinology Diabetes & Metabolism 10/12/23 documented as of this encounter
--- OUTSIDE RECORDS SUMMARY | 2024-08-19 23:02 | XMS_ITS | Clinical Summary ---
Author Organization [facility] Address [address] [facility] [place] [address] Care Team Providers Care Penal Officer Name Role Phone Chayito Sloan SCOTT-MINISTER HELPER Primary Care Provider [phone] Source Comments [facility],non-owned Affiliates and Associated Physician Practices is amultiple site organization consisting of ambulatory clinics and hospital sitesin [place], [place], [place] and [place]. This disclosure is being madepursuant to the Care Everywhere program and may not contain all information available regarding this patient. Last updated 18.[facility] [employer] Social History Tobacco Use Types Packs/Day Years Used Date Smoking Tobacco: Never Assessed Comments Unknown Sex and Gender Information Value Date Recorded Sex Assigned at Not on file Legal Sex Female 6:29 PM MANUFACTURING SHIFT SUPERVISOR Gender Identity Not on file Sexual Orientation [...] patient's age to complete this topic Insurance [facility] [place] [address] Care Teams Penal Officer Relationship Specialty Start Date End Date Chayito Sloan APRN-GREGORY [address] [place] [address] PCP - General Nurse Practitioner Family 10/11/23
--- OUTSIDE RECORDS SUMMARY | 2024-08-19 23:02 | XMS_ITS | Encounter Summary ---
Author Organization [facility] Address [address] [place] [place] [address] Phone Care Team Providers Care Marine Habitat Resource Specialist Name Role Phone Nathalia, Chayito CHAVEZ CNP Primary Care Provider [phone] Broderick Perez MD Unavailable Albert Olivera MD Unavailable Reason for Visit * Reason Comments Medication Refill Encounter Details Date Type Department Care Team (Late st Contact Info) Description 08/11/2024 Refill [facility] - Endocrinology - [place] [address] [place] [address] Broderick Perez MD [address] [address] Medication Refill Social History Tobacco Use Types Packs/Day Years Used Date Smoking Tobacco: Never Smokeless Tobacco: Never Alcohol Use Standard Drinks/Week Comments Not Currently 0 (1 standard drink = 0.6 oz pur e alcohol) Sexually Active Control Partners Comments Yes Comments Unknown Sex and Gender Information Value Date Recorded Sex Assigned at Not on file Legal Sex Female 8:35 AM STRIP DEBURRER Gender Identity Not on file Sexual Orientation [...] Description 10/21/2024 11:00 AM CDT Office Visit [facility] - Neurology [facility] [address] [place] [phone] Albert Olivera MD [address] [place] [phone] 01/31/2025 10:45 AM CDT Office Visit [facility] [address] [place] [address] Marlon Schultz MD [address] [address] documented as of this encounter Visit Diagnoses Not on filedocumented in this encounter Care Teams Marine Habitat Resource Specialist Relationship Specialty Start Date End Date Chayito Sloan APRN, CNP [address] [place] [address] PCP - General Family Medicine 11/22/23 Broderick Perez MD [address] [address] Consulting Physician Endocrinology 01/02/24 Albert Olivera MD [address] [place] [address] Consulting Physician Neurology 01/23/24 documented as of this encounter
--- OUTSIDE RECORDS SUMMARY | 2024-08-19 23:02 | XMS_ITS | Clinical Summary ---
Author Organization [facility] Address [facility] [place] [address] Care Team Providers Care Farmworker Rice Name Role Phone Alissa Webster MD Primary Care Provider [phone] Allergies No known active allergies Medications insulin [...] less, will sometimes take 1 Active pancrelipase, Dgy-Cftm-Aokd, (CREON) 83991 UNIT CAPSULE ENTERIC COATED PARTICLES Take 1 [...] on file Legal Sex Female 10:05 AM AIR GUN OPERATOR Gender Identity Not on file Sexual Orientation Not on file Last Filed Vital Signs Vital Sign Reading Time Taken Comments Blood Pressure 138/90 05/29/2023 9:45 AM AIR GUN OPERATOR Pulse 87 05/29/2023 9:45 AM AIR GUN OPERATOR Temperature 36.7 C (98.1 F) 05/29/2023 9:45 AM AIR GUN OPERATOR Respiratory Rate 16 05/29/2023 9:45 AM AIR GUN OPERATOR Oxygen Saturation 97% 05/29/2023 9:45 AM AIR GUN OPERATOR Inhaled Oxygen Concentration - - Weight 93.9 kg (207 lb 0.2 oz) 05/29/2023 6:10 A M AIR GUN OPERATOR Height 151.1 cm (4' 11.5 ) 05/22/2023 11:[address] Body Mass Index 41.11 05/22/2023 11:48 AM AIR GUN OPERATOR Plan of Treatment Health Maintenance Due Date [...] complete this topic Insurance [employer] Care Teams Farmworker Rice Relationship Specialty Start Date End Date Alissa Webster MD [address] [place] [address] PCP - General INTERNAL MEDICINE 05/29/23
[2024-08-19 23:16] LABS: Basophils Absolute Auto 0.1 K/mm3 (0.0-0.1); Basophils Percent Auto 0.9 % (0.2-1.2); Eosinophils Absolute Auto 0.2 K/mm3 (0-0.3); Eosinophils Percent Auto 2.5 % (0-4.4); Hematocrit 38.1 % (37.0-47.0); Hemoglobin 12.3 g/dL (12.0-15.0); Immature Granulocyte Absolute 0.02 K/mm3 (0.00-0.031); Immature Granulocyte Percent A 0.3 % (0-0.5); Lymphocytes Absolute Auto 2.89 K/mm3 (0.9-3.2); Lymphocytes Percent Auto 36.4 % (18.3-44.2); Mean Corpuscular HGB Conc 32.3 g/dl (32-36); Mean Corpuscular Hemoglobin 27.7 pg (26-34); Mean Corpuscular Volume 85.8 fl (80-100); Mean Platelet Volume 10.2 fl (7.4-10.4); Monocytes Absolute Auto 0.7 K/mm3 (0.1-0.6); Monocytes Percent Auto 8.8 % (2.6-8.5); Neutrophils Absolute Auto 4.1 K/mm3 (1.3-6.7); Neutrophils Percent Auto 51.1 % (45.5-73.1); Platelet Count Result 232 k/mm3 (150-375); Red Blood Count 4.44 M/mm3 (4.2-5.4); Red Cell Distribution Width 16.4 % (11.5-14.5); White Blood Count 7.9 K/mm3 (4.5-10.0)
--- NOTE | 2024-08-19 23:17 | ED_ITS ---
HPI - Extremity Problem General Chief complaint: Extremity Problem,Nontraumatic Stated complaint: swollen legs Time Seen by Provider: 08/19/24 22:45 Source: patient Mode of arrival: ambulatory Limitations: no limitations History of Present Illness HPI Narrative: This is a 39-year-old female who presents to the ED for chief complaint of bilateral lower leg swelling, worse on the right. States that she has had chronic swelling to the lower legs but worse over the past couple of days. Patient reports the right leg has been noticeably more painful and swollen than the left. She does report lumbar degenerative disease and is undergoing workup for this. She endorses neuropathy as well. Denies fevers, chills, nausea, vomiting, rash. Related Data Home Medications ?Medication ?Instructions ?Recorded ?Confirmed ?Last Taken ?Type gabapentin 600 mg tablet 600 mg PO TID 03/11/21 10/03/23 10/02/23 20:00 History 600 insulin glargine 100 unit/mL 30 unit subcut HS 06/24/21 10/03/23 10/02/23 21:00 History subcutaneous solution (Lantus 30 Units U-100 Insulin) insulin lispro 100 unit/mL 8 unit subcut TIDWMEAL 06/24/21 10/03/23 10/02/23 18:00 History subcutaneous pen (Humalog KwikPen 8 units (U-100) Insulin) atorvastatin 20 mg tablet 20 mg PO HS 12/19/22 10/03/23 10/02/23 21:00 History 20 ergocalciferol (vitamin D2) 1,250 50,000 unit PO WEEKLY 12/19/22 10/03/23 12/09/22 09:00 History mcg (50,000 unit) capsule Allergies Allergy/AdvReac Type Severity Reaction Status Date / Time No Known Allergies Allergy Unknown Verified 08/19/24 22:25 Review of Systems 2 Review of Systems: All systems as dictated in [facility] Past Medical History Medical History (Updated 08/20/24 @ 00:03 by Bryce Jensen PA-C) Non-ST elevation FL (NSTEMI) Pneumonia 2023 Chronic pancreatitis Hypertriglyceridemia Dyslipidemia Gastroesophageal reflux disease Insulin dependent type 2 diabetes mellitus Poorly controlled with last A1c of 10.3 in 2022 Hepatic steatosis With hepatomegaly Kidney stones Diabetic neuropathy Osteomyelitis of ankle or foot, left, acute (2020) Psoriasis Asthma Hypertension Surgical History Surgical History History of laparoscopic cholecystectomy (06/20/22) 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 Surrogate medical decision maker: Carlee River, mother. Code status: Full code. Smoking status: Never smoker Alcohol intake: never Alcohol use details: Rare alcohol use. Substance use: never Substance use type: prescription drug Do You Feel Safe in your Home?: Yes Lack of Transportation: No Lack of Food: Never True Current Housing: I Have Housing Concerned About Future Housing: No Difficulty Paying Gas/Electric Bills: No Difficulty Paying for Meds: No Currently Unemployed: No Education: High School Diploma/GED Difficulty w/ Childcare or Family Care: No Living arrangements: with family Additional living arrangements comments: Lives in [place] with mother and significant other. Two children at home. Occupation/Education: unemployed Additional occupation/education comments: Applying for disability Spiritual care concerns: No Exam 2 Narrative: GENERAL: Well-appearing, well-nourished, and in no acute distress. HEAD: Normocephalic, atraumatic. EYES: PERRLA and EOMI. ENT: Nares clear, no rhinorrhea or epistaxis. Mucous membranes moist. Oropharynx without tonsillar hypertrophy exudate or other lesions. NECK: Supple. No adenopathy or masses. CHEST: No respiratory distress. Clear to auscultation. No wheezes rales or rhonchi HEART: Regular rate and rhythm. No murmur heard. Normal peripheral pulses. ABDOMEN: Soft, nontender, nondistended, normal active bowel sounds. MSK: Mild generalized swelling to the bilateral lower extremities. No edema. Mild increased erythema of the right lower leg compared to left. No warmth and no tenderness. SKIN: Warm, dry, no rash. NEURO: Alert and oriented x4. No focal deficits. PSYCH: Normal mood and affect. Course Vital Signs Vital signs: Vital Signs Temperature 97.7 F 08/19/24 22:21 Pulse Rate 109 H 08/19/24 22:21 Respiratory Rate 19 08/19/24 22:21 Blood Pressure 145/80 H 08/19/24 22:21 Pulse Oximetry 98 08/19/24 22:21 Oxygen Delivery Room Air 08/19/24 22:21 Temperature 97.7 F 08/19/24 22:21 Pulse Rate 109 H 08/19/24 22:21 Respiratory Rate 19 08/19/24 22:21 Blood Pressure 145/80 H 08/19/24 22:21 Pulse Oximetry 98 08/19/24 22:21 Oxygen Delivery Room Air 08/19/24 22:21 MDM - Extremity (Nontraumatic) MDM Narrative Medical decision making narrative: This is a 39-year-old female who presents to the ED with chief complaint of bilateral lower extremity swelling. Vitals are normal. Exam shows mild bilateral lower extremity swelling but no edema. Low suspicion for DVT or cellulitis. D-dimer is negative. White count is normal. Knee x-ray shows no acute findings. Suspect the leg pain is due to chronic lower leg pain with lumbar stenosis versus chronic lower leg pain with neuropathy. Advised patient to start using compression hose for venous stasis. Patient will be discharged in stable condition. Supportive measures discussed and return precautions given. Patient is understanding and agreeable with plan for discharge with PCP follow-up. Lab Data 08/19/24 23:10 08/19/24 23:10 Labs: Lab Results 08/19/24 Range/Units 23:10 WBC 7.9 (4.5-10.0) K/mm3 RBC 4.44 (4.2-5.4) M/mm3 Hgb 12.3 (12.0-15.0) g/dL Hct 38.1 (37.0-47.0) % MCV 85.8 (80-100) fl MCH 27.7 (26-34) pg MCHC 32.3 (32-36) g/dl RDW 16.4 H (11.5-14.5) % Plt Count 232 (150-375) k/mm3 MPV 10.2 (7.4-10.4) fl Immature Gran % (Auto) 0.3 (0-0.5) % Neut % (Auto) 51.1 (45.5-73.1) % Lymph % (Auto) 36.4 (18.3-44.2) % [place] % (Auto) 8.8 H (2.6-8.5) % Eos % (Auto) 2.5 (0-4.4) % Baso % (Auto) 0.9 (0.2-1.2) % Lymph # (Auto) 2.89 (0.9-3.2) K/mm3 [place] # (Auto) 0.7 H (0.1-0.6) K/mm3 Eos # (Auto) 0.2 (0-0.3) K/mm3 Baso # (Auto) 0.1 (0.0-0.1) K/mm3 Abs Immat Gran (auto) 0.02 (0.00-0.031) K/mm3 Absolute Neuts (auto) 4.1 (1.3-6.7) K/mm3 Absolute Nucleated RBC 0.000 (0.0-0.012) K/mm3 Nucleated RBC % 0.0 (0.0-0.2) % PT 13.1 (11.1-14.7) Seconds INR 1.0 APTT 25.8 (22.3-36.8) Seconds D-Dimer 0.35 (<0.48) ug/mL Sodium 136 L (137-145) mmol/L Potassium 4.1 (3.4-5.0) mmol/L Chloride 104 (98-107) mmol/L Carbon Dioxide 22 (22-30) mmol/L Anion Gap 10 (4-12) mmol/L BUN 24 H (7-17) mg/dL Creatinine 0.82 (0.7-1.0) mg/dL Estim Creat Clear Calc Not Reportable Estimated GFR > 60 (59 - ) Glucose 175 H (65-110) mg/dL Calcium 8.8 (8.4-10.2) mg/dL Discharge Plan Discharge Clinical Impression: Venous stasis of both lower extremities Patient Disposition: Home Condition: Stable Instructions: Antibiotic Form Additional Instructions: Exam and lab work today are reassuring. Please follow-up with PCP on this issue. Use compression hose for venous stasis. If you have any new or worsening symptoms please return to the ER for further evaluation. Patient Language: Maltese Prescriptions: No Action Creon 12,000-38,000 -60,000 unit capsule,delayed release(DR/EC) 2 cap PO TIDWM Qty: 180 0RF insulin lispro [Humalog KwikPen Insulin] 100 unit/mL insulin pen 8 unit SUBCUT TIDWMEAL insulin glargine [Lantus U-100 Insulin] 100 unit/mL solution 30 unit subcut HS gabapentin 600 mg tablet 600 mg PO TID atorvastatin 20 mg tablet 20 mg PO HS ergocalciferol (vitamin D2) 1,250 mcg (50,000 unit) capsule 50,000 unit PO WEEKLY Patient Comments: states she hasn't taken this medication for a couple of weeks. Rx Instructions: Takes on fridays ondansetron 4 mg tablet,disintegrating 4 mg PO Q8H PRN (Reason: nausea and vomiting) Qty: 10 0RF Patient Comments: unknown exact time taken yesterday ibuprofen 400 mg tablet 400 mg PO Q6H PRN (Reason: pain) Qty: 14 0RF Patient Comments: patients states she isn't aware of exact time she last took medication hydrocodone-acetaminophen 5-325 mg tablet 1 tablet PO Q8H PRN (Reason: pain) Qty: 10 0RF Patient Comments: patient states she took pain meds before coming to hospital, unknown exact time. tamsulosin [Flomax] 0.4 mg capsule 0.4 mg PO DAILY Qty: 10 0RF azithromycin 250 mg tablet 250 mg PO DAILY 4 Days Qty: 4 0RF Rx Instructions: start on day 2 of therapy (06/18/24); already received ABX in the ED 06/17 benzonatate 100 mg capsule 100 mg PO BID PRN (Reason: cough) Qty: 20 0RF Sore Throat and Cough 5-7.5 mg lozenge 1 reza PO Q4H PRN (Reason: cough) Qty: 18 0RF Follow-up/Referrals: Natahlia,Chayito Lui APN [Primary Care Provider] - Time of Disposition: 00:03
[2024-08-19 23:26] LABS: Anion Gap 10 mmol/L (4-12); Blood Urea Nitrogen 24 mg/dL (7-17); Calcium 8.8 mg/dL (8.4-10.2); Carbon Dioxide 22 mmol/L (22-30); Chloride 104 mmol/L (98-107); Estimated Glomerular Filt Rate > 60; Glucose 175 mg/dL (65-110); Potassium 4.1 mmol/L (3.4-5.0); Sodium 136 mmol/L (137-145)
[2024-08-19 23:34] LABS: Partial Thromboplastin Time 25.8 Seconds (22.3-36.8); Prothrombin Time 13.1 Seconds (11.1-14.7)
[2024-08-19 23:38] LABS: D Dimer 0.35 ug/mL (<0.48)
[2024-08-20 00:35] VITALS: BP 140/83; PULSE 98; RESP 17; O2SAT 99
[2024-08-20 00:36] VITALS: BP 140/83; PULSE 98; RESP 17; O2SAT 99
== END 2024-08-20 00:38 | disposition home or self-care (01) ==
PROVIDERS: Emergency Provider Physician Assistant; PCP Nurse Practitioner Family
DX: I87.8 Other specified disorders of veins (principal); I25.2 Old myocardial infarction; I10 Essential (primary) hypertension; J45.909 Unspecified asthma, uncomplicated; E78.5 Hyperlipidemia, unspecified; E11.40 Type 2 diabetes mellitus with diabetic neuropathy, unspecified; K86.1 Other chronic pancreatitis; K21.9 Gastro-esophageal reflux disease without esophagitis; Z87.442 Personal history of urinary calculi; Z90.49 Acquired absence of other specified parts of digestive tract; Z89.422 Acquired absence of other left toe(s); Z79.4 Long term (current) use of insulin; Z79.899 Other long term (current) drug therapy
CPT/HCPCS: 36415; 73562; 80048; 85025; 85380; 85610; 85730; 99283

== ENCOUNTER 2024-10-27 22:10 | Observation (INO) | payer OTHER, SELFPAY ==
--- NOTE | ~2024-10-27 | CT_ITS ---
CT of the Abdomen and Pelvis: Indication: Abdominal pain Technique: 2.5 mm axial scans were obtained through the abdomen and pelvis following intravenous adm inistration of 100 cc of Omnipaque 350. Dose reduction technique was used on this scan by utilizing a utomated exposure control and iterative reconstruction technique. The dose-length product (DLP) was 1 518.43 mGy-cm. COMPARISON: 06/17/2024 Findings: Scans through the lung bases are unremarkable. The liver, spleen, and adrenal glands are within normal limits. Cholecystectomy clips are present. 3 mm nonobstructing right renal stone present. 2 mm nonobstructing left renal stone present. Questionab le minimal haziness about the pancreatic head. There are a few focal coarse calcifications at the garay creatic head. No evidence of aortic aneurysm. No lymphadenopathy. No bowel obstruction or bowel wall thickening. There is no evidence to suggest acute appendicitis. Images through the pelvis were performed. Urinary bladder unremarkable. IUD in place. 3.3 cm right ov sheree cyst present. No ascites. Impression: Suspected minimal acute pancreatitis. Pancreatic calcifications suggest underlying chronic pancreatit is. Small bilateral nonobstructing renal stones, as above. 3.3 cm right ovarian cyst. Reviewed, dictated and finalized at location . Impression: Suspected minimal acute pancreatitis. Pancreatic calcifications suggest underly ing chronic pancreatitis. Small bilateral nonobstructing renal stones, as above. 3.3 cm right ovarian cyst.
--- NOTE | ~2024-10-27 | XR_ITS ---
Clinical Indication: Pain PA and lateral views of the chest: Comparison: 06/16/2024 Findings: Questionable minimal bibasilar pulmonary edema. No pleural effusion.. Cardiomediastinal si lhouette is stable. Bones and soft tissues are unremarkable. Impression: Questionable minimal bibasilar pulmonary edema. Reviewed, dictated and finalized at [facility]. Impression: Questionable minimal bibasilar pulmonary edema.
--- NOTE | ~2024-10-27 | MR_ITS ---
EXAMINATION: MR MRCP wo/w con/w 3D wo ind DATE: 10/29/2024 15:53 INDICATION: Recurrent pancreatitis post cholecystectomy, evaluate for choledocholithiasis. TECHNIQUE: Magnetic resonance imaging (MRI) of the abdomen was performed without intravenous contrast . Sequences included coronal T2-weighted FS FSE, coronal T2-weighted FSE, axial T1-weighted LAVA, cor onal FS FIESTA, axial dual-echo T1-weighted SPGR, coronal lava-FLEX, sagittal T2-weighted FSE, axial T2-weighted FSE, and axial DWI. Thick-slab T2-weighted FSE images were obtained for magnetic resonanc e cholangiopancreatography (MRCP). Maximum intensity projection 3-D reconstructions of the volumetric data were created by the technologist. Postcontrast sequences included coronal LAVA-flex and time co urse of axial T1-weighted LAVA. COMPARISON: None. Reference is made to CT examination of the abdomen and pelvis dated 10/28/2024 FINDINGS: ABDOMEN MRI: The gallbladder is surgically absent, consistent with patient's history. The liver is enlarged measuring 21 cm in longitudinal dimension. No abnormal contrast enhancement or signal intensity within the liver. Rounded fluid attenuation foci within the bilateral ovaries. Fat-containing ventral hernia. ABDOMEN MRCP: The common bile duct measures 8.5 mm in greatest caliber. Flow artifact is detected within the common bile duct on coronal view. The main pancreatic duct dilates to a maximal caliber of 4.6 mm within the body of the pancreas. Within the distal common bile duct, is a 2.7 mm filling defect (series 7, image 17). No intrahepatic biliary ductal dilatation. IMPRESSION: Filling defect within the distal common bile duct consistent with choledocholithiasis. No additional filling defects are appreciated. Reviewed, dictated and finalized at location A. IMPRESSION: Filling defect within the distal common bile duct consistent with choledocholit hiasis. No additional filling defects are appreciated.
[2024-10-27 22:11] VITALS: BP 149/82; PULSE 122; RESP 18; TEMP 36.9; O2SAT 97
--- NOTE | 2024-10-27 22:14 | ECG_ITS ---
Test Date: 2024-10-27 22:19:18 Measurements Intervals [place] Rate: 110 P: 71 MA: 163 QRS: 67 QRSD: 100 T: 94 QT: 331 QTc: 449 Interpretive Statements SINUS TACHYCARDIA POSSIBLE LEFT ATRIAL ENLARGEMENT INCOMPLETE RIGHT BUNDLE BRANCH BLOCK ANTEROSEPTAL INFARCT, AGE INDETERMINATE ST-T WAVE ABNORMALITY IN HIGH LATERAL LEADS- CONSIDER ISCHEMIA ABNORMAL ECG Compared to ECG 06/16/2024 23:54:58 POSSIBLE ISCHEMIA NOW PRESENT Electronically Signed On 10-28-2024 07:03:12 CDT by Arnol Berry D.O.
[2024-10-27 23:01] LABS: Basophils Absolute Auto 0.1 K/mm3 (0.0-0.1); Basophils Percent Auto 0.3 % (0.2-1.2); Eosinophils Absolute Auto 0.1 K/mm3 (0-0.3); Eosinophils Percent Auto 0.8 % (0-4.4); Hematocrit 39.8 % (37.0-47.0); Hemoglobin 12.9 g/dL (12.0-15.0); Immature Granulocyte Absolute 0.05 K/mm3 (0.00-0.031); Immature Granulocyte Percent A 0.3 % (0-0.5); Lymphocytes Absolute Auto 3.82 K/mm3 (0.9-3.2); Lymphocytes Percent Auto 24.2 % (18.3-44.2); Mean Corpuscular HGB Conc 32.4 g/dl (32-36); Mean Corpuscular Hemoglobin 27.7 pg (26-34); Mean Corpuscular Volume 85.4 fl (80-100); Mean Platelet Volume 10.7 fl (7.4-10.4); Monocytes Absolute Auto 1.2 K/mm3 (0.1-0.6); Monocytes Percent Auto 7.3 % (2.6-8.5); Neutrophils Absolute Auto 10.6 K/mm3 (1.3-6.7); Neutrophils Percent Auto 67.1 % (45.5-73.1); Platelet Count Result 220 k/mm3 (150-375); Red Blood Count 4.66 M/mm3 (4.2-5.4); Red Cell Distribution Width 14.5 % (11.5-14.5); White Blood Count 15.8 K/mm3 (4.5-10.0)
[2024-10-27 23:06] LABS: Alanine Aminotransferase 44 U/L (6-35); Albumin Level 3.7 g/dL (3.5-5.1); Alkaline Phosphatase 87 U/L (38-126); Anion Gap 8 mmol/L (4-12); Aspartate Amino Transferase 64 U/L (14-36); Bilirubin,Total 0.4 mg/dL (0.2-1.3); Blood Urea Nitrogen 15 mg/dL (7-17); Calcium 9.3 mg/dL (8.4-10.2); Carbon Dioxide 25 mmol/L (22-30); Chloride 103 mmol/L (98-107); Estimated Glomerular Filt Rate > 60; Glucose 131 mg/dL (65-110); Potassium 4.2 mmol/L (3.4-5.0); Sodium 136 mmol/L (137-145); Total Protein 7.6 g/dL (6.3-8.2)
[2024-10-27 23:18] LABS: NT Pro B Type Natriuretic Pept 604 pg/mL (19.9-100); Troponin I < 0.012 ng/mL (0.000-0.034)
[2024-10-27 23:21] LABS: Prothrombin Time 13.5 Seconds (11.1-14.7)
[2024-10-28] VITALS (43 sets, daily range): BP systolic 105–144; BP diastolic 46–88; PULSE 0–123; RESP 11–29; TEMP 36.4–36.9; O2SAT 83–100; BMI 48.5
[2024-10-28 00:11] LABS: Lipase 3057 U/L (23-300)
[2024-10-28] MEDS: ONDANSETRON INJ 4 MG/2 ML VIAL IV PUSH ×3 (01:32→18:33)
[2024-10-28] MEDS: SODIUM CHLORIDE 0.9% IV 1,000 ML 999 ML IV CONT (01:32)
[2024-10-28] MEDS: MORPHINE SULFATE (*CRX) 4 MG/ML INJ IV PUSH (01:32)
--- NOTE | 2024-10-28 03:11 | ED_ITS ---
HPI - General Adult General Chief complaint: Abdominal Pain Stated complaint: ABD pain, pancreatitis again? Time Seen by Provider: 10/28/24 00:51 History of Present Illness HPI narrative: Patient 39-year-old female who presents emergency department with chief complaint epigastric pain. The patient reports that she has prior history of pancreatitis also reports she has had a triple bypass and the patient reports he started having pain this evening felt similar to whenever she had pancreatitis in the past Related Data Home Medications ?Medication ?Instructions ?Recorded ?Confirmed ?Last Taken ?Type gabapentin 600 mg tablet 600 mg PO TID 03/11/21 10/03/23 10/02/23 20:00 History 600 insulin glargine 100 unit/mL 30 unit subcut HS 06/24/21 10/03/23 10/02/23 21:00 History subcutaneous solution (Lantus 30 Units U-100 Insulin) insulin lispro 100 unit/mL 8 unit subcut TIDWMEAL 06/24/21 10/03/23 10/02/23 18:00 History subcutaneous pen (Humalog KwikPen 8 units (U-100) Insulin) atorvastatin 20 mg tablet 20 mg PO HS 12/19/22 10/03/23 10/02/23 21:00 History 20 ergocalciferol (vitamin D2) 1,250 50,000 unit PO WEEKLY 12/19/22 10/03/23 12/09/22 09:00 History mcg (50,000 unit) capsule Allergies Allergy/AdvReac Type Severity Reaction Status Date / Time No Known Allergies Allergy Unknown Verified 08/19/24 22:25 Review of Systems 2 Review of Systems: A 10 system review of systems was completed on the patient and is negative except for what is stated in the HPI. Nursing and ancillary documentation was reviewed. 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 Surrogate medical decision maker: Carlee River, mother. Code status: Full code. Smoking status: Never smoker Alcohol intake: never Alcohol use details: Rare alcohol use. Substance use: never Substance use type: prescription drug Do You Feel Safe in your Home?: Yes Lack of Transportation: No Lack of Food: Never True Current Housing: I Have Housing Concerned About Future Housing: No Difficulty Paying Gas/Electric Bills: No Difficulty Paying for Meds: No Currently Unemployed: No Education: High School Diploma/GED Difficulty w/ Childcare or Family Care: No Living arrangements: with family Additional living arrangements comments: Lives in [place] with mother and significant other. Two children at home. Occupation/Education: unemployed Additional occupation/education comments: Applying for disability Spiritual care concerns: No Exam 2 Narrative: GENERAL: Well-appearing, well-nourished, and in no acute distress. HEAD: Normocephalic, atraumatic. EYES: PERRLA and EOMI. ENT: Nares clear, no rhinorrhea or epistaxis. Mucous membranes moist. NECK: Supple. CHEST: Clear to auscultation. No respiratory distress. HEART: Regular rate and rhythm. No murmur heard. Normal peripheral pulses. ABDOMEN: Soft, tenderness to palpation in the epigastric region, nondistended, normal active bowel sounds. EXTREMITIES: Normal range of motion. No edema. SKIN: Warm, dry, no rash. NEURO: No focal deficits. Alert and oriented x3. PSYCH: Normal mood and affect. Course Vital Signs Vital signs: Vital Signs Temperature 36.9 C 10/27/24 22:11 Pulse Rate 122 H 10/27/24 22:11 Respiratory Rate 18 10/27/24 22:11 Blood Pressure 149/82 H 10/27/24 22:11 Pulse Oximetry 97 10/27/24 22:11 Oxygen Delivery Room Air 10/27/24 22:11 Temperature 36.9 C 10/27/24 22:11 Pulse Rate 113 H 10/28/24 00:54 Respiratory Rate 29 H 10/28/24 00:54 Blood Pressure 144/46 H 10/28/24 00:54 Pulse Oximetry 92 10/28/24 02:05 Oxygen Delivery Nasal Cannula 10/28/24 02:05 Oxygen Flow Rate 2 10/28/24 02:05 Medical Decision Making Vital Signs Vital Signs: Vital Signs Temperature 36.9 C 10/27/24 22:11 Pulse Rate 122 H 10/27/24 22:11 Respiratory Rate 18 10/27/24 22:11 Blood Pressure 149/82 H 10/27/24 22:11 Pulse Oximetry 97 10/27/24 22:11 Oxygen Delivery Room Air 10/27/24 22:11 Temperature 36.9 C 10/27/24 22:11 Pulse Rate 113 H 10/28/24 00:54 Respiratory Rate 29 H 10/28/24 00:54 Blood Pressure 144/46 H 10/28/24 00:54 Pulse Oximetry 92 10/28/24 02:05 Oxygen Delivery Nasal Cannula 10/28/24 02:05 Oxygen Flow Rate 2 10/28/24 02:05 Lab Data 10/27/24 22:50 10/27/24 22:50 Labs: Lab Results 10/27/24 Range/Units 22:50 WBC 15.8 H (4.5-10.0) K/mm3 RBC 4.66 (4.2-5.4) M/mm3 Hgb 12.9 (12.0-15.0) g/dL Hct 39.8 (37.0-47.0) % MCV 85.4 (80-100) fl MCH 27.7 (26-34) pg MCHC 32.4 (32-36) g/dl RDW 14.5 (11.5-14.5) % Plt Count 220 (150-375) k/mm3 MPV 10.7 H (7.4-10.4) fl Immature Gran % (Auto) 0.3 (0-0.5) % Neut % (Auto) 67.1 (45.5-73.1) % Lymph % (Auto) 24.2 (18.3-44.2) % [place] % (Auto) 7.3 (2.6-8.5) % Eos % (Auto) 0.8 (0-4.4) % Baso % (Auto) 0.3 (0.2-1.2) % Lymph # (Auto) 3.82 H (0.9-3.2) K/mm3 [place] # (Auto) 1.2 H (0.1-0.6) K/mm3 Eos # (Auto) 0.1 (0-0.3) K/mm3 Baso # (Auto) 0.1 (0.0-0.1) K/mm3 Abs Immat Gran (auto) 0.05 H (0.00-0.031) K/mm3 Absolute Neuts (auto) 10.6 H (1.3-6.7) K/mm3 Absolute Nucleated RBC 0.000 (0.0-0.012) K/mm3 Nucleated RBC % 0.0 (0.0-0.2) % PT 13.5 (11.1-14.7) Seconds INR 1.0 APTT 29.0 (22.3-36.8) Seconds Sodium 136 L (137-145) mmol/L Potassium 4.2 (3.4-5.0) mmol/L Chloride 103 (98-107) mmol/L Carbon Dioxide 25 (22-30) mmol/L Anion Gap 8 (4-12) mmol/L BUN 15 D (7-17) mg/dL Creatinine 0.97 (0.7-1.0) mg/dL Estim Creat Clear Calc Not Reportable Estimated GFR > 60 (59 - ) Glucose 131 H (65-110) mg/dL Calcium 9.3 (8.4-10.2) mg/dL Total Bilirubin 0.4 (0.2-1.3) mg/dL AST 64 H (14-36) U/L ALT 44 H (6-35) U/L Alkaline Phosphatase 87 (38-126) U/L Troponin I < 0.012 (0.000-0.034) ng/mL NT-Pro-B Natriuret Pep 604 H (19.9-100) pg/mL Total Protein 7.6 (6.3-8.2) g/dL Albumin 3.7 (3.5-5.1) g/dL Lipase 3057 H (23-300) U/L Discharge Plan Discharge Clinical Impression: Abdominal pain, Acute pancreatitis Patient Disposition: Still a Patient Condition: Stable Instructions: Antibiotic Form Patient Language: Surinamese Prescriptions: No Action Creon 12,000-38,000 -60,000 unit capsule,delayed release(DR/EC) 2 cap PO TIDWM Qty: 180 0RF insulin lispro [Humalog KwikPen Insulin] 100 unit/mL insulin pen 8 unit SUBCUT TIDWMEAL insulin glargine [Lantus U-100 Insulin] 100 unit/mL solution 30 unit subcut HS gabapentin 600 mg tablet 600 mg PO TID atorvastatin 20 mg tablet 20 mg PO HS ergocalciferol (vitamin D2) 1,250 mcg (50,000 unit) capsule 50,000 unit PO WEEKLY Patient Comments: states she hasn't taken this medication for a couple of weeks. Rx Instructions: Takes on fridays ondansetron 4 mg tablet,disintegrating 4 mg PO Q8H PRN (Reason: nausea and vomiting) Qty: 10 0RF Patient Comments: unknown exact time taken yesterday ibuprofen 400 mg tablet 400 mg PO Q6H PRN (Reason: pain) Qty: 14 0RF Patient Comments: patients states she isn't aware of exact time she last took medication hydrocodone-acetaminophen 5-325 mg tablet 1 tablet PO Q8H PRN (Reason: pain) Qty: 10 0RF Patient Comments: patient states she took pain meds before coming to hospital, unknown exact time. tamsulosin [Flomax] 0.4 mg capsule 0.4 mg PO DAILY Qty: 10 0RF azithromycin 250 mg tablet 250 mg PO DAILY 4 Days Qty: 4 0RF Rx Instructions: start on day 2 of therapy (06/18/24); already received ABX in the ED 06/17 benzonatate 100 mg capsule 100 mg PO BID PRN (Reason: cough) Qty: 20 0RF Sore Throat and Cough 5-7.5 mg lozenge 1 reza PO Q4H PRN (Reason: cough) Qty: 18 0RF Follow-up/Referrals: Sloan,Chayito Lui APN [Primary Care Provider] - Time of Disposition: 04:15
[2024-10-28] MEDS: MORPHINE SULFATE (*CRX) 2 MG/ML INJ IV PUSH ×3 (05:24→18:29)
--- NOTE | 2024-10-28 05:52 | ADMGEN ---
This patient, Gem oMrales, was admitted to IMU Room 210-01 at 0552. Patient/family oriented to hospital policies and general routines including ID bracelet, bed and alarms, visiting hours, pain management, procedures, bathroom and other care routines, personal items, smoking policy, room service/diet, and visiting hours. Information on how to activate the Rapid Response Team has been discussed. Patient/Family are encouraged to report perceived risks to care and to ask questions if they do not understand what they are told or what they should do.
--- NOTE | 2024-10-28 08:00 | PC.NURSE ---
Notified Dr Mcfarlane that the pt arrived around 0600 to IMU and is awaiting more orders. to review chart.
[2024-10-28 08:29] LABS: Glucose Point of Care 110 mg/dl (65-105)
--- NOTE | 2024-10-28 12:26 | PC.NURSE ---
DR Mcfarlane on the unit, reminded MD that the patient will need orders placed, home meds reconciled, fluids reviewed. MD to see the patient and review the chart.
--- NOTE | 2024-10-28 13:19 | PM.IMHP ---
H&P: HPI History of Present Illness Date/Time: 10/28/24 13:19 Chief Complaint: abdominal pains Narrative: pt admitted with epigastric pains pt has history of pancreatitis in the past pt describes epigastric pains no nausea or vomiting no jaundice or dark stools pt denies drinking alcohol history of gallbladder stones with lithotripsy in the past possible retained gallstone pt has history of dm, cad with by pass pt denies any new medications hbaic is 9 sugars are 434 lfts 64,44, lipase 3057 gi recommends mrcp Review of Systems Review of Systems: epigastric pains and nausea, all other 12 systems are negative apart from those in hpi [facility] Past Medical History Medical History Non-ST elevation [place] (NSTEMI) Pneumonia 2023 Chronic pancreatitis Hypertriglyceridemia Dyslipidemia Gastroesophageal reflux disease Insulin dependent type 2 diabetes mellitus Poorly controlled with last A1c of 10.3 in 2022 Hepatic steatosis With hepatomegaly Kidney stones Diabetic neuropathy Osteomyelitis of ankle or foot, left, acute (2020) Psoriasis Asthma Hypertension Surgical History Surgical History History of laparoscopic cholecystectomy (06/20/22) 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 Surrogate medical decision maker: Carlee River, mother. Code status: Full code. Smoking status: Never smoker Alcohol intake: never Alcohol use details: Rare alcohol use. Substance use: never Substance use type: marijuana Last use: 3-4 mos Do You Feel Safe in your Home?: Yes Lack of Transportation: No Lack of Food: Never True Current Housing: I Have Housing Concerned About Future Housing: No Difficulty Paying Gas/Electric Bills: No Difficulty Paying for Meds: No Currently Unemployed: No Education: Decline to Answer Difficulty w/ Childcare or Family Care: No Living arrangements: with family Additional living arrangements comments: Lives in [place] with mother and significant other. Two children at home. Occupation/Education: unemployed Additional occupation/education comments: Applying for disability Spiritual care concerns: No Meds Home Medications and Allergies Home Medications ?Medication ?Instructions ?Recorded ?Confirmed ?Type gabapentin 600 mg tablet 600 mg PO TID 03/11/21 10/28/24 History atorvastatin 20 mg tablet 40 mg PO HS 12/19/22 10/28/24 History ergocalciferol (vitamin D2) 1,250 50,000 unit PO WEEKLY 12/19/22 10/28/24 History mcg (50,000 unit) capsule [id number] 2 cap PO TIDWM #180 caps 04/11/23 10/28/24 Rx 12,000-38,000-60,000 unit capsule,delayed rel (Creon) hydrocodone 5 mg-acetaminophen 325 1 tablet PO Q8H PRN pain #10 tabs 09/30/23 10/28/24 Rx mg tablet ibuprofen 400 mg tablet 400 mg PO Q6H PRN pain #14 tabs 09/30/23 10/28/24 Rx ondansetron 4 mg disintegrating 4 mg PO Q8H PRN nausea and 09/30/23 10/28/24 Rx tablet vomiting #10 tabs tamsulosin 0.4 mg capsule (Flomax) 0.4 mg PO DAILY #10 caps 09/30/23 10/28/24 Rx blood-glucose sensor (Guardian 4 10/28/24 10/28/24 History Glucose Sensor device) blood-glucose transmitter 10/28/24 10/28/24 History (Guardian 4 Transmitter device) clopidogrel 75 mg tablet 75 mg PO DAILY 10/28/24 10/28/24 History duloxetine 30 mg capsule,delayed 30 mg PO BID 10/28/24 10/28/24 History release furosemide 20 mg tablet 20 mg PO BID 10/28/24 10/28/24 History metformin 500 mg tablet 1,000 mg PO BID 10/28/24 10/28/24 History metoprolol succinate 50 mg 50 mg PO Q12H 10/28/24 10/28/24 History tablet,extended release 24 hr Allergies Allergy/AdvReac Type Severity Reaction Status Date / Time No Known Allergies Allergy Unknown Verified 08/19/24 22:25 Vital Signs Vital Signs - 24 hr 10/27/24 22:11 10/28/24 00:49 10/28/24 00:54 Temperature 36.9 C Pulse Rate 122 H 116 H 113 H Respiratory Rate 18 21 H 29 H Blood Pressure 149/82 H 144/46 H Pulse Oximetry 97 96 100 Oxygen Delivery Room Air Oxygen Flow Rate 10/28/24 00:55 10/28/24 01:05 10/28/24 01:15 Temperature Pulse Rate 123 H 112 H Respiratory Rate 27 H 23 H Blood Pressure 144/46 H Pulse Oximetry 96 Oxygen Delivery Oxygen Flow Rate 10/28/24 01:56 10/28/24 02:04 10/28/24 02:05 Temperature Pulse Rate 117 H 114 H Respiratory Rate 13 Blood Pressure 114/52 L Pulse Oximetry 88 L 99 83 L Oxygen Delivery Room Air Oxygen Flow Rate 10/28/24 02:05 10/28/24 02:06 10/28/24 02:15 Temperature Pulse Rate 113 H 113 H Respiratory Rate 15 17 Blood Pressure Pulse Oximetry 92 96 96 Oxygen Delivery Nasal Cannula Oxygen Flow Rate 2 10/28/24 02:30 10/28/24 02:48 10/28/24 03:01 Temperature Pulse Rate 116 H 116 H 112 H Respiratory Rate 17 18 Blood Pressure 131/73 Pulse Oximetry 96 97 98 Oxygen Delivery Oxygen Flow Rate 10/28/24 03:02 10/28/24 03:15 10/28/24 03:16 Temperature Pulse Rate 112 H 110 H 112 H Respiratory Rate 18 17 15 Blood Pressure 134/72 Pulse Oximetry 97 96 96 Oxygen Delivery Oxygen Flow Rate 10/28/24 03:30 10/28/24 03:31 10/28/24 03:45 Temperature Pulse Rate 109 H 108 H 106 H Respiratory Rate 11 L 16 14 Blood Pressure 123/79 Pulse Oximetry 98 99 97 Oxygen Delivery Oxygen Flow Rate 10/28/24 03:46 10/28/24 04:02 10/28/24 04:15 Temperature Pulse Rate 107 H 108 H 0 L Respiratory Rate 14 15 Blood Pressure 120/73 Pulse Oximetry 97 97 98 Oxygen Delivery Oxygen Flow Rate 10/28/24 04:16 10/28/24 04:17 10/28/24 04:39 Temperature Pulse Rate 107 H 109 H 105 H Respiratory Rate 12 Blood Pressure 120/69 134/86 Pulse Oximetry 98 98 93 Oxygen Delivery Oxygen Flow Rate 10/28/24 04:40 10/28/24 04:45 10/28/24 05:19 Temperature 36.6 C 36.9 C Pulse Rate 105 H 108 H 68 Respiratory Rate 16 18 16 Blood Pressure 124/74 118/64 Pulse Oximetry 92 95 90 Oxygen Delivery Oxygen Flow Rate 10/28/24 06:00 10/28/24 06:08 10/28/24 08:00 Temperature 36.5 C Pulse Rate 103 H 103 H Respiratory Rate 22 H Blood Pressure 136/88 Pulse Oximetry 98 97 Oxygen Delivery Nasal Cannula Oxygen Flow Rate 2 10/28/24 08:00 10/28/24 08:00 10/28/24 08:37 Temperature 36.5 C Pulse Rate 98 100 Respiratory Rate 18 Blood Pressure 124/74 Pulse Oximetry 89 L 98 Oxygen Delivery Room Air Oxygen Flow Rate 10/28/24 10:00 10/28/24 11:54 10/28/24 12:00 Temperature Pulse Rate 95 97 Respiratory Rate Blood Pressure Pulse Oximetry 96 Oxygen Delivery Nasal Cannula Oxygen Flow Rate 2 10/28/24 12:00 Temperature 36.4 C Pulse Rate 96 Respiratory Rate 20 Blood Pressure 132/75 Pulse Oximetry 97 Oxygen Delivery Oxygen Flow Rate Exam Const: General: cooperative, healthy appearing and overweight; No in distress Nutritional Appearance: overweight Orientation/consciousness: oriented to person HENMT: Head: normal to inspection Resp: Effort & Inspection: no respiratory distress Auscultation: no rhonchi and no wheezes Cardio: Rate: regular rate Rhythm: regular rhythm GI: Inspection: normal to inspection GI Palp: No abdominal tenderness, No Guarding due to palpation present (GI) and No Hepatomegaly present Auscultation: normal bowel sounds Neuro: General: oriented to person H&P: Results Labs Labs: Short CBC 10/27/24 Range/Units 22:50 WBC 15.8 H (4.5-10.0) K/mm3 Hgb 12.9 (12.0-15.0) g/dL Hct 39.8 (37.0-47.0) % Plt Count 220 (150-375) k/mm3 BMP 10/27/24 22:50 Sodium 136 L Potassium 4.2 Chloride 103 Carbon Dioxide 25 BUN 15 D Creatinine 0.97 Glucose 131 H Calcium 9.3 Cardiac Enzymes 10/27/24 Range/Units 22:50 Troponin I < 0.012 (0.000-0.034) ng/mL Liver Function 10/27/24 Range/Units 22:50 Total Bilirubin 0.4 (0.2-1.3) mg/dL AST 64 H (14-36) U/L ALT 44 H (6-35) U/L Alkaline Phosphatase 87 (38-126) U/L Albumin 3.7 (3.5-5.1) g/dL Assessment and Plan Assessment and plan (1) Multiple vessel coronary artery disease: Code(s): I25.10 - Atherosclerotic heart disease of [place] coronary artery without angina pectoris Status: Acute Assessment and Plan: continue patients home medications (2) Hypercholesterolemia: Code(s): E78.00 - Pure hypercholesterolemia, unspecified Status: Acute Assessment and Plan: continue patients home medications (3) Type 2 diabetes mellitus: Qualifiers: Diabetes mellitus terminal supervisor insulin use: without terminal supervisor use Diabetes mellitus complication status: with hyperglycemia Qualified Code(s): E11.65 - Type 2 diabetes mellitus with hyperglycemia Code(s): E11.9 - Type 2 diabetes mellitus without complications Status: Acute Assessment and Plan: accuchecks, ssi (4) Acute on chronic pancreatitis: Code(s): K85.90 - Acute pancreatitis without necrosis or infection, unspecified; K86.1 - Other chronic pancreatitis Status: Acute Assessment and Plan: keep npo with fluids await gi md consult watch cmp and lipase levels prn pain meds iv antiemetics iv pt to have mrcp possible ercp pending results watch cmp and lipase levels (5) Abdominal pain: Code(s): R10.9 - Unspecified abdominal pain Status: Acute Assessment and Plan: secondary to pancreatitis Quality VTE Prophylaxis VTE prophylaxis: pharmacologic ordered Hospitalist [facility] Advance Care Plan I have confirmed that the patient's Advanced Care Plan is present, code status is documented, or surrogate decision maker is listed in patient medical record.: Yes Medication Reconciliation I have utilized all available resources to obtain, update and review the patients current medications (includes all prescriptions, OTC, herbals, cannabis, and nutritional supplements).: Yes
[2024-10-28] MEDS: GABAPENTIN 300 MG CAPSULE 600 MG PO ×2 (13:37→16:03)
[2024-10-28] MEDS: DEXTROSE 5%/0.45% SOD CHL 1,000 ML 70 ML IV CONT (13:38)
[2024-10-28] MEDS: LACTATED RINGERS 1,000 ML 70 ML IV CONT (16:02)
[2024-10-28] MEDS: DULoxetine HCL 30 MG CAPSULE.DR PO (16:03)
[2024-10-28] MEDS: LIPASE/AMYLASE/PROTEASE 12,000 UNITS CAP 2 CAP PO (16:04)
[2024-10-28 16:54] LABS: Glucose Point of Care 142 mg/dl (65-105)
[2024-10-28] MEDS: ATORVASTATIN 40 MG TABLET PO (20:23)
[2024-10-28] MEDS: METOPROLOL SUCCINATE EXT REL 50 MG TABCR PO (20:23)
--- NOTE | 2024-10-28 20:27 | WPDGICN ---
Assessment and Plan Assessment and plan (1) Acute pancreatitis: Code(s): K85.90 - Acute pancreatitis without necrosis or infection, unspecified Status: Acute Assessment and Plan: The patient has her 3rd episode of acute pancreatitis, presumably, according to her history, due to retained choledocholithiasis. However, the subtle pancreatic calcifications described on CT scan point toward a possible underlying chronic pancreatitis. Will obtain an MRCP, and if choledocholithiasis is reported, will proceed with ERCP. If the MRCP is normal, will refer to a tertiary center for endoscopic ultrasound and a closer evaluation of her distal common bile duct once this acute episode subsides and patient is able to tolerate diet. In the meantime will continue to provide hydration at the same rate, i.e., 125 cc/hour, and will check daily hematocrit and BUN. GI Consult Note Consult date/time: 10/28/24 20:27 HPI: Gem Morales, a 39-year-old woman, has been admitted with her third recurrence of acute pancreatitis. Her medical history indicates her initial episode occurred about two years ago, preceding a laparoscopic cholecystectomy. A second episode of pancreatitis followed, believed to be due to a retained common bile duct stone. This particular procedure was challenging, necessitating a biliary stent. Soon after, she suffered a myocardial infarction, leading to a diagnosis of triple-vessel disease and subsequent CABG. This took priority delaying ERCP and stone extraction. She remained asymptomatic until yesterday afternoon, when she presented to the emergency room with acute, severe epigastric pain radiating to her back. Diagnosis of acute pancreatitis was confirmed by a lipase level exceeding 3000 U/L. A CT scan revealed pancreatic parenchymal calcifications, but notably, no biliary duct dilation or signs of choledocholithiasis . Her transaminase levels are only mildly elevated. She is currently stable, receiving intravenous lactated Ringer's, and reports being pain-free. Review of Systems Review of Systems: All systems reviewed & are unremarkable except as noted in HPI and below PMFSH Past Medical History Medical History Non-ST elevation [place] (NSTEMI) Pneumonia 2023 Chronic pancreatitis Hypertriglyceridemia Dyslipidemia Gastroesophageal reflux disease Insulin dependent type 2 diabetes mellitus Poorly controlled with last A1c of 10.3 in 2022 Hepatic steatosis With hepatomegaly Kidney stones Diabetic neuropathy Osteomyelitis of ankle or foot, left, acute (2020) Psoriasis Asthma Hypertension Surgical History Surgical History History of laparoscopic cholecystectomy (06/20/22) 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 Surrogate medical decision maker: Carlee River, mother. Code status: Full code. Smoking status: Never smoker Alcohol intake: never Alcohol use details: Rare alcohol use. Substance use: never Substance use type: marijuana Last use: 3-4 mos Do You Feel Safe in your Home?: Yes Lack of Transportation: No Lack of Food: Never True Current Housing: I Have Housing Concerned About Future Housing: No Difficulty Paying Gas/Electric Bills: No Difficulty Paying for Meds: No Currently Unemployed: No Education: Decline to Answer Difficulty w/ Childcare or Family Care: No Living arrangements: with family Additional living arrangements comments: Lives in [place] with mother and significant other. Two children at home. Occupation/Education: unemployed Additional occupation/education comments: Applying for disability Spiritual care concerns: No Meds Home Medications and Allergies Home Medications ?Medication ?Instructions ?Recorded ?Confirmed ?Type gabapentin 600 mg tablet 600 mg PO TID 03/11/21 10/28/24 History atorvastatin 20 mg tablet 40 mg PO HS 12/19/22 10/28/24 History ergocalciferol (vitamin D2) 1,250 50,000 unit PO WEEKLY 12/19/22 10/28/24 History mcg (50,000 unit) capsule [id number] 2 cap PO TIDWM #180 caps 04/11/23 10/28/24 Rx 12,000-38,000-60,000 unit capsule,delayed rel (Creon) hydrocodone 5 mg-acetaminophen 325 1 tablet PO Q8H PRN pain #10 tabs 09/30/23 10/28/24 Rx mg tablet ibuprofen 400 mg tablet 400 mg PO Q6H PRN pain #14 tabs 09/30/23 10/28/24 Rx ondansetron 4 mg disintegrating 4 mg PO Q8H PRN nausea and 09/30/23 10/28/24 Rx tablet vomiting #10 tabs tamsulosin 0.4 mg capsule (Flomax) 0.4 mg PO DAILY #10 caps 09/30/23 10/28/24 Rx blood-glucose sensor (Guardian 4 10/28/24 10/28/24 History Glucose Sensor device) blood-glucose transmitter 10/28/24 10/28/24 History (Guardian 4 Transmitter device) clopidogrel 75 mg tablet 75 mg PO DAILY 10/28/24 10/28/24 History duloxetine 30 mg capsule,delayed 30 mg PO BID 10/28/24 10/28/24 History release furosemide 20 mg tablet 20 mg PO BID 10/28/24 10/28/24 History metformin 500 mg tablet 1,000 mg PO BID 10/28/24 10/28/24 History metoprolol succinate 50 mg 50 mg PO Q12H 10/28/24 10/28/24 History tablet,extended release 24 hr Allergies Allergy/AdvReac Type Severity Reaction Status Date / Time No Known Allergies Allergy Unknown Verified 08/19/24 22:25 Vital Signs Vital Signs - 24 hr 10/27/24 22:11 10/28/24 00:49 10/28/24 00:54 Temperature 98.5 F Pulse Rate 122 H 116 H 113 H Respiratory Rate 18 21 H 29 H Blood Pressure 149/82 H 144/46 H Pulse Oximetry 97 96 100 Oxygen Delivery Room Air Oxygen Flow Rate 10/28/24 00:55 10/28/24 01:05 10/28/24 01:15 Temperature Pulse Rate 123 H 112 H Respiratory Rate 27 H 23 H Blood Pressure 144/46 H Pulse Oximetry 96 Oxygen Delivery Oxygen Flow Rate 10/28/24 01:56 10/28/24 02:04 10/28/24 02:05 Temperature Pulse Rate 117 H 114 H Respiratory Rate 13 Blood Pressure 114/52 L Pulse Oximetry 88 L 99 83 L Oxygen Delivery Room Air Oxygen Flow Rate 10/28/24 02:05 10/28/24 02:06 10/28/24 02:15 Temperature Pulse Rate 113 H 113 H Respiratory Rate 15 17 Blood Pressure Pulse Oximetry 92 96 96 Oxygen Delivery Nasal Cannula Oxygen Flow Rate 2 10/28/24 02:30 10/28/24 02:48 10/28/24 03:01 Temperature Pulse Rate 116 H 116 H 112 H Respiratory Rate 17 18 Blood Pressure 131/73 Pulse Oximetry 96 97 98 Oxygen Delivery Oxygen Flow Rate 10/28/24 03:02 10/28/24 03:15 10/28/24 03:16 Temperature Pulse Rate 112 H 110 H 112 H Respiratory Rate 18 17 15 Blood Pressure 134/72 Pulse Oximetry 97 96 96 Oxygen Delivery Oxygen Flow Rate 10/28/24 03:30 10/28/24 03:31 10/28/24 03:45 Temperature Pulse Rate 109 H 108 H 106 H Respiratory Rate 11 L 16 14 Blood Pressure 123/79 Pulse Oximetry 98 99 97 Oxygen Delivery Oxygen Flow Rate 10/28/24 03:46 10/28/24 04:02 10/28/24 04:15 Temperature Pulse Rate 107 H 108 H 0 L Respiratory Rate 14 15 Blood Pressure 120/73 Pulse Oximetry 97 97 98 Oxygen Delivery Oxygen Flow Rate 10/28/24 04:16 10/28/24 04:17 10/28/24 04:39 Temperature Pulse Rate 107 H 109 H 105 H Respiratory Rate 12 Blood Pressure 120/69 134/86 Pulse Oximetry 98 98 93 Oxygen Delivery Oxygen Flow Rate 10/28/24 04:40 10/28/24 04:45 10/28/24 05:19 Temperature 97.8 F 98.4 F Pulse Rate 105 H 108 H 68 Respiratory Rate 16 18 16 Blood Pressure 124/74 118/64 Pulse Oximetry 92 95 90 Oxygen Delivery Oxygen Flow Rate 10/28/24 06:00 10/28/24 06:08 10/28/24 08:00 Temperature 97.7 F Pulse Rate 103 H 103 H Respiratory Rate 22 H Blood Pressure 136/88 Pulse Oximetry 98 97 Oxygen Delivery Nasal Cannula Oxygen Flow Rate 2 10/28/24 08:00 10/28/24 08:00 10/28/24 08:37 Temperature 97.7 F Pulse Rate 98 100 Respiratory Rate 18 Blood Pressure 124/74 Pulse Oximetry 89 L 98 Oxygen Delivery Room Air Oxygen Flow Rate 10/28/24 10:00 10/28/24 11:54 10/28/24 12:00 Temperature Pulse Rate 95 97 Respiratory Rate Blood Pressure Pulse Oximetry 96 Oxygen Delivery Nasal Cannula Oxygen Flow Rate 2 10/28/24 12:00 10/28/24 14:00 10/28/24 16:00 Temperature 97.6 F 98.1 F Pulse Rate 96 92 89 Respiratory Rate 20 20 Blood Pressure 132/75 105/58 L Pulse Oximetry 97 100 Oxygen Delivery Oxygen Flow Rate 10/28/24 16:00 10/28/24 16:00 10/28/24 18:00 Temperature Pulse Rate 88 95 Respiratory Rate Blood Pressure Pulse Oximetry 97 Oxygen Delivery Nasal Cannula Oxygen Flow Rate 2 10/28/24 19:35 10/28/24 20:23 Temperature 98.1 F Pulse Rate 99 99 Respiratory Rate 16 Blood Pressure 127/55 L Pulse Oximetry 96 Oxygen Delivery Oxygen Flow Rate Exam Const: General: cooperative and healthy appearing Resp: Effort & Inspection: normal respiratory effort and able to speak in complete sentences Auscultation: clear to auscultation bilaterally Cardio: Rate: regular rate Rhythm: regular rhythm GI: Inspection: normal to inspection GI Palp: No No hepatosplenomegaly present Auscultation: normal bowel sounds Rectal Exam: deferred Skin: General skin exam: normal color Psych: Appearance: grossly normal Mental Status: mental status grossly normal Results Labs 10/27/24 22:50 10/27/24 22:50 Labs: Short CBC 10/27/24 Range/Units 22:50 WBC 15.8 H (4.5-10.0) K/mm3 Hgb 12.9 (12.0-15.0) g/dL Hct 39.8 (37.0-47.0) % Plt Count 220 (150-375) k/mm3 [facility] 10/27/24 22:50 Sodium 136 L Potassium 4.2 Chloride 103 Carbon Dioxide 25 BUN 15 D Creatinine 0.97 Glucose 131 H Calcium 9.3 Cardiac Enzymes 10/27/24 Range/Units 22:50 Troponin I < 0.012 (0.000-0.034) ng/mL Liver Function 10/27/24 Range/Units 22:50 Total Bilirubin 0.4 (0.2-1.3) mg/dL AST 64 H (14-36) U/L ALT 44 H (6-35) U/L Alkaline Phosphatase 87 (38-126) U/L Albumin 3.7 (3.5-5.1) g/dL
[2024-10-28 21:12] LABS: Hematocrit 40.1 % (37.0-47.0); Hemoglobin 12.5 g/dL (12.0-15.0); Mean Corpuscular HGB Conc 31.2 g/dl (32-36); Mean Corpuscular Hemoglobin 28.1 pg (26-34); Mean Corpuscular Volume 90.1 fl (80-100); Mean Platelet Volume 10.8 fl (7.4-10.4); Platelet Count Result 183 k/mm3 (150-375); Red Blood Count 4.45 M/mm3 (4.2-5.4); Red Cell Distribution Width 14.6 % (11.5-14.5); White Blood Count 8.5 K/mm3 (4.5-10.0)
[2024-10-29] VITALS (16 sets, daily range): BP systolic 114–135; BP diastolic 63–73; PULSE 79–98; RESP 16–20; TEMP 36.5–36.9; O2SAT 91–98
[2024-10-29] MEDS: LACTATED RINGERS 1,000 ML 125 ML IV CONT ×2 (03:33→12:01)
[2024-10-29] MEDS: MORPHINE SULFATE (*CRX) 2 MG/ML INJ IV PUSH (03:33)
[2024-10-29 05:53] LABS: Glucose Point of Care 139 mg/dl (65-105)
--- NOTE | 2024-10-29 07:54 | PM.IMPN ---
Progress Note: A&P Assessment and Plan (1) Multiple vessel coronary artery disease: Code(s): I25.10 - Atherosclerotic heart disease of [place] coronary artery without angina pectoris Status: Acute Assessment and Plan: continue patients home medications (2) Hypercholesterolemia: Code(s): E78.00 - Pure hypercholesterolemia, unspecified Status: Acute Assessment and Plan: continue patients home medications (3) Type 2 diabetes mellitus: Qualifiers: Diabetes mellitus joint terminal attack controller insulin use: without joint terminal attack controller use Diabetes mellitus complication status: with hyperglycemia Qualified Code(s): E11.65 - Type 2 diabetes mellitus with hyperglycemia Code(s): E11.9 - Type 2 diabetes mellitus without complications Status: Acute Assessment and Plan: accuchecks, ssi (4) Acute on chronic pancreatitis: Code(s): K85.90 - Acute pancreatitis without necrosis or infection, unspecified; K86.1 - Other chronic pancreatitis Status: Acute Assessment and Plan: keep npo with fluids await gi md consult watch cmp and lipase levels prn pain meds iv antiemetics iv pt to have mrcp possible ercp pending results watch cmp and lipase levels (5) Abdominal pain: Code(s): R10.9 - Unspecified abdominal pain Status: Acute Assessment and Plan: secondary to pancreatitis Plan Acute on chronic pancreatitis IVF Pain management, Creon monitor lab results MRCP pending GI team on board uncontrolled DM2 SSI and accu checks CAD S/P CABG statin, ASa, Plavix, metoprolol HLD Statin HTN [employer] meds morbid obesity Lifestyle modification HfREF EF30-35% in 2023 statin, ASa, Plavix, metoprolol Will continue to monitor Subjective Date/time seen: 10/29/24 07:54 Interval history: per HPi: pt admitted with epigastric pains pt has history of pancreatitis in the past pt describes epigastric pains no nausea or vomiting no jaundice or dark stools pt denies drinking alcohol history of gallbladder stones with lithotripsy in the past possible retained gallstone pt has history of dm, cad with by pass pt denies any new medications hbaic is 9 sugars are 434 lfts 64,44, lipase 3057 gi recommends mrcp 10/29/24 Patient was seen examined at bedside. she still complaining of 5/10 sharp epigastric pain. Denies any chest pain, shortness off breath, nausea vomiting. GI team on board. Plan for MRCP today Review of Systems Review of Systems: epigastric pains and nausea, all other 12 systems are negative apart from those in hpi Exam Const: General: cooperative, healthy appearing and overweight; No in distress Nutritional Appearance: overweight Orientation/consciousness: oriented to person HENMT: Head: normal to inspection Resp: Effort & Inspection: no respiratory distress Auscultation: no rhonchi and no wheezes Cardio: Rate: regular rate Rhythm: regular rhythm GI: Inspection: normal to inspection Auscultation: normal bowel sounds Neuro: General: oriented to person Objective Data Vital Signs Vital Signs: Vital Signs - 24 hr 10/28/24 08:00 10/28/24 08:00 10/28/24 08:00 Temperature 97.7 F Pulse Rate 98 100 Respiratory Rate 18 Blood Pressure 124/74 Pulse Oximetry 97 89 L Oxygen Delivery Nasal Cannula Oxygen Flow Rate 2 10/28/24 08:37 10/28/24 10:00 10/28/24 11:54 Temperature Pulse Rate 95 Respiratory Rate Blood Pressure Pulse Oximetry 98 96 Oxygen Delivery Room Air Nasal Cannula Oxygen Flow Rate 2 10/28/24 12:00 10/28/24 12:00 10/28/24 14:00 Temperature 97.6 F Pulse Rate 97 96 92 Respiratory Rate 20 Blood Pressure 132/75 Pulse Oximetry 97 Oxygen Delivery Oxygen Flow Rate 10/28/24 16:00 10/28/24 16:00 10/28/24 16:00 Temperature 98.1 F Pulse Rate 89 88 Respiratory Rate 20 Blood Pressure 105/58 L Pulse Oximetry 100 97 Oxygen Delivery Nasal Cannula Oxygen Flow Rate 2 10/28/24 18:00 10/28/24 19:35 10/28/24 20:00 Temperature 98.1 F Pulse Rate 95 99 97 Respiratory Rate 16 16 Blood Pressure 127/55 L Pulse Oximetry 96 96 Oxygen Delivery Nasal Cannula Oxygen Flow Rate 2 10/28/24 20:00 10/28/24 20:23 10/28/24 22:00 Temperature Pulse Rate 107 H 99 87 Respiratory Rate Blood Pressure Pulse Oximetry Oxygen Delivery Oxygen Flow Rate 10/28/24 23:18 10/29/24 00:00 10/29/24 00:00 Temperature 97.7 F Pulse Rate 86 82 82 Respiratory Rate 17 16 Blood Pressure 128/71 Pulse Oximetry 93 96 Oxygen Delivery Nasal Cannula Oxygen Flow Rate 2 10/29/24 02:00 10/29/24 03:19 10/29/24 04:00 Temperature 98.0 F Pulse Rate 87 86 85 Respiratory Rate 17 16 Blood Pressure 135/73 Pulse Oximetry 96 96 Oxygen Delivery Nasal Cannula Oxygen Flow Rate 2 10/29/24 04:00 10/29/24 06:00 Temperature Pulse Rate 89 82 Respiratory Rate Blood Pressure Pulse Oximetry Oxygen Delivery Oxygen Flow Rate Intake/Output Intake/Output: Intake & Output 10/26/24 10/27/24 10/28/24 10/29/24 23:59 23:59 23:59 23:59 Intake Total 1166.8 833.2 Output Total 600 450 Balance 566.8 383.2 Meds/Results Medications: Active Medications Generic Name Dose Route Start Last Admin Trade Name Freq PRN Reason Stop Dose Admin Hydrocodone Bitart/Acetaminophen 1 tab 10/28/24 12:41 Hydrocodone/Acetaminophen (*Crx) 5-325 Mg Tablet PO Q8H PRN pain 1-6 Lipase/Protease/Amylase 2 cap 10/28/24 17:00 10/28/24 16:04 Lipase/Amylase/Protease 12,000 Units Cap PO 2 cap TIDWM LELE Administration Atorvastatin Calcium 40 mg 10/28/24 21:00 10/28/24 20:23 Atorvastatin 40 Mg Tablet PO 40 mg HS LELE Administration Clopidogrel Bisulfate 75 mg 10/29/24 09:00 Clopidogrel Bisulfate 75 Mg Tablet PO DAILY LELE Dextrose 12.5 gm 10/28/24 12:43 Dextrose 50% 25 Gm/50 Ml Syringe IV PUSH PRN PRN Hypoglycemia Protocol Duloxetine HCl 30 mg 10/28/24 17:00 10/28/24 16:03 Duloxetine Hcl 30 Mg Capsule.Dr PO 30 mg BID LELE Administration Gabapentin 600 mg 10/28/24 13:00 10/28/24 16:03 Gabapentin 300 Mg Capsule PO 600 mg TID LELE Administration Glucagon 1 mg 10/28/24 12:43 Glucagon For Inj 1 Mg Vial IM PRN PRN Hypoglycemia Protocol Glucose 15 gm 10/28/24 12:43 Glucose Oral Gel 15 Gm Of Glucse In 37.5 Gm Tube PO PRN PRN Hypoglycemia Protocol Dextrose 1,000 mls @ 100 mls/hr 10/28/24 12:43 Dextrose 5% 1,000 Ml IVPB PRN PRN Hypoglycemia Protocol Lactated Ringer's 1,000 mls @ 125 mls/hr 10/28/24 13:25 10/29/24 03:33 Lr - Lactated Ringers Iv IV CONT 125 mls/hr .Q8H [facility] Administration Insulin Aspart 3 - 6 units 10/28/24 17:00 10/28/24 16:24 Insulin Aspart (*Bkc) 100 Units/Ml SUB-Q Not Given TIDWM [facility] Protocol Metoprolol Succinate 50 mg 10/28/24 21:00 10/28/24 20:23 Metoprolol Succinate Ext Rel 50 Mg Tabcr PO 50 mg Q12HR LELE Administration Morphine Sulfate 2 mg 10/28/24 04:13 10/29/24 03:33 Morphine Sulfate (*Crx) 2 Mg/Ml Inj IV PUSH 2 mg Q2H PRN Administration Pain Rated 7-10 Ondansetron HCl 4 mg 10/28/24 04:13 10/28/24 18:33 Ondansetron Inj 4 Mg/2 Ml Vial IV PUSH 4 mg Q4H PRN Administration Nausea Ondansetron HCl 4 mg 10/28/24 12:41 Ondansetron Hcl Odt 4 Mg Tablet PO Q8H PRN nausea and vomiting Tamsulosin HCl 0.4 mg 10/29/24 09:00 Tamsulosin Hcl 0.4 Mg Capsule PO DAILY [facility] Radiology Results: ITS Impressions Chest X-Ray 10/28/24 05:15 Impression: Questionable minimal bibasilar pulmonary edema. Abdomen/Pelvis CT 10/28/24 05:30 Impression: Suspected minimal acute pancreatitis. Pancreatic calcifications suggest underlying chronic pancreatitis. Small bilateral nonobstructing renal stones, as above. 3.3 cm right ovarian cyst. Labs Labs: Laboratory Results - last 24 hr 10/28/24 10/28/24 10/28/24 08:27 16:05 21:04 WBC 8.5 RBC 4.45 Hgb 12.5 Hct 40.1 MCV 90.1 D MCH 28.1 MCHC 31.2 L RDW 14.6 H Plt Count 183 MPV 10.8 H POC Capillary Glucose 110 H 142 H 10/29/24 05:49 WBC RBC Hgb Hct MCV MCH MCHC RDW Plt Count MPV POC Capillary Glucose 139 H Quality VTE Prophylaxis VTE prophylaxis: pharmacologic ordered
[2024-10-29 07:58] LABS: Glucose Point of Care 134 mg/dl (65-105)
[2024-10-29] MEDS: CLOPIDOGREL BISULFATE 75 MG TABLET PO (09:15)
[2024-10-29] MEDS: DULoxetine HCL 30 MG CAPSULE.DR PO ×2 (09:15→16:25)
[2024-10-29] MEDS: LIPASE/AMYLASE/PROTEASE 12,000 UNITS CAP 2 CAP PO ×3 (09:15→16:25)
[2024-10-29] MEDS: TAMSULOSIN HCL 0.4 MG CAPSULE PO (09:16)
[2024-10-29] MEDS: METOPROLOL SUCCINATE EXT REL 50 MG TABCR PO ×2 (09:16→20:43)
[2024-10-29] MEDS: GABAPENTIN 300 MG CAPSULE 600 MG PO ×3 (09:16→16:25)
[2024-10-29 09:19] LABS: Alanine Aminotransferase 36 U/L (6-35); Albumin Level 3.6 g/dL (3.5-5.1); Alkaline Phosphatase 83 U/L (38-126); Anion Gap 8 mmol/L (4-12); Aspartate Amino Transferase 51 U/L (14-36); Bilirubin,Total 0.4 mg/dL (0.2-1.3); Blood Urea Nitrogen 15 mg/dL (7-17); Calcium 8.5 mg/dL (8.4-10.2); Carbon Dioxide 27 mmol/L (22-30); Chloride 101 mmol/L (98-107); Estimated Glomerular Filt Rate > 60; Glucose 132 mg/dL (65-110); Potassium 4.3 mmol/L (3.4-5.0); Sodium 136 mmol/L (137-145); Total Protein 7.6 g/dL (6.3-8.2)
--- NOTE | 2024-10-29 10:01 | PCRCNOTE ---
Spoke with patient during 02 rounds. States she wore 02 1L NC last night due to BRANDIE. Per patient, she had sleep study done at [facility] (about a year ago)ordered by pulmonary consultants at . Patient needs CPAP machine ordered. Suggested she called pulmonary consultants to follow up.
[2024-10-29 11:40] LABS: Glucose Point of Care 146 mg/dl (65-105)
[2024-10-29] MEDS: HYDROcodone/acetaminophen (*CRX) 5-325 MG TABLET 1 TAB PO (12:01)
--- NOTE | 2024-10-29 18:54 | WPDGIPROGNO ---
Progress Note: A&P Assessment and Plan (1) Acute pancreatitis: Code(s): K85.90 - Acute pancreatitis without necrosis or infection, unspecified Status: Acute (2) Choledocholithiasis: Code(s): K80.50 - Calculus of bile duct without cholangitis or cholecystitis without obstruction Status: Acute Assessment and Plan: MRCP today revealed a filling defect in the distal common bile duct consistent with a stone. This explains her recurrent acute pancreatitis episodes. Therefore, will schedule ERCP for tomorrow. Consent and NPO after midnight indicated. In addition, there is evidence of chronic pancreatitis according to CT scan findings. Once the common bile duct is cleared, will refer to a specialized, tertiary care center for a closer evaluation of this chronic component. Subjective Date/time seen: 10/29/24 18:54 Interval history: The patient is currently asymptomatic, tolerating oral feedings and having no abdominal pain. Review of Systems Review of Systems: All systems reviewed & are unremarkable except as noted in HPI and below Exam Const: General: cooperative, healthy appearing and overweight; No in distress Nutritional Appearance: overweight Orientation/consciousness: oriented to person HENMT: Head: normal to inspection Resp: Effort & Inspection: no respiratory distress Auscultation: no rhonchi and no wheezes Cardio: Rate: regular rate Rhythm: regular rhythm GI: Inspection: normal to inspection Auscultation: normal bowel sounds Neuro: General: oriented to person Objective Data Vital Signs Vital Signs: Vital Signs - 24 hr 10/28/24 19:35 10/28/24 20:00 10/28/24 20:00 Temperature 98.1 F Pulse Rate 99 97 107 H Respiratory Rate 16 16 Blood Pressure 127/55 L Pulse Oximetry 96 96 Oxygen Delivery Nasal Cannula Oxygen Flow Rate 2 10/28/24 20:23 10/28/24 22:00 10/28/24 23:18 Temperature 97.7 F Pulse Rate 99 87 86 Respiratory Rate 17 Blood Pressure 128/71 Pulse Oximetry 93 Oxygen Delivery Oxygen Flow Rate 10/29/24 00:00 10/29/24 00:00 10/29/24 02:00 Temperature Pulse Rate 82 82 87 Respiratory Rate 16 Blood Pressure Pulse Oximetry 96 Oxygen Delivery Nasal Cannula Oxygen Flow Rate 2 10/29/24 03:19 10/29/24 04:00 10/29/24 04:00 Temperature 98.0 F Pulse Rate 86 85 89 Respiratory Rate 17 16 Blood Pressure 135/73 Pulse Oximetry 96 96 Oxygen Delivery Nasal Cannula Oxygen Flow Rate 2 10/29/24 06:00 10/29/24 08:00 10/29/24 08:00 Temperature 98.5 F Pulse Rate 82 82 Respiratory Rate 16 Blood Pressure 119/70 Pulse Oximetry 98 97 Oxygen Delivery Room Air Oxygen Flow Rate 10/29/24 08:00 10/29/24 09:16 10/29/24 10:00 Temperature Pulse Rate 98 85 79 Respiratory Rate Blood Pressure Pulse Oximetry 95 Oxygen Delivery Room Air Oxygen Flow Rate 10/29/24 10:00 10/29/24 12:00 10/29/24 12:00 Temperature 97.9 F Pulse Rate 94 82 Respiratory Rate 16 Blood Pressure 114/64 Pulse Oximetry 92 94 Oxygen Delivery Room Air Oxygen Flow Rate 10/29/24 12:00 10/29/24 14:00 10/29/24 16:00 Temperature 97.9 F Pulse Rate 83 87 81 Respiratory Rate 20 Blood Pressure 117/69 Pulse Oximetry 95 Oxygen Delivery Oxygen Flow Rate 10/29/24 16:00 10/29/24 16:00 10/29/24 18:00 Temperature Pulse Rate 83 87 Respiratory Rate Blood Pressure Pulse Oximetry Oxygen Delivery Room Air Oxygen Flow Rate Intake/Output Intake/Output: Intake & Output 10/26/24 10/27/24 10/28/24 10/29/24 23:59 23:59 23:59 23:59 Intake Total 1166.8 2073.2 Output Total 600 450 Balance 566.8 1623.2 Meds/Results Medications: Active Medications Generic Name Dose Route Start Last Admin Trade Name Freq PRN Reason Stop Dose Admin Hydrocodone Bitart/Acetaminophen 1 tab 10/28/24 12:41 10/29/24 12:01 Hydrocodone/Acetaminophen (*Crx) 5-325 Mg Tablet PO 1 tab Q8H PRN Administration pain 1-6 Lipase/Protease/Amylase 2 cap 10/28/24 17:00 10/29/24 16:25 Lipase/Amylase/Protease 12,000 Units Cap PO 2 cap TIDWM LELE Administration Atorvastatin Calcium 40 mg 10/28/24 21:00 10/28/24 20:23 Atorvastatin 40 Mg Tablet PO 40 mg HS LELE Administration Clopidogrel Bisulfate 75 mg 10/29/24 09:00 10/29/24 09:15 Clopidogrel Bisulfate 75 Mg Tablet PO 75 mg DAILY LELE Administration Dextrose 12.5 gm 10/28/24 12:43 Dextrose 50% 25 Gm/50 Ml Syringe IV PUSH PRN PRN Hypoglycemia Protocol Duloxetine HCl 30 mg 10/28/24 17:00 10/29/24 16:25 Duloxetine Hcl 30 Mg Capsule.Dr PO 30 mg BID LELE Administration Gabapentin 600 mg 10/28/24 13:00 10/29/24 16:25 Gabapentin 300 Mg Capsule PO 600 mg TID LELE Administration Glucagon 1 mg 10/28/24 12:43 Glucagon For Inj 1 Mg Vial IM PRN PRN Hypoglycemia Protocol Glucose 15 gm 10/28/24 12:43 Glucose Oral Gel 15 Gm Of Glucse In 37.5 Gm Tube PO PRN PRN Hypoglycemia Protocol Dextrose 1,000 mls @ 100 mls/hr 10/28/24 12:43 Dextrose 5% 1,000 Ml IVPB PRN PRN Hypoglycemia Protocol Lactated Ringer's 1,000 mls @ 125 mls/hr 10/28/24 13:25 10/29/24 12:01 Lr - Lactated Ringers Iv IV CONT 125 mls/hr .Q8H LELE Administration Indomethacin 100 mg 10/30/24 13:00 Indomethacin 50 Mg Supp.Rect RECTAL ONCE PRN 30 min pre procedure Insulin Aspart 3 - 6 units 10/28/24 17:00 10/29/24 17:21 Insulin Aspart (*Bkc) 100 Units/Ml SUB-Q Not Given TIDWM [facility] Protocol Metoprolol Succinate 50 mg 10/28/24 21:00 10/29/24 09:16 Metoprolol Succinate Ext Rel 50 Mg Tabcr PO 50 mg Q12HR LELE Administration Morphine Sulfate 2 mg 10/28/24 04:13 10/29/24 03:33 Morphine Sulfate (*Crx) 2 Mg/Ml Inj IV PUSH 2 mg Q2H PRN Administration Pain Rated 7-10 Ondansetron HCl 4 mg 10/28/24 04:13 10/28/24 18:33 Ondansetron Inj 4 Mg/2 Ml Vial IV PUSH 4 mg Q4H PRN Administration Nausea Ondansetron HCl 4 mg 10/28/24 12:41 Ondansetron Hcl Odt 4 Mg Tablet PO Q8H PRN nausea and vomiting Tamsulosin HCl 0.4 mg 10/29/24 09:00 10/29/24 09:16 Tamsulosin Hcl 0.4 Mg Capsule PO 0.4 mg DAILY LELE Administration Radiology Results: ITS Impressions Chest X-Ray 10/28/24 05:15 Impression: Questionable minimal bibasilar pulmonary edema. Abdomen/Pelvis CT 10/28/24 05:30 Impression: Suspected minimal acute pancreatitis. Pancreatic calcifications suggest underlying chronic pancreatitis. Small bilateral nonobstructing renal stones, as above. 3.3 cm right ovarian cyst. MRCP 10/29/24 16:15 IMPRESSION: Filling defect within the distal common bile duct consistent with choledocholithiasis. No additional filling defects are appreciated. Labs Labs: Laboratory Results - last 24 hr 10/28/24 10/29/24 10/29/24 21:04 05:49 07:55 WBC 8.5 RBC 4.45 Hgb 12.5 Hct 40.1 MCV 90.1 D MCH 28.1 MCHC 31.2 L RDW 14.6 H Plt Count 183 MPV 10.8 H Sodium Potassium Chloride Carbon Dioxide Anion Gap BUN Creatinine Estim Creat Clear Calc Estimated GFR Glucose POC Capillary Glucose 139 H 134 H Calcium Total Bilirubin AST ALT Alkaline Phosphatase Total Protein Albumin 10/29/24 10/29/24 08:24 11:29 WBC RBC Hgb Hct MCV MCH MCHC RDW Plt Count MPV Sodium 136 L Potassium 4.3 Chloride 101 Carbon Dioxide 27 Anion Gap 8 BUN 15 Creatinine 0.95 Estim Creat Clear Calc Not Reportable Estimated GFR > 60 Glucose 132 H POC Capillary Glucose 146 H Calcium 8.5 Total Bilirubin 0.4 AST 51 H ALT 36 H Alkaline Phosphatase 83 Total Protein 7.6 Albumin 3.6
[2024-10-29 20:03] LABS: Glucose Point of Care 202 mg/dl (65-105)
[2024-10-29] MEDS: ATORVASTATIN 40 MG TABLET PO (20:43)
--- NOTE | 2024-10-29 22:53 | PC.NURSE ---
Patient taking po fluids at this time. 1+ edema in lower extremities, face and hands puffy. Received order to hold IV fluids tonight.
[2024-10-30] VITALS (9 sets, daily range): BP systolic 135–149; BP diastolic 76–84; PULSE 82–101; RESP 17–20; TEMP 36.9–37.1; O2SAT 97–99
[2024-10-30 04:32] LABS: Hematocrit 36.9 % (37.0-47.0); Hemoglobin 11.9 g/dL (12.0-15.0); Mean Corpuscular HGB Conc 32.2 g/dl (32-36); Mean Corpuscular Hemoglobin 28.2 pg (26-34); Mean Corpuscular Volume 87.4 fl (80-100); Mean Platelet Volume 11.3 fl (7.4-10.4); Platelet Count Result 213 k/mm3 (150-375); Red Blood Count 4.22 M/mm3 (4.2-5.4); White Blood Count 7.2 K/mm3 (4.5-10.0)
[2024-10-30 04:52] LABS: Alanine Aminotransferase 30 U/L (6-35); Albumin Level 3.5 g/dL (3.5-5.1); Alkaline Phosphatase 84 U/L (38-126); Anion Gap 6 mmol/L (4-12); Aspartate Amino Transferase 44 U/L (14-36); Bilirubin,Total 0.3 mg/dL (0.2-1.3); Blood Urea Nitrogen 15 mg/dL (7-17); Calcium 8.5 mg/dL (8.4-10.2); Carbon Dioxide 28 mmol/L (22-30); Chloride 101 mmol/L (98-107); Estimated Glomerular Filt Rate > 60; Glucose 179 mg/dL (65-110); Potassium 4.2 mmol/L (3.4-5.0); Sodium 135 mmol/L (137-145); Total Protein 7.4 g/dL (6.3-8.2)
--- NOTE | 2024-10-30 06:54 | P.PNGI_ITS ---
Progress Note: A&P Assessment and Plan (1) Choledocholithiasis: Code(s): K80.50 - Calculus of bile duct without cholangitis or cholecystitis without obstruction Status: Acute Assessment and Plan: As discussed yesterday, the patient has an MRCP showing a distal common bile duct stone. she is currently taking Plavix, therefore an ERCP cannot be performed today. Patient instructed to stop Plavix and will contact her to schedule the procedure for next week. She can be discharged home today on a regular diet except for red meat. Subjective Date/time seen: 10/30/24 06:54 Interval history: no abdominal pain episodes. Objective Data Vital Signs Vital Signs: Vital Signs - 24 hr 10/29/24 08:00 10/29/24 08:00 10/29/24 08:00 Temperature 98.5 F Pulse Rate 82 98 Respiratory Rate 16 Blood Pressure 119/70 Pulse Oximetry 98 97 Oxygen Delivery Room Air 10/29/24 09:16 10/29/24 10:00 10/29/24 10:00 Temperature Pulse Rate 85 79 94 Respiratory Rate Blood Pressure Pulse Oximetry 95 Oxygen Delivery Room Air 10/29/24 12:00 10/29/24 12:00 10/29/24 12:00 Temperature 97.9 F Pulse Rate 82 83 Respiratory Rate 16 Blood Pressure 114/64 Pulse Oximetry 92 94 Oxygen Delivery Room Air 10/29/24 14:00 10/29/24 16:00 10/29/24 16:00 Temperature 97.9 F Pulse Rate 87 81 Respiratory Rate 20 Blood Pressure 117/69 Pulse Oximetry 95 Oxygen Delivery Room Air 10/29/24 16:00 10/29/24 18:00 10/29/24 19:41 Temperature Pulse Rate 83 87 Respiratory Rate Blood Pressure Pulse Oximetry Oxygen Delivery Room Air 10/29/24 20:00 10/29/24 20:00 10/29/24 20:43 Temperature 98.1 F Pulse Rate 87 88 82 Respiratory Rate 18 Blood Pressure 114/63 Pulse Oximetry 94 Oxygen Delivery 10/29/24 22:16 10/29/24 23:45 10/29/24 23:53 Temperature 97.7 F Pulse Rate 86 90 Respiratory Rate 17 Blood Pressure 129/72 Pulse Oximetry 91 Oxygen Delivery Room Air 10/30/24 00:00 10/30/24 02:00 10/30/24 03:34 Temperature 98.7 F Pulse Rate 86 88 101 H Respiratory Rate 17 Blood Pressure 135/76 Pulse Oximetry 99 Oxygen Delivery 10/30/24 04:00 10/30/24 04:00 10/30/24 06:00 Temperature Pulse Rate 84 86 Respiratory Rate Blood Pressure Pulse Oximetry Oxygen Delivery Room Air Intake/Output Intake/Output: Intake & Output 10/27/24 10/28/24 10/29/24 10/30/24 23:59 23:59 23:59 23:59 Intake Total 1166.8 2073.2 Output Total 600 850 Balance 566.8 1223.2 Meds/Results Medications: Active Medications Generic Name Dose Route Start Last Admin Trade Name Freq PRN Reason Stop Dose Admin Hydrocodone Bitart/Acetaminophen 1 tab 10/28/24 12:41 10/29/24 12:01 Hydrocodone/Acetaminophen (*Crx) 5-325 Mg Tablet PO 1 tab Q8H PRN Administration pain 1-6 Lipase/Protease/Amylase 2 cap 10/28/24 17:00 10/29/24 16:25 Lipase/Amylase/Protease 12,000 Units Cap PO 2 cap TIDWM LELE Administration Atorvastatin Calcium 40 mg 10/28/24 21:00 10/29/24 20:43 Atorvastatin 40 Mg Tablet PO 40 mg HS ELLE Administration Clopidogrel Bisulfate 75 mg 10/29/24 09:00 10/29/24 09:15 Clopidogrel Bisulfate 75 Mg Tablet PO 75 mg DAILY LELE Administration Dextrose 12.5 gm 10/28/24 12:43 Dextrose 50% 25 Gm/50 Ml Syringe IV PUSH PRN PRN Hypoglycemia Protocol Duloxetine HCl 30 mg 10/28/24 17:00 10/29/24 16:25 Duloxetine Hcl 30 Mg Capsule.Dr PO 30 mg BID LELE Administration Gabapentin 600 mg 10/28/24 13:00 10/29/24 16:25 Gabapentin 300 Mg Capsule PO 600 mg TID LELE Administration Glucagon 1 mg 10/28/24 12:43 Glucagon For Inj 1 Mg Vial IM PRN PRN Hypoglycemia Protocol Glucose 15 gm 10/28/24 12:43 Glucose Oral Gel 15 Gm Of Glucse In 37.5 Gm Tube PO PRN PRN Hypoglycemia Protocol Dextrose 1,000 mls @ 100 mls/hr 10/28/24 12:43 Dextrose 5% 1,000 Ml IVPB PRN PRN Hypoglycemia Protocol Lactated Ringer's 1,000 mls @ 125 mls/hr 10/28/24 13:25 10/29/24 22:55 Lr - Lactated Ringers Iv IV CONT Not Given .Q8H LELE Indomethacin 100 mg 10/30/24 13:00 Indomethacin 50 Mg Supp.Rect RECTAL ONCE PRN 30 min pre procedure Insulin Aspart 3 - 6 units 10/28/24 17:00 10/29/24 17:21 Insulin Aspart (*Bkc) 100 Units/Ml SUB-Q Not Given TIDWM [facility] Protocol Metoprolol Succinate 50 mg 10/28/24 21:00 10/29/24 20:43 Metoprolol Succinate Ext Rel 50 Mg Tabcr PO 50 mg Q12HR [facility] Administration Morphine Sulfate 2 mg 10/28/24 04:13 10/29/24 03:33 Morphine Sulfate (*Crx) 2 Mg/Ml Inj IV PUSH 2 mg Q2H PRN Administration Pain Rated 7-10 Ondansetron HCl 4 mg 10/28/24 04:13 10/28/24 18:33 Ondansetron Inj 4 Mg/2 Ml Vial IV PUSH 4 mg Q4H PRN Administration Nausea Ondansetron HCl 4 mg 10/28/24 12:41 Ondansetron Hcl Odt 4 Mg Tablet PO Q8H PRN nausea and vomiting Tamsulosin HCl 0.4 mg 10/29/24 09:00 10/29/24 09:16 Tamsulosin Hcl 0.4 Mg Capsule PO 0.4 mg DAILY LELE Administration Radiology Results: ITS Impressions Chest X-Ray 10/28/24 05:15 Impression: Questionable minimal bibasilar pulmonary edema. Abdomen/Pelvis CT 10/28/24 05:30 Impression: Suspected minimal acute pancreatitis. Pancreatic calcifications suggest underlying chronic pancreatitis. Small bilateral nonobstructing renal stones, as above. 3.3 cm right ovarian cyst. MRCP 10/29/24 16:15 IMPRESSION: Filling defect within the distal common bile duct consistent with choledocholithiasis. No additional filling defects are appreciated. Labs Labs: Laboratory Results - last 24 hr 10/29/24 10/29/24 10/29/24 07:55 08:24 11:29 WBC RBC Hgb Hct MCV MCH MCHC RDW Plt Count MPV Sodium 136 L Potassium 4.3 Chloride 101 Carbon Dioxide 27 Anion Gap 8 BUN 15 Creatinine 0.95 Estim Creat Clear Calc Not Reportable Estimated GFR > 60 Glucose 132 H POC Capillary Glucose 134 H 146 H Calcium 8.5 Total Bilirubin 0.4 AST 51 H ALT 36 H Alkaline Phosphatase 83 Total Protein 7.6 Albumin 3.6 10/29/24 10/30/24 20:00 04:04 WBC 7.2 RBC 4.22 Hgb 11.9 L Hct 36.9 L MCV 87.4 MCH 28.2 MCHC 32.2 RDW 14.0 Plt Count 213 MPV 11.3 H Sodium 135 L Potassium 4.2 Chloride 101 Carbon Dioxide 28 Anion Gap 6 BUN 15 Creatinine 0.97 Estim Creat Clear Calc Not Reportable Estimated GFR > 60 Glucose 179 H POC Capillary Glucose 202 H Calcium 8.5 Total Bilirubin 0.3 AST 44 H ALT 30 Alkaline Phosphatase 84 Total Protein 7.4 Albumin 3.5
[2024-10-30 07:39] LABS: Glucose Point of Care 164 mg/dl (65-105)
[2024-10-30] MEDS: TAMSULOSIN HCL 0.4 MG CAPSULE PO (08:31)
[2024-10-30] MEDS: DULoxetine HCL 30 MG CAPSULE.DR PO (08:31)
[2024-10-30] MEDS: METOPROLOL SUCCINATE EXT REL 50 MG TABCR PO (08:31)
[2024-10-30] MEDS: LIPASE/AMYLASE/PROTEASE 12,000 UNITS CAP 2 CAP PO (08:31)
[2024-10-30] MEDS: GABAPENTIN 300 MG CAPSULE 600 MG PO (08:31)
[2024-10-30] MEDS: HYDROcodone/acetaminophen (*CRX) 5-325 MG TABLET 1 TAB PO (08:31)
[2024-10-30] MEDS: CLOPIDOGREL BISULFATE 75 MG TABLET PO (08:31)
--- NOTE | 2024-10-30 09:46 | PM.DS ---
DS: Admitting Diagnosis Discharge Date 10/30/24 Admitting Diagnosis Abd pain/ acute on chronic pancreatitis DS: Discharge Diagnosis Discharge Diagnosis (1) Multiple vessel coronary artery disease: Code(s): I25.10 - Atherosclerotic heart disease of [place] coronary artery without angina pectoris Status: Acute Assessment and Plan: continue patients home medications (2) Hypercholesterolemia: Code(s): E78.00 - Pure hypercholesterolemia, unspecified Status: Acute Assessment and Plan: continue patients home medications (3) Type 2 diabetes mellitus: Qualifiers: Diabetes mellitus long winder tender insulin use: without long winder tender use Diabetes mellitus complication status: with hyperglycemia Qualified Code(s): E11.65 - Type 2 diabetes mellitus with hyperglycemia Code(s): E11.9 - Type 2 diabetes mellitus without complications Status: Acute Assessment and Plan: accuchecks, ssi (4) Acute on chronic pancreatitis: Code(s): K85.90 - Acute pancreatitis without necrosis or infection, unspecified; K86.1 - Other chronic pancreatitis Status: Acute Assessment and Plan: MRCP positive for choledocholithiasis. plan for ERCP as outpatient Patient needs to stop plavix before surgery. she will call her coupon manifest clerk (5) Abdominal pain: Code(s): R10.9 - Unspecified abdominal pain Status: Acute Assessment and Plan: secondary to pancreatitis Plan Acute on chronic pancreatitis improving Pain management, Creon MRCP positive for choledocholithiasis. plan for ERCP as outpatient Patient needs to stop plavix before surgery. she will call her coupon manifest clerk GI team on board uncontrolled DM2 SSI and accu checks CAD S/P CABG statin, ASa, Plavix, metoprolol HLD Statin HTN KEY ATTENDANT meds morbid obesity Lifestyle modification HfREF EF30-35% in 2023 statin, ASa, Plavix, metoprolol Will continue to monitor DS: Summary Hospital Course Hospital Course: pt admitted with epigastric pains pt has history of pancreatitis in the past pt describes epigastric pains no nausea or vomiting no jaundice or dark stools pt denies drinking alcohol history of gallbladder stones with lithotripsy in the past possible retained gallstone pt has history of dm, cad with by pass pt denies any new medications hbaic is 9 sugars are 434 lfts 64,44, lipase 3057 gi recommends mrcp 10/29/24 Patient was seen examined at bedside. she still complaining of 5/10 sharp epigastric pain. Denies any chest pain, shortness off breath, nausea vomiting. GI team on board. 10/30/24 Patient was seen and examined at bedside. she is feeling better. her abd pain is better. denies any chest pain, SOB, N/V tolerated diet. Mrcp showed choledocholithiasis. plan to stop Plavix as outpatient and get ERCP. Status at Discharge Overall status at discharge: patient is progressing back to baseline Time Spent with Patient Time attestation: Total time spent providing and/or coordinating discharge services: Time spent: Greater than 30 minutes Exam Const: General: cooperative, healthy appearing and overweight; No in distress Nutritional Appearance: overweight Orientation/consciousness: oriented to person HENMT: Head: normal to inspection Resp: Effort & Inspection: no respiratory distress Auscultation: no rhonchi and no wheezes Cardio: Rate: regular rate Rhythm: regular rhythm GI: Inspection: normal to inspection Auscultation: normal bowel sounds Neuro: General: oriented to person DS: Data Data Completed and Pending Labs on day of discharge: Labs from last 24 hours 10/30/24 10/30/24 10/29/24 07:31 04:04 20:00 WBC 7.2 RBC 4.22 Hgb 11.9 L Hct 36.9 L MCV 87.4 MCH 28.2 MCHC 32.2 RDW 14.0 Plt Count 213 MPV 11.3 H Sodium 135 L Potassium 4.2 Chloride 101 Carbon Dioxide 28 Anion Gap 6 BUN 15 Creatinine 0.97 Estim Creat Clear Calc Not Reportable Estimated GFR > 60 Glucose 179 H POC Capillary Glucose 164 H 202 H Calcium 8.5 Total Bilirubin 0.3 AST 44 H ALT 30 Alkaline Phosphatase 84 Total Protein 7.4 Albumin 3.5 10/29/24 11:29 WBC RBC Hgb Hct MCV MCH MCHC RDW Plt Count MPV Sodium Potassium Chloride Carbon Dioxide Anion Gap BUN Creatinine Estim Creat Clear Calc Estimated GFR Glucose POC Capillary Glucose 146 H Calcium Total Bilirubin AST ALT Alkaline Phosphatase Total Protein Albumin Discharge Plan Discharge Attending physician on discharge: Bruce Sevilla Discharging Clinician: Bruce Sevilla Anticipated Discharge Date/Time: 10/30/24 09:52 Patient Disposition: Home Activity: as tolerated Diet: heart healthy Discharge Instructions: follow with PCP in one week follow with GI as outpatient Patient Instructions: Antibiotic Form, Clopidogrel (By mouth), Pancreatitis (DC) Patient Language: Cambodian Stand Alone Forms: General Discharge Information Follow-up/Referrals: Carlos Ballesteros MD [Physician] - Call for Appointment Discharge Medications: Continued Creon 12,000-38,000 -60,000 unit capsule,delayed release(DR/EC) 2 cap PO TIDWM Qty: 180 0RF gabapentin 600 mg tablet 600 mg PO TID atorvastatin 20 mg tablet 40 mg PO HS ergocalciferol (vitamin D2) 1,250 mcg (50,000 unit) capsule 50,000 unit PO WEEKLY Patient Comments: states she hasn't taken this medication for a couple of weeks. Rx Instructions: Takes on fridays ondansetron 4 mg tablet,disintegrating 4 mg PO Q8H PRN (Reason: nausea and vomiting) Qty: 10 0RF Patient Comments: unknown exact time taken yesterday hydrocodone-acetaminophen 5-325 mg tablet 1 tablet PO Q8H PRN (Reason: pain) Qty: 10 0RF Patient Comments: patient states she took pain meds before coming to hospital, unknown exact time. tamsulosin [Flomax] 0.4 mg capsule 0.4 mg PO DAILY Qty: 10 0RF clopidogrel 75 mg tablet 75 mg PO DAILY duloxetine 30 mg capsule,delayed release(DR/EC) 30 mg PO BID (DME) Guardian 4 Glucose Sensor Device MISCELLANEOUS (DME) Guardian 4 Transmitter Device MISCELLANEOUS furosemide 20 mg tablet 20 mg PO BID metformin 500 mg tablet 1,000 mg PO BID metoprolol succinate 50 mg tablet extended release 24 hr 50 mg PO Q12H Discontinued ibuprofen 400 mg tablet 400 mg PO Q6H PRN (Reason: pain) Qty: 14 0RF Patient Comments: patients states she isn't aware of exact time she last took medication Date of admission: 10/28/24 04:14 Primary Care Provider: Nathalia,Chayito Lui Admitting Provider: Gertrudis Farah Attending physician on admission: Burce Sevilla Condition: Stable Quality VTE Prophylaxis VTE prophylaxis: pharmacologic ordered
[2024-10-30 11:35] LABS: Glucose Point of Care 161 mg/dl (65-105)
--- NOTE | 2024-10-31 13:53 | PCCDE ---
DM educator courtesy call due to DM notification. Pt reports to doing well, denies questions. Has appt 11/05 for procedure and reports endo appt in [place], in near future,(exact date unknown at time of call)
== END 2024-10-30 12:45 | disposition home or self-care (01) ==
LOC: ANHED 10-28 03:40 → ANHIMU 10-28 04:30
PROVIDERS: Family Medicine; Internal Medicine Gastroenterology; Admitting Provider Internal Medicine; Emergency Provider Emergency Medicine; PCP Nurse Practitioner Family; Visit Provider Internal Medicine
DX: K85.90 Acute pancreatitis without necrosis or infection, unspecified (principal); K86.1 Other chronic pancreatitis; K80.50 Calculus of bile duct without cholangitis or cholecystitis without obstruction; E11.65 Type 2 diabetes mellitus with hyperglycemia; E11.40 Type 2 diabetes mellitus with diabetic neuropathy, unspecified; I25.10 Atherosclerotic heart disease of native coronary artery without angina pectoris; I11.0 Hypertensive heart disease with heart failure; I50.20 Unspecified systolic (congestive) heart failure; I25.2 Old myocardial infarction; E78.00 Pure hypercholesterolemia, unspecified; E78.1 Pure hyperglyceridemia; K21.9 Gastro-esophageal reflux disease without esophagitis; J45.909 Unspecified asthma, uncomplicated; K76.0 Fatty (change of) liver, not elsewhere classified; R16.0 Hepatomegaly, not elsewhere classified; E66.01 Morbid (severe) obesity due to excess calories; Z68.43 Body mass index [BMI] 50.0-59.9, adult; Z79.02 Long term (current) use of antithrombotics/antiplatelets; Z79.84 Long term (current) use of oral hypoglycemic drugs; Z79.899 Other long term (current) drug therapy; Z87.442 Personal history of urinary calculi; Z90.49 Acquired absence of other specified parts of digestive tract; Z95.5 Presence of coronary angioplasty implant and graft
CPT/HCPCS: 36415; 71046; 74177; 74183; 76376; 80053; 82948; 83690; 83880; 84484; 85025; 85027; 85610; 85730; 93005; 96361; 96374; 96375; 96376; 99285; A9270; A9577; G0378; G0379; J2270; J2405; J7030; J7120; Q9967

== ENCOUNTER 2024-11-05 00:36 | Day surgery (SDC) | payer OTHER, SELFPAY ==
[2024-10-31 11:48] VITALS: BMI 48.5
--- NOTE | 2024-10-31 12:38 | SUR.PREOP ---
Reviewed patient's chart including patient's cardiac history and recent Cardiac Catherization report. Discussed pt's history with Anesthesia. Please see anesthesia note.
[2024-11-05] VITALS (8 sets, daily range): BP systolic 127–157; BP diastolic 58–92; PULSE 80–96; RESP 15–20; TEMP 36.3–36.4; O2SAT 95–100
--- NOTE | ~2024-11-05 | XR_ITS ---
INTRAOPERATIVE FLUOROSCOPY: CLINICAL HISTORY: 39 years old Female; ERCP GALLBLADDER PROCEDURE COMMENTS: Limited intraoperative fluoroscopy of the right upper quadrant was performed. CUMULATIVE DOSE: 64.3 mGy FLUOROSCOPY TIME: 171 seconds FINDINGS/IMPRESSION: Please refer to operative note for further details. Reviewed, dictated and finalized at location A.
--- OUTSIDE RECORDS SUMMARY | 2024-11-05 00:39 | XMS_ITS | Clinical Summary ---
Author Organization [facility] Address [facility] [place] [address] Care Team Providers Care Seismic Plotter Name Role Phone Alissa Webster MD Primary Care Provider [phone] Allergies No known active allergies Medications insulin [...] less, will sometimes take 1 Active pancrelipase, [id number], (CREON) 16935 UNIT CAPSULE ENTERIC COATED PARTICLES Take 1 [...] on file Legal Sex Female 10:05 AM PROCESSING ANALYST Gender Identity Not on file Sexual Orientation Not on file Last Filed Vital Signs Vital Sign Reading Time Taken Comments Blood Pressure 138/90 05/29/2023 9:45 AM PROCESSING ANALYST Pulse 87 05/29/2023 9:45 AM PROCESSING ANALYST Temperature 36.7 C (98.1 F) 05/29/2023 9:45 AM PROCESSING ANALYST Respiratory Rate 16 05/29/2023 9:45 AM PROCESSING ANALYST Oxygen Saturation 97% 05/29/2023 9:45 AM PROCESSING ANALYST Inhaled Oxygen Concentration - - Weight 93.9 kg (207 lb 0.2 oz) 05/29/2023 6:10 A M PROCESSING ANALYST Height 151.1 cm (4' 11.5) 05/22/2023 11:[address] Body Mass Index 41.11 05/22/2023 11:48 AM PROCESSING ANALYST Plan of Treatment Health Maintenance Due Date [...] complete this topic Insurance [employer] Care Teams Seismic Plotter Relationship Specialty Start Date End Date Alissa Webster MD PCP - General INTERNAL MEDICINE 05/29/23
--- OUTSIDE RECORDS SUMMARY | 2024-11-05 00:39 | XMS_ITS | Encounter Summary ---
Author Organization [facility] Address [address] [place] [address] Phone Care Team Providers Care Health Information Systems Technician Name Role Phone Nathalia Chayito CHAVEZ CNP Primary Care Provider [phone] Broderick Perez MD Unavailable Albert Olivera MD Unavailable Reason for Visit * Reason Comments Medication Refill Encounter Details Date Type Department Care Team (Late Contact Info) Description 04/23/2024 [facility]ill [facility] [place] [id number] Albert Olivera MD [address] [place] [address] Medication Refill Social History Tobacco Use Types Packs/Day Years Used Date Smoking Tobacco: Never Smokeless Tobacco: Never Alcohol Use Standard Drinks/Week Comments Not Currently 0 (1 standard drink = 0.6 oz pur e alcohol) Sexually Active Control Partners Comments Yes Comments Unknown Sex and Gender Information Value Date Recorded Sex Assigned at Not on file Legal Sex Female 8:35 AM PUBLIC SAFETY DISPATCHER Gender Identity Not on file Sexual Orientation Not on file documented as of this encounter Plan of Treatment Upcoming Encounters Date Type Department Care Team (Late Contact Info) Description 12/30/2024 10:15 AM CDT Office Visit [facility] [address] [place] [phone] Albert Olivera MD [address] [place] [address] 01/31/2025 10:45 AM CDT Office Visit [facility] [address] [facility] [place] [phone] Marlon Schultz MD [address] [facility] [address] [place] [address] documented as of this encounter Visit Diagnoses Not on filedocumented in this encounter Care Teams Health Information Systems Technician Relationship Specialty Start Date End Date Chayito Sloan APRN, GREGORY 2 [address] [facility] [address] [place] [address] PCP - General Family Medicine 11/22/23 Broderick Perez MD [address] [facility] [address] [place] [address] Consulting Physician Endocrinology 01/02/24 Albert Olivera MD [address] [place] [address] Consulting Physician Neurology 01/23/24 documented as of this encounter
--- OUTSIDE RECORDS SUMMARY | 2024-11-05 00:39 | XMS_ITS ---
Author Organization [facility] Address [address] [place] [address] Care Team Providers Care Roping Tender Name Role Phone Darin SHAH, Alissa Primary Care Provider Unavail able MIQUEL PATROL SERGEANT SHERIFF'S OFFICE, JAYANT Unavailable Oliver SHAH, Lacho Unavailable Unavailable NANDO SHAH, BAILEY Unavailable REASON FOR VISIT ESWL Admit to Sandrine Encounters Encounter Location Date Provider Diagnosis [facility] - Op [address] [place], [place] [id number] 10/20/2023 BAILEY NANDO Plan Of Treatment No Information Progress Notes * Gem MORALES DDOB: [birth year] (39 yo F)Acc No.[id number]:10/20/2023 Patient: Maida DOMOKORINAGem Provider: Billy Collier MD, FASGE :1985 A ge:38 Y S ex:Female Date:10/20/2023 Address:[address], [facility] Pcp:Gemini Lincoln * * Electronic signature of EMILIANA COLLIER MD, MD on 11/05/2024 at 01:39 AM EDT Sign off status: Pending * Provider: Billy Collier MD, FASGE Date: 10/20/2023 Generated for Rebekahi ng/Michaelg/eTransmitting on: 11/05/2024 01:39 AM EDT
--- OUTSIDE RECORDS SUMMARY | 2024-11-05 00:39 | XMS_ITS ---
Author Organization [facility] Address [address] [place] [address] Care Team Providers Care Core Mounter Name Role Phone Darin SHAH, Alissa Primary Care Provider Unavail able MIQUEL RUBBER COMPOUNDER, JAYANT Unavailable Oliver SHAH, Lacho Unavailable Unavailable NANDO SHAH, BAILEY Unavailable [phone] REASON FOR VISIT ERCP w/stenting for ESWL on 10/20/23 Encounters Encounter Location Date Provider Diagnosis [facility] - Op [address] [place], [place] [id number] 10/18/2023 BAILEYDEJON COLLIER Plan Of Treatment No Information Progress Notes * Gem MORALES DDOB: [birth year] (39 yo F)Acc No.[id number]:10/18/2023 Patient: Maida HAIDERGem Provider: Billy Collier MD, FASGE :1985 A ge:38 Y S ex:Female Date:10/18/2023 Address:[address], [facility] Pcp:Gemini Lincoln * * Electronic signature of EMILIANA COLLIER MD, MD on 11/05/2024 at 01:39 AM EDT Sign off status: Pending * Provider: Billy Collier MD, FASGE Date: 0 10/18/2023 Generated for Anshu peck/Kay/eTransmitting on: 0 11/05/2024 01:39 AM EDT
--- OUTSIDE RECORDS SUMMARY | 2024-11-05 00:39 | XMS_ITS ---
Author Organization [facility] Address [address] [place] [address] Care Team Providers Care Computer Systems Information Director Name Role Phone Darin SHAH, Alissa Primary Care Provider Unavail able MIQUEL CERTIFIED LACTATION EDUCATOR, JAYANT Unavailable [phone] Oliver SHAH, Lacho Unavailable Unavailable NANDO SHAH, BAILEY Unavailable REASON FOR VISIT ERCP w/stone extraction Encounters Encounter Location Date Provider Diagnosis [facility] - Op [address] [place], [place] [id number] 10/20/2023 BAILEYDEJON COLLIER Plan Of Treatment No Information Progress Notes * Gem MORALES DDOB: [birth year] (39 yo F)Acc No.[id number]:10/20/2023 Patient: Maida HAIDER Gem Norton Provider: Billy Collier MD, FASGE :1985 A ge:38 Y S ex:Female Date:10/20/2023 Address:[address], [facility] Pcp:Gemini Lincoln * * Electronic signature of EMILIANA COLLIER MD, MD on 11/05/2024 at 01:38 AM EDT Sign off status: Pending * Provider: Billy Collier MD, FASGE Date: 0 10/20/2023 Generated for Printi ng/Faxing/eTransmitting on: 0 11/05/2024 01:38 AM EDT
--- OUTSIDE RECORDS SUMMARY | 2024-11-05 00:39 | XMS_ITS | Clinical Summary ---
Author Organization [facility] Address [address] [place] [address] Phone Care Team Providers Care Clinical Statistical Programmer Name Role Phone Chayito Sloan APRN, CNP Primary Care Provider [phone] Broderick Perez MD Unavailable Albert Olivera MD Unavailable [phone] Allergies Active Allergy Reactions Criticality Noted Date Comments Wound Dressing Adhesive Rash 05/20/2024 Medications ibuprofen (MOTRIN) 800 MG Tablet Take 800 mg by mouth every 6 hours as needed. Active atorvastatin (LIPITOR) 20 MG Tablet Take 20 mg by mouth daily. Active pancrelipase, lipase-protease -amylase, (Creon) [id number] Capsule DR Particles Take 1 Capsule by mouth 3 times daily (with meals). Active fenofibrate 160 MG Tablet Take 160 mg by mouth daily. Active gabapentin (NEURONTIN) 600 MG Tablet Take 600 mg by mouth 3 times daily. Active Continuous Glucose Sensor (Dexcom G7 Sensor) MiscIndications :Type 2 diabetes mellitus with diabetic polyneuropathy, with long-term current use of insulin (HCC) Every 10 days 9 Each 1 4 Active Continuous Glucose Bistro Attendant (Dexcom G7 Bistro Attendant) DeviceIndicatio ns:Type 2 diabetes mellitus with diabetic polyneuropathy, with long-term current use of insulin (HCC) Check blood sugar before each meal and at bedtime 1 Each 4 Active Glucose Blood (OneTouch Ultra) Strip 4 times a day 400 Each 3 4 Active Blood Glucose Monitoring Suppl (ONE TOUCH ULTRA 2) w/Device Kit Check blood glucose before each meal and at bedtime 1 Each 4 Active insulin glargine (Lantus SoloStar) 100 UNIT/ML Solution Pen-injector 40 Units by Subcutaneous route nightly. 30 mL 1 4 Active Additional Information Patient not taking.Reported on 08/02/2024 Insulin Lispro, 1 Unit Dial, (HumaLOG KwikPen) 100 UNIT/ML Solution Pen-injector 15 units before each meal; correctional factor insulin of 1:15 if >140 mg/dL, up to 70 units/day 60 mL 1 4 Active Insulin Pen Needle (Pen D Lo) 31G X 6 MM Misc 4 times a day 400 Each 3 4 Active Additional Information Patient not taking.Reported on 08/02/2024 Lancets Misc 4 times a day 400 Lancet . 3 4 Active Additional Information Patient not taking.Reported on 08/02/2024 Continuous Glucose Transmitter (Guardian 4 Transmitter) Misc USE with Guardian 4 Sensors TO monitor blood glucose as directed 5 Active DULoxetine (CYMBALTA) [address] Particles TAKE 1 CAPSULE BY MOUTH TWICE A DAY 60 Capsule 3 5 Active metFORMIN (GLUCOPHAGE) 500 MG Tablet TAKE 2 TABLETS BY MOUTH TWICE A DAY WITH MEALS 360 Tablet 5 Active Active Problems Problem Noted Date Diagnosed Date Type 2 diabetes mellitus wit h diabetic polyneuropathy, with long-term current use of insulin 01/10/2024 Encounters Date Type Department Care Team Description 08/11/2024 Refill [facility] - Endocr[facility]ology - [place] [address] [place] [address] Broderick Perez MD Medication Refill 08/09/2024 [facility] [place] [address] [place] [phone] Albert Olivera MD Medication Refill from Last 3 Months Immunizations Immunization Administration Dates Next Due Human Papillomavirus (HPV) Vaccine, Bivalent Human Papillomavirus Vaccine (HPV), quadrivalent 01/04/2007,11/03/2006 MMR Vaccine 04/27/1993 Pneumococcal conjugate PCV20 , polysaccharide ATL904 conjugate, adjuvant, PF 08/17/2021 TDAP Vaccine 11/03/2006 [...] on file Legal Sex Female 8:35 AM PERFORMANCE TEST CONSULTANT Gender Identity Not on file Sexual Orientation Not on file Last Filed Vital Signs Vital Sign Reading Time Taken Comments Blood Pressure 166/97 08/02/2024 2:53 PM CDT Pulse 99 08/02/2024 2:53 PM CDT Temperature 36.6 C (97.9 F) 05/20/2024 9:29 PM PERFORMANCE TEST CONSULTANT Respiratory Rate 14 08/02/2024 2:53 PM CDT Oxygen Saturation 99% 08/02/2024 2:53 PM CDT Inhaled Oxygen Concentration - - Weight 96.6 kg (213 lb) 08/02/2024 2:53 PM CDT Height 149.9 cm (4' 11) 05/20/2024 9:29 PM PERFORMANCE TEST CONSULTANT Body Mass Index 43.02 05/20/2024 9:29 PM PERFORMANCE TEST CONSULTANT Plan of Treatment Upcoming Encounters Date Type Department Care Team (Late st Contact Info) Description 12/30/2024 10:15 AM CDT Office Visit [facility] - Neurology [facility] [address] [place] [address] Albert Olivera MD [address] [place] [address] 01/31/2025 10:45 AM CDT Office Visit [facility] [address] [place] [address] Marlon Schultz MD [address] [address] Health Maintenance Due Date Last Done Comments Diabetes: Eye Exam 1985 Hepatitis C Virus (HCV) Screening 1985 Mammogram 1985 Hepatitis B Immunization (1 of 3 - 19+ 3-dose series) 01/22/2003 Pap Smear 01/22/2005 Cervical Cancer Screening (CCS) 01/22/2014 HPV/Cotest 01/22/2014 Td Immunization Every 10 Yea rs (Adults With 1 Tdap) 06/22/2023 06/22/2013, 11/03/2006 SARS-COV-2 Immunization ( season) 2024 08/17/2021, 07/20/2021 Discussion re Starting/Frequency of Mammograms 2024 Diabetes: Hemoglobin A1c 10/18/2024 024, 01/10/2024, 10/04/2023 Influenza Immunization (Seas on Ended) 2025 Diabetes: Foot Exam 01/09/2025 01/10/2024 Diabetes: Nephropathy Screening 05/20/2025 05/20/2024, 01/22/2024 Respiratory Syncytial Virus (RSV) Immunization (Adult) (1 - 1-dose 75+ series) 01/22/2059 TdaP Immunization Discontinued 11/03/2006 Human Papillomavirus (HPV) Immunization Completed 05/04/2007, 01/04/2007, 11/03/2006 DTaP/Tdap/Td Immunization Discontinued 2013, 11/03/2006 Pneumococcal Immunization Combined Completed 08/17/2021 Meningococcal Immunization (ACWY) Aged Out No longer eligible based on patient's age to complete this topic Rotavirus Immunization Aged Out No lo nger eligible based on patient's age to complete this topic Procedures Procedure Name Priority Date/Time Associated Diagnosis Comments CMP (COMPREHENSIVE METABOLIC PANEL) STAT 05/20/2024 9:44 PM PERFORMANCE TEST CONSULTANT POCT GLYCOSYLATED HEMOGLOBIN Routine 01/10/2024 10:34 AM CDT Type 2 diabetes mellitus with diabetic polyneuropathy, with long-term current use of insulin (HCC) from Last 3 Months or Most Recently Relevant to Health Maintenance Results * (ABNORMAL) CMP (Comprehensive Metabolic Panel) (05/20/2024 9:44 PM [facility]) SODIUM 139 136 - 145 mmol/L 05/20/2024 10:[address] [facility] POTASSIUM 4.6 3.5 - 5.1 mmol/L 05/20/2024 10:[address] [facility] CHLORIDE 105 98 - 107 mmol/L 05/20/2024 10:[address] [facility] CO2, VENOUS 22 22 - 30 mmol/L 05/20/2024 10:[address] [facility] ANION GAP 16.6 <18.0 mmol/L 05/20/2024 10:[address] [facility] GLUCOSE 175(H) 70 - 99 mg/dL 05/20/2024 10:[address] [facility] BUN 11 5 - 18 mg/dL 05/20/2024 10:[address] [facility] CREATININE, BLOOD 0.95 0.60 - 1.00 mg/dL 05/20/2024 10:[address] [facility] BUN/CREATININE RATIO 12 12 - 20 ratio 05/20/2024 10:[address] [facility] TOTAL PROTEIN 8.1 6.3 - 8.2 g/dL 05/20/2024 10:[address] [facility] ALBUMIN 3.6 3.5 - 5.0 g/dL 05/20/2024 10:[address] [facility] A/G RATIO 0.8(L) 1.0 - 2.2 05/20/2024 10:[address] [facility] CALCIUM 9.2 8.7 - 10.5 mg/dL 05/20/2024 10:[address] [facility] T BILI 0.2 0.2 - 1.2 mg/dL 05/20/2024 10:[address] [facility] SGOT (AST) 48(H) 5 - 34 U/L 05/20/2024 10:34 PM PERFORMANCE TEST CONSULTANT [facility] SGPT (ALT) 38 0 - 55 U/L 05/20/2024 10:34 PM PERFORMANCE TEST CONSULTANT [facility] ALKALINE PHOSPHATASE 94 40 - 150 U/L 05/20/2024 10:34 PM PERFORMANCE TEST CONSULTANT [facility] GFR, ESTIMATED >60 >=60 05/20/2024 10:34 PM PERFORMANCE TEST CONSULTANT [facility] Comment: Creatinine Clearance is the preferred criteria for selecting drug dose adjustments in renally impaired patients. The GFR is provided as additional pertinent clinical information. GFR is reported in mL/min/1.73 sq m. Calculation based on the Chronic Kidney Disease Epidemiology Collaboration (CKD- EPI) equation refit without adjustment for race. GFR, EST. >60 >=60 025 10:34 PM PERFORMANCE TEST CONSULTANT [facility] GFR, EST. NONAFRICAN >60 >=60 05/20/2024 10:34 PM PERFORMANCE TEST CONSULTANT [facility] Blood Venipuncture / Unknown 05/20/2024 9:44 PM PERFORMANCE TEST CONSULTANT 05/20/2024 10:03 PM PERFORMANCE TEST CONSULTANT us Donte Palomares DO CHEMISTRY ORDERABLES Fi nal Result [facility] [address] [place] [address] * (ABNORMAL) POCT GLYCOSYLATED HEMOGLOBIN (01/10/2024 10:34 AM CDT) HGB-A1C 10.1(A) 4 - 6 % Blood 01/10/2024 10:3 4 AM CDT us Broderick Perez MD POINT OF CARE TESTING (MANUAL) F inal Result from Last 3 Months or Most Recently Relevant to Health Maintenance Insurance MEDICAID [place] Care Teams Clinical Statistical Programmer Relationship Specialty Start Date End Date Sloan, SCOTT Stratton, MANAGER LIGHTING [address] [place], [place] [phone] PCP - General Family Medicine 11/22/23 Broderick Perez MD [address] [phone] Consulting Physician Endocrinology 01/02/24 Albert Olivera MD [address] [place] [phone] Consulting Physician Neurology 01/23/24
--- OUTSIDE RECORDS SUMMARY | 2024-11-05 00:39 | XMS_ITS | Patient Health Record ---
Author Organization [facility] Address [address] [place] [address] Care Team Providers Care Commercial Center Manager Name Role Phone Darin SHAH, Alissa Primary Care Provider Unavail able MIQUEL FIRER MARINE, JAYANT Unavailable Oliver SHAH, Lacho Olson Unavailable Allergies No Known Allergies Reason For Referral No Information Medications Medication SIG (Take, Route, Frequency, Duration) Notes Start Date End Date Status Lantus 40units at [facility] Activ e Creon [id number] UNIT as directed Orall y Take 2 with meals. Max 6/day for 30 days Active HumaLOG Active Gabapentin 600 MG 1 tablet Orally thre e times a day Active Problems Problem Type SNOMED Code ICD Code Onset Dates Problem Status W/U Status Risk Notes Problem Other chronic pancreatitis (K86.1) Active confirmed Plan Of Treatment Pending Test Test Name Order Date Endoscopic Retrograde Cholangiopancreato graphy (ERCP) 05/11/2023 Endoscopic Retrograde Cholangiopancreato graphy (ERCP) 09/22/2023 Insurance Providers Payer Name Payer Address Payer Phone Subscriber Number Group Number Insured Name Patient Relationship to Insured Coverage Start Date Coverage End Date [address] [id number] Gem Morales Self - patient is the insured Medical (General) History Medical History History ICD Code diabetes mellitus anxiety kidney stones Surgical History Surgery Date(Month/Year) tonsillectomy toe amputation cholecystectomy
[2024-11-05 12:57] LABS: BEDSIDEPREGUCG Negative (Negative)
[2024-11-05] MEDS: SIMETHICONE ORAL SUSPENSION 20 MG/0.3 ML 30 ML BOTTLE 1.8 ML PO (13:02)
[2024-11-05] MEDS: INDOMETHACIN 50 MG SUPP.RECT 100 MG RECTAL (13:02)
[2024-11-05] MEDS: LACTATED RINGERS 1,000 ML 150 ML IV CONT (13:09)
--- NOTE | 2024-11-05 13:21 | WPDANESEPPF ---
Anes - Initial Pre Proc Eval Procedure: Operation Date: 11/05/24 13:30 Proposed Procedures p Endoscopic Retro Cholangiopancreatogram - Carlos Ballesteros MD Date/Time: 11/05/24 13:21 Surgeon: Carlos Ballesteros MD Pre Op Diagnosis: Obstructing CBD stone Patient Data Age: 39 Gender: F Height: 1.5 m Weight: 111.8 kg Last Vital Signs Temp 36.4 C L 11/05/24 12:52 Pulse 96 11/05/24 12:52 Resp 18 11/05/24 12:52 BP 138/92 H 11/05/24 12:52 Pulse Ox 98 11/05/24 12:52 O2 Del Method Room Air 11/05/24 12:52 Allergies Allergy/AdvReac Type Severity Reaction Status Date / Time adhesive tape AdvReac Itching Verified 11/05/24 12:42 Home Medications ?Medication ?Instructions ?Recorded ?Confirmed ?Type gabapentin 600 mg tablet 600 mg PO TID 03/11/21 10/31/24 History atorvastatin 20 mg tablet 40 mg PO HS 12/19/22 10/31/24 History ergocalciferol (vitamin D2) 1,250 50,000 unit PO WEEKLY 12/19/22 10/31/24 History mcg (50,000 unit) capsule wuywye-fquchrgw-mguaogo 2 cap PO TIDWM #180 caps 04/11/23 10/31/24 Rx 12,000-38,000-60,000 unit capsule,delayed rel (Creon) ondansetron 4 mg disintegrating 4 mg PO Q8H PRN nausea and 09/30/23 10/31/24 Rx tablet vomiting #10 tabs tamsulosin 0.4 mg capsule (Flomax) 0.4 mg PO DAILY #10 caps 09/30/23 10/31/24 Rx blood-glucose sensor (Guardian 4 10/28/24 10/28/24 History Glucose Sensor device) blood-glucose transmitter 10/28/24 10/28/24 History (Guardian 4 Transmitter device) clopidogrel 75 mg tablet 75 mg PO DAILY 10/28/24 11/05/24 History duloxetine 30 mg capsule,delayed 30 mg PO BID 10/28/24 10/31/24 History release furosemide 20 mg tablet 20 mg PO BID 10/28/24 10/31/24 History metformin 500 mg tablet 1,000 mg PO BID 10/28/24 10/31/24 History metoprolol succinate 50 mg 50 mg PO Q12H 10/28/24 11/05/24 History tablet,extended release 24 hr hydrocodone 5 mg-acetaminophen 325 1 tablet PO Q8H PRN pain 1-6 #12 10/30/24 10/31/24 Rx mg tablet tabs Laboratory Tests 11/05/24 11/05/24 12:35 12:56 POC Capillary Glucose 208 H mg/dl (65-105) POC Urine HCG, Qual Negative (Negative) Patient hx anesthesia problems: none Family hx anesthesia problems: none Results Review: All pre-operative results and documents have been reviewed as part of the pre-operative evaluation. [facility]LY [facility], [facility] Past Medical History Medical History Non-ST elevation [place] (NSTEMI) Pneumonia 2023 Chronic pancreatitis Hypertriglyceridemia Dyslipidemia Gastroesophageal reflux disease Insulin dependent type 2 diabetes mellitus Poorly controlled with last A1c of 10.3 in 2022 Hepatic steatosis With hepatomegaly Kidney stones Diabetic neuropathy Osteomyelitis of ankle or foot, left, acute (2020) Psoriasis Asthma Hypertension Surgical History Surgical History History of laparoscopic cholecystectomy (06/20/22) 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 Surrogate medical decision maker: Carlee River, mother. Code status: Full code. Smoking status: Current some day smoker Tobacco type: e-cigarettes/vaping Alcohol intake: never Alcohol use details: Rare alcohol use. Substance use: current Substance use type: marijuana Other substance usage details: vape used for pain Last use: August 2024 Do You Feel Safe in your Home?: Yes Lack of Transportation: No Lack of Food: Never True Current Housing: I Have Housing Concerned About Future Housing: No Difficulty Paying Gas/Electric Bills: No Difficulty Paying for Meds: No Currently Unemployed: No Education: Decline to Answer Difficulty w/ Childcare or Family Care: No Living arrangements: alone Additional living arrangements comments: Lives in [place] with mother and significant other. Two children at home. Occupation/Education: unemployed Additional occupation/education comments: Applying for disability Spiritual care concerns: No Anes - Eval Final PreProcedure Day of Procedure 11/05/24 13:21 Patient weight: morbidly obese Heart: regular rate and rhythm Lungs: clear to auscultation Airway: Mallampati scale class III and special considerations poor dentition (chipped front teeth) Neurological: alert and oriented Last oral intake: >/= 8 hours ASA classification: IV Emergent: no Anesthetic plan: proceed Anesthesia type and monitoring: general ETT and standard monitoring Results Review: All pre-operative results and documents have been reviewed as part of the pre-operative evaluation. Informed Consent: The patient's anesthetic plan and its attendant risks and benefits were discussed with the patient/family/POA. Questions were solicited and answers provided to the satisfaction of the patient/family/POA.
[2024-11-05] MEDS: FAMOTIDINE 20 MG/2 ML VIAL IV PUSH (13:54)
[2024-11-05] MEDS: ONDANSETRON INJ 4 MG/2 ML VIAL IV PUSH (13:54)
--- NOTE | 2024-11-05 14:03 | SUR.PREOP ---
1345 Pt states she has nausea and abdominal pain after Indomethacin suppository was given. Dr. Somers(anesthesiologist) notified, new orders received for Zofran and Pepcid IV.
--- NOTE | 2024-11-05 14:52 | PM.IMHP ---
H&P: HPI History of Present Illness Date/Time: 11/05/24 14:52 Chief Complaint: possible choledocholithiasis Narrative: this patient was recently admitted for an episode of acute pancreatitis. She has a history of biliary pancreatitis, treated 2 years ago at another institution, after she underwent ERCP and stone extraction. According to her, stone extraction was incomplete and she was left with a biliary stent which was subsequently removed prior to her coronary artery bypass graft which was 1 year ago. She did well and had a 2nd episode of pancreatitis for which she was admitted to our hospital a week ago. An ERCP could not be done at that time because she was receiving Plavix. Therefore she is here today for ERCP after discontinuing Plavix for 7 days. He has not had any further abdominal pain or episodes of pancreatitis. Review of Systems Review of Systems: All systems reviewed & are unremarkable except as noted in HPI and below PMFSH Past Medical History Medical History Non-ST elevation ND (NSTEMI) Pneumonia 2023 Chronic pancreatitis Hypertriglyceridemia Dyslipidemia Gastroesophageal reflux disease Insulin dependent type 2 diabetes mellitus Poorly controlled with last A1c of 10.3 in 2022 Hepatic steatosis With hepatomegaly Kidney stones Diabetic neuropathy Osteomyelitis of ankle or foot, left, acute (2020) Psoriasis Asthma Hypertension Surgical History Surgical History History of laparoscopic cholecystectomy (06/20/22) 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 Surrogate medical decision maker: Carlee River, mother. Code status: Full code. Smoking status: Current some day smoker Tobacco type: e-cigarettes/vaping Alcohol intake: never Alcohol use details: Rare alcohol use. Substance use: current Substance use type: marijuana Other substance usage details: vape used for pain Last use: August 2024 Do You Feel Safe in your Home?: Yes Lack of Transportation: No Lack of Food: Never True Current Housing: I Have Housing Concerned About Future Housing: No Difficulty Paying Gas/Electric Bills: No Difficulty Paying for Meds: No Currently Unemployed: No Education: Decline to Answer Difficulty w/ Childcare or Family Care: No Living arrangements: alone Additional living arrangements comments: Lives in [place] with mother and significant other. Two children at home. Occupation/Education: unemployed Additional occupation/education comments: Applying for disability Spiritual care concerns: No Meds Home Medications and Allergies Home Medications ?Medication ?Instructions ?Recorded ?Confirmed ?Type gabapentin 600 mg tablet 600 mg PO TID 03/11/21 10/31/24 History atorvastatin 20 mg tablet 40 mg PO HS 12/19/22 10/31/24 History ergocalciferol (vitamin D2) 1,250 50,000 unit PO WEEKLY 12/19/22 10/31/24 History mcg (50,000 unit) capsule [id number]-[id number]-[id number] 2 cap PO TIDWM #180 caps 04/11/23 10/31/24 Rx 12,000-38,000-60,000 unit capsule,delayed rel (Creon) ondansetron 4 mg disintegrating 4 mg PO Q8H PRN nausea and 09/30/23 10/31/24 Rx tablet vomiting #10 tabs tamsulosin 0.4 mg capsule (Flomax) 0.4 mg PO DAILY #10 caps 09/30/23 10/31/24 Rx blood-glucose sensor (Guardian 4 10/28/24 10/28/24 History Glucose Sensor device) blood-glucose transmitter 10/28/24 10/28/24 History (Guardian 4 Transmitter device) clopidogrel 75 mg tablet 75 mg PO DAILY 10/28/24 11/05/24 History duloxetine 30 mg capsule,delayed 30 mg PO BID 10/28/24 10/31/24 History release furosemide 20 mg tablet 20 mg PO BID 10/28/24 10/31/24 History metformin 500 mg tablet 1,000 mg PO BID 10/28/24 10/31/24 History metoprolol succinate 50 mg 50 mg PO Q12H 10/28/24 11/05/24 History tablet,extended release 24 hr hydrocodone 5 mg-acetaminophen 325 1 tablet PO Q8H PRN pain 1-6 #12 10/30/24 10/31/24 Rx mg tablet tabs Allergies Allergy/AdvReac Type Severity Reaction Status Date / Time adhesive tape AdvReac Itching Verified 11/05/24 12:42 Vital Signs Vital Signs - 24 hr 11/05/24 12:52 Temperature 97.5 F L Pulse Rate 96 Respiratory Rate 18 Blood Pressure 138/92 H Pulse Oximetry 98 Oxygen Delivery Room Air Exam Const: General: cooperative and healthy appearing Resp: Effort & Inspection: normal respiratory effort and able to speak in complete sentences Auscultation: clear to auscultation bilaterally Cardio: Rate: regular rate Rhythm: regular rhythm GI: Inspection: normal to inspection GI Palp: No No hepatosplenomegaly present Auscultation: normal bowel sounds Rectal Exam: deferred Skin: General skin exam: normal color Psych: Appearance: grossly normal Mental Status: mental status grossly normal Assessment and Plan Assessment and plan (1) Choledocholithiasis: Code(s): K80.50 - Calculus of bile duct without cholangitis or cholecystitis without obstruction Status: Acute Assessment and Plan: The patient is deemed a good candidate for the procedure. Consent signed. Will proceed.
--- NOTE | 2024-11-05 15:53 | SUR.PHASEII ---
Per Dr. Ballesteros, patient to resume plavix 11/06/24. Patient and patient's mom informed at bedside.
== END 2024-11-05 16:17 | disposition home or self-care (01) ==
PROVIDERS: Anesthesiology; PCP Nurse Practitioner Family; Visit Provider Internal Medicine Gastroenterology
PROC: (CPT 43260; principal; 2024-11-05 13:30)
DX: K80.50 Calculus of bile duct without cholangitis or cholecystitis without obstruction (principal); E11.40 Type 2 diabetes mellitus with diabetic neuropathy, unspecified; F12.90 Cannabis use, unspecified, uncomplicated; F17.290 Nicotine dependence, other tobacco product, uncomplicated; E66.01 Morbid (severe) obesity due to excess calories; Z68.42 Body mass index [BMI] 45.0-49.9, adult
CPT/HCPCS: 43262; 43264; 74329; 82948; A9270; J0330; J2003; J2371; J2405; J2704; J3010; J7120; Q9966

== ENCOUNTER 2025-04-22 16:30 | Outpatient (CLI) | payer OTHER, SELFPAY ==
--- OUTSIDE RECORDS SUMMARY | 2025-04-22 15:30 | XMS_ITS | Encounter Summary ---
Author Organization [facility] Address [address] [place] [address] Care Team Providers Care Habilitative Interventionist Name Role Phone Dejuan Malcolm MD Unavailable Chayito Sloan NP Primary Care Provider [phone] Johan Rogel MD Unavailable [phone] Tomas Gray MD Unavailable [phone] Ramez Esteban MD Unavailable Claire Bills MD Unavailable [phone] Kimberly Liao MD Unavailable [phone] Reason for Referral * Consultation (Routine) - Pending Review Specialty Diagnoses / Procedures Referred By Contalonzo t Referred To Contact Sleep Medicine Diagnoses BRANDIE (obstructive sleep apnea) Riana Cristina, PRASHANT [address] [address] Phone: tel: [facility] Sleep Medicine [address] [place] [id number] Phone: tel: fax: Referral ID Status Reason Start Date Expiration Date Visits Requested Visits Authorized [id number] Pending Review Specialty Services Required 5 05/22/2026 1 1 Question Answer Please select the performing region: [facility] [[id number]] Please select the performing department: [facility] [place] [facility] [[id number]] # of visits: 1 RTING OPERATOR Reason for Visit * Reason Comments Coronary Artery Disease Hypertension s/p CABG Hosp f/u Dyslipidemi a Encounter Details Date Type Department Care Team (Late st Contact Info) Description 04/22/2025 3:30 PM INSERTING OPERATOR Office Visit [facility] Cardiology [address] [place] [address] Riana Cristina NP [address] [facility] [address], [place] [address] Heart failure with mid-range ejection fraction (HFmEF) (Primary Dx); BRANDIE (obstructive sleep apnea); Dyslipidemia; Coronary artery disease involving [place] coronary artery of [place] heart without angina pectoris; Primary hypertension Social History Tobacco Use Types Packs/Day Years Used Date Smoking Tobacco: Never Smokeless Tobacco: Never Alcohol Use Standard Drinks/Week Comments Never 0 (1 standard drink = 0.6 oz pur e alcohol) OASIS D0700: Social Isolation Answer Da te [...] materials from doctor or pharmacy Never 01/04/2024 Overall Financial Resource Strain (CARDIA) Answe r Date Recorded How hard is it for you to pa y for the very basics like food, housing, medical care, and heating? Not hard at all 10/16/2023 PHQ-2 Answer Date Recorded PHQ-2 Total Score (If total score is 3 or more points, staff should administer the PHQ-9) 2 10/09/2024 PRAPARE - Transportation Answer Date Re corded [...] place to sleep or slept in a residential (including now)? No 06/21/2023 PHQ-9 Answer Date Recorded PHQ-9 Total Score 5 10/09/2024 Housing Stability Vital Sign Answer Rajan e Recorded In the last 12 months, was t here a time when you were not able to pay the mortgage or rent on time? No 10/16/2023 In the past 12 months, how m any times have you moved where you were living? 0 10/16/2023 At any time in the past 12 m [facility], were you homeless or living in a residential (including now)? No 10/16/2023 Social Connection and Isolation Panel Answer Date Recorded In a typical week, how many times do you talk on the phone with family, friends, or neighbors? More than three times a week 04/01/2025 How often do you get togethe r with friends or relatives? Twice a week 04/01/2025 How often do you attend chur ch or sabianist services? Never 04/01/2025 Do you belong to any clubs o r organizations such as zoroastrianism groups, unions, fraternal or athletic groups, or school groups? No 04/01/2025 How often do you attend meet ings of the clubs or organizations you belong to? Never 04/01/2025 Are you , , di vorced, , never , or living with a partner? Living with partner 04/01/2025 AUDIT-C Answer Date Recorded Q1: How often do you have a drink containing alcohol? Never 04/01/2025 Q2: How many drinks containi ng alcohol do you have on a typical day when you are drinking? Patient does not drink Q3: How often do you have si x or more drinks on one occasion? Never 04/01/2025 Overall Financial Resource Strain (CARDIA) Answe r Date Recorded How hard is it for you to pa y for the very basics like food, housing, medical care, and heating? Not hard at all 04/01/2025 Hunger Vital Sign Answer Date Recorded Within the past 12 months, y ou worried that your food would run out before you got the money to buy more. Never true 04/01/20 Within the past 12 months, t he food you bought just didn't last and you didn't have money to get more. Never true 04/01/2025 PRAPARE - Transportation Answer Date Re corded In the past 12 months, has l ack of transportation kept you from medical appointments or from getting medications? No 03/09 In the past 12 months, has l ack of transportation kept you from meetings, work, or from getting things needed for daily living? No 04/01/2025 Housing Stability Vital Sign Answer Rajan e Recorded In the last 12 months, was t here a time when you were not able to pay the mortgage or rent on time? No 04/01/2025 In the past 12 months, how m any times have you moved where you were living? 0 04/01/2025 At any time in the past 12 m [facility], were you homeless or living in a residential (including now)? No 04/01/2025 [facility] Utilities Answer Date Recorded In the past 12 months has th e electric, gas, oil, or water company threatened to shut off services in your home? No 04/01/2025 Personal Safety Answer Date Recorded Have you ever been in or are you currently in a harmful physical or emotional relationship or is someone making you feel afraid or unsafe? Denies 03/29/2025 Comments Unknown Sex and Gender Information Value Date Recorded Sex Assigned at Not on file Legal Sex Female 2:12 PM CDT Gender Identity Not on file Sexual Orientation Not on file documented as of this encounter Last Filed Vital Signs Vital Sign Reading Time Taken Comments Blood Pressure 118/74 04/22/2025 3:37 PM INSERTING OPERATOR Pulse 101 04/22/2025 3:37 PM INSERTING OPERATOR Temperature - - Respiratory Rate - - Oxygen Saturation 95% 04/22/2025 3:37 PM INSERTING OPERATOR Inhaled Oxygen Concentration - - Weight 122.5 kg (270 lb) 04/22/2025 3:37 PM INSERTING OPERATOR Height 149.9 cm (4' 11) 04/22/2025 3:37 PM INSERTING OPERATOR Body Mass Index 54.53 04/22/2025 3:37 PM INSERTING OPERATOR documented in this encounter Functional Status * BP Location Answer Date of Assessment Author Right arm 04/22/2025 3:37 PM INSERTING OPERATOR Marcia Mejia MA * BP Location Answer Date of Assessment Author Right arm 04/22/2025 3:37 PM INSERTING OPERATOR Marcia Mejia MA documented as of this encounter Patient Instructions * Patient Instructions* Riana Cristina NP - 04/22/2025 3:30 PM INSERTING OPERATOR Please get your labs We will send repatha shots for your cholesterol Will refer to sleep medicine for your cpap RTING OPERATOR documented in this encounter Ordered Prescriptions Prescription Sig Dispense Quantity Refills Last Filled Start Date End Date evolocumab (REPATHA) syringe syringe Inject 1 mL (140 mg total) under the skin every 14 (fourteen) days 2 mL 11 04/22/2025 documented in this encounter Progress Notes * Riana Cristina NP - 04/22/2025 3:30 PM CST Images from the original note were not included. DATE OF VISIT: 04/22/2025 CHIEF COMPLAINT Hospital follow up HFpEF HPI Gem Morales is a 40 y.o. female with a past medical history of IDDM, HLD, HTN, HFrEF, cholelithiasis, chronic pancreatitis, kidney stones, and morbid obesity. She presented to [facility] in late September 2023 with coronary artery disease. She developed chest pain while asleep waxed and waned. She presented to emergency room where she was found to have a non-Q-wave GA. Cardiac catheterization revealed 2 vessel coronary artery disease including the LAD, d iagonal, and the circumflex. 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 The patient's ejection fraction was depressed at 35%. She was transferred to [facility] and was taken to the operating room on 10/06/23 for CABG, performed by Dr. Oliva. She did have brief postoperative atrial f ibrillation and was chemically converted to NSR and discharged 6/6/24 on amiodarone. Beta-samira was held due to low blood pressure. She was readmitted on 10/14/2023 after syncopizing and falling at home. EMS reported BP 70/30 and on arrival at the hospital 88/57. She also had SVEN with creatinine up to 2. She was taken to the OR for an ankle fracture on October 17. Repeat echo showed her LVEF had improved to 54%. She was discharged with midodrine 10 mg t.i.d.. 11/17/2023 Hospital follow-up with [facility] - Gem Benjaminey comes to the office today for a hospital follow up visit. She still gets lightheaded if she changes body position too fast but her lightheadedness with walking has resolved. She is no longer on furosemide. She completed a course of cephalexinprescribed by CTS for concern of wound infection but a little over week ago another area opened andis draining. She had a positive sleep study and is awaiting a CPAP. She is having bright red blood in the stool which PCP is following. She has home health care visits but no visits this week. 04/11/2024 office visit with [facility]: She did not come to the one-month follow-up appointment that was scheduled when I last saw her. She had an urgent care visit a few weeks ago and was treated for pneumonia. ECG was done when she was examined in the clinician was concerned she had an irregular rhythm.She endorses some intermittent episodes of feeling like her heartbeat is ???off?? or ???does not feel right. ?? but she denies chest pain. When she gets this feeling it lasts a few seconds. It may happen about once a week. Seems to be more noticeable if she lays on her stomach which is positionedshe likes to fall asleep in. She never got follow-up on her sleep study. She reminds me she was previously on lisinopril before her heart surgery. She has been able to take herself off midodrine. 09/02/2024 office visit with [facility]: A couple of weeks ago she noticed her legs swelling and went to [place] ER. She was told it was venous insufficiency a no further treatment recommended. She then decided to go to [facility] ER for another opinion. She had an elevated proBNP and some pleural effusionseen on chest x-ray so she was treated with furosemide. There was also concern she had some cellulitis in the right leg and was given a course of cephalexin. Today the patient reports not seeing improvement in either the cellulitis or the edema. Her blood pressure has been running higher. 02/03/2025-former patient of Dr. Rogel. Past history of CABG, diabetes, hypertension, morbid obesity, chronic pancreatitis and diastolic heart failure. Comes here for follow-up appointment. She gained about 20 lb compared to last visit. Complains of right hip pain. Complains of bilateral extremity edema including the thighs. She has stable dyspnea on exertion unchanged from before. Denies chest pain, dizziness or syncope. 04/22/25 [facility] follow up visit. Patient returns today for hospital follow up, she was recently discharged from [facility] for acute HFpEF. She was started on IV lasix drip while inpatient with resolution of symptoms. She was noted to have acute kidney injury and ARB/ARNI was not initiated at that time. She is wearing 1L with rest and activity. She was also told she was supposed to be startedon CPAP and per pulmonary notes she is recommended to have CPAP at 14cm H2O. Since returning home she is feeling ok. She still has shortness of breath, had to stop and rest coming into the office today. Breathing is about the same as when she left the hospital. She continues to have LE edema, remains on lasix 40 mg twice daily. Has not had any follow up labs since leaving the hospital. MEDICAL HISTORY Past Medical History: Diagnosis Date Arthritis Asthma Delayed emergence from general anesthesia Diabetes mellitus Hyperlipidemia Hypertension Kidney stone Pancreatitis Type 2 diabetes mellitus Social History Tobacco Use Smoking status: Never Smokeless tobacco: Never Substance and Sexual Activity Drug use: Not Currently Types: Marijuana Sexual activity: Yes Partners: Male control/protection: None Alcohol Use: Not At Risk (04/01/2025) AUDIT-C Frequency of Alcohol Consumption: Never Average Number of Drinks: Patient does not drink Frequency of Binge Drinking: Never Family History Problem Relation Age of Onset Diabetes Father MEDICATIONS Outpatient Encounter Medications as of 04/22/2025 Medication Sig Dispense Refill acetaminophen 500 mg capsule Take 2 capsules (1,000 mg total) by mouth every 6 (six) hours as needed for pain albuterol HFA (PROVENTIL HFA,VENTOLIN HFA,PROAIR HFA) 90 mcg/actuation inhaler Inhale 2 puffs as needed amoxicillin-clavulanate (AUGMENTIN) 875-125 mg per tablet Take 1 tablet (875 mg of amoxicillin total) by mouth 2 (two) times a day For 7days aspirin 81 mg enteric coated tablet Take 1 tablet (81 mg total) by mouth daily 30 tablet 1 atorvastatin (LIPITOR) 80 mg tablet Take 1 tablet (80 mg total) by mouth daily 90 tablet 3 blood-glucose sensor (Guardian 4 Glucose Sensor) device USE with Guardian 4 Sensors TO monitor blood glucose as directed camphor-menthoL (SARNA) lotion Apply topically every 2 (two) hours as needed for itching 222 mL 0 clopidogreL (PLAVIX) 75 mg tablet TAKE 1 TABLET BY MOUTH EVERY DAY 30 tablet 3 dapagliflozin propanediol (FARXIGA) 10 mg tablet Take 1 tablet (10 mg total) by mouth daily [address] (CYMBALTA) 30 mg capsule Take 1 capsule (30 mg total) by mouth daily evolocumab (REPATHA) syringe syringe Inject 1 mL (140 mg total) under the skin every 14 (fourteen) days 2 mL 11 fenofibrate (TRIGLIDE) 160 mg tablet Take 1 tablet (160 mg total) by mouth daily furosemide (LASIX) 40 mg tablet Take 1 tablet (40 mg total) by mouth 2 (two) times a day 60 tablet 0 gabapentin (NEURONTIN) 600 mg tablet Take 1 tablet (600 mg total) by mouth 3 (three) times a day HYDROcodone-acetaminophen (NORCO) 5-325 mg per tablet Take 1 tablet by mouth every 8 (eight) hours as needed for pain insulin regular U-500 (HumuLIN R U-500) 500 unit/mL (3 mL) CONCENTRATED pen for injection Use via insulin pump. Maximum total daily dose 600 units 30 mL 3 metFORMIN (GLUCOPHAGE) 500 mg tablet Take 2 tablets (1,000 mg total) by mouth 2 (two) times a day metoprolol XL (TOPROL-XL) 50 mg extended release tablet Take 1 tablet (50 mg total) by mouth daily 90 tablet 3 miconazole 2 % cream Apply topically 2 (two) times a day 106 g 0 omeprazole (PriLOSEC) 40 mg capsule Take 1 capsule (40 mg total) by mouth daily ondansetron ODT (ZOFRAN-ODT) 4 mg disintegrating tablet Take 1 tablet (4 mg total) by mouth every 6(six) hours as needed for nausea or vomiting 20 tablet 0 pancrelipase (CREON) 12,000 units of lipase capsule Take 2 capsules by mouth ramelteon (ROZEREM) 8 mg tablet Take 1 tablet (8 mg total) by mouth nightly as needed for sleep 30 tablet 0 TRUEplus Pen Needle 31 gauge x 09/20 needle USE 4 TIMES A DAY No facility-administered encounter medications on file as of 04/22/2025. ALLERGIES Allergies Allergen Reactions Adhesive Itching REVIEW OF SYSTEMS Review of Systems Cardiovascular: Positive for dyspnea on exertion and leg swelling. Negative for chest pain. Respiratory: Positive for shortness of breath. PHYSICAL EXAM There were no vitals taken for this visit. Physical Exam Vitals reviewed. Constitutional: Appearance: She is obese. Cardiovascular: Rate and Rhythm: Normal rate and regular rhythm. Heart sounds: Normal heart sounds. Neurological: Mental Status: She is alert. LABS AND OTHER DIAGNOSTIC TESTS Lab Results Component Value Date WBC 9.39 04/05/2025 HGB 13.1 04/05/2025 HCT 42.6 04/05/2025 MCV 85.4 04/05/2025 Chemistry Component Value Date/Time SODIUM 136 04/07/2025 0543 POTASSIUM 3.7 04/07/2025 0543 CHLORIDE 89 (L) 04/07/2025 0543 CO2 34 (H) 04/07/2025 0543 BUNSER 43 (H) 04/07/2025 0543 CREATININE 1.37 (H) 04/07/2025 0543 CREATININE 0.95 05/20/2024 0000 CREATININE 0.95 05/20/2024 0000 GLUCOSE 164 04/07/2025 1303 GLUCOSE 220 (H) 04/07/2025 0543 Component Value Date/Time CALCIUM 9.5 04/07/2025 0543 ALKPHOS 120 03/30/2025 0307 AST 45 03/30/2025 0307 ALT 22 03/30/2025 0307 BILITOT 0.3 03/30/2025 0307 Lab Results Component Value Date CHOL 227 (H) 11/12/2024 CHOL 165 10/04/2023 Lab Results Component Value Date HDL 38 (L) 11/12/2024 HDL 47 10/04/2023 LDL Date Value Ref Range Status 11/12/2024 149 (H) mg/dL (calc) Final Comment: Reference range: <100 Desirable range <100 mg/dL for primary prevention; <70 mg/dL for patients with CHD or diabetic patients with > or = 2 CHD risk factors. LDL-C is now calculated using the Tiarra calculation, which is a validated novel method providing better accuracy than the Friedewald equation in the estimation of LDL-C. Naeem ELIZONDO et al. SHANTE. 2013;310(19): 6466-7981 (http://education.StepLeader/faq/VXZ465) ] Lab Results Component Value Date LDLCALC 67 10/04/2023 Lab Results Component Value Date TRIG 260 (H) 11/12/2024 TRIG 253 (H) 10/04/2023 Lab Results Component Value Date CHOLHDL 6.0 (H) 11/12/2024 CHOLHDL 4 10/04/2023 EKG 03/28/25: sinus tachycardia with rate of 107 bpm, with ST depression in inferior leads. Echo 03/31/25: Technically difficult study with limited views and visualization. Valves in general are poorly visualized. Optic was utilized. The. Normal left ventricular size. Mild concentric left ventricular hypertrophy. Left ventricular systolic function at the lower limit of normal. Normal left ventricular diastolic function. Ejection fraction is measured at 52 %. Ejection Fraction is visually estimated to be 45-50 %. Global hypokinesis noted. Normal right ventricular size. Normal right ventricular systolic function. There is mild enlargement of left atrium. Mitral valve leaflets appear mildly thickened. Moderate mitral annular calcification. Trivial regurgitation of the mitral valve.Aortic valve not well visualized. Aortic cusps appear mildly sclerotic. No evidence of hemodynamically significantaortic stenosis by Doppler. Normal structure of the tricuspid valve. Normal right ventricular systolic pressure. Mild tricuspid regurgitation.Normal pericardium with no significant pericardial effusion. ASSESSMENT Assessment & Plan Heart failure with mid-range ejection fraction (HFmEF) Patient recently hospitalized for acute on chronic decompensated heart failure. EF of 45% at time of hospital stay. In office today appears to be overloaded, she is declining returning to hospital. She was discharged home on lasix 40 mg BID, on exam however, significant edema of LE is noted. She admits to chronic edema. Weight today appears to be up 15 lbs from time of hospital discharge. Discussed importance of low salt diet and weighing self daily. She did not begin Farxiga at time of discharge, but will begin. Will update her BMP and pBNP today, if renal function stable will add metolazone2.5 mg prior to am lasix for the next 3 days. Will monitor closely and plan to introduce Entresto as well when renal function tolerates. Of note patient was discharged home of O2 1 LNC, but the portable tanks have made her home bound as they do not allow her to be out for long periods. Would benefit from inogen tank. Orders: Basic metabolic panel; Future Pro B-type natriuretic peptide; Future BRANDIE (obstructive sleep apnea) Noted to have BRANDIE on last sleep study and while in hospital cpap recommended. Will refer to sleep medicine for further evaluation and management. Orders: Ambulatory referral to Sleep Medicine Dyslipidemia Despite maximum atorvastatin dose of 80 mg daily and fenofibrate her LDL remains elevated at 169. In the setting of CAD LDL should be 70 or below. Will send prescription for Repatha 140 mg SC every 2weeks Coronary artery disease involving [place] coronary artery of [place] heart without angina pectoris With history of CABG in past. Currently with no new chest pain or pressure. Will continue with aspirin 81 mg daily, plavix 75 mg daily and atorvastatin 80 mg daily Primary hypertension Blood pressure controlled at 118/74 in office today. Will continue with Toprol XL 50 mg daily and lasix 40 mg BID Will follow up after labs completed Will need close follow up in outpatient setting Riana Cristina NP RTING OPERATOR documented in this encounter Miscellaneous Notes * Assessment & Plan Note - Riana Cristina NP - 04/22/2025 3:30 PM CSTAssociated Problem(s): BRANDIE (obstructive sleep apnea) Noted to have BRANDIE on last sleep study and while in hospital cpap recommended. Will refer to sleep medicine for further evaluation and management. Orders: Ambulatory referral to Sleep Medicine RTING OPERATOR RTING OPERATOR * Assessment & Plan Note - Riana Cristina NP - 04/22/2025 3:30 PM CSTAssociated Problem(s): Dyslipidemia Despite maximum atorvastatin dose of 80 mg daily and fenofibrate her LDL remains elevated at 169. In the setting of CAD LDL should be 70 or below. Will send prescription for Repatha 140 mg SC every 2weeks RTING OPERATOR RTING OPERATOR * Assessment & Plan Note - Riana Cristina NP - 04/22/2025 3:30 PM CSTAssociated Problem(s): Coronary artery disease involving [place] coronary artery of [place] heart without angina pectoris With history of CABG in past. Currently with no new chest pain or pressure. Will continue with aspirin 81 mg daily, plavix 75 mg daily and atorvastatin 80 mg daily RTING OPERATOR RTING OPERATOR * Assessment & Plan Note - Riana Cristina NP - 04/22/2025 3:30 PM CSTAssociated Problem(s): Hypertension Blood pressure controlled at 118/74 in office today. Will continue with Toprol XL 50 mg daily and lasix 40 mg BID RTING OPERATOR RTING OPERATOR documented in this encounter Plan of Treatment Scheduled Orders Name Type Priority Associated Diagnoses Orde r Schedule Basic metabolic panel Lab Routine Heart failure with mid-range ejection fraction (HFmEF) Expected: 04/25/2025, Expires: 04/22/2026 Pro B-type natriuretic peptide Lab Routine Heart failure with mid-range ejection fraction (HFmEF) Expected: 04/25/2025, Expires: 04/22/2026 Scheduled Referrals Name Type Priority Associated Diagnoses Order Schedule Ambulatory referral to Sleep Medicine Outpatient Referral Routine BRANDIE (obstructive sleep apnea) Ordered: 04/22/2025 documented as of this encounter Visit Diagnoses Diagnosis Heart failure with mid-range ejection fraction (HFmEF)- Primary BRANDIE (obstructive sleep apnea) Obstructive sleep apnea (adult) (pediatric) Dyslipidemia Other and unspecified hyperlipidemia Coronary artery disease involving [place] coronary artery of [place] heart without angina pectoris Primary hypertension Unspecified essential hypertension documented in this encounter Discontinued Medications Medication Sig Discontinue Reason Start Date End Da te ondansetron ODT (ZOFRAN-ODT) 4 mg disintegrating tabletIndications:Nausea and Vomiting Take 1 tablet (4 mg total) by mouth every 6 (six) hours as needed for nausea or vomiting Therapy completed 04/07/2025 04/22/2025 evolocumab (REPATHA) syringe syringe Inject 1 mL (140 mg total) under the skin every 14 (fourteen) days Reorder 02/03/2025 04/22/2025 documented as of this encounter Care Teams Habilitative Interventionist Relationship Specialty Start Date End Date Chayito Sloan NP [address] [place] [id number] PCP - General Nurse Practitioner 08/29/23 Dejuan Malcolm MD [address] [facility] [address] [place] [address] Consulting Physician Gastroenterology 06/21/23 Johan Rogel MD [address] [place] [id number] Consulting Physician Interventional Cardiology 10/12/23 [place] [address] [address] [facility] [address] [place] [address] Consulting Physician Endocrinology Diabetes & Metabolism 10/12/23 [place] [id number] [address] [facility] [address] [place] [address] Consulting Physician Pulmonary Disease 04/02/25 Claire Bills MD [address] [facility] [address] [place] [address] Consulting Physician Cardiology 04/07/25 Kimberly Liao MD [address] [facility] [address] [place] [address] Consulting Physician Nephrology 04/07/25 documented as of this encounter
[2025-04-22 18:07] LABS: Anion Gap 5 mmol/L (4-12); Blood Urea Nitrogen 18 mg/dL (7-17); Calcium 9.0 mg/dL (8.4-10.2); Carbon Dioxide 32 mmol/L (22-30); Chloride 101 mmol/L (98-107); Estimated Glomerular Filt Rate > 60; Glucose 236 mg/dL (65-110); Potassium 3.9 mmol/L (3.4-5.0); Sodium 138 mmol/L (137-145)
--- OUTSIDE RECORDS SUMMARY | 2025-04-22 18:09 | XMS_ITS | Clinical Summary ---
Author Organization [facility] Address [address] [place] [address] Care Team Providers Care Gear Finisher Name Role Phone Chayito Sloan SCOTT-REHAB THERAPIST Primary Care Provider [phone] [facility],non-owned Affiliates and Associated Physician Practices is amultiple site organization consisting of ambulatory clinics and hospital sitesin [place], [place], [place] and [place]. This disclosure is being madepursuant to the Care Everywhere program and may not contain all information available regarding this patient. 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 Gender Identity Not on file Sexual Orientation Not on file Plan of Treatment Health Maintenance Due Date Last Done Comments LIPID TESTING 1984 MAMMOGRAM 1984 HIV SCREENING 01/22/1999 HEPATITIS C SCREENING 01/18/2002 DTAP/TDAP/TD VACCINES (1 - Tdap) 01/22/2003 HEPATITIS B VACCINE (1 of 3 - 19+ 3-dose series) 01/22/2003 PAP SMEAR 01/22/2005 HPV VACCINE (1 - 3-dose SCDM series) 01/22/2011 DEPRESSION SCREENING 05/08/2024 COVID-19 VACCINE (1 - 2024-2 6 season) 2025 INFLUENZA VACCINE (#1) 2025 ZOSTER VACCINE (1 of 2) 01/22/2034 [...] patient's age to complete this topic Insurance [facility] Care Teams Gear Finisher Relationship Specialty Start Date End Date Chayito Sloan APRN-GREGORY [address] [place] [id number] PCP - General Nurse Practitioner Family 10/11/23
--- OUTSIDE RECORDS SUMMARY | 2025-04-22 18:09 | XMS_ITS | Encounter Summary ---
Author Organization [facility] Address [address] [place] [address] Care Team Providers Care Estate Planning Director Name Role Phone Dejuan Malcolm MD Unavailable Chayito Sloan NP Primary Care Provider [phone] Johan Rogel MD Unavailable Tomas Gray MD Unavailable [phone] Ramez Esteban MD Unavailable [phone] Claire Bills MD Unavailable [phone] Kimberly Liao MD Unavailable Encounter Details Date Type Department Care Team (Late st Contact Info) Description 04/22/2025 Telephone [facility] Cardiology [address] [place] [address] Riana Cristina, SUSTAINABILITY COMMUNICATOR [address] [address] Social History Tobacco Use Types Packs/Day Years [...] place to sleep or slept in a correction (including now)? No 06/21/2023 PHQ-9 Answer Date [...] any time in the past 12 m [facility], were you homeless or living in a correction (including now)? No 10/16/2023 Social Connection and Isolation Panel Answer Date Recorded In a typical week, how many times do you talk on the phone with family, friends, or neighbors? More than three times a week 04/01/2025 How often do you get togethe r with friends or relatives? Twice a week 04/01/2025 How often do you attend [facility] or confucianist services? Never 04/01/2025 Do you belong to any clubs o r organizations such as baptism groups, unions, fraternal or athletic groups, or [...] any time in the past 12 m [facility], were you homeless or living in a correction (including now)? No 04/01/2025 [facility] Utilities Answer Date Recorded In [...] as of this encounter Functional Status * BP Location Answer Date of Assessment Author Right arm 04/22/2025 3:37 PM SENIOR SITE MANAGER Marcia Mejia MA * BP Location Answer Date of Assessment Author Right arm 04/22/2025 3:37 PM SENIOR SITE MANAGER Marcia Mejia MA documented as of this encounter Miscellaneous Notes * Telephone Encounter - Raven Norman RN - 04/22/2025 4:58 PM SENIOR SITE MANAGER Pt aware, she will contact [facility] to request they ask the ordering provider for Inogen tank and orders if she needs additional tanks for travel. She verbalized understanding OR SITE MANAGER * Telephone Encounter - Riana Cristina NP - 04/22/2025 4:27 PM SENIOR SITE MANAGER Please discuss with her that she will need to call [facility] to determine who the ordering provider of her oxygen is and if order can be sent to us or her primary physician to help determine if we can qualify her for inogen tank. In the meantime she may need to discuss with them that she needs extra tanks for upcoming travel. OR SITE MANAGER documented in this encounter Plan of Treatment Not on file documented as of this encounter Visit Diagnoses Not on filedocumented in this encounter Care Teams Estate Planning Director Relationship Specialty Start Date End Date Chayito Sloan NP [address] [place] [address] PCP - General Nurse Practitioner 08/29/23 Dejuan Malcolm MD [address] [place] [address] Consulting Physician Gastroenterology 06/21/23 Johan Rogel MD [address] [place] [address] Consulting Physician Interventional Cardiology 10/12/23 [place] [address] [place] [address] Consulting Physician Endocrinology Diabetes & Metabolism 10/12/23 [place] [address] [facility] [address] [place] [address] Consulting Physician Pulmonary Disease 04/02/25 Claire Bills MD [address] [facility] [address] [place], [place] [id number] Consulting Physician Cardiology 04/07/25 Kimberly Liao MD [address] [facility] [address] [place] [address] Consulting Physician Nephrology 04/07/25 documented as of this encounter
--- OUTSIDE RECORDS SUMMARY | 2025-04-22 18:09 | XMS_ITS | Patient Health Record ---
Author Organization [facility] Address [address] [place] [address] Care Team Providers Care Butt Maker Name Role Phone Darin SHAH, Alissa Primary Care Provider Unavail able MIQUEL CERDA, JAYANT Unavailable Oliver SHAH, Lacho Olson Unavailable Allergies No Known Allergies Reason For Referral No Information Medications Medication SIG (Take, Route, Frequency, Duration) Notes Start Date End Date Status Lantus 40units at [facility] Activ e Creon 57434-426[address] UNIT as directed Orall y Take 2 with meals. Max 6/day; Duration: 30 days Active HumaLOG Active Gabapentin 600 MG 1 tablet Orally thre e times a day Active Problems Problem Type SNOMED Code ICD Code Onset Dates Problem Status W/U Status Risk Notes Problem Chronic pancreatitis (016076931) Other chronic pancreatitis (K86.1) Active confirmed Plan Of Treatment Pending Test Test Name Order Date Endoscopic Retrograde Cholangiopancreato graphy (ERCP) 05/11/2023 Endoscopic Retrograde Cholangiopancreato graphy (ERCP) 09/22/2023 Insurance Providers Payer Name Payer Address Payer Phone Subscriber Number Group Number Insured Name Patient Relationship to Insured Coverage Start Date Coverage End Date [address] [id number] Gem Morales Self - patient is the insured Medical (General) History Medical History History ICD Code diabetes mellitus anxiety kidney stones Surgical History Surgery Date(Month/Year) tonsillectomy toe amputation cholecystectomy
--- OUTSIDE RECORDS SUMMARY | 2025-04-22 18:09 | XMS_ITS | Clinical Summary ---
Author Organization [facility] Address [address] [place] [id number] Care Team Providers Care Packing And Shipping Clerk Name Role Phone Dejuan Malcolm MD Unavailable Chayito Sloan NP Primary Care Provider [phone] Johan Rogel MD Unavailable [phone] Tomas Gray MD Unavailable [phone] Ramez Esteban MD Unavailable Claire Bills MD Unavailable [phone] Kimberly Liao MD Unavailable Allergies Active Allergy Reactions Criticality Noted Date Comments Adhesive Itching Low 03/29/2025 Medications acetaminophen 500 mg capsuleIndications :Pain Take 2 capsules (1,000 mg total) by mouth every 6 (six) hours as needed for pain 10/12/19 24 Active aspirin 81 mg enteric coated tabletIndications: prevention of thrombosis Take 1 tablet (81 mg total) by mouth daily 30 tablet 1 10/13/19 24 Active metFORMIN (GLUCOPHAGE) 500 mg tablet Take 2 tablets (1,000 mg total) by mouth 2 (two) times a day Active fenofibrate (TRIGLIDE) 160 mg tablet Take 1 tablet (160 mg total) by mouth daily Active albuterol HFA (PROVENTIL HFA,VENTOLIN HFA,PROAIR HFA) 90 mcg/actuation inhaler Inhale 2 puffs as needed 03/26/[address] (CYMBALTA) 30 mg capsule Take 1 capsule (30 mg total) by mouth daily 03/21/20 24 Active gabapentin (NEURONTIN) 600 mg tablet Take 1 tablet (600 mg total) by mouth 3 (three) times a day 04/09/20 24 Active blood-glucose sensor (Guardian 4 Glucose Sensor) device USE with Guardian 4 Sensors TO monitor blood glucose as directed 06/03/19 25 Active metoprolol XL (TOPROL-XL) 50 mg extended release tabletIndications: Coronary artery disease involving jamul coronary artery of jamul heart without angina pectoris Take 1 tablet (50 mg total) by mouth daily 90 tablet 3 09/03/19 25 026 Active atorvastatin (LIPITOR) 80 mg tablet Take 1 tablet (80 mg total) by mouth daily 90 tablet 3 11/14/19 25 026 Active pancrelipase (CREON) 12,000 units of lipase capsule Take 2 capsules by mouth 04/11/20 23 Active TRUEplus Pen Needle 31 gauge x 5/16 needle USE 4 TIMES A DAY 11/02/19 25 Active clopidogreL (PLAVIX) 75 mg tablet TAKE 1 TABLET BY MOUTH EVERY DAY 30 tablet 3 01/23/20 25 Active insulin regular U-500 (HumuLIN R U-500) 500 unit/mL (3 mL) CONCENTRATED pen for injection Use via insulin pump. Maximum total daily dose 600 units 30 mL 3 03/13/20 25 Active HYDROcodone-acetam inophen (NORCO) 5-325 mg per tabletIndications: Pain Take 1 tablet by mouth every 8 (eight) hours as needed for pain Active omeprazole (PriLOSEC) 40 mg capsule Take 1 capsule (40 mg total) by mouth daily Active amoxicillin-clavul anate (AUGMENTIN) 875-125 mg per tabletIndications: The pt reported that is for my teeth Take 1 tablet (875 mg of amoxicillin total) by mouth 2 (two) times a day For 7days Active furosemide (LASIX) 40 mg tablet Take 1 tablet (40 mg total) by mouth 2 (two) times a day 60 tablet 04/07/20 25 025 Active camphor-menthoL (SARNA) lotion Apply topically every 2 (two) hours as needed for itching 222 mL 04/07/20 25 Active dapagliflozin propanediol (FARXIGA) 10 mg tabletIndications: Heart Failure Take 1 tablet (10 mg total) by mouth daily 30 tablet 04/08/20 026 Active Additional Information Patient not taking.Reported on 04/22/2025 miconazole 2 % cream Apply topically 2 (two) times a day 106 g 04/07/20 Active ramelteon (ROZEREM) 8 mg tabletIndications: Sleep-Onset Insomnia Take 1 tablet (8 mg total) by mouth nightly as needed for sleep 30 tablet 04/07/20 025 Active evolocumab (REPATHA) syringe syringe Inject 1 mL (140 mg total) under the skin every 14 (fourteen) days 2 mL 04/22/20 Active furosemide (LASIX) 20 mg tablet Take 1 tablet (20 mg total) by mouth daily 30 tablet 02/04/20 025 Discontin ued(Stop Taking at Discharge ) evolocumab (REPATHA) syringe syringe Inject 1 mL (140 mg total) under the skin every 14 (fourteen) days 2 mL 02/04/20 025 Discontin ued(Reord er) ondansetron ODT (ZOFRAN-ODT) 4 mg disintegrating tabletIndications: Nausea and Vomiting Take 1 tablet (4 mg total) by mouth every 6 (six) hours as needed for nausea or vomiting 20 tablet 04/07/20 025 Discontin ued(Thera py completed ) Active Problems Problem Noted Date Diagnosed Date Congestive heart failure, un specified HF chronicity, unspecified heart failure type 03/29/2025 Severe obesity 11/11/2024 Body mass index (BMI) 50.0-59.9, adult Diabetic polyneuropathy asso ciated with type 2 diabetes mellitus 09/02/2024 Nondisplaced fracture of med ial malleolus of left tibia, initial encounter for closed fracture 10/18/2023 Syncope and collapse 10/14/2023 S/P CABG (coronary artery bypass graft) 10/09/19 24 Sepsis without acute organ dysfunction 4 Leukocytosis 10/05/2023 Hypertension 10/05/2023 Assessment & Plan (04/22/2025 4:27 PM BRUSH HOLDER INSPECTOR): Blood pressure controlled at 118/74 in office today. Will continue with Toprol XL 50 mg daily and lasix 40 mg BID Depression 10/05/2023 Coronary artery disease invo lving jamul coronary artery of jamul heart without angina pectoris 10/04/2023 Assessment & Plan (04/22/2025 4:27 PM BRUSH HOLDER INSPECTOR): With history of CABG in past. Currently with no new chest pain or pressure. Will continue with aspirin 81 mg daily, plavix 75 mg daily and atorvastatin 80 mg daily Morbid obesity with BMI of 40.0-44.9, adult 09/06 Chronic pancreatitis 10/04/2023 Kidney stones 10/04/2023 Type 2 diabetes mellitus, wi th long-term current use of insulin 10/04/2023 Dyslipidemia 10/04/2023 Assessment & Plan (04/22/2025 4:27 PM BRUSH HOLDER INSPECTOR): Despite maximum atorvastatin dose of 80 mg daily and fenofibrate her LDL remains elevated at 169. In the setting of CAD LDL should be 70 or below. Will send prescription for Repatha 140 mg SC every 2 weeks BRANDIE (obstructive sleep apnea) 10/04/2023 Assessment & Plan (04/22/2025 4:27 PM BRUSH HOLDER INSPECTOR): Noted to have BRANDIE on last sleep study and while in hospital cpap recommended. Will refer to sleep medicine for further evaluation and management. Orders: Ambulatory referral to Sleep Medicine Gastroesophageal reflux disease without esophagi tis 10/04/2023 Hepatic steatosis 10/04/2023 Psoriasis (a type of skin inflammation) 10/04/19 Mild asthma 10/04/2023 Bile duct stenosis 06/20/2023 Upper abdominal pain 06/19/2023 Resolved Problems Problem Noted Date Diagnosed Date Resolved Date NSTEMI (non-ST elevated myoc ardial infarction) 10/05/2023 02/03/2025 Coronary artery disease of n ative heart with stable angina pectoris 10/05/2023 10/15/2023 Encounters Date Type Department Care Team Description 04/22/2025 3:30 PM BRUSH HOLDER INSPECTOR Office Visit [facility] [address] [place] [address] Riana Cristina NP Heart failure with mid-range ejection fraction (HFmEF) (Primary Dx); BRANDIE (obstructive sleep apnea); Dyslipidemia; Coronary artery disease involving jamul coronary artery of jamul heart without angina pectoris; Primary hypertension 04/22/2025 Telephone [facility] [address] [place] [address] Riana Cristina NP 04/07/2025 Telephone [facility] [address], [place] [phone] Sridevi King NP 03/28/2025 4:12 PM BRUSH HOLDER INSPECTOR - 04/07/2025 6:15 PM BRUSH HOLDER INSPECTOR Hospital Encounter [address] [address] Alexis Torres MD Rao, MD Tyrese Walker Samantha, MD Khoukaz, Keagan Morales MD Congestive heart failure, unspecified HF chronicity, unspecified heart failure type (HCC) (Primary Dx); Hypervolemia, unspecified hypervolemia type; Avulsion of toenail, initial encounter; Jaw pain; Coronary artery disease involving jamul coronary artery of jamul heart without angina pectoris; S/P CABG (coronary artery bypass graft); Diabetic polyneuropathy associated with type 2 diabetes mellitus (HCC); Type 2 diabetes mellitus with other circulatory complication, with long-term current use of insulin; BRANDIE (obstructive sleep apnea) Discharge Disposition: Discharge to home or self care 02/03/2025 1:45 PM CDT Office Visit [facility] [address] [place] [address] Claire Bills MD S/P CABG (coronary artery bypass graft) (Primary Dx); Coronary artery disease involving jamul coronary artery of jamul heart without angina pectoris; Primary hypertension; Dyslipidemia 2025 Telephone [facility] [address] [place] [phone] Kathy Gallo NP Scheduling Appointments from Last 3 Months Surgical History Surgery Date Site/Laterality Comments CYSTOSCOPY W/ LASER LITHOTRIPSY 05/08/2018 - 05/07/2019 TOE AMPUTATION 05/08/2021 - 05/07/2022 Left FOOT SURGERY 05/08/2023 - 05/07/2024 Right bone removal CHOLECYSTECTOMY 05/08/2022 - 05/07/2023 TONSILECTOMY, ADENOIDECTOMY, BILATERAL MYRINGOTOMY AND TUBES CORONARY ARTERY BYPASS GRAFT 10/06/2023 Medical History Medical History Date Comments Diabetes mellitus Delayed emergence from general anesthesia Pancreatitis Hyperlipidemia Asthma Type 2 diabetes mellitus Kidney stone Arthritis Hypertension Family History Medical History Relation Name Comments [...] place to sleep or slept in a long-term (including now)? No 06/21/2023 PHQ-9 Answer Date [...] any time in the past 12 m [facility], were you homeless or living in a long-term (including now)? No 10/16/2023 Social Connection and Isolation Panel Answer Date Recorded In a typical week, how many times do you talk on the phone with family, friends, or neighbors? More than three times a week 04/01/2025 How often do you get togethe r with friends or relatives? Twice a week 04/01/2025 How often do you attend chur ch or denominational services? Never 04/01/2025 Do you belong to any clubs o r organizations such as hoahaoism groups, unions, fraternal or athletic groups, or [...] any time in the past 12 m [facility], were you homeless or living in a long-term (including now)? No 04/01/2025 [employer] Answer Date Recorded In the past [...] Comments Blood Pressure 118/74 04/22/2025 3:37 PM BRUSH HOLDER INSPECTOR Pulse 101 04/22/2025 3:37 PM BRUSH HOLDER INSPECTOR Temperature 36.4 C (97.5 F) 04/07/2025 11:48 AM BRUSH HOLDER INSPECTOR Respiratory Rate 20 04/07/2025 4:15 PM BRUSH HOLDER INSPECTOR Oxygen Saturation 95% 04/22/2025 3:37 PM BRUSH HOLDER INSPECTOR Inhaled Oxygen Concentration - - Weight 122.5 kg (270 lb) 04/22/2025 3:37 PM BRUSH HOLDER INSPECTOR Height 149.9 cm (4' 11) 04/22/2025 3:37 PM BRUSH HOLDER INSPECTOR Body Mass Index 54.53 04/22/2025 3:37 PM BRUSH HOLDER INSPECTOR Plan of Treatment Health Maintenance Due Date Last Done Comments Breast Cancer Screening-Mammogram 1984 Cervical Cancer Screening 1984 Hepatitis C Screening 1984 Varicella Vaccines (1 of 2 - 13+ 2-dose series) 01/22/1997 Hepatitis B Screening 01/22/2002 Regular Well Visit/Exam 18-64 01/22/2002 DTaP/Tdap/Td Vaccine (3 - Td or Tdap) 06/22/2023 06/22/2013, 11/03/2006 Covid-19 Vaccine (3 - 2024-2 6 season) 2025 08/17/2021, 07/20/2021 Influenza Vaccine (#1) 2025 Dilated Eye Exam 04/19/2025 04/19/2024 Foot Exam 04/19/2025 04/19/2024 Albumin Creatinine Ratio, Urine 04/26/2025 Hemoglobin A1C 09/26/2025 03/29/2025, 07/0 11/2024, 08/06/2024, Additional history exists Depression Screening 10/09/2025 10/09/2024, 10/10/19 25 Lipid Panel 02/03/2026 02/03/2025, 07/0 12/2024, 10/04/2023 eGFR 04/07/2026 04/07/2025, 03/10, 04/05/2025, Additional history exists HPV Vaccines Completed 05/04/2007, 12/08, 11/03/2006 Pneumococcal vaccine <65 Completed 08/17/2021 Medical Devices Implanted Type Area [employer] Device Identifier Shelf Expiration Date Model / Serial / Lot [employer] Low Profile Screws 4mm 40mm Modular Self Drill Self Tap [id number]-8840c-40 - [id number] Implanted:Qty: 1 on 10/18/2023 by Mario Correa Jr., MD at [facility] Left: Ankle [employer] AR-8840C-40 / / Explanted Type Area [employer] Device Identifier Shelf Expiration Date Model / Serial / Lot [employer] Schuster 5fr 9cm Pancreatic Stent [id number] - [id number] Implanted:Qty: 1 on 06/19/2023 by Dejuan Malcolm MD at [facility] Explanted:Qty: 1 on 06/21/2023 by Dejuan Malcolm MD at [facility] Stent [employer] 02/06/2028 [id number] / / [id number] [employer] Gina Wallflex 8mm 8.5fr 60mm 194cm Rapid Exchange Full Cover Closed [id number] - [id number] Implanted:Qty: 1 on 06/19/2023 by Dejuan Malcolm MD at [facility] Explanted:Qty: 1 on 06/21/2023 by Dejuan Malcolm MD at [facility] Stent N/A: Bile Duct [employer] Gina 02/07/2025 [id number] / / [id number] Procedures Procedure Name Priority Date/Time Associated Diagnosis Comments POCT GLUCOSE DEVICE Routine 04/07/2025 1 :03 PM BRUSH HOLDER INSPECTOR POCT GLUCOSE DEVICE Routine 04/07/2025 7 :33 AM BRUSH HOLDER INSPECTOR EGFR Routine 04/07/2025 5:43 AM BRUSH HOLDER INSPECTOR RENAL FUNCTION PANEL Routine 04/07/2025 5:43 AM BRUSH HOLDER INSPECTOR POCT GLUCOSE DEVICE Routine 04/06/2025 8 :35 PM BRUSH HOLDER INSPECTOR POCT GLUCOSE DEVICE Routine 04/06/2025 5 :26 PM BRUSH HOLDER INSPECTOR POCT GLUCOSE DEVICE Routine 04/06/2025 1 2:13 PM BRUSH HOLDER INSPECTOR HOME O2 EVAL (DESATURATION SCREEN) Routine 04/06/2025 9:01 AM BRUSH HOLDER INSPECTOR POCT GLUCOSE DEVICE Routine 04/06/2025 7 :34 AM BRUSH HOLDER INSPECTOR EGFR Routine 04/06/2025 5:58 AM BRUSH HOLDER INSPECTOR RENAL FUNCTION PANEL Routine 04/06/2025 5:58 AM BRUSH HOLDER INSPECTOR POCT GLUCOSE DEVICE Routine 04/06/2025 2 :16 AM BRUSH HOLDER INSPECTOR POCT GLUCOSE DEVICE Routine 04/05/2025 8 :39 PM BRUSH HOLDER INSPECTOR POCT GLUCOSE DEVICE Routine 04/05/2025 4 :54 PM BRUSH HOLDER INSPECTOR POCT GLUCOSE DEVICE Routine 04/05/2025 1 2:20 PM BRUSH HOLDER INSPECTOR EGFR Routine 04/05/2025 10:34 AM BRUSH HOLDER INSPECTOR RENAL FUNCTION PANEL Routine 04/05/2025 10:34 AM BRUSH HOLDER INSPECTOR POCT GLUCOSE DEVICE Routine 04/05/2025 7 :40 AM BRUSH HOLDER INSPECTOR DIFFERENTIAL AUTO Routine 04/05/2025 6:4 1 AM BRUSH HOLDER INSPECTOR CBC WITH AUTO DIFFERENTIAL Routine 04/05/2025 6:41 AM BRUSH HOLDER INSPECTOR POCT GLUCOSE DEVICE Routine 04/05/2025 1 :26 AM BRUSH HOLDER INSPECTOR POCT GLUCOSE DEVICE Routine 04/04/2025 9 :33 PM BRUSH HOLDER INSPECTOR POCT GLUCOSE DEVICE Routine 04/04/2025 5 :21 PM BRUSH HOLDER INSPECTOR POCT GLUCOSE DEVICE Routine 04/04/2025 1 2:38 PM BRUSH HOLDER INSPECTOR POCT GLUCOSE DEVICE Routine 04/04/2025 7 :50 AM BRUSH HOLDER INSPECTOR EGFR Routine 04/04/2025 6:58 AM BRUSH HOLDER INSPECTOR DIFFERENTIAL AUTO Routine 04/04/2025 6:5 8 AM BRUSH HOLDER INSPECTOR MAGNESIUM Routine 04/04/2025 6:58 AM BRUSH HOLDER INSPECTOR CBC WITH AUTO DIFFERENTIAL Routine 04/04/2025 6:58 AM BRUSH HOLDER INSPECTOR RENAL FUNCTION PANEL Routine 04/04/2025 6:58 AM BRUSH HOLDER INSPECTOR POCT GLUCOSE DEVICE Routine 04/03/2025 8 :22 PM BRUSH HOLDER INSPECTOR POCT GLUCOSE DEVICE Routine 04/03/2025 5 :28 PM BRUSH HOLDER INSPECTOR POCT GLUCOSE DEVICE Routine 04/03/2025 1 2:18 PM BRUSH HOLDER INSPECTOR POCT GLUCOSE DEVICE Routine 04/03/2025 7 :34 AM BRUSH HOLDER INSPECTOR MAGNESIUM Routine 04/03/2025 6:15 AM BRUSH HOLDER INSPECTOR POCT GLUCOSE DEVICE Routine 04/02/2025 8 :42 PM BRUSH HOLDER INSPECTOR POCT GLUCOSE DEVICE Routine 04/02/2025 4 :30 PM BRUSH HOLDER INSPECTOR US KIDNEY COMPLETE IP Routine 04/02/2025 2: 53 PM BRUSH HOLDER INSPECTOR POCT GLUCOSE DEVICE Routine 04/02/2025 1 2:11 PM BRUSH HOLDER INSPECTOR POCT GLUCOSE DEVICE Routine 04/02/2025 7 :32 AM BRUSH HOLDER INSPECTOR EGFR Routine 04/02/2025 5:10 AM BRUSH HOLDER INSPECTOR PRO B-TYPE NATRIURETIC PEPTIDE Routine 04/02/2025 5:10 AM BRUSH HOLDER INSPECTOR MAGNESIUM Routine 04/02/2025 5:10 AM BRUSH HOLDER INSPECTOR RENAL FUNCTION PANEL Routine 04/02/2025 5:10 AM BRUSH HOLDER INSPECTOR POCT GLUCOSE DEVICE Routine 04/01/2025 8 :31 PM BRUSH HOLDER INSPECTOR PROTEIN / CREATININE RATIO, URINE, RANDOM Routine 04/01/2025 7:42 PM BRUSH HOLDER INSPECTOR POCT GLUCOSE DEVICE Routine 04/01/2025 5 :24 PM BRUSH HOLDER INSPECTOR POCT GLUCOSE DEVICE Routine 04/01/2025 1 2:25 PM BRUSH HOLDER INSPECTOR POCT GLUCOSE DEVICE Routine 04/01/2025 7 :42 AM BRUSH HOLDER INSPECTOR EGFR Routine 04/01/2025 5:45 AM BRUSH HOLDER INSPECTOR MAGNESIUM Routine 04/01/2025 5:45 AM BRUSH HOLDER INSPECTOR RENAL FUNCTION PANEL Routine 04/01/2025 5:45 AM BRUSH HOLDER INSPECTOR POCT GLUCOSE DEVICE Routine 04/01/2025 4 :59 AM BRUSH HOLDER INSPECTOR POCT GLUCOSE DEVICE Routine 03/31/2025 8 :18 PM BRUSH HOLDER INSPECTOR POCT GLUCOSE DEVICE Routine 03/31/2025 5 :17 PM BRUSH HOLDER INSPECTOR TRANSTHORACIC ECHO (TTE) COMPLETE W DOPPLER/CF W CONTRAST Routine 03/31/2025 1:04 PM BRUSH HOLDER INSPECTOR POCT GLUCOSE DEVICE Routine 03/31/2025 1 2:41 PM BRUSH HOLDER INSPECTOR EGFR Routine 03/31/2025 11:45 AM BRUSH HOLDER INSPECTOR RENAL FUNCTION PANEL Routine 03/31/2025 11:45 AM BRUSH HOLDER INSPECTOR POCT GLUCOSE DEVICE Routine 03/31/2025 7 :38 AM BRUSH HOLDER INSPECTOR POCT GLUCOSE DEVICE Routine 03/31/2025 3 :47 AM BRUSH HOLDER INSPECTOR POCT GLUCOSE DEVICE Routine 03/30/2025 8 :25 PM BRUSH HOLDER INSPECTOR POCT GLUCOSE DEVICE Routine 03/30/2025 6 :34 PM BRUSH HOLDER INSPECTOR POCT GLUCOSE DEVICE Routine 03/30/2025 1 2:44 PM BRUSH HOLDER INSPECTOR POCT GLUCOSE DEVICE Routine 03/30/2025 7 :33 AM BRUSH HOLDER INSPECTOR EGFR Routine 03/30/2025 3:07 AM BRUSH HOLDER INSPECTOR PHOSPHORUS Routine 03/30/2025 3:07 AM BRUSH HOLDER INSPECTOR MAGNESIUM Routine 03/30/2025 3:07 AM BRUSH HOLDER INSPECTOR COMPREHENSIVE METABOLIC PANEL Routine 03/30/2025 3:07 AM BRUSH HOLDER INSPECTOR CBC WITHOUT DIFFERENTIAL Routine 03/30/2025 3:07 AM BRUSH HOLDER INSPECTOR POCT GLUCOSE DEVICE Routine 03/29/2025 8 :56 PM BRUSH HOLDER INSPECTOR POCT GLUCOSE DEVICE Routine 03/29/2025 5 :27 PM BRUSH HOLDER INSPECTOR POCT GLUCOSE DEVICE Routine 03/29/2025 3 :51 PM BRUSH HOLDER INSPECTOR POCT GLUCOSE DEVICE Routine 03/29/2025 2 :24 PM BRUSH HOLDER INSPECTOR POCT GLUCOSE DEVICE Routine 03/29/2025 1 2:22 PM BRUSH HOLDER INSPECTOR BLOOD GAS, ARTERIAL STAT 03/29/2025 1 1:27 AM BRUSH HOLDER INSPECTOR POCT GLUCOSE DEVICE Routine 03/29/2025 9 :35 AM BRUSH HOLDER INSPECTOR POCT GLUCOSE DEVICE Routine 03/29/2025 8 :40 AM BRUSH HOLDER INSPECTOR POCT GLUCOSE DEVICE Routine 03/29/2025 8 :24 AM BRUSH HOLDER INSPECTOR POCT GLUCOSE DEVICE Routine 03/29/2025 8 :06 AM BRUSH HOLDER INSPECTOR HEMOGLOBIN A1C Add-On 03/29/2025 7:40 AM BRUSH HOLDER INSPECTOR EGFR Routine 03/29/2025 7:40 AM BRUSH HOLDER INSPECTOR DIFFERENTIAL AUTO Routine 03/29/2025 7:4 0 AM BRUSH HOLDER INSPECTOR CBC WITH AUTO DIFFERENTIAL Routine 03/29/2025 7:40 AM BRUSH HOLDER INSPECTOR PHOSPHORUS Routine 03/29/2025 7:40 AM BRUSH HOLDER INSPECTOR MAGNESIUM Routine 03/29/2025 7:40 AM BRUSH HOLDER INSPECTOR COMPREHENSIVE METABOLIC PANEL Routine 03/29/2025 7:40 AM BRUSH HOLDER INSPECTOR BLOOD CULTURE Routine 03/29/2025 7:40 AM BRUSH HOLDER INSPECTOR BLOOD CULTURE Routine 03/29/2025 7:40 AM BRUSH HOLDER INSPECTOR POCT GLUCOSE DEVICE Routine 03/29/2025 4 :53 AM BRUSH HOLDER INSPECTOR POCT GLUCOSE DEVICE Routine 03/29/2025 4 :38 AM BRUSH HOLDER INSPECTOR POCT GLUCOSE DEVICE Routine 03/29/2025 4 :28 AM BRUSH HOLDER INSPECTOR POCT GLUCOSE DEVICE Routine 03/29/2025 2 :54 [address]DER [address] SOFT TISSUE NECK W CONTRAST ED 03/28/2025 10:[address] CHEST PE W CONTRAST ED 03/28/2025 10:20 PM BRUSH HOLDER INSPECTOR PRO B-TYPE NATRIURETIC PEPTIDE STAT 03/28/2025 8:20 PM BRUSH HOLDER INSPECTOR HCG, BLOOD, QUANTITATIVE Add-On 03/28/2025 8:20 PM BRUSH HOLDER INSPECTOR BLOOD GAS, VENOUS Routine 03/28/2025 8:2 0 PM BRUSH HOLDER INSPECTOR XR CHEST 1 VIEW ED 03/28/2025 6:52 PM BRUSH HOLDER INSPECTOR XR FOOT RIGHT 2 VIEWS ED 03/28/2025 6:52 PM BRUSH HOLDER INSPECTOR EGFR STAT 03/28/2025 4:36 PM BRUSH HOLDER INSPECTOR DIFFERENTIAL AUTO STAT 03/28/2025 4:3 6 PM BRUSH HOLDER INSPECTOR COMPREHENSIVE METABOLIC PANEL STAT 03/28/2025 4:36 PM BRUSH HOLDER INSPECTOR CBC WITH AUTO DIFFERENTIAL STAT 03/28/2025 4:36 PM BRUSH HOLDER INSPECTOR ECG 12-LEAD STAT 03/28/2025 3:26 PM BRUSH HOLDER INSPECTOR POCT LIPID PANEL Routine 02/03/2025 2:10 PM CDT Dyslipidemia ALBUMIN CREATININE RATIO, URINE Routine 04/26/2024 10:55 AM BRUSH HOLDER INSPECTOR Type 2 diabetes mellitus with other circulatory complication, with long-term current use of insulin (HCC) RETINAVUE SCANNER - OU - BOTH EYES Routine 04/19/2024 Type 2 diabetes mellitus with other circulatory complication, with long-term current use of insulin (HCC) from Last 3 Months or Most Recently Relevant to Health Maintenance Results * POCT glucose (04/07/2025 1:03 PM BRUSH HOLDER INSPECTOR) Glucose, POC 164 70 - 199 mg/dL Blood 04/07/2025 1:03 PM BRUSH HOLDER INSPECTOR 04/07/2025 1:03 PM BRUSH HOLDER INSPECTOR Keagan Doty MD LAB POCT ORDERABLES - DEVICE Final Result Performing Organization Address [facility] Co de Phone Number JUSTINE [phone] [address] Department [place] [address] * POCT glucose (04/07/2025 7:33 AM BRUSH HOLDER INSPECTOR) Glucose, POC 176 70 - 199 mg/dL Blood 04/07/2025 7:33 AM BRUSH HOLDER INSPECTOR 04/07/2025 7:33 AM BRUSH HOLDER INSPECTOR us Keagan Doty MD LAB POCT ORDERABLES - DEVICE Final Result Performing Organization Address [facility]/ZIP Co de Phone Number JUSTINE PENA [phone] [address] [place] [address] * (ABNORMAL) eGFR (04/07/2025 5:43 AM BRUSH HOLDER INSPECTOR) eGFR 50(L) >=60 mL/min/1. 73 m2 Comment: Interpretive Data [...] Current interpretive data was last reviewed 2021. Blood 04/07/2025 5:43 AM BRUSH HOLDER INSPECTOR 04/07/2025 5:52 AM BRUSH HOLDER INSPECTOR Keagan Doty MD LAB BLOOD ORDERABLES F inal Result JUSTINE PENA [id number] [address] [place] [address] * (ABNORMAL) Renal function panel (04/07/2025 5:43 AM BRUSH HOLDER INSPECTOR) Sodium 136 135 - 145 mmol/L Potassium, pl 3.7 3.3 - 4.9 mmol/L [facility] Chloride 89(L) 97 - 110 mmol/L [facility] CO2 34(H) 22 - 32 mmol/L [facility] Anion gap 13 2 - 15 mmol/L [facility] BUN 43(H) 6 - 25 mg/dL [facility] Creatinine 1.37(H) 0.60 - 1.10 mg/dL [facility] Glucose 220(H) 70 - 199 mg/dL [facility] Comment: Interpretive Data Fasting glucose >/= 126 [...] Current interpretive data was last revised 2022. Calcium 9.5 8.5 - 10.3 mg/dL [facility] Phosphorus, pl 4.3 2.3 - 4.5 mg/dL [facility] Albumin 3.3(L) 3.5 - 5.0 g/dL [facility] Blood 04/07/2025 5:43 AM BRUSH HOLDER INSPECTOR 04/07/2025 5:52 AM BRUSH HOLDER INSPECTOR Keagan Doty MD LAB BLOOD ORDERABLES F inal Result Performing Organization Address City/[facility]/ZIP Co de Phone Number JUSTINE JEAN [phone] [address] [place] [address] * (ABNORMAL) POCT glucose (04/06/2025 8:35 PM BRUSH HOLDER INSPECTOR) Glucose, POC 284(H) 70 - 199 mg/dL Blood 04/06/2025 8:35 PM BRUSH HOLDER INSPECTOR 04/06/2025 8:35 PM BRUSH HOLDER INSPECTOR Keagan Doty MD LAB POCT ORDERABLES - DEVICE Final Result Performing Organization Address City/[facility]/ZIP Co de Phone Number JAMESDONOVAN PENA [id number] [address] [place] [address] * (ABNORMAL) POCT glucose (04/06/2025 5:26 PM BRUSH HOLDER INSPECTOR) Glucose, POC 214(H) 70 - 199 mg/dL Blood 04/06/2025 5:26 PM BRUSH HOLDER INSPECTOR 04/06/2025 5:26 PM BRUSH HOLDER INSPECTOR us Keagan Doty MD LAB POCT ORDERABLES - DEVICE Final Result Performing Organization Address [facility] de Phone Number JUSTINE PENA [id number] [address] [facility] [employer] [place], [place] [id number] * (ABNORMAL) POCT glucose (04/06/2025 12:13 PM BRUSH HOLDER INSPECTOR) Glucose, POC 213(H) 70 - 199 mg/dL Blood 04/06/2025 12:1 3 PM BRUSH HOLDER INSPECTOR 04/06/2025 12:13 PM BRUSH HOLDER INSPECTOR us Keagan Doty MD LAB POCT ORDERABLES - DEVICE Final Result Performing Organization Address [facility] de Phone Number JAMESDONOVAN PENA [address] [address] [place] [address] * (ABNORMAL) POCT glucose (04/06/2025 7:34 AM BRUSH HOLDER INSPECTOR) Pathologist [facility] Glucose, POC 200(H) 70 - 199 mg/dL Blood 04/06/2025 7:34 AM BRUSH HOLDER INSPECTOR 04/06/2025 7:34 AM BRUSH HOLDER INSPECTOR us Keagan Doty MD LAB POCT ORDERABLES - DEVICE Final Result Performing Organization Address [facility] de Phone Number JUSTINE PENA [address] [address] [facility] [employer] [place] [address] * (ABNORMAL) eGFR (04/06/2025 5:58 AM BRUSH HOLDER INSPECTOR) Pathologist [facility] eGFR 50(L) >=60 mL/min/1. 73 m2 Comment: Interpretive Data [...] Current interpretive data was last reviewed 2021. Blood 04/06/2025 5:58 AM BRUSH HOLDER INSPECTOR 04/06/2025 6:25 AM BRUSH HOLDER INSPECTOR us Keagan Doty MD LAB BLOOD ORDERABLES F inal Result [facility] [id number] [address] [place] [address] * (ABNORMAL) Renal function panel (04/06/2025 5:58 AM BRUSH HOLDER INSPECTOR) Sodium 135 135 - 145 mmol/L Potassium, pl 3.8 3.3 - 4.9 mmol/L [facility] Chloride 88(L) 97 - 110 mmol/L [facility] CO2 33(H) 22 - 32 mmol/L [facility] Anion gap 14 2 - 15 mmol/L [facility] BUN 43(H) 6 - 25 mg/dL [facility] Creatinine 1.36(H) 0.60 - 1.10 mg/dL [facility] Glucose 210(H) 70 - 199 mg/dL [facility] Comment: Interpretive Data Fasting glucose >/= 126 [...] Current interpretive data was last revised 2022. Calcium 10.0 8.5 - 10.3 mg/dL [facility] Phosphorus, pl 4.2 2.3 - 4.5 mg/dL [facility] Albumin 3.6 3.5 - 5.0 g/dL [facility] Blood 04/06/2025 5:58 AM BRUSH HOLDER INSPECTOR 04/06/2025 6:25 AM BRUSH HOLDER INSPECTOR Keagan Doty MD LAB BLOOD ORDERABLES F inal Result Performing Organization Address City/[facility]/ZIP Co de Phone Number JUSTINE PENA [address] [address] [facility] [employer] [place] [address] * (ABNORMAL) POCT glucose (04/06/2025 2:16 AM BRUSH HOLDER INSPECTOR) Glucose, POC 202(H) 70 - 199 mg/dL Blood 04/06/2025 2:16 AM BRUSH HOLDER INSPECTOR 04/06/2025 2:16 AM BRUSH HOLDER INSPECTOR Keagan Doty MD LAB POCT ORDERABLES - DEVICE Final Result Performing Organization Address [facility] Co de Phone Number JAMESDONOVAN PENA [address] [address] [employer] [place] [address] * (ABNORMAL) POCT glucose (04/05/2025 8:39 PM BRUSH HOLDER INSPECTOR) Glucose, POC 270(H) 70 - 199 mg/dL Blood 04/05/2025 8:39 PM BRUSH HOLDER INSPECTOR 04/05/2025 8:39 PM BRUSH HOLDER INSPECTOR Keagan Doty MD LAB POCT ORDERABLES - DEVICE Final Result Performing Organization Address [facility] Co de Phone Number JUSTINE PENA [address] [address] [facility] [place] [address] * (ABNORMAL) POCT glucose (04/05/2025 4:54 PM BRUSH HOLDER INSPECTOR) Glucose, POC 227(H) 70 - 199 mg/dL Blood 04/05/2025 4:54 PM BRUSH HOLDER INSPECTOR 04/05/2025 4:54 PM BRUSH HOLDER INSPECTOR us Keagan Doty MD LAB POCT ORDERABLES - DEVICE Final Result Performing Organization Address City/[facility]/ZIP Co de Phone Number JUSTINE PENA [address] [address] [place] [address] * (ABNORMAL) POCT glucose (04/05/2025 12:20 PM BRUSH HOLDER INSPECTOR) Glucose, POC 277(H) 70 - 199 mg/dL Blood 04/05/2025 12:2 0 PM BRUSH HOLDER INSPECTOR 04/05/2025 12:20 PM BRUSH HOLDER INSPECTOR us Keagan Doty MD LAB POCT ORDERABLES - DEVICE Final Result Performing Organization Address [facility] Co de Phone Number JUSTINE PENA [address] [address] [place] [employer] [place] [address] * (ABNORMAL) eGFR (04/05/2025 10:34 AM BRUSH HOLDER INSPECTOR) Pathologist [facility] eGFR 45(L) >=60 mL/min/1. 73 m2 Comment: Interpretive Data [...] of Race in Diagnosing Kidney Disease, JASN 202). The CKD-EPI equation should not be used for patients with unstable renal function and has not been validated in children and those over 70. Current interpretive data was last reviewed 2021. Blood 04/05/2025 10:3 4 AM BRUSH HOLDER INSPECTOR 04/05/2025 10:37 AM BRUSH HOLDER INSPECTOR Keagan Doty MD LAB BLOOD ORDERABLES F inal Result [facility] [id number] [address] [place] [address] * (ABNORMAL) Renal function panel (04/05/2025 10:34 AM BRUSH HOLDER INSPECTOR) Sodium 134(L) 135 - 145 mmol/L Potassium, pl 3.7 3.3 - 4.9 mmol/L [facility] Chloride 88(L) 97 - 110 mmol/L [facility] CO2 36(H) 22 - 32 mmol/L [facility] Anion gap 10 2 - 15 mmol/L [facility] BUN 40(H) 6 - 25 mg/dL [facility] Creatinine 1.50(H) 0.60 - 1.10 mg/dL [facility] Glucose 285(H) 70 - 199 mg/dL [facility] Comment: Interpretive Data Fasting glucose >/= 126 [...] Current interpretive data was last revised 2022. Calcium 9.5 8.5 - 10.3 mg/dL [facility] Phosphorus, pl 4.3 2.3 - 4.5 mg/dL [facility] Albumin 3.4(L) 3.5 - 5.0 g/dL [facility] Blood 04/05/2025 10:3 4 AM BRUSH HOLDER INSPECTOR 04/05/2025 10:37 AM BRUSH HOLDER INSPECTOR Keagan Doty MD LAB BLOOD ORDERABLES F inal Result JUSTINE PENA [address] [address] [place] [employer] [place] [address] * (ABNORMAL) POCT glucose (04/05/2025 7:40 AM BRUSH HOLDER INSPECTOR) Glucose, POC 257(H) 70 - 199 mg/dL Blood 04/05/2025 7:40 AM BRUSH HOLDER INSPECTOR 04/05/2025 7:40 AM BRUSH HOLDER INSPECTOR Keagan Doty MD LAB POCT ORDERABLES - DEVICE Final Result Performing Organization Address City/[facility] Co de Phone Number JUSTINE PENA [address] [address] [place] [address] * (ABNORMAL) Differential, auto (04/05/2025 6:41 AM BRUSH HOLDER INSPECTOR) Neutrophil abs 4.93 1.50 - 6.50 K/cumm Imm gran abs 0.03 0.00 - 0.10 K/cumm [facility] Lymphocyte abs 3.13 0.80 - 3.30 K/cumm [facility] Monocyte abs 0.91(H) 0.20 - 0.80 K/cumm [facility] Eosinophil abs 0.31 0.00 - 0.50 K/cumm [facility] Basophil abs 0.08 0.00 - 0.10 K/cumm [facility] Neutrophil pct 52.5 % [facility] Comment: Interpretive Data Percent cell count reference ranges are not reported, since discordance with absolute values may lead to misinterpretation of CBC data. Current Interpretive Data was last revised on 2017. Imm gran pct 0.3 % [facility] Comment: Interpretive Data Percent cell count reference ranges are not reported, since discordance with absolute values may lead to misinterpretation of CBC data. Current Interpretive Data was last revised on 2017. Lymphocyte pct 33.3 % [facility] Comment: Interpretive Data Percent cell count reference ranges are not reported, since discordance with absolute values may lead to misinterpretation of CBC data. Current Interpretive Data was last revised on 2017. Monocyte pct 9.7 % [facility] Comment: Interpretive Data Percent cell count reference ranges are not reported, since discordance with absolute values may lead to misinterpretation of CBC data. Current Interpretive Data was last revised on 2017. Eosinophil pct 3.3 % [facility] Comment: Interpretive Data Percent cell count reference ranges are not reported, since discordance with absolute values may lead to misinterpretation of CBC data. Current Interpretive Data was last revised on 2017. Basophil pct 0.9 % [facility] Comment: Interpretive Data Percent cell count reference ranges are not reported, since discordance with absolute values may lead to misinterpretation of CBC data. Current Interpretive Data was last revised on 2017. Blood 04/05/2025 6:41 AM BRUSH HOLDER INSPECTOR 04/05/2025 6:57 AM BRUSH HOLDER INSPECTOR Keagan Doty MD LAB BLOOD ORDERABLES F inal Result [facility] [address] [address] [place] [address] * (ABNORMAL) CBC with auto differential (04/05/2025 6:41 AM BRUSH HOLDER INSPECTOR) WBC 9.39 3.80 - 9.90 K/cumm Hgb 13.1 11.9 - 15.5 g/dL [facility] Hct 42.6 35.6 - 45.5 % [facility] Plt 283 150 - 400 K/cumm [facility] MPV 11.0 9.1 - 12.3 fL [facility] RBC 4.99 3.90 - 5.20 M/cumm [facility] MCV 85.4 81.3 - 96.4 fL [facility] MCH 26.3(L) 27.1 - 33.3 pg [facility] MCHC 30.8(L) 32.3 - 35.7 g/dL [facility] RDW CV 16.0(H) 11.1 - 14.9 % [facility] RDW SD 49.2(H) 35.7 - 48.1 fL [facility] NRBC abs 0.00 0.00 - 0.01 K/cumm [facility] Blood 04/05/2025 6:41 AM BRUSH HOLDER INSPECTOR 04/05/2025 6:57 AM BRUSH HOLDER INSPECTOR us Keagan Doty MD LAB BLOOD ORDERABLES F inal Result Performing Organization Address [facility] Co de Phone Number JUSTINE [address] [address] [facility] [employer] [place], [place] [id number] * (ABNORMAL) POCT glucose (04/05/2025 1:26 AM BRUSH HOLDER INSPECTOR) Glucose, POC 234(H) 70 - 199 mg/dL Blood 04/05/2025 1:26 AM BRUSH HOLDER INSPECTOR 04/05/2025 1:26 AM BRUSH HOLDER INSPECTOR us Keagan Doty MD LAB POCT ORDERABLES - DEVICE Final Result Performing Organization Address [facility] de Phone Number JAMESDONOVAN [address] [address] [employer] [place] [address] * (ABNORMAL) POCT glucose (04/04/2025 9:33 PM BRUSH HOLDER INSPECTOR) Glucose, POC 262(H) 70 - 199 mg/dL Blood 04/04/2025 9:33 PM BRUSH HOLDER INSPECTOR 04/04/2025 9:33 PM BRUSH HOLDER INSPECTOR us Keagan Doty MD LAB POCT ORDERABLES - DEVICE Final Result Performing Organization Address [facility] de Phone Number JUSTINE [address] [address] [facility] [employer] [place] [address] * (ABNORMAL) POCT glucose (04/04/2025 5:21 PM BRUSH HOLDER INSPECTOR) Glucose, POC 282(H) 70 - 199 mg/dL Blood 04/04/2025 5:21 PM BRUSH HOLDER INSPECTOR 04/04/2025 5:21 PM BRUSH HOLDER INSPECTOR Keagan Doty MD LAB POCT ORDERABLES - DEVICE Final Result Performing Organization Address [facility] Co de Phone Number JUSTINE PENA [address] [address] [facility] [employer] [place] [address] * (ABNORMAL) POCT glucose (04/04/2025 12:38 PM BRUSH HOLDER INSPECTOR) Glucose, POC 210(H) 70 - 199 mg/dL Blood 04/04/2025 12:3 8 PM BRUSH HOLDER INSPECTOR 04/04/2025 12:38 PM BRUSH HOLDER INSPECTOR Keagan Doty MD LAB POCT ORDERABLES - DEVICE Final Result Performing Organization Address [facility] Co de Phone Number JUSTINE PENA [address] [address] [facility] [employer] [place] [address] * (ABNORMAL) POCT glucose (04/04/2025 7:50 AM BRUSH HOLDER INSPECTOR) Glucose, POC 230(H) 70 - 199 mg/dL Blood 04/04/2025 7:50 AM BRUSH HOLDER INSPECTOR 04/04/2025 7:50 AM BRUSH HOLDER INSPECTOR Keagan Doty MD LAB POCT ORDERABLES - DEVICE Final Result Performing Organization Address [facility] Co de Phone Number JUSTINE PENA [address] [address] [facility] [employer] [place], [place] [address] * (ABNORMAL) eGFR (04/04/2025 6:58 AM BRUSH HOLDER INSPECTOR) eGFR 49(L) >=60 mL/min/1. 73 m2 Comment: Interpretive Data [...] of Race in Diagnosing Kidney Disease, JASN 202). The CKD-EPI equation should not be used for patients with unstable renal function and has not been validated in children and those over 70. Current interpretive data was last reviewed 2021. Blood 04/04/2025 6:58 AM BRUSH HOLDER INSPECTOR 04/04/2025 7:05 AM BRUSH HOLDER INSPECTOR us Keagan Doty MD LAB BLOOD ORDERABLES F inal Result JUSTINE [address] [address] [place] [address] * (ABNORMAL) Differential, auto (04/04/2025 6:58 AM BRUSH HOLDER INSPECTOR) Neutrophil abs 3.62 1.50 - 6.50 K/cumm Imm gran abs 0.03 0.00 - 0.10 K/cumm [facility] Lymphocyte abs 2.99 0.80 - 3.30 K/cumm [facility] Monocyte abs 0.92(H) 0.20 - 0.80 K/cumm [facility] Eosinophil abs 0.27 0.00 - 0.50 K/cumm [facility] Basophil abs 0.08 0.00 - 0.10 K/cumm [facility] Neutrophil pct 45.8 % [facility] Comment: Interpretive Data Percent cell count reference ranges are not reported, since discordance with absolute values may lead to misinterpretation of CBC data. Current Interpretive Data was last revised on 2017. Imm gran pct 0.4 % [facility] Comment: Interpretive Data Percent cell count reference ranges are not reported, since discordance with absolute values may lead to misinterpretation of CBC data. Current Interpretive Data was last revised on 2017. Lymphocyte pct 37.8 % [facility] Comment: Interpretive Data Percent cell count reference ranges are not reported, since discordance with absolute values may lead to misinterpretation of CBC data. Current Interpretive Data was last revised on 2017. Monocyte pct 11.6 % [facility] Comment: Interpretive Data Percent cell count reference ranges are not reported, since discordance with absolute values may lead to misinterpretation of CBC data. Current Interpretive Data was last revised on 2017. Eosinophil pct 3.4 % [facility] Comment: Interpretive Data Percent cell count reference ranges are not reported, since discordance with absolute values may lead to misinterpretation of CBC data. Current Interpretive Data was last revised on 2017. Basophil pct 1.0 % [facility] Comment: Interpretive Data Percent cell count reference ranges are not reported, since discordance with absolute values may lead to misinterpretation of CBC data. Current Interpretive Data was last revised on 2017. Blood 04/04/2025 6:58 AM BRUSH HOLDER INSPECTOR 04/04/2025 7:06 AM BRUSH HOLDER INSPECTOR Keagan Doty MD LAB BLOOD ORDERABLES F inal Result [facility] [address] [address] [place] [address] * (ABNORMAL) CBC with auto differential (04/04/2025 6:58 AM BRUSH HOLDER INSPECTOR) WBC 7.91 3.80 - 9.90 K/cumm Hgb 12.5 11.9 - 15.5 g/dL [facility] Hct 39.3 35.6 - 45.5 % [facility] Plt 252 150 - 400 K/cumm [facility] MPV 10.4 9.1 - 12.3 fL [facility] RBC 4.73 3.90 - 5.20 M/cumm [facility] MCV 83.1 81.3 - 96.4 fL [facility] MCH 26.4(L) 27.1 - 33.3 pg [facility] MCHC 31.8(L) 32.3 - 35.7 g/dL [facility] RDW CV 16.0(H) 11.1 - 14.9 % [facility] RDW SD 47.8 35.7 - 48.1 fL [facility] NRBC abs 0.00 0.00 - 0.01 K/cumm [facility] Blood 04/04/2025 6:58 AM BRUSH HOLDER INSPECTOR 04/04/2025 7:06 AM BRUSH HOLDER INSPECTOR us Keagan Doty MD LAB BLOOD ORDERABLES F inal Result Performing Organization Address City/[facility]/ZIP Co de Phone Number JUSTINE PENA [address] [address] [facility] [place] [address] * Magnesium (04/04/2025 6:58 AM BRUSH HOLDER INSPECTOR) Pathologist [facility] Magnesium 1.9 1.4 - 2.5 mg/dL Blood 04/04/2025 6:58 AM BRUSH HOLDER INSPECTOR 04/04/2025 7:05 AM BRUSH HOLDER INSPECTOR Keagan Doty MD LAB BLOOD ORDERABLES F inal Result Performing Organization Address [facility] de Phone Number JUSTINE EPNA [address] [address] [facility] [place] [address] * (ABNORMAL) Renal function panel (04/04/2025 6:58 AM BRUSH HOLDER INSPECTOR) Pathologist [facility] Sodium 135 135 - 145 mmol/L Potassium, pl 3.8 3.3 - 4.9 mmol/L [facility] Chloride 88(L) 97 - 110 mmol/L [facility] CO2 36(H) 22 - 32 mmol/L [facility] Anion gap 11 2 - 15 mmol/L [facility] BUN 37(H) 6 - 25 mg/dL [facility] Creatinine 1.39(H) 0.60 - 1.10 mg/dL [facility] Glucose 248(H) 70 - 199 mg/dL [facility] Comment: Interpretive Data Fasting glucose >/= 126 [...] Current interpretive data was last revised 2022. Calcium 9.3 8.5 - 10.3 mg/dL [facility] Phosphorus, pl 3.9 2.3 - 4.5 mg/dL [facility] Albumin 3.5 3.5 - 5.0 g/dL [facility] Blood 04/04/2025 6:58 AM BRUSH HOLDER INSPECTOR 04/04/2025 7:05 AM BRUSH HOLDER INSPECTOR Keagan Doty MD LAB BLOOD ORDERABLES F inal Result Performing Organization Address City/[facility]/ZIP Co de Phone Number JAMESDONOVAN [address] [address] [facility] [employer] [place] [address] * (ABNORMAL) POCT glucose (04/03/2025 8:22 PM BRUSH HOLDER INSPECTOR) Glucose, POC 313(H) 70 - 199 mg/dL Blood 04/03/2025 8:22 PM BRUSH HOLDER INSPECTOR 04/03/2025 8:22 PM BRUSH HOLDER INSPECTOR Keagan Doty MD LAB POCT ORDERABLES - DEVICE Final Result Performing Organization Address [facility] Co de Phone Number JAMESDONOVAN [address] [address] [facility] [employer] [place] [address] * (ABNORMAL) POCT glucose (04/03/2025 5:28 PM BRUSH HOLDER INSPECTOR) Glucose, POC 242(H) 70 - 199 mg/dL Blood 04/03/2025 5:28 PM BRUSH HOLDER INSPECTOR 04/03/2025 5:28 PM BRUSH HOLDER INSPECTOR Keagan Doty MD LAB POCT ORDERABLES - DEVICE Final Result Performing Organization Address [facility] Co de Phone Number JUSTINE [address] [address] [facility] [place] [address] * POCT glucose (04/03/2025 12:18 PM BRUSH HOLDER INSPECTOR) Glucose, POC 184 70 - 199 mg/dL Blood 04/03/2025 12:1 8 PM BRUSH HOLDER INSPECTOR 04/03/2025 12:18 PM BRUSH HOLDER INSPECTOR Keagan Doty MD LAB POCT ORDERABLES - DEVICE Final Result Performing Organization Address [facility] de Phone Number JUSTINE [address] [address] [facility] [place] [address] * POCT glucose (04/03/2025 7:34 AM BRUSH HOLDER INSPECTOR) Glucose, POC 178 70 - 199 mg/dL Blood 04/03/2025 7:34 AM BRUSH HOLDER INSPECTOR 04/03/2025 7:34 AM BRUSH HOLDER INSPECTOR Keagan Doty MD LAB POCT ORDERABLES - DEVICE Final Result Performing Organization Address [facility] de Phone Number JAMESDONOVAN [address] [address] [place] [address] * Magnesium (04/03/2025 6:15 AM BRUSH HOLDER INSPECTOR) [facility] Magnesium 1.8 1.4 - 2.5 mg/dL Blood 04/03/2025 6:15 AM BRUSH HOLDER INSPECTOR 04/03/2025 6:15 AM BRUSH HOLDER INSPECTOR Brittnee Xiong MD LAB BLOOD ORDERABLES Final Re sult Performing Organization Address [facility] de Phone Number [facility] [address] [address] [facility] [place] [address] * (ABNORMAL) POCT glucose (04/02/2025 8:42 PM BRUSH HOLDER INSPECTOR) Glucose, POC 242(H) 70 - 199 mg/dL Blood 04/02/2025 8:42 PM BRUSH HOLDER INSPECTOR 04/02/2025 8:42 PM BRUSH HOLDER INSPECTOR Keagan Doty MD LAB POCT ORDERABLES - [place] [address] [address] [place] [address] * POCT glucose (04/02/2025 4:30 PM BRUSH HOLDER INSPECTOR) Glucose, POC 194 70 - 199 mg/dL Blood 04/02/2025 4:30 PM BRUSH HOLDER INSPECTOR 04/02/2025 4:30 PM BRUSH HOLDER INSPECTOR us Keagan Andrew Doty MD LAB POCT ORDERABLES - DEVICE Final Result Performing Organization Address [facility] Co de Phone Number JUSTINE PENA [address] [address] [place] [employer] [place] [address] * US Kidney Complete (04/02/2025 2:53 PM BRUSH HOLDER INSPECTOR) Anatomical Region Laterality Modality Kidney N/A Ultrasound 04/02/2025 3:02 PM BRUSH HOLDER INSPECTOR Impressions 04/02/2025 3:02 PM BRUSH HOLDER INSPECTOR 1. No hydronephrosis in either kidney. 2. Incidentally noted diffuse hepatic steatosis. Electronically signed by: Harpal Ricks M.D. Narrative 04/02/2025 3:02 PM BRUSH HOLDER INSPECTOR EXAMINATION: COMPLETE RENAL SONOGRAM HISTORY: Chronic kidney disease. COMPARISON: MRI of the lumbar spine dated 08/26/[address] of the chest, abdomen, pelvis dated 10/14/2023. FINDINGS: Limited examination of the kidneys due to patient body habitus. Kidneys: The echogenicity of both kidneys is normal. The kidneys are normal in size. The right kidney measures 11.4 cm in length, and the left, 11.3 cm in length. There is no hydronephrosis in either kidney. There are no renal calculi visualized. Suboptimally evaluated cyst in the interpolar region of the left kidney (image 410), which measures 1.8 x 1.5 x 1.8 cm. Bladder: The urinary bladder is normal. Other: Incidentally noted diffuse hepatic steatosis. Procedure Note Harpal Ricks MD - 04/02/2025 EXAMINATION: COMPLETE RENAL SONOGRAM HISTORY: Chronic kidney disease. COMPARISON: MRI of the lumbar spine dated 08/26/[address] of the chest, abdomen, pelvis dated 10/14/2023. FINDINGS: Limited examination of the kidneys due to patient body habitus. Kidneys: The echogenicity of both kidneys is normal. The kidneys are normal in size. The right kidney measures 11.4 cm in length, and the left, 11.3 cm in length. There is no hydronephrosis in either kidney. There are no renal calculi visualized. Suboptimally evaluated cyst in the interpolar region of the left kidney (image 410), which measures 1.8 x 1.5 x 1.8 cm. Bladder: The urinary bladder is normal. Other: Incidentally noted diffuse hepatic steatosis. IMPRESSION: 1. No hydronephrosis in either kidney. 2. Incidentally noted diffuse hepatic steatosis. Electronically signed by: Harpal Ricks M.D. Kimberly Liao MD IMG US PROCEDURES Final Resul t * (ABNORMAL) POCT glucose (04/02/2025 12:11 PM BRUSH HOLDER INSPECTOR) Glucose, POC 230(H) 70 - 199 mg/dL Blood 04/02/2025 12:1 1 PM BRUSH HOLDER INSPECTOR 04/02/2025 12:11 PM BRUSH HOLDER INSPECTOR Keagan Doty MD LAB POCT ORDERABLES - DEVICE Final Result Performing Organization Address [facility] Co de Phone Number [facility] [address] [address] [place] [address] * POCT glucose (04/02/2025 7:32 AM BRUSH HOLDER INSPECTOR) Glucose, POC 191 70 - 199 mg/dL Blood 04/02/2025 7:32 AM BRUSH HOLDER INSPECTOR 04/02/2025 7:32 AM BRUSH HOLDER INSPECTOR Keagan Dtoy MD LAB POCT ORDERABLES - DEVICE Final Result Performing Organization Address [facility] Co de Phone Number JUSTINE PENA [address] [address] [place] [address] * (ABNORMAL) eGFR (04/02/2025 5:10 AM BRUSH HOLDER INSPECTOR) eGFR 53(L) >=60 mL/min/1. 73 m2 Comment: Interpretive Data [...] Current interpretive data was last reviewed 2021. Blood 04/02/2025 5:10 AM BRUSH HOLDER INSPECTOR 04/02/2025 5:37 AM BRUSH HOLDER INSPECTOR us Brittnee Xiong MD LAB BLOOD ORDERABLES Final Re sult Performing Organization Address [facility] Co de Phone Number JUSTINE PENA [address] [address] [facility] [place] [address] * (ABNORMAL) Pro B-type natriuretic peptide (04/02/2025 5:10 AM BRUSH HOLDER INSPECTOR) NT-proBNP 1,212(H) <=300 pg/mL Comment: Interpretive Comments: A. Dyspnea in Acute Care Setting All Ages: < 300 pg/ml, acute heart failure unlikely. < 50 yrs: 300 - 450 pg/ml, further investigation warranted. > 450 pg/ml, acute heart failure likely. 50 - 74 yrs: 300 - 900 pg/ml, further investigation warranted. > 900 pg/ml, acute heart failure likely . > or = 75 yrs: 450 - 1800 pg/ml, further investigation warranted. > 1800 pg/ml, acute heart failure likely. B. Non-acute Setting < 75 yrs < 125 pg/ml, rules out heart failure. > or = 125 pg/ml, further investigation warranted. > or = 75 yrs < 450 pg/ml, rules out heart failure. > or = 450 pg/ml, further investigation warranted. - Knowledge of each individual patient's NT-proBNP range may be more useful than using similar cut-points for every patient. Please note that marked elevations in NT-proBNP levels may be observed in state other than Left Ventricular Congestive Failure, including: acute coronary syndromes, right heart strain/failure (including pulmonary embolism and cor pulmonale), critical illness, renal failure, as well as advanced age. - References: 1. Jazmyn RENDON et.al. Eur Heart J. 2006:27:330-337. 2. Everardo RW, Newton GALLARDO. J. AM Maribeth Cardiol: Cardiovasc Imag. 2009;2: 216- 225. Interpretive Data Last Revised Date: 2017. Blood 04/02/2025 5:10 AM BRUSH HOLDER INSPECTOR 04/02/2025 5:27 AM BRUSH HOLDER INSPECTOR Kimberly Liao MD LAB BLOOD ORDERABLES Final Re sult Performing Organization Address [facility] de Phone [place] [address] [address] [place] [address] * Magnesium (04/02/2025 5:10 AM BRUSH HOLDER INSPECTOR) [facility] Signature Magnesium 1.8 1.4 - 2.5 mg/dL Blood 04/02/2025 5:10 AM BRUSH HOLDER INSPECTOR 04/02/2025 5:27 AM BRUSH HOLDER INSPECTOR Brittnee Xiong MD LAB BLOOD ORDERABLES Final Re sult Performing Organization Address [facility] [place] [address] [address] Department [place] [address] * (ABNORMAL) Renal function panel (04/02/2025 5:10 AM BRUSH HOLDER INSPECTOR) Sodium 135 135 - 145 mmol/L Potassium, pl 4.2 3.3 - 4.9 mmol/L [facility] Chloride 93(L) 97 - 110 mmol/L [facility] CO2 30 22 - 32 mmol/L [facility] Anion gap 12 2 - 15 mmol/L [facility] BUN 35(H) 6 - 25 mg/dL [facility] Creatinine 1.30(H) 0.60 - 1.10 mg/dL [facility] Glucose 239(H) 70 - 199 mg/dL [facility] Comment: Interpretive Data Fasting glucose >/= 126 [...] Current interpretive data was last revised 2022. Calcium 9.7 8.5 - 10.3 mg/dL [facility] Phosphorus, pl 4.0 2.3 - 4.5 mg/dL [facility] Albumin 3.5 3.5 - 5.0 g/dL [facility] Blood 04/02/2025 5:10 AM BRUSH HOLDER INSPECTOR 04/02/2025 5:27 AM BRUSH HOLDER INSPECTOR Brittnee Xiong MD LAB BLOOD ORDERABLES Final Re sult [address] [address] [address] [place] [address] * (ABNORMAL) POCT glucose (04/01/2025 8:31 PM BRUSH HOLDER INSPECTOR) Glucose, POC 232(H) 70 - 199 mg/dL Blood 04/01/2025 8:31 PM BRUSH HOLDER INSPECTOR 04/01/2025 8:31 PM BRUSH HOLDER INSPECTOR Brittnee Xiong MD LAB POCT ORDERABLES - DEVICE Final Result Performing Organization Address [facility] Phone Number [facility] [address] [facility] [place] [address] * (ABNORMAL) Protein / creatinine ratio, urine, random (04/01/2025 7:42 PM BRUSH HOLDER INSPECTOR) Protein, ur, quant 312.3 mg/dL Comment: Interpretive Data No reference range established. Current interpretive data was last revised 2018. Creatinine Ur 82.0 mg/dL [facility] Comment: Interpretive Data No reference range established. Current interpretive data was last revised 2018. Protein/creatinin e ratio 3,808.5(H ) 0.0 - 180.0 mg/g CR [facility] Urine 04/01/2025 7:42 PM BRUSH HOLDER INSPECTOR 04/01/2025 7:57 PM BRUSH HOLDER INSPECTOR Kimberly Liao MD LAB URINE ORDERABLES Final Re sult Performing Organization Address [facility] Phone Number [facility] [address] [address] [facility] [place] [address] * POCT glucose (04/01/2025 5:24 PM BRUSH HOLDER INSPECTOR) Glucose, POC 192 70 - 199 mg/dL Blood 04/01/2025 5:24 PM BRUSH HOLDER INSPECTOR 04/01/2025 5:24 PM BRUSH HOLDER INSPECTOR Brittnee Xiong MD LAB POCT ORDERABLES - DEVICE Final Result Performing Organization Address [facility] de Phone Number [facility] [address] [facility] [place] [address] * POCT glucose (04/01/2025 12:25 PM BRUSH HOLDER INSPECTOR) Glucose, POC 159 70 - 199 mg/dL Blood 04/01/2025 12:2 5 PM BRUSH HOLDER INSPECTOR 04/01/2025 12:25 PM BRUSH HOLDER INSPECTOR Brittnee Xiong MD LAB POCT ORDERABLES - DEVICE Final Result Performing Organization Address [facility] Co de Phone Number JUSTINE PENA [address] [address] [facility] [place] [address] * POCT glucose (04/01/2025 7:42 AM BRUSH HOLDER INSPECTOR) Glucose, POC 178 70 - 199 mg/dL Blood 04/01/2025 7:42 AM BRUSH HOLDER INSPECTOR 04/01/2025 7:42 AM BRUSH HOLDER INSPECTOR Brittnee Xiong MD LAB POCT ORDERABLES - DEVICE Final Result Performing Organization Address [facility] de Phone Number JUSTINE PENA [address] [address] [facility] [place] [address] * (ABNORMAL) eGFR (04/01/2025 5:45 AM BRUSH HOLDER INSPECTOR) eGFR 44(L) >=60 mL/min/1. 73 m2 Comment: Interpretive Data [...] Current interpretive data was last reviewed 2021. Blood 04/01/2025 5:45 AM BRUSH HOLDER INSPECTOR 04/01/2025 5:53 AM BRUSH HOLDER INSPECTOR us Brittnee Xiong MD LAB BLOOD ORDERABLES Final Re sult Performing Organization Address City/[facility] Co de Phone Number JUSTINE PENA [address] [address] [place] [address] * Magnesium (04/01/2025 5:45 AM BRUSH HOLDER INSPECTOR) Pathologist [facility] Magnesium 1.8 1.4 - 2.5 mg/dL Blood 04/01/2025 5:45 AM BRUSH HOLDER INSPECTOR 04/01/2025 5:53 AM BRUSH HOLDER INSPECTOR Brittnee Xiong MD LAB BLOOD ORDERABLES Final Re sult Performing Organization Address City/State/[facility] Co de Phone Number JUSTINE PENA [address] [address] [place] [address] * (ABNORMAL) Renal function panel (04/01/2025 5:45 AM BRUSH HOLDER INSPECTOR) Pathologist [facility] Sodium 137 135 - 145 mmol/L Potassium, pl 4.4 3.3 - 4.9 mmol/L [facility] Chloride 94(L) 97 - 110 mmol/L [facility] CO2 29 22 - 32 mmol/L [facility] Anion gap 14 2 - 15 mmol/L [facility] BUN 37(H) 6 - 25 mg/dL [facility] Creatinine 1.53(H) 0.60 - 1.10 mg/dL [facility] Glucose 198 70 - 199 mg/dL [facility] Comment: Interpretive Data Fasting glucose >/= 126 [...] Current interpretive data was last revised 2022. Calcium 9.4 8.5 - 10.3 mg/dL [facility] Phosphorus, pl 4.8(H) 2.3 - 4.5 mg/dL [facility] Albumin 3.6 3.5 - 5.0 g/dL [facility] Blood 04/01/2025 5:45 AM BRUSH HOLDER INSPECTOR 04/01/2025 5:53 AM BRUSH HOLDER INSPECTOR us Brittnee Xiong MD LAB BLOOD ORDERABLES Final Re sult Performing Organization Address City/[facility]/ZIP Co de Phone Number JUSTINE PENA [address] [address] [facility] [place] [address] * (ABNORMAL) POCT glucose (04/01/2025 4:59 AM BRUSH HOLDER INSPECTOR) Glucose, POC 202(H) 70 - 199 mg/dL Blood 04/01/2025 4:59 AM BRUSH HOLDER INSPECTOR 04/01/2025 4:59 AM BRUSH HOLDER INSPECTOR us Brittnee Xiong MD LAB POCT ORDERABLES - DEVICE Final Result Performing Organization Address [facility] de Phone Number JUSTINE JEAN [address] [address] Department [place] [address] * (ABNORMAL) POCT glucose (03/31/2025 8:18 PM BRUSH HOLDER INSPECTOR) Glucose, POC 208(H) 70 - 199 mg/dL Blood 03/31/2025 8:18 PM BRUSH HOLDER INSPECTOR 03/31/2025 8:18 PM BRUSH HOLDER INSPECTOR us Brittnee Xiong MD LAB POCT ORDERABLES - DEVICE Final Result Performing Organization Address [facility] Co de Phone Number JAMESDONOVAN PENA [address] [address] [address] * POCT glucose (03/31/2025 5:17 PM BRUSH HOLDER INSPECTOR) Glucose, POC 186 70 - 199 mg/dL Blood 03/31/2025 5:17 PM BRUSH HOLDER INSPECTOR 03/31/2025 5:17 PM BRUSH HOLDER INSPECTOR us Brittnee Xiong MD LAB POCT ORDERABLES - DEVICE Final Result Performing Organization Address City/[facility] Co de Phone Number JAMESDONOVAN PENA [id number] [place] [address] [place] [address] * TRANSTHORACIC ECHO (TTE) COMPLETE W DOPPLER/CF W CONTRAST (03/31/2025 1:04 PM BRUSH HOLDER INSPECTOR) Estimated EF 45-50 % CONS SCIMAGE EF Mod BP 52 % CONS SCIMAGE Anatomical Region Laterality Modality Ultrasound 03/31/2025 10:5 1 AM BRUSH HOLDER INSPECTOR Narrative 03/31/2025 4:29 [place] [address] Echocardiogram Report Patient Name: JUAN J MORALESErrol : 1985 Study Date: 03/31/2025 10:51:11 AM Sex: F Tech: Location: [id number] Ref Provider: MARTITA MIRZA Height(Cm): 149 BSA: 2.29 Weight(Kg): 127 Heart Rate: 73 BP: 123 / 81 Quality: Good Order Provider: MARTITA MIRZA PROCEDURES: Echocardiographic Report: Transthoracic echocardiogram with complete 2D, M-Mode, color Doppler examination and contrast. INDICATIONS: Heart failure. MEASUREMENTS: 2D/MM Value Range Doppler Value Range EF Teich 2D 46.3 percent [ 54.0 - 74.0 ] ASHLEY Vmax 1.94 cm2 EF Mod BP 52 % [ 54 - 74 ] AV Mean PG 3 mmHg Estimated EF 45-50 % AV Peak Segun 1.11 m/s [ 1.00 - 1.70 ] LVIDd 2D 4.24 cm [ 3.80 - 5.20 ] AV VTI 21.73 cm LVIDs 2D 3.27 cm [ 2.20 - 3.50 ] LVOT Diam 1.98 cm LVPWd 2D 1.35 cm [ 0.60 - 0.90 ] LVOT Peak Segun 0.69 m/s [ 0.70 - 1.10 ] IVSd 2D 1.29 cm [ 0.60 - 0.90 ] LVOT VTI 12.24 cm LA Dimension 2D 3.70 cm [ 2.70 - 3.80 ] SI LVOT 17.8 ml/m2 [ >= 35.0 ] LA Dimension MM 4.18 cm [ 2.70 - 3.80 ] MV E Peak Segun 1.27 m/s [ 0.60 - 1.30 ] AoR Diam 2D 2.74 cm [ 2.70 - 3.30 ] MV A Peak Segun 0.65 m/s [ 1.00 - 1.20 ] AoR Diam MM 2.70 cm [ 2.70 - 3.30 ] MV Mean PG 2 mmHg LA Volume Index 17.91 cc/m2 [ 16.00 - 34.00 ] MV PHT 62 msec [ 20 - 100 ] MVA PHT 3.54 cm2 MV Decel Time 206 msec [ 104 - 258 ] PV Peak Segun 0.54 m/s [ 0.40 - 0.80 ] TR Peak Segun 2.77 m/s [ 1.00 - 2.80 ] TR Peak PG 31 mmHg E` 0.07 m/s E/E` 12.79 2D/MM Value Range Doppler Value Range - FINDINGS: Atrial Septum: Normal atrial septum. Left Ventricle: Normal left ventricular size. Mild concentric left ventricular hypertrophy. Left ventricular systolic function at the lower limit of normal. Normal left ventricular diastolic function. Ejection fraction is measured at 52 %. Ejection Fraction is visually estimated to be 45-50 %. Left Atrium: There is mild enlargement of left atrium. Right Ventricle: Normal right ventricular size. Normal right ventricular systolic function. Right Atrium: The right atrium is normal in size. Aortic Valve: Aortic valve not well visualized. Aortic cusps appear mildly sclerotic. No evidence of hemodynamically significant aortic stenosis by Doppler. Mitral Valve: Mitral valve leaflets appear mildly thickened. Moderate mitral annular calcification. Trivial regurgitation of the mitral valve. Pulmonic Valve: Pulmonic valve not well visualized. No evidence of pulmonic regurgitation. Tricuspid Valve: Normal structure of the tricuspid valve. Normal right ventricular systolic pressure. Mild tricuspid regurgitation. Pericardium: Normal pericardium with no significant pericardial effusion. Aorta: Normal aortic root. IVC: Normal size and normal respiratory collapse consistent with normal right atrial pressure (<5 mmHg). Pulmonary Artery: Pulmonary artery not well visualized. CONCLUSIONS: Technically difficult study with limited views and [...] annular calcification. Trivial regurgitation of the mitral valve. Aortic valve not well visualized. Aortic cusps appear mildly sclerotic. No evidence of hemodynamically significant aortic stenosis by Doppler. Normal structure of the tricuspid valve. Normal right ventricular systolic pressure. Mild tricuspid regurgitation. Normal pericardium with no significant pericardial effusion. Electronically Signed By: Xiomara Wray MD 03/31/2025 4:28:12 PM BRUSH HOLDER INSPECTOR Procedure Note Xiomara Wray MD - 03/31/2025 [place] [address] Echocardiogram Report Patient Name: JUAN J MORALES D : 1985 Study Date: 03/31/2025 10:51:11 AM Sex: F [facility]: Location: [id number] Ref Provider: MARTITA MIRZA Height(Cm): 149 BSA: 2.29 Weight(Kg): 127 Heart Rate: 73 BP: 123 / 81 Quality: Good Order Provider: MARTITA MIRZA PROCEDURES: Echocardiographic Report: Transthoracic echocardiogram with complete 2D, M-Mode, color Dopplerexamination and contrast. INDICATIONS: Heart failure. MEASUREMENTS: 2D/MM Value Range DopplerValue Range EF Teich 2D 46.3 percent [ 54.0 - 74.0 ] ASHLEY Vmax1.94 cm2 EF Mod BP 52 % [ 54 - 74 ] AV Mean PG 3mmHg Estimated EF 45-50 % AV Peak Vel1.11 m/s [ 1.00 - 1.70 ] LVIDd 2D 4.24 cm [ 3.80 - 5.20 ] AV VTI21.73 cm LVIDs 2D 3.27 cm [ 2.20 - 3.50 ] LVOT Diam1.98 cm LVPWd 2D 1.35 cm [ 0.60 - 0.90 ] LVOT Peak Vel0.69 m/s [ 0.70 - 1.10 ] IVSd 2D 1.29 cm [ 0.60 - 0.90 ] LVOT VTI12.24 cm LA Dimension 2D 3.70 cm [ 2.70 - 3.80 ] SI LVOT17.8 ml/m2 [ >= 35.0 ] LA Dimension MM 4.18 cm [ 2.70 - 3.80 ] MV E Peak Vel1.27 m/s [ 0.60 - 1.30 ] AoR Diam 2D 2.74 cm [ 2.70 - 3.30 ] MV A Peak Vel0.65 m/s [ 1.00 - 1.20 ] AoR Diam MM 2.70 cm [ 2.70 - 3.30 ] MV Mean PG 2mmHg LA Volume Index 17.91 cc/m2 [ 16.00 - 34.00 ] MV PHT62 msec [ 20 - 100 ] MVA PHT 3.54 cm2 MV Decel Time 206 msec [ 104 - 258 ] PV Peak Segun 0.54 m/s [ 0.40 - 0.80 ] TR Peak Segun 2.77 m/s [ 1.00 - 2.80 ] TR Peak PG 31 mmHg E` 0.07 m/s E/E` 12.79 2D/MM Value Range DopplerValue Range - FINDINGS: Atrial Septum: Normal atrial septum. Left Ventricle: Normal left ventricular size. Mild concentric left ventricularhypertrophy. Left ventricular systolic function at the lower limit of normal. Normal leftventricular diastolic function. Ejection fraction is measured at 52 %. EjectionFraction is visually estimated to be 45-50 %. Left Atrium: There is mild enlargement of left atrium. Right Ventricle: Normal right ventricular size. Normal right ventricular systolicfunction. Right Atrium: The right atrium is normal in size. Aortic Valve: Aortic valve not well visualized. Aortic cusps appear mildly sclerotic. Noevidence of hemodynamically significant aortic stenosis by Doppler. Mitral Valve: Mitral valve leaflets appear mildly thickened. Moderate mitral annularcalcification. Trivial regurgitation of the mitral valve. Pulmonic Valve: Pulmonic valve not well visualized. No evidence of pulmonicregurgitation. Tricuspid Valve: Normal structure of the tricuspid valve. Normal right ventricular systolicpressure. Mild tricuspid regurgitation. Pericardium: Normal pericardium with no significant pericardial effusion. Aorta: Normal aortic root. IVC: Normal size and normal respiratory collapse consistent with normal rightatrial pressure (<5 mmHg). Pulmonary Artery: Pulmonary artery not well visualized. CONCLUSIONS: Technically difficult study with limited views and visualization. Valvesin general are poorly visualized. Optic was utilized. The. Normal left ventricular size. Mild concentric left ventricularhypertrophy. Left ventricular systolic function at the lower limit of normal. Normal leftventricular diastolic function. Ejection fraction is measured at 52 %. EjectionFraction is visually estimated to be 45-50 %. Global hypokinesis noted. Normal right ventricular size. Normal right ventricular systolicfunction. There is mild enlargement of left atrium. Mitral valve leaflets appear mildly thickened. Moderate mitral annularcalcification. Trivial regurgitation of the mitral valve. Aortic valve not well visualized. Aortic cusps appear mildly sclerotic. Noevidence of hemodynamically significant aortic stenosis by Doppler. Normal structure of the tricuspid valve. Normal right ventricular systolicpressure. Mild tricuspid regurgitation. Normal pericardium with no significant pericardial effusion. Electronically Signed By: Xiomara Wray MD 03/31/2025 4:28:12 PM BRUSH HOLDER INSPECTOR us Martita Mirza NP CV ECHO PROCEDURES Final Result * POCT glucose (03/31/2025 12:41 PM BRUSH HOLDER INSPECTOR) Glucose, POC 174 70 - 199 mg/dL Blood 03/31/2025 12:4 1 PM BRUSH HOLDER INSPECTOR 03/31/2025 12:41 PM BRUSH HOLDER INSPECTOR Brittnee Xiong MD LAB POCT ORDERABLES - DEVICE Final Result Performing Organization Address [facility] Co de Phone Number JUSTINE PENA [address] [place] [address] * (ABNORMAL) eGFR (03/31/2025 11:45 AM BRUSH HOLDER INSPECTOR) eGFR 49(L) >=60 mL/min/1. 73 m2 Comment: Interpretive Data [...] Current interpretive data was last reviewed 2021. Blood 03/31/2025 11:4 5 AM BRUSH HOLDER INSPECTOR 03/31/2025 11:52 AM BRUSH HOLDER INSPECTOR Brittnee Xiong MD LAB BLOOD ORDERABLES Final Re sult Performing Organization Address City/[facility]/ZIP Co de Phone Number JUSTINE PENA [address] [address] Department [place] [address] * (ABNORMAL) Renal function panel (03/31/2025 11:45 AM BRUSH HOLDER INSPECTOR) Sodium 137 135 - 145 mmol/L Potassium, pl 4.7 3.3 - 4.9 mmol/L [facility] Chloride 96(L) 97 - 110 mmol/L [facility] CO2 28 22 - 32 mmol/L [facility] Anion gap 13 2 - 15 mmol/L [facility] BUN 35(H) 6 - 25 mg/dL [facility] Creatinine 1.39(H) 0.60 - 1.10 mg/dL [facility] Glucose 185 70 - 199 mg/dL [facility] Comment: Interpretive Data Fasting glucose >/= 126 [...] Current interpretive data was last revised 2022. Calcium 9.3 8.5 - 10.3 mg/dL [facility] Phosphorus, pl 5.2(H) 2.3 - 4.5 mg/dL [facility] Albumin 3.3(L) 3.5 - 5.0 g/dL [facility] Blood 03/31/2025 11:4 5 AM BRUSH HOLDER INSPECTOR 03/31/2025 11:51 AM BRUSH HOLDER INSPECTOR Brittnee Xiong MD LAB BLOOD ORDERABLES Final Re sult Performing Organization Address City/[facility]/ZIP Co de Phone Number [facility] [address] [address] [place] [address] * POCT glucose (03/31/2025 7:38 AM BRUSH HOLDER INSPECTOR) Glucose, POC 193 70 - 199 mg/dL Blood 03/31/2025 7:38 AM BRUSH HOLDER INSPECTOR 03/31/2025 7:38 AM BRUSH HOLDER INSPECTOR Brittnee Xiong MD LAB POCT ORDERABLES - DEVICE Final Result Performing Organization Address [facility]/ZIP Co de Phone Number [facility] [address] [address] [place] [address] * POCT glucose (03/31/2025 3:47 AM BRUSH HOLDER INSPECTOR) Glucose, POC 193 70 - 199 mg/dL Blood 03/31/2025 3:47 AM BRUSH HOLDER INSPECTOR 03/31/2025 3:47 AM BRUSH HOLDER INSPECTOR Brittnee Xiong MD LAB POCT ORDERABLES - DEVICE Final Result Performing Organization Address [facility] Co de Phone Number JAMESDONOVAN PENA [address] [address] [facility] [employer] [place], [place] [address] * (ABNORMAL) POCT glucose (03/30/2025 8:25 PM BRUSH HOLDER INSPECTOR) Glucose, POC 209(H) 70 - 199 mg/dL Blood 03/30/2025 8:25 PM BRUSH HOLDER INSPECTOR 03/30/2025 8:25 PM BRUSH HOLDER INSPECTOR Brittnee Xiong MD LAB POCT ORDERABLES - DEVICE Final Result Performing Organization Address [facility] de Phone Number JUSTINE JEAN [address] [address] [facility] [place] [address] * (ABNORMAL) POCT glucose (03/30/2025 6:34 PM BRUSH HOLDER INSPECTOR) Glucose, POC 217(H) 70 - 199 mg/dL Blood 03/30/2025 6:34 PM BRUSH HOLDER INSPECTOR 03/30/2025 6:34 PM BRUSH HOLDER INSPECTOR Brittnee Xiong MD LAB POCT ORDERABLES - DEVICE Final Result Performing Organization Address [facility] Co de Phone Number JUSTINE JEAN [address] [address] [facility] [place] [address] * POCT glucose (03/30/2025 12:44 PM BRUSH HOLDER INSPECTOR) Glucose, POC 152 70 - 199 mg/dL Blood 03/30/2025 12:4 4 PM BRUSH HOLDER INSPECTOR 03/30/2025 12:44 PM BRUSH HOLDER INSPECTOR Brittnee Xiong MD LAB POCT ORDERABLES - DEVICE Final Result Performing Organization Address City/[facility]/ZIP Co de Phone Number JUSTINE PENA [address] [address] [place] [address] * POCT glucose (03/30/2025 7:33 AM BRUSH HOLDER INSPECTOR) Glucose, POC 164 70 - 199 mg/dL Blood 03/30/2025 7:33 AM BRUSH HOLDER INSPECTOR 03/30/2025 7:33 AM BRUSH HOLDER INSPECTOR Brittnee Xiong MD LAB POCT ORDERABLES - DEVICE Final Result Performing Organization Address [facility] Co de Phone Number JUSTINE PENA [address] [address] Department [place] [address] * (ABNORMAL) eGFR (03/30/2025 3:07 AM BRUSH HOLDER INSPECTOR) Pathologist [facility] eGFR 48(L) >=60 mL/min/1. 73 m2 Comment: Interpretive Data [...] Current interpretive data was last reviewed 2021. Blood 03/30/2025 3:07 AM BRUSH HOLDER INSPECTOR 03/30/2025 3:10 AM BRUSH HOLDER INSPECTOR Martita Mirza NP LAB BLOOD ORDERABLES Marilyn l Result Performing Organization Address [facility] Co de Phone Number JUSTINE PENA [address] [address] [place] [address] * (ABNORMAL) CBC without differential (03/30/2025 3:07 AM BRUSH HOLDER INSPECTOR) [facility] WBC 8.86 3.80 - 9.90 K/cumm Hgb 10.8(L) 11.9 - 15.5 g/dL [facility] Hct 35.7 35.6 - 45.5 % [facility] Plt 223 150 - 400 K/cumm [facility] MPV 10.8 9.1 - 12.3 fL [facility] RBC 4.15 3.90 - 5.20 M/cumm [facility] MCV 86.0 81.3 - 96.4 fL [facility] MCH 26.0(L) 27.1 - 33.3 pg [facility] MCHC 30.3(L) 32.3 - 35.7 g/dL [facility] RDW CV 16.8(H) 11.1 - 14.9 % [facility] RDW SD 51.0(H) 35.7 - 48.1 fL [facility] NRBC abs 0.00 0.00 - 0.01 K/cumm [facility] Blood 03/30/2025 3:07 AM BRUSH HOLDER INSPECTOR 03/30/2025 3:10 AM BRUSH HOLDER INSPECTOR Martita Mirza SENIOR SALES MANAGER LAB BLOOD ORDERABLES Marilyn l Result Performing Organization Address [facility] Co de Phone Number [facility] [address] [address] [facility] [place] [address] * (ABNORMAL) Phosphorus (03/30/2025 3:07 AM BRUSH HOLDER INSPECTOR) [facility] Phosphorus, pl 4.9(H) 2.3 - 4.5 mg/dL Blood 03/30/2025 3:07 AM BRUSH HOLDER INSPECTOR 03/30/2025 3:10 AM BRUSH HOLDER INSPECTOR Martita Mirza SENIOR SALES MANAGER LAB BLOOD ORDERABLES Marilyn l Result Performing Organization Address City/[facility]/ZIP Co de Phone Number [facility] [address] [address] [place] [address] * Magnesium (03/30/2025 3:07 AM BRUSH HOLDER INSPECTOR) Magnesium 1.8 1.4 - 2.5 mg/dL Blood 03/30/2025 3:07 AM BRUSH HOLDER INSPECTOR 03/30/2025 3:10 AM BRUSH HOLDER INSPECTOR us Martita Mirza SENIOR SALES MANAGER LAB BLOOD ORDERABLES [place] [id number] [address] [place] [address] * (ABNORMAL) Comprehensive metabolic panel (03/30/2025 3:07 AM BRUSH HOLDER INSPECTOR) Sodium 136 135 - 145 mmol/L Potassium, pl 4.4 3.3 - 4.9 mmol/L [facility] Chloride 99 97 - 110 mmol/L [facility] CO2 27 22 - 32 mmol/L [facility] Anion gap 10 2 - 15 mmol/L [facility] BUN 25 6 - 25 mg/dL [facility] Creatinine 1.42(H) 0.60 - 1.10 mg/dL [facility] Glucose 160 70 - 199 mg/dL [facility] Comment: Interpretive Data Fasting glucose >/= 126 [...] Current interpretive data was last revised 2022. Calcium 8.9 8.5 - 10.3 mg/dL [facility] Bilirubin, total 0.3 0.1 - 1.2 mg/dL [facility] Protein, pl 7.1 6.5 - 8.5 g/dL [facility] Albumin 3.1(L) 3.5 - 5.0 g/dL [facility] Alk phos 120 40 - 130 Units/L [facility] ALT 22 7 - 45 Units/L [facility] AST 45 10 - 45 Units/L [facility] Blood 03/30/2025 3:07 AM BRUSH HOLDER INSPECTOR 03/30/2025 3:10 AM BRUSH HOLDER INSPECTOR Martita Mirza SENIOR SALES MANAGER LAB BLOOD ORDERABLES Marilyn l Result Performing Organization Address [place] Hospital/[facility] Co de Phone Number [facility] [id number] [facility] [place] [address] * POCT glucose (03/29/2025 8:56 PM BRUSH HOLDER INSPECTOR) Glucose, POC 172 70 - 199 mg/dL Blood 03/29/2025 8:56 PM BRUSH HOLDER INSPECTOR 03/29/2025 8:56 PM BRUSH HOLDER INSPECTOR Brittnee Xiong MD LAB POCT ORDERABLES - DEVICE Final Result Performing Organization Address [facility] de Phone Number [facility] [id number] [place] [address] * POCT glucose (03/29/2025 5:27 PM BRUSH HOLDER INSPECTOR) Glucose, POC 168 70 - 199 mg/dL Blood 03/29/2025 5:27 PM BRUSH HOLDER INSPECTOR 03/29/2025 5:27 PM BRUSH HOLDER INSPECTOR Brittnee Xiong MD LAB POCT ORDERABLES - DEVICE Final Result Performing Organization Address [facility] de Phone Number [facility] [address] [employer] [place] [address] * (ABNORMAL) POCT glucose (03/29/2025 3:51 PM BRUSH HOLDER INSPECTOR) Glucose, POC 223(H) 70 - 199 mg/dL Blood 03/29/2025 3:51 PM BRUSH HOLDER INSPECTOR 03/29/2025 3:51 PM BRUSH HOLDER INSPECTOR Brittnee Xiong MD LAB POCT ORDERABLES - DEVICE Final Result Performing Organization Address [facility] de Phone Number JUSTINE PENA [address] [facility] [place] [address] * (ABNORMAL) POCT glucose (03/29/2025 2:24 PM BRUSH HOLDER INSPECTOR) Glucose, POC 242(H) 70 - 199 mg/dL Blood 03/29/2025 2:24 PM BRUSH HOLDER INSPECTOR 03/29/2025 2:24 PM BRUSH HOLDER INSPECTOR Brittnee Xiong MD LAB POCT ORDERABLES - DEVICE Final Result Performing Organization Address [facility] de Phone Number JUSTINE PENA [address] [facility] [place] [address] * POCT glucose (03/29/2025 12:22 PM BRUSH HOLDER INSPECTOR) Glucose, POC 124 70 - 199 mg/dL Blood 03/29/2025 12:2 2 PM BRUSH HOLDER INSPECTOR 03/29/2025 12:22 PM BRUSH HOLDER INSPECTOR Brittnee Xiong MD LAB POCT ORDERABLES - DEVICE Final Result Performing Organization Address [facility] de Phone Number JUSTINE PENA [address] [facility] [place] [address] * (ABNORMAL) Blood gas, arterial (03/29/2025 11:27 AM BRUSH HOLDER INSPECTOR) pH, Art 7.36 7.35 - 7.45 PCO2, Arterial 50(H) 35 - 45 mmHg [facility] PO2, Arterial 122(H) 83 - 108 mmHg [facility] HCO3 Art (Calculated) 26 20 - 30 mmol/L [facility] BE, art 2 mmol/L [facility] Comment: Interpretive Data No Reference Range Established Current Interpretive Data was last revised on 2017 O2 Sat Art (Measured) 98(H) 90 - 95 % [facility] Blood 03/29/2025 11:2 7 AM BRUSH HOLDER INSPECTOR 03/29/2025 11:31 AM BRUSH HOLDER INSPECTOR us Brittnee Xiong MD LAB BLOOD ORDERABLES Final Re sult Performing Organization Address City/[facility]/ZIP Co de Phone Number JUSTINE PENA [address] [facility] [employer] [place] [address] * (ABNORMAL) POCT glucose (03/29/2025 9:35 AM BRUSH HOLDER INSPECTOR) Glucose, POC 218(H) 70 - 199 mg/dL Blood 03/29/2025 9:35 AM BRUSH HOLDER INSPECTOR 03/29/2025 9:35 AM BRUSH HOLDER INSPECTOR Brittnee Xiong MD LAB POCT ORDERABLES - DEVICE Final Result Performing Organization Address [facility] Co de Phone Number JUSTINE PENA [address] [place] [address] * POCT glucose (03/29/2025 8:40 AM BRUSH HOLDER INSPECTOR) Glucose, POC 118 70 - 199 mg/dL Blood 03/29/2025 8:40 AM BRUSH HOLDER INSPECTOR 03/29/2025 8:40 AM BRUSH HOLDER INSPECTOR us Brittnee Xiong MD LAB POCT ORDERABLES - DEVICE Final Result Performing Organization Address [facility] Co de Phone Number JUSTINE PENA [address] [place] [address] * POCT glucose (03/29/2025 8:24 AM BRUSH HOLDER INSPECTOR) Glucose, POC 78 70 - 199 mg/dL Blood 03/29/2025 8:24 AM BRUSH HOLDER INSPECTOR 03/29/2025 8:24 AM BRUSH HOLDER INSPECTOR us Brittnee Xiong MD LAB POCT ORDERABLES - DEVICE Final Result Performing Organization Address [facility] Co de Phone Number JUSTINE PENA [address] [place] [address] * (ABNORMAL) POCT glucose (03/29/2025 8:06 AM BRUSH HOLDER INSPECTOR) Glucose, POC 50(C) 70 - 199 mg/dL Blood 03/29/2025 8:06 AM BRUSH HOLDER INSPECTOR 03/29/2025 8:06 AM BRUSH HOLDER INSPECTOR Brittnee Xiong MD LAB POCT ORDERABLES - DEVICE Final Result Performing Organization Address City/[facility]/ZIP Co de Phone Number JUSTINE PENA [address] [place] [address] * eGFR (03/29/2025 7:40 AM BRUSH HOLDER INSPECTOR) [facility] eGFR 67 >=60 mL/min/1. 73 m2 Comment: Interpretive Data [...] Current interpretive data was last reviewed 2021. Blood 03/29/2025 7:40 AM BRUSH HOLDER INSPECTOR 03/29/2025 8:30 AM BRUSH HOLDER INSPECTOR Martita Mirza SENIOR SALES MANAGER LAB BLOOD ORDERABLES Marilyn l Result JUSTINE PENA [id number] [facility] [address] [employer] [place], [place] [id number] * (ABNORMAL) Differential, auto (03/29/2025 7:40 AM BRUSH HOLDER INSPECTOR) [facility] Neutrophil abs 5.36 1.50 - 6.50 K/cumm Imm gran abs 0.04 0.00 - 0.10 K/cumm [facility] Lymphocyte abs 4.50(H) 0.80 - 3.30 K/cumm [facility] Monocyte abs 1.03(H) 0.20 - 0.80 K/cumm [facility] Eosinophil abs 0.34 0.00 - 0.50 K/cumm [facility] Basophil abs 0.11(H) 0.00 - 0.10 K/cumm [facility] Neutrophil pct 47.0 % [facility] Comment: Interpretive Data Percent cell count reference ranges are not reported, since discordance with absolute values may lead to misinterpretation of CBC data. Current Interpretive Data was last revised on 2017. Imm gran pct 0.4 % [facility] Comment: Interpretive Data Percent cell count reference ranges are not reported, since discordance with absolute values may lead to misinterpretation of CBC data. Current Interpretive Data was last revised on 2017. Lymphocyte pct 39.5 % [facility] Comment: Interpretive Data Percent cell count reference ranges are not reported, since discordance with absolute values may lead to misinterpretation of CBC data. Current Interpretive Data was last revised on 2017. Monocyte pct 9.1 % [facility] Comment: Interpretive Data Percent cell count reference ranges are not reported, since discordance with absolute values may lead to misinterpretation of CBC data. Current Interpretive Data was last revised on 2017. Eosinophil pct 3.0 % [facility] Comment: Interpretive Data Percent cell count reference ranges are not reported, since discordance with absolute values may lead to misinterpretation of CBC data. Current Interpretive Data was last revised on 2017. Basophil pct 1.0 % [facility] Comment: Interpretive Data Percent cell count reference ranges are not reported, since discordance with absolute values may lead to misinterpretation of CBC data. Current Interpretive Data was last revised on 2017. Blood 03/29/2025 7:40 AM BRUSH HOLDER INSPECTOR 03/29/2025 8:30 AM BRUSH HOLDER INSPECTOR us Martita Mirza NP LAB BLOOD ORDERABLES Marilyn l Result JUSTINE PENA [address] [place] [address] * (ABNORMAL) CBC with auto differential (03/29/2025 7:40 AM BRUSH HOLDER INSPECTOR) WBC 11.38(H) 3.80 - 9.90 K/cumm Hgb 11.9 11.9 - 15.5 g/dL [facility] Hct 38.6 35.6 - 45.5 % [facility] Plt 235 150 - 400 K/cumm [facility] MPV 10.8 9.1 - 12.3 fL [facility] RBC 4.51 3.90 - 5.20 M/cumm [facility] MCV 85.6 81.3 - 96.4 fL [facility] CH MCH 26.4(L) 27.1 - 33.3 pg [facility] MCHC 30.8(L) 32.3 - 35.7 g/dL [facility] CH RDW CV 17.0(H) 11.1 - 14.9 % [facility] RDW SD 51.7(H) 35.7 - 48.1 fL [facility] NRBC abs 0.00 0.00 - 0.01 K/cumm [facility] Blood 03/29/2025 7:40 AM BRUSH HOLDER INSPECTOR 03/29/2025 8:30 AM BRUSH HOLDER INSPECTOR Martita Mirza NP LAB BLOOD ORDERABLES Marilyn flores Result [facility] [id number] [place] [address] * Blood culture Blood (03/29/2025 7:40 AM BRUSH HOLDER INSPECTOR) Pathologist [facility] Report Final Report: No growth Comment:Testing performed by : [facility], [address] [place]., [address] Blood 03/29/2025 7:40 AM BRUSH HOLDER INSPECTOR 03/29/2025 10:15 AM BRUSH HOLDER INSPECTOR Narrative [facility] - 04/02/2025 12:00 PM BRUSH HOLDER INSPECTOR From a different site than #1. Collection->Peripheral 1. Blood cultures are incubated for 4 days on a continuously monitored blood culture system. The first report of a negative culture is issued within 24 hours of receipt of the specimen in the laboratory. 2. Positive culture results are reported as soon as they are detected. 3. The most important factor for detection of microbes in the setting of bloodstream infection is the volume of blood submitted for culture. Failure to collect an optimal blood volume can result in false negative blood cultures. 4. For pediatric patients, the recommended blood volume to collect follows a weight based strategy. See the electronic test catalog for collection instructions. 5. For positive blood cultures, a rapid molecular test may be performed for organism identification using the kar ePlex blood culture identification panel for gram positive (BCID-GP) and gram negative (BCID-GN) organisms. This nucleic acid amplification test detects microbial DNA in positive blood culture broth. This assay has been cleared by the [place] Food and Drug Administration and its performance characteristics have been verified by the [facility] Microbiology Laboratory. For questions about this culture, contact the Microbiology Laboratory at [phone]. Interpretive data was last revised on 24. us Martita Mirza NP LAB MICROBIOLOGY - GENERA L ORDERABLES Final Result UJSTINE PENA [address] [place] [address] * Blood culture Blood (03/29/2025 7:40 AM BRUSH HOLDER INSPECTOR) Report Final Report: No growth Comment:Testing performed by : [facility], [address] [place]., [address] Blood 03/29/2025 7:40 AM BRUSH HOLDER INSPECTOR 03/29/2025 10:15 AM BRUSH HOLDER INSPECTOR Jazzy Juarez 04/02/2025 12:00 PM BRUSH HOLDER INSPECTOR Collection->Peripheral 1. Blood cultures are incubated for 4 days on a continuously monitored blood culture system. The first report of a negative culture is issued within 24 hours of receipt of the specimen in the laboratory. 2. Positive culture results are reported as soon as they are detected. 3. The most important factor for detection of microbes in the setting of bloodstream infection is the volume of blood submitted for culture. Failure to collect an optimal blood volume can result in false negative blood cultures. 4. For pediatric patients, the recommended blood volume to collect follows a weight based strategy. See the electronic test catalog for collection instructions. 5. For positive blood cultures, a rapid molecular test may be performed for organism identification using the kar ePlex blood culture identification panel for gram positive (BCID-GP) and gram negative (BCID-GN) organisms. This nucleic acid amplification test detects microbial DNA in positive blood culture broth. This assay has been cleared by the [place] Food and Drug Administration and its performance characteristics have been verified by the [facility] Microbiology Laboratory. For questions about this culture, contact the Microbiology Laboratory at [phone]. Interpretive data was last revised on 24. Martita Mirza NP LAB MICROBIOLOGY - GENERA L ORDERABLES Final Result Performing Organization Address [facility] Co de Phone Number JAMESDONOVAN [address] Department [employer] [place], [place] [id number] * Phosphorus (03/29/2025 7:40 AM BRUSH HOLDER INSPECTOR) Phosphorus, pl 3.8 2.3 - 4.5 mg/dL Blood 03/29/2025 7:40 AM BRUSH HOLDER INSPECTOR 03/29/2025 8:30 AM BRUSH HOLDER INSPECTOR Martita Mirza NP LAB BLOOD ORDERABLES Marilyn l Result Performing Organization Address [facility] de Phone Number JAMESDONOVAN [address] [address] [place] [address] * Magnesium (03/29/2025 7:40 AM BRUSH HOLDER INSPECTOR) Magnesium 1.9 1.4 - 2.5 mg/dL Blood 03/29/2025 7:40 AM BRUSH HOLDER INSPECTOR 03/29/2025 8:30 AM BRUSH HOLDER INSPECTOR Martita Mirza NP LAB BLOOD ORDERABLES Marilyn l Result Performing Organization Address [facility] de Phone Number JAMESDONOVAN [address] [place] [address] * (ABNORMAL) Hemoglobin A1c (03/29/2025 7:40 AM BRUSH HOLDER INSPECTOR) Hgb A1C 8.0(H) 4.0 - 5.6 % Estimated Average Glucose 183 mg/dL [facility] Comment: The ADA recommends reporting an estimated Average Glucose (eAG) with all Hemoglobin A1c results using the equation derived from a study of 507 normal and diabetic adults. Minority populations were underrepresented and children were not included. (Diabetes Care 31:3185-8291, 2008). The eAG is not equivalent to a fasting glucose. Blood 03/29/2025 7:40 AM BRUSH HOLDER INSPECTOR 03/29/2025 5:40 PM BRUSH HOLDER INSPECTOR Brittnee Xiong MD LAB BLOOD ORDERABLES Final Re sult [facility] [address] [place] [address] * (ABNORMAL) Comprehensive metabolic panel (03/29/2025 7:40 AM BRUSH HOLDER INSPECTOR) Pathologist [facility] Sodium 135 135 - 145 mmol/L Potassium, pl 4.2 3.3 - 4.9 mmol/L [facility] Chloride 98 97 - 110 mmol/L [facility] CO2 23 22 - 32 mmol/L [facility] Anion gap 14 2 - 15 mmol/L [facility] BUN 15 6 - 25 mg/dL [facility] Creatinine 1.07 0.60 - 1.10 mg/dL [facility] Glucose 50(C) 70 - 199 mg/dL [facility] Comment: Critical Result called to and read back by shannan ernandez, DATE: 2025-03-29 09:16:25 BY: payal cannon Interpretive Data Fasting glucose >/= 126 mg/dl [...] Current interpretive data was last revised 2022. Calcium 8.9 8.5 - 10.3 mg/dL [facility] Bilirubin, total 0.3 0.1 - 1.2 mg/dL [facility] Protein, pl 7.7 6.5 - 8.5 g/dL [facility] Albumin 3.1(L) 3.5 - 5.0 g/dL [facility] Alk phos 131(H) 40 - 130 Units/L [facility] ALT 24 7 - 45 Units/L [facility] AST 55(H) 10 - 45 Units/L [facility] Blood 03/29/2025 7:40 AM BRUSH HOLDER INSPECTOR 03/29/2025 8:30 AM BRUSH HOLDER INSPECTOR Martita Mirza SENIOR SALES MANAGER LAB BLOOD ORDERABLES Marilyn l Result Performing Organization Address [facility] Co de Phone Number [facility] [address] [place] [address] * POCT glucose (03/29/2025 4:53 AM BRUSH HOLDER INSPECTOR) Glucose, POC 84 70 - 199 mg/dL Blood 03/29/2025 4:53 AM BRUSH HOLDER INSPECTOR 03/29/2025 4:53 AM BRUSH HOLDER INSPECTOR Brittnee Xiong MD LAB POCT ORDERABLES - DEVICE Final Result Performing Organization Address [facility] de Phone Number [facility] [address] [address] [place] [address] * (ABNORMAL) POCT glucose (03/29/2025 4:38 AM BRUSH HOLDER INSPECTOR) Glucose, POC 50(C) 70 - 199 mg/dL Blood 03/29/2025 4:38 AM BRUSH HOLDER INSPECTOR 03/29/2025 4:38 AM BRUSH HOLDER INSPECTOR Brittnee Xiong MD LAB POCT ORDERABLES - DEVICE Final Result Performing Organization Address [facility] Co de Phone Number JUSTINE PENA [address] [address] [facility] [place] [address] * (ABNORMAL) POCT glucose (03/29/2025 4:28 AM BRUSH HOLDER INSPECTOR) Glucose, POC 50(C) 70 - 199 mg/dL Blood 03/29/2025 4:28 AM BRUSH HOLDER INSPECTOR 03/29/2025 4:28 AM BRUSH HOLDER INSPECTOR Candy Uribe MD LAB POCT ORDERABLES - DEVICE Final Result Performing Organization Address [facility] de Phone Number JUSTINE [address] [address] [facility] [place] [address] * POCT glucose (03/29/2025 2:54 AM BRUSH HOLDER INSPECTOR) Glucose, POC 82 70 - 199 mg/dL Blood 03/29/2025 2:54 AM BRUSH HOLDER INSPECTOR 03/29/2025 2:54 AM BRUSH HOLDER INSPECTOR Candy Uribe MD LAB POCT ORDERABLES - DEVICE Final Result Performing Organization Address [facility] de Phone Number JUSTINE PENA [address] [place] [address] * CT Chest PE (CTA) W Contrast (03/28/2025 10:20 PM BRUSH HOLDER INSPECTOR) Anatomical Region Laterality Modality Body N/A Computed Tomogra phy 03/28/2025 10:1 7 PM BRUSH HOLDER INSPECTOR Impressions 03/29/2025 11:12 AM BRUSH HOLDER INSPECTOR 1. No pulmonary embolism with some limitations in subsegmental basilar arteries due to respiratory motion. 2. 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 There is mild soft tissue thickening and fat stranding around the sternum, improved in some areas compared to prior. The findings may reflect evolving postsurgical change, though the increased gap between the sternal fragments, and persistent inflammatory change could reflect sequelae of infection. Correlate with physical examination, patient labs and symptoms. 3. Partially imaged fat stranding in the region of the jose david hepatis pancreaticoduodenal groove, incompletely assessed and could reflect pancreatitis or duodenitis, correlate with patient's symptoms and consider CT of the abdomen if clinically indicated. 4. Likely reactive mediastinal lymphadenopathy. 5. Trace bilateral pleural effusions. ADDENDUM - This addendum is being placed on the report for a time dependent finding on a patient who is admitted to the hospital (2B). Evolving changes of the sternotomy including sternal wire fracture, sternal nonunion, as well as pancreaticoduodenal stranding as described above. These findings were communicated to Dr. Xiong by Dr. Candelario at 03/29/2025 11:06 AM. Preliminary results were provided by the tele-radiologist at 10:52 PM on 03/28/2025. Electronically signed by: Altagracia Candelario M.D. Narrative 03/29/2025 11:12 AM BRUSH HOLDER INSPECTOR EXAMINATION: CT CHEST PE (CTA) W CONTRAST HISTORY: Shortness of breath, leg swelling TECHNIQUE: Computed tomographic images were acquired using a chest angiographic protocol optimized for pulmonary embolism. Contrast enhanced transaxial images were obtained following the intravenous administration of 93 ml of nonionic contrast. Multiplanar reformatted images and three-dimensional images were obtained on the 3-D workstation and sent to the PACS archival system. COMPARISON: 11/21/2023 FINDINGS: There is no pulmonary embolism within the limitations of respiratory motion involving subsegmental arteries at the lung bases. The heart is enlarged. There is no pericardial effusion. There are postoperative changes of coronary artery bypass grafting and median sternotomy. The sternotomy is nonunited, there is subcutaneous fat stranding around the sternum, this is decreased from prior. There is no organized fluid collection. The gap between the margins of the sternotomy is increased throughout the sternal body. When comparing the chest radiographs, there is a fracture of multiple of the sternotomy wires. There are no enlarged axillary or supraclavicular lymph nodes. There are mildly enlarged mediastinal lymph nodes. There is stranding in the prevascular anterior mediastinum. There are trace bilateral pleural effusions. There is mild bibasilar atelectasis peripheral patchy groundglass opacity in the right middle lobe, and lower lungs likely infectious or inflammatory. No pneumothorax. The imaged upper abdomen demonstrates postoperative changes of cholecystectomy. There is pneumobilia, and there is fat stranding in the region of the jose david hepatis and pancreaticoduodenal groove. As described above, the sternotomy is nonunited, there is interval fracture of multiple of the sternotomy wires, and increase between the sternal fragments. Procedure Note Altagracia Candelario MD - 03/29/2025 EXAMINATION: CT CHEST PE (CTA) W CONTRAST HISTORY: Shortness of breath, leg swelling TECHNIQUE: Computed tomographic images were acquired using a chest angiographic protocol optimized for pulmonary embolism. Contrast enhanced transaxial images were obtained following the intravenous administration of 93 ml of nonionic contrast. Multiplanar reformatted images and three-dimensional images were obtained on the 3-D workstation and sent to the PACS archival system. COMPARISON: 11/21/2023 FINDINGS: There is no pulmonary embolism within the limitations of respiratory motion involving subsegmental arteries at the lung bases. The heart is enlarged. There is no pericardial effusion. There are postoperative changes of coronary artery bypass grafting and median sternotomy. The sternotomy is nonunited, there is subcutaneous fat stranding around the sternum, this is decreased from prior. There is no organized fluid collection. The gap between the margins of the sternotomy is increased throughout the sternal body. When comparing the chest radiographs, there is a fracture of multiple of the sternotomy wires. There are no enlarged axillary or supraclavicular lymph nodes. There are mildly enlarged mediastinal lymph nodes. There is stranding in the prevascular anterior mediastinum. There are trace bilateral pleural effusions. There is mild bibasilar atelectasis peripheral patchy groundglass opacity in the right middle lobe, and lower lungs likely infectious or inflammatory. No pneumothorax. The imaged upper abdomen demonstrates postoperative changes of cholecystectomy. There is pneumobilia, and there is fat stranding in the region of the jose david hepatis and pancreaticoduodenal groove. As described above, the sternotomy is nonunited, there is interval fracture of multiple of the sternotomy wires, and increase between the sternal fragments. IMPRESSION: 1. No pulmonary embolism with some limitations in subsegmental basilar arteries due to respiratory motion. 2. 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 There is mild soft tissue thickening and fat stranding around the sternum, improved in some areas compared to prior. The findings may reflect evolving postsurgical change, though the increased gap between the sternal fragments, and persistent inflammatory change could reflect sequelae of infection. Correlate with physical examination, patient labs and symptoms. 3. Partially imaged fat stranding in the region of the jose david hepatis pancreaticoduodenal groove, incompletely assessed and could reflect pancreatitis or duodenitis, correlate with patient's symptoms and consider CT of the abdomen if clinically indicated. 4. Likely reactive mediastinal lymphadenopathy. 5. Trace bilateral pleural effusions. ADDENDUM - This addendum is being placed on the report for a time dependent finding on a patient who is admitted to the hospital (2B). Evolving changes of the sternotomy including sternal wire fracture, sternal nonunion, as well as pancreaticoduodenal stranding as described above. These findings were communicated to Dr. Xiong by Dr. Candelario at 03/29/2025 11:06 AM. Preliminary results were provided by the tele-radiologist at 10:52 PM on 03/28/2025. Electronically signed by: Altagracia Candelario M.D. us Alexis Torres MD IMG CT PROCEDURES Final Result * CT Neck Soft Tissue W Contrast (03/28/2025 10:20 PM BRUSH HOLDER INSPECTOR) Anatomical Region Laterality Modality Head and Neck N/A Computed Tomogra phy 03/28/2025 10:1 7 PM BRUSH HOLDER INSPECTOR Impressions 03/29/2025 4:41 PM BRUSH HOLDER INSPECTOR No acute process or disease visualized in the neck. 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 No visualized CT evidence of superinfection of thyroglossal duct cyst. Electronically signed by: Vadim Portillo MD Narrative 03/29/2025 4:41 PM BRUSH HOLDER INSPECTOR EXAMINATION: CT of the neck with contrast HISTORY: right lower jaw swelling. TECHNIQUE: CT of the neck was performed according to standard protocol after the uneventful administration of intravenous contrast. Contrast information: 93 mL Optiray-350 COMPARISON: None available. 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 No abnormal postcontrast enhancement or mass lesion is otherwise identified. No cervical lymphadenopathy is seen by CT size criteria. The bilateral major salivary glands are symmetric and grossly unremarkable. Evaluation of the oral cavity is limited secondary to beam hardening artifact from multiple dental restorations. Within this limitation, multiple dental caries are noted without substantial periapical lucencies or associated subperiosteal abscesses. Bilateral major salivary glands are symmetric and grossly unremarkable. The muscles of the neck are normal. The major arterial vessels of the neck demonstrate normal course and caliber. Fascial planes are preserved and the deep spaces of the neck are normal. The visualized airway is widely patent. The base of the skull and the temporal bones are normal. Limited views of the brain including the cerebellum and brainstem are normal. The visualized portions of the orbits are normal. The visualized portions of the mastoids are normal. The visualized portions of the paranasal sinuses are normal. Unremarkable thyroid gland. Intervertebral disk heights are normal. The spinal canal is normal in caliber. No significant foraminal stenosis is appreciated. Limited examination of the upper thorax shows no suspicious pulmonary nodules or focal consolidations. Partially visualized median sternotomy wires. Procedure Note Vadim Portillo MD - 03/29/2025 EXAMINATION: CT of the neck with contrast HISTORY: right lower jaw swelling. TECHNIQUE: CT of the neck was performed according to standard protocol after the uneventful administration of intravenous contrast. Contrast information: 93 mL Optiray-350 COMPARISON: None available. 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 No abnormal postcontrast enhancement or mass lesion is otherwise identified. No cervical lymphadenopathy is seen by CT size criteria. The bilateral major salivary glands are symmetric and grossly unremarkable. Evaluation of the oral cavity is limited secondary to beam hardening artifact from multiple dental restorations. Within this limitation, multiple dental caries are noted without substantial periapical lucencies or associated subperiosteal abscesses. Bilateral major salivary glands are symmetric and grossly unremarkable. The muscles of the neck are normal. The major arterial vessels of the neck demonstrate normal course and caliber. Fascial planes are preserved and the deep spaces of the neck are normal. The visualized airway is widely patent. The base of the skull and the temporal bones are normal. Limited views of the brain including the cerebellum and brainstem are normal. The visualized portions of the orbits are normal. The visualized portions of the mastoids are normal. The visualized portions of the paranasal sinuses are normal. Unremarkable thyroid gland. Intervertebral disk heights are normal. The spinal canal is normal in caliber. No significant foraminal stenosis is appreciated. Limited examination of the upper thorax shows no suspicious pulmonary nodules or focal consolidations. Partially visualized median sternotomy wires. IMPRESSION: No acute process or disease visualized in the neck. 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 No visualized CT evidence of superinfection of thyroglossal duct cyst. Electronically signed by: Vadim Portillo MD Alexis Torres MD IMG CT PROCEDURES Final Result * (ABNORMAL) Pro B-type natriuretic peptide (03/28/2025 8:20 PM BRUSH HOLDER INSPECTOR) NT-proBNP 1,648(H) <=300 pg/mL Comment: Interpretive Comments: A. Dyspnea in Acute Care Setting All Ages: < 300 pg/ml, acute heart failure unlikely. < 50 yrs: 300 - 450 pg/ml, further investigation warranted. > 450 pg/ml, acute heart failure likely. 50 - 74 yrs: 300 - 900 pg/ml, further investigation warranted. > 900 pg/ml, acute heart failure likely . > or = 75 yrs: 450 - 1800 pg/ml, further investigation warranted. > 1800 pg/ml, acute heart failure likely. B. Non-acute Setting < 75 yrs < 125 pg/ml, rules out heart failure. > or = 125 pg/ml, further investigation warranted. > or = 75 yrs < 450 pg/ml, rules out heart failure. > or = 450 pg/ml, further investigation warranted. - Knowledge of each individual patient's NT-proBNP range may be more useful than using similar cut-points for every patient. Please note that marked elevations in NT-proBNP levels may be observed in state other than Left Ventricular Congestive Failure, including: acute coronary syndromes, right heart strain/failure (including pulmonary embolism and cor pulmonale), critical illness, renal failure, as well as advanced age. - References: 1. Jazmyn RENDON et.al. Eur Heart J. 2006:27:330-337. 2. Everardo JOHN, Newton GALLARDO. J. AM Maribeth Cardiol: Cardiovasc Imag. 2009;2: 216- 225. Interpretive Data Last Revised Date: 2017. Blood 03/28/2025 8:20 PM BRUSH HOLDER INSPECTOR 03/28/2025 8:23 PM BRUSH HOLDER INSPECTOR Alexis Torres MD LAB BLOOD ORDERABLES nal Result Performing Organization Address [facility] de Phone Number JAMESDONOVAN PENA [address] [place] [address] * hCG, blood, quantitative (03/28/2025 8:20 PM BRUSH HOLDER INSPECTOR) Pathologist [facility] hCG, quant <0.1 0.0 - 5.0 IUnits/L Comment: Interpretive Data Male: < 5 IU/L Non- premenopausal Female: <5 IU/L The Miquel hCG Beta Quant assay procedure was used. Results from different manufacturers or methods may not be comparable. Serial testing should be performed using the same method. Interpretive Data was last revised on 2023 Blood 03/28/2025 8:20 PM BRUSH HOLDER INSPECTOR 03/28/2025 8:23 PM BRUSH HOLDER INSPECTOR Alexis Torres MD LAB BLOOD ORDERABLES nal Result Performing Organization Address [facility] Co de Phone Number JUSTINE JEAN [address] [facility] [employer] [place], [place] [id number] * Blood gas, venous (03/28/2025 8:20 PM BRUSH HOLDER INSPECTOR) pH, Venous 7.34 7.32 - 7.43 PCO2, Venous 49 40 - 50 mmHg [facility] PO2, Venous 57 mmHg [facility] Comment: Interpretive Data No Reference Range Established Current Interpretive Data was last revised on 2017. HCO3 Venous, Calculated 24 20 - 30 mmol/L [facility] BE, venous 1 mmol/L [facility] Comment: Interpretive Data No Reference Range Established Current Interpretive Data was last revised on 2017. Blood 03/28/2025 8:20 PM BRUSH HOLDER INSPECTOR 03/28/2025 8:23 PM BRUSH HOLDER INSPECTOR us Alexis Torres MD LAB BLOOD ORDERABLES Fi nal Result JUSTINE [address] Department [place] [address] * XR Chest 1 Vw Portable (03/28/2025 6:52 PM BRUSH HOLDER INSPECTOR) Anatomical Region Laterality Modality Body, Chest N/A Computed Radiogr aphy 03/28/2025 6:55 PM BRUSH HOLDER INSPECTOR Addenda Addendum by Prudence Saldivar MD on 03/28/2025 8:11 PM BRUSH HOLDER INSPECTOR This addendum is being issued to add the foot radiograph results, which were not included in the original report. X-ray right foot 2 views: No prior study is available for comparison. 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 There is marked dorsal soft tissue swelling. No definite osseous erosion or periosteal reaction to suggest acute osteomyelitis. Small plantar calcaneal spur. Enthesophytes at the distal right Achilles insertion. Electronically signed by: Prudence Saldivar M.D. Impressions 03/28/2025 6:55 PM BRUSH HOLDER INSPECTOR CHEST: Comparison is made to a prior study dated 08/22/2024. Please note that the tip of the right costophrenic angle is excluded from the dnxoa-np-[id number] on this study. Median sternotomy wires including some of which are fractured. Patient is rotated. No new focal consolidation, pleural effusion, or pneumothorax. Cardiomediastinal silhouette is mildly enlarged and stable. Electronically signed by: Prudence Saldivar M.D. Narrative 03/28/2025 6:55 PM BRUSH HOLDER INSPECTOR EXAMINATION: XR FOOT RIGHT 2 VIEWS, XR CHEST 1 VIEW HISTORY: Shortness of breath, right great toe swelling. Procedure Note Prudence Saldivar MD - 03/28/2025 EXAMINATION: XR FOOT RIGHT 2 VIEWS, XR CHEST 1 VIEW HISTORY: Shortness of breath, right great toe swelling. IMPRESSION: CHEST: Comparison is made to a prior study dated 08/22/2024. Please note that the tip of the right costophrenic angle is excluded from the sztax-uw-[id number] on this study. Median sternotomy wires including some of which are fractured. Patient is rotated. No new focal consolidation, pleural effusion, or pneumothorax. Cardiomediastinal silhouette is mildly enlarged and stable. Electronically signed by: Prudence Saldivar M.D. us Alexis Torres MD IMG XR PROCEDURES Edite d Result - Final * XR Foot Right 2 Views (03/28/2025 6:52 PM BRUSH HOLDER INSPECTOR) Anatomical Region Laterality Modality Lower Extremities, Foot Right Computed Radiography 03/28/2025 6:55 PM BRUSH HOLDER INSPECTOR Addenda Addendum by Prudence Saldivar MD on 03/28/2025 8:11 PM BRUSH HOLDER INSPECTOR This addendum is being issued to add the foot radiograph results, which were not included in the original report. X-ray right foot 2 views: No prior study is available for comparison. 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 There is marked dorsal soft tissue swelling. No definite osseous erosion or periosteal reaction to suggest acute osteomyelitis. Small plantar calcaneal spur. Enthesophytes at the distal right Achilles insertion. Electronically signed by: Prudence Saldivar M.D. Impressions 03/28/2025 6:55 PM BRUSH HOLDER INSPECTOR CHEST: Comparison is made to a prior study dated 08/22/2024. Please note that the tip of the right costophrenic angle is excluded from the malyf-tf-[id number] on this study. Median sternotomy wires including some of which are fractured. Patient is rotated. No new focal consolidation, pleural effusion, or pneumothorax. Cardiomediastinal silhouette is mildly enlarged and stable. Electronically signed by: Prudence Saldivar M.D. Narrative 03/28/2025 6:55 PM BRUSH HOLDER INSPECTOR EXAMINATION: XR FOOT RIGHT 2 VIEWS, XR CHEST 1 VIEW HISTORY: Shortness of breath, right great toe swelling. Procedure Note Prudence Saldivar MD - 03/28/2025 EXAMINATION: XR FOOT RIGHT 2 VIEWS, XR CHEST 1 VIEW HISTORY: Shortness of breath, right great toe swelling. IMPRESSION: CHEST: Comparison is made to a prior study dated 08/22/2024. Please note that the tip of the right costophrenic angle is excluded from the ruoto-lm-numm on this study. Median sternotomy wires including some of which are fractured. Patient is rotated. No new focal consolidation, pleural effusion, or pneumothorax. Cardiomediastinal silhouette is mildly enlarged and stable. Electronically signed by: Prudence Saldivar M.D. us Alexis Torres MD IMG XR PROCEDURES Edite d Result - Final * eGFR (03/28/2025 4:36 PM BRUSH HOLDER INSPECTOR) eGFR 65 >=60 mL/min/1. 73 m2 Comment: Interpretive Data [...] Current interpretive data was last reviewed 2021. Blood 03/28/2025 4:36 PM BRUSH HOLDER INSPECTOR 03/28/2025 4:44 PM BRUSH HOLDER INSPECTOR us Negrita Jasso MD LAB BLOOD ORDERABLES Final Resul t JUSTINE [address] [address] * (ABNORMAL) Differential, auto (03/28/2025 4:36 PM BRUSH HOLDER INSPECTOR) Neutrophil abs 5.43 1.50 - 6.50 K/cumm Imm gran abs 0.06 0.00 - 0.10 K/cumm [facility] Lymphocyte abs 4.69(H) 0.80 - 3.30 K/cumm [facility] Monocyte abs 1.17(H) 0.20 - 0.80 K/cumm [facility] Eosinophil abs 0.39 0.00 - 0.50 K/cumm [facility] Basophil abs 0.08 0.00 - 0.10 K/cumm [facility] Neutrophil pct 45.9 % [facility] Comment: Interpretive Data Percent cell count reference ranges are not reported, since discordance with absolute values may lead to misinterpretation of CBC data. Current Interpretive Data was last revised on 2017. Imm gran pct 0.5 % [facility] Comment: Interpretive Data Percent cell count reference ranges are not reported, since discordance with absolute values may lead to misinterpretation of CBC data. Current Interpretive Data was last revised on 2017. Lymphocyte pct 39.7 % [facility] Comment: Interpretive Data Percent cell count reference ranges are not reported, since discordance with absolute values may lead to misinterpretation of CBC data. Current Interpretive Data was last revised on 2017. Monocyte pct 9.9 % [facility] Comment: Interpretive Data Percent cell count reference ranges are not reported, since discordance with absolute values may lead to misinterpretation of CBC data. Current Interpretive Data was last revised on 2017. Eosinophil pct 3.3 % [facility] Comment: Interpretive Data Percent cell count reference ranges are not reported, since discordance with absolute values may lead to misinterpretation of CBC data. Current Interpretive Data was last revised on 2017. Basophil pct 0.7 % [facility]ER Comment: Interpretive Data Percent cell count reference ranges are not reported, since discordance with absolute values may lead to misinterpretation of CBC data. Current Interpretive Data was last revised on 2017. Blood 03/28/2025 4:36 PM BRUSH HOLDER INSPECTOR 03/28/2025 4:44 PM BRUSH HOLDER INSPECTOR Negrita Jasso MD LAB BLOOD ORDERABLES Final Resul t Performing Organization Address City/[facility]/ZIP Co de Phone Number JUSTINE PENA [address] Department [employer] [place], [place] [id number] * (ABNORMAL) CBC with auto differential (03/28/2025 4:36 PM BRUSH HOLDER INSPECTOR) WBC 11.82(H) 3.80 - 9.90 K/cumm Hgb 12.0 11.9 - 15.5 g/dL [facility] Hct 38.4 35.6 - 45.5 % [facility] Plt 266 150 - 400 K/cumm [facility] MPV 10.7 9.1 - 12.3 fL [facility] RBC 4.55 3.90 - 5.20 M/cumm [facility] MCV 84.4 81.3 - 96.4 fL [facility] MCH 26.4(L) 27.1 - 33.3 pg [facility] MCHC 31.3(L) 32.3 - 35.7 g/dL [facility] RDW CV 16.9(H) 11.1 - 14.9 % [facility] RDW SD 50.4(H) 35.7 - 48.1 fL [facility] NRBC abs 0.03(H) 0.00 - 0.01 K/cumm [facility] Blood Venous blood specimen / Unknown 03/28/2025 4:36 PM BRUSH HOLDER INSPECTOR 03/28/2025 4:44 PM BRUSH HOLDER INSPECTOR us Negrita Jasso MD LAB BLOOD ORDERABLES Final Resul t Performing Organization Address City/[facility]/ZIP Co de Phone Number JUSTINE PENA [address] Department [place] [address] * (ABNORMAL) Comprehensive metabolic panel (03/28/2025 4:36 PM BRUSH HOLDER INSPECTOR) Sodium 139 135 - 145 mmol/L Potassium, pl 4.3 3.3 - 4.9 mmol/L [facility] Chloride 104 97 - 110 mmol/L [facility] CO2 21(L) 22 - 32 mmol/L [facility] Anion gap 14 2 - 15 mmol/L [facility] BUN 19 6 - 25 mg/dL [facility] Creatinine 1.10 0.60 - 1.10 mg/dL [facility] Glucose 177 70 - 199 mg/dL [facility] Comment: Interpretive Data Fasting glucose >/= 126 [...] Current interpretive data was last revised 2022. Calcium 8.6 8.5 - 10.3 mg/dL [facility] Bilirubin, total 0.3 0.1 - 1.2 mg/dL [facility] Protein, pl 7.7 6.5 - 8.5 g/dL [facility] Albumin 3.5 3.5 - 5.0 g/dL [facility] Alk phos 138(H) 40 - 130 Units/L [facility] ALT 25 7 - 45 Units/L [facility] AST 56(H) 10 - 45 Units/L [facility] Blood 03/28/2025 4:36 PM BRUSH HOLDER INSPECTOR 03/28/2025 4:44 PM BRUSH HOLDER INSPECTOR us Negrita Jasso MD LAB BLOOD ORDERABLES Final Resul t JUTS[address] [place] [address] * ECG 12 lead (03/28/2025 3:26 PM BRUSH HOLDER INSPECTOR) 03/28/2025 3:26 PM BRUSH HOLDER INSPECTOR Narrative [facility] - 03/28/2025 8:46 PM BRUSH HOLDER INSPECTOR Vent Rate: 107 bpm RR Interval: 559 msec AR Interval: 176 msec QRS Duration: 101 msec QT Interval: 348 msec QTC Interval: 411 msec P-R-T [place]: 73 - 24 - 120 degrees IMPRESSION: SINUS TACHYCARDIA ST DEPRESSIONS IN INFERIOR LEADS; POSSIBLE ISCHEMIA POSSIBLE ANTERIOR MYOCARDIAL INFARCTION , AGE INDETERMINATE Electronically Signed By: Mathieu Julian MD, [facility] us Alexis Torres MD ECG ORDERABLES Edited Result - Final [facility] * (ABNORMAL) POCT lipid panel (02/03/2025 2:10 PM CDT) Cholesterol, POC 253 <200 MG/DL HDL, POC 29(A) >=40 mg/dL Triglycerides, POC 275(A) <=149 mg/dL LDL Cholesterol POC 169(A) <=129 mg/dL Chol/HDL Ratio, POC 5.9 NONE Non-HDL Cholesterol, POC 224 NONE mg/dL Cholesterol Total, POC 253(A) 30 - 199 mg/dL Capillary blood 02/03/2025 2 :10 PM CDT us Claire Bills MD POINT OF CARE TEST O RDERABLES Final Result * (ABNORMAL) Albumin Creatinine Ratio, Urine (04/26/2024 10:55 AM BRUSH HOLDER INSPECTOR) Albumin Ur 933.1 mg/L Comment: Interpretive Data No reference range established. Current interpretive data was last revised 2018. Testing performed by: [facility], [address] [place] [address]., [address] Creatinine Ur 55.6 mg/dL [facility] ([facility]) Comment: Interpretive Data No reference range established. Current interpretive data was last revised 2018. Testing performed by: [facility], [address] [place] [address], [place]., [address] Albumin Creatinine Ratio, Ur 1,678(H) 1 - 29 mg/g [facility] ([facility]) Comment:Testing performed by : [address] [place] [address] Urine 04/26/2024 10:5 5 AM BRUSH HOLDER INSPECTOR 04/26/2024 5:35 PM BRUSH HOLDER INSPECTOR Savanna Rogel DO LAB URINE ORDERABLES Final Result [facility] ([place]) [address] [facility] Department [place] [address] * RetinaVue Scanner - OU - Both Eyes (04/19/2024) Anatomical Region Laterality Modality Head Fundus Photograp hy 04/19/2024 Savanna Rogel DO OPHTH PHOTOGRAPHY Final Res ult from Last 3 Months or Most Recently Relevant to Health Maintenance Insurance [facility] Advance Directives For more information, please contact: [phone] * Full Code (Latest Code Status on File) Date Activated Date Inactivated Comments 03/29/2025 4:06 AM 04/07/2025 10:30 PM * Full Code Date Activated Date Inactivated Comments 10/18/2023 2:29 PM 10/23/2023 8:08 PM * Full Code Date Activated Date Inactivated Comments 10/14/2023 8:30 PM 10/18/2023 2:29 PM * Full Code Date Activated Date Inactivated Comments 10/04/2023 10:25 PM 10/12/2023 11:11 PM * Full Code Date Activated Date Inactivated Comments 06/20/2023 9:18 AM 06/21/2023 11:05 PM Care Teams Packing And Shipping Clerk Relationship Specialty Start Date End Date Chayito Sloan NP [address] [place] [address] PCP - General Nurse Practitioner 08/29/23 Dejuan Malcolm MD [address] [facility] [address] [place] [address] Consulting Physician Gastroenterology 06/21/23 Johan Rogel MD [address] [place] [address] Consulting Physician Interventional Cardiology 10/12/23 [place] [address] [facility] [address] [place] [address] Consulting Physician Endocrinology Diabetes & Metabolism 10/12/23 [place] [address] [facility] [address] [place] [address] Consulting Physician Pulmonary Disease 04/02/25 Claire Bills MD [address] [facility] [address], [place] [id number] Consulting Physician Cardiology 04/07/25 Kimberly Liao MD [address] [place] [address] Consulting Physician Nephrology 04/07/25
--- OUTSIDE RECORDS SUMMARY | 2025-04-22 18:09 | XMS_ITS | Clinical Summary ---
Author Organization [facility] Address [address] [place] [address] Care Team Providers Care Armed Security Officer Name Role Phone Alissa Webster MD Primary Care Provider Unavail able Allergies No known active allergies Medications insulin [...] less, will sometimes take 1 Active pancrelipase, Wsd-Jxpj-Abok, (CREON) [address] UNIT [employer]SULE [employer] COATED PARTICLES Take 1 [...] on file Legal Sex Female 10:05 AM FISHER SEAL Gender Identity Not on file Sexual Orientation Not on file Last Filed Vital Signs Vital Sign Reading Time Taken Comments Blood Pressure 138/90 05/29/2023 9:45 AM FISHER SEAL Pulse 87 05/29/2023 9:45 AM FISHER SEAL Temperature 36.7 C (98.1 F) 05/29/2023 9:45 AM FISHER SEAL Respiratory Rate 16 05/29/2023 9:45 AM FISHER SEAL Oxygen Saturation 97% 05/29/2023 9:45 AM FISHER SEAL Inhaled Oxygen Concentration - - Weight 93.9 kg (207 lb 0.2 oz) 05/29/2023 6:10 A M FISHER SEAL Height 151.1 cm (4' 11.5) 05/22/2023 11:[address] Body Mass Index 41.11 05/22/2023 11:48 AM FISHER SEAL Plan of Treatment Health Maintenance Due Date Last Done Comments Cervical Cancer Screening Pa p Smear (Age 30 to 64) Every 3 Years 1984 Annual Physical 01/22/1987 Hepatitis C 01/22/2002 Hepatitis B Vaccines (1 of 3 - 19+ 3-dose series) 01/22/2003 HPV Vaccines (1 - 3-dose SCD M series) 01/22/2011 DTaP, Tdap and Td Vaccines ( 1 - Tdap) 06/23/2013 06/22/2013 Cervical Cancer Screening Pa p with HPV Testing (Age 30 to 64) Every 5 Years 01/22/2014 Cervical Cancer Screening with HPV 01/22/2014 Mammogram Screening 2024 COVID-19 Vaccine (2024-2 6 season) 2025 Influenza Adult (#1) 2025 Hepatitis A Vaccines Aged Out No long er eligible based [...] patient's age to complete this topic Insurance MEDICAID Care Teams Armed Security Officer Relationship Specialty Start Date End Date Alissa Webster MD PCP - General INTERNAL MEDICINE 05/29/23
--- OUTSIDE RECORDS SUMMARY | 2025-04-22 18:09 | XMS_ITS | Encounter Summary ---
Author Organization [facility] Address [address] [place] [address] Phone Care Team Providers Care Card Brusher Name Role Phone Nathalia, Chayito CHAVEZ CNP Primary Care Provider + [phone] Broderick Perez MD Unavailable Albert Olivera MD Unavailable [phone] Marlon Schultz MD Unavailable [phone] Reason for Visit * Reason Comments Medication Refill Encounter Details Date Type Department Care Team (Late Contact Info) Description 04/23/2024 Refill [facility] - [facility] - [place] [address] [place] [address] Albert Olivera MD [address] [place] [address] Medication Refill Social History Tobacco Use Types Packs/Day Years Used Date Smoking Tobacco: Never Smokeless Tobacco: Never Alcohol Use Standard Drinks/Week Comments Not Currently 0 (1 standard drink = 0.6 oz pur e alcohol) Sexually Active Control Partners Comments Yes Comments Unknown Sex and Gender Information Value Date Recorded Sex Assigned at Not on file Legal Sex Female 8:35 AM OCCUPATIONAL HYGIENIST Gender Identity Not on file Sexual Orientation Not on file documented as of this encounter Plan of Treatment Upcoming Encounters Date Type Department Care Team (Late Contact Info) Description 02/02/2026 10:00 AM CDT Office Visit [facility] [address] [place] [address] Fabiano Kothari APRN, CUT OUT OPERATOR [address] [place] [address] documented as of this encounter Visit Diagnoses Not on filedocumented in this encounter Care Teams Card Brusher Relationship Specialty Start Date End Date Chayito Sloan APRN, CUT OUT OPERATOR PCP - General Family Medicine 11/22/23 Broderick Perez MD #2 [facility] [address] [place] [address] Consulting Physician Endocrinology 01/02/24 Albert Olivera MD [address]2 [place] [id number] Consulting Physician Neurology 01/23/24 Marlon Schultz MD #2 [facility] [address] [place] [address] Consulting Physician Urology 01/31/25 documented as of this encounter
--- OUTSIDE RECORDS SUMMARY | 2025-04-22 18:09 | XMS_ITS | Clinical Summary ---
Author Organization [facility] Address [address] [place] [address] Phone Care Team Providers Care Power And Recovery Superintendent Name Role Phone Chayito Sloan APRN, CNP Primary Care Provider + [phone] Broderick Perez MD Unavailable Albert Olivera MD Unavailable [phone] Marlon Schultz MD Unavailable [phone] Allergies Active Allergy Reactions Criticality Noted Date Comments Wound Dressing Adhesive Rash 05/20/2024 Medications ibuprofen (MOTRIN) 800 MG Tablet Take 800 mg by mouth every 6 hours as needed. Active atorvastatin (LIPITOR) 20 MG Tablet Take 20 mg by mouth daily. Active pancrelipase, lipase-protease -amylase, (Creon) [id number] Capsule DR Particles Take 1 Capsule by mouth 3 times daily (with meals). Active fenofibrate 160 MG Tablet Take 160 mg by mouth daily. Active gabapentin (NEURONTIN) 600 MG Tablet Take 600 mg by mouth 3 times daily. Active Continuous Glucose Sensor (Dexcom G7 Sensor) MiscIndications :Type 2 diabetes mellitus with diabetic polyneuropathy, with long-term current use of insulin Every 10 days 9 Each 1 4 Active Continuous Glucose Snow Maker (Dexcom G7 Snow Maker) DeviceIndicatio ns:Type 2 diabetes mellitus with diabetic polyneuropathy, with long-term current use of insulin Check blood sugar before each meal and [...] Active Additional Information Patient not taking.Reported on 01/31/2025 Insulin Lispro, 1 Unit Dial, (HumaLOG KwikPen) 100 UNIT/ML Solution Pen-injector 15 units before each meal; correctional factor insulin of 1:15 if >140 mg/dL, up to 70 units/day 60 mL 1 4 Active Insulin Pen Needle (Pen [place]) 31G X 6 MM Misc 4 times a day 400 Each 3 4 Active Additional Information Patient not taking.Reported on 01/31/2025 Lancets Misc 4 times a day 400 Lancet . 3 4 Active Additional Information Patient not taking.Reported on 01/31/2025 Continuous Glucose Transmitter (Guardian 4 Transmitter) Misc USE with Guardian 4 Sensors TO monitor blood glucose as directed 5 Active metFORMIN (GLUCOPHAGE) 500 MG Tablet TAKE 2 TABLETS BY MOUTH TWICE A DAY WITH MEALS 360 Tablet 5 Active DULoxetine (CYMBALTA) [address] Particles TAKE 1 CAPSULE BY MOUTH TWICE A DAY 60 Capsule 3 5 Active Active Problems Problem Noted Date Diagnosed Date Type 2 diabetes mellitus wit h diabetic polyneuropathy, with long-term current use of insulin 01/10/2024 Encounters Date Type Department Care Team Description 04/07/2025 Telephone [facility] [address] [place] [address] Albert Olivera MD 04/04/2025 Refill [facility] [address] [place] [address] Albert Olivera MD Medication Refill 01/31/2025 11:39 AM CDT - 01/31/2025 11:59 PM CDT Hospital En[facility] [address] [place] [place] [address] Marlon Schultz MD Discharge Disposition: Discharged to home or Selfcare 01/31/2025 10:45 AM CDT Office Visit [facility] [address] [place] [address] Marlon Schultz MD Kidney stones (Primary Dx) Discharge Disposition: Discharged to home or Selfcare 01/31/2025 Results Follow-Up [facility] [address] [place] [address] Marlon Schultz MD XR ABDOMEN KUB FLAT PLATE 01/31/2025 Travel from Last 3 Months Immunizations Immunization Administration Dates Next Due Human Papillomavirus (HPV) Vaccine, Bivalent Human Papillomavirus Vaccine (HPV), quadrivalent 01/04/2007,11/03/2006 MMR Vaccine 04/27/1993 Pneumococcal conjugate PCV20 , polysaccharide [id number] conjugate, adjuvant, PF 08/17/2021 TDAP Vaccine 11/03/2006 [...] on file Legal Sex Female 8:35 AM CINDER MAN Gender Identity Not on file Sexual Orientation Not on file Last Filed Vital Signs Vital Sign Reading Time Taken Comments Blood Pressure 154/88 01/31/2025 10:38 AM CDT Pulse 108 01/31/2025 10:38 AM CDT Temperature 36.6 C (97.9 F) 05/20/2024 9:29 PM CINDER MAN Respiratory Rate 16 01/31/2025 10:38 AM CDT Oxygen Saturation 94% 01/31/2025 10:38 AM CDT Inhaled Oxygen Concentration - - Weight 113.9 kg (251 lb) 01/31/2025 10:38 AM CDT Height 149.9 cm (4' 11) 01/31/2025 10:38 AM CDT Body Mass Index 50.7 01/31/2025 10:38 AM CDT Plan of Treatment Upcoming Encounters Date Type Department Care Team (Late st Contact Info) Description 02/02/2026 10:00 AM CDT Office Visit [facility] [address] [place] [address] Fabiano Kothari, CABLE LAYER, DISSOLVER OPERATOR [address] [place] [address] Health Maintenance Due Date Last Done Comments Diabetes: Eye Exam 1984 Hepatitis C Virus (HCV) Screening 1984 Mammogram 1984 Varicella Immunization (1 of 2 - 13+ 2-dose series) 01/22/1997 Hepatitis B Immunization (1 of 3 - 19+ 3-dose series) 01/22/2003 Pap Smear 01/22/2005 Cervical Cancer Screening (CCS) 01/22/2014 HPV/Cotest 01/22/2014 Td Immunization Every 10 Years (Adults With 1 Tdap) 06/22/2023 06/22/2013, 11/03/2006 Discussion re Starting/Frequency of Mammograms 2024 Influenza Immunization (#1) 2025 SARS-COV-2 Immunization ( season) 2025 08/17/2021, 07/20/2021 Diabetes: Foot Exam 01/09/2025 01/10/2024 Diabetes: Hemoglobin A1c 05/14/2025 07/ 025, 04/19/2024, 01/10/2024, Additional history exists Diabetes: Nephropathy Screening 05/20/2025 05/20/2024, 01/22/2024 Respiratory Syncytial Virus (RSV) Immunization (Adult) (1 - 1-dose 75+ series) 01/22/2059 TdaP Immunization Discontinued 11/03/2006 Human Papillomavirus (HPV) Immunization Completed 05/04/2007, 01/04/2007, 11/03/2006 DTaP/Tdap/Td Immunization Discontinued 06/22/2013, Pneumococcal Immunization Combined Completed 08/17/2021 Meningococcal Immunization (ACWY) Aged Out No longer eligible based on patient's age to complete this topic Rotavirus Immunization Aged Out No lo nger eligible based on patient's age to complete this topic Procedures Procedure Name Priority Date/Time Associated Diagnosis Comments XR ABDOMEN KUB FLAT PLATE Routine 01/31/2025 11:52 AM CDT Kidney stone CMP (COMPREHENSIVE METABOLIC PANEL) STAT 05/20/2024 9:44 PM CINDER MAN POCT GLYCOSYLATED HEMOGLOBIN Routine 01/10/2024 10:34 AM CDT Type 2 diabetes mellitus with diabetic polyneuropathy, with long-term current use of insulin (HCC) from Last 3 Months or Most Recently Relevant to Health Maintenance Results * XR ABDOMEN KUB FLAT PLATE (01/31/2025 11:52 AM CDT) Anatomical Region Laterality Modality Abdomen N/A Digital Radiogra phy 01/31/2025 11:5 2 AM CDT Impressions 01/31/2025 1:32 PM CDT IMPRESSION: 1. No radiopaque renal calculi visualized radiographically. Narrative 01/31/2025 1:32 PM CDT DICTATING PHYSICIAN: Dottie Boudreaux D.O. EXAM: Abdomen KUB, 01/31/2025 COMPARISON: CT abdomen and pelvis 05/20/2024 HISTORY: History of renal calculi. FINDINGS: AP view of the abdomen on 2 images. IUD projects over the pelvis. Surgical clips right upper abdomen. No calcific densities are noted over the renal silhouettes. Punctate right pelvic phlebolith is unchanged. Scattered gas in nondilated loops of bowel in the abdomen. Small to moderate amount of colonic stool. The visualized lung bases are clear. Prior median sternotomy. Procedure Note Dottie Boudreaux DO - 01/31/2025 DICTATING PHYSICIAN: Dottie Boudreaux D.O. EXAM: Abdomen KUB, 01/31/2025 COMPARISON: CT abdomen and pelvis 05/20/2024 HISTORY: History of renal calculi. FINDINGS: AP view of the abdomen on 2 images. IUD projects over thepelvis. Surgical clips right upper abdomen. No calcific densities arenoted over the renal silhouettes. Punctate right pelvic phlebolith isunchanged. Scattered gas in nondilated loops of bowel in the abdomen.Small to moderate amount of colonic stool. The visualized lung bases areclear. Prior median sternotomy. IMPRESSION: 1. No radiopaque renal calculi visualized radiographically. [facility] Darrell Schultz MD [facility] DIAGNOSTIC ORDERABLES Marilyn l Result * (ABNORMAL) CMP (Comprehensive Metabolic Panel) (05/20/2024 9:44 PM CINDER MAN) SODIUM 139 136 - 145 mmol/L 05/20/2024 10:34 PM [facility] POTASSIUM 4.6 3.5 - 5.1 mmol/L 05/20/2024 10:34 PM [facility] CHLORIDE 105 98 - 107 mmol/L 05/20/2024 10:34 PM [facility] CO2, VENOUS 22 22 - 30 mmol/L 05/20/2024 10:34 PM [facility] ANION GAP 16.6 <18.0 mmol/L 05/20/2024 10:34 PM [facility] GLUCOSE 175(H) 70 - 99 mg/dL 05/20/2024 10:34 PM [facility] BUN 11 5 - 18 mg/dL 05/20/2024 10:34 PM [facility] CREATININE, BLOOD 0.95 0.60 - 1.00 mg/dL 05/20/2024 10:34 PM [facility] BUN/CREATININE RATIO 12 12 - 20 ratio 05/20/2024 10:34 PM [facility] TOTAL PROTEIN 8.1 6.3 - 8.2 g/dL 05/20/2024 10:34 PM [facility] ALBUMIN 3.6 3.5 - 5.0 g/dL 05/20/2024 10:34 PM [facility] A/G RATIO 0.8(L) 1.0 - 2.2 05/20/2024 10:34 PM CINDER MAN [facility] CALCIUM 9.2 8.7 - 10.5 mg/dL 05/20/2024 10:34 PM CINDER MAN [facility] T BILI 0.2 0.2 - 1.2 mg/dL 05/20/2024 10:34 PM CINDER MAN [facility] SGOT (AST) 48(H) 5 - 34 U/L 05/20/2024 10:34 PM CINDER MAN [facility] SGPT (ALT) 38 0 - 55 U/L 05/20/2024 10:34 PM [facility] ALKALINE PHOSPHATASE 94 40 - 150 U/L 05/20/2024 10:34 PM [facility] GFR, ESTIMATED >60 >=60 05/20/2024 10:34 PM [facility] Comment: Creatinine Clearance is the preferred criteria for selecting drug dose adjustments in renally impaired patients. The GFR is provided as additional pertinent clinical information. GFR is reported in mL/min/1.73 sq m. Calculation based on the Chronic Kidney Disease Epidemiology Collaboration (CKD- EPI) equation refit without adjustment for race. GFR, EST. >60 >=60 025 10:34 PM CINDER MAN [facility] GFR, EST. NONAFRICAN >60 >=60 05/20/2024 10:34 PM [facility] Blood Venipuncture / Unknown 05/20/2024 9:44 PM CINDER MAN 05/20/2024 10:03 PM CINDER MAN us Donte Palomares DO CHEMISTRY ORDERABLES Fi nal Result [facility] [address] [place] [address] * (ABNORMAL) POCT GLYCOSYLATED HEMOGLOBIN (01/10/2024 10:34 AM CDT) HGB-A1C 10.1(A) 4 - 6 % Blood 01/10/2024 10:3 4 AM CDT Broderick Perez MD POINT OF CARE TESTING (MANUAL) F inal Result from Last 3 Months or Most Recently Relevant to Health Maintenance Insurance MEDICAID [place] Care Teams Power And Recovery Superintendent Relationship Specialty Start Date End Date Sloan, SCOTT Stratton CNP PCP - General Family Medicine 11/22/23 Broderick Perez MD #2 [facility] [address] [place] [address] Consulting Physician Endocrinology 01/02/24 Albert Olivera MD [address] [place] [address] Consulting Physician Neurology 01/23/24 Marlon Schultz MD #2 [facility] [address] [place] [address] Consulting Physician Urology 01/31/25
--- OUTSIDE RECORDS SUMMARY | 2025-04-22 18:09 | XMS_ITS | Encounter Summary ---
Author Organization [facility] Address [address] [place] [address] Phone Care Team Providers Care Apprentice Pattern Maker Name Role Phone Nathalia, Chayito CHAVEZ CNP Primary Care Provider + [phone] Broderick Perez MD Unavailable Albert Olivera MD Unavailable [phone] Marlon Schultz MD Unavailable [phone] Reason for Visit * Reason Comments Medication Refill Encounter Details Date Type Department Care Team (Late Contact Info) Description 04/04/2025 Refill [facility] - [place] [address] [place] [address] Albert Olivera MD [address] [place] [address] Medication Refill Social History Tobacco Use Types Packs/Day Years Used Date Smoking Tobacco: Never Smokeless Tobacco: Never Alcohol Use Standard Drinks/Week Comments Not Currently 0 (1 standard drink = 0.6 oz pur e alcohol) Sexually Active Control Partners Comments Yes Comments Unknown Sex and Gender Information Value Date Recorded Sex Assigned at Not on file Legal Sex Female 8:35 AM DIGITAL RECRUITER Gender Identity Not on file Sexual Orientation Not on file documented as of this encounter Plan of Treatment Upcoming Encounters Date Type Department Care Team (Late Contact Info) Description 02/02/2026 10:00 AM CDT Office Visit [facility] [address] [place] [address] Fabiano Kothari APRN, CARDIOPULMONARY TECHNICIAN [address] [place] [address] documented as of this encounter Visit Diagnoses Not on filedocumented in this encounter Care Teams Apprentice Pattern Maker Relationship Specialty Start Date End Date Chayito Sloan APRN, CARDIOPULMONARY TECHNICIAN PCP - General Family Medicine 11/22/23 Broderick Perez MD #2 [facility] [address] [place] [address] Consulting Physician Endocrinology 01/02/24 Albert Olivera MD [address] [place] [address] Consulting Physician Neurology 01/23/24 Marlon Schultz MD #2 [facility] [address] [place] [address] Consulting Physician Urology 01/31/25 documented as of this encounter
[2025-04-22 18:11] LABS: NT Pro B Type Natriuretic Pept 1450 pg/mL (19.9-100)
== END 2025-04-22 16:31 | disposition home or self-care (01) ==
PROVIDERS: PCP Nurse Practitioner Family; Visit Provider Nurse Practitioner Family
DX: I50.20 Unspecified systolic (congestive) heart failure (principal)
CPT/HCPCS: 36415; 80048; 83880